=== PATIENT | female | born 1970 | race Caucasian/White ===

== ENCOUNTER → 2021-10-26 13:55 | Outpatient (BNVA) | payer BC, SELFPAY | PROVIDERS: PCP Internal Medicine; Visit Provider Internal Medicine Rheumatology | DX: Z13.89 Encounter for screening for other disorder (principal) ==

== ENCOUNTER → 2022-10-18 13:36 | Outpatient (BNVA) | payer BC, SELFPAY | PROVIDERS: PCP Internal Medicine; Visit Provider Internal Medicine Rheumatology | DX: Z13.89 Encounter for screening for other disorder (principal) ==

== ENCOUNTER 2022-10-18 14:46 | Outpatient (REF) | payer BC, SELFPAY ==
--- NOTE | ~2022-10-18 | XR_ITS ---
EXAMINATION: XR KNEE, RIGHT CLINICAL INFORMATION: Bilateral osteoarthritis at the knee COMPARISON: None available. TECHNIQUE: Three views of the right knee. FINDINGS: Bones and soft tissues are normal. No fracture or joint effusion. Alignment is anatomic. Joint spaces are well maintained. No abnormal soft tissue calcification. XR/XR knee RT 3V IMPRESSION: Normal right knee.
--- NOTE | ~2022-10-18 | XR_ITS ---
EXAMINATION: XR SHOULDER, RIGHT CLINICAL INFORMATION: Pain COMPARISON: None available. TECHNIQUE: AP external rotation, Grashey, scapular Y, and axillary views of the right shoulder. FINDINGS: The bones and soft tissues are normal. No fracture. Glenohumeral and acromioclavicular alignment is anatomic with normal joint space. No abnormal soft tissue calcifications. XR/XR shoulder RT min 2V IMPRESSION: Normal right shoulder.
== END 2022-10-18 14:47 | disposition home or self-care (01) ==
LOC: HO.XRAY 14:46
PROVIDERS: PCP Internal Medicine; Visit Provider Internal Medicine Rheumatology
DX: M17.0 Bilateral primary osteoarthritis of knee (principal); M25.511 Pain in right shoulder; M79.7 Fibromyalgia
CPT/HCPCS: 73030; 73562

== ENCOUNTER → 2022-11-30 08:38 | Outpatient (BNVA) | payer BC, SELFPAY | PROVIDERS: PCP Internal Medicine; Visit Provider Internal Medicine Rheumatology | DX: M75.81 Other shoulder lesions, right shoulder (principal); M22.41 Chondromalacia patellae, right knee; M79.7 Fibromyalgia | CPT/HCPCS: 20610 ==

== ENCOUNTER → 2023-11-22 14:50 | Outpatient (RCR) | payer BC, SELFPAY ==
--- NOTE | 2022-08-30 14:27 | MHC.OT.DC ---
[address] [phone] F: [phone] Occupational Therapy Discharge Note Patient Name: Kristy Li Provider: Pierre Salgado Diagnosis: Osteoarthritis bilateral hands, shoulders, knees Date of Surgery: Date of Evaluation: 07/21/22 Date of Discharge: 08/30/22 Treatments to Date: 7 Cancellations to Date: 2 No Shows to Date: 0 Discharge Status: Discharge Summary: Significant improvement in pain and bilateral dogger strength [facility] right 47 lb left 30 lb Improved pain management with splints and jt protection techniques Quick DASH score 25 pts Extreme 1st MP jt laxity with left thumb . Thumb pain improvement after ionto with dex Pt D/C self due to transportation issue Electronically Signed By: Tyra Brown OT CHT CLT Reviewed/agree with student documentation: N/A Therapist: Please Sign and return to therapist, thank you for your referral.
== END | disposition home or self-care (01) ==
LOC: HO.OT 07-21 12:55
PROVIDERS: PCP Internal Medicine; Visit Provider Student in an Organized Health Care Education/Training Program
DX: M19.041 Primary osteoarthritis, right hand (principal); M19.042 Primary osteoarthritis, left hand
CPT/HCPCS: 29130; 97033; 97035; 97110; 97166; 97535; 97760

== ENCOUNTER 2024-10-30 14:07 | Outpatient (AMB) | payer BC, SELFPAY ==
--- NOTE | 2024-10-30 14:07 | A.OFFVIS_ITS ---
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 Allergies aspirin [ASPIRIN] Allergy (Intermediate, Unverified 10/18/22 13:53) STOMACH UPSET acetaminophen [Percocet] Allergy (Unknown, Verified 10/18/22 13:53) Unknown lidocaine [LIDOCAINE] Allergy (Unknown, Unverified 10/18/22 13:53) NAUSEA/VOMITING codeine [CODEINE] Adverse Reaction (Intermediate, Unverified 10/18/22 13:53) STOMACH UPSET oxycodone [From PERCOCET] Adverse Reaction (Intermediate, Unverified 10/18/22 13:53) STOMACH UPSET Lactose Allergy (Unknown, Uncoded 10/18/22 13:53) Unknown HPI HPI OA: Details: She was having hand pain but saw [facility] and recieved [facility] splints and left cortisone injection. She is planning right [facility] cortisone injection next week. She has had benefit with splinting and left cortisone injection. Hip pain for 4 years. She is unable to sleep on her sides. She is experiencing groin pain. She has history of fibromyalgia and has pain all over. She sees a neurologist who prescribes pregabalin. Neurologists took over prescription for education technician Dr. Worrell when he retired. She is experiencing numbness in her whole back. She saw a chiropractor who did a CT scan of her back and reports she has arthritis. [facility] Medical History (Updated 10/30/24 @ 15:21 by Yuval Rodriguez MD) FH: cholecystectomy Osteoarthritis, hand Osteoarthritis of knees, bilateral Fibromyalgia Surgical History History of esophagogastroduodenoscopy (EGD) History of carpal tunnel release of both wrists Family History Father Stroke CVD (cardiovascular disease) Mother Gastritis Skin cancer Social History Household Members: Spouse Housing: House Are you a primary career placement services counselor to a significant other at home: No Do you presently have visiting nurse or other home services: No 75 years or older and lives alone: No Alcohol intake: never Patient Tobacco Use Status: Never used Tobacco e-Cigarette/Vaping Use: Never Used service: No Current occupational status: disabled Physical Exam Vital Signs: Last Vital Signs Pulse 90 10/30/24 14:08 Pulse Ox 96 10/30/24 14:08 Oxygen Delivery Method Room Air 10/30/24 14:08 BMI result Body Mass Index 28.9 Const Other: General: Comfortable Skin: No lesions seen MSK: Diffuse allodynia. Multiple tender points on back. Normal cervical range of motion. Normal range of motion of upper extremities and lower extremities. Tender to palpate bilateral trochanteric bursae. Normal hip range of motion. She has tenderness of bilateral groin region on palpation. Assessment & Plan Assessment & Plan (1) Greater trochanteric bursitis of both hips: Comment: Discussed diagnosis and conservative management. She has not tolerated NSAIDs in the past due to GI upset. She would like to try physical therapy. Code(s): M70.61 - Trochanteric bursitis, right hip; M70.62 - Trochanteric bursitis, left hip Category: Medical Plan: PT ordered for hip strengthening program Return to clinic in 3 months (2) Fibromyalgia: Comment: Diffuse allodynia is consistent with fibromyalgia. She is on pregabalin. Code(s): M79.7 - Fibromyalgia Category: Medical Plan: I recommend PCP follow-up for further management of fibromyalgia I recommended aquatic therapy. At this time it is unaffordable for patient to join the gym (3) Hip pain, bilateral: Comment: Chronic bilateral groin pain. Code(s): M25.551 - Pain in right hip; M25.552 - Pain in left hip Category: Medical Plan: Bilateral hip x-rays ordered to evaluate for hip pathology contributing to her pain Return to clinic in 3 months Orders: Orders PT Evaluation and Treatment Today M70.61 - Trochanteric bursitis, right hip, M70.62 - Trochanteric bursitis, left hip, M79.7 - Fibromyalgia XR hips ZOFIA min 3V Today M25.551 - Pain in right hip, M25.552 - Pain in left hip Coding Level of Care Code Est Pt Level 4 (48095) Complex EM visit Add On G2211 Diagnoses Greater trochanteric bursitis of both hips M70.61; M70.62 Fibromyalgia M79.7 Hip pain, bilateral M25.551; M25.552
[2024-10-30 14:08] VITALS: BP 120/80; PULSE 90; O2SAT 96; BMI 28.9
--- OUTSIDE RECORDS SUMMARY | 2024-10-30 15:27 | XMS_ITS ---
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 SECA done. Previous weight was 147. Today the patient weight is 143. Pt states she is doing well. MEDICATIONS Medication SIG (Take, Route, Frequency, Duration) Notes Start Date End Date Status Sulfamethoxazole-Trimethopr im 800-160 MG Oral for 7 Days Active hydroCHLOROthiazide 12.5 MG TAKE ONE CAP JAILENE DAILY Oral for 30 Days Active Potassium Chloride ER 10 MEQ TAKE ONE CAPSULE TWICE DAILY Oral for 30 Days Active Montelukast Sodium 10 MG Oral for 90 Days Active Sucralfate 1 GM Oral for 30 Days Active Atorvastatin Calcium 20 MG TAKE ONE TABL ET DAILY Oral for 90 Days Active Trelegy Ellipta 100-62.5-25 MCG/ACT Inhalation for 30 Days Active Cymbalta 30 MG 1 capsule Orally Once a day twice daily Active Pantoprazole Sodium 40 MG TAKE ONE TABLE T EVERY DAY Oral for 90 Days Active Cetirizine HCl 10 MG TAKE ONE TABLET BY MOUTH TWICE DAILY Oral for 90 Days Active traZODone HCl 50 MG TAKE 1/2 TO 1 TABLET EVERY NIGHT AT BEDTIME NEEDED FOR SLEEP Oral for 30 Days Active Zepbound 5 MG/0.5ML 0.5 mL Subcutaneous once weekly for 30 days Active Albuterol Sulfate (2.5 MG/3ML) 0.083% PLEASE SEE ATTACHED FOR DETAILED DIRECTIONS Inhalation for 12 Days Active SOCIAL HISTORY Tobacco Use: Social History Observation Description Date Details (start date - stop date) Never Smoker NA - NA Sex Assigned At : Social History Observation Description Sex Assigned At Unknown Tobacco Use/Smoking Question Answer Notes Are you a nonsmoker VITAL SIGNS Blood pressure systolic 100 mm Hg 06/13/20 24 Blood pressure diastolic 56 mm Hg 024 Heart Rate 80 /min 06/13/2024 Height 59 in 06/13/2024 Weight 143 lbs 06/13/2024 BMI 28.88 kg/m2 06/13/2024 Oximetry 99 % 06/13/2024 Encounters Encounter Location Date Provider Diagnosis [address] [facility] [address] [place] [address] 06/13/2024 Maddi Svrcek Overweight E66.3 ; B RI 28.0-28.9,adult Z68.28 ; Essential hypertension I10 ; Anxiety disorder, unspecified F41.9 ; Depression, unspecified F32.A ; Fibromyalgia M79.7 and Weight loss counseling, encounter for Z71.3 ASSESSMENTS Encounter Date Diagnosis Assessment Notes Treatment Notes Treatment Clinical Notes Section Notes 06/13/2024 Overweight (ICD-10 - E66.3) #Obesity. 06/13/24: 143 pounds, BMI 28.9. She is doing well on Zepbound 5 mg. Her weight and fat mass are down however muscle mass is also down. Discussed importance of protein intake and need for regular exercise including resistance training. Will leave her on current dose and monitor muscle mass at follow-up in 1 month. Follow-up sooner with any concerns. 05/09/24: 147 pounds, BMI 29.7. She is doing fantastic on Zepbound 5 mg. Continue increased protein intake, hydration and regular exercise. Will increase resistance training. Follow-up in 1 month sooner with any concerns. 04/11/24: 155.6 pounds, BMI 31.4. She is doing well on Zepbound 2.5 mg. Will increase to 5 mg on next refill. Reviewed importance of protein intake, hydration and regular exercise including resistance training. Will continue to work on lifestyle modifications and follow-up in 1 month. Follow-up sooner with any concerns. 03/15/24: 160.7 pounds, BMI 32.5. #Hypertension. Followed by PCP. Controlled. #Anxiety and depression. Followed by psychiatry and therapy. Currently on Cymbalta. #Fibromyalgia. On Cymbalta as above The patient will continue exercise regimen with an emphasis on improving/increasing steps to at least 6,000-10,000 steps per day. Increasing cardio and strength training exercises as tolerated to improve weight loss and work on building muscle mass. Patient is committed to smarter eating with calorie counting and mindful eating. Limiting processed foods and carbohydrates and increasing leafy greens and lean proteins as well as fruits into their diet. Patient was counseled on the importance of eating local, organic food when possible. Patient has been counseled regarding effects of GLP/GIP-1 agonists and other FDA approved weight loss medications with regards to a multifactorial approach of weight loss as mentioned above and that the medication alone will not be sufficient to meet patients goals. We discussed holistic medication approach with emphasis on lifestyle modification. Discussed obesity as it increases risk of diabetes, cardiovascular disease, and/or organ damage. We spent a lot of time discussing the relationship between food, exercise, sleep, mental health, and obesity. We discussed the importance of having SECAs done every visit and having accountability done during these visits. That the scale is done to monitor not only weight loss but the body composition during medication management and healthy lifestyle changes. We discussed that if the patient is unable at times to financially afford this scale that we would rather waive the fee and have the scale done than have the patient not have the scale obtained. Will follow up with the patient in 4 weeks time to monitor weight loss. Total time was 30 min, greater than 50 % of time was spent on care coordination Case discussed with collaborating physician Marzena Srinivasan who reviewed the assessment and plan. Chart, medications, labs, vital signs reviewed. Dictation was accomplished with the use of Oree voice recognition software, prone to medical misidentifications and grammatical errors. This is unintentional and the practitioner does try to identify and correct these, but some could still be present. Please do not hesitate to contact practitioner for clarification. All questions answered to patients satisfaction. Patient verbalized understanding of diagnosis and treatments explained. To call sooner prior to next visit it any questions/concerns arise. 06/13/2024 BMI 28.0-28.9,adult (ICD-10 - Z68.28) #Obesity. 06/13/24: 143 pounds, BMI 28.9. She is doing well on Zepbound 5 mg. Her weight and fat mass are down however muscle mass is also down. Discussed importance of protein intake and need for regular exercise including resistance training. Will leave her on current dose and monitor muscle mass at follow-up in 1 month. Follow-up sooner with any concerns. 05/09/24: 147 pounds, BMI 29.7. She is doing fantastic on Zepbound 5 mg. Continue increased protein intake, hydration and regular exercise. Will increase resistance training. Follow-up in 1 month sooner with any concerns. 04/11/24: 155.6 pounds, BMI 31.4. She is doing well on Zepbound 2.5 mg. Will increase to 5 mg on next refill. Reviewed importance of protein intake, hydration and regular exercise including resistance training. Will continue to work on lifestyle modifications and follow-up in 1 month. Follow-up sooner with any concerns. 03/15/24: 160.7 pounds, BMI 32.5. #Hypertension. Followed by PCP. Controlled. #Anxiety and depression. Followed by psychiatry and therapy. Currently on Cymbalta. #Fibromyalgia. On Cymbalta as above The patient will continue exercise regimen with an emphasis on improving/increasing steps to at least 6,000-10,000 steps per day. Increasing cardio and strength training exercises as tolerated to improve weight loss and work on building muscle mass. Patient is committed to smarter eating with calorie counting and mindful eating. Limiting processed foods and carbohydrates and increasing leafy greens and lean proteins as well as fruits into their diet. Patient was counseled on the importance of eating local, organic food when possible. Patient has been counseled regarding effects of GLP/GIP-1 agonists and other FDA approved weight loss medications with regards to a multifactorial approach of weight loss as mentioned above and that the medication alone will not be sufficient to meet patients goals. We discussed holistic medication approach with emphasis on lifestyle modification. Discussed obesity as it increases risk of diabetes, cardiovascular disease, and/or organ damage. We spent a lot of time discussing the relationship between food, exercise, sleep, mental health, and obesity. We discussed the importance of having SECAs done every visit and having accountability done during these visits. That the scale is done to monitor not only weight loss but the body composition during medication management and healthy lifestyle changes. We discussed that if the patient is unable at times to financially afford this scale that we would rather waive the fee and have the scale done than have the patient not have the scale obtained. Will follow up with the patient in 4 weeks time to monitor weight loss. Total time was 30 min, greater than 50 % of time was spent on care coordination Case discussed with collaborating physician Marzena Srinivasan who reviewed the assessment and plan. Chart, medications, labs, vital signs reviewed. Dictation was accomplished with the use of Oree voice recognition software, prone to medical misidentifications and grammatical errors. This is unintentional and the practitioner does try to identify and correct these, but some could still be present. Please do not hesitate to contact practitioner for clarification. All questions answered to patients satisfaction. Patient verbalized understanding of diagnosis and treatments explained. To call sooner prior to next visit it any questions/concerns arise. 06/13/2024 Essential hypertension (ICD-10 - I10) #Obesity. 06/13/24: 143 pounds, BMI 28.9. She is doing well on Zepbound 5 mg. Her weight and fat mass are down however muscle mass is also down. Discussed importance of protein intake and need for regular exercise including resistance training. Will leave her on current dose and monitor muscle mass at follow-up in 1 month. Follow-up sooner with any concerns. 05/09/24: 147 pounds, BMI 29.7. She is doing fantastic on Zepbound 5 mg. Continue increased protein intake, hydration and regular exercise. Will increase resistance training. Follow-up in 1 month sooner with any concerns. 04/11/24: 155.6 pounds, BMI 31.4. She is doing well on Zepbound 2.5 mg. Will increase to 5 mg on next refill. Reviewed importance of protein intake, hydration and regular exercise including resistance training. Will continue to work on lifestyle modifications and follow-up in 1 month. Follow-up sooner with any concerns. 03/15/24: 160.7 pounds, BMI 32.5. #Hypertension. Followed by PCP. Controlled. #Anxiety and depression. Followed by psychiatry and therapy. Currently on Cymbalta. #Fibromyalgia. On Cymbalta as above The patient will continue exercise regimen with an emphasis on improving/increasing steps to at least 6,000-10,000 steps per day. Increasing cardio and strength training exercises as tolerated to improve weight loss and work on building muscle mass. Patient is committed to smarter eating with calorie counting and mindful eating. Limiting processed foods and carbohydrates and increasing leafy greens and lean proteins as well as fruits into their diet. Patient was counseled on the importance of eating local, organic food when possible. Patient has been counseled regarding effects of GLP/GIP-1 agonists and other FDA approved weight loss medications with regards to a multifactorial approach of weight loss as mentioned above and that the medication alone will not be sufficient to meet patients goals. We discussed holistic medication approach with emphasis on lifestyle modification. Discussed obesity as it increases risk of diabetes, cardiovascular disease, and/or organ damage. We spent a lot of time discussing the relationship between food, exercise, sleep, mental health, and obesity. We discussed the importance of having SECAs done every visit and having accountability done during these visits. That the scale is done to monitor not only weight loss but the body composition during medication management and healthy lifestyle changes. We discussed that if the patient is unable at times to financially afford this scale that we would rather waive the fee and have the scale done than have the patient not have the scale obtained. Will follow up with the patient in 4 weeks time to monitor weight loss. Total time was 30 min, greater than 50 % of time was spent on care coordination Case discussed with collaborating physician Marzena Srinivasan who reviewed the assessment and plan. Chart, medications, labs, vital signs reviewed. Dictation was accomplished with the use of Oree voice recognition software, prone to medical misidentifications and grammatical errors. This is unintentional and the practitioner does try to identify and correct these, but some could still be present. Please do not hesitate to contact practitioner for clarification. All questions answered to patients satisfaction. Patient verbalized understanding of diagnosis and treatments explained. To call sooner prior to next visit it any questions/concerns arise. 06/13/2024 Anxiety disorder, unspecified (ICD-10 - F41.9) #Obesity. 06/13/24: 143 pounds, BMI 28.9. She is doing well on Zepbound 5 mg. Her weight and fat mass are down however muscle mass is also down. Discussed importance of protein intake and need for regular exercise including resistance training. Will leave her on current dose and monitor muscle mass at follow-up in 1 month. Follow-up sooner with any concerns. 05/09/24: 147 pounds, BMI 29.7. She is doing fantastic on Zepbound 5 mg. Continue increased protein intake, hydration and regular exercise. Will increase resistance training. Follow-up in 1 month sooner with any concerns. 04/11/24: 155.6 pounds, BMI 31.4. She is doing well on Zepbound 2.5 mg. Will increase to 5 mg on next refill. Reviewed importance of protein intake, hydration and regular exercise including resistance training. Will continue to work on lifestyle modifications and follow-up in 1 month. Follow-up sooner with any concerns. 03/15/24: 160.7 pounds, BMI 32.5. #Hypertension. Followed by PCP. Controlled. #Anxiety and depression. Followed by psychiatry and therapy. Currently on Cymbalta. #Fibromyalgia. On Cymbalta as above The patient will continue exercise regimen with an emphasis on improving/increasing steps to at least 6,000-10,000 steps per day. Increasing cardio and strength training exercises as tolerated to improve weight loss and work on building muscle mass. Patient is committed to smarter eating with calorie counting and mindful eating. Limiting processed foods and carbohydrates and increasing leafy greens and lean proteins as well as fruits into their diet. Patient was counseled on the importance of eating local, organic food when possible. Patient has been counseled regarding effects of GLP/GIP-1 agonists and other FDA approved weight loss medications with regards to a multifactorial approach of weight loss as mentioned above and that the medication alone will not be sufficient to meet patients goals. We discussed holistic medication approach with emphasis on lifestyle modification. Discussed obesity as it increases risk of diabetes, cardiovascular disease, and/or organ damage. We spent a lot of time discussing the relationship between food, exercise, sleep, mental health, and obesity. We discussed the importance of having SECAs done every visit and having accountability done during these visits. That the scale is done to monitor not only weight loss but the body composition during medication management and healthy lifestyle changes. We discussed that if the patient is unable at times to financially afford this scale that we would rather waive the fee and have the scale done than have the patient not have the scale obtained. Will follow up with the patient in 4 weeks time to monitor weight loss. Total time was 30 min, greater than 50 % of time was spent on care coordination Case discussed with collaborating physician Marzena Srinivasan who reviewed the assessment and plan. Chart, medications, labs, vital signs reviewed. Dictation was accomplished with the use of Oree voice recognition software, prone to medical misidentifications and grammatical errors. This is unintentional and the practitioner does try to identify and correct these, but some could still be present. Please do not hesitate to contact practitioner for clarification. All questions answered to patients satisfaction. Patient verbalized understanding of diagnosis and treatments explained. To call sooner prior to next visit it any questions/concerns arise. 06/13/2024 Depression, unspecified (ICD-10 - F32.A) #Obesity. 06/13/24: 143 pounds, BMI 28.9. She is doing well on Zepbound 5 mg. Her weight and fat mass are down however muscle mass is also down. Discussed importance of protein intake and need for regular exercise including resistance training. Will leave her on current dose and monitor muscle mass at follow-up in 1 month. Follow-up sooner with any concerns. 05/09/24: 147 pounds, BMI 29.7. She is doing fantastic on Zepbound 5 mg. Continue increased protein intake, hydration and regular exercise. Will increase resistance training. Follow-up in 1 month sooner with any concerns. 04/11/24: 155.6 pounds, BMI 31.4. She is doing well on Zepbound 2.5 mg. Will increase to 5 mg on next refill. Reviewed importance of protein intake, hydration and regular exercise including resistance training. Will continue to work on lifestyle modifications and follow-up in 1 month. Follow-up sooner with any concerns. 03/15/24: 160.7 pounds, BMI 32.5. #Hypertension. Followed by PCP. Controlled. #Anxiety and depression. Followed by psychiatry and therapy. Currently on Cymbalta. #Fibromyalgia. On Cymbalta as above The patient will continue exercise regimen with an emphasis on improving/increasing steps to at least 6,000-10,000 steps per day. Increasing cardio and strength training exercises as tolerated to improve weight loss and work on building muscle mass. Patient is committed to smarter eating with calorie counting and mindful eating. Limiting processed foods and carbohydrates and increasing leafy greens and lean proteins as well as fruits into their diet. Patient was counseled on the importance of eating local, organic food when possible. Patient has been counseled regarding effects of GLP/GIP-1 agonists and other FDA approved weight loss medications with regards to a multifactorial approach of weight loss as mentioned above and that the medication alone will not be sufficient to meet patients goals. We discussed holistic medication approach with emphasis on lifestyle modification. Discussed obesity as it increases risk of diabetes, cardiovascular disease, and/or organ damage. We spent a lot of time discussing the relationship between food, exercise, sleep, mental health, and obesity. We discussed the importance of having SECAs done every visit and having accountability done during these visits. That the scale is done to monitor not only weight loss but the body composition during medication management and healthy lifestyle changes. We discussed that if the patient is unable at times to financially afford this scale that we would rather waive the fee and have the scale done than have the patient not have the scale obtained. Will follow up with the patient in 4 weeks time to monitor weight loss. Total time was 30 min, greater than 50 % of time was spent on care coordination Case discussed with collaborating physician Marzena Srinivasan who reviewed the assessment and plan. Chart, medications, labs, vital signs reviewed. Dictation was accomplished with the use of Oree voice recognition software, prone to medical misidentifications and grammatical errors. This is unintentional and the practitioner does try to identify and correct these, but some could still be present. Please do not hesitate to contact practitioner for clarification. All questions answered to patients satisfaction. Patient verbalized understanding of diagnosis and treatments explained. To call sooner prior to next visit it any questions/concerns arise. 06/13/2024 Fibromyalgia (ICD-10 - M79.7) #Obesity. 06/13/24: 143 pounds, BMI 28.9. She is doing well on Zepbound 5 mg. Her weight and fat mass are down however muscle mass is also down. Discussed importance of protein intake and need for regular exercise including resistance training. Will leave her on current dose and monitor muscle mass at follow-up in 1 month. Follow-up sooner with any concerns. 05/09/24: 147 pounds, BMI 29.7. She is doing fantastic on Zepbound 5 mg. Continue increased protein intake, hydration and regular exercise. Will increase resistance training. Follow-up in 1 month sooner with any concerns. 04/11/24: 155.6 pounds, BMI 31.4. She is doing well on Zepbound 2.5 mg. Will increase to 5 mg on next refill. Reviewed importance of protein intake, hydration and regular exercise including resistance training. Will continue to work on lifestyle modifications and follow-up in 1 month. Follow-up sooner with any concerns. 03/15/24: 160.7 pounds, BMI 32.5. #Hypertension. Followed by PCP. Controlled. #Anxiety and depression. Followed by psychiatry and therapy. Currently on Cymbalta. #Fibromyalgia. On Cymbalta as above The patient will continue exercise regimen with an emphasis on improving/increasing steps to at least 6,000-10,000 steps per day. Increasing cardio and strength training exercises as tolerated to improve weight loss and work on building muscle mass. Patient is committed to smarter eating with calorie counting and mindful eating. Limiting processed foods and carbohydrates and increasing leafy greens and lean proteins as well as fruits into their diet. Patient was counseled on the importance of eating local, organic food when possible. Patient has been counseled regarding effects of GLP/GIP-1 agonists and other FDA approved weight loss medications with regards to a multifactorial approach of weight loss as mentioned above and that the medication alone will not be sufficient to meet patients goals. We discussed holistic medication approach with emphasis on lifestyle modification. Discussed obesity as it increases risk of diabetes, cardiovascular disease, and/or organ damage. We spent a lot of time discussing the relationship between food, exercise, sleep, mental health, and obesity. We discussed the importance of having SECAs done every visit and having accountability done during these visits. That the scale is done to monitor not only weight loss but the body composition during medication management and healthy lifestyle changes. We discussed that if the patient is unable at times to financially afford this scale that we would rather waive the fee and have the scale done than have the patient not have the scale obtained. Will follow up with the patient in 4 weeks time to monitor weight loss. Total time was 30 min, greater than 50 % of time was spent on care coordination Case discussed with collaborating physician Marzena Srinivasan who reviewed the assessment and plan. Chart, medications, labs, vital signs reviewed. Dictation was accomplished with the use of Oree voice recognition software, prone to medical misidentifications and grammatical errors. This is unintentional and the practitioner does try to identify and correct these, but some could still be present. Please do not hesitate to contact practitioner for clarification. All questions answered to patients satisfaction. Patient verbalized understanding of diagnosis and treatments explained. To call sooner prior to next visit it any questions/concerns arise. 06/13/2024 Weight loss counseling, encounter for (ICD-10 - Z71.3) #Obesity. 06/13/24: 143 pounds, BMI 28.9. She is doing well on Zepbound 5 mg. Her weight and fat mass are down however muscle mass is also down. Discussed importance of protein intake and need for regular exercise including resistance training. Will leave her on current dose and monitor muscle mass at follow-up in 1 month. Follow-up sooner with any concerns. 05/09/24: 147 pounds, BMI 29.7. She is doing fantastic on Zepbound 5 mg. Continue increased protein intake, hydration and regular exercise. Will increase resistance training. Follow-up in 1 month sooner with any concerns. 04/11/24: 155.6 pounds, BMI 31.4. She is doing well on Zepbound 2.5 mg. Will increase to 5 mg on next refill. Reviewed importance of protein intake, hydration and regular exercise including resistance training. Will continue to work on lifestyle modifications and follow-up in 1 month. Follow-up sooner with any concerns. 03/15/24: 160.7 pounds, BMI 32.5. #Hypertension. Followed by PCP. Controlled. #Anxiety and depression. Followed by psychiatry and therapy. Currently on Cymbalta. #Fibromyalgia. On Cymbalta as above The patient will continue exercise regimen with an emphasis on improving/increasing steps to at least 6,000-10,000 steps per day. Increasing cardio and strength training exercises as tolerated to improve weight loss and work on building muscle mass. Patient is committed to smarter eating with calorie counting and mindful eating. Limiting processed foods and carbohydrates and increasing leafy greens and lean proteins as well as fruits into their diet. Patient was counseled on the importance of eating local, organic food when possible. Patient has been counseled regarding effects of GLP/GIP-1 agonists and other FDA approved weight loss medications with regards to a multifactorial approach of weight loss as mentioned above and that the medication alone will not be sufficient to meet patients goals. We discussed holistic medication approach with emphasis on lifestyle modification. Discussed obesity as it increases risk of diabetes, cardiovascular disease, and/or organ damage. We spent a lot of time discussing the relationship between food, exercise, sleep, mental health, and obesity. We discussed the importance of having SECAs done every visit and having accountability done during these visits. That the scale is done to monitor not only weight loss but the body composition during medication management and healthy lifestyle changes. We discussed that if the patient is unable at times to financially afford this scale that we would rather waive the fee and have the scale done than have the patient not have the scale obtained. Will follow up with the patient in 4 weeks time to monitor weight loss. Total time was 30 min, greater than 50 % of time was spent on care coordination Case discussed with collaborating physician Marzena Srinivasan who reviewed the assessment and plan. Chart, medications, labs, vital signs reviewed. Dictation was accomplished with the use of [employer] voice recognition software, prone to medical misidentifications and grammatical errors. This is unintentional and the practitioner does try to identify and correct these, but some could still be present. Please do not hesitate to contact practitioner for clarification. All questions answered to patients satisfaction. Patient verbalized understanding of diagnosis and treatments explained. To call sooner prior to next visit it any questions/concerns arise. PLAN OF TREATMENT Medication Medication Name Sig Start Date Stop Date Notes Zepbound 5 MG/0.5ML 0.5 mL Subcutaneous once weekly for 30 days Next Appt Details Follow Up: 4 Weeks, Reason: zepbound Progress Notes * Kristy LIDOB:1970 ( 54 yo F)Acc No.[id number]:06/13/2024 Patient:??Kristy LI Provider:??Maddi Pérez PA-C :1970?Age:54 Y?Sex:Fe male Date:06/13/2024 Address:[address] [place], [place] [id number] Pcp:JOE COOLEY Subjective: * Chief Complaints: * ?1. Patient is here for weight management follow up. SECA done. Previous weight was 147. Today the patient weight is 143. Pt states she is doing well.. * HPI: ?Constitutional:? Kristy is a 54-year-old female here today [...] Mood has been well-controlled on Cymbalta. She has been on Zepbound 5 mg tolerating it well without side effects. Has been consistent with protein intake, increase hydration. She has not been exercising this past month. B complex vitamins have helped with energy. ?Was referred by bariatric specialist- Dr. Umanzor ?Will be starting with [employer] lead ?PMH: Asthma, fibromyalgia, depression, anxiety, lung granuloma, OA, GERD- recent endoscopy. had dilation of esophagus for ? stricture. ?gallbladder removed november 27 ?HIighest weight: 165 ?Lowest weight: 125 ?Current weight: 143, BMI 28.9 ?Weight last visit: 147, BMI 29.7 ?Goal weight: 125-128 ?Trials in the past: Saxenda, metformin ?Protein intake: unsure ?Diet: tends to crave sweets. Has been increasing salads, more take out lately ?Water intake: not great with water intake. small amount of coffee ?Exercise: walking ?Barriers: ?FH: No thyroid cancer ?Recent Labs: 02/29/24 ?5.5 a1c ?cortisol 1.5 ?total 156, tg 178, hdl 56, ldl 65 ?[facility]- therapist. Ewa Morrison- gabby, currently on cymbalta 30 mg BID, ?Updated SECA reviewed with patient. Weight is down 4 pounds. Fat mass is down 3 pounds. Muscle mass is down 3 pounds. * ROS:?All Other Systems:?Review of Systems (ROS)??All others negative except those mentioned in HPI.? * Medical History:??Seasonal a llergies, Hypertension, Hypercholesterolemia, Asthma, Weight gain/loss, Gallbladder disease, Arthritis, Heart murmur, Anxiety, Depression, Hearing loss. * Surgical History:??cholecyst ectomy 11/28/23, biliary dyskinesia , raised her bladder . * Family History:??Father: ali ve.??Mother: alive.??1 son(s) . .?? father-emphysema, diabetic mother-HTN,anxiety,depression,osteoporosis,arthritis, diabetes, heart issues. * Social History:?Tobacco Use:??Tobacco Use/Smoking??Are you a??nonsmoker.?? * Medications:??Taking Zepboun d 5 MG/0.5ML Solution Auto-injector 0.5 mL Subcutaneous once weekly , Taking Cymbalta 30 MG Capsule Delayed Release [...] TAKE ONE TABLET EVERY DAY Oral , Medication List reviewed and reconciled with the patient * Allergies:??Percocet, Ibupro fen, Codeine. Objective: * Vitals:??HR:80/min, BP:100/5 6mm Hg, Wt:143lbs, BMI:28.88Index, Ht: 59 in, Oxygen sat %:99%. * Physical Examination:?General: Well appearing, well nourished, age appropriate in no acute distress. Speaking in full, clear sentences. ?SKIN: Warm, dry intact. No rashes/lesions. ?HEENT: Normocephalic atraumatic. EOM intact. No nystagmus noted. PERRLA. ?LUNGS: Clear to auscultation bilaterally, no wheezes, rales or rhonchi ?CARDIAC: Regular rate and rhythm, no murmurs, rubs or gallops. ?Extremities: Warm and well perfused. No edema noted. ?Neuro: CN II-XI grossly intact. Speaking in full sentences. Hearing intact. Assessment: * Assessment: 1.??Overweight - E66.3 (Prim amos)??2.??BMI 28.0-28.9,adult - Z68.28??3.??Essential hypertension - I10??4.??Anxiety disorder, unspecified - F41.9??5.??Depression, unspecified - F32.A??6.??Fibromyalgia - M79.7??7.??Weight loss counseling, encounter for - Z71.3?? #Obesity. 06/13/24: 143 pounds, BMI 28.9. She is doing well on Zepbound 5 mg. Her weight and fat mass are down however muscle mass is also down. Discussed importance of protein intake and need for regular exercise including resistance training. Will leave her on current dose and monitor muscle mass at follow-up in 1 month. Follow-up sooner with any concerns. 05/09/24: 147 pounds, BMI 29.7. She is doing fantastic on Zepbound 5 mg. Continue increased protein intake, hydration and regular exercise. Will increase resistance training. Follow-up in 1 month sooner with any concerns. 04/11/24: 155.6 pounds, BMI 31.4. She is doing well on Zepbound 2.5 mg. Will increase to 5 mg on next refill. Reviewed importance of protein intake, hydration and regular exercise including resistance training. Will continue to work on lifestyle modifications and follow-up in 1 month. Follow-up sooner with any concerns. 03/15/24: 160.7 pounds, BMI 32.5. #Hypertension. Followed by PCP. Controlled. #Anxiety and depression. Followed by psychiatry and therapy. Currently on Cymbalta. #Fibromyalgia. On Cymbalta as above The patient will continue exercise regimen with an emphasis on improving/increasing steps to at least 6,000-10,000 steps per day. Increasing cardio and strength training exercises as tolerated to improve weight loss and work on building muscle mass. Patient is committed to smarter eating with calorie counting and mindful eating. Limiting processed foods and carbohydrates and increasing leafy greens and lean proteins as well as fruits into their diet. Patient was counseled on the importance of eating local, organic food when possible. Patient has been counseled regarding effects of GLP/GIP-1 agonists and other FDA approved weight loss medications with regards to a multifactorial approach of weight loss as mentioned above and that the medication alone will not be sufficient to meet patients goals. We discussed holistic medication approach with emphasis on lifestyle modification. Discussed obesity as it increases risk of diabetes, cardiovascular disease, and/or organ damage. We spent a lot of time discussing the relationship between food, exercise, sleep, mental health, and obesity. We discussed the importance of having SECAs done every visit and having accountability done during these visits. That the scale is done to monitor not only weight loss but the body composition during medication management and healthy lifestyle changes. We discussed that if the patient is unable at times to financially afford this scale that we would rather waive the fee and have the scale done than have the patient not have the scale obtained. Will follow up with the patient in 4 weeks time to monitor weight loss. Total time was 30 min, greater than 50 % of time was spent on care coordination Case discussed with collaborating physician Marzena Srinivasan who reviewed the assessment and plan. Chart, medications, labs, vital signs reviewed. Dictation was accomplished with the use of [employer] voice recognition software, prone to medical misidentifications [...] questions/concerns arise. Plan: * Treatment: * Procedure Codes:??G0447 FCE- FCE BEHAVRL CNSL OBESITY 15 MIN, Modifiers: 59 * Follow Up:??4 Weeks (Reason: zepbound) * Images: Billing Information: * Visit Code:?? 01391 Office Visit, Est Pt., Level 4. * Procedure Codes:?? G0447 FCE-FCE BEHAVRL CNSL OBESITY 15 MIN. Modifiers: 59 * Sign off status: Completed true * Provider:??Maddi Pérez PA-C Date:??05/27 History and Physical Notes * HPI (History [...] Mood has been well-controlled on Cymbalta. She has been on Zepbound 5 mg tolerating it well without side effects. Has been consistent with protein intake, increase hydration. She has not been exercising this past month. B complex vitamins have helped with energy. Was referred by bariatric specialist- Dr. Umanzor Will be starting with [employer] lead PMH: Asthma, fibromyalgia, depression, anxiety, lung granuloma, OA, GERD- recent endoscopy. had dilation of esophagus for ? stricture. gallbladder removed november 27 HIighest weight: 165 Lowest weight: 125 Current weight: 143, BMI 28.9 Weight last visit: 147, BMI 29.7 Goal weight: 125-128 Trials in the past: Saxenda, metformin Protein intake: unsure Diet: tends to crave sweets. Has been increasing salads, more take out lately Water intake: not great with water intake. small amount of coffee Exercise: walking Barriers: FH: No thyroid cancer Recent Labs: 02/29/24 5.5 a1c cortisol 1.5 total 156, tg 178, hdl 56, ldl 65 [facility]- therapist. Ewa pierre, currently on cymbalta 30 mg BID, Updated SECA reviewed with patient. Weight is down 4 pounds. Fat mass is down 3 pounds. Muscle mass is down 3 pounds. Physical Examination Category Sub-Category Detail Notes Section [...]
--- OUTSIDE RECORDS SUMMARY | 2024-10-30 15:27 | XMS_ITS | Data Portability ---
Author Organization [place] - [facility], Allergy Address [address] [address] Care Team Providers Care Shipping Track Supervisor Name Role Phone JOE COOLEY Primary Care Provider Assessment Encounter Date Assessment Date Assessment LastModified by Organization Details LastModified Time 04/25/2024 04/25/2024 Patient with significant asthma, allergies, TMJ and hearing loss. We discussed that there is no evidence of ear infections. Given her history of allergies she likely has some chronic sinus inflammation. I would continue with the topical steroid sprays and saline irrigations. She will try to find a physical therapist that can work with her fibromyalgia and her TMJ dysfunction. She is not quite ready for hearing aids and we will have her come back next year for follow-up [email or web address] Not available 04/25/2024 10:31:30 Plan of Treatment Reminders Order Date Submit Date Provider Last Modified By Organization Details Last Modified Time Details Appointments Establish ed 30 2024 10:30A M GRISELDA CERDA MD Not available Not available Not available Hearing Test 2024 10:30A M Hearing Test Not available Not available Not available Establish ed 30 2024 11:00A M GRISELDA CERDA MD Not available Not available Not available Lab None recorded. Referral None recorded. Procedures None recorded. Surgeries None recorded. Imaging None recorded. Medication Orders None recorded. Patient TargetsNo targets recorded. Patient InstructionsNo instructions recorded. Reason for Referral None Reported. Results Created Date Observation Date Name Description Value Unit Range Abnormal Flag Note LastModifiedBy Organization Detail LastModifiedTime 04/25/20 24 audio gram No observ ation record ed. [email or web address] Not Available 03/29 10:55:50 Result Notes None recorded. Problems Name Problem SNOMED Code Status Onset Date Resolution Date Notes Provider Name and Address Organization Details Recorded Time Headache 59819342 Active 2015 Headache; Note: Date Diagnosed : 10/06/2015 9:13 AM (R51) Not Available [facility] 4 02:31:17 Bilateral earache 554367879 Active 2019 Otalgia, bilateral ; Note: Date Diagnosed : 08/28/2019 3:36 PM (H92.03) Not Available [facility] 4 02:31:28 Sensorine ural hearing loss of bilateral ears 450408401 Active 2016 Sensorine ural hearing loss, bilateral ; Note: Date Diagnosed : 7 4:34 PM (H90.3) Not Available [facility] 4 02:31:30 Allergic rhinitis caused by pollen 36787200 Active 2015 Allergic rhinitis: Pollinosi s; CMS Risk: low risk [facility] Treatment : new problem (to examiner) : no additiona l workup planned N ote: Date Diagnosed : 07/09/2014 11:57 AM (477.0) ; Start Date : 5 Allergi c rhinitis due to pollen; Note: Date Diagnosed : 08/15/2015 1:47 PM (J30.1) Not Available [facility] 4 02:31:33 Nasal congestio n 69903084 Active 2019 Nasal congestio n; Note: Date Diagnosed : 08/28/2019 3:37 PM (R09.81) Not Available [facility] 4 02:31:26 Snoring 92651334 Active 2015 Snoring; Note: Date Diagnosed : 10/06/2015 9:13 AM (R06.83) Not Available [facility] 4 02:31:32 Chronic rhinitis 73369077 Active 2015 Chronic rhinitis; Note: Date Diagnosed : 11/17/2015 4:40 PM (J31.0) Not Available [facility] 4 02:31:20 Bilateral temporoma ndibular joint pain 57961574394 936261 Active 2019 Arthralgi a of bilateral temporoma ndibular joint; Note: Date Diagnosed : 08/28/2019 3:36 PM (M26.623) Not Available [facility] 4 02:31:23 Allergic rhinitis 61019350 Active 2014 Allergic rhinitis: Due to other allergen; Note: Date Diagnosed : 08/21/2014 11:43 AM (477.8) Not Available [facility] 4 02:31:31 Mild intermitt ent asthma 851515819 Active 2016 Mild intermitt ent asthma, uncomplic ated; Note: Date Diagnosed : 7 4:21 PM (J45.20) Not Available [facility] 4 02:31:16 Fatigue 22209501 Active 2015 Other fatigue; Note: Date Diagnosed : 11/17/2015 4:18 PM (R53.83) Not Available [facility] 4 02:31:36 Abnormal auditory perceptio n 65842479 Active 2016 Other abnormal auditory perceptio ns, bilateral ; Note: Date Diagnosed : 7 4:21 PM (H93.293) Not Available [facility] 4 02:31:32 Recurrent acute sinusitis 195112527 Active 2020 Other acute recurrent sinusitis ; Note: Date Diagnosed : 09/01/2020 2:42 PM (J01.81) Not Available [facility] 4 02:31:28 Obstructi ve sleep apnea syndrome 10121285 Active 2015 Obstructi ve sleep apnea (adult) (pediatri c); Note: Date Diagnosed : 11/17/2015 4:16 PM (G47.33) Not Available [facility] 4 02:31:24 Bilateral tinnitus 34027182029 02 Active 2016 Tinnitus, bilateral ; Note: Date Diagnosed : 7 4:21 PM (H93.13) Not Available [facility] 4 02:31:26 Chronic sinusitis 10765659 Active 2023 GRISELDA MICHAELS MD [address] [place] [address], [place], [address] , [place] - [facility] 4 10:30:30 Moderate persisten t asthma 436569189 Active 2023 GRISELDA MICHAELS MD [address] [facility],[place] [address], [place], [address] , [place] - [facility] 4 10:30:36 Problem Notes None recorded. Procedures Surgical History Date Name Laterality Status Provider Name and Address Organization Details Recorded Time 04/25/2024 Comp Audio with Tymps - 43837 & 36154 completed BENJIE SOTO [address] [facility],[place] [address], [place], [address], [facility] - [facility] 04/25/2024 09:42:50 Imaging Results Imaging Date Name Status LastModified by Organiz ation Details LastModified Time 04/25/2024 audiogram completed [email or web address] Information n ot available 04/25/2024 10:55:50 Procedure Notes None recorded. Medical Equipment None Reported. Allergies Allergen ID Allergen Name Allergen Category Reaction Reaction Severity Criticality Documentation Date Start Date Code Code System Note Provider Name and Address Organization Details Recorded Time 87871 ibuprofen medicatio n other Not available Not available 11/08/2023 5640 RxNorm React ion: unkno wn, unspe cifie d;; Not Available [facility] 4 01:01:11 99027 codeine sulfate medicatio n other Not available Not available 11/08/2023 91361 RxNorm React ion: unkno wn, unspe cifie d;; Not Available [facility] 4 01:01:20 46568 acetamino phen / oxycodone medicatio n other Not available Not available 11/08/2023 64858 3 RxNorm React ion: unkno wn, unspe cifie d;; Not Available [facility] 4 01:01:23 Medications Name Sig Start Date Stop Date Status Note LastModified by Organization Details LastModified Time amoxicill in 500 mg capsule TAKE 1 CAPSULE (500 MG) BY MOUTH EVERY 8 HOURS FOR 7 DAYS 04/25 completed Not Available Not Available Not Available clotrimaz ole 10 mg jeronimo DISSOLVE ONE jeronimo BY MOUTH FIVE TIMES DAILY 10/30 /2024 completed Not Available Not Available Not Available nystatin 100,000 unit/mL oral suspensio n TAKE FOUR ml's BY MOUTH THREE TIMES DAILY active Not Available Not Available No t Available potassium chloride ER 10 mEq capsule,e xtended release TAKE ONE CAPSULE TWICE DAILY active Not Available Not Available No t Available gabapenti n 600 mg tablet TAKE ONE TABLET THREE TIMES DAILY 04/25 completed Not Available Not Available Not Available doxycycli ne hyclate 100 mg capsule TAKE ONE CAPSULE BY MOUTH TWICE DAILY 04/25 completed Not Available Not Available Not Available atorvasta tin 20 mg tablet TAKE ONE TABLET DAILY active Not Available Not Available No t Available albuterol sulfate 2.5 mg/3 mL (0.083 %) solution for nebulizat ion PLEASE SEE ATTACHED FOR DETAILED DIRECTIO NS active Not Available Not Available No t Available trazodone 50 mg tablet TAKE 1/2 TO 1 TABLET EVERY NIGHT AT BEDTIME NEEDED FOR SLEEP active Not Available Not Available No t Available cetirizin e 10 mg tablet TAKE ONE TABLET BY MOUTH TWICE DAILY active Not Available Not Available No t Available oxybutyni n chloride ER 10 mg tablet,ex tended release 24 hr TAKE ONE TABLET AT BEDTIME 04/25 completed Not Available Not Available Not Available azithromy darwin 250 mg tablet TAKE 2 TABLETS BY MOUTH TODAY THEN 1 TABLET DAILY ON DAYS 2-10 04/25 completed Not Available Not Available Not Available senna 8.6 mg tablet TAKE ONE TABLET BY MOUTH THREE TIMES DAILY NEEDED FOR CONSTIPA TION 04/25 completed Not Available Not Available Not Available fluconazo le 200 mg tablet TAKE ONE TABLET ONCE DAILY FOR 21 DAYS 04/25 completed Not Available Not Available Not Available sucralfat e 1 gram tablet TAKE ONE TABLET FOUR TIMES DAILY active Not Available Not Available No t Available ondansetr on HCl 4 mg tablet TAKE ONE TABLET EVERY DAY NEEDED active Not Available Not Available No t Available prednison e 20 mg tablet TAKE 1 TABLET BY MOUTH TWICE A DAY FOR 2 DAYS 04/25 completed Not Available Not Available Not Available dexametha sone 6 mg tablet TAKE 2 TABLETS BY MOUTH ONCE 04/25 completed Not Available Not Available Not Available sulfameth oxazole 800 mg-trimet hoprim 160 mg tablet TAKE ONE TABLET TWICE DAILY 04/25 completed Not Available Not Available Not Available doxycycli ne monohydra te 100 mg tablet TAKE 1 TABLET BY MOUTH TWICE A DAY FOR 10 DAYS 04/25 completed Not Available Not Available Not Available tramadol 50 mg tablet TAKE ONE TABLET EVERY 6 HOURS NEEDED MILD PAIN 04/25 completed Not Available Not Available Not Available pantopraz ole 20 mg tablet,de layed release TAKE ONE TABLET DAILY 04/25 completed Not Available Not Available Not Available methocarb aydee 750 mg tablet TAKE ONE TABLET THREE TIMES DAILY NEEDED FOR PAIN active Not Available Not Available No t Available meclizine 25 mg tablet TAKE ONE TABLET BY MOUTH EVERY EIGHT HOURS NEEDED active Not Available Not Available No t Available pantopraz ole 40 mg tablet,de layed release TAKE ONE TABLET EVERY DAY active Not Available Not Available No t Available triamcino lone acetonide 55 mcg nasal spray aerosol inhale 2 sprays in each nostril twice daily active Not Available Not Available No t Available hydrochlo rothiazid e 12.5 mg capsule TAKE ONE CAPSULE DAILY active Not Available Not Available No t Available monteluka st 10 mg tablet TAKE ONE TABLET BY MOUTH AT BEDTIME active Not Available Not Available No t Available hydroxyzi ne HCl 25 mg tablet TAKE ONE TABLET TWICE DAILY NEEDED FOR ANXIETY active Not Available Not Available No t Available azelastin e 137 mcg (0.1 %) nasal spray Inhale 2 spray into both nostrils twice a day as directed 10/11 completed Medicati on ID: [id number] P rescribe d By Name: RUBI Silverio nd Name: azelasti ne Send Method: E-Prescr ibed Sub s Allowed: subs OK Medic ationGen ericName : azelasti ne Not Available Not Available Not Available Nasonex 50 mcg/actua tion Qulin 2 spray into both nostrils 10/11 completed Medicati on ID: [id number] D uration Value: 90 Prescri bed By Name: RUBI Chery nd Name: Nasonex Send Method: E-Prescr ibed Sub s Allowed: subs OK Medic ationGen ericName : Nasonex Not Available Not Available Not Available ipratropi um bromide 42 mcg (0.06 %) nasal spray INHALE TWO SPRAYS IN EACH NOSTRIL TWICE DAILY active Not Available Not Available No t Available amoxicill in 875 mg-potass ium clavulana te 125 mg tablet TAKE ONE TABLET TWICE DAILY FOR 10 DAYS 04/25 completed Not Available Not Available Not Available amoxicill in 500 mg-potass ium clavulana te 125 mg tablet TAKE 1 TABLET BY MOUTH THREE TIMES A DAY 04/25 completed Not Available Not Available Not Available Ventolin HFA 90 mcg/actua tion aerosol inhaler INHALE TWO PUFFS EVERY 4 HOURS NEEDED FOR COUGH OR FOR WHEEZING active Not Available Not Available No t Available duloxetin e 30 mg capsule,d elayed release TAKE ONE CAPSULE TWICE DAILY IN THE MORNING AND afternoo n 04/25 completed Not Available Not Available Not Available pregabali n 150 mg capsule TAKE ONE CAPSULE DAILY FOR ONE WEEK THEN TAKE ONE CAPSULE TWICE DAILY DIRECTED 04/25 completed Not Available Not Available Not Available pregabali n 225 mg capsule TAKE ONE CAPSULE TWICE DAILY active Not Available Not Available No t Available chlorhexi dine gluconate 0.12 % mouthwash PLEASE SEE ATTACHED FOR DETAILED DIRECTIO NS 04/25 completed Not Available Not Available Not Available Flovent Diskus 50 mcg/actua tion powder for inhalatio n 02/22 completed Medicati on ID: [id number] P marlyribe d By Name: Heydi Mann nd Name: Flonase Send Method: E-Prescr ibed Sub s Allowed: subs OK Speci al Instruct ion: 2 spray each nostril BID Medi cationGe nericNam e: Flonase Not Available Not Available Not Available Eye Itch Relief 0.025 % (0.035 %) drops PLACE ONE DROP IN EACH EYE TWICE DAILY NEEDED active Not Available Not Available No t Available cholecalc iferol (vitamin D3) 50 mcg (2,000 unit) tablet TAKE ONE TABLET DAILY active Not Available Not Available No t Available Astepro 205.5 mcg (0.15 %) nasal spray 11/16 completed Medicati on ID: [id number] Pr escribed By Name: Heydi Mcgraw rd, nd Name: Astepro Send Method: E-Prescr ibed Sub s Allowed: subs OK Speci al Instruct ion: 2 sprays intranas al bid Medi cationGe nericNam e: Astepro Not Available Not Available Not Available Flonase Allergy Relief 50 mcg/actua tion nasal spray,evaristo pension 2 puff into both nostrils 2019 active Medicati on ID: [id number] D uration Value: 30 Prescri bed By Name: RUBI Chery nd Name: Flonase Allergy Relief S end Method: E-Prescr ibed Sub s Allowed: subs OK Medic ationGen ericName : Flonase Allergy Relief Not Available Not Available Not Available duloxetin e 40 mg capsule,d elayed release TAKE ONE CAPSULE IN THE MORNING AND EVENING 04/25 completed Not Available Not Available Not Available Trulance 3 mg tablet TAKE 1 TABLET BY MOUTH EVERY DAY active Not Available Not Available No t Available Trelegy Ellipta 100 mcg-62.5 mcg-25 mcg powder for inhalatio n INHALE 1 PUFF DAILY AT THE SAME TIME EACH DAY 04/25 completed Not Available Not Available Not Available Fasenra Pen 30 mg/mL subcutane ous auto-inje ctor 04/25 completed Not Available Not Available Not Available Dupixent 300 mg/2 mL subcutane ous pen injector active Not Available Not Available Not Available Breztri Aerospher e 160 mcg-9mcg- 4.8mcg/ac tuation HFA aerosol inhaler INHALE 2 PUFFS INTO THE LUNGS 2 TIMES DAILY FOR 30 DAYS. active Not Available Not Available No t Available Zepbound 5 mg/0.5 mL subcutane ous pen injector 0.5 ML SUBCUTAN EOUSLY ONE TIME PER WEEK active Not Available Not Available No t Available Zepbound 2.5 mg/0.5 mL subcutane ous pen injector INJECT 2.5 MG SUBCUTAN EOUS ONCE WEEKLY 30 DAYS 04/25 completed Not Available Not Available Not Available Vitals None Recorded Social History None recorded. Functional Status None recorded. Mental Status None recorded. Family History Nothing Reported. Medical History Condition Response Anxiety Y Migraines Y Depression Y Arthritis Y Asthma Y Hypertension Y Gynecological HistoryNo gynecological history recorded. Obstetrics History GPAL:G 0 P 0 0 0 0 Past Encounters Encounter ID Performer Location Encounter Start Date Encounter Closed Date Diagnosis/Indication Diagnosis SNOMED-CT Code Diagnosis ICD10 Code Diagnosis Note [id number] GRISELDA MICHAELS MD [facility] [address] [address] 04/25/2024 09:11:31 04/25/2024 10:34:58 Bilateral tinnitus 7834679201 102 H93.13 Sensorineu ral hearing loss of bilateral ears 914760754 H90.3 Audiologic al evaluation results: Right ear: {{Normal N ormal through 2 kHz* Mild Moderate M oderately- severe Sev ere Profou nd}} {{hearing sloping to a mild slopi ng to a moderate* sloping to moderately severe slo ping to severe slo ping to profound f lat high frequency low frequency mid frequency cookie bite huynh curve}} {{with sen sorineural hearing loss with* cond uctive hearing loss with mixed hearing loss with}} {{excellen t* good fa ir poor no measurable }} word recognitio n. Left ear: {{Normal N ormal through 2 kHz Mild M oderate Mo derately-s evere Alejandra re Profoun d Normal through 3 kHz#}} {{hearing sloping to a mild slopi ng to a moderate* sloping to moderately severe slo ping to severe slo ping to profound f lat high frequency low frequency mid frequency cookie bite huynh curve}} {{with sen sorineural hearing loss with* cond uctive hearing loss with mixed hearing loss with}} {{excellen t* good fa ir poor no measurable }} word recognitio n. Tympanomet ry: Right Ear:{{Type A* Type As Type Ad Type C Type C, shallow & rounded Ty pe B Type B with large volume Cou ld not maintain a hermetic seal}} Left Ear:{{Type A* Type As Type Ad Type C Type C, shallow & rounded Ty pe B Type B with large volume Cou ld not maintain a hermetic seal}} Chronic sinusitis 862234 00 J32.9 Moderate p ersistent asthma 606208074 J45.40 Health Concerns Section Related Observation LastModified by Organization Detai ls LastModified Time None Recorded Concern Status LastModified by Organization Details LastModified Time None Recorded Advance Directives Directive None Recorded Payers Encounter Date Sequence Insurance Name Policy Number Policy Redman Covered Member ID Redman Member ID Guarantor Name 04/25/2024 1 GRIS: MOISÉS (PPO) [id number] Edwin Li [id number] Kristy Li Notes Date Note Type Note Provider Name and Address Organization Details Recorded Time 04/25/2024 text/html Patient with kno wn hearing loss presents for follow-up. She feels her hearing has gotten a little worse and she has bilateral tinnitus. Reports being diagnosed with a couple of ear infections in the last year. She has also been diagnosed with fibromyalgia. Dentist noted TMJ and suggested PTHas some sinus congestion. She is on montelukast, triamcinolone and Dupixent for asthma. GRISELDA MURDOCK MD [address] [place] [address], [phone], [facility] - [facility] 04/25/2024 10:32:04 OBGyn Episode No OBEpisode recorded.
--- OUTSIDE RECORDS SUMMARY | 2024-10-30 15:27 | XMS_ITS | Encounter Summary ---
Author Organization [employer] Address [address] [place] [address] Care Team Providers Care Textiles Sales Representative Name Role Phone Unavailable Primary Care Provider Unavailabl e Reason for Visit * Reason Onset Date Comments walking in 12/19/2023 Encounter Details Date Type Department Care Team (Late st Contact Info) Description 12/19/2023 Telephone [facility] [address] [place] [address] Lopez Gill BDS [address] [place], [place] [phone] walking in Social History Tobacco Use Types Packs/Day Years Used Date Smoking Tobacco: Never Smokeless Tobacco: Never Alcohol Use Standard Drinks/Week Comments Defer 0 (1 standard drink = 0.6 oz pur e alcohol) Comments Unknown Sex and Gender Information Value Date Recorded Sex Assigned at Female 04/26/2022 10:17 AM EDT Legal Sex Female 10:17 AM EDT Gender Identity Female 04/26/2022 10:17 AM EDT Sexual Orientation Straight 04/26/2022 10 :17 AM EDT documented as of this encounter Miscellaneous Notes * Telephone Encounter - Lore Ordaz - 12/19/2023 12:47 PM EDT Contacted [facility] and desk operator informed if patient is looking to be seen sooner due to pain in tooth that she is scheduled for eval on 01/01, she is able to come in at either 8 or 1 as walk in but mustbe willing to wait. Patient said she will do that and go from there. She understands that as of nowthat does not bypass her 01/[address] documented in this encounter Plan of Treatment Not on file documented as of this encounter Visit Diagnoses Not on filedocumented in this encounter
--- OUTSIDE RECORDS SUMMARY | 2024-10-30 15:27 | XMS_ITS | Encounter Summary ---
Author Organization [employer] [facility] Address [address] [facility] [address] [place] [address] Care Team Providers Care Auto Body Customizer Name Role Phone Unavailable Primary Care Provider Unavailabl e Reason for Visit * Reason Comments Med Refill Encounter Details Date Type Department Care Team (Late st Contact Info) Description 05/31/2024 Refill [facility] [address] [place] [address] Chet Wade DDS [address] [place] [address] Social History Tobacco Use Types Packs/Day Years [...] encounter Miscellaneous Notes * Telephone Encounter - Chet Wade DDS - 05/31/2024 3:46 PM EST Approving, but needs appt for additional refills. documented in this encounter Plan of Treatment Not on file documented as of this encounter Visit Diagnoses Not on filedocumented in this encounter
--- OUTSIDE RECORDS SUMMARY | 2024-10-30 15:27 | XMS_ITS | Encounter Summary ---
Author Organization [employer] Address [address] [facility] [address] [place] [address] Care Team Providers Care Soloist Dancer Name Role Phone Unavailable Primary Care Provider Unavailabl e Reason for Visit * Reason Comments Med Refill Encounter Details Date Type Department Care Team (Late st Contact Info) Description 04/10/2024 Refill [facility] [address] [place] [address] Chet Wade DDS [address] [place] [address] Social History Tobacco Use Types Packs/Day Years [...] AM EDT documented as of this encounter Plan of Treatment Not on file documented as of this encounter Visit Diagnoses Not on filedocumented in this encounter
--- OUTSIDE RECORDS SUMMARY | 2024-10-30 15:27 | XMS_ITS | Encounter Summary ---
Author Organization [facility] Address [address] [place] [address] Care Team Providers Care Web Assistant Name Role Phone Tanja Larkin MD Primary Care Provider [phone] Reason for Referral * Imaging (Routine) - Pending Review Specialty Diagnoses / Procedures Referred By Contac t Referred To Contact Radiology Diagnoses Postmenopausal state Procedures BD Bone Density DXA Axial Skeleton Tanja Larkin MD [address] [address] Phone: tel: fax: [address] [address] Phone: tel: Referral ID Status Reason Start Date Expiration Date V isits Requested Visits Authorized [id number] Pending Review 10/02/2024 10/02/2025 1 1 Reason for Visit * Reason Onset Date Comments [place]: Bone density 10/01/2024 Encounter Details Date Type Department Care Team (Late st Contact Info) Description 10/01/2024 Telephone Internal Medicine - [place] [address] [address] Tanja Larkin MD [address] [address] [place]: Bone density Social History Tobacco Use Types Packs/Day Years Used Date Smoking Tobacco: Never Smokeless Tobacco: Never Alcohol Use Standard Drinks/Week Comments Not Currently 0 (1 standard drink = 0.6 oz pur e alcohol) Housing Instability Answer Date Recorde d Are you worried that in the next 2 months you may not have stable housing? Patient declined 06/11/2024 Food Access & Nutrition Answer Date Rec orded Do you have access to a vari ety of food including fruits and vegetables? Patient declined 06/11/2024 Access to Healthcare Answer Date Record ed Within the last 3 months, ho w many times did you visit the emergency department for your medical care? 0 06/11/2024 Health Literacy Answer Date Recorded How often do you need to hav e someone help you when you read instructions, pamphlets, or other written material from your doctor or pharmacy? Sometimes 06/11/2024 Caregiver: How often do you need to have someone help you when you read instructions, pamphlets, or other written material from your doctor or pharmacy? Not on file 06/11/2024 Financial Risk Answer Date Recorded How hard is it for you to pa y for the very basics like food, housing, medical care, and air conditioning / heating? Patient declined 06/11/2024 Transportation Answer Date Recorded Has the lack of transportati on kept you from meetings, work, or from getting things needed for daily living? Patient declined 06/11/2024 Has the lack of transportati on kept you from medical appointments or from getting medications? Patient declined 06/11/2024 Social Isolation Answer Date Recorded How often do you feel lonely or isolated from those around you? Sometimes 06/11/2024 Food Risk Answer Date Recorded Within the past 12 months we worried whether our food would run out before we got money to buy more. Patient declined 024 Within the past 12 months th e food we bought just didn't last and we didn't have money to get more. Patient declined 05/27 Dependent Care Answer Date Recorded Do you need help finding or paying for care for your loved ones. For example, child care specialist or elderly care for an older adult? No 06/11/2024 Education Answer Date Recorded Do you think completing more education or training, like finishing a GED, going to college, or learning a trade, would be helpful for you? Patient declined 06/11/2024 Employment and Income Answer Date Recor ded During the last four weeks, have you been actively looking for work? No 06/11/2024 Living Situation Answer Date Recorded What is your living situation? 1 08/12/2023 Interpersonal Safety Answer Date Record ed Physical Abuse 07/24/2024 Verbal Abuse 07/24/2024 Comments Unknown Sex and Gender Information Value Date Recorded Sex Assigned at Female 05/01/2024 8:39 AM EST Legal Sex Female 5:29 PM EST Gender Identity Female 05/01/2024 8:39 AM EST Sexual Orientation Straight 08/21/2024 5: 33 PM EST documented as of this encounter Functional Status * Are you deaf or do you have serious difficulty hearing? Answer Date of Assessment Author No 08/21/2024 5:40 PM Kizzy Hernandez RN * Are you blind or do you have serious difficulty seeing, even when wearing glasses? Answer Date of Assessment Author No 08/21/2024 5:40 PM Kizzy Hernandez RN * Do you have serious difficulty walking or climbing stairs? Answer Date of Assessment Author No 08/21/2024 5:40 PM Kizzy Hernandez RN * Do you have serious difficulty dressing or bathing? Answer Date of Assessment Author No 08/21/2024 5:40 PM Kizzy Hernandez RN * Because of a physical, mental, or emotional condition, do you have serious difficulty doing errandsalone such as visiting the doctor? Answer Date of Assessment Author No 08/21/2024 5:40 PM Kizzy Hernandez RN documented as of this encounter Mental Status * Because of a physical, mental, or emotional condition, do you have serious difficulty concentrating, remembering, or making decisions? (5 years old or older) Answer Entry Date Author No 08/21/2024 5:40 PM Kizzy Hernandez RN documented in this encounter Progress Notes * Tanja Larkin MD - 10/02/2024 12:47 PM EDT ordered * Jenni Russo MA - 10/01/2024 2:27 PM EDT Please advise * Fariba Digna - 10/01/2024 2:14 PM EDT Patient called and requested a bone density test because she is having joint pains and she has osteoarthritis and would like to know how bad it is. Please advise Cb# [phone] documented in this encounter Plan of Treatment Upcoming Encounters Date Type Department Care Team (Late st Contact Info) Description 11/07/2024 8:30 AM EDT Hospital Encounter [facility] Endoscopy [address] [place] [address] Danica Park MD [address] [address] 11/08/2024 8:30 AM EDT Appointment [facility] Bone Density [address] [place] [address] 11/16/2024 11:15 AM EDT Office Visit Internal Medicine - [place] [address] [phone] Tanja Larkin MD [address] [phone] 11/20/2024 11:00 AM EDT [facility]ointment [facility] [address] [place] [address] 02/11/2025 9:30 AM EDT Office Visit Pulmonolgy - [place] [address] [phone] Abhay Coppola MD [address] [address] 03/04/2025 9:10 AM EDT Office Visit Gastroenterology - [place] [address] [place] [phone] Daphnie Almanza PA [address] [place] [address] Scheduled Orders Name Type Priority Associated Diagnoses Orde r Schedule BD Bone Density DXA Axial Skeleton Imaging Routine Postmenopausal state 1 Occurrences starting 10/02/2024 until 10/02/2025 documented as of this encounter Visit Diagnoses Diagnosis Postmenopausal state- Primary Asymptomatic postmenopausal status (age-related) (natural) Encounter for screening mammogram for breast cancer documented in this encounter Additional Health Concerns Assessment Noted Time PHQ-9 Depression Total Score: 19 08/29/ 025 3:44 PM EST documented as of this encounter Care Teams Web Assistant Relationship Specialty Start Date End Date Tanja Larkin MD 175 [facility] [address] [place] [phone] PCP - General Internal Medicine 05/04/24 documented as of this encounter
--- OUTSIDE RECORDS SUMMARY | 2024-10-30 15:27 | XMS_ITS | Encounter Summary ---
Author Organization [facility] Address [address] [place] [address] [address] [place] [address] Care Team Providers Care Design And Sales Consultant Name Role Phone Unavailable Primary Care Provider Unavailabl e Reason for Visit * Reason Onset Date Comments Extraction 03/22/2024 Encounter Details Date Type Department Care Team (Late st Contact Info) Description 03/22/2024 Telephone [facility] [address] [place] [address] Lopez Gill BDS [address] [place] [address] Extraction Social History Tobacco Use Types Packs/Day Years [...] * Telephone Encounter - Lore Ordaz - 03/22/2024 2:07 PM EDT Patient returned call to schedule appt. Pls return call to patient DR documented in this encounter Plan of Treatment Not on file documented as of this encounter Visit Diagnoses Not on filedocumented in this encounter
--- OUTSIDE RECORDS SUMMARY | 2024-10-30 15:27 | XMS_ITS | Encounter Summary ---
Author Organization [facility] Address [address] [place] [address] Care Team Providers Care Director Global Strategic Publisher Sales Name Role Phone Sudarshan Hdz MD Primary Care Provide r Encounter Details Date Type Department Care Team (Latest Contact Info) Description 04/14/2021 Abstract [facility] Dental, Provider, DDS Social History Tobacco Use Types Packs/Day Years Used Date Smoking Tobacco: Never Assessed Comments Unknown Sex and Gender Information Value Date Recorded Sex Assigned at Female 04/26/2022 10:17 AM EDT Legal Sex Female 10:17 AM EDT Gender Identity Female 04/26/2022 10:17 AM EDT Sexual Orientation Straight 04/26/2022 10 :17 AM EDT documented as of this encounter Plan of Treatment Not on file documented as of this encounter Visit Diagnoses Not on filedocumented in this encounter Care Teams Director Global Strategic Publisher Sales Relationship Specialty Start Date End Date Sudarshan Hdz MD [address] [place] [id number] PCP - General Internal Medicine 11/27/19 06/30/23 documented as of this encounter
--- OUTSIDE RECORDS SUMMARY | 2024-10-30 15:27 | XMS_ITS | Clinical Summary ---
Author Organization [employer] [employer] Address [address] [facility] [address] [place] [address] Care Team Providers Care Family Services Assistant Name Role Phone Unavailable Primary Care Provider Unavailabl e Allergies Active Allergy Reactions Criticality Noted Date Comments Acetaminophen Nausea Only 03/23/2021 Aspirin 02/10/2015 Other reaction(s): Gastritis GI Upset Codeine 03/23/2021 Other reaction(s): Vomiting GI Upset Lidocaine 08/30/2017 Severe vomiting Nsaids 05/01/2020 GI Upset Oxycodone-Acetaminophen Nausea And Vomiting 04/2011 Medications albuterol (ProAir HFA) 108 (90 Base) MCG/ACT inhaler Inhale. 1 Active biotin 1 MG capsule Take by mouth. 1 Active albuterol (2.5 MG/3ML) 0.083% nebulizer solution Inhale 2.5 mg. 2 Active gabapentin (Neurontin) 600 MG tablet Take 1 tablet by mouth in the morning, at noon, and at bedtime. 2 Active meclizine (Antivert) 25 MG tablet TAKE ONE TABLET EVERY 8 HOURS NEEDED 2 Active LORazepam (Ativan) 0.5 MG tablet Take 2 tablets by mouth every 8 (eight) hours. Active methocarbamol (Robaxin) 750 MG tablet Take 750 mg by mouth if needed in the morning, at noon, and at bedtime. 2 Active montelukast (Singulair) 10 MG tablet Take 10 mg by mouth at bedtime. 2 Active oxybutynin XL (Ditropan-XL) 10 MG 24 hr tablet Take 10 mg by mouth at bedtime. 2 Active ondansetron (Zofran) 4 MG tablet Take 4 mg by mouth in the morning. 2 Active senna (Senokot) 8.6 MG tablet TAKE ONE TABLET BY MOUTH THREE TIMES DAILY NEEDED FOR CONSTIPATION 2 Active triamcinolone (Nasacort) 55 MCG/ACT nasal inhaler INHALE TWO SPRAYS IN EACH NOSTRIL DAILY 2 Active amoxicillin-cla vulanate (Augmentin) 500-125 MG tablet Take 1 tablet (500 mg) by mouth 3 times daily. 30 tablet 4 Active Additional Information Patient not taking.Reported on 04/13/2024 atorvastatin (Lipitor) 20 MG tablet TAKE ONE TABLET DAILY Oral for 90 Days 4 Active benralizumab (Fasenra) 30 MG/ML injection Inject under the skin. Active Breztri Aerosphere 160-9-4.8 MCG/ACT aerosol 4 Active Cymbalta [address] capsule 1 capsule in the morning. Active fluconazole (Diflucan) 200 MG tablet TAKE ONE TABLET ONCE DAILY FOR 21 DAYS 4 Active hydrOXYzine HCl (Atarax) 25 MG tablet TAKE ONE TABLET TWICE DAILY NEEDED FOR ANXIETY 4 Active ipratropium (Atrovent) 0.06 % nasal spray Administer 2 sprays into affected nostril(s) 4 times daily. Active pantoprazole (ProtoNix) 40 MG EC tablet TAKE ONE TABLET EVERY DAY Oral for 90 Days Active potassium chloride ER (Micro-K) 10 MEQ ER capsule TAKE ONE CAPSULE TWICE DAILY Oral for 30 Days 4 Active sulfamethoxazol e-trimethoprim (Bactrim DS) 800-160 MG tablet Oral for 7 Days 4 Active Tirzepatide-Paxton ght Management 2.5 MG/0.5ML solution auto-injector Inject 2.5 Syringes under the skin 1 (one) time per week. Active sucralfate (Carafate) 1 g tablet TAKE ONE TABLET FOUR TIMES DAILY Active nystatin (Mycostatin) 443349 UNIT/ML suspension Take 4 mL by mouth 3 times daily. 4 Active traZODone (Desyrel) 50 MG tablet TAKE 1/2 TO 1 TABLET EVERY NIGHT AT BEDTIME NEEDED FOR SLEEP Oral for 30 Days Active chlorhexidine (Peridex) 0.12 % solution SWISH 15 ML MORNING AND NIGHT FOR 1 MINUTE. SPIT, DO NOT SWALLOW. DO NOT EAT OR DRINK FOR 30 MINUTES FOLLOWING USE. 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 Encounters Date Type Department Care Team Description 09/14/2024 Telephone [facility] AD[facility] D[facility] [address] [place] [address] Mert Giang referral for Oral Surgery from Last 3 Months Immunizations Name Administration Dates Next Due Influenza, Injectable, MDCK, preservative free 0 03/15/2024 Social History Tobacco Use Types Packs/Day Years Used Date Smoking Tobacco: Never Smokeless Tobacco: Never Tobacco Cessation:Counseling Given: Not Answered Alcohol Use Standard Drinks/Week Comments Defer 0 (1 standard drink = 0.6 oz pur e alcohol) Comments Unknown Sex and Gender Information Value Date Recorded Sex Assigned at Female 04/26/2022 10:17 AM EDT Legal Sex Female 10:17 AM EDT Gender Identity Female 04/26/2022 10:17 AM EDT Sexual Orientation Straight 04/26/2022 10 :17 AM EDT Last Filed Vital Signs Vital Sign Reading Time Taken Comments Blood Pressure 124/82 04/13/2024 9:03 AM EDT Pulse 60 04/13/2024 9:03 AM EDT Temperature - - Respiratory Rate - - Oxygen Saturation - - Inhaled Oxygen Concentration - - Weight - - Height - - Body Mass Index - - Plan of Treatment Health Maintenance Due Date Last Done Comments CT Colonography 1969 Colonoscopy 1969 Colorectal Cancer Screening 1969 Depression Screening 1969 FIT DNA/Cologuard 1969 FIT 1969 FOBT 1969 HIV Screening 1969 Lipid Panel 1969 SDOH Screening 1969 Sigmoidoscopy 1969 Alcohol/Substance Use Screening 1981 Hepatitis C Screening 1987 Pap Smear 1990 Cervical Cancer Screening 1999 HPV/Cotest 1999 Mammogram 2009 Pneumococcal Vaccine: 50+ Years (2 of 2 - PCV) 10/26/2018 10/26/2017 Dental Oral Exam 12/17/2022 06/17/2022 COVID-19 Vaccine ( season) 2024 03/22/2023, 05/09/2022, 09/29/2021, Additional history exists Dental Prophylaxis 10/13/2024 04/13/2024, 06/17/2022 Dental X-Ray: Bitewings 04/14/2025 04/13/2024, 06/17 Tobacco Screening 04/20/2025 04/20/2024 DTaP/Tdap/Td Vaccines (3 - Td or Tdap) 05/25/2025 05/25/2015, 01/28/2010 Dental X-Ray: Full Mouth 04/14/2027 04/13/2024 RSV Patients and Patients Aged 60 years or older (1 - 1-dose 75+ series) 02/04/2044 Hepatitis B Vaccines Completed 11/07/2013, 06/13/2013, 05/09/2013 Zoster Vaccines Completed 05/20/2023, 03/20/2023 Influenza Vaccine Completed 03/15/2024, , 03/02/2022, Additional history exists HIB Vaccines Aged Out No longer eligi ble based on patient's age to complete this topic HPV Vaccines Aged Out No longer eligi ble based on patient's age to complete this topic Hepatitis A Vaccines Aged Out No long er eligible based on patient's age to complete this topic IPV Vaccines Aged Out No longer eligi ble based on patient's age to complete this topic Meningococcal Vaccine Aged Out No chidi nicolasa eligible based on patient's age to complete this topic RSV under 20 months Aged Out No longe r eligible based on patient's age to complete this topic Rotavirus Vaccines Aged Out No longer eligible based on patient's age to complete this topic Procedures Procedure Name Priority Date/Time Associated Diagnosis Comments PROPHYLAXIS - ADULT Routine 04/13/2024 9 :00 AM EDT INTRAORAL - COMPLETE SERIES OF RADIOGRAPHIC IMAGES Routine 04/13/2024 9:00 AM EDT PERIODIC ORAL EVALUATION - ESTABLISHED PATIENT Routine 06/17/2022 2:00 PM EST from Last 3 Months or Most Recently Relevant to Health Maintenance Insurance [facility]
--- OUTSIDE RECORDS SUMMARY | 2024-10-30 15:27 | XMS_ITS | Clinical Summary ---
Author Organization [facility] Address [address] [place] [phone] Phone Care Team Providers Care Machine Learning Intern Name Role Phone Tanja Larkin MD Primary Care Provider [phone] Allergies Active Allergy Reactions Criticality Noted Date Comments Acetaminophen Nausea Only 03/23/2021 Aspirin GI intolerance 02/10/2015 Codeine Other 03/23/2021 Other reaction(s): Vomiting GI Upset GI Upset Ibuprofen Other 07/16/2024 Nsaids (Non-Steroidal Anti-Inflammatory Drug) 05/01/2020 Worsening reflux Other 02/16/2019 Seasonal Allergies Oxycodone Nausea And Vomiting 07/16/2024 Oxycodone-Acetaminophen Nausea And Vomiting 04/2011 Promethazine-Codeine 06/16/2012 Blood pressure drop ,diaphoreses, Medications cetirizine (ZyrTEC) 10 mg tablet Take 1 tablet (10 mg total) by mouth 2 (two) times a day. Active ipratropium (ATROVENT) 42 mcg (0.06 %) nasal spray Administer 2 sprays into affected nostril(s) 4 (four) times a day. Active meclizine (ANTIVERT) 25 mg tablet Take 1 tablet (25 mg total) by mouth every 8 (eight) hours if needed. Active montelukast (SINGULAIR) 10 mg tablet Take 1 tablet (10 mg total) by mouth. Active ondansetron (ZOFRAN) 4 mg tablet Take 1 tablet (4 mg total) by mouth every 8 (eight) hours if needed for nausea. for up to 30 days. Active triamcinolone (Nasal Allergy) 55 mcg nasal inhaler 2 sprays 1 (one) time each day. INTRANASALLY Active BIOTIN ORAL Take 3 tablets by mouth 1 (one) time each day. Biotin 5000 MCG Tab Active CHOLECALCIFERO L, VITAMIN D3, ORAL Take 1 tablet by mouth 1 (one) time each day. Cholecalciferol (Vitamin D) 50 MCG (2000 UT) Tab Active hydroCHLOROthi azide (MICROZIDE) 12.5 mg capsule TAKE ONE CAPSULE DAILY 30 capsule 5 Active Dupixent Pen 300 mg/2 mL pen Inject 1 Syringe under the skin. Active pantoprazole (PROTONIX) 40 mg EC tablet Take 1 tablet (40 mg total) by mouth 2 (two) times a day. for 360 days. 180 each 3 024 2024 Active plecanatide (TRULANCE) 3 mg tablet Take 1 tablet (3 mg total) by mouth 1 (one) time each day. 90 tablet 3 Active sucralfate (CARAFATE) 1 gram tablet Take 1 tablet (1 g total) by mouth 4 (four) times a day. 360 tablet 3 Active polyethylene glycol (Golytely) 236-22.74-6.74 -5.86 gram solution Take 4L by mouth once for one dose. May substitue any PEG. Starting at 6PM the night before your procedure drink 1 8oz glasses at your own pace until you complete half of the gallon. Finish 2nd half of the gallon 5 hours before your procedure. 4000 mL Active bisacodyL (DULCOLAX) 5 mg EC tablet Take 2 tablets by mouth right before beginning bowel prep. See instructions provided by the office 2 tablet Active atorvastatin (LIPITOR) 20 mg tablet Take 1 tablet (20 mg total) by mouth 1 (one) time each day. Active pregabalin (LYRICA) 225 mg capsule Take 1 capsule (225 mg total) by mouth 2 (two) times a day. Active DULoxetine (CYMBALTA) [address] capsule TAKE ONE CAPSULE IN THE MORNING AND EVENING Active Fasenra Pen 30 mg/mL auto-injector injection Active traZODone (DESYREL) 50 mg tablet TAKE 1/2 TO 1 TABLET AT BEDTIME NEEDED FOR SLEEP Active Zepbound 5 mg/0.5 mL injection 0.5 ML SUBCUTANEOUSLY ONE TIME PER WEEK Active methocarbamoL (ROBAXIN) 750 mg tablet TAKE ONE TABLET THREE TIMES DAILY NEEDED FOR PAIN Active hydrOXYzine HCL (ATARAX) 25 mg tablet TAKE ONE TABLET TWICE DAILY NEEDED FOR ANXIETY Active budesonide-gly copyr-formoter ol (BREZTRI AEROSPHERE) 160-9-4.8 mcg/actuation HFA aerosol inhaler inhaler INHALE 2 PUFFS INTO THE LUNGS 2 TIMES DAILY FOR 30 DAYS. Active lactobacillus combination no.4 (Probiotic) 3 billion cell capsule Take by mouth 2 (two) times a day. Active cyanocobalamin (VITAMIN B-12) 1,000 mcg tablet Take 3 tablets (3,000 mcg total) by mouth 2 (two) times a day. Active multivit-min/f errous fumarate (MULTI VITAMIN ORAL) 0 Refills, Maintenance, 08/27/20 13:37:00 EST, Partial fill upon patient request if the prescription is for a schedule II opioid drug. Active NON FORMULARY Ortho digestsyme Active doxycycline (VIBRAMYCIN) 100 mg capsule Take 1 capsule (100 mg total) by mouth 2 (two) times a day. Active albuterol 2.5 mg /3 mL (0.083 %) nebulizer solution Take 3 mL (2.5 mg total) by nebulization every 6 (six) hours if needed for wheezing. 300 mL 11 025 2025 Active albuterol 2.5 mg /3 mL (0.083 %) nebulizer solution USE ONE AMPULE USING A NEBULIZER EVERY 4 HOURS NEEDED FOR WHEEZING OR SHORTNESS OF BREATH 180 mL Active pseudoephedrin e (SUDAFED) 60 mg tablet Take 1 tablet (60 mg total) by mouth every 6 (six) hours if needed for congestion for up to 14 doses. 14 tablet 025 Active Ventolin HFA 90 mcg/actuation inhaler INHALE TWO PUFFS EVERY 4 HOURS NEEDED FOR COUGH OR FOR WHEEZING 18 g 2 025 Active Ventolin HFA 90 mcg/actuation inhaler INHALE TWO PUFFS EVERY 4 HOURS NEEDED FOR COUGH OR FOR WHEEZING 18 g 2 025 2024 Discontinued Active Problems Problem Noted Date Diagnosed Date Class 1 obesity with body ma ss index (BMI) of 30.0 to 30.9 in adult 05/29/2024 Seasonal allergies 03/28/2024 Hypertension 09/28/2023 Overview (03/28/2024): Last Assessment & Plan: Blood pressure is mildly elevated. I will start low-dose hydrochlorothiazide. Biliary dyskinesia 07/25/2023 Fibromyalgia 03/02/2022 Anxiety and depression 06/09/2021 Grief 06/09/2021 Esophageal dysmotility 05/13/2021 Overview (03/28/2024): Mild to moderate. Barium swallow 05/04/2021. Dr. Johnson. HLD (hyperlipidemia) 03/15/2021 Overview (03/28/2024): Last Assessment & Plan: Well-controlled. Chest pain 08/14/2020 Overview (03/28/2024): Last Assessment & Plan: Chest discomfort is atypical. Giving her risk factors, will arrange exercise EKG stress test. Also assess her functional capacity and shortness of breath symptoms. Heart murmur 08/14/2020 Overview (03/28/2024): Last Assessment & Plan: Her heart murmur is from a slightly increased LVOT velocity. When she is dehydrated, the murmur will be audible. I discussed with her that she needs to reduce caffeinated beverages intake and drinking adequate water. Shortness of breath 08/14/2020 Overview (03/28/2024): Last Assessment & Plan: Been more or less similar. Will arrange exercise echocardiogram stress test. Mild persistent asthma without complication 09/25 RAMOS (obstructive sleep apnea) 10/13/2017 Overview (03/28/2024): [facility] Home Sleep Apnea Test: Date 11/22/2018; Wt 143#; BMI 28; BRISA 8, AI 1; HI 8; Unclassified apneas 1; Obstructive apneas 1; Central apneas 1; Mixed apneas 0; hypopneas 49; average oxygen saturation 94% (lowest 76% without saturations <88% for 5% or more of study) - Obstructive Sleep Apnea - mild; mostly hypopneas; without sleep related hypoventilation by 2019 home polysomnogram. Cervical radiculitis 02/01/2017 Solitary pulmonary nodule 06/15/2013 Pulmonary granuloma (CMS/HCC V24, CMS/HCC V28) 1 Radiculitis, lumbosacral 09/23/2010 GERD (gastroesophageal reflux disease) 0 Encounters Date Type Department Care Team Description 10/29/[address] [facility] - [facility] Lab [address] [facility] [place] [address] Yenni aSndoval MD Encounter for gynecological examination (general) (routine) without abnormal findings 10/05/2024 Telephone Pulmonolgy [facility] [address] [phone] Abhay Coppola MD durable medical equipment 10/01/2024 Telephone Internal Medicine [facility] [address] [phone] Tanja Larkin MD [place]: Bone density 09/13/2024 Telephone Internal Medicine [facility] [address] [phone] Tanja Larkin MD Referral 08/31/2024 8:45 AM EST Office Visit Internal Medicine [address] [phone] Arash Vee MD Tongue lesion (Primary Dx) 08/30/2024 Telephone Pulmonolgy [facility] [address] [phone] Abhay Coppola MD 08/27/2024 10:15 AM EST [facility] [address] [phone] Abhay Coppola MD Lower respiratory infection (Primary Dx); Moderate persistent asthma, unspecified whether complicated; RAMOS (obstructive sleep apnea) 08/27/2024 9:50 AM EST Office Visit Gastroenterology [address] [phone] Daphnie Almanza PA Gastroesophageal reflux disease without esophagitis (Primary Dx); Esophageal dysmotility; Pharyngeal dysphagia; Chronic constipation 08/27/[address] [phone] Daphnie Almanza PA 08/21/2024 5:16 PM EST - 08/22/2024 12:56 AM EST Emergency [facility] Emergency [address] [place] [address] Chronic cough (Primary Dx) Discharge Disposition: Home or Self Care 08/06/2024 9:30 AM EST Office Visit Pulmon[address] [phone] Abhay Coppola MD RAMOS (obstructive sleep apnea) (Primary Dx); Moderate persistent asthma, unspecified whether complicated 08/06/[address] [phone] Alma Alvarado MA DME request from Last 3 Months Immunizations Name Administration Dates Next Due Hepatitis B (Sdkjxbc-P-Qxixa , Recombivax HB-Adult) 19yo and older 11/07/2013,06/13/2013,05/09/2013 Influenza Quadravalent, MDCK , 0.5ml, preservative free (Flucelvax) 6mo and older 03/02/2022,04/24/2021,03/12/2018 Influenza trivalent, with pr eservative (Fluzone; Afluria) 6mo and older 03/25/2015,03/31/2014,03/12/2013,03/27,03/09/2010 Moderna SARS-CoV-2 COVID-19, mRNA, LNP-S, preservative free 10/08/2021 PPD Test 07/04/2019, 5,05/28/2014,05/16 Pneumococcal polysaccharide 23 valent (Pneumovax 23) 2yo and older 10/26/2017 Tdap Tetanus diptheria acell ular pertussis (Boostrix; Adacel) 7yo and older 05/30/2015,01/28/2010 Surgical History Surgery Date Site/Laterality Comments CARPAL TUNNEL RELEASE PROCEDURE: HISTORICAL CARPAL TUNNEL REL; COMMENT: Bilateral OTHER SURGICAL HISTORY PROCEDURE: ---- OTHER ----; COMMENT: cyst removal from spine a few mths VAGINOSCOPY PROCEDURE: VA COLPOSCOPY CERVIX VAG LOOP ELTRD BX CERVIX; COMMENT: hx of abnormal pap smear EYE SURGERY PROCEDURE: VA TRABECULOPLASTY BY LASER SURGERY; COMMENT: SENG Tompkins b/marisa ESOPHAGOGASTRODUODENOSCOPY 06/16/2012 PROCEDURE: VA ESOPHAGOGASTRODUODENOSCOPY TRANSORAL DIAGNOSTIC; COMMENT: normal ESOPHAGOGASTRODUODENOSCOPY 09/2018 PROCEDURE: VA ESOPHAGOGASTRODUODENOSCOPY TRANSORAL DIAGNOSTIC KNEE SURGERY 08/2020 Right PROCEDURE: HISTORICAL KNEE SURGERY; COMMENT: arthroscopic CHOLECYSTECTOMY PROCEDURE: VA LAPAROSCOPY SURG CHOLECYSTECTOMY Medical History Medical History Date Comments Seasonal allergies DX:Seasonal a llergies Lumbago DX:Lumbago Cervicalgia DX:Cervicalgia Esophageal reflux DX:Esophageal reflux Sciatica DX:Sciatica Solitary pulmonary nodule 06/15/2013 DX:Merari itary pulmonary nodule RAMOS (obstructive sleep apnea) 10/13/2017 DX :RAMOS (obstructive sleep apnea); COMMENT: [facility] Home Sleep Apnea Test: Date 11/22/2018; Wt 143#; BMI 28; BRISA 8, AI 1; HI 8; Unclassified apneas 1; Obstructive apneas 1; Central apneas 1; Mixed apneas 0; hypopneas 49; average oxygen saturation 94% (lowest 76% without saturations <88% for 5% or more of study) - Obstructive Sleep Apnea - mild; mostly hypopneas; without sleep related hypoventilation by* Mild persistent asthma witho ut complication 10/13/2017 DX:Mild persistent asthma wi thout complication Heart murmur 08/14/2020 DX:Heart murmur Anxiety and depression 06/09/2021 DX:Anxiet y and depression Fibromyalgia 03/02/2022 DX:Fibromyalgia CPAP (continuous positive ai rway pressure) dependence Hyperlipidemia Family History Medical History Relation Name Comments Cataracts Aunt Stroke Father Prostate cancer Father's side Great Uncle Breast cancer Maternal Grandmother Diabetes Mother Heart attack Mother Cervical cancer Mother's side 1 Great gra ndmother Diabetes Mother's side 2 Cataracts Paternal Grandmother Glaucoma Paternal Grandmother Relation Name Status Comments Aunt Brother 1 Alive mentally challe nged Brother 2 Alive asthma,bipolar disorder Father Alive Emphysema, stro ke Father's side Maternal Grandfather Maternal Grandmother Breast Ca, Alzheimer's dx Mother Alive HTN, arthritis, CAD, Seizure dx, Anxiety/Depression, DM Mother's side 1 Mother's side 2 Paternal Grandfather Paternal Grandmother Sister Alive anxiety, depres brionna Son 1990; PTSD, chr onic pain, tumor in knee Social History Tobacco Use Types Packs/Day Years Used Date Smoking Tobacco: Never Smokeless Tobacco: Never Tobacco Cessation:Counseling Given: Not Answered Alcohol Use Standard Drinks/Week Comments Not Currently [...] ed Within the last 3 months, ho rashad many times did you visit the emergency [...] care for your loved ones. For example, childcare director or elderly care for an older adult? [...] Orientation Straight 08/21/2024 5: 33 PM EST Obstetrics History Last Filed Vital Signs Vital Sign Reading Time Taken Comments Blood Pressure 100/78 08/31/2024 9:06 AM EST Pulse 89 08/31/2024 9:06 AM EST Temperature 36.2 ??C (97.2 ??F) 08/31/2024 9:06 AM ES T Respiratory Rate 18 08/27/2024 10:21 AM EST Oxygen Saturation 96% 08/31/2024 9:06 AM EST Inhaled Oxygen Concentration - - Weight 67.1 kg (148 lb) 10/30/2024 3:00 PM EDT Height 152.4 cm (5') 10/30/2024 3:00 PM EDT Body Mass Index 28.9 10/30/2024 3:00 PM EDT Plan of Treatment Upcoming Encounters Date Type Department Care Team (Late st Contact Info) Description 11/07/2024 8:30 AM EDT Hospital Encounter [facility] Endoscopy [address] [place] [address] Danica Park MD [address] [address] 11/08/2024 8:30 AM EDT Appointment [facility] Bone Density [address] [place] [address] 11/16/2024 11:15 AM EDT Office Visit Internal Medicine - [place] [address] [phone] Tanja Larkin MD [address] [phone] 11/20/2024 11:00 AM EDT [facility]ointment [facility] [address] [place] [address] 02/11/2025 9:30 AM EDT Office Visit Pulmonolgy - [place] [address] [phone] Abhay Coppola MD [address] [address] 03/04/2025 9:10 AM EDT Office Visit Gastroenterology - [place] [address] [phone] Daphnie Almanza PA [address] [address] Health Maintenance Due Date Last Done Comments Pneumococcal Vaccine: 50+ Years (2 of 2 - PCV) 10/26/2018 10/26/2017 Pneumococcal Vaccine: Pediatrics (0 to 5 Years) and At-Risk Patients (6 to 64 Years) (2 of 2 - PCV) 10/26/2018 10/26/2017 HIV Screening 06/05/2022 COVID-19 Vaccine ( season) 2024 03/22/2023, 05/09/2022, 10/08/2021, Additional history exists DTaP,Tdap,and Td Vaccines (3 - Td or Tdap) 05/30/2025 05/30/2015, 01/28/2010 Social Influencers of Health Screening 06/11/2025 06/11/2024 Hypertension/CHF/CAD Annual BMP Blood Test 08/21/2025 08/21/2024, 06/18/2024, 09/28/2023 Depression Screening 08/29/2025 08/29/2024 Breast Cancer Screening 11/17/2025 11/18/19 24, 11/15/2022, 11/14/2021, Additional history exists Cholesterol Screening (Lipid Panel) 06/18/2029 06/18/2024, 03/01/2024, 03/01/2024 Cervical Cancer Screening: HPV 10/26/2029 10/26/2024 Colorectal Cancer Screening: Colonoscopy 07/24/2034 07/24/2024, 05/29/2019 Hepatitis B Vaccines Completed 11/07/2013, 06/13/2013, 05/09/2013 Hepatitis C Screening Completed 05/17/2022 Zoster Vaccines Completed 05/20/2023, 03/20/2023 Influenza Vaccine [...] on patient's age to complete this topic MMR Vaccines Aged Out No longer eligi ble based on patient's age to complete this topic Meningococcal ACWY Vaccine Aged Out N o longer eligible based on patient's age to complete this topic Meningococcal B Vaccine Aged Out No l onger eligible based on patient's age to complete this topic RSV Immunization Patients Under 20 months Aged Out No longer eligible based on patient's age to complete this topic Varicella Vaccines Aged Out No longer eligible based on patient's age to complete this topic Procedures Procedure Name Priority Date/Time Associated Diagnosis Comments PAP SMEAR Routine 10/26/2024 12:00 AM EDT Encounter for gynecological examination (general) (routine) without abnormal findings HPV WITH REFLEX GENOTYPE Routine 10/26/2024 12:00 AM EDT Encounter for gynecological examination (general) (routine) without abnormal findings RUBEOLA ANTIBODY IGG Routine 10/18/2024 11:28 AM EDT Adult general medical examination CT CHEST WO CONTRAST STAT 08/21/2024 9:55 PM EST CBC WITH AUTO DIFFERENTIAL STAT 08/21/2024 9:28 PM EST MAGNESIUM STAT 08/21/2024 9:28 PM EST COMPREHENSIVE METABOLIC PANEL STAT 08/21/2024 9:28 PM EST CBC AND DIFFERENTIAL STAT 08/21/2024 9:28 PM EST ECG 12-LEAD STAT 08/21/2024 6:32 PM EST XR CHEST 2 VIEWS STAT 08/21/2024 5:46 PM EST [id number], RSV, FLU A AND B QUALITATIVE RT-PCR, INTERNAL LAB STAT 08/21/2024 3:40 PM EST COLONOSCOPY Routine 07/24/2024 8:04 AM EST Hx of colonic polyps LIPID PANEL WITH REFLEX TO DIRECT LDL Routine 06/18/2024 8:50 AM EST Primary hypertension Pure hypercholesterolemia Mild persistent asthma without complication MAG SCREENING DIGITAL Routine 11/18/2023 11:39 AM EDT Encounter for screening mammogram for malignant neoplasm of breast HEPATITIS C SCREENING Routine 05/17/2022 from Last 3 Months or Most Recently Relevant to Health Maintenance Results * HPV with reflex genotype (10/26/2024 12:00 AM EDT) HPV Negative Negative LAB MICROBIOLOGY METHOD 10/29/2024 3:58 PM EDT [facility] Brushing/Spatula Cervix uteri structure / Unknown 10/26/2024 10/29/2024 6:20 AM EDT us Yenni Sandoval MD LAB MOLECULAR DIAGNOSTIC S ORDERABLES Final Result [facility] [address] [place] [phone], * Pap smear (10/26/2024 12:00 AM EDT) Interpretation Negative for intraepithelial lesion or malignancy 10/30/2024 9:00 AM EDT [facility] General Categorization Negative 10/30/2024 9:00 AM EDT [facility] Other Findings Atrophy 10/30/2024 9:00 AM T [facility] Specimen Adequacy Satisfactory for evaluation 10/30/2024 9:00 AM EDT [facility] Pap Methodology Liquid Based Pap Test 10/30/2024 9:00 AM EDT [facility] Disclaimer The Pap test is a screening test which carries an inherent false negative rate. These test results should be correlated with the patient's clinical findings and history. This Pap test was processed using an automated screening system. Technical cytopathology services provided by [facility], at [address] [place] [id number] (CLIA # [id number]/Selene Sutherland MD, Digital Music Instructor.) 10/30/2024 9:00 AM EDT [facility] Console Pap Interpretation Reported 10/30/2024 9:00 AM EDT [facility] Brushing/Spatula Cervix uteri structure / Unknown 10/26/2024 10/29/2024 6:20 AM EDT us Yenni Sandoval MD LAB CYTOLOGY ORDERABLES Final Result Performing Organization Address [facility]/ZIP Co de Phone Number [facility] [address] [place] [address], [place] [phone] * Rubeola antibody IgG (10/18/2024 11:28 AM EDT) Rubeola IgG Positive Positive LAB CHEMISTRY METHOD 10/18/2024 1:09 PM EDT [facility] Rubeola IgG Antibody, measured 174.00 >=16.50 AU/mL LAB CHEMISTRY METHOD 10/18/2024 1:09 PM EDT [facility] Blood Venous blood specimen / Unknown Venipuncture / Unknown 10/18/2024 11:28 AM EDT 10/18/2024 11:48 AM EDT Narrative [facility] - 10/18/2024 1:09 PM EDT Interpretation >=16.5 AU/ml is considered to be consistent with Immunity us Tanja Larkin MD LAB BLOOD ORDERABLES Final Res ult Performing Organization Address [facility]/ZIP Co de Phone Number [facility] [address] [place] [address], [place] [phone] * CT Chest wo Contrast (08/21/2024 9:55 PM EST) Anatomical Region Laterality Modality Body Computed Tomogra phy 08/21/2024 10:4 4 PM EST Impressions 08/21/2024 10:44 PM EST 1. Bilateral ground-glass and linear opacities suggesting viral infection with subsegmental atelectasis. This document has been electronically signed by: Suresh Joseph MD on 08/21/2024 22:44:06 Narrative 08/21/2024 10:44 PM EST INDICATION: cough/congestion for weeks refractory to abx/steroids CT chest without contrast Comparison: None Findings: The heart is normal size. The visualized thyroid and mediastinum are unremarkable. Nonspecific bilateral ground-glass and linear opacities suggesting viral infection with subsegmental atelectasis. No consolidation, pleural effusion or pneumothorax. Calcified granuloma in the left upper lobe. Cholecystectomy. No acute findings in the visualized upper abdomen. No acute fractures. Procedure Note Suresh Joseph MD - 08/21/2024 INDICATION: cough/congestion for weeks refractory to abx/steroids CT chest without contrast Comparison: None Findings: The heart is normal size. The visualized thyroid and mediastinum are unremarkable. Nonspecific bilateral ground-glass and linear opacities suggesting viral infection with subsegmental atelectasis. No consolidation, pleural effusion or pneumothorax. Calcified granuloma in the left upper lobe. Cholecystectomy. No acute findings in the visualized upper abdomen. No acute fractures. IMPRESSION: 1. Bilateral ground-glass and linear opacities suggesting viralinfection with subsegmental atelectasis. This document has been electronically signed by: Suresh Joseph MD on 08/21/2024 22:44:06 Brenna FUNEZ [facility] [place]EDURES Final Result * CBC auto differential (08/21/2024 9:28 PM EST) WBC 7.7 4.8 - 10.8 K/mcL LAB HEMETOLOGY METHOD 08/21/2024 9:47 PM EST [facility] RBC 4.50 3.80 - 4.80 M/mcL LAB HEMETOLOGY METHOD 08/21/2024 9:47 PM EST [facility] Hemoglobin 13.6 11.5 - 16.0 g/dL LAB HEMETOLOGY METHOD 08/21/2024 9:47 PM [facility] Hematocrit 40.9 35.0 - 47.0 % LAB HEMETOLOGY METHOD 08/21/2024 9:47 PM [facility] MCV 91.9 79.0 - 98.0 FL LAB HEMETOLOGY METHOD 08/21/2024 9:47 PM [facility] MCH 30.6 27.0 - 32.0 pcg LAB HEMETOLOGY METHOD 08/21/2024 9:47 PM [facility] MCHC 33.3 32.0 - 37.0 g/dL LAB HEMETOLOGY METHOD 08/21/2024 9:47 PM [facility] RDW 13.2 11.0 - 15.0 % LAB HEMETOLOGY METHOD 08/21/2024 9:47 PM [facility] Platelets 307 130 - 400 K/mcL LAB HEMETOLOGY METHOD 08/21/2024 9:47 PM [facility] MPV 9.8 7.0 - 11.0 FL LAB HEMETOLOGY METHOD 08/21/2024 9:47 PM [facility] NRBC 0.0 <1.0 % LAB HEMETOLOGY METHOD 08/21/2024 9:47 PM [facility] NRBC Absolute 0.00 <0.10 K/mcL LAB HEMETOLOGY METHOD 08/21/2024 9:47 PM [facility] Neutrophils Relative 48.7 % LAB HEMETOLOGY METHOD 08/21/2024 9:47 PM [facility] Lymphocytes Relative 40.8 % LAB HEMETOLOGY METHOD 08/21/2024 9:47 PM [facility] Monocytes Relative 8.2 % LAB HEMETOLOGY METHOD 08/21/2024 9:47 PM [facility] Eosinophils Relative 1.4 % LAB HEMETOLOGY METHOD 08/21/2024 9:47 PM EST [facility] Basophils Relative 0.6 % LAB HEMETOLOGY METHOD 08/21/2024 9:47 PM EST [facility] Immature Granulocytes Relative 0.3 % LAB HEMETOLOGY METHOD 08/21/2024 9:47 PM [facility] Neutrophils Absolute 3.77 1.50 - 7.00 K/mcL LAB HEMETOLOGY METHOD 08/21/2024 9:47 PM EST [facility] Lymphocytes Absolute 3.15 1.00 - 5.00 K/mcL LAB HEMETOLOGY METHOD 08/21/2024 9:47 PM [facility] Monocytes Absolute 0.63 0.20 - 1.00 K/mcL LAB HEMETOLOGY METHOD 08/21/2024 9:47 PM [facility] Eosinophils Absolute 0.11 0.00 - 0.50 K/mcL LAB HEMETOLOGY METHOD 08/21/2024 9:47 PM EST [facility] Basophils Absolute 0.05 0.00 - 0.20 K/mcL LAB HEMETOLOGY METHOD 08/21/2024 9:47 PM [facility] [facility] Immature Granulocytes Absolute 0.02 0.00 - 0.03 K/mcL LAB HEMETOLOGY METHOD 08/21/2024 9:47 PM EST [facility] Blood Venous blood specimen / Unknown Venipuncture / Unknown 08/21/2024 9:28 PM EST 08/21/2024 9:41 PM EST us Brenna FUNEZ LAB BLOOD ORDERABLES Final Resul t [facility] [address] [place] [address], * Magnesium (08/21/2024 9:28 PM EST) Magnesium 2.1 1.9 - 2.6 mg/dL LAB CHEMISTRY METHOD 08/21/2024 10:10 PM [facility] Blood Venous blood specimen / Unknown Venipuncture / Unknown 08/21/2024 9:28 PM EST 08/21/2024 9:41 PM EST us Brenna FUNEZ LAB BLOOD ORDERABLES Final Resul t [facility] [address] [place] [address], * (ABNORMAL) Comprehensive metabolic panel (08/21/2024 9:28 PM EST) Sodium 143 133 - 145 mmol/L LAB CHEMISTRY METHOD 08/21/2024 10:10 PM [facility] Potassium 3.1(L) 3.5 - 5.5 mmol/L LAB CHEMISTRY METHOD 08/21/2024 10:10 PM [facility] Chloride 107 96 - 110 mmol/L LAB CHEMISTRY METHOD 08/21/2024 10:10 PM [facility] CO2 29 21 - 32 mmol/L LAB CHEMISTRY METHOD 08/21/2024 10:10 PM [facility] Anion Gap 7 3 - 11 LAB CHEMISTRY METHOD 08/21/2024 10:10 PM [facility] Glucose 105(H) 70 - 100 mg/dL LAB CHEMISTRY METHOD 08/21/2024 10:10 PM [facility] BUN 13 5 - 25 mg/dL LAB CHEMISTRY METHOD 08/21/2024 10:10 PM [facility] Creatinine 0.66 0.50 - 1.10 mg/dL LAB CHEMISTRY METHOD 08/21/2024 10:10 PM [facility] eGFR 104 >=60 mL/min/1. 73m2 LAB CHEMISTRY METHOD 08/21/2024 10:10 PM [facility] Comment:Calculation based on the??Chronic Kidney Disease Epidemiology Collaboration (CKD-EPI) equation refit??without adjustment for race. BUN/Creatinine Ratio 19.7 LAB CHEMISTRY METHOD 08/21/2024 10:10 PM [facility] Calcium 9.0 8.5 - 10.5 mg/dL LAB CHEMISTRY METHOD 08/21/2024 10:10 PM [facility] AST (SGOT) 76(H) 10 - 42 unit/L LAB CHEMISTRY METHOD 08/21/2024 10:10 PM [facility] ALT (SGPT) 161(H) 10 - 60 unit/L LAB CHEMISTRY METHOD 08/21/2024 10:10 PM [facility] Alkaline Phosphatase 135(H) 42 - 121 unit/L LAB CHEMISTRY METHOD 08/21/2024 10:10 PM [facility] Total Protein 6.6 6.0 - 8.0 g/dL LAB CHEMISTRY METHOD 08/21/2024 10:10 PM [facility] Albumin 3.7 3.2 - 5.0 g/dL LAB CHEMISTRY METHOD 08/21/2024 10:10 PM [facility] Total Bilirubin 0.8 0.0 - 1.4 mg/dL LAB CHEMISTRY METHOD 08/21/2024 10:10 PM [facility] Blood Venous blood specimen / Unknown Venipuncture / Unknown 08/21/2024 9:28 PM EST 08/21/2024 9:41 PM EST us Brenna FUNEZ LAB BLOOD ORDERABLES Final Resul t [facility] [address] [place] [address], * ECG 12 lead (08/21/2024 6:32 PM EST) Ventricular Rate ECG 73 BPM GEMUSE Atrial Rate 73 BPM GEMUSE P-R Interval 162 ms GEMUSE QRS Duration 90 ms GEMUSE Q-T Interval 404 ms GEMUSE QTc 445 ms GEMUSE P Wave [place] 39 degrees GEMUSE R [place] 1 degrees GEMUSE T [place] 14 degrees GEMUSE ECG Interpretation Normal sinus rhythm When compared with ECG of 14-OCT-2020 12:20, No significant change was found Confirmed by ROSY STEVEN ([id number]) on 08/22/2024 7:47:48 PM GEMUSE 08/21/2024 6:32 PM EST 08/22/2024 7:47 PM EST us Brenna FUNEZ ECG ORDERABLES Final Result GEMUSE * XR Chest 2 Views (08/21/2024 5:46 PM EST) Anatomical Region Laterality Modality Body Radiographic Shelbie ging 08/22/2024 8:22 AM EST Impressions 08/22/2024 8:23 AM EST Impression: 1. Poor inspiration. 2. Bibasilar subsegmental atelectasis. Telerad DEE DEE ([id number]) -------- FINAL REPORT -------- Dictated By: Marleny Delcid Dictated Date: 08/22/2024 08:22 ET Assigned Physician: Marleny Delcid Reviewed and Electronically Signed By: Marleny Delcid Signed Date: 08/22/2024 08:23 ET Workstation ID: [id number] Transcribed By: Self Edit Transcribed Date: 08/22/2024 08:22 ET Narrative 08/22/2024 8:23 AM EST History: Persistent cough. Comparison: 10/14/20, CT abdomen/pelvis 08/26/23 Findings: PA and lateral views. This is a poor inspiration, accentuating cardiac size. Hilar contours and pulmonary vascularity are within normal limits. There are minimal thin bandlike opacities at both lung bases, similar to the previous studies, suggesting subsegmental atelectasis or scar. The costophrenic angles are sharp. Thoracic vertebral endplate spurring is noted. Cholecystectomy clips are present. Procedure Note Marleny Delcid MD - 08/22/2024 History: Persistent cough. Comparison: 10/14/20, CT abdomen/pelvis 08/26/23 Findings: PA and lateral views. This is a poor inspiration, accentuating cardiacsize. Hilar contours and pulmonary vascularity are within normal limits.There are minimal thin bandlike opacities at both lung bases, similar tothe previous studies, suggesting subsegmental atelectasis or scar. Thecostophrenic angles are sharp. Thoracic vertebral endplate spurring is noted. Cholecystectomy clips arepresent. IMPRESSION: Impression: 1. Poor inspiration. 2. Bibasilar subsegmental atelectasis. Telerad PA ([id number]) -------- FINAL REPORT -------- Dictated By: Marleny Delcid Dictated Date: 08/22/2024 08:22 ET Assigned Physician: Marleny Delcid Reviewed and Electronically Signed By: Marleny Delcid Signed Date: 08/22/2024 08:23 ET Workstation ID: [id number] Transcribed By: Self Edit Transcribed Date: 08/22/2024 08:22 ET Brenna FUNEZ IMG XR PROCEDURES Final Result * [id number], RSV, Influenza A and B qualitative RT-PCR (08/21/2024 3:40 PM EST) Influenza A PCR Not Detected Not Detected LAB MICROBIOLOGY METHOD 08/21/2024 4:34 PM [facility] Influenza B PCR Not Detected Not Detected LAB MICROBIOLOGY METHOD 08/21/2024 4:34 PM [facility] RSV PCR Not Detected Not Detected LAB MICROBIOLOGY METHOD 08/21/2024 4:34 PM [facility] SARS COV-2 Not Detected Not Detected LAB MICROBIOLOGY METHOD 08/21/2024 4:34 PM [facility] Swab Both anterior nares / Unknown Non-blood Collection / Unknown 08/21/2024 3:40 PM EST 08/21/2024 3:52 PM EST [facility] - 08/21/2024 4:34 PM EST Disclaimer: ??Testing was performed using the [employer] GeneXpert Xpress SARS-CoV-2 _Flu_RSV PLUS PCR assay. ??The manner in which this information is used to guide patient care is the responsibility of the healthcare provider. ??Results should be correlated with the clinical history, epidemiological data, and other data available to the clinician evaluating the patient. ??Negative results do not preclude infection. ??This test has been authorized by the FDA under an Emergency Use Authorization (EUA). ??This test is only authorized for the duration of time the declaration that circumstances exist justifying the authorization of the emergency use of in vitro diagnostic tests for detection of SARS-CoV-2 virus and/or diagnosis of COVID-19 infection under section 564 (b) (1) of the Act, 21 U.S.C 360bbb-3 (b) (1), unless the authorization is terminated or revoked sooner. ?? Reference Range: Not Detected Fact sheet for Healthcare providers can be found at https://www.fda.gov/media/129136/download. ?? Fact sheet for Healthcare patients can be found at https://www.fda.gov/media/716203/download. Pankaj Medrano MD LAB MICROBIOLOGY - GENERA L ORDERABLES Final Result Performing Organization Address [facility]/State/[facility] Co de Phone Number [facility] [address] [place] [address], * COLONOSCOPY Anesthesia - [facility]; [facility] ENDOSCOPY (07/24/2024 8:04 AM EST) Anatomical Region Laterality Modality Endoscopy 07/24/2024 7:48 AM EST Impressions 07/24/2024 8:05 AM EST - Internal hemorrhoids. ? - The examination was otherwise normal. ? - No specimens collected. Recommendation: ?- Discharge patient to home. ? - Repeat colonoscopy in 10 years for surveillance. Narrative 07/24/2024 8:05 AM EST [facility] Patient Name: Kristy Li Procedure Date: 07/24/2024 7:48 AM Date of : 1970 Age: 54 Room: ROOM 17 Gender: Female Note Status: Finalized Attending MD: Danica Park MD, Procedure Date No Time: 07/24/2024 Procedure: ? Colonoscopy Indications: ? High risk colon cancer surveillance: Personal history ? of colonic polyps Providers: ? Danica Park MD Referring MD: ?Danica Park MD Medicines: ? Monitored Anesthesia Care Complications: ? No immediate complications. Estimated Blood Loss: ? Estimated blood loss: none. Procedure: ? Pre-Anesthesia Assessment: ? - Prior to the procedure, a History and Physical was ? performed, and patient medications and allergies were ? reviewed. The patient is competent. The risks and ? benefits of the procedure and the sedation options and ? risks were discussed with the patient. All questions ? were answered and informed consent was obtained. ? Patient identification and proposed procedure were ? verified by the physician, the nurse, the motor vehicle license clerk ? and the oil burner technician in the pre-procedure area in the ? endoscopy suite. Mental Status Examination: alert and ? oriented. Airway Examination: normal oropharyngeal ? airway and neck mobility. Respiratory Examination: ? clear to auscultation. CV Examination: normal. ? Prophylactic Antibiotics: The patient does not require ? prophylactic antibiotics. Prior Anticoagulants: The ? patient has taken no anticoagulant or antiplatelet ? agents. ASA Grade Assessment: II - A patient with mild ? systemic disease. After reviewing the risks and ? benefits, the patient was deemed in satisfactory ? condition to undergo the procedure. The anesthesia ? plan was to use monitored anesthesia care (MAC). ? Immediately prior to administration of medications, ? the patient was re-assessed for adequacy to receive ? sedatives. The heart rate, respiratory rate, oxygen ? saturations, blood pressure, adequacy of pulmonary ? ventilation, and response to care were monitored ? throughout the procedure. The physical status of the ? patient was re-assessed after the procedure. ? After I obtained informed consent, the scope was ? passed under direct vision. Throughout the procedure, ? the patient's blood pressure, pulse, and oxygen ? saturations were monitored continuously. The Olympus ? Colonoscope was introduced through the anus and ? advanced to the cecum, identified by appendiceal ? orifice and ileocecal valve. The colonoscopy was ? performed without difficulty. The patient tolerated ? the procedure well. The quality of the bowel ? preparation was excellent. Findings: ?The perianal and digital rectal examinations were ? normal. ? Internal hemorrhoids were found during retroflexion. ? The hemorrhoids were Grade I (internal hemorrhoids ? that do not prolapse). ? The exam was otherwise without abnormality. Procedure Code(s): ? --- Professional --- ? G0105, Colorectal cancer screening; colonoscopy on ? individual at high risk Diagnosis Code(s): ? --- Professional --- ? Z86.010, Personal history of colonic polyps CPT copyright 2020 [employer]. All rights reserved. The codes documented in this report are preliminary and upon aircraft de icer installer review may be revised to meet current compliance requirements. Danica Park MD 07/24/2024 8:05:30 AM This report has been signed electronically.Danica Park MD Number of Addenda: 0 Note Initiated On: 07/24/2024 7:48 AM Scope Withdrawal Time: 0 hours 6 minutes 20 seconds Scope In: 7:53:45 AM Scope Out: 8:04:47 AM ? Endoscopy Department at [facility] - [address] [place] [address], ? [place] [address] Procedure Note Danica Park MD - 07/24/2024 [facility] Patient Name: Kristy Li Procedure Date: 07/24/2024 7:48 AM Date of : 1970 Age: 54 Room: ROOM 17 Gender: Female Note Status: Finalized Attending MD: Danica Park MD, Procedure Date No Time: 07/24/2024 Procedure: Colonoscopy Indications: High risk colon cancer surveillance: Personalhistory of colonic polyps Providers: Danica Park MD Referring MD: Danica Park MD Medicines: Monitored Anesthesia Care Complications: No immediate complications. Estimated Blood Loss: Estimated blood loss: none. Procedure: Pre-Anesthesia Assessment: - Prior to the procedure, a History and Physicalwas performed, and patient medications and allergieswere reviewed. The patient is competent. The risks and benefits of the procedure and the sedation optionsand risks were discussed with the patient. Allquestions were answered and informed consent was obtained. Patient identification and proposed procedure were verified by the physician, the nurse, theanesthetist and the oil burner technician in the pre-procedure area in the endoscopy suite. Mental Status Examination: alertand oriented. Airway Examination: normal oropharyngeal airway and neck mobility. Respiratory Examination: clear to auscultation. CV Examination: normal. Prophylactic Antibiotics: The patient does notrequire prophylactic antibiotics. Prior Anticoagulants: The patient has taken no anticoagulant or antiplatelet agents. ASA Grade Assessment: II - A patient withmild systemic disease. After reviewing the risks and benefits, the patient was deemed in satisfactory condition to undergo the procedure. The anesthesia plan was to use monitored anesthesia care (MAC). Immediately prior to administration of medications, the patient was re-assessed for adequacy to receive sedatives. The heart rate, respiratory rate, oxygen saturations, blood pressure, adequacy of pulmonary ventilation, and response to care were monitored throughout the procedure. The physical status ofthe patient was re-assessed after the procedure. After I obtained informed consent, the scope was passed under direct vision. Throughout theprocedure, the patient's blood pressure, pulse, and oxygen saturations were monitored continuously. TheOlympus Colonoscope was introduced through the anus and advanced to the cecum, identified by appendiceal orifice and ileocecal valve. The colonoscopy was performed without difficulty. The patient tolerated the procedure well. The quality of the bowel preparation was excellent. Findings: The perianal and digital rectal examinations were normal. Internal hemorrhoids were found duringretroflexion. The hemorrhoids were Grade I (internal hemorrhoids that do not prolapse). The exam was otherwise without abnormality. Procedure Code(s): --- Professional --- G0105, Colorectal cancer screening; colonoscopy on individual at high risk Diagnosis Code(s): --- Professional --- Z86.010, Personal history of colonic polyps CPT copyright 2020 [employer]. All rights reserved. The codes documented in this report are preliminary and upon aircraft de icer installer reviewmay be revised to meet current compliance requirements. Danica Park MD 07/24/2024 8:05:30 AM This report has been signed electronically.Danica Park MD Number of Addenda: 0 Note Initiated On: 07/24/2024 7:48 AM Scope Withdrawal Time: 0 hours 6 minutes 20 seconds Scope In: 7:53:45 AM Scope Out: 8:04:47 AM Endoscopy Department at [facility] - [address] [place] [id number] IMPRESSION: - Internal hemorrhoids. - The examination was otherwise normal. - No specimens collected. Recommendation: - Discharge patient to home. - Repeat colonoscopy in 10 years forsurveillance. Danica Park MD GI~PROCEDURE ORDERABLES Fin al Result * Lipid panel with reflex to direct LDL (06/18/2024 8:50 AM EST) Cholesterol 104 0 - 200 mg/dL LAB CHEMISTRY METHOD 06/18/2024 10:27 AM [facility] Triglycerides 112 0 - 150 mg/dL LAB CHEMISTRY METHOD 06/18/2024 10:27 AM [facility] HDL 45 >=40 mg/dL LAB CHEMISTRY METHOD 06/18/2024 10:27 AM [facility] LDL Calculated 37 0 - 100 mg/dL LAB CHEMISTRY METHOD 06/18/2024 10:27 AM [facility] VLDL Cholesterol Oliverio 22.4 mg/dL LAB CHEMISTRY METHOD 06/18/2024 10:27 AM [facility] Non HDL Chol. (LDL+VLDL) 59 <145 mg/dL LAB CHEMISTRY METHOD 06/18/2024 10:27 AM [facility] Chol/HDL Ratio 2.3 0.0 - 4.4 LAB CHEMISTRY METHOD 06/18/2024 10:27 AM EST [facility] Blood Venous blood specimen / Unknown Venipuncture / Unknown 06/18/2024 8:50 AM EST 06/18/2024 8:50 AM EST us Arash Vee MD LAB BLOOD ORDERABLES Final Resul t [facility] [address] [place] [address], * MAG SCREENING DIGITAL (11/18/2023 11:39 AM EDT) Anatomical Region Laterality Modality Mammography 11/18/2023 10:1 4 AM EDT Narrative 11/18/2023 11:39 AM EDT [facility] Diagnostic Imaging Department [address] [place] [address] Patient: ??KRISTY LI ?/Age/Sex: 1970 - 53 - F Unit#: ??[id number] ? Location/Status: ??SPDIMAM/REG CLI ? Mnemonic/Ordering Site: ??DIGSC/SPMAM Ordering Physician: ??YENNI RM MD Mag Screening Digital - 11/18/23 - [facility] Report Status:Signed EXAM: Mag Screening Digital EXAM DATE AND TIME: 11/18/2023 10:39 AM HISTORY: ??Screening. COMPARISON: ??11/15/22, 11/14/21, 11/08/20 TECHNIQUE: Bilateral digital breast tomosynthesis was performed in the CC and MLO projections. Computer aided detection with [employer] 3D 3.1 was employed. TISSUE DENSITY: c. The breasts are heterogeneously dense, which may obscure small masses. FINDINGS: No suspicious masses, grouped microcalcifications, or areas of architectural distortion are seen. Scattered microcalcifications are without significant change. The skin and vascularity are unremarkable. IMPRESSION: Stable mammographic appearance of the breasts. ??No evidence of malignancy is seen. A negative mammogram in the presence of a clinically suspicious palpable abnormality does not preclude the possibility of malignancy or alter the indications for biopsy. BI-RADS: ??Category 2: Benign RECOMMENDATION(S): 1: Routine screening mammogram BILATERAL in 1 year. Dictating Physician: ??MARLENY DELCID MD Electronically Signed by: ??MARLENY DELCID MD Dic Date/Time: ??11/18/23 1138 Sign date/Time: ??11/18/23 1139 Procedure Note Marleny Delcid MD - 02/13/2024 [facility] Diagnostic Imaging Department [address] [place] [address] Patient: KRISTY LI /Age/Sex: 1970 - 53 - F Unit#: [id number] [facility] Mnemonic/Ordering Site: [facility] Ordering Physician: YENNI RM MD Mag Screening Digital - 11/18/23 - 1038 Report Status:Signed EXAM: Mag Screening Digital EXAM DATE AND TIME: 11/18/2023 10:39 AM HISTORY: Screening. COMPARISON: 11/15/22, 11/14/21, 11/08/20 TECHNIQUE: Bilateral digital breast tomosynthesis was performed in the CCand MLO projections. Computer aided detection with [employer] 3D 3.1was employed. TISSUE DENSITY: c. The breasts are heterogeneously dense, which mayobscure small masses. FINDINGS: No suspicious masses, grouped microcalcifications, or areas ofarchitectural distortion are seen. Scattered microcalcifications are withoutsignificant change. The skin and vascularity are unremarkable. IMPRESSION: Stable mammographic appearance of the breasts. No evidence of malignancyis seen. A negative mammogram in the presence of a clinically suspicious palpable abnormality does not preclude the possibility of malignancy or alter the indications for biopsy. BI-RADS: Category 2: Benign RECOMMENDATION(S): 1: Routine screening mammogram BILATERAL in 1 year. Dictating Physician: MARLENY DELCID MD Electronically Signed by: MARLENY DELCID MD Dic Date/Time: 11/18/23 1138 Sign date/Time: 11/18/23 1139 Yenni Sandoval MD IM BI PROCEDURES Final Result * Hepatitis C Screening (05/17/2022) Hepatitis C Screening Abstracted Historical Provider HEALTH MAINTENANCE Final Result from Last 3 Months or Most Recently Relevant to Health Maintenance Insurance [facility] MEDICARE Care Teams Machine Learning Intern Relationship Specialty Start Date End Date Tanja Larkin MD [address] [place] [address] [phone] PCP - General Internal Medicine 05/04/24
--- OUTSIDE RECORDS SUMMARY | 2024-10-30 15:27 | XMS_ITS ---
Author Organization [facility] Address [address] [place] [address] Care Team Providers Care Swatch Folder Name Role Phone JOE COOLEY Primary Care Provider SADAF Son Unavailable [phone] Maddi Pérez Unavailable [phone] Encounters Encounter Location Date Provider Diagnosis [facility] [address] [address] 07/24/2024 Maddi Pérez PLAN OF TREATMENT No Information Progress Notes * Kristy LIDOB:1970 ( 54 yo F)Acc No.[id number]:07/24/2024 Patient:??Kristy LI Provider:??Maddi Pérez PA-C :1970?Age:54 Y?Sex:Fe male Date:07/24/2024 Address:[address] [place], [place] [id number] Pcp:JOE COOLEY Subjective: * Chief Complaints: * ? * Medical History:?? Objective: Assessment: Plan: * Treatment: * Images: Billing Information: * Visit Code:?? * Procedure Codes:?? * Sign off status: Pending * Provider:??Maddi Pérez PA-C Date:??06/28
--- OUTSIDE RECORDS SUMMARY | 2024-10-30 15:27 | XMS_ITS | Encounter Summary ---
Author Organization [facility] Address [address] [place] [address] Care Team Providers Care Baton Twirler Name Role Phone Tanja Larkin MD Primary Care Provider [phone] Encounter Details Date Type Department Care Team (Latest Contact Info) Description 10/29/2024 Lab Requisition [facility] - Main Lab [address] [facility] [place] [address] Yenni Sandoval MD 299 [facility] [address] [place] [phone] Encounter for gynecological examination (general) (routine) without abnormal findings Social History Tobacco Use Types Packs/Day Years [...] Record ed Within the last 3 months, dorothy solorzano many times did you visit the emergency [...] care for your loved ones. For example, early childhood assistant or elderly care for an older adult? [...] of Assessment Author No 08/21/2024 5:40 PM EST Kizzy Gaines RN * Are you blind or do [...] Kizzy Hernandez RN documented in this encounter Plan of Treatment Upcoming Encounters Date Type Department Care Team (Late st Contact Info) Description 11/07/2024 8:30 AM EDT Hospital Encounter [facility] Endoscopy [address] [place] [address] Danica Park MD [address] [address] 11/08/2024 8:30 AM EDT Appointment [facility] Bone Density [address] [place] [address] 11/16/2024 11:15 AM EDT Office Visit Internal Medicine - [place] [address] [phone] Tanja Larkin MD [address] [phone] 11/20/2024 11:00 AM EDT Appointment [facility] [address] [place] [address] 02/11/2025 9:30 AM EDT Office Visit Pulmonolgy - [place] [address] [phone] Abhay Coppola MD [address] [address] 03/04/2025 9:10 AM EDT Office Visit Gastroenterology - [place] 175 [facility] [address] [phone] Daphnie Almanza PA [address] [address] documented as of this encounter Procedures Procedure Name Priority Date/Time Associated Diagnosis Comments HPV WITH REFLEX GENOTYPE Routine 10/26/2024 12:00 AM EDT Encounter for gynecological examination (general) (routine) without abnormal findings PAP SMEAR Routine 10/26/2024 12:00 AM EDT Encounter for gynecological examination (general) (routine) without abnormal findings documented in this encounter Results * HPV with reflex genotype (10/26/2024 12:00 AM EDT) HPV Negative Negative LAB MICROBIOLOGY METHOD 10/29/2024 3:58 PM EDT [facility] Brushing/Spatula Cervix uteri structure / Unknown 10/26/2024 10/29/2024 6:20 AM EDT us Yenni Sandoval MD LAB MOLECULAR DIAGNOSTIC S ORDERABLES Final Result [facility] [address] [place] [address], * Pap smear (10/26/2024 12:00 AM EDT) Interpretation Negative for intraepithelial lesion or malignancy 10/30/2024 9:00 AM EDT [facility] General Categorization Negative 10/30/2024 9:00 AM EDT [facility] Other Findings Atrophy 10/30/2024 9:00 AM [facility] Specimen Adequacy Satisfactory for evaluation 10/30/2024 9:00 AM [facility] Pap Methodology Liquid Based Pap Test 10/30/2024 9:00 AM [facility] Disclaimer The Pap test is a screening test which carries an inherent false negative rate. These test results should be correlated with the patient's clinical findings and history. This Pap test was processed using an automated screening system. Technical cytopathology services provided by [facility], at [address] [place] [address] (CLIA # [id number]/Selene Sutherland MD, Configuration Management Consultant.) 10/30/2024 9:00 AM [facility] Console Pap Interpretation Reported 10/30/2024 9:00 AM [facility] Brushing/Spatula Cervix uteri structure / Unknown 10/26/2024 10/29/2024 6:20 AM EDT us Yenni Sandoval MD LAB CYTOLOGY ORDERABLES Final Result Performing Organization Address City/State/[facility] Co de Phone Number [facility] [address] [place] [address], documented in this encounter Visit Diagnoses Diagnosis Encounter for gynecological examination (general) (routine) without abnormal findings Encounter for screening mammogram for breast cancer documented in this encounter Additional Health Concerns Assessment Noted Time PHQ-9 Depression Total Score: 19 08/29/2 025 3:44 PM EST documented as of this encounter Care Teams Baton Twirler Relationship Specialty Start Date End Date Tanja Larkin MD 175 [facility] [address] [place] [phone] PCP - General Internal Medicine 05/04/24 documented as of this encounter
--- OUTSIDE RECORDS SUMMARY | 2024-10-30 15:27 | XMS_ITS | Encounter Summary ---
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 Giang This note was sent on 09/14 and again today. Patient is stating she received a call today and is thinking it may be from provider. Patient is stating that she went to the front desk assistant and informed no documentation had been sent concerning patient request for referral. However documentation was sent to provider as opposed to front desk assistant seeing that providers provide referrals. Also sending to Jose the event she was calling patient concerning cancelled Oral Surgery appt for September. Patient called in seeking referral to go to an oral surgeon for a lesion on her tongue. Patient active requested since 03/2024 and was able to get in elsewhere sooner. Provider will prepare referral and patient will come to cotton picker after having received call from front desk assistant that referral is ready. Patient questioned how soon it would be ready. I was explained to patient that I did not have an official timeframe, however office will reach out to her and she can cotton picker once it is ready. Patient is concerned that referral is specific of why she needed to see the Oral Surgeon. Explained to patient that appt request does specify the reasoning for the need for Oral Surgery * Telephone Encounter - Lore Ordaz - 09/14/2024 10:48 AM EDT Patient called in seeking referral to go to an oral surgeon for a lesion on her tongue. Patient active requested since 03/2024 and was able to get in elsewhere sooner. Provider will prepare referral and patient will come to cotton picker after having received call from front desk assistant that referral is ready.Patient questioned how soon it would be ready. I was explained to patient that I did not have an official timeframe, however office will reach out to her and she can cotton picker once it is ready. Patientis concerned that referral is specific of why she needed to see the Oral Surgeon. Explained to patient that appt request does specify the reasoning for the need for Oral Surgery documented in this encounter Plan of Treatment Not on file documented as of this encounter Visit Diagnoses Not on filedocumented in this encounter
--- OUTSIDE RECORDS SUMMARY | 2024-10-30 15:27 | XMS_ITS ---
Author Organization [facility] Address [address] [place] [address] Care Team Providers Care Certified Meeting Professional Name Role Phone JOE COOLEY Primary Care Provider SADAF Son Unavailable [phone] Maddi Pérez Unavailable [phone] Encounters Encounter Location Date Provider Diagnosis [facility] [address] [address] 06/05/2024 Maddi Pérez PLAN OF TREATMENT No Information Progress Notes * Kristy LIDOB:1970 ( 54 yo F)Acc No.[id number]:06/05/2024 Patient:??Kristy LI Provider:??Maddi Pérez PA-C :1970?Age:54 Y?Sex:Fe male Date:06/05/2024 Address:[address] [place], [place] [id number] Pcp:JOE COOLEY Subjective: * Chief Complaints: * ? * Medical History:?? Objective: Assessment: Plan: * Treatment: * Images: Billing Information: * Visit Code:?? * Procedure Codes:?? * Sign off status: Pending * Provider:??Maddi Pérez PA-C Date:??05/27
--- OUTSIDE RECORDS SUMMARY | 2024-10-30 15:27 | XMS_ITS | Patient Health Record ---
Author Organization [facility] Address [address] [place] [address] Care Team Providers Care Financial Accounting Manager Name Role Phone JOE COOLEY Primary Care Provider SADAF Son Unavailable [phone] Maddi Pérez Unavailable [phone] ALLERGIES Allergen (clinical drug ingredient) Drug/Non Drug Allergy documented on EMR Reaction Allergy Type Onset Date Status acetaminophen / oxycodone Percocet Unknown Drug Allergy Active codeine Codeine Unknown Drug Allergy Active ibuprofen Ibuprofen Unknown Drug Allergy Active REASON FOR REFERRAL No Information MEDICATIONS Medication SIG (Take, Route, Frequency, Duration) Notes Start Date End Date Status Potassium Chloride ER 10 MEQ TAKE ONE CAPSULE TWICE DAILY Oral for 30 Days Active Montelukast Sodium 10 MG Oral for 90 Days Active traZODone HCl 50 MG TAKE 1/2 TO 1 TABLET EVERY NIGHT AT BEDTIME NEEDED FOR SLEEP Oral for 30 Days Active Sucralfate 1 GM Oral for 30 Days Active Zepbound 5 MG/0.5ML 0.5 mL Subcutaneous once weekly for 30 days Active Cetirizine HCl 10 MG TAKE ONE TABLET BY MOUTH TWICE DAILY Oral for 90 Days Active Albuterol Sulfate (2.5 MG/3ML) 0.083% PLEASE SEE ATTACHED FOR DETAILED DIRECTIONS Inhalation for 12 Days Active Atorvastatin Calcium 20 MG TAKE ONE TABL ET DAILY Oral for 90 Days Active Trelegy Ellipta 100-62.5-25 MCG/ACT Inhalation for 30 Days Active Sulfamethoxazole-Trimethopr im 800-160 MG Oral for 7 Days Active Cymbalta 30 MG 1 capsule Orally Once a day twice daily Active Pantoprazole Sodium 40 MG TAKE ONE TABLE T EVERY DAY Oral for 90 Days Active hydroCHLOROthiazide 12.5 MG TAKE ONE CAP JAILENE DAILY Oral for 30 Days Active SOCIAL HISTORY Tobacco Use: Social History Observation Description Date Details (start date - stop date) Never Smoker NA - NA Sex Assigned At : Social History Observation Description Sex Assigned At Unknown Tobacco Use/Smoking Question Answer Notes Are you a nonsmoker Alcohol Screen (Audit-C) Question Answer Notes Did you have a drink contain ing alcohol in the past year? Yes How often did you have a dri nk containing alcohol in the past year? Monthly or less (1 point) Points 1 Interpretation Negative PROBLEMS Problem Type ICD Code Onset Dates Problem Status W/U Status Risk SNOMED Code Notes Problem Other obesity due to excess calories (E66.09) Active confirmed 703161330 Problem Overweight (E66.3) Active confirmed 348548968 Problem Anxiety disorder, unspecified (F41.9) Active confirmed 969532867 Problem Fibromyalgia (M79.7) Active confirmed 383317365 Problem Essential hypertension (I10) Active confirmed 72522298 Problem Body mass index [BMI] 29.0-29.9, adult (Z68.29) Active confirmed 185793708 Problem Body mass index [BMI] 32.0-32.9, adult (Z68.32) Active confirmed 277626241 Problem BMI 31.0-31.9,adult (Z68.31) Active confirmed 198107242 Problem Depression, unspecified (F32.A) Active confirmed 58922866 Problem History of asthma (Z87.09) Active confirmed 153968711 VITAL SIGNS Heart Rate 80 /min 06/13/2024 Blood pressure diastolic 56 mm Hg 06/13/2024 Oximetry 99 % 06/13/2024 Height 59 in 06/13/2024 Blood pressure systolic 100 mm Hg 06/13/2024 Weight 143 lbs 06/13/2024 BMI 28.88 kg/m2 06/13/2024 Encounters Encounter Location Date Provider Diagnosis [address] [address] 04/11/2024 Maddi Pérez Other obesity due to excess calories E66.09 ; Body mass index [BMI] 32.0-32.9, adult Z68.32 ; Essential hypertension I10 ; Anxiety disorder, unspecified F41.9 ; Depression, unspecified F32.A ; Fibromyalgia M79.7 ; History of asthma Z87.09 and Weight loss counseling, encounter for Z71.3 [address] 06/05/2024 Maddi Svrcek [address] 07/24/2024 Maddi Svrcek [address] 03/15/2024 Maddi Svrcek Other obesity due to excess calories E66.09 ; Body mass index [BMI] 32.0-32.9, adult Z68.32 ; Essential hypertension I10 ; Anxiety disorder, unspecified F41.9 ; Depression, unspecified F32.A ; Fibromyalgia M79.7 ; History of asthma Z87.09 and Weight loss counseling, encounter for Z71.3 [address] 04/11/2024 Maddi Svrcek Other obesity due to excess calories E66.09 ; BMI 31.0-31.9,adult Z68.31 ; Essential hypertension I10 ; Anxiety disorder, unspecified F41.9 ; Depression, unspecified F32.A ; Fibromyalgia M79.7 and Weight loss counseling, encounter for Z71.3 [address] 05/09/2024 Maddi Svrcek Overweight E66.3 ; B jessica mass index [BMI] 29.0-29.9, adult Z68.29 ; Essential hypertension I10 ; Anxiety disorder, unspecified F41.9 ; Depression, unspecified F32.A ; Fibromyalgia M79.7 and Weight loss counseling, encounter for Z71.3 [address] 06/13/2024 Maddi Svrcek Overweight E66.3 ; B [place] 28.0-28.9,adult Z68.28 ; Essential hypertension I10 ; Anxiety disorder, unspecified F41.9 ; Depression, unspecified F32.A ; Fibromyalgia M79.7 and Weight loss counseling, encounter for Z71.3 [facility] [address] 03/15/2024 Maddi Svrcek Other obesity due to excess calories E66.09 [address] 03/15/2024 Maddi Svrcek [address] [place] [address] 03/16/2024 Maddi Svrcek Other obesity due to excess calories E66.09 [address] [place] [address] 03/19/[address] [place] [address] 03/21/2024 SADAF FIGUEROAT [address] [place] [address] 05/09/2024 Maddi Svrcek [address] [place] [address] 05/31/2024 Maddi Svrcek ASSESSMENTS Encounter Date Diagnosis Assessment Notes Treatment Notes Treatment Clinical Notes Section Notes 03/15/2024 Body mass index [BMI] 32.0-32.9, adult (ICD-10 - Z68.32) #Obesity. 160.7 pounds, BMI 32.5. New patient welcomed [...] track activity level. Consider using apps like [employer], PetSmart[employer], lose it, stick as needed for self-monitoring and weight management. Consider group exercises. Consider hiring a personal consultant. Regular exercise is mccurdy to sustainable health [...] counseling and psychiatry and Dr Iniguez at [facility]. We would like to cover regular topics [...] Dictation was accomplished with the use of [employer] voice recognition software, prone to medical misidentifications and grammatical errors. This is unintentional and the practitioner does try to identify and correct these, but some could still be present. Please do not hesitate to contact practitioner for clarification. All questions answered to patients satisfaction. Patient verbalized understanding of diagnosis and treatments explained. To call sooner prior to next visit it any questions/concerns arise. 03/15/2024 Other obesity due to excess calories (ICD-10 - E66.09) 03/16/2024 Other obesity due to excess calories (ICD-10 - E66.09) 04/11/2024 Other obesity due to excess calories [...] track activity level. Consider using apps like [employer], [employer], lose it, stick as needed for self-monitoring and weight management. Consider group exercises. Consider hiring a personal consultant. Regular exercise is mccurdy to sustainable health [...] counseling and psychiatry and Dr Iniguez at [email or web address]. We would like to cover regular topics [...] Dictation was accomplished with the use of [employer] voice recognition software, prone to medical misidentifications and grammatical errors. This is unintentional and the practitioner does try to identify and correct these, but some could still be present. Please do not hesitate to contact practitioner for clarification. All questions answered to patients satisfaction. Patient verbalized understanding of diagnosis and treatments explained. To call sooner prior to next visit it any questions/concerns arise. 03/15/2024 Other obesity due to excess calories (ICD-10 - E66.09) #Obesity. 160.7 pounds, BMI 32.5. New patient welcomed [...] track activity level. Consider using apps like [employer], [employer], lose it, stick as needed for self-monitoring and weight management. Consider group exercises. Consider hiring a personal consultant. Regular exercise is mccurdy to sustainable health [...] counseling and psychiatry and Dr Iniguez at [facility] [employer]. We would like to cover regular topics [...] Dictation was accomplished with the use of [employer] voice recognition software, prone to medical misidentifications [...] track activity level. Consider using apps like [employer], [employer], lose it, stick as needed for self-monitoring and weight management. Consider group exercises. Consider hiring a personal consultant. Regular exercise is mccurdy to sustainable health [...] counseling and psychiatry and Dr Iniguez at [facility] [employer]. We would like to cover regular topics [...] Dictation was accomplished with the use of [employer] voice recognition software, prone to medical misidentifications [...] next visit it any questions/concerns arise. 04/11/2024 Other obesity due to excess calories (ICD-10 - E66.09) #Obesity. 04/11/24: 155.6 pounds, BMI 31.4. She is doing well on Zepbound 2.5 mg. Will increase to 5 mg on next refill. Reviewed importance of protein intake, hydration and regular exercise including resistance training. Will continue to work on lifestyle modifications and follow-up in 1 month. Follow-up sooner with any concerns. 03/15/24: 160.7 pounds, BMI 32.5. New patient [...] with any concerns. #Hypertension. Followed by PCP. Controlled. #Anxiety and [...] care coordination Case discussed with collaborating physician Rani Srinivasan who reviewed the assessment and plan. Chart, medications, labs, vital signs reviewed. Dictation was accomplished with the use of [employer] voice recognition software, prone to medical misidentifications [...] next visit it any questions/concerns arise. 04/11/2024 BMI 31.0-31.9,adult (ICD-10 - Z68.31) #Obesity. 04/11/24: 155.6 pounds, BMI 31.4. She is doing well on Zepbound 2.5 mg. Will increase to 5 mg on next refill. Reviewed importance of protein intake, hydration and regular exercise including resistance training. Will continue to work on lifestyle modifications and follow-up in 1 month. Follow-up sooner with any concerns. 03/15/24: 160.7 pounds, BMI 32.5. New patient [...] with any concerns. #Hypertension. Followed by PCP. Controlled. #Anxiety and [...] care coordination Case discussed with collaborating physician Rani Srinivasan who reviewed the assessment and plan. Chart, medications, labs, vital signs reviewed. Dictation was accomplished with the use of [employer] voice recognition software, prone to medical misidentifications and grammatical errors. This is unintentional and the practitioner does try to identify and correct these, but some could still be present. Please do not hesitate to contact practitioner for clarification. All questions answered to patients satisfaction. Patient verbalized understanding of diagnosis and treatments explained. To call sooner prior to next visit it any questions/concerns arise. 05/09/2024 Overweight (ICD-10 - E66.3) #Obesity. 05/09/24: 147 pounds, BMI 29.7. She is [...] any concerns. 03/15/24: 160.7 pounds, BMI 32.5. New patient [...] with any concerns. #Hypertension. Followed by PCP. Controlled. #Anxiety and [...] Dictation was accomplished with the use of [employer] voice recognition software, prone to medical misidentifications and grammatical errors. This is unintentional and the practitioner does try to identify and correct these, but some could still be present. Please do not hesitate to contact practitioner for clarification. All questions answered to patients satisfaction. Patient verbalized understanding of diagnosis and treatments explained. To call sooner prior to next visit it any questions/concerns arise. 05/09/2024 Body mass index [BMI] 29.0-29.9, adult (ICD-10 - Z68.29) #Obesity. 05/09/24: 147 pounds, BMI 29.7. She is [...] any concerns. 03/15/24: 160.7 pounds, BMI 32.5. New patient [...] with any concerns. #Hypertension. Followed by PCP. Controlled. #Anxiety and [...] Dictation was accomplished with the use of [employer] voice recognition software, prone to medical misidentifications [...] next visit it any questions/concerns arise. 06/13/2024 Overweight (ICD-10 - E66.3) #Obesity. 06/13/24: [...] Dictation was accomplished with the use of [employer] voice recognition software, prone to medical misidentifications [...] Dictation was accomplished with the use of [employer] voice recognition software, prone to medical misidentifications [...] Dictation was accomplished with the use of [employer] voice recognition software, prone to medical misidentifications [...] Essential hypertension (ICD-10 - I10) #Obesity. 04/11/24: 155.6 pounds, BMI 31.4. She is doing well on Zepbound 2.5 mg. Will increase to 5 mg on next refill. Reviewed importance of protein intake, hydration and regular exercise including resistance training. Will continue to work on lifestyle modifications and follow-up in 1 month. Follow-up sooner with any concerns. 03/15/24: 160.7 pounds, BMI 32.5. New patient [...] with any concerns. #Hypertension. Followed by PCP. Controlled. #Anxiety and [...] care coordination Case discussed with collaborating physician Rani Srinivasan who reviewed the assessment and plan. Chart, medications, labs, vital signs reviewed. Dictation was accomplished with the use of [employer] voice recognition software, prone to medical misidentifications and grammatical errors. This is unintentional and the practitioner does try to identify and correct these, but some could still be present. Please do not hesitate to contact practitioner for clarification. All questions answered to patients satisfaction. Patient verbalized understanding of diagnosis and treatments explained. To call sooner prior to next visit it any questions/concerns arise. 05/09/2024 Essential hypertension (ICD-10 - I10) #Obesity. 05/09/24: 147 pounds, BMI 29.7. She is [...] any concerns. 03/15/24: 160.7 pounds, BMI 32.5. New patient [...] with any concerns. #Hypertension. Followed by PCP. Controlled. #Anxiety and [...] Dictation was accomplished with the use of [employer] voice recognition software, prone to medical misidentifications and grammatical errors. This is unintentional and the practitioner does try to identify and correct these, but some could still be present. Please do not hesitate to contact practitioner for clarification. All questions answered to patients satisfaction. Patient verbalized understanding of diagnosis and treatments explained. To call sooner prior to next visit it any questions/concerns arise. 03/15/2024 Essential hypertension (ICD-10 - I10) #Obesity. 160.7 pounds, BMI 32.5. New patient welcomed [...] track activity level. Consider using apps like [employer], myfitnesspal, lose it, stick as needed for self-monitoring and weight management. Consider group exercises. Consider hiring a personal consultant. Regular exercise is mccurdy to sustainable health [...] counseling and psychiatry and Dr Iniguez at [facility]. We would like to cover regular topics [...] Dictation was accomplished with the use of [employer] voice recognition software, prone to medical misidentifications [...] track activity level. Consider using apps like [employer], [employer], lose it, stick as needed for self-monitoring and weight management. Consider group exercises. Consider hiring a personal consultant. Regular exercise is mccurdy to sustainable health [...] counseling and psychiatry and Dr Iniguez at [facility]. We would like to cover regular topics [...] Dictation was accomplished with the use of [employer] voice recognition software, prone to medical misidentifications and grammatical errors. This is unintentional and the practitioner does try to identify and correct these, but some could still be present. Please do not hesitate to contact practitioner for clarification. All questions answered to patients satisfaction. Patient verbalized understanding of diagnosis and treatments explained. To call sooner prior to next visit it any questions/concerns arise. 03/15/2024 Anxiety disorder, unspecified (ICD-10 - F41.9) #Obesity. 160.7 pounds, BMI 32.5. New patient welcomed [...] track activity level. Consider using apps like [employer], [employer], lose it, stick as needed for self-monitoring and weight management. Consider group exercises. Consider hiring a personal consultant. Regular exercise is mccuryd to sustainable health and prevents as a [...] counseling and psychiatry and Dr Iniguez at [facility]. We would like to cover regular topics [...] Dictation was accomplished with the use of [employer] voice recognition software, prone to medical misidentifications [...] track activity level. Consider using apps like [employer], [employer], lose it, stick as needed for self-monitoring and weight management. Consider group exercises. Consider hiring a personal consultant. Regular exercise is mccurdy to sustainable health [...] counseling and psychiatry and Dr Iniguez at [facility]. We would like to cover regular topics [...] Dictation was accomplished with the use of [employer] voice recognition software, prone to medical misidentifications and grammatical errors. This is unintentional and the practitioner does try to identify and correct these, but some could still be present. Please do not hesitate to contact practitioner for clarification. All questions answered to patients satisfaction. Patient verbalized understanding of diagnosis and treatments explained. To call sooner prior to next visit it any questions/concerns arise. 05/09/2024 Anxiety disorder, unspecified (ICD-10 - F41.9) #Obesity. 05/09/24: 147 pounds, BMI 29.7. She is [...] any concerns. 03/15/24: 160.7 pounds, BMI 32.5. New patient [...] with any concerns. #Hypertension. Followed by PCP. Controlled. #Anxiety and [...] Dictation was accomplished with the use of [employer] voice recognition software, prone to medical misidentifications [...] disorder, unspecified (ICD-10 - F41.9) #Obesity. 04/11/24: 155.6 pounds, BMI 31.4. She is doing well on Zepbound 2.5 mg. Will increase to 5 mg on next refill. Reviewed importance of protein intake, hydration and regular exercise including resistance training. Will continue to work on lifestyle modifications and follow-up in 1 month. Follow-up sooner with any concerns. 03/15/24: 160.7 pounds, BMI 32.5. New patient [...] with any concerns. #Hypertension. Followed by PCP. Controlled. #Anxiety and [...] care coordination Case discussed with collaborating physician Rani Srinivasan who reviewed the assessment and plan. Chart, medications, labs, vital signs reviewed. Dictation was accomplished with the use of [employer] voice recognition software, prone to medical misidentifications [...] Dictation was accomplished with the use of [employer] voice recognition software, prone to medical misidentifications and grammatical errors. This is unintentional and the practitioner does try to identify and correct these, but some could still be present. Please do not hesitate to contact practitioner for clarification. All questions answered to patients satisfaction. Patient verbalized understanding of diagnosis and treatments explained. To call sooner prior to next visit it any questions/concerns arise. 05/09/2024 Depression, unspecified (ICD-10 - F32.A) #Obesity. 05/09/24: 147 pounds, BMI 29.7. She is [...] any concerns. 03/15/24: 160.7 pounds, BMI 32.5. New patient [...] with any concerns. #Hypertension. Followed by PCP. Controlled. #Anxiety and [...] Dictation was accomplished with the use of [employer] voice recognition software, prone to medical misidentifications [...] Dictation was accomplished with the use of [employer] voice recognition software, prone to medical misidentifications [...] Depression, unspecified (ICD-10 - F32.A) #Obesity. 04/11/24: 155.6 pounds, BMI 31.4. She is doing well on Zepbound 2.5 mg. Will increase to 5 mg on next refill. Reviewed importance of protein intake, hydration and regular exercise including resistance training. Will continue to work on lifestyle modifications and follow-up in 1 month. Follow-up sooner with any concerns. 03/15/24: 160.7 pounds, BMI 32.5. New patient [...] with any concerns. #Hypertension. Followed by PCP. Controlled. #Anxiety and [...] care coordination Case discussed with collaborating physician Rani Srinivasan who reviewed the assessment and plan. Chart, medications, labs, vital signs reviewed. Dictation was accomplished with the use of [employer] voice recognition software, prone to medical misidentifications and grammatical errors. This is unintentional and the practitioner does try to identify and correct these, but some could still be present. Please do not hesitate to contact practitioner for clarification. All questions answered to patients satisfaction. Patient verbalized understanding of diagnosis and treatments explained. To call sooner prior to next visit it any questions/concerns arise. 03/15/2024 Depression, unspecified (ICD-10 - F32.A) #Obesity. 160.7 pounds, BMI 32.5. New patient welcomed [...] track activity level. Consider using apps like [employer], [employer], lose it, stick as needed for self-monitoring and weight management. Consider group exercises. Consider hiring a personal consultant. Regular exercise is mccurdy to sustainable health [...] counseling and psychiatry and Dr Iniguez at [facility]. We would like to cover regular topics [...] Dictation was accomplished with the use of [employer] voice recognition software, prone to medical misidentifications [...] track activity level. Consider using apps like [employer], [employer], lose it, stick as needed for self-monitoring and weight management. Consider group exercises. Consider hiring a personal consultant. Regular exercise is mccurdy to sustainable health [...] counseling and psychiatry and Dr Iniguez at [facility]. We would like to cover regular topics [...] Dictation was accomplished with the use of [employer] voice recognition software, prone to medical misidentifications and grammatical errors. This is unintentional and the practitioner does try to identify and correct these, but some could still be present. Please do not hesitate to contact practitioner for clarification. All questions answered to patients satisfaction. Patient verbalized understanding of diagnosis and treatments explained. To call sooner prior to next visit it any questions/concerns arise. 03/15/2024 Fibromyalgia (ICD-10 - M79.7) #Obesity. 160.7 pounds, BMI 32.5. New patient welcomed [...] track activity level. Consider using apps like [employer], [employer]Smart[employer], lose it, stick as needed for self-monitoring and weight management. Consider group exercises. Consider hiring a personal consultant. Regular exercise is mccurdy to sustainable health [...] counseling and psychiatry and Dr Iniguez at [facility]. We would like to cover regular topics [...] Dictation was accomplished with the use of [employer] voice recognition software, prone to medical misidentifications [...] track activity level. Consider using apps like [employer], [employer], lose it, stick as needed for self-monitoring and weight management. Consider group exercises. Consider hiring a personal consultant. Regular exercise is mccurdy to sustainable health [...] counseling and psychiatry and Dr Iniguez at [facility]. We would like to cover regular topics [...] Dictation was accomplished with the use of [employer] voice recognition software, prone to medical misidentifications [...] 04/11/2024 Fibromyalgia (ICD-10 - M79.7) #Obesity. 04/11/24: 155.6 pounds, BMI 31.4. She is doing well on Zepbound 2.5 mg. Will increase to 5 mg on next refill. Reviewed importance of protein intake, hydration and regular exercise including resistance training. Will continue to work on lifestyle modifications and follow-up in 1 month. Follow-up sooner with any concerns. 03/15/24: 160.7 pounds, BMI 32.5. New patient [...] with any concerns. #Hypertension. Followed by PCP. Controlled. #Anxiety and [...] care coordination Case discussed with collaborating physician Rani Srinivasan who reviewed the assessment and plan. Chart, medications, labs, vital signs reviewed. Dictation was accomplished with the use of [employer] voice recognition software, prone to medical misidentifications and grammatical errors. This is unintentional and the practitioner does try to identify and correct these, but some could still be present. Please do not hesitate to contact practitioner for clarification. All questions answered to patients satisfaction. Patient verbalized understanding of diagnosis and treatments explained. To call sooner prior to next visit it any questions/concerns arise. 05/09/2024 Fibromyalgia (ICD-10 - M79.7) #Obesity. 05/09/24: 147 pounds, BMI 29.7. She is [...] any concerns. 03/15/24: 160.7 pounds, BMI 32.5. New patient [...] with any concerns. #Hypertension. Followed by PCP. Controlled. #Anxiety and [...] Dictation was accomplished with the use of [employer] voice recognition software, prone to medical misidentifications [...] Dictation was accomplished with the use of [employer] voice recognition software, prone to medical misidentifications and grammatical errors. This is unintentional and the practitioner does try to identify and correct these, but some could still be present. Please do not hesitate to contact practitioner for clarification. All questions answered to patients satisfaction. Patient verbalized understanding of diagnosis and treatments explained. To call sooner prior to next visit it any questions/concerns arise. 05/09/2024 Weight loss counseling, encounter for (ICD-10 - Z71.3) #Obesity. 05/09/24: 147 pounds, BMI 29.7. She is [...] any concerns. 03/15/24: 160.7 pounds, BMI 32.5. New patient [...] with any concerns. #Hypertension. Followed by PCP. Controlled. #Anxiety and [...] Dictation was accomplished with the use of [employer] voice recognition software, prone to medical misidentifications [...] Dictation was accomplished with the use of [employer] voice recognition software, prone to medical misidentifications [...] encounter for (ICD-10 - Z71.3) #Obesity. 04/11/24: 155.6 pounds, BMI 31.4. She is doing well on Zepbound 2.5 mg. Will increase to 5 mg on next refill. Reviewed importance of protein intake, hydration and regular exercise including resistance training. Will continue to work on lifestyle modifications and follow-up in 1 month. Follow-up sooner with any concerns. 03/15/24: 160.7 pounds, BMI 32.5. New patient [...] with any concerns. #Hypertension. Followed by PCP. Controlled. #Anxiety and [...] care coordination Case discussed with collaborating physician Rani Srinivasan who reviewed the assessment and plan. Chart, medications, labs, vital signs reviewed. Dictation was accomplished with the use of [employer] voice recognition software, prone to medical misidentifications and grammatical errors. This is unintentional and the practitioner does try to identify and correct these, but some could still be present. Please do not hesitate to contact practitioner for clarification. All questions answered to patients satisfaction. Patient verbalized understanding of diagnosis and treatments explained. To call sooner prior to next visit it any questions/concerns arise. 03/15/2024 History of asthma (ICD-10 - Z87.09) #Obesity. 160.7 pounds, BMI 32.5. New patient welcomed [...] track activity level. Consider using apps like [employer], [employer], lose it, stick as needed for self-monitoring and weight management. Consider group exercises. Consider hiring a personal consultant. Regular exercise is mccurdy to sustainable health [...] counseling and psychiatry and Dr Iniguez at [employer]. We would like to cover regular topics [...] Dictation was accomplished with the use of [employer] voice recognition software, prone to medical misidentifications [...] track activity level. Consider using apps like [employer], [employer], lose it, stick as needed for self-monitoring and weight management. Consider group exercises. Consider hiring a personal consultant. Regular exercise is mccurdy to sustainable health [...] counseling and psychiatry and Dr Iniguez at [employer]. We would like to cover regular topics [...] Dictation was accomplished with the use of [employer] voice recognition software, prone to medical misidentifications [...] track activity level. Consider using apps like [employer], [employer], lose it, stick as needed for self-monitoring and weight management. Consider group exercises. Consider hiring a personal consultant. Regular exercise is mccurdy to sustainable health [...] counseling and psychiatry and Dr Iniguez at [employer]. We would like to cover regular topics [...] Dictation was accomplished with the use of [employer] voice recognition software, prone to medical misidentifications and grammatical errors. This is unintentional and the practitioner does try to identify and correct these, but some could still be present. Please do not hesitate to contact practitioner for clarification. All questions answered to patients satisfaction. Patient verbalized understanding of diagnosis and treatments explained. To call sooner prior to next visit it any questions/concerns arise. 03/15/2024 Weight loss counseling, encounter for (ICD-10 - Z71.3) #Obesity. 160.7 pounds, BMI 32.5. New patient welcomed [...] track activity level. Consider using apps like [employer], myfitnesspal, lose it, stick as needed for self-monitoring and weight management. Consider group exercises. Consider hiring a personal consultant. Regular exercise is mccurdy to sustainable health [...] counseling and psychiatry and Dr Iniguez at [employer]. We would like to cover regular topics [...] Dictation was accomplished with the use of [employer] voice recognition software, prone to medical misidentifications [...] it any questions/concerns arise. PLAN OF TREATMENT No Information Insurance Providers Payer Name Payer Address Payer Phone Subscriber Number Group Number Insured Name Patient Relationship to Insured Coverage Start Date Coverage End Date [facility] [address] [place] [address] [id number] Kristy Li Self - patient is the insured MEDICAL (GENERAL) HISTORY Medical History History ICD Code seasonal allergies hypertension hypercholesterolemia asthma weight gain/loss gallbladder disease Arthritis heart murmur anxiety depression hearing loss Surgical History Surgery Date(Month/Year) cholecystectomy 11/28/23 biliary dyskinesia raised her bladder
== END 2024-10-30 14:55 | disposition home or self-care (01) ==
LOC: HO.RHES 14:08
PROVIDERS: PCP Internal Medicine; Visit Provider Internal Medicine Rheumatology
DX: M70.61 Trochanteric bursitis, right hip (principal); M70.62 Trochanteric bursitis, left hip; M79.7 Fibromyalgia; M25.551 Pain in right hip; M25.552 Pain in left hip
CPT/HCPCS: 99214

== ENCOUNTER → 2024-10-30 14:07 | Outpatient (BNVA) | payer BC, SELFPAY | PROVIDERS: PCP Internal Medicine; Visit Provider Internal Medicine Rheumatology ==

== ENCOUNTER 2024-11-01 09:41 | Outpatient (REF) | payer BC, SELFPAY ==
--- NOTE | ~2024-11-01 | XR_ITS ---
EXAMINATION: XR BILATERAL HIPS WITH AP PELVIS CLINICAL INFORMATION: M25.551 - Pain in right hip COMPARISON: None available. TECHNIQUE: AP and frog-leg lateral views of each hip were obtained. FINDINGS: RIGHT HIP: No fracture, dislocation, or suspicious bone lesion. No significant arthropathy evident. Normal acetabular coverage. Femoral head is normal in contour without evidence of AVN. Normal soft tissues. Normal-appearing right SI joint. LEFT HIP: No fracture, dislocation, or suspicious bone lesion. No significant arthropathy evident. Normal acetabular coverage. Femoral head is normal in contour without evidence of AVN. Normal soft tissues. Normal-appearing right SI joint. XR/XR hips ZOFIA min 3V IMPRESSION: Normal radiographs bilateral hips. Electronically signed by: Lucien Judd MD 11/01/2024 10:03 AM EDT
--- OUTSIDE RECORDS SUMMARY | 2024-11-01 10:27 | XMS_ITS | Encounter Summary ---
Author Organization [facility] Address [address] [place] [address] Care Team Providers Care Curb Setter Helper Name Role Phone Tanja Larkin MD Primary Care Provider [phone] Encounter Details Date Type Department Care Team (Latest Contact Info) Description 10/29/2024 Lab Requisition [facility] - Main Lab [address] [facility] [place] [address] Yenni Sandoval MD 299 [facility] [address] [place] [phone] Encounter for gynecological examination (general) (routine) without [...] care for your loved ones. For example, rn child or elderly care for an older adult? [...] Description 11/07/2024 8:30 AM EDT Hospital Encounter [facility] Endoscopy [address] [place] [address] Danica Park MD [address] [address] 11/08/2024 8:30 AM EDT Appointment [facility] Bone Density [address] [place] [address] 11/16/2024 11:15 AM EDT Office Visit Internal Medicine - [place] [address] [phone] Tanja Larkin MD [address] [phone] 11/20/2024 11:00 AM EDT Appointment [facility] [address] [place] [address] 12/05/2024 11:20 AM EDT Office Visit [facility] - [address] [place] [phone] Lázaro Mcguire MD [address] [place] [address] 02/11/2025 9:30 AM EDT Office Visit Pulmonolgy - [place] [address] [place] [address] Abhay Coppola MD [address] [place] [address] 03/04/2025 9:10 AM EDT Office Visit Gastroenterology - [place] [address] [facility] [address] [place] [phone] Daphnie Almanza PA [address] [place] [address] documented as of this encounter Procedures Procedure [...] LAB MICROBIOLOGY METHOD 10/29/2024 3:58 PM EDT [facility] [place] [facility] Brushing/Spatula Cervix uteri structure / Unknown 10/26/2024 10/29/2024 6:20 AM EDT us Yenni Sandoval MD LAB MOLECULAR DIAGNOSTIC S ORDERABLES Final Result [facility] [address] [place] [address], [place] [phone] * Pap smear (10/26/2024 12:00 AM EDT) Interpretation Negative for intraepithelial lesion or malignancy 10/30/2024 9:00 AM EDT [facility] General Categorization Negative 10/30/2024 9:00 AM EDT [facility] Other Findings Atrophy 10/30/2024 9:00 AM EDT [facility] Specimen Adequacy Satisfactory for evaluation 10/30/2024 9:00 AM [facility] Pap Methodology Liquid Based Pap Test 10/30/2024 9:00 AM EDT [facility] Disclaimer The Pap test is a screening test which carries an inherent false negative rate. These test results should be correlated with the patient's clinical findings and history. This Pap test was processed using an automated screening system. Technical cytopathology services provided by [facility], at [address] [place] [address] (CLIA # [id number]/Selene Sutherland MD, Night Club Manager.) 10/30/2024 9:00 AM T [facility] Console Pap Interpretation Reported 10/30/2024 9:00 AM T [facility] Brushing/Spatula Cervix uteri structure / Unknown 10/26/2024 10/29/2024 6:20 AM EDT Yenni Sandoval MD LAB CYTOLOGY ORDERABLES Final Result [facility] [address] [place] [address], [place] [phone] documented in this encounter Visit Diagnoses Diagnosis Encounter for gynecological examination (general) (routine) without abnormal findings Encounter for screening mammogram for breast cancer documented in this encounter Additional Health Concerns Assessment Noted Time PHQ-9 Depression Total Score: 19 025 3:44 PM EST documented as of this encounter Care Teams Curb Setter Helper Relationship Specialty Start Date End Date Tanja Larkin MD 175 [facility] 200 [place] [address] PCP - General Internal Medicine 05/04/24 documented as of this encounter
--- OUTSIDE RECORDS SUMMARY | 2024-11-01 10:27 | XMS_ITS | Data Portability ---
Author Organization [place] [facility], All[facility] Address [address] [address] Care Team Providers Care Scientific Writer Name Role Phone JOE COOLEY Primary Care [...] audio gram No observ ation record ed. [email or web address] Not Available 03/29 10:55:50 Result Notes None recorded. Problems Name Problem SNOMED Code Status Onset Date Resolution Date Notes Provider Name and Address Organization Details Recorded Time Headache 57772742 Active 2015 Headache; Note: Date Diagnosed : 10/06/2015 9:13 AM (R51) Not Available [facility] 4 02:31:17 Bilateral earache 329137783 Active 2019 Otalgia, bilateral ; Note: Date Diagnosed : 08/28/2019 3:36 PM (H92.03) Not Available [facility] 4 02:31:28 Sensorine ural hearing loss of bilateral ears 636176675 Active 2016 Sensorine ural hearing loss, bilateral ; Note: Date Diagnosed : 7 4:34 PM (H90.3) Not Available [facility] 4 02:31:30 Allergic rhinitis caused by pollen 48479319 Active 2015 Allergic rhinitis: Pollinosi s; CMS Risk: low risk [facility] Treatment : new problem (to examiner) : no additiona l workup planned N ote: Date Diagnosed : 07/09/2014 11:57 AM (477.0) ; Start Date : 5 Allergi c rhinitis due to pollen; Note: Date Diagnosed : 08/15/2015 1:47 PM (J30.1) Not Available [facility] 4 02:31:33 Nasal congestio n 34292081 Active 2019 Nasal congestio n; Note: Date Diagnosed : 08/28/2019 3:37 PM (R09.81) Not Available [facility] 4 02:31:26 Snoring 88049782 Active 2015 Snoring; Note: Date Diagnosed : 10/06/2015 9:13 AM (R06.83) Not Available [facility] 4 02:31:32 Chronic rhinitis 19239746 Active 2015 Chronic rhinitis; Note: Date Diagnosed : 11/17/2015 4:40 PM (J31.0) Not Available [facility] 4 02:31:20 Bilateral temporoma ndibular joint pain 81001697564 243277 Active 2019 Arthralgi a of bilateral temporoma ndibular joint; Note: Date Diagnosed : 08/28/2019 3:36 PM (M26.623) Not Available [facility] 4 02:31:23 Allergic rhinitis 69926379 Active 2014 Allergic rhinitis: Due to other allergen; Note: Date Diagnosed : 08/21/2014 11:43 AM (477.8) Not Available [facility] 4 02:31:31 Mild intermitt ent asthma 049786019 Active 2016 Mild intermitt ent asthma, uncomplic ated; Note: Date Diagnosed : 7 4:21 PM (J45.20) Not Available [facility] 4 02:31:16 Fatigue 42559050 Active 2015 Other fatigue; Note: Date Diagnosed : 11/17/2015 4:18 PM (R53.83) Not Available [facility] 4 02:31:36 Abnormal auditory perceptio n 23796258 Active 2016 Other abnormal auditory perceptio ns, bilateral ; Note: Date Diagnosed : 7 4:21 PM (H93.293) Not Available [facility] 4 02:31:32 Recurrent acute sinusitis 416101619 Active 2020 Other acute recurrent sinusitis ; Note: Date Diagnosed : 09/01/2020 2:42 PM (J01.81) Not Available [facility] 4 02:31:28 Obstructi ve sleep apnea syndrome 51765857 Active 2015 Obstructi ve sleep apnea (adult) (pediatri c); Note: Date Diagnosed : 11/17/2015 4:16 PM (G47.33) Not Available [facility] 4 02:31:24 Bilateral tinnitus 05936813246 02 Active 2016 Tinnitus, bilateral ; Note: Date Diagnosed : 7 4:21 PM (H93.13) Not Available [facility] 4 02:31:26 Chronic sinusitis 39938663 Active 2023 GRISELDA MICHAELS MD [address] [place] [address], [place], [address] , [place] [facility] 4 10:30:30 Moderate persisten t asthma 327875048 Active 2023 GRISELDA MICHAELS MD 100 [facility],[place] [address], [place], [address] , [place] [facility] 4 10:30:36 Problem Notes None recorded. Procedures Surgical History Date Name Laterality Status Provider Name and Address Organization Details Recorded Time 04/25/2024 Comp Audio with Tymps - 61427 & 13456 completed BENJIE SOTO [address] [facility],[place] [address], [place], [address], [facility] - [facility] 04/25/2024 09:42:50 Imaging Results Imaging Date Name Status LastModified by Organiz ation Details LastModified Time 04/25/2024 audiogram completed [email or web address] Information n ot available 04/25/2024 10:55:50 Procedure Notes None recorded. Medical Equipment None Reported. Allergies Allergen ID Allergen Name Allergen Category Reaction Reaction Severity Criticality Documentation Date Start Date Code Code System Note Provider Name and Address Organization Details Recorded Time 52306 ibuprofen medicatio n other Not available Not available 11/08/2023 5640 RxNorm React ion: unkno wn, unspe cifie d;; Not Available [facility] 4 01:01:11 76587 codeine sulfate medicatio n other Not available Not available 11/08/2023 17310 RxNorm React ion: unkno wn, unspe cifie d;; Not Available [facility] 4 01:01:20 68269 acetamino phen / oxycodone medicatio n other Not available Not available 11/08/2023 98240 3 RxNorm React ion: unkno wn, unspe cifie d;; Not Available [facility] 4 01:01:23 Medications Name Sig Start Date [...] as directed 10/11 completed Medicati on ID: [id number] P rescribe d By Name: RUBI Silverio nd Name: azelasti ne Send Method: E-Prescr ibed Sub s Allowed: subs OK Medic ationGen ericName : azelasti ne Not Available Not Available Not Available Nasonex 50 mcg/actua tion [place] 2 spray into both nostrils 10/11 completed Medicati on ID: [id number] D uration Value: 90 Prescri bed By [...] inhalatio n 02/22 completed Medicati on ID: [id number] P marlyribe d By Name: Heydi Mann [...] nasal spray 11/16 completed Medicati on ID: [id number] Pr escribed By Name: Heydi Mcgraw rd, nd Name: Astepro Send Method: E-Prescr ibed Sub s Allowed: subs OK Speci al Instruct ion: 2 sprays intranas al bid Medi cationGe nericNam e: Astepro Not Available Not Available Not Available Flonase Allergy Relief 50 mcg/actua tion nasal spray,evaristo pension 2 puff into both nostrils 2019 active Medicati on ID: [id number] D uration Value: 30 Prescri bed By [...] History Nothing Reported. Medical History Condition Response Arthritis Y Anxiety Y Migraines Y Hypertension Y Depression Y Asthma Y Gynecological HistoryNo gynecological history recorded. Obstetrics History GPAL:G 0 P 0 0 0 0 Past Encounters Encounter ID Performer Location Encounter Start Date Encounter Closed Date Diagnosis/Indication Diagnosis SNOMED-CT Code Diagnosis ICD10 Code Diagnosis Note [id number] GRISELDA MICHAELS MD [facility] [address] [address] 04/25/2024 09:11:31 04/25/2024 10:34:58 Bilateral tinnitus 1479180710 102 H93.13 Sensorineu ral hearing loss of bilateral ears 887259375 H90.3 Audiologic al evaluation results: Right ear: [...] not maintain a hermetic seal}} Chronic sinusitis 287949 00 J32.9 Moderate p ersistent asthma 498180306 J45.40 Health Concerns Section Related Observation LastModified by Organization Detai ls LastModified Time None Recorded Concern Status LastModified by Organization Details LastModified Time None Recorded Advance Directives Directive None Recorded Payers Insurance Date Sequence Insurance Name Policy Number Policy Redman Covered Member ID Redman Member ID Guarantor Name 04/25/2024 1 GRIS: MOISÉS (PPO) [id number] Edwin Li [id number] Kristy Li Notes Date Note Type [...] and Dupixent for asthma. GRISELDA MURDOCK MD [address] [place] [address], [phone], [facility] - [facility] 04/25/2024 10:32:04 OBGyn Episode No OBEpisode recorded.
--- OUTSIDE RECORDS SUMMARY | 2024-11-01 10:27 | XMS_ITS | Encounter Summary ---
Author Organization [facility] Address [address] [place] [address] Care Team Providers Care Reading Assistant Name Role Phone Tanja Larkin MD Primary Care Provider [phone] Reason for Referral * Imaging (Routine) - Pending Review Specialty Diagnoses / Procedures Referred By Contac t Referred To Contact Radiology Diagnoses Postmenopausal state Procedures BD Bone Density DXA Axial Skeleton Tanja Larkin MD [address] [address] Phone: tel: fax: [address] [address] Phone: tel: Referral ID Status Reason Start Date Expiration Date V isits Requested Visits Authorized [id number] Pending Review 10/02/2024 10/02/2025 1 1 Reason for Visit * Reason Onset Date Comments [place]: Bone density 10/01/2024 Encounter Details Date Type Department Care Team (Late st Contact Info) Description 10/01/2024 Telephone Internal Medicine - [place] [address] [address] Tanja Larkin MD [address] [address] [place]: Bone density Social History [...] for your loved ones. For example, childcare aide or elderly care for an older adult? [...] Assessment Author No 08/21/2024 5:40 PM Kizzy Henrandez RN * Because of a physical, mental, [...] how bad it is. Please advise Cb# [phone] documented in this encounter Plan of Treatment Upcoming Encounters Date Type Department Care Team (Late st Contact Info) Description 11/07/2024 8:30 AM EDT Hospital Encounter [facility] Endoscopy [address] [place] [address] Danica Park MD [address] [address] 11/08/2024 8:30 AM EDT Appointment [facility] Bone Density [address] [place] [address] 11/16/2024 11:15 AM EDT Office Visit Internal Medicine - [place] [address] [address] Tanja Larkin MD [address] [address] 11/20/2024 11:00 AM EDT Appointment [facility] at [facility] [address] [place] [address] 12/05/2024 11:20 AM EDT Office Visit [facility] - [facility] 154 [address] [facility] 154 [place] [phone] Lázaro Mcguire MD 300 [facility] 154 [place] [address] 02/11/2025 9:30 AM EDT Office Visit Pulmonolgy - [place] 175 [facility] [address] [place] [phone] Abhay Coppola MD [address] [address] 03/04/2025 9:10 AM EDT Office Visit Gastroenterology - [place] 175 [facility] [address] [phone] Daphnie Almanza PA [address] [address] Scheduled Orders Name Type Priority Associated Diagnoses [...] documented as of this encounter Care Teams Reading Assistant Relationship Specialty Start Date End Date Tanja Larkin MD [address] [address] PCP - General Internal Medicine 05/04/24 documented as of this encounter
--- OUTSIDE RECORDS SUMMARY | 2024-11-01 10:27 | XMS_ITS ---
Author Organization [facility] Address [address] [place] [address] Care Team Providers Care Private Wealth Advisor Name Role Phone JOE COOLEY Primary Care Provider SADAF Son Unavailable [phone] Maddi Pérez Unavailable [phone] Encounters Encounter Location Date Provider Diagnosis [facility] [address] [address] 07/24/2024 Maddi Pérez PLAN OF TREATMENT No Information Progress Notes * Kristy LIDOB:1970 ( 54 yo F)Acc No.[id number]:07/24/2024 Patient:??Kristy LI Provider:??Maddi Pérez PA-C :1970?Age:54 Y?Sex:Fe male Date:07/24/2024 Address:[address] [place], [place] [address] Pcp:JOE COOLEY Subjective: * Chief Complaints: * ? * Medical History:?? Objective: Assessment: Plan: * Treatment: * Images: Billing Information: * Visit Code:?? * Procedure Codes:?? * Sign off status: Pending * Provider:??Maddi Pérez PA-C Date:??06/28
--- OUTSIDE RECORDS SUMMARY | 2024-11-01 10:28 | XMS_ITS | Encounter Summary ---
Author Organization [employer] Address [address] [place] [address] [address] [place] [address] Care Team Providers Care Wind Turbine Erector Name Role Phone Unavailable Primary Care Provider Unavailabl e Reason for Visit * Reason Onset Date Comments Extraction 03/22/2024 Encounter Details Date Type Department Care Team (Late st Contact Info) Description 03/22/2024 Telephone [facility] DENTAL [address] [place] [address] Lopez Gill BDS [address] [place] [address] Extraction Social History Tobacco Use Types Packs/Day [...]
--- OUTSIDE RECORDS SUMMARY | 2024-11-01 10:28 | XMS_ITS | Patient Health Record ---
Author Organization [facility] Address [address] [place] [address] Care Team Providers Care Visual Developer Name Role Phone JOE COOLEY Primary Care Provider SADAF Son Unavailable [phone] Maddi Pérez Unavailable [phone] ALLERGIES Allergen (clinical drug ingredient) Drug/Non Drug [...] due to excess calories (E66.09) Active confirmed 185181396 Problem Overweight (E66.3) Active confirmed 365555714 Problem Anxiety disorder, unspecified (F41.9) Active confirmed 855416314 Problem Fibromyalgia (M79.7) Active confirmed 351324237 Problem Essential hypertension (I10) Active confirmed 38220135 Problem Body mass index [BMI] 29.0-29.9, adult (Z68.29) Active confirmed 234978040 Problem Body mass index [BMI] 32.0-32.9, adult (Z68.32) Active confirmed 599575647 Problem BMI 31.0-31.9,adult (Z68.31) Active confirmed 148346714 Problem Depression, unspecified (F32.A) Active confirmed 14372796 Problem History of asthma (Z87.09) Active confirmed 122726673 VITAL SIGNS Heart Rate 80 /min 06/13/2024 Blood pressure diastolic 56 mm Hg 06/13/2024 Oximetry 99 % 06/13/2024 Height 59 in 06/13/2024 Blood pressure systolic 100 mm Hg 06/13/2024 Weight 143 lbs 06/13/2024 BMI 28.88 kg/m2 06/13/2024 Encounters Encounter Location Date Provider Diagnosis [address] [address] 04/11/2024 Maddi Pérez Other obesity due to excess calories E66.09 ; Body mass index [BMI] 32.0-32.9, adult Z68.32 ; Essential hypertension I10 ; Anxiety disorder, unspecified F41.9 ; Depression, unspecified F32.A ; Fibromyalgia M79.7 ; History of asthma Z87.09 and Weight loss counseling, encounter for Z71.3 [address] 06/05/2024 Maddi Svrcek [address] 07/24/2024 Maddi Svrcek [address] 03/15/2024 Maddi Svrcek Other obesity due to excess calories E66.09 ; Body mass index [BMI] 32.0-32.9, adult Z68.32 ; Essential hypertension I10 ; Anxiety disorder, unspecified F41.9 ; Depression, unspecified F32.A ; Fibromyalgia M79.7 ; History of asthma Z87.09 and Weight loss counseling, encounter for Z71.3 [address] 04/11/2024 Maddi Svrcek Other obesity due to excess calories E66.09 ; BMI 31.0-31.9,adult Z68.31 ; Essential hypertension I10 ; Anxiety disorder, unspecified F41.9 ; Depression, unspecified F32.A ; Fibromyalgia M79.7 and Weight loss counseling, encounter for Z71.3 [address] 05/09/2024 Maddi Svrcek Overweight E66.3 ; B jessica mass index [BMI] 29.0-29.9, adult Z68.29 ; Essential hypertension I10 ; Anxiety disorder, unspecified F41.9 ; Depression, unspecified F32.A ; Fibromyalgia M79.7 and Weight loss counseling, encounter for Z71.3 [address] 06/13/2024 Maddi Svrcek Overweight E66.3 ; B NC 28.0-28.9,adult Z68.28 ; Essential hypertension I10 ; Anxiety disorder, unspecified F41.9 ; Depression, unspecified F32.A ; Fibromyalgia M79.7 and Weight loss counseling, encounter for Z71.3 [facility] [address] 03/15/2024 Maddi Svrcek Other obesity due to excess calories E66.09 [address] 03/15/2024 Maddi Svrcek [address] [place] [address] 03/16/2024 Maddi Svrcek Other obesity due to excess calories E66.09 [address] [place] [address] 03/19/[address] [facility] [address] [place] [address] 03/21/2024 SADAF FIGUEROAT [address] [place] [address] 05/09/2024 Maddi Svrcek [address] [place] [address] 05/31/2024 Maddi Svrcek ASSESSMENTS Encounter Date Diagnosis [...] track activity level. Consider using apps like [employer], Achates Powerpal, lose it, stick as needed for self-monitoring and weight management. Consider group exercises. Consider hiring a small engine trainer. Regular exercise is mccurdy to sustainable [...] counseling and psychiatry and Dr Iniguez at [facility]. We would like to cover regular topics [...] Dictation was accomplished with the use of [employer] voice recognition software, prone to medical misidentifications [...] track activity level. Consider using apps like [employer], [employer], lose it, stick as needed for self-monitoring and weight management. Consider group exercises. Consider hiring a small engine trainer. Regular exercise is mccurdy to sustainable [...] Dictation was accomplished with the use of [employer] voice recognition software, prone to medical misidentifications [...] track activity level. Consider using apps like [employer], [employer]pal, lose it, stick as needed for self-monitoring and weight management. Consider group exercises. Consider hiring a small engine trainer. Regular exercise is mccurdy to sustainable [...] counseling and psychiatry and Dr Iniguez at [facility]. We would like to cover regular topics [...] Dictation was accomplished with the use of [employer] voice recognition software, prone to medical misidentifications [...] track activity level. Consider using apps like [employer], [employer], lose it, stick as needed for self-monitoring and weight management. Consider group exercises. Consider hiring a small engine trainer. Regular exercise is mccurdy to sustainable [...] counseling and psychiatry and Dr Iniguez at [facility]. We would like to cover regular topics [...] Dictation was accomplished with the use of [employer] voice recognition software, prone to medical misidentifications [...] Dictation was accomplished with the use of [employer] voice recognition software, prone to medical misidentifications [...] Dictation was accomplished with the use of [employer] voice recognition software, prone to medical misidentifications [...] Dictation was accomplished with the use of [employer] voice recognition software, prone to medical misidentifications [...] Dictation was accomplished with the use of [employer] voice recognition software, prone to medical misidentifications [...] Dictation was accomplished with the use of [employer] voice recognition software, prone to medical misidentifications [...] Dictation was accomplished with the use of [employer] voice recognition software, prone to medical misidentifications [...] Dictation was accomplished with the use of [employer] voice recognition software, prone to medical misidentifications [...] Dictation was accomplished with the use of [employer] voice recognition software, prone to medical misidentifications [...] Dictation was accomplished with the use of [employer] voice recognition software, prone to medical misidentifications [...] track activity level. Consider using apps like [employer], myfitnesspal, lose it, stick as needed for self-monitoring and weight management. Consider group exercises. Consider hiring a small engine trainer. Regular exercise is mccurdy to sustainable [...] counseling and psychiatry and Dr Iniguez at [facility]. We would like to cover regular topics [...] Dictation was accomplished with the use of [employer] voice recognition software, prone to medical misidentifications [...] track activity level. Consider using apps like [employer], [employer]pal, lose it, stick as needed for self-monitoring and weight management. Consider group exercises. Consider hiring a small engine trainer. Regular exercise is mccurdy to sustainable [...] counseling and psychiatry and Dr Iniguez at [facility]. We would like to cover regular topics [...] Dictation was accomplished with the use of [employer] voice recognition software, prone to medical misidentifications [...] track activity level. Consider using apps like [employer], [employer]pal, lose it, stick as needed for self-monitoring and weight management. Consider group exercises. Consider hiring a small engine trainer. Regular exercise is mccurdy to sustainable [...] counseling and psychiatry and Dr Iniguez at [facility]. We would like to cover regular topics [...] Dictation was accomplished with the use of [employer] voice recognition software, prone to medical misidentifications [...] track activity level. Consider using apps like [employer], [employer]pal, lose it, stick as needed for self-monitoring and weight management. Consider group exercises. Consider hiring a small engine trainer. Regular exercise is mccurdy to sustainable [...] counseling and psychiatry and Dr Iniguez at [facility]. We would like to cover regular topics [...] Dictation was accomplished with the use of [employer] voice recognition software, prone to medical misidentifications [...] Dictation was accomplished with the use of [employer] voice recognition software, prone to medical misidentifications [...] Dictation was accomplished with the use of [employer] voice recognition software, prone to medical misidentifications [...] Dictation was accomplished with the use of [employer] voice recognition software, prone to medical misidentifications [...] Dictation was accomplished with the use of [employer] voice recognition software, prone to medical misidentifications [...] Dictation was accomplished with the use of [employer] voice recognition software, prone to medical misidentifications [...] Dictation was accomplished with the use of [employer] voice recognition software, prone to medical misidentifications [...] track activity level. Consider using apps like [employer], [employer]pal, lose it, stick as needed for self-monitoring and weight management. Consider group exercises. Consider hiring a small engine trainer. Regular exercise is mccurdy to sustainable [...] counseling and psychiatry and Dr Iniguez at [facility]. We would like to cover regular topics [...] Dictation was accomplished with the use of [employer] voice recognition software, prone to medical misidentifications [...] Eat Fat Get Lean by Dr Awais Crobin. Self education is important in the journey [...] track activity level. Consider using apps like [employer], [employer] Powerpal, lose it, stick as needed for self-monitoring and weight management. Consider group exercises. Consider hiring a small engine trainer. Regular exercise is mccurdy to sustainable [...] counseling and psychiatry and Dr Iniguez at [facility]. We would like to cover regular topics [...] Dictation was accomplished with the use of [employer] voice recognition software, prone to medical misidentifications [...] track activity level. Consider using apps like [employer] ex[employer]ise, Achates Powerpal, lose it, stick as needed for self-monitoring and weight management. Consider group exercises. Consider hiring a small engine trainer. Regular exercise is mccurdy to sustainable [...] counseling and psychiatry and Dr Iniguez at [facility]. We would like to cover regular topics [...] Dictation was accomplished with the use of [employer] voice recognition software, prone to medical misidentifications [...] track activity level. Consider using apps like [employer], [employer]pal, lose it, stick as needed for self-monitoring and weight management. Consider group exercises. Consider hiring a small engine trainer. Regular exercise is mccurdy to sustainable [...] counseling and psychiatry and Dr Iniguez at [facility]. We would like to cover regular topics [...] Dictation was accomplished with the use of [employer] voice recognition software, prone to medical misidentifications [...] Dictation was accomplished with the use of [employer] voice recognition software, prone to medical misidentifications [...] Dictation was accomplished with the use of [employer] voice recognition software, prone to medical misidentifications [...] Dictation was accomplished with the use of [employer] voice recognition software, prone to medical misidentifications [...] Dictation was accomplished with the use of [employer] voice recognition software, prone to medical misidentifications [...] Dictation was accomplished with the use of [employer] voice recognition software, prone to medical misidentifications [...] Dictation was accomplished with the use of [employer] voice recognition software, prone to medical misidentifications [...] track activity level. Consider using apps like [employer], Ach[employer] Powerpal, lose it, stick as needed for self-monitoring and weight management. Consider group exercises. Consider hiring a small engine trainer. Regular exercise is mccurdy to sustainable [...] counseling and psychiatry and Dr Iniguez at [facility]. We would like to cover regular topics [...] Dictation was accomplished with the use of [employer] voice recognition software, prone to medical misidentifications [...] track activity level. Consider using apps like [employer], [employer]pal, lose it, stick as needed for self-monitoring and weight management. Consider group exercises. Consider hiring a small engine trainer. Regular exercise is mccurdy to sustainable [...] counseling and psychiatry and Dr Iniguez at [facility]. We would like to cover regular topics [...] Dictation was accomplished with the use of [employer] voice recognition software, prone to medical misidentifications [...] track activity level. Consider using apps like [employer], [employer]pal, lose it, stick as needed for self-monitoring and weight management. Consider group exercises. Consider hiring a small engine trainer. Regular exercise is mccurdy to sustainable [...] counseling and psychiatry and Dr Iniguez at [facility]. We would like to cover regular topics [...] Dictation was accomplished with the use of [employer] voice recognition software, prone to medical misidentifications [...] track activity level. Consider using apps like [employer], myfitnesspal, lose it, stick as needed for self-monitoring and weight management. Consider group exercises. Consider hiring a small engine trainer. Regular exercise is mccurdy to sustainable [...] counseling and psychiatry and Dr Iniguez at [facility]. We would like to cover regular topics [...] Dictation was accomplished with the use of [employer] voice recognition software, prone to medical misidentifications [...] Insured Coverage Start Date Coverage End Date [facility] [address] [place] [address] [id number] Kristy Li Self - patient is the insured MEDICAL (GENERAL) HISTORY Medical History History ICD Code seasonal allergies hypertension hypercholesterolemia asthma weight gain/loss gallbladder disease Arthritis heart murmur anxiety depression hearing loss Surgical History Surgery Date(Month/Year) cholecystectomy 11/28/23 biliary dyskinesia raised her bladder
--- OUTSIDE RECORDS SUMMARY | 2024-11-01 10:28 | XMS_ITS | Encounter Summary ---
Author Organization [employer] Address [address] [facility] [address]t [place] [address] Care Team Providers Care Ocularist Name Role Phone Unavailable Primary Care Provider Unavailabl e Reason for Visit * Reason Comments Med Refill Encounter Details Date Type Department Care Team (Late st Contact Info) Description 05/31/2024 Refill [facility] [address] [place] [address] Chet Wade DDS [address] [place] [address] Social History Tobacco Use Types Packs/Day Years [...]
--- OUTSIDE RECORDS SUMMARY | 2024-11-01 10:28 | XMS_ITS | Clinical Summary ---
Author Organization [employer] Address [address] [facility] 7t [place] [address] Care Team Providers Care Reserves Clerk Name Role Phone Unavailable Primary Care Provider [...] TABLET FOUR TIMES DAILY Active nystatin (Mycostatin) 538288 UNIT/ML suspension Take 4 mL by mouth [...] Type Department Care Team Description 09/14/2024 Telephone [facility] [address] [place] [address] Mert Giang referral for Oral Surgery from [...] Most Recently Relevant to Health Maintenance Insurance [facility]
--- OUTSIDE RECORDS SUMMARY | 2024-11-01 10:28 | XMS_ITS ---
Author Organization [facility] Address [address] [place] [address] Care Team Providers Care Account Officer Name Role Phone JOE COOLEY Primary Care Provider SADAF Son Unavailable [phone] Maddi Pérez Unavailable [phone] ALLERGIES Allergen (clinical drug ingredient) Drug/Non Drug [...] Location Date Provider Diagnosis [address] [facility] [address] [place] [address] 06/13/2024 Maddi Svrcek Overweight E66.3 ; B OH 28.0-28.9,adult Z68.28 ; Essential hypertension I10 ; [...] Dictation was accomplished with the use of [employer] voice recognition software, prone to medical misidentifications [...] Dictation was accomplished with the use of [employer] voice recognition software, prone to medical misidentifications [...] Dictation was accomplished with the use of [employer] voice recognition software, prone to medical misidentifications [...] Dictation was accomplished with the use of [employer] voice recognition software, prone to medical misidentifications [...] Dictation was accomplished with the use of [employer] voice recognition software, prone to medical misidentifications [...] Dictation was accomplished with the use of [employer] voice recognition software, prone to medical misidentifications [...] Dictation was accomplished with the use of [employer] voice recognition software, prone to medical misidentifications [...] * Kristy LIDOB:1970 ( 54 yo F)Acc No.[id number]:06/13/2024 Patient:??Kristy LI Provider:??Maddi Pérez PA-C :1970?Age:54 Y?Sex:Fe male Date:06/13/2024 Address:[address] [place], [place] [id number] Pcp:JOE COOLEY Subjective: * Chief Complaints: * [...] specialist- Dr. Umanzor ?Will be starting with dental associate ?PMH: Asthma, fibromyalgia, depression, anxiety, lung granuloma, [...] 156, tg 178, hdl 56, ldl 65 ?[facility]- therapist. Ewa Morrison- gabby, currently on [...] Dictation was accomplished with the use of [employer] voice recognition software, prone to medical misidentifications [...] * Images: Billing Information: * Visit Code:?? 88441 Office Visit, Est Pt., Level 4. * [...] specialist- Dr. Umanzor Will be starting with dental associate PMH: Asthma, fibromyalgia, depression, anxiety, lung granuloma, [...] 156, tg 178, hdl 56, ldl 65 [facility]- therapist. Ewa pierre, currently on cymbalta [...]
--- OUTSIDE RECORDS SUMMARY | 2024-11-01 10:28 | XMS_ITS | Encounter Summary ---
Author Organization [employer] Address [address] [facility] [address] [place] [address] Care Team Providers Care Casting Repairer Name Role Phone Sudarshan Hdz MD Primary [...] on filedocumented in this encounter Care Teams Casting Repairer Relationship Specialty Start Date End Date Sudarshan Hdz MD [address] [place] [id number] PCP - General Internal Medicine 11/27/19 06/30/23 documented as of this encounter
--- OUTSIDE RECORDS SUMMARY | 2024-11-01 10:28 | XMS_ITS ---
Author Organization [facility] Address [address] [place] [address] Care Team Providers Care Php Web Developer Name Role Phone JOE COOLEY Primary Care Provider SADAF Son Unavailable [phone] Maddi Pérez Unavailable [phone] Encounters Encounter Location Date Provider Diagnosis [facility] [address] [address] 06/05/2024 Maddi Pérez PLAN OF TREATMENT No Information Progress Notes * Kristy LIDOB:1970 ( 54 yo F)Acc No.[id number]:06/05/2024 Patient:??Kristy LI Provider:??Maddi Pérez PA-C :1970?Age:54 Y?Sex:Fe male Date:06/05/2024 Address:[address] [place], [place] [id number] Pcp:JOE COOLEY Subjective: * Chief Complaints: * ? * Medical History:?? Objective: Assessment: Plan: * Treatment: * Images: Billing Information: * Visit Code:?? * Procedure Codes:?? * Sign off status: Pending * Provider:??Maddi Pérez PA-C Date:??05/27
--- OUTSIDE RECORDS SUMMARY | 2024-11-01 10:28 | XMS_ITS | Encounter Summary ---
Author Organization [employer] Address [address] [facility] [address] [place] [address] Care Team Providers Care Engine Installer Name Role Phone Unavailable Primary Care Provider Unavailabl e Reason for Visit * Reason Comments Med Refill Encounter Details Date Type Department Care Team (Late st Contact Info) Description 04/10/2024 Refill [facility] [address] [place] [address] Chet Wade DDS [address] [place] [address] Social History Tobacco Use Types Packs/Day Years [...]
--- OUTSIDE RECORDS SUMMARY | 2024-11-01 10:28 | XMS_ITS | Encounter Summary ---
Author Organization [employer] Address [address] [facility] [address] [place] [address] Care Team Providers Care Director Money Name Role Phone Unavailable Primary Care Provider Unavailabl e Reason for Visit * Reason Onset Date Comments referral for Oral Surgery 09/14/2024 Encounter Details Date Type Department Care Team ([facility] st Contact Info) Description 09/14/2024 Telephone [facility] [address] [place] [address] Mert Giang [address] [place] [address] referral for Oral Surgery Social History Tobacco [...] is stating that she went to the trouble locator test desk and informed no documentation had been sent concerning patient request for referral. However documentation was sent to provider as opposed to trouble locator test desk seeing that providers provide referrals. Also sending to Jose the event she was calling patient concerning cancelled Oral Surgery appt for September. Patient called in seeking referral to go to an oral surgeon for a lesion on her tongue. Patient active requested since 03/2024 and was able to get in elsewhere sooner. Provider will prepare referral and patient will come to citrus picker after having received call from trouble locator test desk that referral is ready. Patient questioned how soon it would be ready. I was explained to patient that I did not have an official timeframe, however office will reach out to her and she can citrus picker once it is ready. Patient is [...] prepare referral and patient will come to citrus picker after having received call from trouble locator test desk that referral is ready.Patient questioned how soon it would be ready. I was explained to patient that I did not have an official timeframe, however office will reach out to her and she can citrus picker once it is ready. Patientis concerned [...]
--- OUTSIDE RECORDS SUMMARY | 2024-11-01 10:28 | XMS_ITS | Encounter Summary ---
Author Organization [employer] Address [address] [facility] [address] [place] [address] Care Team Providers Care Food Selector Name Role Phone Unavailable Primary Care Provider Unavailabl e Reason for Visit * Reason Onset Date Comments walking in 12/19/2023 Encounter Details Date Type Department Care Team (Late st Contact Info) Description 12/19/2023 Telephone [facility] [address] [place] [address] Lopez Gill BDS [address] [place], [place] [id number] walking in Social History Tobacco Use Types [...] Ordaz - 12/19/2023 12:47 PM EDT Contacted [facility] and front desk host informed if patient is looking to be [...]
--- OUTSIDE RECORDS SUMMARY | 2024-11-01 10:28 | XMS_ITS | Clinical Summary ---
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 08/24/19 22 Active ipratropium (ATROVENT) 42 mcg (0.06 %) nasal spray Administer 2 sprays into affected nostril(s) 4 (four) times a day. Active meclizine (ANTIVERT) 25 mg tablet Take 1 tablet (25 mg total) by mouth every 8 (eight) hours if needed. 07/22/19 22 Active montelukast (SINGULAIR) 10 mg tablet Take 1 tablet (10 mg total) by mouth. 08/22/19 21 Active ondansetron (ZOFRAN) 4 mg tablet Take 1 tablet (4 mg total) by mouth every 8 (eight) hours if needed for nausea. for up to 30 days. 10/17/19 21 Active triamcinolone (Nasal Allergy) 55 mcg nasal inhaler 2 sprays 1 (one) time each day. INTRANASALLY 08/18/19 21 Active BIOTIN ORAL Take 3 tablets by mouth 1 (one) time each day. Biotin 5000 MCG Tab Active CHOLECALCIFEROL , VITAMIN D3, ORAL Take 1 tablet by mouth 1 (one) time each day. Cholecalciferol (Vitamin D) 50 MCG (2000 UT) Tab Active hydroCHLOROthia zide (MICROZIDE) 12.5 mg capsule TAKE ONE CAPSULE DAILY 30 capsule 5 05/01/20 24 Active Dupixent Pen 300 mg/2 mL pen Inject 1 Syringe under the skin. Active pantoprazole (PROTONIX) 40 mg EC tablet Take 1 tablet (40 mg total) by mouth 2 (two) times a day. for 360 days. 180 each 3 05/17/20 24 025 Active plecanatide (TRULANCE) 3 mg tablet Take 1 tablet (3 mg total) by mouth 1 (one) time each day. 90 tablet 3 05/17/20 24 Active sucralfate (CARAFATE) 1 gram tablet Take 1 tablet (1 g total) by mouth 4 (four) times a day. 360 tablet 3 05/17/20 24 Active polyethylene glycol (Golytely) 236-22.74-6.74 -5.86 gram solution Take 4L by mouth once for one dose. May substitue any PEG. Starting at 6PM the night before your procedure drink 1 8oz glasses at your own pace until you complete half of the gallon. Finish 2nd half of the gallon 5 hours before your procedure. 4000 mL 07/10/19 25 Active bisacodyL (DULCOLAX) 5 mg EC tablet Take 2 tablets by mouth right before beginning bowel prep. See instructions provided by the office 2 tablet 07/10/19 25 Active atorvastatin (LIPITOR) 20 mg tablet Take 1 tablet (20 mg total) by mouth 1 (one) time each day. 04/01/20 24 Active pregabalin (LYRICA) 225 mg capsule Take 1 capsule (225 mg total) by mouth 2 (two) times a day. Active DULoxetine (CYMBALTA) [address] capsule TAKE ONE CAPSULE IN THE MORNING AND EVENING 06/06/20 24 Active Fasenra Pen 30 mg/mL auto-injector injection 12/30/19 24 Active traZODone (DESYREL) 50 mg tablet TAKE 1/2 TO 1 TABLET AT BEDTIME NEEDED FOR SLEEP 06/06/20 24 Active Zepbound 5 mg/0.5 mL injection 0.5 ML SUBCUTANEOUSLY ONE TIME PER WEEK Active methocarbamoL (ROBAXIN) 750 mg tablet TAKE ONE TABLET THREE TIMES DAILY NEEDED FOR PAIN Active hydrOXYzine HCL (ATARAX) 25 mg tablet TAKE ONE TABLET TWICE DAILY NEEDED FOR ANXIETY 04/05/20 24 Active budesonide-glyc opyr-formoterol (BREZTRI AEROSPHERE) 160-9-4.8 mcg/actuation HFA aerosol inhaler inhaler INHALE 2 PUFFS INTO THE LUNGS 2 TIMES DAILY FOR 30 DAYS. 04/10/20 24 Active lactobacillus combination no.4 (Probiotic) 3 billion cell capsule Take by mouth 2 (two) times a day. 08/28/19 21 Active cyanocobalamin (VITAMIN B-12) 1,000 mcg tablet Take 3 tablets (3,000 mcg total) by mouth 2 (two) times a day. Active multivit-min/fe rrous fumarate (MULTI VITAMIN ORAL) 0 Refills, Maintenance, 08/27/20 13:37:00 EST, Partial fill upon patient request if the prescription is for a schedule II opioid drug. 08/28/19 21 Active NON FORMULARY Ortho digestsyme Active doxycycline (VIBRAMYCIN) 100 mg capsule Take 1 capsule (100 mg total) by mouth 2 (two) times a day. 07/20/19 25 Active albuterol 2.5 mg /3 mL (0.083 %) nebulizer solution Take 3 mL (2.5 mg total) by nebulization every 6 (six) hours if needed for wheezing. 300 mL 11 08/06/19 25 026 Active albuterol 2.5 mg /3 mL (0.083 %) nebulizer solution USE ONE AMPULE USING A NEBULIZER EVERY 4 HOURS NEEDED FOR WHEEZING OR SHORTNESS OF BREATH 180 mL 08/17/19 25 Active pseudoephedrine (SUDAFED) 60 mg tablet Take 1 tablet (60 mg total) by mouth every 6 (six) hours if needed for congestion for up to 14 doses. 14 tablet 08/21/19 25 Active Ventolin HFA 90 mcg/actuation inhaler INHALE TWO PUFFS EVERY 4 HOURS NEEDED FOR COUGH OR FOR WHEEZING 18 g 2 10/03/19 25 Active Active Problems Problem Noted Date Diagnosed [...] RAMOS (obstructive sleep apnea) 10/13/2017 Overview (03/28/2024): [facility] Home Sleep Apnea Test: Date 11/22/2018; [...] Department Care Team Description 10/29/2024 Lab Requisition [facility] - Main Lab [address] [place] [phone] Yenni Sandoval MD Encounter for gynecological examination (general) (routine) without abnormal findings 10/05/2024 Telephone Pulmongy [facility] [address] [phone] Abhay Coppola MD durable medical equipment 10/01/2024 Telephone Internal Medicine [facility] [address] [phone] Tanja Larkin MD [place]: Bone density 09/13/2024 Telephone Internal Medicine [facility] [address] [phone] Tanja Larkin MD Referral 08/31/2024 8:45 AM EST Office Visit Internal Medicine [address] [phone] Arash Vee MD Tongue lesion (Primary Dx) [facility] [address] [phone] Abhay Coppola MD 08/27/2024 10:15 AM EST [facility] [address] [phone] Abhay Coppola MD Lower respiratory infection (Primary Dx); Moderate persistent asthma, unspecified whether complicated; RAMOS (obstructive sleep apnea) 08/27/2024 9:50 AM EST Office Visit Gastroenterology [facility] [address] [phone] Daphnie Almanza PA Gastroesophageal reflux disease without esophagitis (Primary Dx); Esophageal dysmotility; Pharyngeal dysphagia; Chronic constipation 08/27/2024 Telephone Gastroenterology - [place] [address] [phone] Daphnie Almanza PA 08/21/2024 5:16 PM EST - 08/22/2024 12:56 AM EST Emergency [facility] Emergency [address] [place] [address] Chronic cough (Primary Dx) Discharge Disposition: Home or Self Care 08/06/2024 9:30 AM EST Office Visit Pulmonolgy [facility] [address] [phone] Abhay Coppola MD RAMOS (obstructive sleep apnea) (Primary Dx); Moderate persistent asthma, unspecified whether complicated 08/06/2024 [facility] [address] [phone] Alma Alvarado MA DME request from Last 3 Months Immunizations Name Administration Dates Next Due Hepatitis B (Gkwzabn-H-Kqwtc , Recombivax HB-Adult) 19yo and older 11/07/2013,06/13/2013,05/09/2013 [...] from spine a few mths VAGINOSCOPY PROCEDURE: [place] COLPOSCOPY CERVIX VAG LOOP ELTRD BX CERVIX; COMMENT: hx of abnormal pap smear EYE SURGERY PROCEDURE: [place] TRABECULOPLASTY BY LASER SURGERY; COMMENT: SENG - b/l ESOPHAGOGASTRODUODENOSCOPY 06/16/2012 PROCEDURE: [place] ESOPHAGOGASTRODUODENOSCOPY TRANSORAL DIAGNOSTIC; COMMENT: normal ESOPHAGOGASTRODUODENOSCOPY 09/2018 PROCEDURE: [place] ESOPHAGOGASTRODUODENOSCOPY TRANSORAL DIAGNOSTIC KNEE SURGERY 08/2020 Right PROCEDURE: HISTORICAL KNEE SURGERY; COMMENT: arthroscopic CHOLECYSTECTOMY PROCEDURE: [place] LAPAROSCOPY SURG CHOLECYSTECTOMY Medical History Medical History Date Comments Seasonal allergies DX:Seasonal a llergies Lumbago DX:Lumbago Cervicalgia DX:Cervicalgia Esophageal reflux DX:Esophageal reflux Sciatica DX:Sciatica Solitary pulmonary nodule 06/15/2013 DX:Merari itary pulmonary nodule RAMOS (obstructive sleep apnea) 10/13/2017 DX :RAMOS (obstructive sleep apnea); COMMENT: [facility] Home Sleep Apnea Test: Date 11/22/2018; [...] your loved ones. For example, early childhood specialist or elderly care for an older [...] Description 11/07/2024 8:30 AM EDT Hospital Encounter [facility] Endoscopy [address] [place] [phone] Danica Park MD [address] [address] 11/08/2024 8:30 AM EDT Appointment [facility] Bone Density [address] [place] [phone] 11/16/2024 11:15 AM EDT Office Visit Internal Medicine - [place] [address] [phone] Tanja Larkin MD [address] [phone] 11/20/2024 11:00 AM EDT Appointment [facility] [address] [place] [phone] 12/05/2024 11:20 AM EDT Office Visit [facility] 154 [address] [facility] 154 [place] [phone] Lázaro Mcguire MD 300 [facility] 154 [place] [address] 02/11/2025 9:30 AM EDT Office Visit Pulmonolgy - [place] [address] [phone] Abhay Coppola MD [address] [address] 03/04/2025 9:10 AM EDT Office Visit Gastroenterology - [place] 175 [facility] [address] [phone] Daphnie Almanza PA 175 [facility] 200 [place] [address] Health Maintenance Due Date Last Done Comments [...] 2 VIEWS STAT 08/21/2024 5:46 PM EST [id number], RSV, FLU A AND B QUALITATIVE RT-PCR, [...] LAB MICROBIOLOGY METHOD 10/29/2024 3:58 PM EDT [facility] Brushing/Spatula Cervix uteri structure / Unknown 10/26/2024 10/29/2024 6:20 AM EDT Yenni Sandoval MD LAB MOLECULAR DIAGNOSTIC S ORDERABLES Final Result [facility] [address] [place] [address], * Pap smear (10/26/2024 12:00 AM EDT) Interpretation Negative for intraepithelial lesion or malignancy 10/30/2024 9:00 AM T [facility] General Categorization Negative 10/30/2024 9:00 AM EDT [facility] Other Findings Atrophy 10/30/2024 9:00 AM EDT [facility] Specimen Adequacy Satisfactory for evaluation 10/30/2024 9:00 AM T [facility] Pap Methodology Liquid Based Pap Test 10/30/2024 9:00 AM EDT [facility] Disclaimer The Pap test is a screening test which carries an inherent false negative rate. These test results should be correlated with the patient's clinical findings and history. This Pap test was processed using an automated screening system. Technical cytopathology services provided by [facility], at [address] [place] [address] (CLIA # [id number]/Selene Sutherland MD, [employer].) 10/30/2024 9:00 AM EDT [facility] Console Pap Interpretation Reported 10/30/2024 9:00 AM EDT [facility] Brushing/Spatula Cervix uteri structure / Unknown 10/26/2024 10/29/2024 6:20 AM EDT Yenni Sandoval MD LAB CYTOLOGY ORDERABLES Final Result Performing Organization Address [facility] Co de Phone Number [facility] [address] [place] [address], * Rubeola antibody IgG (10/18/2024 11:28 AM EDT) Rubeola IgG Positive Positive LAB CHEMISTRY METHOD 10/18/2024 1:09 PM EDT [facility] Rubeola IgG Antibody, measured 174.00 >=16.50 AU/mL LAB CHEMISTRY METHOD 10/18/2024 1:09 PM EDT [facility] Blood Venous blood specimen / Unknown Venipuncture / Unknown 10/18/2024 11:28 AM EDT 10/18/2024 11:48 AM EDT Narrative [facility] - 10/18/2024 1:09 PM EDT Interpretation >=16.5 AU/ml is considered to be consistent with Immunity Tanja Larkin MD LAB BLOOD ORDERABLES Final Res ult Performing Organization Address [facility]/ZIP Co de Phone Number [facility] [address] [place] [address], * CT Chest wo Contrast (08/21/2024 9:55 [...] Joseph MD on 08/21/2024 22:44:06 Brenna FUNEZ [facility] CT PROCEDURES Final Result * CBC auto differential (08/21/2024 9:28 PM EST) WBC 7.7 4.8 - 10.8 K/[facility] LAB HEMETOLOGY METHOD 08/21/2024 9:47 PM EST [facility] RBC 4.50 3.80 - 4.80 /[facility] LAB HEMETOLOGY METHOD 08/21/2024 9:47 PM [facility] Hemoglobin 13.6 11.5 - 16.0 g/dL LAB HEMETOLOGY METHOD 08/21/2024 9:47 PM [facility] Hematocrit 40.9 35.0 - 47.0 % LAB HEMETOLOGY METHOD 08/21/2024 9:47 PM [facility] MCV 91.9 79.0 - 98.0 FL LAB HEMETOLOGY METHOD 08/21/2024 9:47 PM [facility] MCH 30.6 27.0 - 32.0 pcg LAB HEMETOLOGY METHOD 08/21/2024 9:47 PM [facility] MCHC 33.3 32.0 - 37.0 g/dL LAB HEMETOLOGY METHOD 08/21/2024 9:47 PM [facility] RDW 13.2 11.0 - 15.0 % LAB HEMETOLOGY METHOD 08/21/2024 9:47 PM [facility] Platelets 307 130 - 400 K/mcL LAB HEMETOLOGY METHOD 08/21/2024 9:47 PM [facility] MPV 9.8 7.0 - 11.0 FL LAB HEMETOLOGY METHOD 08/21/2024 9:47 PM [facility] NRBC 0.0 <1.0 % LAB HEMETOLOGY METHOD 08/21/2024 9:47 PM [facility] NRBC Absolute 0.00 <0.10 K/mcL LAB HEMETOLOGY METHOD 08/21/2024 9:47 PM [facility] Neutrophils Relative 48.7 % LAB HEMETOLOGY METHOD 08/21/2024 9:47 PM [facility] Lymphocytes Relative 40.8 % LAB HEMETOLOGY METHOD 08/21/2024 9:47 PM [facility] Monocytes Relative 8.2 % LAB HEMETOLOGY METHOD 08/21/2024 9:47 PM [facility] Eosinophils Relative 1.4 % LAB HEMETOLOGY METHOD 08/21/2024 9:47 PM [facility] Basophils Relative 0.6 % LAB HEMETOLOGY METHOD 08/21/2024 9:47 PM [facility] Immature Granulocytes Relative 0.3 % LAB HEMETOLOGY METHOD 08/21/2024 9:47 PM [facility] Neutrophils Absolute 3.77 1.50 - 7.00 K/mcL LAB HEMETOLOGY METHOD 08/21/2024 9:47 PM [facility] Lymphocytes Absolute 3.15 1.00 - 5.00 K/mcL LAB HEMETOLOGY METHOD 08/21/2024 9:47 PM [facility] Monocytes Absolute 0.63 0.20 - 1.00 K/mcL LAB HEMETOLOGY METHOD 08/21/2024 9:47 PM EST [facility] Eosinophils Absolute 0.11 0.00 - 0.50 K/mcL LAB HEMETOLOGY METHOD 08/21/2024 9:47 PM [facility] Basophils Absolute 0.05 0.00 - 0.20 K/mcL LAB HEMETOLOGY METHOD 08/21/2024 9:47 PM [facility] Immature Granulocytes Absolute 0.02 0.00 - 0.03 K/mcL LAB HEMETOLOGY METHOD 08/21/2024 9:47 PM [facility] Blood Venous blood specimen / Unknown Venipuncture / Unknown 08/21/2024 9:28 PM EST 08/21/2024 9:41 PM EST us Brenna FUNEZ LAB BLOOD ORDERABLES Final Resul t [facility] [address] [place] [address], * Magnesium (08/21/2024 9:28 PM EST) Magnesium 2.1 1.9 - 2.6 mg/dL LAB CHEMISTRY METHOD 08/21/2024 10:10 PM [facility] Blood Venous blood specimen / Unknown Venipuncture / Unknown 08/21/2024 9:28 PM EST 08/21/2024 9:41 PM EST us Brenna FUNEZ LAB BLOOD ORDERABLES Final Resul t [facility] [address] [place] [address], * (ABNORMAL) Comprehensive metabolic panel (08/21/2024 9:28 PM EST) Sodium 143 133 - 145 mmol/L LAB CHEMISTRY METHOD 08/21/2024 10:10 PM [facility] Potassium 3.1(L) 3.5 - 5.5 mmol/L LAB CHEMISTRY METHOD 08/21/2024 10:10 PM [facility] Chloride 107 96 - 110 mmol/L LAB CHEMISTRY METHOD 08/21/2024 10:10 PM [facility] CO2 29 21 - 32 mmol/L LAB CHEMISTRY METHOD 08/21/2024 10:10 PM [facility] Anion Gap 7 3 - 11 LAB CHEMISTRY METHOD 08/21/2024 10:10 PM [facility] Glucose 105(H) 70 - 100 mg/dL LAB CHEMISTRY METHOD 08/21/2024 10:10 PM [facility] BUN 13 5 - 25 mg/dL LAB CHEMISTRY METHOD 08/21/2024 10:10 PM [facility] Creatinine 0.66 0.50 - 1.10 mg/dL LAB CHEMISTRY METHOD 08/21/2024 10:10 PM [facility] eGFR 104 >=60 mL/min/1. 73m2 LAB CHEMISTRY METHOD 08/21/2024 10:10 PM [facility] Comment:Calculation based on the??Chronic Kidney Disease Epidemiology Collaboration (CKD-EPI) equation refit??without adjustment for race. BUN/Creatinine Ratio 19.7 LAB CHEMISTRY METHOD 08/21/2024 10:10 PM [facility] Calcium 9.0 8.5 - 10.5 mg/dL LAB CHEMISTRY METHOD 08/21/2024 10:10 PM [facility] AST (SGOT) 76(H) 10 - 42 unit/L LAB CHEMISTRY METHOD 08/21/2024 10:10 PM [facility] ALT (SGPT) 161(H) 10 - 60 unit/L LAB CHEMISTRY METHOD 08/21/2024 10:10 PM [facility] Alkaline Phosphatase 135(H) 42 - 121 unit/L LAB CHEMISTRY METHOD 08/21/2024 10:10 PM [facility] Total Protein 6.6 6.0 - 8.0 g/dL LAB CHEMISTRY METHOD 08/21/2024 10:10 PM [facility] Albumin 3.7 3.2 - 5.0 g/dL LAB CHEMISTRY METHOD 08/21/2024 10:10 PM [facility] Total Bilirubin 0.8 0.0 - 1.4 mg/dL LAB CHEMISTRY METHOD 08/21/2024 10:10 PM [facility] Blood Venous blood specimen / Unknown Venipuncture / Unknown 08/21/2024 9:28 PM EST 08/21/2024 9:41 PM EST us Brenna FUNEZ LAB BLOOD ORDERABLES Final Resul t [facility] [address] [place] [address], * ECG 12 lead (08/21/2024 6:32 PM EST) Ventricular Rate ECG 73 BPM GEMUSE Atrial Rate 73 BPM GEMUSE P-R Interval 162 ms GEMUSE QRS Duration 90 ms GEMUSE Q-T Interval 404 ms GEMUSE QTc 445 ms GEMUSE P Wave Milan 39 degrees GEMUSE R [place] 1 degrees GEMUSE T [place] 14 degrees GEMUSE ECG Interpretation Normal sinus [...] 2. Bibasilar subsegmental atelectasis. Telerad DEE DEE ([id number]) -------- FINAL REPORT -------- Dictated By: Marleny Delcid Dictated Date: 08/22/2024 08:22 ET Assigned Physician: Marleny Delcid Reviewed and Electronically Signed By: Marleny Delcid Signed Date: 08/22/2024 08:23 ET Workstation ID: [id number] Transcribed By: Self Edit Transcribed Date: 08/22/2024 [...] inspiration. 2. Bibasilar subsegmental atelectasis. Telerad PA ([id number]) -------- FINAL REPORT -------- Dictated By: Marleny Delcid Dictated Date: 08/22/2024 08:22 ET Assigned Physician: Marleny Delcid Reviewed and Electronically Signed By: Marleny Delcid Signed Date: 08/22/2024 08:23 ET Workstation ID: [id number] Transcribed By: Self Edit Transcribed Date: 08/22/2024 08:22 ET Brenna FUNEZ IMG XR PROCEDURES Final Result * [id number], RSV, Influenza A and B qualitative RT-PCR (08/21/2024 3:40 PM EST) Influenza A PCR Not Detected Not Detected LAB MICROBIOLOGY METHOD 08/21/2024 4:34 PM [facility] Influenza B PCR Not Detected Not Detected LAB MICROBIOLOGY METHOD 08/21/2024 4:34 PM [facility] RSV PCR Not Detected Not Detected LAB MICROBIOLOGY METHOD 08/21/2024 4:34 PM [facility] SARS COV-2 Not Detected Not Detected LAB MICROBIOLOGY METHOD 08/21/2024 4:34 PM [facility] Swab Both anterior nares / Unknown Non-blood Collection / Unknown 08/21/2024 3:40 PM EST 08/21/2024 3:52 PM EST Narrative [facility] - 08/21/2024 4:34 PM EST Disclaimer: ??Testing was performed using the [employer] GeneXpert Xpress SARS-CoV-2 _Flu_RSV PLUS PCR assay. [...] for Healthcare providers can be found at https://www.fda.gov/media/488646/download. ?? Fact sheet for Healthcare patients can be found at https://www.fda.gov/media/502337/download. Pankaj Medrano MD LAB MICROBIOLOGY - GENERA L ORDERABLES Final Result Performing Organization Address City/State/[facility] Co de Phone Number [facility] ([facility]) [facility] [address] [place] [address], * COLONOSCOPY Anesthesia - [facility]; [facility] ENDOSCOPY (07/24/2024 8:04 AM EST) Anatomical Region Laterality Modality Endoscopy 07/24/2024 7:48 AM EST Impressions 07/24/2024 8:05 AM EST - Internal hemorrhoids. ? - The examination was otherwise normal. ? - No specimens collected. Recommendation: ?- Discharge patient to home. ? - Repeat colonoscopy in 10 years for surveillance. Narrative 07/24/2024 8:05 AM EST [facility] GI Patient Name: Kristy Li Procedure Date: [...] verified by the physician, the nurse, the shackler ? and the histopathology technician in the pre-procedure area in the [...] history of colonic polyps CPT copyright 2020 [employer]. All rights reserved. The codes documented in this report are preliminary and upon mine car mechanic review may be revised to meet current compliance requirements. Danica Park MD 07/24/2024 8:05:30 AM This report has been signed electronically.Danica Park MD Number of Addenda: 0 Note Initiated On: 07/24/2024 7:48 AM Scope Withdrawal Time: 0 hours 6 minutes 20 seconds Scope In: 7:53:45 AM Scope Out: 8:04:47 AM ? Endoscopy Department at [facility] - [address] [place] [address], ? [place] [address] Procedure Note Danica Park MD - 07/24/2024 [facility] GI Patient Name: Kristy Li Procedure Date: [...] the physician, the nurse, theanesthetist and the histopathology technician in the pre-procedure area in the [...] history of colonic polyps CPT copyright 2020 [employer]. All rights reserved. The codes documented in this report are preliminary and upon mine car mechanic reviewmay be revised to meet current compliance requirements. Danica Park MD 07/24/2024 8:05:30 AM This report has been signed electronically.Danica Park MD Number of Addenda: 0 Note Initiated On: 07/24/2024 7:48 AM Scope Withdrawal Time: 0 hours 6 minutes 20 seconds Scope In: 7:53:45 AM Scope Out: 8:04:47 AM Endoscopy Department at [facility] - [address] [place] [phone] IMPRESSION: - Internal hemorrhoids. - The examination was otherwise normal. - No specimens collected. Recommendation: - Discharge patient to home. - Repeat colonoscopy in 10 years forsurveillance. us Danica Park MD GI~PROCEDURE ORDERABLES Fin al Result * Lipid panel with reflex to direct LDL (06/18/2024 8:50 AM EST) Cholesterol 104 0 - 200 mg/dL LAB CHEMISTRY METHOD 06/18/2024 10:27 AM [facility] Triglycerides 112 0 - 150 mg/dL LAB CHEMISTRY METHOD 06/18/2024 10:27 AM EST [facility] HDL 45 >=40 mg/dL LAB CHEMISTRY METHOD 06/18/2024 10:27 AM [facility] LDL Calculated 37 0 - 100 mg/dL LAB CHEMISTRY METHOD 06/18/2024 10:27 AM [facility] VLDL Cholesterol Oliverio 22.4 mg/dL LAB CHEMISTRY METHOD 06/18/2024 10:27 AM [facility] Non HDL Chol. (LDL+VLDL) 59 <145 mg/dL LAB CHEMISTRY METHOD 06/18/2024 10:27 AM EST [facility] Chol/HDL Ratio 2.3 0.0 - 4.4 LAB CHEMISTRY METHOD 06/18/2024 10:27 AM EST [facility] Blood Venous blood specimen / Unknown Venipuncture / Unknown 06/18/2024 8:50 AM EST 06/18/2024 8:50 AM EST us Arash Vee MD LAB BLOOD ORDERABLES Final Resul t [facility] ([facility]) [facility] [address] [place] [address], * MAG SCREENING DIGITAL (11/18/2023 11:39 AM EDT) Anatomical Region Laterality Modality Mammography 11/18/2023 10:1 4 AM EDT Narrative 11/18/2023 11:39 AM EDT [facility] Diagnostic Imaging Department [address] [place] [address] Patient: ??KRISTY LI ?/Age/Sex: 1970 - 53 - F Unit#: ??[id number] ? Location/Status: ??SPDIMAM/REG CLI ? Mnemonic/Ordering Site: ??DIGSC/SPMAM Ordering Physician: ??YENNI RM MD Mag Screening Digital - 11/18/23 - 1038 Report Status:Signed EXAM: [facility] Screening Digital EXAM DATE AND TIME: 11/18/2023 10:39 AM HISTORY: ??Screening. COMPARISON: ??11/15/22, 11/14/21, 11/08/20 TECHNIQUE: Bilateral digital breast tomosynthesis was performed in the CC and MLO projections. Computer aided detection with [employer] 3D 3.1 was employed. TISSUE DENSITY: c. [...] Procedure Note Marleny Delcid MD - 02/13/2024 [facility] Diagnostic Imaging Department [address] [place] [address] Patient: KRISTY LI/Age/Sex: 1970 - 53 - F Unit#: [id number] Location/Status: [facility] CLI Mnemonic/Ordering Site: [facility] Ordering Physician: YENNI RM MD Mag Screening Digital - 11/18/23 - 1038 Report Status:Signed EXAM: Mag Screening Digital EXAM DATE AND TIME: 11/18/2023 10:39 AM HISTORY: Screening. COMPARISON: 11/15/22, 11/14/21, 11/08/20 TECHNIQUE: Bilateral digital breast tomosynthesis was performed in the CCand MLO projections. Computer aided detection with [employer] 3D 3.1was employed. TISSUE DENSITY: c. The [...] Sign date/Time: 11/18/23 1139 Yenni Sandoval MD IMG BI PROCEDURES Final Result * Hepatitis C Screening (05/17/2022) Hepatitis C Screening Abstracted Historical Provider HEALTH MAINTENANCE Final Result from Last 3 Months or Most Recently Relevant to Health Maintenance Insurance [facility] MEDICARE Care Teams Dedicated Truck Driver Relationship Specialty Start Date End Date Tanja Larkin MD [address] [id number] PCP - General Internal Medicine 05/04/24
== END 2024-11-01 09:42 | disposition home or self-care (01) ==
LOC: HO.HMGCX 09:41
PROVIDERS: PCP Internal Medicine; Visit Provider Internal Medicine Rheumatology
DX: M25.551 Pain in right hip (principal); M25.552 Pain in left hip
CPT/HCPCS: 73522

== ENCOUNTER → 2024-11-01 09:44 | Outpatient (BNV) | payer BC, SELFPAY | PROVIDERS: PCP Internal Medicine; Visit Provider Radiology Diagnostic Radiology | DX: M25.551 Pain in right hip (principal) | CPT/HCPCS: 73522 ==

== ENCOUNTER 2024-12-20 08:00 | Outpatient (RCR) | payer BC, SELFPAY ==
--- NOTE | 2024-11-20 09:15 | MHC.PT.EP ---
[facility] [place] Office [place] Office [place] Office [address] Lula Ambrose [address] [phone] F: [phone] F: [phone] F: [phone] F: [phone] Physical Therapy Plan of Care Date of Evaluation: 11/20/24 Date of Surgery: Diagnosis: greater trochanteric bursitis of both hips. Assessment: Patient is a 54 year old R handed female who presents with s/s consistent with greater trochanteric bursitis of both hips, bilateral hip pain. She does not work and is fairly sedentary at this time. Patient past medical history includes fibromyalgia, anxiety, depression, CTS, GERD and OA. Current impairments include pain, posture, ROM, strength, activity tolerance and functional mobility. Functional limitations include decreased ability to walk, stand, sit and perform most standing household or community activities during the day. Patient is motivated with good rehab potential. Skilled PT will address impairments and functional limitations in order to achieve goals. Frequency and Duration: The patient will be seen 2x/week for 5 weeks Short Term Goals: I with HEP - 2 weeks AROM hip ER to 35 on R - 3 weeks Able to walk/stand > 10 minutes without increased pain - 3 weeks Custodial Goals: LEFS 24/80 - 5 weeks Hip ER 40 on R - 5 weeks LE strength 4+/5 grossly - 5 weeks hip flexion 110 on R - 5 weeks Able to walk/ stand > 20 minutes without increased pain - 5 weeks Treatment Plan: Modalities to reduce pain, spasms and effusion. Manual therapy to restore motion and function. Therapeutic exercise to improve strength and flexibility. Neuromuscular re-education for posture and balance. Therapeutic activities to return to functional activities of daily living. Electronically signed by: Mariusz Chapman, PT Please sign and return to therapist. Thank you for your referral.
--- NOTE | 2025-01-04 08:19 | MHC.PT.DC ---
[facility] [place] Office [place] Office [place] Office [address] Lula Ambrose [address] [phone] F: [phone] F: [phone] F: [phone] F: [phone] Physical Therapy Discharge Report Diagnosis: greater trochanteric bursitis of both hips. Date of Surgery: Date of Evaluation: 11/20/24 Date of Discharge: Treatments to Date: 8 Cancellations to Date: No Shows to Date: Discharge Status: Improved Function Independent with HEP Discharge Summary: 12/20/24: pt has been feeling better overall with skilled PT. no adverse reactions. she is I with HEP. going on vacation then scheduled for TKA. we will d/c to HEP at this time. hip ER AROM 40 on R, LEFS 8/12/18; Pt jony all exs. PT knee pain > hip pain. Pt has 1 remaining vist. Pt goes on vacation [place]. 12/11/24: pt with reduced s/s overall. progressing well with skilled PT. improved activity tolerance and less pain. 12/06/24: pt has been progressing well with skilled PT. no adverse reactions. limited at times by knee pain but we have been able to accommodate. improving tolerance to hip ROM and strength ex. 12/04; Pt performing HEP. ITB TTP with rolling pin. Pt has many issues at this time. 11/29/24: pt has been feeling a bit better with less pain. progressed ROM and hip strength today. continue to progress as tolerated. 11/27; Pt fatigued with ip exs. Pt tender with rolling ITB and TPR's. Pt also dimitri for a MRI for c/s tonight. Patient is a 54 year old R handed female who presents with s/s consistent with greater trochanteric bursitis of both hips, bilateral hip pain. She does not work and is fairly sedentary at this time. Patient past medical history includes fibromyalgia, anxiety, depression, CTS, GERD and OA. Current impairments include pain, posture, ROM, strength, activity tolerance and functional mobility. Functional limitations include decreased ability to walk, stand, sit and perform most standing household or community activities during the day. Patient is motivated with good rehab potential. Skilled PT will address impairments and functional limitations in order to achieve goals. Electronically signed by: Mariusz Chapman, PT Please sign and return to therapist. Thank you for your referral.
== END 2025-01-04 08:20 | disposition home or self-care (01) ==
LOC: HO.PTCHIC 08:00
PROVIDERS: PCP Internal Medicine; Visit Provider Internal Medicine Rheumatology
DX: M70.61 Trochanteric bursitis, right hip (principal); M70.62 Trochanteric bursitis, left hip; M79.7 Fibromyalgia
CPT/HCPCS: 97110; 97140; 97162

== ENCOUNTER 2025-01-23 14:02 | Outpatient (AMB) | payer BC, MEDICARE, SELFPAY ==
--- OUTSIDE RECORDS SUMMARY | 2024-07-24 05:30 | XMS_ITS ---
Author Organization [facility] [address] Address [address] [place] [address] Care Team Providers Care Ship Manager Name Role Phone JOE COOLEY Primary Care Provider Unavailabl SADAF Varner Unavailable [phone] Maddi Pérez Unavailable [phone] Encounters Encounter Location Date Provider Diagnosis [facility] [address] [address] 07/24/2024 Maddi Pérez Plan Of Treatment No Information Progress Notes * Kristy LIDOB:1970 ( 54 yo F)Acc No.[id number]:07/24/2024 Patient: Narinder CariSOCRATESNicky Kristy Provider: Lucie Pérez PA-C :1970 A ge:54 Y S ex:Female Date:07/24/2024 Address:[address] [place], [place] [phone] Pcp:JOE COOLEY Subjective: * Chief Complaints: * * Medical History: Objective: * Vitals: Assessment: Plan: * Treatment: * Images: Billing Information: * Visit Code: * Procedure Codes: * Electronic signature of Maddi Pérez PA-C on 01/23/2025 at 02:43 PM EDT Sign off status: Pending * Provider: Lucie Pérez PA-C Date: 07/24/2024 Generated for Savi ng/Faroshang/eTransmitting on: 0 01/23/2025 02:43 PM EDT
--- OUTSIDE RECORDS SUMMARY | 2025-01-23 14:43 | XMS_ITS ---
Author Name [facility] Organization Unknown Encounters Encounter Type Encounter Reason Primary Diagnosis Location Date Emergency G E R D IS ACTING UP , ABD PAIN EPIGASTRIC PAIN [facility]) 12/26/2022 Care Team Organization Name Specialty Phone Email Start Date End Da te [facility]) PHYSICIAN NO Primary Care 12/26/2022 02/13/2024 [facility]) NO PHYSICIAN Primary Care 12/25/2022 12/26/2022 [facility] Termed, PROVIDER Primary Care 05/04/202201/25
--- OUTSIDE RECORDS SUMMARY | 2025-01-23 14:43 | XMS_ITS | Clinical Summary ---
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 Immunizations Immunization Administration Dates Next Due Influenza, Injectable, MDCK, [...] Panel 1970 SDOH Screening 1970 Sigmoidoscopy 1970 Disability Screening 1970 Alcohol/Substance Use Screening 1981 Hepatitis C Screening 1987 Pap Smear 1990 Cervical Cancer Screening 1999 HPV/Cotest 1999 Pneumococcal Vaccine: 50+ Years (2 of 2 - PCV) 10/26/2018 10/26/2017 Dental Oral Exam 12/17/2022 06/17/2022 COVID-19 Vaccine (7 - 2024-25 season) 2024 03/22/2023, 05/09/2022, 09/29/2021, Additional history exists Dental Prophylaxis 10/13/2024 04/13/2024, 06/17/2022 Influenza Vaccine (#1) 2025 , 03/20/2023, 03/02/2022, Additional history exists Dental X-Ray: Bitewings 04/14/2025 04/13/2024, 06/17 Tobacco Screening 04/20/2025 04/20/2024 DTaP/Tdap/Td Vaccines (3 - Td or Tdap) 05/25/2025 05/25/2015, 01/28/2010 Mammogram 11/20/2026 11/20/2024, 11/20/2024 Dental X-Ray: Full Mouth 04/14/2027 04/13/2024 RSV Patients and Patients Aged 60 years or older (1 - 1-dose 75+ series) 02/04/2044 Hepatitis B Vaccines Completed 11/07/2013, 06/13/2013, 05/09/2013 Zoster Vaccines Completed 05/20/2023, 03/20/2023 HIB Vaccines Aged Out No longer eligi [...] Most Recently Relevant to Health Maintenance Insurance [facility]
--- OUTSIDE RECORDS SUMMARY | 2025-01-23 14:44 | XMS_ITS | Clinical Summary ---
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 360 tablet 3 05/17/20 24 Active pregabalin (LYRICA) 225 mg capsule [...] BEDTIME NEEDED FOR SLEEP 06/06/20 24 Active methocarbamoL (ROBAXIN) 750 mg tablet TAKE [...] for a schedule II opioid drug. 08/28/19 Active NON FORMULARY Ortho digestsyme Active albuterol 2.5 mg /3 mL (0.083 %) nebulizer solution Take 3 mL (2.5 mg total) by nebulization every 6 (six) hours if needed for wheezing. 300 mL 11 08/06/19 25 026 Active albuterol 2.5 mg /3 mL (0.083 %) nebulizer solution USE ONE AMPULE USING A NEBULIZER EVERY 4 HOURS NEEDED FOR WHEEZING OR SHORTNESS OF BREATH 180 mL 08/17/19 25 Active Ventolin HFA 90 mcg/actuation inhaler INHALE TWO PUFFS EVERY 4 HOURS NEEDED FOR COUGH OR FOR WHEEZING 18 g 2 10/03/19 25 Active Restasis 0.05 % ophthalmic emulsion Administer 1 drop into both eyes 2 (two) times a day. Active alendronate (FOSAMAX) 70 mg tablet Take 1 tablet (70 mg total) by mouth every 7 (seven) days. Take in the morning with a full glass of water, on an empty stomach, and do not take anything else by mouth or lie down for the next 30 min. 12 each 3 11/17/19 25 Active calcium carbonate-vitam in D3 600 mg-10 mcg (400 unit) capsule Take 1 capsule by mouth 2 (two) times a day. 180 each 2 11/17/19 25 Active atorvastatin (LIPITOR) 20 mg tablet Take 1 tablet (20 mg total) by mouth 1 (one) time each day. 90 tablet 3 11/17/19 25 Active magnesium oxide 400 mg magnesium capsule Take 1 capsule by mouth at bedtime. 90 capsule 3 11/17/19 25 Active tirzepatide, weight loss, (ZEPBOUND) 5 mg/0.5 mL injectionIndica tions:Obesity (BMI 30.0-34.9) Inject 0.5 mL (5 mg total) under the skin every 7 (seven) days. 2 mL 3 11/17/19 25 Active dilTIAZem CD (CARDIZEM CD) 120 mg 24 hr capsule Take 1 capsule (120 mg total) by mouth 1 (one) time each day. 90 each 3 12/06/19 25 026 Active Active Problems Problem Noted Date Diagnosed Date Class 1 obesity with body ma ss index (BMI) of 30.0 to 30.9 in adult 05/29/2024 Seasonal allergies 03/28/2024 Hypertension 09/28/2023 Overview (03/28/2024): Last Assessment & Plan: Blood pressure is mildly elevated. I will start low-dose hydrochlorothiazide. Assessment & Plan (12/05/2024 12:49 PM EDT): Will discontinue hydrochlorothiazide. Will add diltiazem CD120 mg daily. Biliary dyskinesia 07/25/2023 Fibromyalgia 03/02/2022 Anxiety and [...] similar. Will arrange exercise echocardiogram stress test. Assessment & Plan (12/05/2024 12:49 PM EDT): Mostly from respiratory conditions. Did reasonably well with stress test. Mild persistent asthma without complication 09/25 RAMOS (obstructive sleep apnea) 10/13/2017 Overview (03/28/2024): [facility] Home Sleep Apnea Test: Date 11/22/2018; Wt 143#; BMI 28; BRISA 8, AI 1; HI 8; Unclassified apneas 1; Obstructive apneas 1; Central apneas 1; Mixed apneas 0; hypopneas 49; average oxygen saturation 94% (lowest 76% without saturations <88% for 5% or more of study) - Obstructive Sleep Apnea - mild; mostly hypopneas; without sleep related hypoventilation by 2018 home polysomnogram. Cervical radiculitis 02/01/2017 Solitary pulmonary nodule 06/15/2013 Pulmonary granuloma (CMS/HCC V24, CMS/HCC V28) 1 Radiculitis, lumbosacral 09/23/2010 GERD (gastroesophageal reflux disease) 0 Encounters Date Type Department Care Team Description 12/25/2024 Telephone [facility] [address] [place] [address] Provider, Not In System 12/05/2024 11:20 AM EDT Office Visit [facility] [address] [place] [phone] Lázaro Mcguire MD Shortness of breath (Primary Dx); Murmur; Hypertension, unspecified type 11/30/2024 Telephone [facility] [address] [place] [address] Tanja Larkin MD Medical Records 11/28/2024 5:39 PM EDT - 11/28/2024 11:59 PM EDT Hospital Encounter Radiology Department - [place] [address] [place] [address] Radiculopathy, cervical region Discharge Disposition: Home or Self Care 11/20/2024 10:43 AM EDT - 11/20/2024 11:59 PM EDT [facility] [address] [place] [phone] Encounter for screening mammogram for breast cancer Discharge Disposition: Home or Self Care 11/16/2024 11:15 AM EDT Office Visit Internal Medicine - [place] [address] [facility] [address] [place] [phone] Tanja Larkin MD Mixed hyperlipidemia (Primary Dx); Primary hypertension; Obesity (BMI 30.0-34.9); Fibromyalgia 11/08/2024 8:26 AM EDT - 11/08/2024 11:59 PM EDT Hospital Encounter [facility] Bone Density [address] [place] [phone] Postmenopausal state Discharge Disposition: Home or Self Care 10/29/2024 Lab Requisition [facility] [address] [facility] [place] [phone] Yenni Sandoval MD Encounter for gynecological examination (general) (routine) without abnormal findings from Last 3 Months Immunizations Name Administration Dates Next Due Hepatitis B ([id number] , Recombivax HB-Adult) 19yo and older 11/07/2013,06/13/2013,05/09/2013 [...] from spine a few mths VAGINOSCOPY PROCEDURE: TN COLPOSCOPY CERVIX VAG LOOP ELTRD BX CERVIX; COMMENT: hx of abnormal pap smear EYE SURGERY PROCEDURE: TN TRABECULOPLASTY BY LASER SURGERY; COMMENT: LASIK - b/l ESOPHAGOGASTRODUODENOSCOPY 06/16/2012 PROCEDURE: TN ESOPHAGOGASTRODUODENOSCOPY TRANSORAL DIAGNOSTIC; COMMENT: normal ESOPHAGOGASTRODUODENOSCOPY 09/2018 PROCEDURE: TN ESOPHAGOGASTRODUODENOSCOPY TRANSORAL DIAGNOSTIC KNEE SURGERY 08/2020 Right PROCEDURE: HISTORICAL KNEE SURGERY; COMMENT: arthroscopic CHOLECYSTECTOMY PROCEDURE: TN LAPAROSCOPY SURG CHOLECYSTECTOMY Medical History Medical History Date Comments Seasonal allergies DX:Seasonal a llergies Lumbago DX:Lumbago Cervicalgia DX:Cervicalgia Esophageal reflux DX:Esophageal reflux Sciatica DX:Sciatica Solitary pulmonary nodule 06/15/2013 DX:Merari itary pulmonary nodule RAMOS (obstructive sleep apnea) 10/13/2017 DX :RAMOS (obstructive sleep apnea); COMMENT: [facility] Home Sleep Apnea Test: Date 11/22/2018; [...] Maternal Grandmother Diabetes Mother Heart attack Mother Breast cancer Mother's Sister Cervical cancer Mother's side 1 Great gra ndmother Diabetes Mother's side 2 Cataracts Paternal Grandmother Glaucoma Paternal Grandmother Relation Name Status Comments Aunt Brother 1 Alive mentally challtirso nged Brother 2 Alive asthma,bipolar disorder Father Alive Emphysema, stro ke Father's side Maternal Grandfather Maternal Grandmother Breast Ca, Alzheimer's dx Mother Alive HTN, arthritis, CAD, Seizure dx, Anxiety/Depression, DM Mother's Sister Alive Mother's side 1 Mother's side 2 Paternal [...] care for your loved ones. For example, housekeeper child care or elderly care for an older adult? [...] Physical Abuse 07/24/2024 Verbal Abuse 07/24/2024 Comments No Sex and Gender Information Value Date Recorded Sex Assigned at Female 05/01/2024 8:39 AM EST Legal Sex Female 5:29 PM EST Gender Identity Female 05/01/2024 8:39 AM EST Sexual Orientation Straight 08/21/2024 5: 33 PM EST Obstetrics History Para Term AB IAB SAB Ectopic Multiple Livin g Live Births 1 Last Filed Vital Signs Vital Sign Reading Time Taken Comments Blood Pressure 122/80 12/05/2024 11:12 AM EDT Pulse 96 12/05/2024 11:12 AM EDT Temperature 36.6 C (97.8 F) 11/16/2024 11:10 AM EDT Respiratory Rate 18 08/27/2024 10:21 AM EST Oxygen Saturation 96% 12/05/2024 11:12 AM EDT Inhaled Oxygen Concentration - - Weight 70.3 kg (155 lb) 12/05/2024 11:12 AM EDT Height 149.9 cm (4' 11.02 ) 12/05/2024 11:12 AM EDT Body Mass Index 31.29 12/05/2024 11:12 AM EDT Plan of Treatment Upcoming Encounters Date Type Department Care Team (Late st Contact Info) Description 02/05/2025 12:30 PM EDT Ancillary Procedure [facility] [address] [place] [phone] 02/11/2025 9:30 AM EDT Office Visit Pulmonolgy - [place] [address] [facility] [address] [place] [phone] Abhay Coppola MD [address] [address] 03/04/2025 9:10 AM EDT Office Visit Gastroenterology - [place] [address] [phone] Daphnie Almanza PA [address] [address] 04/05/2025 11:30 AM EDT Office Visit Internal Medicine - [place] [address] [phone] Tanja Larkin MD [address] [phone] Health Maintenance Due Date Last Done Comments Pneumococcal Vaccine: 50+ Years (2 of 2 - PCV) 10/26/2018 10/26/2017 HIV Screening 06/05/2022 COVID-19 Vaccine ( season) 2024 03/22/2023, 05/09/2022, 10/08/2021, Additional history exists Influenza Vaccine (#1) 2025 , 03/20/2023, 03/02/2022, Additional history exists DTaP,Tdap,and Td Vaccines (3 - Td or Tdap) 05/30/2025 05/30/2015, 01/28/2010 Social Influencers of Health Screening 06/11/2025 06/11/2024 Hypertension/CHF/CAD Annual BMP Blood Test 11/01/2025 11/01/2024, 08/21/2024, 06/18/2024, Additional history exists Breast Cancer Screening 11/20/2026 11/21/19, 11/18/2023, 11/15/2022, Additional history exists Cholesterol Screening (Lipid Panel) 06/18/2029 06/18/2024, 03/01/2024, 03/01/2024 Cervical Cancer Screening: HPV 10/26/2029 10/26/2024 Colorectal Cancer Screening: Colonoscopy 07/24/2034 07/24/2024, 05/29/2019 Osteoporosis Screening (Bone Density Screening) 11/08/2034 11/08/2024 Hepatitis B Vaccines Completed 11/07/2013, 06/13/2013, 05/09/2013 Hepatitis C Screening Completed 05/17/2022 Zoster Vaccines Completed 05/20/2023, 03/20/2023 Depression Screening Completed 08/29/2024 HIB Vaccines Aged Out No longer eligi [...] Procedure Name Priority Date/Time Associated Diagnosis Comments MR CERVICAL SPINE WO CONTRAST Routine 11/28/2024 6:20 PM EDT Radiculopathy, cervical region MG MAMMO DIGITAL SCREENING W TINO BILAT Routine 11/20/2024 11:17 AM EDT Encounter for screening mammogram for breast cancer BD BONE DENSITY DXA AXIAL SKELETON Routine 11/08/2024 9:19 AM EDT Postmenopausal state HEMOGLOBIN A1C Routine 11/06/2024 11:15 AM EDT Hyperglycemia BASIC METABOLIC PANEL Routine 11/01/2024 11:46 AM EDT Hypertension, unspecified type PAP SMEAR Routine 10/26/2024 12:00 AM EDT Encounter for gynecological examination (general) (routine) without abnormal findings HPV WITH REFLEX GENOTYPE Routine 10/26/2024 12:00 AM EDT Encounter for gynecological examination (general) (routine) without abnormal findings COLONOSCOPY Routine 07/24/2024 8:04 AM EST Hx of colonic polyps LIPID PANEL WITH REFLEX TO DIRECT LDL Routine 06/18/2024 8:50 AM EST Primary hypertension Pure hypercholesterolemia Mild persistent asthma without complication HM HEPATITIS C SCREENING Routine 05/17/2022 from Last 3 Months or Most Recently Relevant to Health Maintenance Results * MR Cervical Spine wo Contrast (11/28/2024 6:20 PM EDT) Anatomical Region Laterality Modality C-spine, Spine Magnetic Resonan ce 11/30/2024 12:0 3 AM EDT Narrative 11/30/2024 12:10 AM EDT MRI of the cervical spine without intravenous contrast. HISTORY: Neck pain. Examination was performed on 1.5 Maria C magnet without administration of intravenous contrast. Examination is somewhat limited due to motion artifact mostly affecting STIR sagittal as well as axial images. Comparison with prior studies, latest from 03/12/2021. Cerebellar tonsils are normally positioned. Vertebral bodies are maintained in height. There is mild straightening of the usual cervical lordosis probably due to muscle spasm. At C2-3 level there is minimal bulging of the disc. No focal disc herniation spinal cord or nerve root compression. At C3-4 level there is mild bulging of the disc and mild hypertrophy of the facet and uncovertebral joints. There is mild narrowing of the C4 neural foramina. There is no spinal cord compression. At C4-5 level disc is decreased in height and T2 signal. There is arm disc osteophyte complex. There is hypertrophy of the facet and uncovertebral joints, left more than right. There is no obvious nerve root compression. There is no spinal cord compression. At C5-6 level disc is significantly decreased in height and T2 signal. There is disc osteophyte complex with narrowing of the anterior subarachnoid space. There are hypertrophic degenerative changes in the facet joints. There is narrowing of the lateral recesses and C6 neural foramina. There is possible compression of the C6 nerve roots. At C6-7 level disc is decreased in height and T2 signal. There is arm diffuse bulging of the disc and marginal osteophytes. No focal disc herniation spinal stenosis or nerve root compression. C7-T1 level is unremarkable. Spinal cord was visualized without evidence of focal signal abnormalities. Perivertebral soft tissues appear to be unremarkable. CONCLUSIONS: Limited by motion artifact examination. Multilevel bony and discs degenerative changes without evidence of focal disc herniation or spinal stenosis. No spinal cord compression or focal signal abnormalities within the spinal cord. Narrowing of the lateral recesses and neural foramina at multiple levels with possible compression of the C6 nerve roots. Suggestion of muscle spasm. Please see details in the report. -------- FINAL REPORT -------- Dictated By: Aarti Hansen Dictated Date: 11/30/2024 00:03 ET Assigned Physician: Aarti Hansen Reviewed and Electronically Signed By: Aarti Hansen Signed Date: 11/30/2024 00:10 ET Workstation ID: [id number] Transcribed By: Self Edit Transcribed Date: 11/30/2024 00:03 ET Procedure Note Aarti Hansen MD - 11/30/2024 MRI of the cervical spine without intravenous contrast. HISTORY: Neck pain. Examination was performed on 1.5 Maria C magnet without administration ofintravenous contrast. Examination is somewhat limited due to motionartifact mostly affecting STIR sagittal as well as axial images.Comparison with prior studies, latest from 03/12/2021. Cerebellar tonsils are normally positioned. Vertebral bodies aremaintained in height. There is mild straightening of the usual cervicallordosis probably due to muscle spasm. At C2-3 level there is minimal bulging of the disc. No focal discherniation spinal cord or nerve root compression. At C3-4 level there is mild bulging of the disc and mild hypertrophy ofthe facet and uncovertebral joints. There is mild narrowing of the C9ivawuo foramina. There is no spinal cord compression. At C4-5 level disc is decreased in height and T2 signal. There is arm discosteophyte complex. There is hypertrophy of the facet and uncovertebraljoints, left more than right. There is no obvious nerve root compression.There is no spinal cord compression. At C5-6 level disc is significantly decreased in height and T2 signal.There is disc osteophyte complex with narrowing of the anteriorsubarachnoid space. There are hypertrophic degenerative changes in thefacet joints. There is narrowing of the lateral recesses and C6 neuralforamina. There is possible compression of the C6 nerve roots. At C6-7 level disc is decreased in height and T2 signal. There is armdiffuse bulging of the disc and marginal osteophytes. No focal discherniation spinal stenosis or nerve root compression. C7-T1 level is unremarkable. Spinal cord was visualized without evidence of focal signalabnormalities. Perivertebral soft tissues appear to be unremarkable. CONCLUSIONS: Limited by motion artifact examination. Multilevel bony anddiscs degenerative changes without evidence of focal disc herniation orspinal stenosis. No spinal cord compression or focal signal abnormalitieswithin the spinal cord. Narrowing of the lateral recesses and neuralforamina at multiple levels with possible compression of the C6 nerveroots. Suggestion of muscle spasm. Please see details in the report. -------- FINAL REPORT -------- Dictated By: Aarti Hansen Dictated Date: 11/30/2024 00:03 ET Assigned Physician: Aarti Hansen Reviewed and Electronically Signed By: Aarti Hansen Signed Date: 11/30/2024 00:10 ET Workstation ID: [id number] Transcribed By: Self Edit Transcribed Date: 11/30/2024 00:03 ET Lori Nelson NP IMG MRI PROCEDURES Final Result * MG Mammo Digital Screening w Tino bilat (11/20/2024 11:17 AM EDT) Anatomical Region Laterality Modality Breast Bilateral Mammography 11/20/2024 11:1 6 AM EDT Impressions 11/20/2024 11:19 AM EDT No mammographic evidence of malignancy. A negative mammogram in the presence of a clinically suspicious palpable abnormality does not preclude the possibility of malignancy or alter the indications for biopsy. PQRI CPT II 3342F Code 95965, 27947 PQRI 225 CPT II 7025F TISSUE DENSITY: There are scattered areas of fibroglandular density. (BI-RADS category B) IMPRESSION: Benign. BI-RADS CATEGORY: 2 - BENIGN RECOMMENDATION: Screening bilateral mammogram is recommended in 1 year. Mammo Location: [facility], [address] [place] [address] -------- FINAL REPORT -------- Dictated By: Joseph Chaudhary Dictated Date: 11/20/2024 11:16 ET Assigned Physician: Joseph Chaudhary Reviewed and Electronically Signed By: Joseph Chaudhary Signed Date: 11/20/2024 11:19 ET Workstation ID: [id number] Transcribed By: Self Edit Transcribed Date: 11/20/2024 11:16 ET Narrative 11/20/2024 11:19 AM EDT CLINICAL: The patient is a 54 years Female presenting for routine screening mammography. COMPARISON: Most recently 11/18/2023 and most remotely 04/16/2017. TECHNIQUE: Full-field digital mammography of the breasts bilaterally consisting of tomosynthesis in MLO and CC projection is performed in the [employer] 2000-D unit. Computer aided detection utilizing the iCAD system was utilized. FINDINGS: The breasts are again seen to be composed of a combination of fatty and fibroglandular elements. A few scattered benign calcifications bilaterally are stable. There is no suspicious cluster of microcalcifications, mass, or area of architectural distortion. There is no skin thickening or nipple retraction. Procedure Note Joseph Chaudhary MD - 11/20/2024 CLINICAL: The patient is a 54 years Female presenting for routinescreening mammography. COMPARISON: Most recently 11/18/2023 and most remotely 04/16/2017. TECHNIQUE: Full-field digital mammography of the breasts bilaterallyconsisting of tomosynthesis in MLO and CC projection is performed in the[employer] 2000-D unit. Computer aided detection utilizing the Orateystem was utilized. FINDINGS: The breasts are again seen to be composed of a combination offatty and fibroglandular elements. A few scattered benign calcificationsbilaterally are stable. There is no suspicious cluster ofmicrocalcifications, mass, or area of architectural distortion. There isno skin thickening or nipple retraction. IMPRESSION: No mammographic evidence of malignancy. A negative mammogram in the presence of a clinically suspicious palpableabnormality does not preclude the possibility of malignancy or alter theindications for biopsy. PQRI CPT II 3342F Code 68107, 07288 PQRI 225 CPT II 7025F TISSUE DENSITY: There are scattered areas of fibroglandular density.(BI-RADS category B) IMPRESSION: Benign. BI-RADS CATEGORY: 2 - BENIGN RECOMMENDATION: Screening bilateral mammogram is recommended in 1 year. Mammo Location: [facility], [address] [place] [phone] -------- FINAL REPORT -------- Dictated By: Joseph Chaudhary Dictated Date: 11/20/2024 11:16 ET Assigned Physician: Joseph Chaudhary Reviewed and Electronically Signed By: Joseph Chaudhary Signed Date: 11/20/2024 11:19 ET Workstation ID: [id number] Transcribed By: Self Edit Transcribed Date: 11/20/2024 11:16 ET us Self Referral Sppl IMG BI PROCEDURES Final Resul t * BD Bone Density DXA Axial Skeleton (11/08/2024 9:19 AM EDT) Anatomical Region Laterality Modality Wrist, Hip, L-spine Bone Densito metry 11/08/2024 11:5 5 AM EDT Impressions 11/08/2024 11:56 AM EDT 1. Osteoporosis. 2. FRAX analysis yields a 10-year probability of major osteoporotic fracture of 7.4% and a 10-year probability of hip fracture of 0.9%. Code 66418 -------- FINAL REPORT -------- Dictated By: Joseph Chaudhary Dictated Date: 11/08/2024 11:55 ET Assigned Physician: Joseph Chaudhary Reviewed and Electronically Signed By: Joseph Chaudhary Signed Date: 11/08/2024 11:56 ET Workstation ID: [id number] Transcribed By: Self Edit Transcribed Date: 11/08/2024 11:55 ET Narrative 11/08/2024 11:56 AM EDT HISTORY: The patient is a 54-year-old postmenopausal female with clinical concern for metabolic bone disease. FINDINGS: Dual energy x-ray absorptiometry of the lumbar spine and femurs is performed. The mean bone mineral density at L1-2 is 0.843 gm/cm2 which is 72% of that of young normals and 79% of that of age matched controls. This yields a T-score of -2.7 and a Z-score of -1.9 which is diagnostic of osteoporosis. The mean bone mineral density of the femurs bilaterally is 0.886 gm/cm2 which is 88% of that of young normals and 95% of that of age matched controls. This yields a T-score of -1.0 and a Z-score of -0.3 and there is therefore no evidence of osteoporosis or osteopenia here. However, the T-score of the right femoral neck is -1.9 and that of the left femoral neck is -1.8 which is diagnostic of osteopenia. Procedure Note Joseph Chaudhary MD - 11/08/2024 HISTORY: The patient is a 54-year-old postmenopausal female with clinicalconcern for metabolic bone disease. FINDINGS: Dual energy x-ray absorptiometry of the lumbar spine and femursis performed. The mean bone mineral density at L1-2 is 0.843 gm/cm2 whichis 72% of that of young normals and 79% of that of age matched controls.This yields a T-score of -2.7 and a Z-score of -1.9 which is diagnostic ofosteoporosis. The mean bone mineral density of the femurs bilaterally is 0.886 gm/cn7fidpz is 88% of that of young normals and 95% of that of age matchedcontrols. This yields a T-score of -1.0 and a Z-score of -0.3 and thereis therefore no evidence of osteoporosis or osteopenia here. However, theT-score of the right femoral neck is -1.9 and that of the left femoralneck is -1.8 which is diagnostic of osteopenia. IMPRESSION: 1. Osteoporosis. 2. FRAX analysis yields a 10-year probability of major osteoporoticfracture of 7.4% and a 10-year probability of hip fracture of 0.9%. Code 67721 -------- FINAL REPORT -------- Dictated By: Joseph Chaudhary Dictated Date: 11/08/2024 11:55 ET Assigned Physician: Joseph Chaudhary Reviewed and Electronically Signed By: Joseph Chaudhary Signed Date: 11/08/2024 11:56 ET Workstation ID: [id number] Transcribed By: Self Edit Transcribed Date: 11/08/2024 11:55 ET Tanja Larkin MD IMG DXA PROCEDURES Final Resul t * Hemoglobin A1c (11/06/2024 11:15 AM EDT) [facility] Hemoglobin A1C 5.5 <6.5 % LAB CHEMISTRY METHOD 11/06/2024 10:20 PM EDT [facility] Mean Bld Glu Estim. 111 mg/dL LAB CHEMISTRY METHOD 11/06/2024 10:20 PM EDT [facility] Blood Venous blood specimen / Unknown Venipuncture / Unknown 11/06/2024 11:15 AM EDT 11/06/2024 12:41 PM EDT Tanja Larkin MD LAB BLOOD ORDERABLES Final Res ult [facility] [address] [place] [address], * (ABNORMAL) Basic metabolic panel (11/01/2024 11:46 AM EDT) [facility] Sodium 137 133 - 145 mmol/L LAB CHEMISTRY METHOD 11/01/2024 1:40 PM EDT [facility] Potassium 3.8 3.5 - 5.5 mmol/L LAB CHEMISTRY METHOD 11/01/2024 1:40 PM T [facility] Chloride 105 96 - 110 mmol/L LAB CHEMISTRY METHOD 11/01/2024 1:40 PM [facility] [facility] LAB CO2 24 21 - 32 mmol/L LAB CHEMISTRY METHOD 11/01/2024 1:40 PM [facility] Anion Gap 8 3 - 11 LAB CHEMISTRY METHOD 11/01/2024 1:40 PM T [facility] Glucose 204(H) 70 - 100 mg/dL LAB CHEMISTRY METHOD 11/01/2024 1:40 PM [facility] BUN 16 5 - 25 mg/dL LAB CHEMISTRY METHOD 11/01/2024 1:40 PM [facility] Creatinine 0.76 0.50 - 1.10 mg/dL LAB CHEMISTRY METHOD 11/01/2024 1:40 PM [facility] eGFR 93 >=60 mL/min/1. 73m2 LAB CHEMISTRY METHOD 11/01/2024 1:40 PM [facility] Comment:Calculation based on the Chronic Kidney Disease Epidemiology Collaboration (CKD-EPI) equation refit without adjustment for race. BUN/Creatinine Ratio 21.1 LAB CHEMISTRY METHOD 11/01/2024 1:40 PM [facility] Calcium 8.9 8.5 - 10.5 mg/dL LAB CHEMISTRY METHOD 11/01/2024 1:40 PM [facility] Blood Venous blood specimen / Unknown Venipuncture / Unknown 11/01/2024 11:46 AM EDT 11/01/2024 12:37 PM EDT us Marycarmen Georges NP LAB BLOOD ORDERABLES Final Resu lt [facility] [address] [place] [address], * HPV with reflex genotype (10/26/2024 12:00 AM EDT) HPV Negative Negative LAB MICROBIOLOGY METHOD 10/29/2024 3:58 PM EDT [facility] Brushing/Spatula Cervix uteri structure / Unknown 10/26/2024 10/29/2024 6:20 AM EDT us Yenni Sandoval MD LAB MOLECULAR DIAGNOSTIC S ORDERABLES Final Result [facility] [address] [place] [address], * Pap smear (10/26/2024 12:00 AM EDT) Interpretation Negative for intraepithelial lesion or malignancy 10/30/2024 9:00 AM EDT [facility] General Categorization [facility] Other Findings Atrophy 10/30/2024 9:00 AM [facility] Specimen Adequacy Satisfactory for evaluation 10/30/2024 9:00 AM [facility] Pap Methodology Liquid Based Pap Test 10/30/2024 9:00 AM EDT [facility] Disclaimer The Pap test is a screening test which carries an inherent false negative rate. These test results should be correlated with the patient's clinical findings and history. This Pap test was processed using an automated screening system. Technical cytopathology services provided by [facility], at [address] [place] [address] (CLIA # [id number]/Selene Sutherland MD, Erector Operator.) 10/30/2024 9:00 AM [facility] Console Pap Interpretation Reported 10/30/2024 9:00 AM [facility] Brushing/Spatula Cervix uteri structure / Unknown 10/26/2024 10/29/2024 6:20 AM EDT Yenni Sandoval MD LAB CYTOLOGY ORDERABLES Final Result [facility] ([facility]) [facility] [address] [place] [address], * COLONOSCOPY Anesthesia - MAC; [facility] ENDOSCOPY (07/24/2024 8:04 AM EST) Anatomical Region Laterality Modality Endoscopy 07/24/2024 7:48 AM EST Impressions 07/24/2024 8:05 AM EST - Internal hemorrhoids. - The examination was otherwise normal. - No specimens collected. Recommendation: - Discharge patient to home. - Repeat colonoscopy in 10 years for surveillance. Narrative 07/24/2024 8:[address] [facility] Patient Name: Kristy iL Procedure Date: 07/24/2024 7:48 AM Date of : 1970 Age: 54 Room: ROOM 17 Gender: Female Note Status: Finalized Attending MD: Danica Park MD, Procedure Date No Time: 07/24/2024 Procedure: Colonoscopy Indications: High risk colon cancer surveillance: Personal history of colonic polyps Providers: Danica Park MD Referring MD: Danica Park MD Medicines: Monitored Anesthesia Care Complications: No immediate complications. Estimated Blood Loss: Estimated blood loss: none. Procedure: Pre-Anesthesia Assessment: - Prior to the procedure, a History and Physical was performed, and patient medications and allergies were reviewed. The patient is competent. The risks and benefits of the procedure and the sedation options and risks were discussed with the patient. All questions were answered and informed consent was obtained. Patient identification and proposed procedure were verified by the physician, the nurse, the air pollution engineer and the cnc service technician in the pre-procedure area in the endoscopy suite. Mental Status Examination: alert and oriented. Airway Examination: normal oropharyngeal airway and neck mobility. Respiratory Examination: clear to auscultation. CV Examination: normal. Prophylactic Antibiotics: The patient does not require prophylactic antibiotics. Prior Anticoagulants: The patient has taken no anticoagulant or antiplatelet agents. ASA Grade Assessment: II - A patient with mild systemic disease. After reviewing the risks and [...] monitored throughout the procedure. The physical status of the patient was re-assessed after the procedure. After I obtained informed consent, the scope was passed under direct vision. Throughout the procedure, the patient's blood pressure, pulse, and oxygen saturations were monitored continuously. The Olympus Colonoscope was introduced through the anus and advanced to the cecum, identified by appendiceal orifice and ileocecal valve. The colonoscopy was performed without difficulty. The patient tolerated the procedure well. The quality of the bowel preparation was excellent. Findings: The perianal and digital rectal examinations were normal. Internal hemorrhoids were found during retroflexion. The hemorrhoids were Grade I (internal hemorrhoids that do not prolapse). The exam was otherwise without abnormality. Procedure Code(s): --- Professional --- G0105, Colorectal cancer screening; colonoscopy on individual at high risk Diagnosis Code(s): --- Professional --- Z86.010, Personal history of colonic polyps CPT copyright 2020 [employer]. All rights reserved. The codes documented in this report are preliminary and upon metal framer review may be revised to meet current compliance requirements. Danica Park MD 07/24/2024 8:05:30 AM This report has been signed electronically.Danica Park MD Number of Addenda: 0 Note Initiated On: 07/24/2024 7:48 AM Scope Withdrawal Time: 0 hours 6 minutes 20 seconds Scope In: 7:53:45 AM Scope Out: 8:04:47 AM Endoscopy Department at [facility] - [address] [place] [id number] Procedure Note Danica Park MD - 07/24/2024 [facility] Patient Name: Kristy Li Procedure Date: [...] the physician, the nurse, theanesthetist and the cnc service technician in the pre-procedure area in the [...] history of colonic polyps CPT copyright 2020 [employer]. All rights reserved. The codes documented in this report are preliminary and upon metal framer reviewmay be revised to meet current compliance requirements. Danica Park MD 07/24/2024 8:05:30 AM This report has been signed electronically.Danica Park MD Number of Addenda: 0 Note Initiated On: 07/24/2024 7:48 AM Scope Withdrawal Time: 0 hours 6 minutes 20 seconds Scope In: 7:53:45 AM Scope Out: 8:04:47 AM Endoscopy Department at [facility] - [address] [place] [phone] IMPRESSION: - Internal hemorrhoids. - The examination was otherwise normal. - No specimens collected. Recommendation: - Discharge patient to home. - Repeat colonoscopy in 10 years forsurveillance. Danica Park MD GI~PROCEDURE ORDERABLES Fin al Result * Lipid panel with reflex to direct LDL (06/18/2024 8:50 AM EST) Cholesterol 104 0 - 200 mg/dL LAB CHEMISTRY METHOD 06/18/2024 10:27 AM [facility] Triglycerides 112 0 - 150 mg/dL LAB CHEMISTRY METHOD 06/18/2024 10:27 AM [facility] HDL 45 >=40 mg/dL LAB CHEMISTRY METHOD 06/18/2024 10:27 AM [facility] LDL Calculated 37 0 - 100 mg/dL LAB CHEMISTRY METHOD 06/18/2024 10:27 AM [facility] VLDL Cholesterol Oliverio 22.4 mg/dL LAB CHEMISTRY METHOD 06/18/2024 10:27 AM [facility] Non HDL Chol. (LDL+VLDL) 59 <145 mg/dL LAB CHEMISTRY METHOD 06/18/2024 10:27 AM EST [facility] Chol/HDL Ratio 2.3 0.0 - 4.4 LAB CHEMISTRY METHOD 06/18/2024 10:27 AM EST [facility] Blood Venous blood specimen / Unknown Venipuncture / Unknown 06/18/2024 8:50 AM EST 06/18/2024 8:50 AM EST Arash Vee MD LAB BLOOD ORDERABLES Final Resul t [facility] ([facility]) [facility] [address] [place] [address], [place] [phone] * Hepatitis C Screening (05/17/2022) Pathologist formerly [facility] Hepatitis C Screening Abstracted Historical Provider HEALTH MAINTENANCE Final Result from Last 3 Months or Most Recently Relevant to Health Maintenance Insurance [facility] MEDICARE Care Teams Head Machinist Relationship Specialty Start Date End Date Tanja Larkin MD [address] [place] [phone] PCP - General Internal Medicine 05/04/24
--- OUTSIDE RECORDS SUMMARY | 2025-01-23 14:44 | XMS_ITS | Clinical Summary ---
Author Organization [facility] Address [address] [place] [phone] Phone Care Team Providers Care Hospital Plan Administrator Name Role Phone Carlos Gonsales MD Primary Care Provider [phone] Social History Tobacco Use Types Packs/Day Years Used Date Smoking Tobacco: Never Assessed Education Answer Date Recorded Are you interested in more education? Not on giselle e 10/22/2022 Are you concerned about learning? Not on file 10/22/2022 No 10/22/2022 No 10/22/2022 Digital Access Answer Date Recorded No 11/23/2022 No 11/23/2022 Reliable internet access at home? Not on file 11/23/2022 Device with a working camera? Not on file Comments Unknown Sex and Gender Information Value Date Recorded Sex Assigned at Not on file Legal Sex Female 2:20 PM EST Gender Identity Not on file Sexual Orientation Not on file Plan of Treatment Not on file Medical Devices Not on file Insurance [place]UE [place] OUT STATE PPO OUT [facility] PPO OUT [facility] PPO BLUE [place] OUT OF STATE PPO [facility] OUT OF STATE PPO [facility] OUT OF STATE PPO OUT [facility] [place] [address] [place] [address] PPO [employer] OUT OF STATE PPO Care Teams Hospital Plan Administrator Relationship Specialty Start Date End Date Carlos Gonsales MD [address] [place] [address] PCP - General Internal Medicine 08/14/21 Additional Source Comments The information contained in this document represents components of the legal health record. It is not the complete legal health record.[facility]
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
== END 2025-01-23 15:30 | disposition home or self-care (01) ==
LOC: HO.HSM 14:02
PROVIDERS: PCP Internal Medicine; Referring Provider Internal Medicine; Visit Provider Registered Nurse
DX: M79.7 Fibromyalgia (principal); R42 Dizziness and giddiness; M50.90 Cervical disc disorder, unspecified, unspecified cervical region
CPT/HCPCS: 99214

== ENCOUNTER 2025-02-05 07:58 | Outpatient (AMB) | payer BC, SELFPAY ==
--- OUTSIDE RECORDS SUMMARY | 2024-07-24 05:30 | XMS_ITS ---
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 Name Role Phone JOE COOLEY Primary Care Provider Unavailabl SADAF Varner Unavailable [phone] Maddi Pérez Unavailable [phone] Encounters Encounter Location Date Provider Diagnosis [facility] [address] [address] 07/24/2024 Maddi Pérez Plan Of Treatment No Information Progress Notes * Kristy LIDOB:1970 ( 55 yo F)Acc No.[id number]:07/24/2024 Patient: Narinder CariSOCRATESNicky Kristy Provider: Lucie Pérez PA-C :1970 A ge:54 Y S ex:Female Date:07/24/2024 Address:[address] [place], [place] [phone] Pcp:JOE COOLEY Subjective: * Chief Complaints: * * Medical History: Objective: * Vitals: Assessment: Plan: * Treatment: * Images: Billing Information: * Visit Code: * Procedure Codes: * Electronic signature of Maddi Pérez PA-C on 02/05/2025 at 07:59 AM EDT Sign off status: Pending * Provider: Lucie Pérez PA-C Date: 07/24/2024 Generated for Savi ng/Faroshang/eTransmitting on: 0 02/05/2025 07:59 AM EDT
--- OUTSIDE RECORDS SUMMARY | 2025-02-05 07:59 | XMS_ITS | Clinical Summary ---
Author Organization [employer] Address [address] [place] [address] [address] [place] [address] Care Team Providers Care Health Sanitarian Name Role Phone Unavailable Primary Care Provider [...] TABLET FOUR TIMES DAILY Active nystatin (Mycostatin) 411950 UNIT/ML suspension Take 4 mL by mouth [...] Most Recently Relevant to Health Maintenance Insurance [facility]
--- OUTSIDE RECORDS SUMMARY | 2025-02-05 08:00 | XMS_ITS | Clinical Summary ---
Author Organization [facility] Address [address] [place] [address] Phone Care Team Providers Care Glaze Handler Name Role Phone Carlos Gonsales MD Primary Care Provider [phone] Social History Tobacco Use Types Packs/Day Years [...] Medical Devices Not on file Insurance BLUE [place] OUT STATE PPO OUT [facility] PPO OUT [facility] PPO BLUE [place] OUT OF STATE PPO [facility] OUT OF STATE PPO [facility] OUT OF STATE PPO OUT [facility] [place] [address] [place] [address] PPO [employer] [place] OUT OF STATE PPO Care Teams Glaze Handler Relationship Specialty Start Date End Date Carlos Gonsales MD [address] [place] [address] PCP - General Internal Medicine 08/14/21 Additional Source Comments The information contained in this document represents components of the legal health record. It is not the complete legal health record.[facility]
--- OUTSIDE RECORDS SUMMARY | 2025-02-05 08:00 | XMS_ITS | Clinical Summary ---
Author Organization [facility] Address [address] [place] [phone] Phone Care Team Providers Care Battery Vent Plug Inserter Name Role Phone Tanja Larkin MD Primary Care Provider [phone] Allergies Active Allergy Reactions Criticality Noted Date [...] times a day. 360 tablet 3 Active pregabalin (LYRICA) 225 mg capsule Take 1 capsule (225 mg total) by mouth 2 (two) times a day. Active DULoxetine (CYMBALTA) [address] capsule TAKE ONE CAPSULE IN THE MORNING AND EVENING Active Fasenra Pen 30 mg/mL auto-injector injection Active traZODone (DESYREL) 50 mg tablet TAKE 1/2 TO 1 TABLET AT BEDTIME NEEDED FOR SLEEP Active methocarbamoL (ROBAXIN) 750 mg tablet TAKE [...] drug. Active NON FORMULARY Ortho digestsyme Active albuterol 2.5 mg /3 mL (0.083 %) nebulizer solution Take 3 mL (2.5 mg total) by nebulization every 6 (six) hours if needed for wheezing. 300 mL 11 2025 Active albuterol 2.5 mg /3 mL (0.083 %) nebulizer solution USE ONE AMPULE USING A NEBULIZER EVERY 4 HOURS NEEDED FOR WHEEZING OR SHORTNESS OF BREATH 180 mL Active Restasis 0.05 % ophthalmic emulsion Administer [...] for the next 30 min. 12 each Active calcium carbonate-mago min D3 600 mg-10 mcg (400 unit) capsule Take 1 capsule by mouth 2 (two) times a day. 180 each Active atorvastatin (LIPITOR) 20 mg tablet Take 1 tablet (20 mg total) by mouth 1 (one) time each day. 90 tablet Active magnesium oxide 400 mg magnesium capsule Take 1 capsule by mouth at bedtime. 90 capsule Active tirzepatide, weight loss, (ZEPBOUND) 5 mg/0.5 mL injectionIndic ations:Obesity (BMI 30.0-34.9) Inject 0.5 mL (5 mg total) under the skin every 7 (seven) days. 2 mL Active dilTIAZem CD (CARDIZEM CD) 120 mg 24 hr capsule Take 1 capsule (120 mg total) by mouth 1 (one) time each day. 90 each 3 025 2025 Active Ventolin HFA 90 mcg/actuation inhaler INHALE [...] RAMOS (obstructive sleep apnea) 10/13/2017 Overview (03/28/2024): [facility] Home Sleep Apnea Test: Date 11/22/2018; [...] Type Department Care Team Description 12/25/2024 Telephone [facility] [address] [place] [address] Provider, Not In System 12/05/2024 11:20 AM EDT Office Visit [facility] [address] [place] [address] Lázaro Mcguire MD Shortness of breath (Primary Dx); Murmur; Hypertension, unspecified type 11/30/2024 Telephone [facility] [address] [place] [address] Tanja Larkin MD Medical Records 11/28/2024 5:39 PM EDT - 11/28/2024 11:59 PM EDT Hospital Encounter Radiology Department - [address] [phone] Radiculopathy, cervical region Discharge Disposition: Home or Self Care 11/20/2024 10:43 AM EDT - 11/20/2024 11:59 PM EDT Hospital Encounter [facility] [address] [place] [phone] Encounter for screening mammogram for breast cancer Discharge Disposition: Home or Self Care 11/16/2024 11:15 AM EDT Office Visit Internal Medicine - [place] [address] [phone] Tanja Larkin MD Mixed hyperlipidemia (Primary Dx); Primary hypertension; Obesity (BMI 30.0-34.9); Fibromyalgia 11/08/2024 8:26 AM EDT - 11/08/2024 11:59 PM EDT Hospital Encounter [facility] Density [address] [place] [phone] Postmenopausal state Discharge Disposition: Home or Self Care from Last 3 Months Immunizations Name Administration Dates Next Due Hepatitis B (Xhtoyer-P-Ptnrp , Recombivax HB-Adult) 19yo and older 11/07/2013,06/13/2013,05/09/2013 [...] from spine a few mths VAGINOSCOPY PROCEDURE: [place] COLPOSCOPY CERVIX VAG LOOP ELTRD BX CERVIX; COMMENT: hx of abnormal pap smear EYE SURGERY PROCEDURE: [place] TRABECULOPLASTY BY LASER SURGERY; COMMENT: LASIK - b/l ESOPHAGOGASTRODUODENOSCOPY 06/16/2012 PROCEDURE: [place] ESOPHAGOGASTRODUODENOSCOPY TRANSORAL DIAGNOSTIC; COMMENT: normal ESOPHAGOGASTRODUODENOSCOPY 09/2018 PROCEDURE: [place] ESOPHAGOGASTRODUODENOSCOPY TRANSORAL DIAGNOSTIC KNEE SURGERY 08/2020 Right PROCEDURE: HISTORICAL KNEE SURGERY; COMMENT: arthroscopic CHOLECYSTECTOMY PROCEDURE: [place] LAPAROSCOPY SURG CHOLECYSTECTOMY Medical History Medical History Date Comments Seasonal allergies DX:Seasonal a llergies Lumbago DX:Lumbago Cervicalgia DX:Cervicalgia Esophageal reflux DX:Esophageal reflux Sciatica DX:Sciatica Solitary pulmonary nodule 06/15/2013 DX:Merari itary pulmonary nodule RAMOS (obstructive sleep apnea) 10/13/2017 DX :RAMOS (obstructive sleep apnea); COMMENT: [facility] Home Sleep Apnea Test: Date 11/22/2018; [...] Comments Aunt Brother 1 Alive mentally challtirso ngbrianda Brother 2 Alive asthma,bipolar disorder Father Alive [...] care for your loved ones. For example, manager child or elderly care for an older [...] Description 02/05/2025 12:30 PM EDT Ancillary Procedure [facility] [address] [place] [phone] 02/11/2025 9:30 AM EDT Office Visit Pulmonolgy - [place] 175 [facility] [address] [place] [address] Abhay Coppola MD [address] [address] 03/04/2025 9:10 AM EDT Office Visit Gastroenterology - [place] 175 [facility] [address] [phone] Daphnie Almanza PA 175 [facility] [address] [place] [address] 04/05/2025 11:30 AM EDT Office Visit Internal Medicine - [place] [address] [phone] Tanja Larkin MD [address] [phone] Health Maintenance Due Date Last Done Comments [...] Additional history exists Breast Cancer Screening 11/20/2026 11/21/19 25, 11/18/2023, 11/15/2022, Additional history exists Cholesterol Screening [...] 11/01/2024 11:46 AM EDT Hypertension, unspecified type HPV WITH REFLEX GENOTYPE Routine 10/26/2024 12:00 [...] Signed Date: 11/30/2024 00:10 ET Workstation ID: [id number] Transcribed By: Self Edit Transcribed Date: 11/30/2024 [...] joints. There is mild narrowing of the Y0btwiop foramina. There is no spinal cord compression. [...] Signed Date: 11/30/2024 00:10 ET Workstation ID: [id number] Transcribed By: Self Edit Transcribed Date: 11/30/2024 [...] for biopsy. PQRI CPT II 3342F Code 67311, 30622 PQRI 225 CPT II 7025F TISSUE DENSITY: There are scattered areas of fibroglandular density. (BI-RADS category B) IMPRESSION: Benign. BI-RADS CATEGORY: 2 - BENIGN RECOMMENDATION: Screening bilateral mammogram is recommended in 1 year. Mammo Location: [facility], [address] [place] [phone] -------- FINAL REPORT -------- Dictated By: Joseph Chaudhary Dictated Date: 11/20/2024 11:16 ET Assigned Physician: Joseph Chaudhary Reviewed and Electronically Signed By: Joseph Chaudhary Signed Date: 11/20/2024 11:19 ET Workstation ID: [id number] Transcribed By: Self Edit Transcribed Date: 11/20/2024 11:16 ET Narrative 11/20/2024 11:19 AM EDT CLINICAL: The patient is a 54 years Female presenting for routine screening mammography. COMPARISON: Most recently 11/18/2023 and most remotely 04/16/2017. TECHNIQUE: Full-field digital mammography of the breasts bilaterally consisting of tomosynthesis in MLO and CC projection is performed in the [employer] 2000-D unit. Computer aided detection utilizing the [...] MLO and CC projection is performed in the[employer] 2000-D unit. Computer aided detection utilizing the iCADsystem was utilized. FINDINGS: The breasts are again [...] for biopsy. PQRI CPT II 3342F Code 80314, 62422 PQRI 225 CPT II 7025F TISSUE DENSITY: There are scattered areas of fibroglandular density.(BI-RADS category B) IMPRESSION: Benign. BI-RADS CATEGORY: 2 - BENIGN RECOMMENDATION: Screening bilateral mammogram is recommended in 1 year. Mammo Location: [facility], [address] [place] [phone] -------- FINAL REPORT -------- Dictated By: Joseph Chaudhary Dictated Date: 11/20/2024 11:16 ET Assigned Physician: Joseph Chaudhary Reviewed and Electronically Signed By: Joseph Chaudhary Signed Date: 11/20/2024 11:19 ET Workstation ID: [id number] Transcribed By: Self Edit Transcribed Date: 11/20/2024 [...] probability of hip fracture of 0.9%. Code 40190 -------- FINAL REPORT -------- Dictated By: Joseph Chaudhary Dictated Date: 11/08/2024 11:55 ET Assigned Physician: Joseph Chaudhary Reviewed and Electronically Signed By: Joseph Chaudhary Signed Date: 11/08/2024 11:56 ET Workstation ID: [id number] Transcribed By: Self Edit Transcribed Date: 11/08/2024 [...] density of the femurs bilaterally is 0.886 gm/mm4ukxfk is 88% of that of young normals [...] probability of hip fracture of 0.9%. Code 76480 -------- FINAL REPORT -------- Dictated By: Joseph Chaudhary Dictated Date: 11/08/2024 11:55 ET Assigned Physician: Joseph Chaudhary Reviewed and Electronically Signed By: Joseph Chaudhary Signed Date: 11/08/2024 11:56 ET Workstation ID: [id number] Transcribed By: Self Edit Transcribed Date: 11/08/2024 11:55 ET Tanja Larkin MD IMG DXA PROCEDURES Final Resul t * Hemoglobin A1c (11/06/2024 11:15 AM EDT) Pathologist [facility] Hemoglobin A1C 5.5 <6.5 % LAB CHEMISTRY METHOD 11/06/2024 10:20 PM EDT [facility] Mean Bld Glu Estim. 111 mg/dL LAB CHEMISTRY METHOD 11/06/2024 10:20 PM EDT [facility] Blood Venous blood specimen / Unknown Venipuncture / Unknown 11/06/2024 11:15 AM EDT 11/06/2024 12:41 PM EDT Tanja Larkin MD LAB BLOOD ORDERABLES Final Res ult [facility] [address] [place] [address], * (ABNORMAL) Basic metabolic panel (11/01/2024 11:46 AM EDT) Sodium 137 133 - 145 mmol/L LAB CHEMISTRY METHOD 11/01/2024 1:40 PM EDT [facility] Potassium 3.8 3.5 - 5.5 mmol/L LAB CHEMISTRY METHOD 11/01/2024 1:40 PM EDT [facility] Chloride 105 96 - 110 mmol/L LAB CHEMISTRY METHOD 11/01/2024 1:40 PM EDT [facility] CO2 24 21 - 32 mmol/L LAB CHEMISTRY METHOD 11/01/2024 1:40 PM EDT [facility] Anion Gap 8 3 - 11 LAB CHEMISTRY METHOD 11/01/2024 1:40 PM T [facility] Glucose 204(H) 70 - 100 mg/dL LAB CHEMISTRY METHOD 11/01/2024 1:40 PM EDT [facility] BUN 16 5 - 25 mg/dL LAB CHEMISTRY METHOD 11/01/2024 1:40 PM EDT [facility] Creatinine 0.76 0.50 - 1.10 mg/dL LAB CHEMISTRY METHOD 11/01/2024 1:40 PM EDT [facility] eGFR 93 >=60 mL/min/1. 73m2 LAB CHEMISTRY METHOD 11/01/2024 1:40 PM EDT [facility] Comment:Calculation based on the Chronic Kidney Disease Epidemiology Collaboration (CKD-EPI) equation refit without adjustment for race. BUN/Creatinine Ratio 21.1 LAB CHEMISTRY METHOD 11/01/2024 1:40 PM T [facility] Calcium 8.9 8.5 - 10.5 mg/dL LAB CHEMISTRY METHOD 11/01/2024 1:40 PM T [facility] Blood Venous blood specimen / Unknown Venipuncture / Unknown 11/01/2024 11:46 AM EDT 11/01/2024 12:37 PM EDT us Marycarmen Georges NP LAB BLOOD ORDERABLES Final Resu lt [facility] [address] [place] [address], * HPV with reflex genotype (10/26/2024 12:00 AM EDT) HPV Negative Negative LAB MICROBIOLOGY METHOD 10/29/2024 3:58 PM EDT [facility] Brushing/Spatula Cervix uteri structure / Unknown 10/26/2024 10/29/2024 6:20 AM EDT Yenni Sandoval MD LAB MOLECULAR DIAGNOSTIC S ORDERABLES Final Result [facility] [address] [place] [address], * COLONOSCOPY Anesthesia - MAC; [facility] ENDOSCOPY (07/24/2024 8:04 AM EST) Anatomical Region Laterality Modality Endoscopy 07/24/2024 7:48 AM EST Impressions 07/24/2024 8:05 AM EST - Internal hemorrhoids. - The examination was otherwise normal. - No specimens collected. Recommendation: - Discharge patient to home. - Repeat colonoscopy in 10 years for surveillance. Narrative 07/24/2024 8:05 AM EST [facility] Patient Name: Kristy Li Procedure [...] verified by the physician, the nurse, the mobile mechanic and the solar panel technician in the pre-procedure area in the [...] history of colonic polyps CPT copyright 2020 [employer]. All rights reserved. The codes documented in this report are preliminary and upon construction technology instructor review may be revised to meet current compliance requirements. Danica Park MD 07/24/2024 8:05:30 AM This report has been signed electronically.Danica Park MD Number of Addenda: 0 Note Initiated On: 07/24/2024 7:48 AM Scope Withdrawal Time: 0 hours 6 minutes 20 seconds Scope In: 7:53:45 AM Scope Out: 8:04:47 AM Endoscopy Department at [facility] - [address] [place] [phone] Procedure Note Danica Park MD - 07/24/2024 [facility] Patient Name: Kristy Li Procedure [...] the physician, the nurse, theanesthetist and the solar panel technician in the pre-procedure area in the [...] history of colonic polyps CPT copyright 2020 [employer]. All rights reserved. The codes documented in this report are preliminary and upon construction technology instructor reviewmay be revised to meet current compliance requirements. Danica Park MD 07/24/2024 8:05:30 AM This report has been signed electronically.Danica Park MD Number of Addenda: 0 Note Initiated On: 07/24/2024 7:48 AM Scope Withdrawal Time: 0 hours 6 minutes 20 seconds Scope In: 7:53:45 AM Scope Out: 8:04:47 AM Endoscopy Department at [facility] - [address] [place] [phone] IMPRESSION: - Internal hemorrhoids. - The examination was otherwise normal. - No specimens collected. Recommendation: - Discharge patient to home. - Repeat colonoscopy in 10 years forsurveillance. Danica Park MD GI~PROCEDURE ORDERABLES Fin al Result * Lipid panel with reflex to direct LDL (06/18/2024 8:50 AM EST) Cholesterol 104 0 - 200 mg/dL LAB CHEMISTRY METHOD 06/18/2024 10:27 AM [facility] Triglycerides 112 0 - 150 mg/dL LAB CHEMISTRY METHOD 06/18/2024 10:27 AM [facility] HDL 45 >=40 mg/dL LAB CHEMISTRY METHOD 06/18/2024 10:27 AM [facility] LDL Calculated 37 0 - 100 mg/dL LAB CHEMISTRY METHOD 06/18/2024 10:27 AM [facility] VLDL Cholesterol Oliverio 22.4 mg/dL LAB CHEMISTRY METHOD 06/18/2024 10:27 AM [facility] Non HDL Chol. (LDL+VLDL) 59 <145 mg/dL LAB CHEMISTRY METHOD 06/18/2024 10:27 AM EST [facility] Chol/HDL Ratio 2.3 0.0 - 4.4 LAB CHEMISTRY METHOD 06/18/2024 10:27 AM EST [facility] Blood Venous blood specimen / Unknown Venipuncture / Unknown 06/18/2024 8:50 AM EST 06/18/2024 8:50 AM EST us Arash Vee MD LAB BLOOD ORDERABLES Final Resul t [facility] [address] [place] [address], [place] [phone] * Hepatitis C Screening (05/17/2022) Pathologist [facility] Hepatitis C Screening Abstracted Linda Provider HEALTH MAINTENANCE Final Result from Last 3 Months or Most Recently Relevant to Health Maintenance Insurance [facility] MEDICARE Care Teams Battery Vent Plug Inserter Relationship Specialty Start Date End Date Tanja Larkin MD [address] [phone] PCP - General Internal Medicine 05/04/24
--- NOTE | 2025-02-05 08:03 | A.OFFVIS_ITS ---
Vital Signs 02/05/25 08:04 Height 5 ft 1 in Weight 152 lb 1.903 oz BMI 28.7 BP 120/80 Blood Pressure Location Rt brachial Position Sitting Pulse 80 Pulse Source Pulse Oximeter Pulse Oximetry (%) 95 Oxygen Delivery Method Room Air Intake Visit Reasons: 3 Months Intake Note: Pt seen today for OA follow up. Accompanied by: Self / Same As Patient Allergies aspirin (ASPIRIN) Allergy (Intermediate, Unverified 01/23/25 15:10) STOMACH UPSET acetaminophen (Percocet) Allergy (Unknown, Verified 01/23/25 15:10) Unknown lidocaine (LIDOCAINE) Allergy (Unknown, Unverified 01/23/25 15:10) NAUSEA/VOMITING codeine (CODEINE) Adverse Reaction (Intermediate, Unverified 01/23/25 15:10) STOMACH UPSET oxycodone (From PERCOCET) Adverse Reaction (Intermediate, Unverified 01/23/25 15:10) STOMACH UPSET Lactose Allergy (Unknown, Uncoded 01/23/25 15:10) Unknown HPI HPI 3 Months: Details: PT was helpful in improving her hip pain. She had right knee replacement January 04. She continues to have knee swelling. Bilateral hip pain reoccurred. She has to sleep on her back, which has been uncomfortable contributing to more back pain. She was prescribed morphine for knee pain without benefit. She follows up with orthopedic surgery, which he has already done on 3 occasions. She continues to work with PT to improve range of motion of her knee. [facility] Medical History FH: cholecystectomy Osteoarthritis, hand Osteoarthritis of knees, bilateral Fibromyalgia Surgical History History of total right knee replacement History of esophagogastroduodenoscopy (EGD) History of carpal tunnel release of both wrists Family History Father Stroke CVD (cardiovascular disease) Mother Gastritis Skin cancer Social History Household Members: Spouse Housing: House Are you a primary animal care assistant to a significant other at home: No Do you presently have visiting nurse or other home services: No 75 years or older and lives alone: No Alcohol intake: never Patient Tobacco Use Status: Never used Tobacco e-Cigarette/Vaping Use: Never Used service: No Current occupational status: disabled Physical Exam Vital Signs: Last Vital Signs Pulse 80 02/05/25 08:04 BP 120/80 02/05/25 08:04 Pulse Ox 95 02/05/25 08:04 Oxygen Delivery Method Room Air 02/05/25 08:04 BMI result Body Mass Index 28.7 Const Other: General: Comfortable Skin: No lesions seen MSK: Tender to palpate bilateral trochanteric bursae. Normal hip range of motion. Tender right knee. Right knee moderate effusion. Office Procedures AMB Joint Injection/Aspiration Coding 26099 - Bilateral Large Joint Procedure code (CPT) selection complete AMB Joint Injection/Aspiration Joint Injection/Aspiration Details: Bilateral trochanteric bursa Prep: site was prepped using aseptic technique Injected into each site: 40 mg of, Kenalog, with 1 mL of and 1% plain lidocaine Procedure: Informed verbal consent was obtained. The patient tolerated the procedure well. Postprocedure protocol was discussed with patient. Coding 80599 - Bilateral Large Joint Procedure code (CPT) selection complete Office Meds lidocaine (PF) 10 mg/mL (1 %) injection solution Performing Provider: Yuval Rodriguez MD Performing Location: [facility] Administered by: Yuval Rodriguez MD on 02/05/25 12:45 Dose Route Admin Location Dispensed Lot Number Expiration Date [facility] Crop Supervisor 10 mg Infiltration 2 mL [id number] FRESEN IUS KABI Total Dispensed Waste 2 mL 50 % Kenalog 40 mg/mL suspension for injection Performing Provider: Yuval Rodriguez MD Performing Location: [facility] Administered by: Yuval Rodriguez MD on 02/05/25 12:45 Dose Route Admin Location Dispensed Lot Number Expiration Date [facility] Crop Supervisor 40 mg intrabursal 1 mL AP [id number] [employer]NE[employer] L [employer] Total Dispensed Waste 1 mL 0 % lidocaine (PF) 10 mg/mL (1 %) injection solution Performing Provider: Yuval Rodriguez MD Performing Location: [facility] Administered by: Yuval Rodriguez MD on 02/05/25 12:45 Dose Route Admin Location Dispensed Lot Number Expiration Date [facility] Crop Supervisor 10 mg Infiltration 2 mL [id number] FRESEN IUS KABI Total Dispensed Waste 2 mL 50 % Kenalog 40 mg/mL suspension for injection Performing Provider: Yuval Rodriguez MD Performing Location: [facility] Administered by: Yuval Rodriguez MD on 02/05/25 12:45 Dose Route Admin Location Dispensed Lot Number Expiration Date [facility] Crop Supervisor 40 mg intrabursal 1 mL AP [id number] AMNEA L [employer] Total Dispensed Waste 1 mL 0 % Results Reviewed Results Reviewed: Ordering Physician: Yuval Rodriguez MD Date of Service: 11/01/24 Procedure(s): XR hips ZOFIA min 3V Accession Number(s): [id number] cc: Tanja Larkin MD; Yuval Rodriguez MD~ EXAMINATION: XR BILATERAL HIPS WITH AP PELVIS CLINICAL INFORMATION: M25.551 - Pain in right hip COMPARISON: None available. TECHNIQUE: AP and frog-leg lateral views of each hip were obtained. FINDINGS: RIGHT HIP: No fracture, dislocation, or suspicious bone lesion. No significant arthropathy evident. Normal acetabular coverage. Femoral head is normal in contour without evidence of AVN. Normal soft tissues. Normal-appearing right SI joint. LEFT HIP: No fracture, dislocation, or suspicious bone lesion. No significant arthropathy evident. Normal acetabular coverage. Femoral head is normal in contour without evidence of AVN. Normal soft tissues. Normal-appearing right SI joint. XR/XR hips ZOFIA min 3V IMPRESSION: Normal radiographs bilateral hips. Assessment & Plan Assessment & Plan (1) Greater trochanteric bursitis of both hips: Comment: She had initial benefit with physical therapy but since right knee replacement pain has reoccurred. She continues PT exercises without benefit. We discuss next steps in treatment. X-ray of bilateral hips are normal. Code(s): M70.61 - Trochanteric bursitis, right hip; M70.62 - Trochanteric bursitis, left hip Category: Medical Plan: Patient received bilateral trochanteric bursa cortisone injections I recommend that she continues PT exercises for hip strengthening. She is currently in physical therapy after knee replacement. She will ask physical therapist for back strengthening exercises If back pain does not improve by next visit, she will consider following up with scene painter who has treated her back pain with cortisone injections in the past She will follow up with knee surgeon for right knee pain and swelling postop. Consider NSAID celecoxib, meloxicam or nabumetone, which have a better GI safety profile compared to other NSAIDs. Return to clinic in 3 months Orders: Orders AMB Joint Injection/Aspiration Today M70.61 - Trochanteric bursitis, right hip, M70.62 - Trochanteric bursitis, left hip AMB Joint Injection/Aspiration Today M70.61 - Trochanteric bursitis, right hip, M70.62 - Trochanteric bursitis, left hip Coding Level of Care Code Est Pt Level 4 (30815) Diagnoses Greater trochanteric bursitis of both hips M70.61; M70.62 CPT Codes Coding - 54901 - Bilateral Large Joint: 20830 - Bilateral Large Joint ([id number]) Coding - 66520 - Bilateral Large Joint: 18121 - Bilateral Large Joint ([id number]) Time Spent (min) 25
[2025-02-05 08:04] VITALS: BP 120/80; PULSE 80; O2SAT 95; BMI 28.7
== END 2025-02-05 08:41 | disposition home or self-care (01) ==
LOC: HO.RHES 07:58
PROVIDERS: PCP Internal Medicine; Visit Provider Internal Medicine Rheumatology
DX: M70.61 Trochanteric bursitis, right hip (principal); M70.62 Trochanteric bursitis, left hip
CPT/HCPCS: 20610; 99213

== ENCOUNTER → 2025-02-05 07:58 | Outpatient (BNVA) | payer BC, SELFPAY | PROVIDERS: PCP Internal Medicine; Visit Provider Internal Medicine Rheumatology | DX: M70.61 Trochanteric bursitis, right hip (principal); M70.62 Trochanteric bursitis, left hip | CPT/HCPCS: 20610; J2003; J3300 ==

== ENCOUNTER 2025-02-13 13:01 | Outpatient (AMB) | payer BC, SELFPAY ==
--- OUTSIDE RECORDS SUMMARY | 2025-02-11 09:30 | XMS_ITS | Encounter Summary ---
Author Organization [facility] Address [address] [place] [address] Care Team Providers Care Direct Response Consultant Name Role Phone Tanja Larkin MD Primary Care Provider [phone] Reason for Visit * Reason Comments Asthma 6 mth f/u asthma Encounter Details Date Type Department Care Team ([facility] st Contact Info) Description 02/11/2025 9:30 AM EDT Office Visit Pulmonol - [place] [address] [place] [address] Abhay Coppola MD [address] [place] [address] Mild persistent asthma with acute exacerbation (Primary Dx) Social History Tobacco Use Types Packs/Day Years [...] care for your loved ones. For example, children's institution attendant or elderly care for an older adult? [...] PM EST documented as of this encounter Last Filed Vital Signs Vital Sign Reading Time Taken Comments Blood Pressure 100/62 02/11/2025 9:40 AM EDT Pulse 83 02/11/2025 9:40 AM EDT Temperature 36.3 C (97.4 F) 02/11/2025 9:40 AM EDT Respiratory Rate 16 02/11/2025 9:40 AM EDT Oxygen Saturation 98% 02/11/2025 9:40 AM EDT Inhaled Oxygen Concentration - - Weight 68.3 kg (150 lb 9.6 oz) 02/11/2025 9:40 A M EDT Height 149.9 cm (4' 11 ) 02/11/2025 9:40 AM EDT Body Mass Index 30.42 02/11/2025 9:40 AM EDT documented in this encounter Functional Status * Are you deaf or do you have serious difficulty hearing? Answer Date of Assessment Author No 08/21/2024 5:40 PM Kizzy Hernandez RN * Are you blind or do you have serious difficulty seeing, even when wearing glasses? Answer Date of Assessment Author No 08/21/2024 5:40 PM iKzzy Hernandez RN * Do you have serious [...] Kizzy Hernandez RN documented in this encounter Ordered Prescriptions Prescription Sig Dispense Quantity Refills Last Filled Start Date End Date doxycycline (ADOXA) 100 mg tablet Take 1 tablet (100 mg total) by mouth 2 (two) times a day for 7 days. Take with a full glass of water and do not lie down for at least 30 minutes after 14 each 02/11/2025 methylPREDNISolon e (Medrol, Darnell,) 4 mg tablet Follow schedule on package instructions 21 tablet 02/11/2025 documented in this encounter Progress Notes * Abhay Coppola MD - 02/11/2025 9:30 AM EDT ADULT PULMONARY CONSULT CHIEF COMPLAINT or REASON FOR CONSULTATION: Asthma (6 mth f/u asthma) HISTORY OF PRESENT ILLNESS: Kristy Li is a 55 y.o. years old, female with a history of asthma and RAMOS. I last saw her 5 mths ago. I rx her with antibiotics for exacerbation. The pt had knee surgery on 01/04/25. The patient is on Breztri plus montelukast for the asthma. She is no longer on Dupixent, has green sputum plus wheezing for past few days. Her knee surgery was done 6 weeks ago, she has not completely healed and there is limited movement. She is working with PT and there is possibility of further surgical realignment of the knee due to movement issues. ALLERGIES: Allergies Allergen Reactions Acetaminophen Nausea Only Aspirin GI intolerance Codeine Other Other reaction(s): Vomiting GI Upset GI Upset Ibuprofen Other Nsaids (Non-Steroidal Anti-Inflammatory Drug) Worsening reflux Other Seasonal Allergies Oxycodone Nausea And Vomiting Oxycodone-Acetaminophen Nausea And Vomiting Promethazine-Codeine Blood pressure drop ,diaphoreses, ACTIVE MEDICATIONS: Outpatient Medications Marked as Taking for the 02/11/25 encounter (Office Visit) with Abhay Coppola MD Medication Sig Dispense Refill albuterol 2.5 mg /3 mL (0.083 %) nebulizer solution Take 3 mL (2.5 mg total) by nebulization every 6 (six) hours if needed for wheezing. 300 mL 11 albuterol 2.5 mg /3 mL (0.083 %) nebulizer solution USE ONE AMPULE USING A NEBULIZER EVERY 4 HOURS NEEDED FOR WHEEZING OR SHORTNESS OF BREATH 180 mL 0 alendronate (FOSAMAX) 70 mg tablet Take 1 tablet (70 mg total) by mouth every 7 (seven) days. Take in the morning with a full glass of water, on an empty stomach, and do not take anything else by mouth or lie down for the next 30 min. 12 each 3 atorvastatin (LIPITOR) 20 mg tablet Take 1 tablet (20 mg total) by mouth 1 (one) time each day. 90 tablet 3 BIOTIN ORAL Take 3 tablets by mouth 1 (one) time each day. Biotin 5000 MCG Tab isqyfrjuiq-kcvguaas-yyoylthghx (BREZTRI AEROSPHERE) 160-9-4.8 mcg/actuation HFA aerosol inhaler inhaler INHALE 2 PUFFS INTO THE LUNGS 2 TIMES DAILY FOR 30 DAYS. calcium carbonate-vitamin D3 600 mg-10 mcg (400 unit) capsule Take 1 capsule by mouth 2 (two) timesa day. 180 each 2 cetirizine (ZyrTEC) 10 mg tablet Take 1 tablet (10 mg total) by mouth 2 (two) times a day. CHOLECALCIFEROL, VITAMIN D3, ORAL Take 1 tablet by mouth 1 (one) time each day. Cholecalciferol (Vitamin D) 50 MCG (2000 UT) Tab cyanocobalamin (VITAMIN B-12) 1,000 mcg tablet Take 3 tablets (3,000 mcg total) by mouth 2 (two) times a day. dilTIAZem CD (CARDIZEM CD) 120 mg 24 hr capsule Take 1 capsule (120 mg total) by mouth 1 (one) timeeach day. 90 each 3 DULoxetine (CYMBALTA) [address] capsule TAKE ONE CAPSULE IN THE MORNING AND EVENING Dupixent Pen 300 mg/2 mL pen Inject 1 Syringe under the skin. 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 lactobacillus combination no.4 (Probiotic) 3 billion cell capsule Take by mouth 2 (two) times a day. magnesium oxide 400 mg magnesium capsule Take 1 capsule by mouth at bedtime. 90 capsule 3 meclizine (ANTIVERT) 25 mg tablet Take 1 tablet (25 mg total) by mouth every 8 (eight) hours if needed. montelukast (SINGULAIR) 10 mg tablet Take 1 tablet (10 mg total) by mouth. multivit-min/ferrous fumarate (MULTI VITAMIN ORAL) 0 Refills, Maintenance, 08/27/20 13:37:00 EST, Partial fill upon patient request if the prescription is for a schedule II opioid drug. NON FORMULARY Ortho digestsyme ondansetron (ZOFRAN) 4 mg tablet Take 1 tablet (4 mg total) by mouth every 8 (eight) hours if needed for nausea. for up to 30 days. pantoprazole (PROTONIX) 40 mg EC tablet Take 1 tablet (40 mg total) by mouth 2 (two) times a day. for 360 days. 180 each 3 plecanatide (TRULANCE) 3 mg tablet Take 1 tablet (3 mg total) by mouth 1 (one) time each day. 90 tablet 3 pregabalin (LYRICA) 225 mg capsule Take 1 capsule (225 mg total) by mouth 2 (two) times a day. Restasis 0.05 % ophthalmic emulsion Administer 1 drop into both eyes 2 (two) times a day. sucralfate (CARAFATE) 1 gram tablet Take 1 tablet (1 g total) by mouth 4 (four) times a day. 360 tablet 3 tirzepatide, weight loss, (ZEPBOUND) 5 mg/0.5 mL injection Inject 0.5 mL (5 mg total) under the skin every 7 (seven) days. 2 mL 3 traMADoL 25 mg tablet Take 50 mg by mouth every 4 (four) hours. Max Daily Amount: 300 mg traZODone (DESYREL) 50 mg tablet TAKE 1/2 TO 1 TABLET AT BEDTIME NEEDED FOR SLEEP triamcinolone (Nasal Allergy) 55 mcg nasal inhaler 2 sprays 1 (one) time each day. INTRANASALLY Ventolin HFA 90 mcg/actuation inhaler INHALE TWO PUFFS EVERY 4 HOURS NEEDED FOR COUGH OR FOR WHEEZING 18 g 2 PROVIDER ATTESTS THAT THE MEDICATION LIST WAS OBTAINED, REVIEWED AND UPDATED. REVIEW OF SYSTEMS: GENERAL: No wt lost or fever ENT: +snoring Eye: RESPIRATORY: + cough, wheezing and dyspnea CARDIOVASCULAR: No chest pain, leg swelling or palpitations GI: No abdominal discomfort, MUSCULOSKELETAL: +backpain, + knee pain HEMATOLOGY/LYMPHOLOGY No prolonged bleeding, easy bruisability ENDOCRINE: no DM NEURO: No focal weakness : Psych: no depression PAST MEDICAL HISTORY: Patient Active Problem List Diagnosis Date Noted Class 1 obesity with body mass index (BMI) of 30.0 to 30.9 in adult 05/29/2024 Seasonal allergies 03/28/2024 Hypertension 09/28/2023 Biliary dyskinesia 07/25/2023 Fibromyalgia 03/02/2022 Anxiety and depression 06/09/2021 Grief 06/09/2021 Esophageal dysmotility 05/13/2021 HLD (hyperlipidemia) 03/15/2021 Chest pain 08/14/2020 Heart murmur 08/14/2020 Shortness of breath 08/14/2020 Mild persistent asthma without complication 10/13/2017 RAMOS (obstructive sleep apnea) 10/13/2017 Cervical radiculitis 02/01/2017 Solitary pulmonary nodule 06/15/2013 Pulmonary granuloma ([facility] V24, [facility] V28) 04/13/2013 Radiculitis, lumbosacral 09/23/2010 GERD (gastroesophageal reflux disease) 06/04/2010 Past Surgical History: Procedure Laterality Date CARPAL TUNNEL RELEASE PROCEDURE: HISTORICAL CARPAL TUNNEL REL; COMMENT: Bilateral CHOLECYSTECTOMY PROCEDURE: CA LAPAROSCOPY SURG CHOLECYSTECTOMY ESOPHAGOGASTRODUODENOSCOPY 06/16/2012 PROCEDURE: CA ESOPHAGOGASTRODUODENOSCOPY TRANSORAL DIAGNOSTIC; COMMENT: normal ESOPHAGOGASTRODUODENOSCOPY 09/2018 PROCEDURE: CA ESOPHAGOGASTRODUODENOSCOPY TRANSORAL DIAGNOSTIC EYE SURGERY PROCEDURE: CA TRABECULOPLASTY BY LASER SURGERY; COMMENT: LASIK - b/l KNEE SURGERY Right 08/2020 PROCEDURE: HISTORICAL KNEE SURGERY; COMMENT: arthroscopic OTHER SURGICAL HISTORY PROCEDURE: ---- OTHER ----; COMMENT: cyst removal from spine a few mths VAGINOSCOPY PROCEDURE: CA COLPOSCOPY CERVIX VAG LOOP ELTRD BX CERVIX; COMMENT: hx of abnormal pap smear FAMILY HISTORY: Family History Problem Relation Name Age of Onset Diabetes Mother Heart attack Mother 60 Stroke Father 68 Breast cancer Maternal Grandmother 48 Cataracts Paternal Grandmother Glaucoma Paternal Grandmother Cataracts Aunt Prostate cancer Father's side 60 Great Uncle Cervical cancer Mother's side 70 Great grandmother Diabetes Mother's side Breast cancer Mother's Sister OCCUPATION OR OCCUPATION EXPOSURE: SOCIAL HISTORY Social History Socioeconomic History Marital status: Spouse name: Not on file Number of children: Not on file Years of education: Not on file Highest education level: Not on file Occupational History Not on file Tobacco Use Smoking status: Never Smokeless tobacco: Never Substance and Sexual Activity Alcohol use: Not Currently Drug use: Never Sexual activity: Not on file Comment: ablation Other Topics Concern Not on file Social History Narrative 06/30/2016: Currently living with her . No pets in the home. She reports that her son is grownand out of the house. 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 Due for eye services. She is seeing [facility] for recent elbow fracture, but no other spe cialists. Reports working smoke detectors in the home. No reported firearms. She feels safe at homeand at work. 03/02/2022: Currently living with her . She has a hypoallergenic dog in the home (Shyam). Her son last year secondar y to a motorcycle accident. 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 She seesDr. Mcguire in cardiology, Dr. Worrell in rheumatology, Dr Coppola in pulmonology and Dr. Leblancji inneurology. Reports working smoke detectors in the home . No reported firearms. She feels safe at home. She is no longer working and notes that she is on disability for fibromyalgia. IMMUNIZATION: Immunization History Administered Date(s) Administered COVID-19 (Pfizer/Comirnaty) 12yo and older 03/22/2023 Hepatitis B (Hyitoft-B-Lbadb, Recombivax HB-Adult) 19yo and older 05/09/2013, 06/13/2013, 11/07/2013 Influenza Quadravalent, MDCK, 0.5ml, preservative free (Flucelvax) 6mo and older 03/12/2018, 04/24/2021, 03/02/2022 Influenza trivalent, with preservative (Fluzone; Afluria) 6mo and older 03/09/2010, 03/27/2012, 03/12/2013, 03/31/2014, 03/25/2015 Moderna (age 6mo & older) Bivalent, COVID-19, 0.5 mL or 0.25 mL dosage 05/09/2022 Moderna SARS-CoV-2 COVID-19, mRNA, LNP-S, preservative free 07/16/2020, 08/12/2020, 05/13/2021, 10/08/2021 PPD Test 05/16/2013, 05/28/2014, 07/10/2014, 07/04/2019 Pneumococcal polysaccharide 23 valent (Pneumovax 23) 2yo and older 10/26/2017 Tdap Tetanus diptheria acellular pertussis (Boostrix; Adacel) 7yo and older 01/28/2010, 05/30/2015 PHYSICAL EXAM: Visit Vitals BP 100/62 (BP Location: Left arm, Patient Position: Sitting, BP Cuff Size: Adult) Pulse 83 Temp 36.3 ??C (97.4 ??F) (Temporal) Resp 16 Ht 1.499 m (59 ) Wt 68.3 kg (150 lb 9.6 oz) LMP (LMP Unknown) SpO2 98% BMI 30.42 kg/m?? OB Status Postmenopausal Smoking Status Never BSA 1.63 m?? APPEARANCE: Alert and in no acute distress. Well nourished EYES: Conjunctiva and sclera normal. NOSE/SINUS: Nares normal. Septum midline. Mucosa. Sinus tender in frontal and maxillary MOUTH/THROAT: no erythema or exudates. Mallampati class 2, +sinus congestion NECK: Neck supple, thyroid symmetric and of normal size. No sinus tenderness HEART: RRR with normal S1 and S2, no murmurs, no gallops, no JVD appreciated. LUNG: CTA b/l, no wheezing or bronchial bs. Slight exp wheezing ABDOMEN: Bowel sounds normoactive, soft, non-tender EXTREMITIES: no clubbing, cyanosis, or edema. Right knee slightly tender NEURO: Awake, alert and oriented x 3, no focalization. Impression Flows: FVC 94% of predicted at 2.84 L FEV1 96% of predicted at 2.3 L No bronchodilator response FEV1 to FVC ratio 0.83 Volumes: Total lung capacity 128% of predicted at 5.74 L Residual volume 178% of predicted at 2.77 L Slow vital capacity 98% of predicted at 2.97 L Expiratory reserve volume 25% of predicted 0.26 L Diffusion capacity is normal Impression: No obstructive or restrictive ventilatory defect. Increased total lung capacity suggests hyperinflation. Increased residual volumes suggest air trapping. Exhaled nitric oxide elevated at 42. ASSESSMENT: ICD-10-CM ICD-9-CM 1. Mild persistent asthma with acute exacerbation J45.31 493.92 PLAN: I will give her Medrol dosepak and doxycycline since she has bronchitic symptoms. The patient had multiple exacerbations in the past and is postop. She will continue Breztri and montelukast - Follow up with Tanja Larkin MD for the other co-morbilities. - I spend 23 Minutes on this visit. The patient was educated about his problems, where assessment and plan was reviewed and explained, All questions were answered. This includes: Preparing to see the patient, obtaining and/or reviewing separately obtained history, performing a medically appropriate exam, ordering medications, tests, or procedures, documenting clinical information in the electronic health record, and independently interpreting results. RETURN TO THE NEXT VISIT: Based on physical exam, symptomatology, tests requested and baseline pulmonary evaluation/disease, I instructed the patient to come back to see me in 4 mths for reevaluation after the test has been done or earlier if the patient needed. Thanks Tanja Larkin MD for allowing me to have the opportunity to assist in the care of this patient. documented in this encounter Plan of Treatment Upcoming Encounters Date Type Department Care Team (Late st Contact Info) Description 03/04/2025 9:10 AM EDT Office Visit Gastroenterology - [place] [address] [facility] [address] [phone] Daphnie Almanza PA [address] [address] 04/05/2025 11:30 AM EDT Office Visit Internal Medicine - [place] [address] [phone] Tanja Larkin MD [address] [phone] 06/10/2025 9:00 AM EST Office Visit Pulmonolgy - [place] [address] [phone] Abhay Coppola MD [address] [address] documented as of this encounter Visit Diagnoses Diagnosis Mild persistent asthma with acute exacerbation- Primary documented in this encounter Historical Medications * This list may reflect changes made after this encounter. 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 Max Daily Amount: 300 mg added in this encounter Additional Health Concerns Assessment Noted Time PHQ-9 Depression Total Score: 19 025 3:44 PM EST documented as of this encounter Care Teams Direct Response Consultant Relationship Specialty Start Date End Date Tanja Larkin MD [address] [place] [phone] PCP - General Internal Medicine 05/04/24 documented as of this encounter
--- NOTE | 2025-02-13 13:04 | A.OFFVIS_ITS ---
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 Accompanied by: Sister Allergies aspirin (ASPIRIN) Allergy (Intermediate, Verified 02/13/25 13:09) STOMACH UPSET NSAIDS (Non-Steroidal Anti-Inflamma Allergy (Mild, Verified 02/13/25 13:10) Stomach Upset acetaminophen (Percocet) Allergy (Unknown, Verified 02/13/25 13:09) Unknown codeine (CODEINE) Adverse Reaction (Intermediate, Verified 02/13/25 13:09) STOMACH UPSET oxycodone (From PERCOCET) Adverse Reaction (Intermediate, Verified 02/13/25 13:09) STOMACH UPSET Lactose Allergy (Unknown, Uncoded 01/23/25 15:10) Unknown HPI Comments Details: The patient is a 55-year-old female presenting with neck pain and associated symptoms. The neck pain has been present for many years and is described as severe, often leading to migraines. The pain radiates down the spine to the waistline, accompanied by numbness on both sides. The patient reports a history of degenerative joint disease, which has been identified as the underlying cause of her symptoms. She has undergone various interventions, including physical therapy and injections, with limited relief. She continues with home exercise program however pain persists. Previous injections resulted in adverse effects, including nausea and dizziness, thought to be associated with procedural anesthesia. The patient underwent a total knee replacement on the right knee, which was followed by muscle tightness and limited range of motion. She was prescribed tizanidine, a muscle relaxer, which did not improve her neck pain. The patient also experiences vertigo and has been managing fibromyalgia with Lyrica. She has a history of bursitis, for which she received steroid injections that were well-tolerated. - Onset: Pain has been present for many years. - Quality: Severe pain leading to migraines. - Location: Neck, radiating down the spine to the waistline. - Radiation: Pain and numbness on both sides. - Exacerbating factors: Degenerative joint disease. - Relieving factors: Limited relief from physical therapy and injections. - Affect: Pain impacts daily activities and causes migraines. - Analgesia: Currently using Lyrica; previous use of tizanidine and tramadol with limited effect. - Adverse Effects: Nausea and dizziness from previous injections. - Activities of Daily Living: Pain limits physical activities and requires home exercises. - Aberrant Drug Related Behaviors: None reported. [facility] Medical History FH: cholecystectomy Osteoarthritis, hand Osteoarthritis of knees, bilateral Fibromyalgia Surgical History History of total right knee replacement History of esophagogastroduodenoscopy (EGD) History of carpal tunnel release of both wrists Family History Father Stroke CVD (cardiovascular disease) Mother Gastritis Skin cancer Social History Household Members: Spouse Housing: House Are you a primary wild animal caretaker to a significant other at home: No Do you presently have visiting nurse or other home services: No 75 years or older and lives alone: No Alcohol intake: never Patient Tobacco Use Status: Never used Tobacco e-Cigarette/Vaping Use: Never Used service: No Current occupational status: disabled Review of Systems Const Details: - Neurological: Reports migraines, numbness, and vertigo. - Musculoskeletal: Reports neck pain and degenerative joint disease. - General: Reports chronic pain and fibromyalgia. Physical Exam Exam Exam: General: awake, alert, oriented. Answers questions appropriately. Fully engaged in examination. Skin: warm, dry, intact HEENT: Normocephalic. Hearing intact. Cardiac: External chest normal in appearance. Respiratory: No cough, audible wheezing or stridor. Abdomen: without gross distension. MS: No obvious swelling or deformities. Able to transition from sit to stand unassisted. Ambulates with bilaterally normal heel strike and toe off Cervical spine: Decreased range of motion all planes tenderness to palpation over midline cervical vertebrae and cervical paraspinal muscles. Tenderness over upper and middle trapezius bilaterally. Bilateral upper extremity strength 5/5. Spurling positive. Neurological: Oriented to person, place, time and situation. Thought process intact. No gait abnormalities appreciated. Psychiatric: Appropriate mood and affect. Good judgment and insight. Vital Signs: Last Vital Signs Pulse 91 02/13/25 13:06 Resp 16 02/13/25 13:06 BP 138/68 02/13/25 13:06 Pulse Ox 96 02/13/25 13:06 Oxygen Delivery Method Room Air 02/13/25 13:06 BMI result Body Mass Index 27.6 Results Reviewed Results Reviewed: Per recent neurology note: MRI C-spine 11/2024 at [place]: Limited by motion artifact examination. Multilevel bony and discs degenerative changes without evidence of focal disc herniation or spinal stenosis. No spinal cord compression or focal signal abnormlaities within the spinal cord. Narrowing of the lateral recesses and neural foramina at multiple levels with possible compression of the C6 nerve roots. Suggestion of muscle spasm. 03/2024 FINDINGS: Cervical spine: Straightening of the normal lordosis which may represent muscle spasm or patient positioning. 2 mm of anterior listhesis of C7 on T1. Mild to moderate narrowing of the C5-6 and C6-7 disc spaces. Prevertebral soft tissues are within normal limits. Thoracic spine: Mild dextroscoliosis of the thoracic spine with a Inman angle of 17 degrees. Vertebral body height is normal without compression deformity. Visualized disc spaces are unremarkable. Lumbar spine: Accentuated lumbar lordosis. Vertebral body height is normal without compression deformity. Disc space narrowing noted at the L3-4 and L5-S1 levels. Vacuum disc phenomenon at L5-S1. Facet arthropathy at L4-5 and L5-S1. 3 mm of anterior listhesis of L5 on S1 without spondylolysis likely related to the spondylosis. IMPRESSION: 1.No acute osseous abnormality. 2.Spondylosis as described. 3.Dextroscoliosis of the thoracic spine with Inman angle of 17 degrees. 4.Accentuated lumbar lordosis. Assessment & Plan Assessment & Plan (1) Cervical spondylosis: Code(s): M47.812 - Spondylosis without myelopathy or radiculopathy, cervical region Category: Medical (2) Chronic pain syndrome: Code(s): G89.4 - Chronic pain syndrome Category: Medical Plan The plan involves addressing the patient's chronic neck pain and associated symptoms through a series of diagnostic and therapeutic interventions. Initially, diagnostic injections into the joints will be performed to assess the source of pain, followed by a pain diary to monitor relief. If the diagnostic injections do not provide sufficient relief, trigger point injections will be considered as an alternative approach. The patient will continue with home exercises and physical therapy to maintain mobility and manage symptoms. Follow-up will be scheduled to evaluate the effectiveness of the interventions and adjust the treatment plan as necessary. Will schedule for fluoroscopy guided bilateral diagnostic C3-C4 C5 medial branch blocks with minimal sedation. Patient reports that she has been unable to tolerate injections in the past without sedation. Patient was informed and verbally consented to the use of an ambient scribe for clinic note documentation during this visit. Patient Instructions: - Continue home exercises and physical therapy as instructed. - Keep a pain diary after the diagnostic injections to monitor pain relief. - Follow up with the clinic as scheduled to discuss the effectiveness of the treatment. - Contact the office if there are any changes in symptoms or if you have questions. Coding Level of Care Code New Pt Level 4 (25953) Diagnoses Cervical spondylosis M47.812 Chronic pain syndrome G89.4
[2025-02-13 13:06] VITALS: BP 138/68; PULSE 91; RESP 16; O2SAT 96; BMI 27.6
--- OUTSIDE RECORDS SUMMARY | 2025-02-13 13:54 | XMS_ITS | Encounter Summary ---
Author Organization [facility] Address [address] [place] [address] Care Team Providers Care Lean Coach Name Role Phone Lázaro Mcguire MD Unavailable Kenisha Huang PA-C Unavailable Unavailab Tanja Olguin MD Primary Care Provider [phone] Dony Worrell MD Unavailable Unavaila Emanuel Kaplan MD Unavailable Unavail able Abhay Coppola MD Unavailable Yenni Parks MD Unavailable Unavail able Encounter Details Date Type Department Care Team Description 05/26/2022 Advanced Manufacturing Consultant Report Medical Records [address] [place] [id number] Fab Mckeon MD Social History Tobacco Use Types Packs/Day Years Used Date Smoking Tobacco: Never Smokeless Tobacco: Never Alcohol Use Standard Drinks/Week Comments Yes 0 (1 standard drink = 0.6 oz pur e alcohol) 2 drinks per mo Alcohol Habits Answer Date Recorded How often do you have a drink containing alcohol ? Never 08/14/2020 How many drinks containing a lcohol do you have on a typical day when you are drinking? Not asked How often do you have six or more drinks on one occasion? Not asked Sex Assigned at Date Recorded Not on file Job Start Date Occupation Industry Not on file Not on file Not on file COVID-19 Exposure Response Date Recorded In the last 10 days, have hannah u been in contact with someone who was confirmed or suspected to have Coronavirus/COVID-19? No / Unsure 05/21/2022 3:32 PM EST documented as of this encounter Plan of Treatment Not on file documented as of this encounter Visit Diagnoses Not on filedocumented in this encounter Care Teams Lean Coach Relationship Specialty Start Date End Date Tanja Larkin MD PCP - General Internal Medicine 01/14/22 Lázaro Mcguire MD [employer] 12/23/20 Kenisha Huang PA-C Specialist Cardiology 03/13/21 Dony Worrell MD Specialist Rheumatology 03/02/22 Emanuel Blair MD Specialist Neurology 03/02/22 Abhay Coppola MD [address] [place] [address] Specialist Pulmonology 03/02/22 Yenni Parks MD [address] [place] [address] Specialist Obstetrics/Gynecology 03/02/22 documented as of this encounter
--- OUTSIDE RECORDS SUMMARY | 2025-02-13 13:55 | XMS_ITS | Clinical Summary ---
Author Organization [facility] Address [address] [place] [phone] Phone Care Team Providers Care Produce Manager Name Role Phone Carlos Gonsales MD Primary Care Provider [phone] Social History Tobacco Use Types Packs/Day Years [...] Medical Devices Not on file Insurance [place]UE [place] OUT STATE PPO OUT [facility] PPO OUT [facility] PPO [employer] [place] OUT OF STATE PPO [facility] OUT OF STATE PPO [facility] OUT OF STATE PPO OUT [facility] [place] [address] [place] [address] PPO [employer] OUT OF STATE PPO Care Teams Produce Manager Relationship Specialty Start Date End Date Carlos Gonsales MD [address] [place] [address] PCP - General Internal Medicine 08/14/21 Additional Source Comments The information contained in this document represents components of the legal health record. It is not the complete legal health record.[facility]
--- OUTSIDE RECORDS SUMMARY | 2025-02-13 13:55 | XMS_ITS | Clinical Summary ---
Author Organization [employer] Address [address] [facility] [address] [place] [address] Care Team Providers Care Catalyst Recovery Operator Name Role Phone Unavailable Primary Care [...] TABLET FOUR TIMES DAILY Active nystatin (Mycostatin) 107074 UNIT/ML suspension Take 4 mL by mouth [...] Most Recently Relevant to Health Maintenance Insurance [facility]
== END 2025-02-13 13:58 | disposition home or self-care (01) ==
LOC: HO.PMC 13:02
PROVIDERS: PCP Internal Medicine; Visit Provider Registered Nurse Emergency
DX: M47.812 Spondylosis without myelopathy or radiculopathy, cervical region (principal); G89.4 Chronic pain syndrome
CPT/HCPCS: 99204

== ENCOUNTER 2025-04-09 13:51 | Outpatient (AMB) | payer BC, MEDICARE, SELFPAY ==
--- OUTSIDE RECORDS SUMMARY | 2024-06-05 05:30 | XMS_ITS ---
Author Organization [facility] [address] Address [address] [place] [address] Care Team Providers Care Client Reporting Associate Name Role Phone JOE COOLEY Primary Care Provider Unavailabl SADAF Varner Unavailable [phone] Maddi Pérez Unavailable [phone] Encounters Encounter Location Date Provider Diagnosis [facility] [address] [facility] [address] [place] [address] 06/05/2024 Maddi Pérez Plan Of Treatment Next Appt Details Provider Name:Maddi Pérez, 1 09:15:00 AM, [address], [address], [place], [address], Progress Notes * Kristy LIDOB:1970 ( 55 yo F)Acc No.[id number]:06/05/2024 Patient: Carlita RAYz Provider: Lucie Pérez PA-C :1970 A ge:54 Y S ex:Female Date:06/05/2024 Address:[address] [place], [place] [id number] Pcp:JOE COOLEY Subjective: * Chief Complaints: * * Medical History: Objective: * Vitals: Assessment: Plan: * Treatment: * Images: Billing Information: * Visit Code: * Procedure Codes: * Electronic signature of Maddi Pérez PA-C on 04/09/2025 at 04:52 PM EDT Sign off status: Pending * Provider: Lucie Pérez PA-C Date: 1 08/06/2023 Generated for Savi Gibsong/Carlos Eduardo on: 1 04:52 PM EDT
--- OUTSIDE RECORDS SUMMARY | 2024-07-24 05:30 | XMS_ITS ---
Author Organization [facility] [address] Address [address] [place] [address] Care Team Providers Care Chore Tender Name Role Phone JOE COOLEY Primary Care Provider Unavailabl SADAF Varner Unavailable [phone] Maddi Pérez Unavailable [phone] Encounters Encounter Location Date Provider Diagnosis [facility] [address] [facility] [address] [place] [address] 07/24/2024 Maddi Pérez Plan Of Treatment Next Appt Details Provider Name:Maddi Pérez, 1 09:15:00 AM, [address], [address], [place], [address], Progress Notes * Kristy LIDOB:1970 ( 55 yo F)Acc No.[id number]:07/24/2024 Patient: Narinder TATE Kristy Provider: Lucie Pérez PA-C :1970 A ge:54 Y S ex:Female Date:07/24/2024 Address:[address] [place], [place] [phone] Pcp:JOE COOLEY Subjective: * Chief Complaints: * * Medical History: Objective: * Vitals: Assessment: Plan: * Treatment: * Images: Billing Information: * Visit Code: * Procedure Codes: * Electronic signature of Maddi Pérez PA-C on 04/09/2025 at 04:53 PM EDT Sign off status: Pending * Provider: Lucie Pérez PA-C Date: 0 07/24/2024 Generated for Savi Gibsong/Carlos Eduardo on: 1 04:53 PM EDT
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
--- OUTSIDE RECORDS SUMMARY | 2025-04-09 16:52 | XMS_ITS | Encounter Summary ---
Author Organization [facility] Address [address] [place] [address] [address] [place] [address] Care Team Providers Care Machine Bobbin Winder Name Role Phone Unavailable Primary Care Provider Unavailabl e Reason for Visit * Reason Onset Date Comments Extraction 03/22/2024 Encounter Details Date Type Department Care Team (Late st Contact Info) Description 03/22/2024 Telephone [facility] [address] [place] [address] Lopez Gill BDNicky [address] [place] [address] Extraction Social History Tobacco Use Types Packs/Day [...]
--- OUTSIDE RECORDS SUMMARY | 2025-04-09 16:52 | XMS_ITS | Clinical Summary ---
Author Organization [facility] Address [address] [place] [id number] Phone Care Team Providers Care Mental Health Director Name Role Phone Carlos Gonsales MD Primary Care Provider [phone] Social History Tobacco Use Types Packs/Day Years [...] Medical Devices Not on file Insurance BLUE [place] OUT STATE PPO OUT [facility] PPO OUT [facility] PPO [employer] [place] OUT OF STATE PPO [facility] OUT OF STATE PPO [facility] OUT OF STATE PPO OUT [facility] [place] [address] [place] [address] PPO [employer] [place] OUT OF STATE PPO Care Teams Mental Health Director Relationship Specialty Start Date End Date Carlos Gonsales MD [address] [place] [address] PCP - General Internal Medicine 08/14/21 Additional Source Comments The information contained in this document represents components of the legal health record. It is not the complete legal health record.[facility]
--- OUTSIDE RECORDS SUMMARY | 2025-04-09 16:53 | XMS_ITS | Clinical Summary ---
Author Organization [employer] Address [address] [facility] [address] [place] [address] Care Team Providers Care Second Shift Supervisor Name Role Phone Unavailable Primary Care Provider [...] TABLET FOUR TIMES DAILY Active nystatin (Mycostatin) 544618 UNIT/ML suspension Take 4 mL by mouth [...] 10/26/2018 10/26/2017 Dental Oral Exam 12/17/2022 06/17/2022 Dental Prophylaxis 10/13/2024 04/13/2024, 06/17/2022 COVID-19 Vaccine ( season) 2025 03/22/2023, 05/09/2022, 09/29/2021, Additional history exists Influenza Vaccine (#1) 2025 [...] Most Recently Relevant to Health Maintenance Insurance [facility]
--- OUTSIDE RECORDS SUMMARY | 2025-04-09 16:53 | XMS_ITS | Patient Health Record ---
Author Organization [facility] [address] Address [address] [place] [address] Care Team Providers Care Range Ecologist Name Role Phone JOE COOLEY Primary Care Provider SADAF Son Unavailable [phone] Maddi Pérez Unavailable [phone] Allergies Allergen (clinical drug ingredient) Drug/Non Drug Allergy documented on EMR Reaction Allergy Type Onset Date Status acetaminophen / oxycodone Percocet Unknown Drug Allergy Active codeine Codeine Unknown Drug Allergy Active ibuprofen Ibuprofen Unknown Drug Allergy Active Results Component Value Reference Range Notes HEMOGLOBIN A1C Reviewed date:03/12/2025 03:09:17 PM Interpretation: Performing Lab: Notes/Report: Hemoglobin A1C 5.3 <6.5 % Mean Bld Glu Estim. 105 THYROID STIMULATING HORMONE WITH REFLEX TO FREE T4 AND FREE T3 Reviewed date:03/12/2025 03:08:42 PM Interpretation: Performing Lab: Notes/Report: TSH 1.41 0.40-4.00 mcIU/mL LIPID PANEL WITH REFLEX TO D IRECT LDL Reviewed date:03/12/2025 03:09:10 PM Interpretation: Performing Lab: Notes/Report: Cholesterol 267 0-200 mg/dL Results verifie d by repeat testing Triglycerides 145 0-150 mg/dL HDL 75 >=40 mg/dL LDL Calculated 163 0-100 mg/dL Estimated LDL Calculated using equation: Total cholesterol - HDL cholesterol - (Triglycerides/5) VLDL Cholesterol Hollis 29 Non HDL Chol. (LDL+VLDL) 192 <145 mg/dL Chol/HDL Ratio 3.6 0.0-4.4 CBC WITH AUTO DIFFERENTIAL Reviewed date:03/12/2025 12:29:15 PM Interpretation: Performing Lab: Notes/Report: WBC 7.0 4.8-10.8 K/mcL RBC 4.60 3.80-4.80 M/mcL Hemoglobin 13.1 11.5-16.0 g/dL Hematocrit 40.8 35.0-47.0 % MCV 89.3 79.0-98.0 FL MCH 28.7 27.0-32.0 pcg MCHC 32.1 32.0-37.0 g/dL RDW 14.0 11.0-15.0 % Platelets 400 130-400 K/mcL MPV 9.5 7.0-11.0 FL NRBC 0.0 <1.0 % NRBC Absolute 0.00 <0.10 K/mcL Neutrophils Relative 56.0 Lymphocytes Relative 32.7 Monocytes Relative 10.2 Eosinophils Relative 0.4 Basophils Relative 0.4 Immature Granulocytes Relative 0.3 Neutrophils Absolute 3.90 1.50-7.00 K/mcL Lymphocytes Absolute 2.28 1.00-5.00 K/mcL Monocytes Absolute 0.71 0.20-1.00 K/mcL Eosinophils Absolute 0.03 0.00-0.50 K/mcL Basophils Absolute 0.03 0.00-0.20 K/mcL Immature Granulocytes Absolute 0.02 0.00-0.03 K/mcL COMPREHENSIVE METABOLIC PANE L Reviewed date:03/12/2025 01:56:31 PM Interpretation: Performing Lab: Notes/Report: Sodium 139 133-145 mmol/L Potassium 3.5 3.5-5.5 mmol/L Chloride 106 96-110 mmol/L CO2 26 21-32 mmol/L Anion Gap 7 3-11 Glucose 113 70-100 mg/dL BUN 19 5-25 mg/dL Creatinine 0.69 0.50-1.10 mg/dL eGFR 102 >=60 mL/min/1.73m2 Calculati on based on the Chronic Kidney Disease Epidemiology Collaboration (CKD-EPI) equation refit without adjustment for race. BUN/Creatinine Ratio 27.5 Calcium 8.9 8.5-10.5 mg/dL AST (SGOT) 13 10-42 unit/L ALT (SGPT) 24 10-60 unit/L Alkaline Phosphatase 100 42-121 unit/L Total Protein 6.7 6.0-8.0 g/dL Albumin 3.6 3.2-5.0 g/dL Total Bilirubin 0.3 0.0-1.4 mg/dL Reason For Referral No Information Medications Medication SIG (Take, Route, Frequency, Duration) Notes Start Date End Date Status Potassium Chloride ER 10 MEQ TAKE ONE CAPSULE TWICE DAILY Oral; Duration: 30 Days Active Calcium Carb-Cholecalciferol 600-10 MG-MCG TAKE ONE TABLET TWICE DAILY Oral; Duration: 90 Days Active Montelukast Sodium 10 MG Oral; Duration: 90 Days Active Nitrofurantoin Monohyd Macro 100 MG TAKE 1 CAPSULE TWICE A DAY FOR 7 DAYS Oral; Duration: 7 Days Active traZODone HCl 50 MG TAKE 1/2 TO 1 TABLET EVERY NIGHT AT BEDTIME NEEDED FOR SLEEP Oral; Duration: 30 Days Active Sucralfate 1 GM Oral; Duration: 30 Days Active Dupixent 300 MG/2ML Subcutaneous; Duration: 28 Days Active Cetirizine HCl 10 MG TAKE ONE TABLET BY MOUTH TWICE DAILY Oral; Duration: 90 Days Active Albuterol Sulfate (2.5 MG/3ML) 0.083% PLEASE SEE ATTACHED FOR DETAILED DIRECTIONS Inhalation; Duration: 12 Days Active Atorvastatin Calcium 20 MG TAKE ONE TABL ET DAILY Oral; Duration: 90 Days Active Trelegy Ellipta 100-62.5-25 MCG/ACT Inhalation; Duration: 30 Days Active Breztri Aerosphere 160-9-4.8 MCG/ACT Inhalation; Duration: 30 Days Active Pantoprazole Sodium 40 MG TAKE ONE TABLE T EVERY DAY Oral; Duration: 90 Days Active Zepbound 2.5 MG/0.5ML INJECT 0.5 ML SUBCUTANEOUSLY WEEKLY; Duration: 30 Active hydroCHLOROthiazide 12.5 MG TAKE ONE CAPSULE DAILY Oral; Duration: 30 Days Active Trulance 3 MG Oral; Duration: 90 Days Active Cymbalta 30 MG 1 capsule Orally Onc e a day twice daily Active Social History Tobacco Use: Social History Observation Description Date Details (start date - stop date) Never Smoker NA - NA Tobacco Use/Smoking Question Answer Notes Are you a nonsmoker Alcohol Screen (Audit-C) Question Answer Notes Did you have a drink contain ing alcohol in the past year? Yes How often did you have a dri nk containing alcohol in the past year? Monthly or less (1 point) Points 1 Interpretation Negative Problems Problem Type SNOMED Code ICD Code Onset Dates Problem Status W/U Status Risk Notes Problem Obesity due to excess calories (724892569) Other obesity due to excess calories (E66.09) Active confirmed Problem Overweight (333711598) Overweight (E66.3) Active confirmed Problem Anxiety disorder (630760947) Anxiety disorder, unspecified (F41.9) Active confirmed Problem Fibromyalgia (085667354) Fibromyalgia (M79.7) Active confirmed Problem Essential hypertension (99987934) Essential hypertension (I10) Active confirmed Problem BMI 25-29 - overweight (999626126) Body mass index [BMI] 29.0-29.9, adult (Z68.29) Active confirmed Problem Body mass index 30.00 to 34.99 (675486328740270 ) Body mass index [BMI] 32.0-32.9, adult (Z68.32) Active confirmed Problem Body mass index 30.00 to 34.99 (582545248761800 ) BMI 31.0-31.9,adult (Z68.31) Active confirmed Problem Depression (323076021) Depression, unspecified (F32.A) Active confirmed Problem Obesity (468276642) Obesity (E66.9) Active confirmed Problem History of asthma (425239872) History of asthma (Z87.09) Active confirmed Vital Signs Heart Rate 71 /min 03/12/2025 Blood pressure diastolic 80 mm Hg 03/12/2025 Oximetry 99 % 03/12/2025 Height 59 in 03/12/2025 Blood pressure systolic 128 mm Hg 03/12/2025 Weight 155.4 lbs 03/12/2025 BMI 31.38 kg/m2 03/12/2025 Encounters Encounter Location Date [facility] [address] [address] 04/11/2024 Maddi Svrcek Other obesity due to excess calories E66.09 ; BMI 31.0-31.9,adult Z68.31 ; Essential hypertension I10 ; Anxiety disorder, unspecified F41.9 ; Depression, unspecified F32.A ; Fibromyalgia M79.7 and Weight loss counseling, encounter for Z71.3 [facility] [address] [address] 05/09/2024 Maddi Svrcek Overweight E66.3 ; B jessica mass index [BMI] 29.0-29.9, adult Z68.29 ; Essential hypertension I10 ; Anxiety disorder, unspecified F41.9 ; Depression, unspecified F32.A ; Fibromyalgia M79.7 and Weight loss counseling, encounter for Z71.3 [facility] [address] 06/13/2024 Maddi Svrcek Overweight E66.3 ; B AK 28.0-28.9,adult Z68.28 ; Essential hypertension I10 ; Anxiety disorder, unspecified F41.9 ; Depression, unspecified F32.A ; Fibromyalgia M79.7 and Weight loss counseling, encounter for Z71.3 [facility] [address] 03/12/2025 Maddi Svrcek Obesity E66.9 ; BMI 31.0-31.9,adult Z68.31 ; Essential hypertension I10 ; Anxiety disorder, unspecified F41.9 ; Depression, unspecified F32.A ; Fibromyalgia M79.7 and Weight loss counseling, encounter for Z71.3 [facility] [address] 05/09/2024 Maddi Svrcek [facility] [address] 05/31/2024 Maddi Svrcek [facility] [address] [place], [place] 03/06/2025 Maddi Svrcek [facility] [address] 03/08/2025 SADAF WANG [facility] [address] [place] [address] 03/11/2025 SADAF WANG [facility] [address] 03/12/2025 Maddi Svrcek Other obesity due to excess calories E66.[address] [facility] [address] [place], [place] 03/20/2025 SADAF WANG Assessments Encounter Date Diagnosis (ICD Code) Assessment [...] Dictation was accomplished with the use of Mingxieku voice recognition software, prone to medical misidentifications [...] Dictation was accomplished with the use of [employer] voice recognition software, prone to medical misidentifications [...] Dictation was accomplished with the use of [employer] voice recognition software, prone to medical misidentifications [...] Dictation was accomplished with the use of [employer] voice recognition software, prone to medical misidentifications [...] Dictation was accomplished with the use of [employer] voice recognition software, prone to medical misidentifications [...] Dictation was accomplished with the use of [employer] voice recognition software, prone to medical misidentifications and grammatical errors. This is unintentional and the practitioner does try to identify and correct these, but some could still be present. Please do not hesitate to contact practitioner for clarification. All questions answered to patients satisfaction. Patient verbalized understanding of diagnosis and treatments explained. To call sooner prior to next visit it any questions/concerns arise. 03/12/2025 BMI 31.0-31.9,adult (ICD-10 - Z68.31) #Obesity. 03/12/25: 155.2, BMI 31.3. Kristy is back after 9-month hiatus. She was previously on Zepbound and had done quite well. She is interested in restarting. She does have 2-month supply of 5 mg dose at home. Will restart at 2.5 mg. Of note her insurance will be changing next month. We discussed that unclear if these medications will be covered. Discussed importance of healthy diet with a focus on protein intake, fresh fruits and vegetables. Continue to work on regular exercise including resistance training as she continues to heal from her recent knee surgery. Will get updated labs and follow-up with me in 1 month. #Hypertension. Followed by PCP. Controlled. #Anxiety and [...] Dictation was accomplished with the use of [employer] voice recognition software, prone to medical misidentifications and grammatical errors. This is unintentional and the practitioner does try to identify and correct these, but some could still be present. Please do not hesitate to contact practitioner for clarification. All questions answered to patients satisfaction. Patient verbalized understanding of diagnosis and treatments explained. To call sooner prior to next visit it any questions/concerns arise. 03/12/2025 Obesity (ICD-10 - E66.9) #Obesity. 03/12/25: 155.2, BMI 31.3. Kristy is back after 9-month hiatus. She was previously on Zepbound and had done quite well. She is interested in restarting. She does have 2-month supply of 5 mg dose at home. Will restart at 2.5 mg. Of note her insurance will be changing next month. We discussed that unclear if these medications will be covered. Discussed importance of healthy diet with a focus on protein intake, fresh fruits and vegetables. Continue to work on regular exercise including resistance training as she continues to heal from her recent knee surgery. Will get updated labs and follow-up with me in 1 month. #Hypertension. Followed by PCP. Controlled. #Anxiety and [...] Dictation was accomplished with the use of [employer] voice recognition software, prone to medical misidentifications and grammatical errors. This is unintentional and the practitioner does try to identify and correct these, but some could still be present. Please do not hesitate to contact practitioner for clarification. All questions answered to patients satisfaction. Patient verbalized understanding of diagnosis and treatments explained. To call sooner prior to next visit it any questions/concerns arise. 03/12/2025 Other obesity due to excess calories (ICD-10 - E66.09) Electronic Prior Authorization was requested for Zepbound 5 MG/0.5ML Solution Auto-injector. Provider can order medication once approval received. 06/13/2024 Essential hypertension (ICD-10 - I10) #Obesity. [...] Dictation was accomplished with the use of [employer] voice recognition software, prone to medical misidentifications and grammatical errors. This is unintentional and the practitioner does try to identify and correct these, but some could still be present. Please do not hesitate to contact practitioner for clarification. All questions answered to patients satisfaction. Patient verbalized understanding of diagnosis and treatments explained. To call sooner prior to next visit it any questions/concerns arise. 03/12/2025 Essential hypertension (ICD-10 - I10) #Obesity. 03/12/25: 155.2, BMI 31.3. Kristy is back after 9-month hiatus. She was previously on Zepbound and had done quite well. She is interested in restarting. She does have 2-month supply of 5 mg dose at home. Will restart at 2.5 mg. Of note her insurance will be changing next month. We discussed that unclear if these medications will be covered. Discussed importance of healthy diet with a focus on protein intake, fresh fruits and vegetables. Continue to work on regular exercise including resistance training as she continues to heal from her recent knee surgery. Will get updated labs and follow-up with me in 1 month. #Hypertension. Followed by PCP. Controlled. #Anxiety and [...] Dictation was accomplished with the use of [employer] voice recognition software, prone to medical misidentifications [...] Dictation was accomplished with the use of [employer] voice recognition software, prone to medical misidentifications [...] Dictation was accomplished with the use of [employer] voice recognition software, prone to medical misidentifications [...] Dictation was accomplished with the use of [employer] voice recognition software, prone to medical misidentifications [...] Dictation was accomplished with the use of [employer] voice recognition software, prone to medical misidentifications and grammatical errors. This is unintentional and the practitioner does try to identify and correct these, but some could still be present. Please do not hesitate to contact practitioner for clarification. All questions answered to patients satisfaction. Patient verbalized understanding of diagnosis and treatments explained. To call sooner prior to next visit it any questions/concerns arise. 03/12/2025 Anxiety disorder, unspecified (ICD-10 - F41.9) #Obesity. 03/12/25: 155.2, BMI 31.3. Kristy is back after 9-month hiatus. She was previously on Zepbound and had done quite well. She is interested in restarting. She does have 2-month supply of 5 mg dose at home. Will restart at 2.5 mg. Of note her insurance will be changing next month. We discussed that unclear if these medications will be covered. Discussed importance of healthy diet with a focus on protein intake, fresh fruits and vegetables. Continue to work on regular exercise including resistance training as she continues to heal from her recent knee surgery. Will get updated labs and follow-up with me in 1 month. #Hypertension. Followed by PCP. Controlled. #Anxiety and [...] Dictation was accomplished with the use of [employer] voice recognition software, prone to medical misidentifications [...] Dictation was accomplished with the use of [employer] voice recognition software, prone to medical misidentifications [...] Dictation was accomplished with the use of [employer] voice recognition software, prone to medical misidentifications [...] Dictation was accomplished with the use of [employer] voice recognition software, prone to medical misidentifications [...] Dictation was accomplished with the use of [employer] voice recognition software, prone to medical misidentifications and grammatical errors. This is unintentional and the practitioner does try to identify and correct these, but some could still be present. Please do not hesitate to contact practitioner for clarification. All questions answered to patients satisfaction. Patient verbalized understanding of diagnosis and treatments explained. To call sooner prior to next visit it any questions/concerns arise. 03/12/2025 Depression, unspecified (ICD-10 - F32.A) #Obesity. 03/12/25: 155.2, BMI 31.3. Kristy is back after 9-month hiatus. She was previously on Zepbound and had done quite well. She is interested in restarting. She does have 2-month supply of 5 mg dose at home. Will restart at 2.5 mg. Of note her insurance will be changing next month. We discussed that unclear if these medications will be covered. Discussed importance of healthy diet with a focus on protein intake, fresh fruits and vegetables. Continue to work on regular exercise including resistance training as she continues to heal from her recent knee surgery. Will get updated labs and follow-up with me in 1 month. #Hypertension. Followed by PCP. Controlled. #Anxiety and [...] Dictation was accomplished with the use of [employer] voice recognition software, prone to medical misidentifications [...] Dictation was accomplished with the use of [employer] voice recognition software, prone to medical misidentifications [...] Dictation was accomplished with the use of [employer] voice recognition software, prone to medical misidentifications and grammatical errors. This is unintentional and the practitioner does try to identify and correct these, but some could still be present. Please do not hesitate to contact practitioner for clarification. All questions answered to patients satisfaction. Patient verbalized understanding of diagnosis and treatments explained. To call sooner prior to next visit it any questions/concerns arise. 03/12/2025 Fibromyalgia (ICD-10 - M79.7) #Obesity. 03/12/25: 155.2, BMI 31.3. Kristy is back after 9-month hiatus. She was previously on Zepbound and had done quite well. She is interested in restarting. She does have 2-month supply of 5 mg dose at home. Will restart at 2.5 mg. Of note her insurance will be changing next month. We discussed that unclear if these medications will be covered. Discussed importance of healthy diet with a focus on protein intake, fresh fruits and vegetables. Continue to work on regular exercise including resistance training as she continues to heal from her recent knee surgery. Will get updated labs and follow-up with me in 1 month. #Hypertension. Followed by PCP. Controlled. #Anxiety and [...] Dictation was accomplished with the use of [employer] voice recognition software, prone to medical misidentifications [...] Dictation was accomplished with the use of [employer] voice recognition software, prone to medical misidentifications [...] Dictation was accomplished with the use of [employer] voice recognition software, prone to medical misidentifications [...] Dictation was accomplished with the use of [employer] voice recognition software, prone to medical misidentifications [...] Dictation was accomplished with the use of [employer] voice recognition software, prone to medical misidentifications and grammatical errors. This is unintentional and the practitioner does try to identify and correct these, but some could still be present. Please do not hesitate to contact practitioner for clarification. All questions answered to patients satisfaction. Patient verbalized understanding of diagnosis and treatments explained. To call sooner prior to next visit it any questions/concerns arise. 03/12/2025 Weight loss counseling, encounter for (ICD-10 - Z71.3) #Obesity. 03/12/25: 155.2, BMI 31.3. Kristy is back after 9-month hiatus. She was previously on Zepbound and had done quite well. She is interested in restarting. She does have 2-month supply of 5 mg dose at home. Will restart at 2.5 mg. Of note her insurance will be changing next month. We discussed that unclear if these medications will be covered. Discussed importance of healthy diet with a focus on protein intake, fresh fruits and vegetables. Continue to work on regular exercise including resistance training as she continues to heal from her recent knee surgery. Will get updated labs and follow-up with me in 1 month. #Hypertension. Followed by PCP. Controlled. #Anxiety and [...] Dictation was accomplished with the use of [employer] voice recognition software, prone to medical misidentifications [...] next visit it any questions/concerns arise. 04/11/2024 #Obesity. 04/11/24: 03/15/24: 160.7 pounds, BMI 32.5. [...] track activity level. Consider using apps like Bikmo, [employer], lose it, stick as needed for self-monitoring and weight management. Consider group exercises. Consider hiring a personal chef. Regular exercise is mccurdy to sustainable health [...] counseling and psychiatry and Dr Iniguez at [facility]. We would like to cover regular topics [...] Dictation was accomplished with the use of [employer] voice recognition software, prone to medical misidentifications [...] it any questions/concerns arise. Plan Of Treatment Pending Test Test Name Order Date LIPID PANEL, STANDARD 03/12/2025 COMPREHENSIVE METABOLIC PANEL 03/12/2025 CBC (INCLUDES DIFF/PLT) 03/12/2025 HEMOGLOBIN A1c 03/12/2025 TSH W/REFLEX TO FT4 03/12/2025 Next Appt Details Provider Name:Maddi Pérez, 1 09:15:00 AM, [address] [facility], [facility] [address], [place], [address], Insurance Providers Payer Name Payer Address Payer Phone Subscriber Number Group Number Insured Name Patient Relationship to Insured Coverage Start Date Coverage End Date [facility] [address] [place] [address] [id number] Kristy Li Self - patient is the insured Medical (General) History Medical History History ICD Code seasonal allergies hypertension hypercholesterolemia asthma weight gain/loss gallbladder disease Arthritis heart murmur anxiety depression hearing loss Surgical History Surgery Date(Month/Year) cholecystectomy 11/28/23 biliary dyskinesia raised her bladder right TKR 12/2024
--- OUTSIDE RECORDS SUMMARY | 2025-04-09 16:53 | XMS_ITS | Encounter Summary ---
Author Organization [employer] Address [address] [place] [address] Care Team Providers Care Port Crane Operator Name Role Phone Unavailable Primary Care Provider Unavailabl e Reason for Visit * Reason Comments Med Refill Encounter Details Date Type Department Care Team (Late st Contact Info) Description 04/10/2024 Refill [facility] [address] [place] [address] Chet Wade DDS [address] [place] [address] Social History Tobacco Use Types Packs/Day Years [...]
--- OUTSIDE RECORDS SUMMARY | 2025-04-09 16:53 | XMS_ITS | Encounter Summary ---
Author Organization [employer] Address [address] [place] [address] Care Team Providers Care Truck Driver Salesperson Name Role Phone Unavailable Primary Care Provider Unavailabl e Reason for Visit * Reason Onset Date Comments walking in 12/19/2023 Encounter Details Date Type Department Care Team (Late st Contact Info) Description 12/19/2023 [facility]phone [facility] [address] [place] [address] Lopez Gill BDS [address] [place] [address] walking in Social History Tobacco Use Types [...] Ordaz - 12/19/2023 12:47 PM EDT Contacted [facility] and frontload driver informed if patient is looking to be [...]
--- OUTSIDE RECORDS SUMMARY | 2025-04-09 16:53 | XMS_ITS | Encounter Summary ---
Author Organization [employer] [facility] Address [address] [place] [address] [address] [place] [address] Care Team Providers Care Brick Molder Hand Name Role Phone Unavailable Primary Care Provider Unavailabl e Reason for Visit * Reason Comments Med Refill Encounter Details Date Type Department Care Team (Late st Contact Info) Description 05/31/2024 Refill [facility] [address] [place] [address] Chet Wade DDS [address] [place] [address] Social History Tobacco Use Types Packs/Day Years [...]
--- OUTSIDE RECORDS SUMMARY | 2025-04-09 16:53 | XMS_ITS | Encounter Summary ---
Author Organization [employer] Address [address] [facility] 7 [place] [address] Care Team Providers Care Sand Cutter Name Role Phone Unavailable Primary Care Provider Unavailabl e Reason for Visit * Reason Onset Date Comments referral for Oral Surgery 09/14/2024 Encounter Details Date Type Department Care Team (Late st Contact Info) Description 09/14/2024 Telephone [facility] ADULT DENTAL [address] [place] [address] Mert Giang [address] [place] [address] referral for Oral Surgery Social History Tobacco [...] stating that she went to the front clerk and informed no documentation had been sent concerning patient request for referral. However documentation was sent to provider as opposed to front clerk seeing that providers provide referrals. Also sending to Jose the event she was calling patient concerning cancelled Oral Surgery appt for September. Patient called in seeking referral to go to an oral surgeon for a lesion on her tongue. Patient active requested since 03/2024 and was able to get in elsewhere sooner. Provider will prepare referral and patient will come to pick up driver after having received call from front clerk that referral is ready. Patient questioned how soon it would be ready. I was explained to patient that I did not have an official timeframe, however office will reach out to her and she can pick up driver once it is ready. Patient is concerned [...] prepare referral and patient will come to pick up driver after having received call from front clerk that referral is ready. Patient questioned how soon it would be ready. I was explained to patient that I did not have an official timeframe, however office will reach out to her and she can pick up driver once it is ready. Patient is concerned [...]
--- OUTSIDE RECORDS SUMMARY | 2025-04-09 16:53 | XMS_ITS | Encounter Summary ---
Author Organization [employer] Address [address] [facility] 7t [place] [address] Care Team Providers Care Digital Commentator Name Role Phone Sudarshan Hdz MD Primary [...] on filedocumented in this encounter Care Teams Digital Commentator Relationship Specialty Start Date End Date Sudarshan Hdz MD [address] [place] [address] PCP - General Internal Medicine 11/27/19 06/30/23 documented as of this encounter
== END 2025-04-09 15:15 | disposition home or self-care (01) ==
LOC: HO.HSM 13:52
PROVIDERS: PCP Internal Medicine; Referring Provider Internal Medicine; Visit Provider Registered Nurse
DX: M79.7 Fibromyalgia (principal); R42 Dizziness and giddiness; M50.90 Cervical disc disorder, unspecified, unspecified cervical region
CPT/HCPCS: 99214

== ENCOUNTER 2025-05-09 08:16 | Outpatient (AMB) | payer MEDICARE, MEDICAID, SELFPAY ==
--- OUTSIDE RECORDS SUMMARY | 2024-04-11 04:00 | XMS_ITS ---
[facility] Address [address] [place] [address] Care Team Providers Care Cardiac Tech Name Role Phone JOE COOLEY Primary Care Provider SADAF Son Unavailable [phone] Maddi Pérez Unavailable [phone] Medications Medication SIG (Take, Route, Frequency, Duration) [...] Date Provider Diagnosis [facility] [address] [address] 04/11/2024 Maddi Pérez Other obesity due to [...] track activity level. Consider using apps like [employer]PropertyData, EatStreetpal, lose it, stick as needed for self-monitoring and weight management. Consider group exercises. Consider hiring a head athletic trainer. Regular exercise is mccurdy to sustainable health [...] counseling and psychiatry and Dr Iniguez at [facility]. We would like to cover regular topics [...] Dictation was accomplished with the use of Solar[employer] voice recognition software, prone to medical misidentifications [...] track activity level. Consider using apps like [employer], EatStreetpal, lose it, stick as needed for self-monitoring and weight management. Consider group exercises. Consider hiring a head athletic trainer. Regular exercise is mccurdy to sustainable health [...] counseling and psychiatry and Dr Iniguez at [facility]. We would like to cover regular topics [...] Dictation was accomplished with the use of [employer] voice recognition software, prone to medical misidentifications [...] track activity level. Consider using apps like [employer], EatStreetpal, lose it, stick as needed for self-monitoring and weight management. Consider group exercises. Consider hiring a head athletic trainer. Regular exercise is mccurdy to sustainable health [...] counseling and psychiatry and Dr Iniguez at [facility]. We would like to cover regular topics [...] Dictation was accomplished with the use of [employer] voice recognition software, prone to medical misidentifications [...] track activity level. Consider using apps like [employer], EatStreetpal, lose it, stick as needed for self-monitoring and weight management. Consider group exercises. Consider hiring a head athletic trainer. Regular exercise is mccurdy to sustainable health [...] counseling and psychiatry and Dr Iniguez at [facility]. We would like to cover regular topics [...] Dictation was accomplished with the use of [employer] voice recognition software, prone to medical misidentifications [...] track activity level. Consider using apps like [employer], EatStreetpal, lose it, stick as needed for self-monitoring and weight management. Consider group exercises. Consider hiring a head athletic trainer. Regular exercise is mccurdy to sustainable health [...] counseling and psychiatry and Dr Iniguez at [facility]. We would like to cover regular topics [...] Dictation was accomplished with the use of [employer] voice recognition software, prone to medical misidentifications [...] track activity level. Consider using apps like [employer]Property[employer], EatStreetpal, lose it, stick as needed for self-monitoring and weight management. Consider group exercises. Consider hiring a head athletic trainer. Regular exercise is mccurdy to sustainable health [...] counseling and psychiatry and Dr Iniguez at [facility]. We would like to cover regular topics [...] Dictation was accomplished with the use of [employer] voice recognition software, prone to medical misidentifications [...] track activity level. Consider using apps like [employer]Property[employer], myfitnesspal, lose it, stick as needed for self-monitoring and weight management. Consider group exercises. Consider hiring a head athletic trainer. Regular exercise is mccurdy to sustainable health [...] counseling and psychiatry and Dr Iniguez at [facility]. We would like to cover regular topics [...] Dictation was accomplished with the use of [employer] voice recognition software, prone to medical misidentifications [...] track activity level. Consider using apps like ePropertyData, myfitRendeevoopal, lose it, stick as needed for self-monitoring and weight management. Consider group exercises. Consider hiring a head athletic trainer. Regular exercise is mccurdy to sustainable health [...] counseling and psychiatry and Dr Iniguez at [facility]. We would like to cover regular topics [...] Dictation was accomplished with the use of [employer] voice recognition software, prone to medical misidentifications [...] specialist- Dr. Umanzor Will be starting with sourcing specialist PMH: Asthma, fibromyalgia, depression, anxiety, lung granuloma, [...] 156, tg 178, hdl 56, ldl 65 [facility]- therapist. Ewa pierre, currently on [...] * Kristy LIDOB:1970 ( 55 yo F)Acc No.[id number]:04/11/2024 Patient: Kristy Torres Provider: Lucie Pérez PA-C :1970 A ge:54 Y S ex:Female Date:04/11/2024 Address:[address] [place], [place] [id number] Pcp:JOE COOLEY Subjective: * Chief Complaints: * [...] specialist- Dr. Umanzor Will be starting with sourcing specialist PMH: Asthma, fibromyalgia, depression, anxiety, lung granuloma, [...] 156, tg 178, hdl 56, ldl 65 [facility]- therapist. Ewa pierre, currently on [...] track activity level. Consider using apps like [employer]Property[employer], EatStreetpal, lose it, stick as needed for self-monitoring and weight management. Consider group exercises. Consider hiring a head athletic trainer. Regular exercise is mccurdy to sustainable health [...] counseling and psychiatry and Dr Iniguez at [facility]. We would like to cover regular topics [...] Dictation was accomplished with the use of [employer] voice recognition software, prone to medical misidentifications [...] OFFICE VISIT Billing Information: * Procedure Codes: 71085 NO SHOW OFFICE VISIT. * Electronic signature of Maddi Pérez PA-C on 05/09/2025 at 08:26 AM EST Sign off status: Pending * Provider: Lucie Pérez PA-C Date: Generated for Savi altamirano/Eric/Carlos Eduardo on: 07/09/2024 08:26 AM EST
--- OUTSIDE RECORDS SUMMARY | 2025-04-11 04:15 | XMS_ITS ---
Author Organization [facility] [address] Address [address] [place] [address] Care Team Providers Care Hogshead Cooper Name Role Phone JOE COOLEY Primary Care Provider UnavailSADAF Knox Unavailable [phone] Maddi Pérez Unavailable [phone] Encounters Encounter Location Date Provider Diagnosis [facility] [address] [address] 04/11/2025 Maddi Pérez Plan Of Treatment No Information Progress Notes * Kristy LIDOB:1970 ( 55 yo F)Acc No.[id number]:04/11/2025 Patient: Narinder Kristy davalos Provider: Lucie Pérez PA-C :1970 A ge:55 Y S ex:Female Date:04/11/2025 Address:[address] [place], [place] [id number] Pcp:JOE COOLEY * Electronic signature of Maddi Pérez PA-C on 05/09/2025 at 08:27 AM EST Sign off status: Pending * Provider: Lucie Pérez PA-C Date: Generated for Savi altamirano/Eric/eTransmitting on: 07/09/2024 08:27 AM EST
[2025-05-09 08:20] VITALS: BP 170/122; PULSE 101; O2SAT 96; BMI 30.3
--- NOTE | 2025-05-09 08:20 | MHC.OFFVIS ---
Vital Signs 05/09/25 08:20 Height 5 ft 1 in Weight 160 lb 7.944 oz BMI 30.3 BP 170/122 H Blood Pressure Location Rt brachial Position Sitting Pulse 101 H Pulse Source Pulse Oximeter Pulse Oximetry (%) 96 Oxygen Delivery Method Room Air Comment B/p left arm 150/110 Intake Visit Reasons: 3 Months Intake Note: Pt seen today for OA follow up. Accompanied by: Self / Same As Patient Allergies aspirin (ASPIRIN) Allergy (Intermediate, Verified 05/09/25 08:20) STOMACH UPSET NSAIDS (Non-Steroidal Anti-Inflamma Allergy (Mild, Verified 05/09/25 08:20) Stomach Upset acetaminophen (Percocet) Allergy (Unknown, Verified 05/09/25 08:20) Unknown codeine (CODEINE) Adverse Reaction (Intermediate, Verified 05/09/25 08:20) STOMACH UPSET oxycodone (From PERCOCET) Adverse Reaction (Intermediate, Verified 05/09/25 08:20) STOMACH UPSET Lactose Allergy (Unknown, Uncoded 04/09/25 14:13) Unknown HPI HPI 3 Months: Details: She feels woozy. She had high blood pressure at her visit in March with a provider. Yesterday her BP was normal 120/80 per patient at a visit. She took her BP meds this morning. She had benefit with bilateral trochanteric bursa injections but pain has returned. REPLACED BY [facility] Medical History (Updated 05/09/25 @ 08:52 by Yuval Rodriguez MD) FH: cholecystectomy Osteoarthritis, hand Osteoarthritis of knees, bilateral Fibromyalgia Surgical History (Updated 04/22/25 @ 15:19 by Jody Belle CMA) Hx of cholecystectomy History of total right knee replacement History of esophagogastroduodenoscopy (EGD) History of carpal tunnel release of both wrists Family History Father Stroke CVD (cardiovascular disease) Mother Gastritis Skin cancer Social History Household Members: Spouse Housing: House Are you a primary professional healthcare representative to a significant other at home: No Do you presently have visiting nurse or other home services: No 75 years or older and lives alone: No Alcohol intake: never Patient Tobacco Use Status: Never used Tobacco e-Cigarette/Vaping Use: Never Used service: No Current occupational status: disabled Physical Exam Vital Signs: Last Vital Signs Pulse 101 H 05/09/25 08:20 BP 170/122 H 05/09/25 08:20 Pulse Ox 96 05/09/25 08:20 Oxygen Delivery Method Room Air 05/09/25 08:20 BMI result Body Mass Index 30.3 Const Other: General: Comfortable Skin: No lesions seen Assessment & Plan Assessment & Plan (1) Hypertensive urgency: Comment: On hydrochlorothiazide 12.5 mg daily. She took her medication this morning. She feels dizzy woozy Code(s): I16.0 - Hypertensive urgency Category: Medical Plan: I recommend that she see urgent care immediately on-site for further management (2) Greater trochanteric bursitis of both hips: Comment: Recurrent. She initial benefit with PT. Code(s): M70.61 - Trochanteric bursitis, right hip; M70.62 - Trochanteric bursitis, left hip Category: Medical Plan: Return to clinic May 29 for bilateral trochanteric bursa cortisone injections Coding Level of Care Code Est Pt Level 3 (33322) Complex EM visit Add On G2211 Diagnoses Hypertensive urgency I16.0 Greater trochanteric bursitis of both hips M70.61; M70.62
--- OUTSIDE RECORDS SUMMARY | 2025-05-09 08:26 | XMS_ITS | Encounter Summary ---
Author Organization [employer] Address [address] [facility] 7 [place] [address] Care Team Providers Care Ride Operator Name Role Phone Unavailable Primary Care Provider Unavailabl e Reason for Visit * Reason Onset Date Comments referral for Oral Surgery 09/14/2024 Encounter Details Date Type Department Care Team (Late st Contact Info) Description 09/14/2024 Telephone [facility] [address] [place] [address] Mert Giang [address] [place] [address] referral for Oral Surgery Social History Tobacco [...] is stating that she went to the medical front desk coordinator and informed no documentation had been sent concerning patient request for referral. However documentation was sent to provider as opposed to medical front desk coordinator seeing that providers provide referrals. Also sending to Jose the event she was calling patient concerning cancelled Oral Surgery appt for September. Patient called in seeking referral to go to an oral surgeon for a lesion on her tongue. Patient active requested since 03/2024 and was able to get in elsewhere sooner. Provider will prepare referral and patient will come to crab picker after having received call from medical front desk coordinator that referral is ready. Patient questioned how soon it would be ready. I was explained to patient that I did not have an official timeframe, however office will reach out to her and she can crab picker once it is ready. Patient is [...] prepare referral and patient will come to crab picker after having received call from medical front desk coordinator that referral is ready. Patient questioned how soon it would be ready. I was explained to patient that I did not have an official timeframe, however office will reach out to her and she can crab picker once it is ready. Patient is [...]
--- OUTSIDE RECORDS SUMMARY | 2025-05-09 08:26 | XMS_ITS | Clinical Summary ---
Author Organization [employer] Address [address] [facility] 7t [place] [address] Care Team Providers Care Cyberathlete Name Role Phone Unavailable Primary Care Provider [...] TABLET FOUR TIMES DAILY Active nystatin (Mycostatin) 577406 UNIT/ML suspension Take 4 mL by mouth [...] (2 of 2 - PCV) 10/26/2018 10/26/2017 RSV Patients and Patients Aged 60 years or older (1 - Risk 50-74 years 1-dose series) 2019 Dental Oral Exam 12/17/2022 06/17/2022 Dental Prophylaxis 10/13/2024 04/13/2024, 06/17/2022 COVID-19 Vaccine ( season) 2025 03/22/2023, 05/09/2022, 09/29/2021, Additional history exists Influenza Vaccine (#1) 2025 , 03/20/2023, 03/02/2022, Additional history exists Dental X-Ray: Bitewings 04/14/2025 04/13/2024, 06/17 Tobacco Screening 04/20/2025 04/20/2024 DTaP/Tdap/Td Vaccines (3 - Td or Tdap) 05/25/2025 05/25/2015, 01/28/2010 Mammogram 11/20/2026 11/20/2024, 11/20/2024 Dental X-Ray: Full Mouth 04/14/2027 04/13/2024 Hepatitis B Vaccines Completed 11/07/2013, 06/13/2013, 05/09/2013 [...] Most Recently Relevant to Health Maintenance Insurance [facility]
--- OUTSIDE RECORDS SUMMARY | 2025-05-09 08:27 | XMS_ITS | Encounter Summary ---
Author Organization [facility] Address [address] [place] [address] Care Team Providers Care Coring Machine Operator Name Role Phone Tanja Larkin MD Primary Care Provider [phone] Encounter Details Date Type Department Care Team (Late st Contact Info) Description 02/26/2025 Lab Requisition [facility] - Main Lab [address] [facility] [place] [phone] Yenni Sandoval MD 299 [facility] [address] [place] [phone] Urinary tract infection, site not specified; Acute vaginitis Social History Tobacco Use Types Packs/Day Years [...] your loved ones. For example, child care worker or elderly care for an older adult? [...] Date Recorded What is your living situation? Unrecognized valu e 06/11/2024 Interpersonal Safety Answer Date Record ed Physical Abuse Unrecognized value 07/24/2024 Verbal Abuse Unrecognized value 07/24/2024 Comments No Sex and Gender Information [...] Care Team (Late st Contact Info) Description 06/10/2025 9:00 AM EST Office Visit Pulmonology - [place] [address] [facility] [address] [place] [phone] Abhay Coppola MD [address] [place] [phone] 06/18/2025 8:40 AM EST Office Visit [facility] - [facility] [address] [facility] [address] [place] [phone] Marycarmen Georges NP [address] [place] [address] Dr [address] [place] [address] 07/31/2025 8:50 AM EST Office Visit Gastroenterology - 299 [facility] 299 [facility] [address] [place] [phone] Daphnie Almanza PA 299 [facility] [address] [place] [address] 09/03/2025 9:45 AM EDT Office Visit Internal Medicine - [address] [place] [address] Tanja Larkin MD [address] [place] [phone] documented as of this encounter Procedures Procedure Name Priority Date/Time Associated Diagnosis Comments URINALYSIS WITH REFLEX MICROSCOPIC Routine 02/26/2025 12:00 AM EDT Urinary tract infection, site not specified Acute vaginitis URINALYSIS WITH REFLEX MICROSCOPIC Routine 02/26/2025 12:00 AM EDT Urinary tract infection, site not specified Acute vaginitis VAGINITIS PATHOGENS BY PCR Routine 02/26/2025 12:00 AM EDT Urinary tract infection, site not specified Acute vaginitis CULTURE URINE Routine 02/26/2025 12:00 AM EDT Urinary tract infection, site not specified Acute vaginitis documented in this encounter Results * (ABNORMAL) Urinalysis with reflex microscopic (02/26/2025 12:00 AM EDT) Specific [place] Urine 1.022 1.003 - 1.030 LAB URINALYSIS - AUTOMATED METHOD 02/26/2025 6:27 PM [facility] pH, Urine 6.0 5.0 - 8.0 pH LAB URINALYSIS - AUTOMATED METHOD 02/26/2025 6:27 PM [facility] Leukocytes, Urine Trace(A) Negative LAB URINALYSIS - AUTOMATED METHOD 02/26/2025 6:27 PM [facility] Nitrite, Urine Negative Negative LAB URINALYSIS - AUTOMATED METHOD 02/26/2025 6:27 PM [facility] Protein, Urine Negative <=Trace mg/dL LAB URINALYSIS - AUTOMATED METHOD 02/26/2025 6:27 PM [facility] Glucose, Urine Negative Negative mg/dL LAB URINALYSIS - AUTOMATED METHOD 02/26/2025 6:27 PM [facility] Ketones, Urine Trace(A) Negative mg/dL LAB URINALYSIS - AUTOMATED METHOD 02/26/2025 6:27 PM [facility] Urobilinogen, Urine 0.2 0.2 - 1.0 mg/dL LAB URINALYSIS - AUTOMATED METHOD 02/26/2025 6:27 PM [facility] Bilirubin, Urine Negative Negative LAB URINALYSIS - AUTOMATED METHOD 02/26/2025 6:27 PM [facility] Blood, Urine Negative Negative LAB URINALYSIS - AUTOMATED METHOD 02/26/2025 6:27 PM [facility] RBC, Urine 3.8 0 - 4 /HPF LAB URINALYSIS - AUTOMATED METHOD 02/26/2025 6:27 PM [facility] WBC, Urine 3.3 0 - 4 /HPF LAB URINALYSIS - AUTOMATED METHOD 02/26/2025 6:27 PM [facility] Squamous Epithelial, Urine 43 0 - 60 /LPF LAB URINALYSIS - AUTOMATED METHOD 02/26/2025 6:27 PM [facility] Bacteria, Urine Negative Negative /HPF LAB URINALYSIS - AUTOMATED METHOD 02/26/2025 6:27 PM [facility] Hyaline Casts, Urine 2.0 0 - 3 /LPF LAB URINALYSIS - AUTOMATED METHOD 02/26/2025 6:27 PM [facility] Urine Urine specimen obtained by clean catch procedure / Unknown 02/26/2025 02/26/2025 6:09 PM EDT us Yenni Sandoval MD LAB URINE ORDERABLES Fin al Result [facility] [address] [place] [address], [place] [phone] * Vaginitis pathogens molecular study (02/26/2025 12:00 AM EDT) Trichomonas vaginalis Negative Negative 02/27/2025 10:31 AM EDT [facility] Gardnerella vaginalis Negative Negative 02/27/2025 10:31 AM EDT [facility] Ann Species Negative Negative 10:31 AM EDT [facility] Swab Vaginal structure / Unknown 02/26/2025 02/26/2025 6:09 PM EDT us Yenni Sandoval MD LAB MICROBIOLOGY - GENER AL ORDERABLES Final Result Performing Organization Address City/[facility]/ZIP Co de Phone Number [facility] [address] [place] [address], * Culture urine (02/26/2025 12:00 AM EDT) Culture, Urine <10,000 cfu/mL Mixed bacterial miguel 02/27/2025 1:26 PM EDT [facility] Urine Urine specimen obtained by clean catch procedure / Unknown 02/26/2025 02/26/2025 6:09 PM EDT us Yenni Sandoval MD LAB MICROBIOLOGY - GENER AL ORDERABLES Final Result [facility] [address] [place] [address], [place] [phone] documented in this encounter Visit Diagnoses Diagnosis Urinary tract infection, site not specified Acute vaginitis Unspecified vaginitis and vulvovaginitis documented in this encounter Additional Health Concerns Assessment Noted Time PHQ-9 Depression Total Score: 19 03/2 025 3:44 PM EST documented as of this encounter Care Teams Coring Machine Operator Relationship Specialty Start Date End Date Tanja Larkin MD [address] [phone] PCP - General Internal Medicine 05/04/24 documented as of this encounter
--- OUTSIDE RECORDS SUMMARY | 2025-05-09 08:27 | XMS_ITS | Encounter Summary ---
Author Organization [employer] Address [address] [facility] 7t [place] [address] Care Team Providers Care Archivist Military History Name Role Phone Sudarshan Hdz MD Primary [...] on filedocumented in this encounter Care Teams Archivist Military History Relationship Specialty Start Date End Date Sudarshan Hdz MD [address] [place] [phone] PCP - General Internal Medicine 11/27/19 06/30/23 documented as of this encounter
--- OUTSIDE RECORDS SUMMARY | 2025-05-09 08:27 | XMS_ITS | Clinical Summary ---
Author Organization [facility] Address [address] [place] [phone] Phone Care Team Providers Care Camp Housekeeper Name Role Phone Tanja Larkin MD Primary Care Provider [phone] Allergies Active Allergy Reactions Criticality Noted Date [...] each day. Biotin 5000 MCG Tab Active CHOLECALCIFEROL, VITAMIN D3, ORAL Take 1 tablet [...] TABLET TWICE DAILY NEEDED FOR ANXIETY Active lactobacillus combination no.4 (Probiotic) 3 billion cell capsule Take by mouth 2 (two) times a day. Active cyanocobalamin (VITAMIN B-12) 1,000 mcg tablet Take 3 tablets (3,000 mcg total) by mouth 2 (two) times a day. Active multivit-min/ferrou s fumarate (MULTI VITAMIN ORAL) 0 Refills, Maintenance, [...] the next 30 min. 12 each 3 Active Additional Information Patient not taking.Reported on 04/05/2025 calcium carbonate-vitamin D3 600 mg-10 mcg (400 unit) capsule Take 1 capsule by mouth 2 (two) times a day. 180 each 2 Active atorvastatin (LIPITOR) 20 mg tablet Take 1 tablet (20 mg total) by mouth 1 (one) time each day. 90 tablet 3 Active Additional Information Patient not taking.Reported on 04/05/2025 magnesium oxide 400 mg magnesium capsule Take 1 capsule by mouth at bedtime. 90 capsule 3 Active tirzepatide, weight loss, (ZEPBOUND) 5 mg/0.5 mL injectionIndication s:Obesity (BMI 30.0-34.9) Inject 0.5 mL (5 mg total) under the skin every 7 (seven) days. 2 mL 3 Active Additional Information Patient not taking.Reason: Patient hasnt started, Reported on 04/05/2025 dilTIAZem CD (CARDIZEM CD) 120 mg 24 hr capsule Take 1 capsule (120 mg total) by mouth 1 (one) time each day. 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 10.7 each 11 Active Ventolin HFA 90 mcg/actuation inhaler INHALE TWO PUFFS EVERY 4 HOURS NEEDED FOR COUGH OR FOR WHEEZING 18 g 2 Active tirzepatide, weight loss, (ZEPBOUND) 2.5 mg/0.5 mL injectionIndication s:Mixed hyperlipidemia,Prim amos hypertension,Obesit y (BMI 30.0-34.9),Fibromya lgia,Mild persistent asthma without complication,RAMOS on CPAP Inject 0.5 mL (2.5 mg total) under the skin every 7 (seven) days. 2 mL 3 Active cholecalciferol (VITAMIN D-3) 50 mcg (2,000 unit) tablet TAKE ONE TABLET DAILY 90 tablet 3 Active amoxicillin (AMOXIL) 500 mg tabletIndications:H . pylori gastrointestinal tract infection Take 2 tablets (1,000 mg total) by mouth 2 (two) times a day for 14 days. 56 tablet 025 2024 clarithromycin (BIAXIN) 500 mg tabletIndications:H . pylori gastrointestinal tract infection Take 1 tablet (500 mg total) by mouth 2 (two) times a day for 14 days. 28 each 025 2024 Active Problems Problem Noted Date Diagnosed Date [...] RAMOS (obstructive sleep apnea) 10/13/2017 Overview (03/28/2024): [facility] Home Sleep Apnea Test: Date 11/22/2018; [...] Encounters Date Type Department Care Team Description 05/01/2025 Telephone Pulmonology [facility] [address] [phone] Abhay Coppola MD 04/18/2025 Results Follow-Up Gastroenterology [address] [phone] Danica Park MD 04/15/2025 Telephone Internal Medicine [facility] [address] [phone] Tanja Larkin MD 04/05/2025 10:00 AM EDT Office Visit Internal Medicine [facility] [address] [phone] Tanja Larkin MD Gastroesophageal reflux disease without esophagitis (Primary Dx); Mixed hyperlipidemia; Primary hypertension; Obesity (BMI 30.0-34.9); Fibromyalgia; Mild persistent asthma without complication; RAMOS on CPAP 04/05/2025 Telephone Internal Medicine [facility] [address] [phone] Tanja Larkin MD 04/03/2025 Telephone [facility] Cardiology [facility] [address] [facility] [address] [place] [address] Lázaro Mcguire MD 04/01/2025 Telephone [facility] Cardiology [facility] [address] [facility] [address] [place] [address] Lázaro Mcguire MD 03/29/2025 10:58 AM EDT - 03/29/2025 1:37 PM EDT Emergency [facility] Emergency [address] [place] [address] Chas Rodriguez MD Nonintractable headache, unspecified chronicity pattern, unspecified headache type (Primary Dx); Secondary hypertension Discharge Disposition: Home or Self Care 03/29/2025 Telephone Internal Medicine - [place] [address] [phone] Tanja Larkin MD 03/29/2025 Telephone Internal Medicine [facility] [address] [phone] Tanja Larkin MD 03/29/2025 Telephone Internal Medicine [facility] [address] [phone] Tanja Larkin MD 03/28/2025 3:52 PM EDT - 03/28/2025 4:59 PM EDT Emergency [facility] Emergency [address] [place] [phone] Sraah Sage MD Acute pain of right shoulder (Primary Dx) Discharge Disposition: Home or Self Care 03/07/2025 9:54 AM EDT Anesthesia Event [facility] Endoscopy [address] [place] [phone] Carlitos Joseph MD 03/07/2025 8:54 AM EDT - 03/07/2025 11:59 PM EDT Hospital Encounter [facility]oscopy [address] [place] [address] Danica Park MD Steele, Matthew G, CRNA Gastroesophageal reflux disease without esophagitis; Pharyngeal dysphagia Discharge Disposition: Home or Self Care 03/04/2025 9:10 AM EDT Office Visit Gastroenterology [facility] [address] [phone] Daphnie Almanza PA Gastroesophageal reflux disease without esophagitis (Primary Dx); Esophageal stenosis; Chronic constipation 03/04/2025 Telephone Gastroenterology [facility] [address] [phone] Daphnie Almanza PA 02/26/2025 Lab Requisition [facility] - Main Lab [address] [facility] [place] [address] Yenni Sandoval MD Urinary tract infection, site not specified; Acute vaginitis 02/11/2025 9:30 AM EDT Office Visit Pulmonology - [place] 175 [facility] [address] [place] [address] Abhay Coppola MD Mild persistent asthma with acute exacerbation (Primary Dx) from Last 3 Months Immunizations Immunization Administration Dates Next Due Hepatitis B (Unlmhoh-I-Czwxm , Recombivax HB-Adult) 19yo and older 11/07/2013,06/13/2013,05/09/2013 [...] from spine a few mths VAGINOSCOPY PROCEDURE: NV COLPOSCOPY CERVIX VAG LOOP ELTRD BX CERVIX; COMMENT: hx of abnormal pap smear EYE SURGERY PROCEDURE: NV TRABECULOPLASTY BY LASER SURGERY; COMMENT: SENG - b/l ESOPHAGOGASTRODUODENOSCOPY 06/16/2012 PROCEDURE: NV ESOPHAGOGASTRODUODENOSCOPY TRANSORAL DIAGNOSTIC; COMMENT: normal ESOPHAGOGASTRODUODENOSCOPY 09/2018 PROCEDURE: NV ESOPHAGOGASTRODUODENOSCOPY TRANSORAL DIAGNOSTIC KNEE SURGERY 08/2020 Right PROCEDURE: HISTORICAL KNEE SURGERY; COMMENT: arthroscopic CHOLECYSTECTOMY PROCEDURE: NV LAPAROSCOPY SURG CHOLECYSTECTOMY COLONOSCOPY Medical History Medical History Date Comments Seasonal allergies DX:Seasonal a llergies Lumbago DX:Lumbago Cervicalgia DX:Cervicalgia Esophageal reflux DX:Esophageal reflux Sciatica DX:Sciatica Solitary pulmonary nodule 06/15/2013 DX:Merari itary pulmonary nodule RAMOS (obstructive sleep apnea) 10/13/2017 DX :RAMOS (obstructive sleep apnea); COMMENT: [facility] Home Sleep Apnea Test: Date 11/22/2018; [...] (continuous positive ai rway pressure) dependence Hyperlipidemia Migraine Family History Medical History Relation Name Comments [...] for your loved ones. For example, child welfare assistant or elderly care for an older [...] Date Record ed Physical Abuse Unrecognized value 03/07/2025 Verbal Abuse Unrecognized value 03/07/2025 Comments No Sex and Gender Information Value [...] Sign Reading Time Taken Comments Blood Pressure 128/86 04/05/2025 10:07 AM EDT Pulse 93 04/05/2025 10:07 AM EDT Temperature 36.2 C (97.2 F) 04/05/2025 10:07 AM EDT Respiratory Rate 18 04/05/2025 10:07 AM EDT Oxygen Saturation 97% 04/05/2025 10:07 AM EDT Inhaled Oxygen Concentration - - Weight 69.9 kg (154 lb) 04/05/2025 10:07 AM EDT Height 149.9 cm (4' 11 ) 04/05/2025 10:07 AM EDT Body Mass Index 31.1 04/05/2025 10:07 AM EDT Plan of Treatment Upcoming Encounters Date Type Department Care Team (Late st Contact Info) Description 06/10/2025 9:00 AM EST Office Visit Pulmonology - [place] 175 [facility] [address] [place] [phone] Abhay Coppola MD [address] [place] [address] 06/18/2025 8:40 AM EST Office Visit [facility] [address] [facility] [address] [place] [phone] Marycarmen Georges NP [address] [place] [address] [place] [phone] 07/31/2025 8:50 AM EST Office Visit Gastroenterology - [address] [facility] [address] [place] [phone] Daphnie Almanza PA [address] [facility] [address] [place] [address] 09/03/2025 9:45 AM EDT Office Visit Internal Medicine - [place] 175 [facility] [address] [place] [phone] Tanja Larkin MD [address] [place] [phone] Health Maintenance Due Date Last Done Comments Pneumococcal Vaccine: 50+ Years (2 of 2 - PCV) 10/26/2018 10/26/2017 RSV Immunization Adult Patients (1 - Risk 50-74 years 1-dose series) 2019 HIV Screening 06/05/2022 Medicare Annual Wellness Visit 06/05/2022 COVID-19 Vaccine ( season) 2025 03/22/2023, 05/09/2022, 10/08/2021, Additional history exists DTaP,Tdap,and Td Vaccines (3 - Td or Tdap) 05/30/2025 05/30/2015, 01/28/2010 Social Influencers of Health Screening 06/11/2025 06/11/2024 Hypertension/CHF/CAD Annual BMP Blood Test 03/12/2026 03/12/2025, 11/01/2024, 08/21/2024, Additional history exists Breast Cancer Screening 11/20/2026 11/21/19, 11/18/2023, 11/15/2022, Additional history exists Cervical Cancer Screening: HPV 10/26/2029 10/26/2024 Cholesterol Screening (Lipid Panel) 03/12/2030 03/12/2025, 06/18/2024, 03/01/2024, Additional history exists Colorectal Cancer Screening: Colonoscopy 07/24/2034 07/24/2024, 05/29/2019 Osteoporosis Screening (Bone Density Screening) 11/08/2034 11/08/2024 Hepatitis B Vaccines Completed 11/07/2013, 06/13/2013, 05/09/2013 Hepatitis C Screening Completed 05/17/2022 Zoster Vaccines Completed 05/20/2023, 03/20/2023 Depression Screening Completed 08/29/2024 Influenza Vaccine Completed 02/21/2025, , 03/20/2023, Additional history exists HIB Vaccines Aged Out [...] on patient's age to complete this topic Medical Devices Implanted Type Area [employer] Device Identifier Shelf Expiration Date Model / Serial / Lot Joints Knee Joints Knee Right: Knee Procedures Procedure Name Priority Date/Time Associated Diagnosis Comments ECG ANNOTATED 03/30/2025 XR CHEST 2 VIEWS STAT 03/29/2025 11:0 6 AM EDT CBC WITH AUTO DIFFERENTIAL STAT 03/29/2025 10:49 AM EDT TROPONIN I HIGH SENSITIVITY STAT 03/29/2025 10:49 AM EDT CBC AND DIFFERENTIAL STAT 03/29/2025 10:49 AM EDT B-TYPE NATRIURETIC PEPTIDE STAT 03/29/2025 10:49 AM EDT MAGNESIUM STAT 03/29/2025 10:49 AM EDT LIPASE STAT 03/29/2025 10:49 AM EDT ECG 12-LEAD STAT 03/29/2025 10:46 AM EDT XR SHOULDER 2+ VIEWS RIGHT STAT 03/28/2025 4:41 PM EDT CBC WITH AUTO DIFFERENTIAL Routine 03/12/2025 9:41 AM EDT Screening for diabetes mellitus Routine general medical examination at a health care facility Screening for thyroid disorder Screening for lipoid disorders LIPID PANEL WITH REFLEX TO DIRECT LDL Routine 03/12/2025 9:41 AM EDT Screening for diabetes mellitus Routine general medical examination at a [facility] care facility Screening for thyroid disorder Screening for lipoid disorders THYROID STIMULATING HORMONE WITH REFLEX TO FREE T4 AND FREE T3 Routine 03/12/2025 9:41 AM EDT Screening for diabetes mellitus Routine general medical examination at a [facility] care facility Screening for thyroid disorder Screening for lipoid disorders CBC AND DIFFERENTIAL Routine 03/12/2025 9:41 AM EDT Screening for diabetes mellitus Routine general medical examination at a health care facility Screening for thyroid disorder Screening for lipoid disorders COMPREHENSIVE METABOLIC PANEL Routine 03/12/2025 9:41 AM EDT Screening for diabetes mellitus Routine general medical examination at a health care facility Screening for thyroid disorder Screening for lipoid disorders HEMOGLOBIN A1C Routine 03/12/2025 9:41 AM EDT Screening for diabetes mellitus Routine general medical examination at a health care facility Screening for thyroid disorder Screening for lipoid disorders EGD Routine 03/07/2025 10:14 AM EDT Gastroesophageal reflux disease without esophagitis Pharyngeal dysphagia TISSUE EXAM Routine 03/07/2025 10:04 AM EDT Gastroesophageal reflux disease without esophagitis Pharyngeal dysphagia URINALYSIS WITH REFLEX MICROSCOPIC Routine 02/26/2025 12:00 [...] tract infection, site not specified Acute vaginitis ECHO 02/06/2025 MG MAMMO DIGITAL SCREENING W TINO BILAT Routine 11/20/2024 11:17 AM EDT Encounter for screening mammogram for breast cancer BD BONE DENSITY DXA AXIAL SKELETON Routine 11/08/2024 9:19 AM EDT Postmenopausal state HPV WITH REFLEX GENOTYPE Routine 10/26/2024 12:00 AM EDT Encounter for gynecological examination (general) (routine) without abnormal findings COLONOSCOPY Routine 07/24/2024 8:04 AM EST Hx of colonic polyps HM HEPATITIS C SCREENING Routine 05/17/2022 from Last 3 Months or Most Recently Relevant to Health Maintenance Results * ECG-Annotated (03/30/2025) us Provider Onbase ECG ORDERABLES Final Result * XR Chest 2 Views (03/29/2025 11:06 AM EDT) Anatomical Region Laterality Modality Body Radiographic Shelbie ging 03/29/2025 11:1 6 AM EDT Impressions 03/29/2025 11:19 AM EDT No acute pulmonary disease. Linear scarring in the lingula, as also seen on 08/21/2024. Code 25511 -------- FINAL REPORT -------- Dictated By: Joseph Chaudhary Dictated Date: 03/29/2025 11:16 ET Assigned Physician: Joseph Chaudhary Reviewed and Electronically Signed By: Joseph Chaudhary Signed Date: 03/29/2025 11:19 ET Workstation ID: [id number] Transcribed By: Self Edit Transcribed Date: 03/29/2025 11:16 ET Narrative 03/29/2025 11:19 AM EDT HISTORY: The patient is a 55 show female with chest pain for several days. FINDINGS: PA and lateral radiographs of the chest demonstrate improved depth inspiration as compared to the prior study performed 08/21/2024. Again seen are mild dextroscoliosis and minimal degenerative change of the thoracic spine. The cardiac and mediastinal contours are within normal limits. Linear scarring is present in the lingula, also present on the prior examination. The lungs are otherwise clear and the costophrenic angles are sharp. Mild discoid atelectasis at the left lung base has resolved since the prior study. Cholecystectomy clips are again noted. Procedure Note Joseph Chaudhary MD - 03/29/2025 HISTORY: The patient is a 55 show female with chest pain for severaldays. FINDINGS: PA and lateral radiographs of the chest demonstrate improveddepth inspiration as compared to the prior study performed 08/21/2024.Again seen are mild dextroscoliosis and minimal degenerative change of thethoracic spine. The cardiac and mediastinal contours are within normallimits. Linear scarring is present in the lingula, also present on theprior examination. The lungs are otherwise clear and the costophrenicangles are sharp. Mild discoid atelectasis at the left lung base hasresolved since the prior study. Cholecystectomy clips are again noted. IMPRESSION: No acute pulmonary disease. Linear scarring in the lingula, as also seenon 08/21/2024. Code 73692 -------- FINAL REPORT -------- Dictated By: Joseph Chaudhary Dictated Date: 03/29/2025 11:16 ET Assigned Physician: Joseph Chaudhary Reviewed and Electronically Signed By: Joseph Chaudhary Signed Date: 03/29/2025 11:19 ET Workstation ID: [id number] Transcribed By: Self Edit Transcribed Date: 03/29/2025 11:16 ET us Mica Roman MD IMG XR PROCEDURES Final Res ult * Troponin I high sensitivity (03/29/2025 10:49 AM EDT) [facility] High Sensitivity Troponin I <3 <=54 ng/L LAB CHEMISTRY METHOD 03/29/2025 11:32 AM T [facility] Blood Venous blood specimen / Unknown Venipuncture / Unknown 03/29/2025 10:49 AM EDT 03/29/2025 10:55 AM EDT Narrative [facility] - 03/29/2025 11:32 AM EDT High levels of biotin in samples may falsely decrease hsTroponin values. Use caution when interpreting hsTroponin results in patients taking biotin who exhibit renal impairment (eGFR <60) or in patients taking more than 20 mg/day of biotin. us Mica Roman MD LAB BLOOD ORDERABLES Final Result [facility] [address] [place] [address], [place] [phone] * (ABNORMAL) CBC auto differential (03/29/2025 10:49 AM EDT) Only the most recent of2 resultswithin the time period is included. [facility] WBC 9.2 4.8 - 10.8 K/mcL LAB HEMETOLOGY METHOD 03/29/2025 11:02 AM [facility] RBC 4.50 3.80 - 4.80 M/mcL LAB H[facility]OLOG[facility] Hemoglobin 12.7 11.5 - 16.0 g/dL LAB HEMETOLOGY METHOD 03/29/2025 11:02 AM [facility] Hematocrit 40.4 35.0 - 47.0 % LAB HEMETOLOGY METHOD 03/29/2025 11:02 AM [facility] MCV 89.2 79.0 - 98.0 FL LAB HEMETOLOGY METHOD 03/29/2025 11:02 AM [facility] MCH 28.0 27.0 - 32.0 pcg LAB HEMETOLOGY METHOD 03/29/2025 11:02 AM [facility] MCHC 31.4(L) 32.0 - 37.0 g/dL LAB HEMETOLOGY METHOD 03/29/2025 11:02 AM [facility] RDW 14.5 11.0 - 15.0 % LAB HEMETOLOGY METHOD 03/29/2025 11:02 AM [facility] Platelets 416(H) 130 - 400 K/mcL LAB HEMETOLOGY METHOD 03/29/2025 11:02 AM [facility] MPV 9.1 7.0 - 11.0 FL LAB HEMETOLOGY METHOD 03/29/2025 11:02 AM [facility] NRBC 0.0 <1.0 % LAB HEMETOLOGY METHOD 03/29/2025 11:02 AM [facility] NRBC Absolute 0.00 <0.10 K/mcL LAB HEMETOLOGY METHOD 03/29/2025 11:02 AM [facility] Neutrophils Relative 68.5 % LAB HEMETOLOGY METHOD 03/29/2025 11:02 AM [facility] Lymphocytes Relative 18.3 % LAB HEMETOLOGY METHOD 03/29/2025 11:02 AM [facility] Monocytes Relative 11.4 % LAB HEMETOLOGY METHOD 03/29/2025 11:02 AM [facility] Eosinophils Relative 1.0 % LAB HEMETOLOGY METHOD 03/29/2025 11:02 AM [facility] Basophils Relative 0.5 % LAB HEMETOLOGY METHOD 03/29/2025 11:02 AM [facility] Immature Granulocytes Relative 0.3 % LAB HEMETOLOGY METHOD 03/29/2025 11:02 AM [facility] Neutrophils Absolute 6.33 1.50 - 7.00 K/mcL LAB HEMETOLOGY METHOD 03/29/2025 11:02 AM EDT [facility] Lymphocytes Absolute 1.69 1.00 - 5.00 K/mcL LAB HEMETOLOGY METHOD 03/29/2025 11:02 AM EDT [facility] Monocytes Absolute 1.05(H) 0.20 - 1.00 K/mcL LAB HEMETOLOGY METHOD 03/29/2025 11:02 AM EDT [facility] Eosinophils Absolute 0.09 0.00 - 0.50 K/mcL LAB HEMETOLOGY METHOD 03/29/2025 11:02 AM EDT [facility] Basophils Absolute 0.05 0.00 - 0.20 K/mcL LAB HEMETOLOGY METHOD 03/29/2025 11:02 AM EDT [facility] Immature Granulocytes Absolute 0.03 0.00 - 0.03 K/mcL LAB HEMETOLOGY METHOD 03/29/2025 11:02 AM EDT [facility] Blood Venous blood specimen / Unknown Venipuncture / Unknown 03/29/2025 10:49 AM EDT 03/29/2025 10:55 AM EDT Mica Roman MD LAB BLOOD ORDERABLES Final Result [facility] [address] [place] [address], * B-type natriuretic peptide (03/29/2025 10:49 AM EDT) BNP 12 <=100 pcg/mL LAB CHEMISTRY METHOD 03/29/2025 11:58 AM EDT [facility] Blood Venous blood specimen / Unknown Venipuncture / Unknown 03/29/2025 10:49 AM EDT 03/29/2025 10:55 AM EDT Mica Roman MD LAB BLOOD ORDERABLES Final Result Performing Organization Address [facility]/ZIP Co de Phone Number [facility] [address] [place] [address], [place] [phone] * Magnesium (03/29/2025 10:49 AM EDT) Pathologist [facility] Magnesium 2.4 1.9 - 2.6 mg/dL LAB CHEMISTRY METHOD 03/29/2025 11:18 AM EDT [facility] Blood Venous blood specimen / Unknown Venipuncture / Unknown 03/29/2025 10:49 AM EDT 03/29/2025 10:55 AM EDT Mica Roman MD LAB BLOOD ORDERABLES Final Result Performing Organization Address [facility]/ZIP Co de Phone Number [facility] [address] [place] [address], [place] [phone] * Lipase (03/29/2025 10:49 AM EDT) [facility] Lipase 24 13 - 75 unit/L LAB CHEMISTRY METHOD 03/29/2025 11:18 AM EDT [facility] Blood Venous blood specimen / Unknown Venipuncture / Unknown 03/29/2025 10:49 AM EDT 03/29/2025 10:55 AM EDT Mica Roman MD LAB BLOOD ORDERABLES Final Result Performing Organization Address City/[facility]/ZIP Co de Phone Number [facility] [address] [place] [address], [place] [phone] * ECG 12 lead (03/29/2025 10:46 AM EDT) Ventricular Rate ECG 85 BPM GEMUSE Atrial Rate 85 BPM GEMUSE P-R Interval 158 ms GEMUSE QRS Duration 86 ms GEMUSE Q-T Interval 380 ms GEMUSE QTc 452 ms GEMUSE P Wave Sturgeon 32 degrees GEMUSE R Sturgeon -18 degrees GEMUSE T Sturgeon 9 degrees GEMUSE ECG Interpretation Normal sinus rhythm Normal ECG When compared with ECG of 21-AUG-2024 18:32, No significant change was found Confirmed by DIANDRA SANCHES ([id number]) on 03/30/2025 11:07:15 AM GEMUSE 03/29/2025 10:4 6 AM EDT 03/30/2025 11:07 AM EDT us Mica Roman MD ECG ORDERABLES Final Resul t GEMUSE * XR Shoulder 2+ Views Right (03/28/2025 4:41 PM EDT) Anatomical Region Laterality Modality Upper Extremities, Shoulder Right Radi ographic Imaging 03/28/2025 4:52 PM EDT Impressions 03/28/2025 5:08 PM EDT FINDINGS/IMPRESSION: No acute fracture. Normal alignment. -------- FINAL REPORT -------- Dictated By: Pio Rodriguez Dictated Date: 03/28/2025 16:52 ET Assigned Physician: Pio Rodriguez Reviewed and Electronically Signed By: Pio Rodriguez Signed Date: 03/28/2025 17:08 ET Workstation ID: [id number] Transcribed By: Self Edit Transcribed Date: 03/28/2025 16:55 ET Narrative 03/28/2025 5:08 PM EDT XR SHOULDER 2+ VIEWS RIGHT INDICATION: shoulder pain TECHNIQUE: XR SHOULDER 2+ VIEWS RIGHT COMPARISON: No priors available. Procedure Note Pio Rodriguez MD - 03/28/2025 XR SHOULDER 2+ VIEWS RIGHT INDICATION: shoulder pain TECHNIQUE: XR SHOULDER 2+ VIEWS RIGHT COMPARISON: No priors available. IMPRESSION: FINDINGS/IMPRESSION: No acute fracture. Normal alignment. -------- FINAL REPORT -------- Dictated By: Pio Rodriguez Dictated Date: 03/28/2025 16:52 ET Assigned Physician: Pio Rodriguez Reviewed and Electronically Signed By: Rodriguez, Manu Signed Date: 03/28/2025 17:08 ET Workstation ID: [id number] Transcribed By: Self Edit Transcribed Date: 03/28/2025 16:55 ET Sarah Sage MD IMG XR PROCEDURES Final Result * Thyroid stimulating hormone with reflex to free t4 and free t3 (03/12/2025 9:41 AM EDT) Pathologist [facility] TSH 1.41 0.40 - 4.00 mcIU/mL LAB CHEMISTRY METHOD 03/12/2025 2:32 PM EDT [facility] Blood Venous blood specimen / Unknown Venipuncture / Unknown 03/12/2025 9:41 AM EDT 03/12/2025 12:11 PM EDT Maddi FUNEZ LAB BLOOD ORDERABLES Final Resul t [facility] [address] [place] [address], * (ABNORMAL) Lipid panel with reflex to direct LDL (03/12/2025 9:41 AM EDT) Pathologist [facility] Cholesterol 267(H) 0 - 200 mg/dL LAB CHEMISTRY METHOD 03/12/2025 2:02 PM EDT [facility] Comment:Results verified by repeat testing Triglycerides 145 0 - 150 mg/dL LAB CHEMISTRY METHOD 03/12/2025 2:02 PM EDT [facility] HDL 75 >=40 mg/dL LAB CHEMISTRY METHOD 03/12/2025 2:02 PM EDT [facility] LDL Calculated 163(H) 0 - 100 mg/dL LAB CHEMISTRY METHOD 03/12/2025 2:02 PM EDT [facility] Comment:Estimated LDL Calcul ated using equation: Total cholesterol - HDL cholesterol - (Triglycerides/5) VLDL Cholesterol Oliverio 29 mg/dL LAB CHEMISTRY METHOD 03/12/2025 2:02 PM EDT [facility] Non HDL Chol. (LDL+VLDL) 192(H) <145 mg/dL LAB CHEMISTRY METHOD 03/12/2025 2:02 PM EDT [facility] Chol/HDL Ratio 3.6 0.0 - 4.4 LAB CHEMISTRY METHOD 03/12/2025 2:02 PM EDT [facility] Blood Venous blood specimen / Unknown Venipuncture / Unknown 03/12/2025 9:41 AM EDT 03/12/2025 12:11 PM EDT Maddi FUNEZ LAB BLOOD ORDERABLES Final Resul t Performing Organization Address City/[facility]/ZIP Co de Phone Number [facility] [address] [place] [address], [place] [phone] * Hemoglobin A1c (03/12/2025 9:41 AM EDT) Hemoglobin A1C 5.3 <6.5 % LAB CHEMISTRY METHOD 03/12/2025 2:26 PM EDT [facility] Mean Bld Glu Estim. 105 mg/dL LAB CHEMISTRY METHOD 03/12/2025 2:26 PM EDT [facility] Blood Venous blood specimen / Unknown Venipuncture / Unknown 03/12/2025 9:41 AM EDT 03/12/2025 12:14 PM EDT Maddi FUNEZ LAB BLOOD ORDERABLES Final Resul t [facility] [address] [place] [address], [place] [phone] * (ABNORMAL) Comprehensive metabolic panel (03/12/2025 9:41 AM EDT) Sodium 139 133 - 145 mmol/L LAB CHEMISTRY METHOD 03/12/2025 1:51 PM EDT [facility] Potassium 3.5 3.5 - 5.5 mmol/L LAB CHEMISTRY METHOD 03/12/2025 1:51 PM [facility] Chloride 106 96 - 110 mmol/L LAB CHEMISTRY METHOD 03/12/2025 1:51 PM [facility] CO2 26 21 - 32 mmol/L LAB CHEMISTRY METHOD 03/12/2025 1:51 PM [facility] Anion Gap 7 3 - 11 LAB CHEMISTRY METHOD 03/12/2025 1:51 PM [facility] Glucose 113(H) 70 - 100 mg/dL LAB CHEMISTRY METHOD 03/12/2025 1:51 PM [facility] BUN 19 5 - 25 mg/dL LAB CHEMISTRY METHOD 03/12/2025 1:51 PM [facility] Creatinine 0.69 0.50 - 1.10 mg/dL LAB CHEMISTRY METHOD 03/12/2025 1:51 PM [facility] eGFR 102 >=60 mL/min/1. 73m2 LAB CHEMISTRY METHOD 03/12/2025 1:51 PM [facility] Comment:Calculation based on the Chronic Kidney Disease Epidemiology Collaboration (CKD-EPI) equation refit without adjustment for race. BUN/Creatinine Ratio 27.5 LAB CHEMISTRY METHOD 03/12/2025 1:51 PM [facility] Calcium 8.9 8.5 - 10.5 mg/dL LAB CHEMISTRY METHOD 03/12/2025 1:51 PM [facility] AST (SGOT) 13 10 - 42 unit/L LAB CHEMISTRY METHOD 03/12/2025 1:51 PM [facility] ALT (SGPT) 24 10 - 60 unit/L LAB CHEMISTRY METHOD 03/12/2025 1:51 PM [facility] Alkaline Phosphatase 100 42 - 121 unit/L LAB CHEMISTRY METHOD 03/12/2025 1:51 PM [facility] Total Protein 6.7 6.0 - 8.0 g/dL LAB CHEMISTRY METHOD 03/12/2025 1:51 PM EDT [facility] Albumin 3.6 3.2 - 5.0 g/dL LAB CHEMISTRY METHOD 03/12/2025 1:51 PM EDT [facility] Total Bilirubin 0.3 0.0 - 1.4 mg/dL LAB CHEMISTRY METHOD 03/12/2025 1:51 PM EDT [facility] Blood Venous blood specimen / Unknown Venipuncture / Unknown 03/12/2025 9:41 AM EDT 03/12/2025 12:11 PM EDT Maddi FUNEZ LAB BLOOD ORDERABLES Final Resul t [facility] [address] [place] [address], * EGD Dilation; [facility] - [facility] (03/07/2025 10:14 AM EDT) Anatomical Region Laterality Modality Endoscopy 03/07/2025 9:59 AM EDT Impressions 03/07/2025 10:15 AM EDT - Normal examined duodenum. - Gastritis. Biopsied. - Small hiatal hernia. Recommendation: - Discharge patient to home. - Await pathology results. - Return to GI clinic PRN. Narrative 03/07/2025 10:15 AM EDT [facility] Patient Name: Kristy Li Procedure Date: 03/07/2025 9:59 AM Date of : 1970 Age: 55 Gender: Female Note Status: Finalized Attending MD: Danica Park MD, Procedure Date No Time: 03/07/2025 Procedure: Upper GI endoscopy Indications: Dysphagia Providers: Danica Park MD Referring MD: Danica Park MD Medicines: Monitored Anesthesia Care Complications: No immediate complications. Estimated blood loss: Minimal. Estimated Blood Loss: Estimated blood loss was minimal. Procedure: Pre-Anesthesia Assessment: - Prior to the [...] verified by the physician, the nurse, the workforce specialist and the master automotive technician in the pre-procedure area in the [...] patient was re-assessed after the procedure. After obtaining informed consent, the endoscope was passed under direct vision. Throughout the procedure, the patient's blood pressure, pulse, and oxygen saturations were monitored continuously. The Olympus Gastroscope was introduced through the mouth, and advanced to the second part of duodenum. The upper GI endoscopy was accomplished without difficulty. The patient tolerated the procedure well. Findings: The examined duodenum was normal. Segmental moderate inflammation characterized by congestion (edema) and erythema was found in the stomach. Biopsies were taken with a cold forceps for histology. Estimated blood loss was minimal. There is no endoscopic evidence of Barber's esophagus, bleeding, areas of erosion, esophagitis, inflammation, stenosis or stricture in the entire esophagus. A guidewire was placed and the scope was withdrawn. Dilation was performed with a Savary dilator with mild resistance at 60 Fr. A small hiatal hernia was present. Procedure Code(s): --- Professional --- 63922, Esophagogastroduodenoscopy, flexible, transoral; with insertion of guide wire followed by passage of dilator(s) through esophagus over guide wire [id number], 59, Esophagogastroduodenoscopy, flexible, transoral; with biopsy, single or multiple Diagnosis Code(s): --- Professional --- K29.70, Gastritis, unspecified, without bleeding K44.9, Diaphragmatic hernia without obstruction or gangrene R13.10, Dysphagia, unspecified CPT copyright 2020 [employer]. All rights reserved. The codes documented in this report are preliminary and upon tree deadener review may be revised to meet current compliance requirements. Danica Park MD 03/07/2025 10:15:15 AM This report has been signed electronically.Danica Park MD Number of Addenda: 0 Note Initiated On: 03/07/2025 9:59 AM Scope In: Scope Out: Endoscopy Department at [facility] - [address] [place] [phone] Procedure Note Danica Park MD - 03/07/2025 [facility] Patient Name: Kristy Li Procedure Date: 03/07/2025 9:59 AM Date of : 1970 Age: 55 Gender: Female Note Status: Finalized Attending MD: Danica Park MD, Procedure Date No Time: 03/07/2025 Procedure: Upper GI endoscopy Indications: Dysphagia Providers: Danica Park MD Referring MD: Danica Park MD Medicines: Monitored Anesthesia Care Complications: No immediate complications. Estimated blood loss: Minimal. Estimated Blood Loss: Estimated blood loss was minimal. Procedure: Pre-Anesthesia Assessment: - Prior to the procedure, a History and Physicalwas performed, and patient medications and allergieswere reviewed. The patient is competent. The risks and benefits of the procedure and the sedation optionsand risks were discussed with the patient. Allquestions were answered and informed consent was obtained. Patient identification and proposed procedure were verified by the physician, the nurse, theanesthetist and the master automotive technician in the pre-procedure area in the [...] patient was re-assessed after the procedure. After obtaining informed consent, the endoscope was passed under direct vision. Throughout theprocedure, the patient's blood pressure, pulse, and oxygen saturations were monitored continuously. TheOlympus Gastroscope was introduced through the mouth, and advanced to the second part of duodenum. The upperGI endoscopy was accomplished without difficulty. The patient tolerated the procedure well. Findings: The examined duodenum was normal. Segmental moderate inflammation characterized by congestion (edema) and erythema was found in the stomach. Biopsies were taken with a cold forcepsfor histology. Estimated blood loss was minimal. There is no endoscopic evidence of Barber's esophagus, bleeding, areas of erosion, esophagitis, inflammation, stenosis or stricture in the entire esophagus. A guidewire was placed and the scope was withdrawn. Dilation was performed with a Savary dilator with mild resistance at 60 Fr. A small hiatal hernia was present. Procedure Code(s): --- Professional --- 14950, Esophagogastroduodenoscopy, flexible, transoral; with insertion of guide wire followed by passage of dilator(s) through esophagus over guidewire 80407, 59, Esophagogastroduodenoscopy, flexible, transoral; with biopsy, single or multiple Diagnosis Code(s): --- Professional --- K29.70, Gastritis, unspecified, without bleeding K44.9, Diaphragmatic hernia without obstruction or gangrene R13.10, Dysphagia, unspecified CPT copyright 2020 [employer]. All rights reserved. The codes documented in this report are preliminary and upon tree deadener reviewmay be revised to meet current compliance requirements. Danica Park MD 03/07/2025 10:15:15 AM This report has been signed electronically.Danica Park MD Number of Addenda: 0 Note Initiated On: 03/07/2025 9:59 AM Scope In: Scope Out: Endoscopy Department at [facility] - [address] [place] [phone] IMPRESSION: - Normal examined duodenum. - Gastritis. Biopsied. - Small hiatal hernia. Recommendation: - Discharge patient to home. - Await pathology results. - Return to GI clinic PRN. Danica Park MD GI~PROCEDURE ORDERABLES Fin al Result * Tissue exam (03/07/2025 10:04 AM EDT) Addendum Immunohistochemistry : Helicobacter pylori: negative. 10:59 AM EDT [facility] Addendum electronically signed by Vi Soler MD on 03/11/2025 at 10:59 AM Final Diagnosis A. Stomach, gastric biopsy: - Gastric antral mucosa with focal acute inflammation. Note: Immunostain for Helicobacter pylori will be performed to rule out Helicobacter pylori infection in the setting of focal acute gastritis as Helicobacter pylori organisms are not morphologically apparent on H&E stained slide. 10:59 AM EDT [facility] Gross Description A. Stomach, gastric biopsy: Labeled stomach gastric . Received in formalin are three irregular preciado mucosal tissue fragments, each measuring approximately 0.4 cm in greatest dimension, which are wrapped in paper and submitted in toto in one cassette, three pieces, multiple levels on one slide. EUSEBIO 10:59 AM EDT [facility] Disclaimer NOTE: The immunohistochemical tests and in situ hybridization tests were developed and their performance characteristics were determined by [facility]. They have not been cleared or approved by the U.S. Food and Drug Administration. The FDA has determined that such clearance or approval is not necessary. These tests are used for clinical purposes. They should not be regarded as investigational or for research. This laboratory is certified under the Clinical Laboratory Improvement Amendments of 1988 (CLIA) as qualified to perform high complexity clinical laboratory testing. (controls appropriate) Unless otherwise specified, all tissue is 10% NB formalin fixed and paraffin embedded. 10:59 AM EDT [facility] Tissue Stomach structure / Unknown 03/07/2025 10:04 AM EDT 03/07/2025 12:15 PM EDT Danica Park MD LAB PATHOLOGY ORDERABLES Ed ited Result - Final [facility] [address] [place] [address], [place] [phone] * (ABNORMAL) Urinalysis with reflex microscopic (02/26/2025 12:00 AM EDT) Specific [place] Urine 1.022 1.003 - 1.030 LAB URINALYSIS - AUTOMATED METHOD 02/26/2025 6:27 PM [facility] pH, Urine 6.0 5.0 - 8.0 pH LAB URINALYSIS - AUTOMATED METHOD 02/26/2025 6:27 PM [facility] Leukocytes, Urine Trace(A) Negative LAB URINALYSIS - AUTOMATED METHOD 02/26/2025 6:27 PM [facility] Nitrite, Urine Negative Negative LAB URINALYSIS - AUTOMATED METHOD 02/26/2025 6:27 PM [facility] Protein, Urine Negative <=Trace mg/dL LAB URINALYSIS - AUTOMATED METHOD 02/26/2025 6:27 PM [facility] Glucose, Urine Negative Negative mg/dL LAB URINALYSIS - AUTOMATED METHOD 02/26/2025 6:27 PM [facility] Ketones, Urine Trace(A) Negative mg/dL LAB URINALYSIS - AUTOMATED METHOD 02/26/2025 6:27 PM [facility] Urobilinogen, Urine 0.2 0.2 - 1.0 mg/dL LAB URINALYSIS - AUTOMATED METHOD 02/26/2025 6:27 PM [facility] Bilirubin, Urine Negative Negative LAB URINALYSIS - AUTOMATED METHOD 02/26/2025 6:27 PM EDT [facility] Blood, Urine Negative Negative LAB URINALYSIS - AUTOMATED METHOD 02/26/2025 6:27 PM EDT [facility] RBC, Urine 3.8 0 - 4 /HPF LAB URINALYSIS - AUTOMATED METHOD 02/26/2025 6:27 PM EDT [facility] WBC, Urine 3.3 0 - 4 /HPF LAB URINALYSIS - AUTOMATED METHOD 02/26/2025 6:27 PM EDT [facility] Squamous Epithelial, Urine 43 0 - 60 /LPF LAB URINALYSIS - AUTOMATED METHOD 02/26/2025 6:27 PM EDT [facility] Bacteria, Urine Negative Negative /HPF LAB URINALYSIS - AUTOMATED METHOD 02/26/2025 6:27 PM [facility] Hyaline Casts, Urine 2.0 0 - 3 /LPF LAB URINALYSIS - AUTOMATED METHOD 02/26/2025 6:27 PM EDT [facility] Urine Urine specimen obtained by clean catch procedure / Unknown 02/26/2025 02/26/2025 6:09 PM EDT us Yenni Sandoval MD LAB URINE ORDERABLES Fin al Result [facility] [address] [place] [address], * Vaginitis pathogens molecular study (02/26/2025 12:00 AM EDT) Trichomonas vaginalis Negative Negative 02/27/2025 10:31 AM EDT [facility] Gardnerella vaginalis Negative Negative 02/27/2025 10:31 AM EDT [facility] Ann Species Negative Negative 10:31 AM EDT [facility] Swab Vaginal structure / Unknown 02/26/2025 02/26/2025 6:09 PM EDT Yenni Sandoval MD LAB MICROBIOLOGY - GENER AL ORDERABLES Final Result Performing Organization Address City/[facility]/ZIP Co de Phone Number [facility] [address] [place] [address], [place] [phone] * Culture urine (02/26/2025 12:00 AM EDT) Culture, Urine <10,000 cfu/mL Mixed bacterial miguel 02/27/2025 1:26 PM EDT [facility] Urine Urine specimen obtained by clean catch procedure / Unknown 02/26/2025 02/26/2025 6:09 PM EDT Yenni Sandoval MD LAB MICROBIOLOGY - GENER AL ORDERABLES Final Result Performing Organization Address [facility] Co de Phone Number [facility] [address] [place] [address], [place] [phone] * Echo (02/06/2025) Anatomical Region Laterality Modality Other Provider [employer] CV HISTORICAL CONV PROCE DURES Final Result * MG Mammo Digital Screening [...] for biopsy. PQRI CPT II 3342F Code 49980, 03030 PQRI 225 CPT II 7025F TISSUE DENSITY: There are scattered areas of fibroglandular density. (BI-RADS category B) IMPRESSION: Benign. BI-RADS CATEGORY: 2 - BENIGN RECOMMENDATION: Screening bilateral mammogram is recommended in 1 year. Mammo Location: [facility], [address] [place] [phone] -------- FINAL REPORT -------- Dictated By: Joseph Chaudhary Dictated Date: 11/20/2024 11:16 ET Assigned Physician: Joseph Chaudhary Reviewed and Electronically Signed By: Joseph Chaudhary Signed Date: 11/20/2024 11:19 ET Workstation ID: [id number] Transcribed By: Self Edit Transcribed Date: 11/20/2024 11:16 ET Narrative 11/20/2024 11:19 AM EDT CLINICAL: The patient is a 54 years Female presenting for routine screening mammography. COMPARISON: Most recently 11/18/2023 and most remotely 04/16/2017. TECHNIQUE: Full-field digital mammography of the breasts bilaterally consisting of tomosynthesis in MLO and CC projection is performed in the V[employer]odeclasse.comographe 2000-D unit. Computer aided detection utilizing the [...] MLO and CC projection is performed in theVideodeclasse.comographe 2000-D unit. Computer aided detection utilizing the [...] for biopsy. PQRI CPT II 3342F Code 14203, 58525 PQRI 225 CPT II 7025F TISSUE DENSITY: There are scattered areas of fibroglandular density.(BI-RADS category B) IMPRESSION: Benign. BI-RADS CATEGORY: 2 - BENIGN RECOMMENDATION: Screening bilateral mammogram is recommended in 1 year. Mammo Location: [facility], [address] [place] [address] -------- FINAL REPORT -------- Dictated By: Joseph Chaudhary Dictated Date: 11/20/2024 11:16 ET Assigned Physician: Joseph Chaudhary Reviewed and Electronically Signed By: Joseph Chaudhary Signed Date: 11/20/2024 11:19 ET Workstation ID: [id number] Transcribed By: Self Edit Transcribed Date: 11/20/2024 [...] probability of hip fracture of 0.9%. Code 10397 -------- FINAL REPORT -------- Dictated By: Joseph Chaudhary Dictated Date: 11/08/2024 11:55 ET Assigned Physician: Joseph Chaudhary Reviewed and Electronically Signed By: Joseph Chaudhary Signed Date: 11/08/2024 11:56 ET Workstation ID: [id number] Transcribed By: Self Edit Transcribed Date: 11/08/2024 [...] density of the femurs bilaterally is 0.886 gm/vd7noabk is 88% of that of young normals [...] probability of hip fracture of 0.9%. Code 65919 -------- FINAL REPORT -------- Dictated By: Joseph Chaudhary Dictated Date: 11/08/2024 11:55 ET Assigned Physician: Joseph Chaudhary Reviewed and Electronically Signed By: Joseph Chaudhary Signed Date: 11/08/2024 11:56 ET Workstation ID: [id number] Transcribed By: Self Edit Transcribed Date: 11/08/2024 11:55 ET Tanja Larkin MD IMG DXA PROCEDURES Final Resul t * HPV with reflex genotype (10/26/2024 12:00 AM EDT) HPV Negative Negative LAB MICROBIOLOGY METHOD 10/29/2024 3:58 PM EDT [facility] Brushing/Spatula Cervix uteri structure / Unknown 10/26/2024 10/29/2024 6:20 AM EDT Yenni Sandoval MD LAB MOLECULAR DIAGNOSTIC S ORDERABLES Final Result [facility] [address] [place] [address], * COLONOSCOPY [facility]est[facility] - MAC; [facility] (07/24/2024 8:04 AM EST) Anatomical Region Laterality Modality Endoscopy 07/24/2024 7:48 AM EST Impressions 07/24/2024 8:05 AM EST - Internal hemorrhoids. - The examination was otherwise normal. - No specimens collected. Recommendation: - Discharge patient to home. - Repeat colonoscopy in 10 years for surveillance. Narrative 07/24/2024 8:05 AM EST [facility] Patient Name: Kristy Li Procedure [...] verified by the physician, the nurse, the workforce specialist and the master automotive technician in the pre-procedure area in the [...] history of colonic polyps CPT copyright 2020 [employer]. All rights reserved. The codes documented in this report are preliminary and upon tree deadener review may be revised to meet current compliance requirements. Danica Park MD 07/24/2024 8:05:30 AM This report has been signed electronically.Danica Park MD Number of Addenda: 0 Note Initiated On: 07/24/2024 7:48 AM Scope Withdrawal Time: 0 hours 6 minutes 20 seconds Scope In: 7:53:45 AM Scope Out: 8:04:47 AM Endoscopy Department at [facility] - [address] [place] [phone] Procedure Note Danica Park MD - 07/24/2024 [facility] Patient Name: Kristy Li Procedure [...] the physician, the nurse, theanesthetist and the master automotive technician in the pre-procedure area in the [...] history of colonic polyps CPT copyright 2020 [employer]. All rights reserved. The codes documented in this report are preliminary and upon tree deadener reviewmay be revised to meet current compliance requirements. Danica Park MD 07/24/2024 8:05:30 AM This report has been signed electronically.Danica Park MD Number of Addenda: 0 Note Initiated On: 07/24/2024 7:48 AM Scope Withdrawal Time: 0 hours 6 minutes 20 seconds Scope In: 7:53:45 AM Scope Out: 8:04:47 AM Endoscopy Department at [facility] - [address] [place] [phone] IMPRESSION: - Internal hemorrhoids. - The examination was otherwise normal. - No specimens collected. Recommendation: - Discharge patient to home. - Repeat colonoscopy in 10 years forsurveillance. Danica Park MD GI~PROCEDURE ORDERABLES Fin al Result * Hepatitis C Screening (05/17/2022) Hepatitis C Screening Abstracted Historical Provider HEALTH MAINTENANCE Final Result from Last 3 Months or Most Recently Relevant to Health Maintenance Insurance MEDICARE MEDICARE [id number] [place]ICAID [place] Care Teams Camp Housekeeper Relationship Specialty Start Date End Date Tanja Larkin MD [address] [place] [phone] PCP - General Internal Medicine 05/04/24
--- OUTSIDE RECORDS SUMMARY | 2025-05-09 08:27 | XMS_ITS | Clinical Summary ---
Author Organization [facility] Address [address] [place] [phone] Phone Care Team Providers Care Freight Associate Name Role Phone Carlos Gonsales MD Primary Care Provider [phone] Social History Tobacco Use Types Packs/Day Years [...] Medical Devices Not on file Insurance BLUE [place] OUT STATE PPO OUT [facility] PPO OUT [facility] PPO BL[employer] [place] OUT OF STATE PPO [facility] OUT OF STATE PPO [facility] OUT OF STATE PPO OUT [facility] [place] [address] [place] [address] PPO [employer] [place] OUT OF STATE PPO Care Teams Freight Associate Relationship Specialty Start Date End Date Carlos Gonsales MD [address] [place] [address] PCP - General Internal Medicine 08/14/21 Additional Source Comments The information contained in this document represents components of the legal health record. It is not the complete legal health record.[facility]
--- OUTSIDE RECORDS SUMMARY | 2025-05-09 08:27 | XMS_ITS | Encounter Summary ---
Author Organization [employer] Address [address] [place] [address] Care Team Providers Care Skoog Machine Operator Name Role Phone Unavailable Primary Care Provider Unavailabl e Reason for Visit * Reason Onset Date Comments walking in 12/19/2023 Encounter Details Date Type Department Care Team (Late st Contact Info) Description 12/19/2023 Telephone [facility] [address] [place] [address] Lopez Gill BDS [address] [place] [address] walking in Social History Tobacco Use Types [...] Ordaz - 12/19/2023 12:47 PM EDT Contacted [facility] and motel front desk clerk informed if patient is looking to be [...]
--- OUTSIDE RECORDS SUMMARY | 2025-05-09 08:27 | XMS_ITS | Encounter Summary ---
Author Organization [facility] Address [address] [place] [address] [address] [place] [address] Care Team Providers Care [employer] Senior Sergeant Name Role Phone Unavailable Primary Care Provider Unavailabl e Reason for Visit * Reason Comments Med Refill Encounter Details Date Type Department Care Team (Late st Contact Info) Description 05/31/2024 Refill [facility] [address] [place] [address] Chet Wade DDS [address] [place] [address] Social History Tobacco Use Types Packs/Day Years [...]
--- OUTSIDE RECORDS SUMMARY | 2025-05-09 08:27 | XMS_ITS | Continuity of Care Document ---
Author Organization [place] - [facility], [facility] Address [address] [place] [address] Care Team Providers Care Sfdc Consultant Name Role Phone JOE COOLEY Primary Care Provider [phone] Assessment Encounter Date Assessment Date Assessment LastModified by Organization Details LastModified Time 05/08/2025 05/08/2025 Follow up with referring provider. Not available 05/08/2025 15:34:57 Plan of Treatment Reminders Order Date Submit Date Provider Last Modified By Organization Details Last Modified Time Details Appointments Hearing Test Same Day (First) 2025 03:00P M Hearing Test Not available Not available Not available Establish ed 30 2025 03:30P M GRISELDA CERDA MD Not available Not available Not available Lab None recorded. Referral None recorded. Procedures None recorded. Surgeries None recorded. Imaging None recorded. Medication Orders None recorded. Patient TargetsNo targets recorded. Patient InstructionsNo instructions recorded. Reason for Referral None Reported. Results Created Date Observation Date Name Description Value Unit Range Abnormal Flag Note LastModifiedBy Organization Detail LastModifiedTime 05/08/20 25 audio gram No observ ation record ed. BARCODE Not Available 2024 16:12:54 Result Notes None recorded. Problems Name Problem SNOMED Code Status Onset Date Resolution Date Notes Provider Name and Address Organization Details Recorded Time Allergic rhinitis 37926275 Active 2014 Allergic rhinitis: Due to other allergen; Note: Date Diagnosed : 08/21/2014 11:43 AM (477.8) GRISELDA MICHAELS MD [address] [place] [address], [facility] [place], [address] , [facility] - [facility] 5 11:33:28 Allergic rhinitis caused by pollen 57113574 Active 2015 Allergic rhinitis: Pollinosi s; CMS Risk: low risk [facility] Treatment : new problem (to examiner) : no additiona l workup planned N ote: Date Diagnosed : 07/09/2014 11:57 AM (477.0) ; Start Date : 5 Allergi c rhinitis due to pollen; Note: Date Diagnosed : 08/15/2015 1:47 PM (J30.1) Not Available [facility] 4 02:31:33 Headache 41785867 Active 2015 Headache; Note: Date Diagnosed : 10/06/2015 9:13 AM (R51) Not Available [facility] 4 02:31:17 Snoring 55370339 Active 2015 Snoring; Note: Date Diagnosed : 10/06/2015 9:13 AM (R06.83) Not Available [facility] 4 02:31:32 Chronic rhinitis 15645035 Active 2015 Chronic rhinitis; Note: Date Diagnosed : 11/17/2015 4:40 PM (J31.0) Not Available [facility] 4 02:31:20 Fatigue 51873665 Active 2015 Other fatigue; Note: Date Diagnosed : 11/17/2015 4:18 PM (R53.83) Not Available [facility] 4 02:31:36 Obstructi ve sleep apnea syndrome 36569269 Active 2015 Obstructi ve sleep apnea (adult) (pediatri c); Note: Date Diagnosed : 11/17/2015 4:16 PM (G47.33) Not Available [facility] 4 02:31:24 Sensorine ural hearing loss of bilateral ears 664323461 Active 2016 Sensorine ural hearing loss, bilateral ; Note: Date Diagnosed : 7 4:34 PM (H90.3) Not Available [facility] 4 02:31:30 Mild intermitt ent asthma 712294222 Active 2016 Mild intermitt ent asthma, uncomplic ated; Note: Date Diagnosed : 7 4:21 PM (J45.20) Not Available [facility] 4 02:31:16 Abnormal auditory perceptio n 41693321 Active 2016 Other abnormal auditory perceptio ns, bilateral ; Note: Date Diagnosed : 7 4:21 PM (H93.293) Not Available [facility] 4 02:31:32 Bilateral tinnitus 91122463225 02 Active 2016 Tinnitus, bilateral ; Note: Date Diagnosed : 7 4:21 PM (H93.13) Not Available [facility] 4 02:31:26 Bilateral earache 192125686 Active 2019 Otalgia, bilateral ; Note: Date Diagnosed : 08/28/2019 3:36 PM (H92.03) Not Available [facility] 4 02:31:28 Nasal congestio n 45635473 Active 2019 Nasal congestio n; Note: Date Diagnosed : 08/28/2019 3:37 PM (R09.81) Not Available [facility] 4 02:31:26 Bilateral temporoma ndibular joint pain 55817345188 274235 Active 2019 Arthralgi a of bilateral temporoma ndibular joint; Note: Date Diagnosed : 08/28/2019 3:36 PM (M26.623) Not Available [facility] 4 02:31:23 Recurrent acute sinusitis 986113710 Active 2020 Other acute recurrent sinusitis ; Note: Date Diagnosed : 09/01/2020 2:42 PM (J01.81) GRISELDA MICHAELS MD [address] [place] [address],[place] [address], [place], [address] , [place] - [facility] 5 11:33:21 Chronic sinusitis 76427581 Active 2023 GRISELDA MICHAELS MD [address] [place] [address],[place] [address], [place], [address] , [place] - [facility] 4 10:30:30 Moderate persisten t asthma 679540878 Active 2023 GRISELDA MICHAELS MD [address] [facility] [place] [address], [place], [address] , [facility] - [facility] 4 10:30:36 Hypertrop hy of nasal turbinate s 34635348 Active 2024 GRISELDA MICHAELS MD [address] [facility],[place] [address], [place], [address] , [facility] - [facility] 5 11:33:32 Problem Notes None recorded. Procedures Surgical History Date Name Laterality Status Provider Name and Address Organization Details Recorded Time 5 Air & Speech Audio with Tymps - 32551, 08385 & 58206 completed ARBEN BLAKE AuD [address] [facility],[place] [address], [place], [address], [facility] 05/08/2025 15:34:57 5 JMSNasal/Sinus Endoscopy completed GRISELDA MURDOCK MD [address] [facility],[address], [address], [facility] 11/13/2024 11:21:20 4 Comp Audio with Tymps - 12908 & 16014 completed SIDDHARTH HODGES, AUD [address] [facility],[address], [address], [facility] 04/25/2024 09:42:50 Imaging Results None recorded. Procedure Notes None recorded. Medical Equipment None Reported. Allergies Allergen ID Allergen Name Allergen Category Reaction Reaction Severity Criticality Documentation Date Start Date Code Code System Note Provider Name and Address Organization Details Recorded Time 25121 ibuprofen medicatio n other Not available Not available 11/08/2023 5640 RxNorm React ion: unkno wn, unspe cifie d;; Not Available [facility] 4 01:01:11 05396 codeine sulfate medicatio n other Not available Not available 11/08/2023 05747 RxNorm React ion: unkno wn, unspe cifie d;; Not Available [facility] 4 01:01:20 89061 acetamino phen / oxycodone medicatio n other Not available Not available 11/08/2023 96977 3 RxNorm React ion: unkno wn, unspe cifie d;; Not Available [facility] 4 01:01:23 Medications Name Sig Start Date Stop Date Status Note LastModified by Organization Details LastModified Time cyclobenz aprine 10 mg tablet TAKE ONE TABLET BY MOUTH AT BEDTIME NEEDED active Not Available Not Available No t Available amoxicill in 500 mg capsule TAKE TWO CAPSULES BY MOUTH TWICE DAILY FOR FOURTEEN DAYS 05/08 completed Not Available Not Available Not Available clotrimaz ole 10 mg jeronimo DISSOLVE ONE jeronimo BY MOUTH FIVE TIMES DAILY 04/25 completed Not Available Not Available Not Available nystatin 100,000 unit/mL oral suspensio n TAKE FOUR ml's BY MOUTH THREE TIMES DAILY 05/08 completed Not Available Not Available Not Available potassium chloride ER 10 mEq capsule,e xtended release TAKE ONE CAPSULE TWICE DAILY 05/08 completed Not Available Not Available Not Available gabapenti n 600 mg tablet TAKE ONE TABLET THREE TIMES DAILY 04/25 completed Not Available Not Available Not Available doxycycli ne hyclate 100 mg capsule TAKE 1 CAPSULE BY MOUTH TWICE A DAY FOR 20 DAYS 11/13 completed Not Available Not Available Not Available atorvasta tin 20 mg tablet TAKE ONE TABLET DAILY active Not Available Not Available No t Available tizanidin e 2 mg tablet TAKE 1 TABLET 3 TIMES A DAY BY ORAL ROUTE, FOR PAIN. 05/08 completed Not Available Not Available Not Available albuterol sulfate 2.5 mg/3 mL (0.083 %) solution for nebulizat ion USE ONE AMPULE USING A NEBULIZE R EVERY 4 HOURS NEEDED FOR WHEEZING OR SHORTNES S OF BREATH active Not Available Not Available No t Available trazodone 50 mg tablet TAKE 1/2 TO 1 TABLET EVERY DAY NEEDED FOR SLEEP active Not Available Not [...] ONE TABLET DAILY DAYS TWO through 10 05/08 completed Not Available Not Available Not Available clarithro mycin 500 mg tablet TAKE ONE TABLET BY MOUTH TWICE DAILY FOR FOURTEEN DAYS 05/08 completed Not Available Not Available Not Available [...] THEN ONE-HALF TABLET DAILY FOR FOUR DAYS 05/08 completed Not Available Not Available Not Available alendrona te 70 mg tablet TAKE 1 TABLET ONCE A WEEK WITH 6 TO 8 OZ OF WATER 30 MINUTES BEFORE FIRST FOOD OF THE DAY. DO NOT LIE DOWN FOR 30 MINUTES. 05/08 completed Not Available Not Available Not Available dexametha sone 6 mg tablet TAKE 2 TABLETS BY MOUTH ONCE 04/25 completed Not Available Not Available Not Available sulfameth oxazole 800 mg-trimet hoprim 160 mg tablet TAKE ONE TABLET TWICE DAILY 04/25 completed Not Available Not Available Not Available doxycycli ne monohydra te 100 mg tablet TAKE 1 TABLET TWICE DAILY WITH WATER UNTIL FINISHED . DO NOT LIE DOWN FOR 30 MINUTES AFTER 05/05 completed Not Available Not Available Not Available tramadol 50 mg tablet TAKE 1 TO 2 TABLETS BY MOUTH EVERY 6 HOURS NEEDED FOR MILD PAIN. DO NOT EXCEED 8 TABLETS (400MG) PER DAY. 05/08 completed Not Available Not Available Not Available Sudogest 30 mg tablet TAKE TWO TABLETS (60mg's) BY MOUTH EVERY 6 HOURS NEEDED FOR CONGESTI ON FOR UP TO 14 DAYS 05/08 completed Not Available Not Available Not Available pantopraz ole 20 mg tablet,de layed release TAKE ONE TABLET DAILY 04/25 completed Not Available Not Available Not Available hydromorp mirta 2 mg tablet TAKE 1 TO 2 TABLETS BY MOUTH EVERY 6 HOURS NEEDED FOR PAIN. 05/08 completed Not Available Not Available Not Available prednisol one acetate 1 % eye drops,evaristo [facility] LOCATION : BOTH EYES. INSTILL ONE DROP INTO BOTH EYES 4 TIMES A DAY FOR 10 DAYS 05/08 completed Not Available Not Available Not Available magnesium oxide 400 mg (241.3 mg magnesium ) tablet TAKE ONE TABLET AT BEDTIME active Not Available Not Available No t Available methocarb aydee 750 mg tablet TAKE ONE TABLET THREE TIMES DAILY NEEDED FOR PAIN 05/08 completed Not Available Not Available Not Available meclizine 25 mg tablet TAKE ONE TABLET EVERY 8 HOURS NEEDED active Not Available Not Available No t Available doxycycli ne monohydra te 100 mg capsule TAKE ONE CAPSULE TWICE DAILY FOR 14 DAYS 05/08 completed Not Available Not Available Not Available pantopraz ole 40 mg tablet,de layed [...] ONE TABLET TWICE DAILY NEEDED FOR ANXIETY 05/08 completed Not Available Not Available Not Available bisacodyl 5 mg tablet,de layed release TAKE TWO TABLETS right BEFORE beginnin g BOWEL prep 05/08 completed Not Available Not Available Not Available azelastin e 137 mcg (0.1 %) nasal spray Inhale 2 spray into both nostrils twice a day as directed 10/11 completed Medicati on ID: [id number] aMrcelino hopper By Name: RUBI Silverio nd Name: sheridan yancey Send Method: E-Prescr ibed Sub s Allowed: subs OK Medic ationGen ericName : sheridan yancey Not Available Not Available Not Available Nasonex 50 mcg/actua tion [place] 2 spray into both nostrils 10/11 completed Medicati on ID: [id number] D uration Value: 90 Prescri bed By Name: RUBI Chery nd Name: Nasonex Send Method: E-Prescr ibed Sub s Allowed: subs OK Medic ationGen ericName : Nasonex Not Available Not Available Not Available methylpre dnisolone 4 mg tablets in a dose pack TAKE DIRECTED ON PACKAGE 05/08 completed Not Available Not Available Not Available ipratropi um bromide 42 mcg (0.06 %) nasal spray USE TWO SPRAYS IN EACH NOSTRIL TWICE DAILY active Not Available Not Available No t Available hydroxyzi ne HCl 10 mg tablet TAKE 1 TABLET BY MOUTH FOUR TIMES A DAY NEEDED FOR ITCHING 05/08 completed Not Available Not Available Not Available amoxicill in 875 mg-potass ium clavulana [...] Not Available Not Available No t Available cyclobenz aprine 5 mg tablet TAKE 1 TABLET 3 TIMES A DAY BY ORAL ROUTE, FOR NEEDED FOR PAIN/SPA SM. active Not Available Not Available No t Available cyclospor ine 0.05 % eye drops in a dropperet te INSTILL 1 DROP INTO BOTH EYES TWICE A DAY active Not Available Not Available No t Available nitrofura ntoin monohydra te/macroc rystals 100 mg capsule TAKE 1 CAPSULE TWICE A DAY FOR 7 DAYS 05/08 completed Not Available Not Available Not Available duloxetin e 30 mg capsule,d elayed release TAKE ONE CAPSULE TWICE DAILY IN THE MORNING AND afternoo n 04/25 completed Not Available Not Available Not Available duloxetin e 60 mg capsule,d elayed release TAKE ONE CAPSULE EVERY MORNING active Not Available Not Available No t Available pregabali n 150 mg capsule TAKE [...] FOR 10 DAYS. SPIT/ DO NOT SWALLOW 05/08 completed Not Available Not Available Not Available calcium 600 mg (as carbonate )-vitamin D3 10 mcg (400 unit) tablet TAKE ONE TABLET TWICE DAILY active Not Available Not Available No t Available peg 3350-elec trolytes 236 gram-22.7 4 gram-6.74 gram-5.86 gram solution MIX DIRECTED AND STARTING AT 6PM THE NIGHT BEFORE PROCEDUR E DRINK 8 OZ AT OWN PACE UNTIL ONE-HALF GALLON DONE. FINISH 2ND ONE-HALF 5 LATER 05/08 completed Not Available Not Available Not Available Flovent Diskus 50 mcg/actua tion powder for inhalatio n 02/22 completed Medicati on ID: [id number] P marlyribe d By Name: Heydi Mann [...] nasal spray 11/16 completed Medicati on ID: [id number] Pr escribed By Name: Heydi Mcgraw rd, nd Name: Astepro Send Method: E-Prescr ibed Sub s Allowed: subs OK Speci al Instruct ion: 2 sprays intranas al bid Medi cationGe nericNam e: Astepro Not Available Not Available Not Available Eliquis 2.5 mg tablet TAKE 1 TABLET BY MOUTH TWO TIMES A DAY 05/08 completed Not Available Not Available Not Available Flonase Allergy Relief 50 mcg/actua tion nasal spray,evaristo pension 2 puff into both nostrils 05/08 completed Medicati on ID: [id number] D uration Value: 30 Prescri bed By Name: RUBI Chery nd Name: Flonase Allergy Relief S end Method: E-Prescr ibed Sub s Allowed: subs OK Medic ationGen ericName : Flonase Allergy Relief Not Available Not Available Not Available duloxetin e 40 mg capsule,d elayed release TAKE ONE CAPSULE DAILY IN THE AFTERNOO N active Not Available Not Available No t [...] subcutane ous pen injector INJECT 0.5 ML SUBCUTAN EOUSLY WEEKLY 05/08 completed Not Available Not Available Not Available Vitals Date Recorded Body height Body mass index (BMI) Body weight Systolic And Diastolic Provider Name and Address Organization Details Last Updated DateTime 05/08/2025 149.86 cm 30.5 kg/m2 89185.45 g 124/80 mm[Hg] Bertha Frost [place] - [facility] 05/08/2025 15:48:31 Social History None recorded. Functional Status None [...] ICD10 Code Diagnosis IMO Codes Diagnosis Note [id number] GRISELDA MICHAELS MD [facility] of [address] [address] 05/08/2025 15:01:28 05/08/2025 16:18:02 Bilateral tinnitus [id number] 102 H93.13 Today we discussed the pathophysi ology of tinnitus and the absence of consistent ly successful pharmacolo gic treatments for tinnitus. We discussed masking strategies to decrease awareness of the tinnitus, including using a white noise machine, music, CodeGuard tinnitus thom or television . We discussed how exposure to loud noise can worsen tinnitus so I recommende d hearing protection . We also discussed other ways to potentiall y help reduce awareness of tinnitus including avoidance of caffeine, salty meals and NSAIDs. Sensorineu ral hearing loss of bilateral ears [id number] H90.3 Audiologic al evaluation results: Right ear: Normal through 2 kHz sloping to a moderate sensorineu ral hearing loss with excellent word recognitio n. Left ear: Normal through 3 kHz sloping to a moderate sensorineu ral hearing loss with excellent word recognitio n. Tympanomet ry: Right Ear:Type A Left Ear:Type A [id number] Lita TOMLINSON [facility] of [address] [address] 05/08/2025 15:34:49 05/08/2025 15:35:57 Sensorineural hearing loss of bilateral ears 767321336 H90.3 Audiologic al evaluation results: Right ear: Normal hearing from 250 through 3000 Hz sloping to a moderate sensorineu ral hearing loss with excellent word recognitio n. Left ear: Normal hearing from 250 through 3000 Hz sloping to a moderate sensorineu ral hearing loss with excellent word recognitio n. Tympanomet ry: Right Ear:Type A Left Ear:Type A Health Concerns Section Related Observation LastModified by Organization Detai ls LastModified Time None Recorded Concern Status LastModified by Organization Details LastModified Time None Recorded Payers Encounter Date Sequence Insurance Name Policy Number Policy Redman Covered Member ID Redman Member ID Guarantor Name 05/08/2025 1 [place] [employer] Kristy Li [id number] Kristy Li 05/08/2025 2 [place] [id number] Kristy Li [id number] Kristy Li Notes Date Note Type Note Provider Name and Address Organization Details Recorded Time 05/08/2025 text/html Kristy Li is a 55-year-old female who presents for evaluation of bilateral tinnitus. She reports ringing in both ears, which she associates with high tone hearing loss. She denies the use of hearing aids and states that she does not consume alcohol, caffeine, or adobo due to its association with migraines. She mentions using Himalayan salt and garlic powder in her diet instead of pepper due to gastrointestinal concerns. No additional medical history, surgeries, allergies, family history, or previous treatments were discussed during the visit. GRISELDA MURDOCK MD [address], [address], [facility] 05/08/2025 16:36:29 05/08/2025 text/html Audiological Evaluation HPIReported by PatientHearing LossFor hearing loss perceived, patient reportshearing loss in both ears (no differences noted between ears). Lita TOMLINSON [address] [place] [address], [phone], [facility] 05/08/2025 15:35:56 OBGyn Episode No OBEpisode recorded.
--- OUTSIDE RECORDS SUMMARY | 2025-05-09 08:27 | XMS_ITS | Encounter Summary ---
Author Organization [employer] Address [address] [facility] [address] [place] [address] Care Team Providers Care It Associate Name Role Phone Unavailable Primary Care Provider Unavailabl e Reason for Visit * Reason Comments Med Refill Encounter Details Date Type Department Care Team (Late st Contact Info) Description 04/10/2024 Refill [facility] [address] [place] [address] Chet Wade DDS [address] [place] [address] Social History Tobacco Use Types Packs/Day Years [...]
--- OUTSIDE RECORDS SUMMARY | 2025-05-09 08:27 | XMS_ITS | Encounter Summary ---
Author Organization [facility] Address [address] [place] [address] Care Team Providers Care Poultry Inseminator Name Role Phone Tanja Larkin MD Primary Care Provider [phone] Reason for Visit * Reason Onset Date Comments Sleep Study 05/01/2025 Encounter Details Date Type Department Care Team ([facility] st Contact Info) Description 05/01/2025 Telephone Pulmonology - [place] [address] [facility] [address] [place] [address] Abhay Coppola MD [address] [place] [phone] Social History Tobacco Use Types Packs/Day Years [...] your loved ones. 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 Please follow up with patient. documented in this encounter Plan of Treatment Upcoming Encounters Date Type Department Care Team (Late st Contact Info) Description 06/10/2025 9:00 AM EST Office Visit Pulmonology - [place] [address] [place] [address] Abhay Coppola MD [address] [place] [phone] 06/18/2025 8:40 AM EST Office Visit [facility] - [address] [place] [address] Marycarmen Georges, FRED [address] [place] [address] [address] [place] [phone] 07/31/2025 8:50 AM EST Office Visit Gastroenterology - [address] [place] [address] Daphnie Almanza PA [address] [place] [address] 09/03/2025 9:45 AM EDT Office Visit Internal Medicine - [place] [address] [place] [address] Tanja Larkin MD [address] [place] [phone] documented as of this encounter Visit Diagnoses Not on filedocumented in this encounter Additional Health Concerns Assessment Noted Time PHQ-9 Depression Total Score: 19 025 3:44 PM EST documented as of this encounter Care Teams Poultry Inseminator Relationship Specialty Start Date End Date Tanja Larkin MD [facility] [address] [place] [phone] PCP - General Internal Medicine 05/04/24 documented as of this encounter
--- OUTSIDE RECORDS SUMMARY | 2025-05-09 08:27 | XMS_ITS | Encounter Summary ---
Author Organization [facility] Address [address] [place] [address] [address] [place] [address] Care Team Providers Care Adult Secondary Education Instructor Name Role Phone Unavailable Primary Care Provider Unavailabl e Reason for Visit * Reason Onset Date Comments Extraction 03/22/2024 Encounter Details Date Type Department Care Team (Late st Contact Info) Description 03/22/2024 Telephone [facility] D[facility] [address] [place] [address] Lopez Gill BDNicky [address] [place] [address] Extraction Social History Tobacco Use Types Packs/Day [...]
--- OUTSIDE RECORDS SUMMARY | 2025-05-09 08:27 | XMS_ITS | Data Portability ---
Author Organization [place] - [facility], Allergy Address [address] [place] [phone] Care Team Providers Care Civil Engineering Designer Name Role Phone JOE COOLEY Primary [...] as planned [email or web address] Not available 01/14/2025 09:36:01 05/08/2025 05/08/2025 Follow up with referring provider. 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 No hearing aids are required at this time. For management of tinnitus, I recommend using the RIVS Tinnitus thom, which provides soothing sounds such as waterfall and raindrop noises to help alleviate symptoms. I advised the patient to continue avoiding alcohol, caffeine, and Adobo, as these have been associated with her migraines. She is encouraged to maintain her current dietary modifications, including the use of Himalayan salt and garlic powder, which she finds beneficial for her gastrointestinal health. FOLLOW-UP: No specific follow-up details were discussed during this visit. [email or web address] Not available 05/08/2025 16:36:21 Plan of Treatment Reminders Order Date Submit Date Provider Last Modified By Organization Details Last Modified Time Details Appointments Hearing Test Same Day (First) 2025 03:00P M Hearing Test Not available Not available Not available Establi shed 30 2025 03:30P M GRISELDA CERDA MD Not available Not available Not available Lab None recorde d. Referral None recorde d. Procedures None recorde d. Surgeries None recorde d. Imaging CT, sinuses , w/o contras t 2024 025 [email or web address] [facility] Of [address], [address], 01/14/2025 09:36:36 CT, maxillo facial, w/o contras t 2024 025 [email or web address] [facility], [address] [place] [address], [phone], 11/20/2024 09:39:17 Medication Orders None recorde d. Patient TargetsNo targets recorded. Patient Instructions Encounter Date Encounter Id Patient Instructions Last Modified By Organization Details Last Modified Time 11/13/2024 [id number] Patient with history of allergic rhinitis and [...] the sinuses [email or web address] Not available 11/13/2024 11:34:22 05/08/2025 [id number] - Use the RIVS Tinnitus thom for soothing sounds to manage tinnitus. - Continue avoiding alcohol, caffeine, and adobo to prevent migraines. - Maintain dietary modifications, including Himalayan salt and garlic powder, for gastrointestinal health. [email or web address] Not available 05/08/2025 15:49:02 Please note: Par ts of this encounter note have been generated by AI based on audio conversation. Patient consent was required prior to utilizing this technology. Content review was required prior to finalizing the note. [email or web address] Not available 05/08/2025 15:49:02 Reason for Referral None Reported. Results Created Date Observation Date Name Description Value Unit Range Abnormal Flag Note LastModifiedBy Organization Detail LastModifiedTime 04/25/20 24 audio gram No observ ation record ed. [email or web address] Not Available 03/29 10:55:50 01/15/[address], sinus es, w/o contr ast No observ ation record ed. [facility] [address], [address], 01/14/2025 09:33:25 02/10/20 25 01/14/2025 CT, sinus es, w/o contr ast No observ ation record ed. [facility] [address] [address], [place], [address], 02/10/2025 14:06:55 05/08/20 25 audio gram No observ ation record ed. BARCODE Not Available 2024 16:12:54 Result Notes None recorded. Problems Name Problem SNOMED Code Status Onset Date Resolution Date Notes Provider Name and Address Organization Details Recorded Time Allergic rhinitis 63551878 Active 2014 Allergic rhinitis: Due to other allergen; Note: Date Diagnosed : 08/21/2014 11:43 AM (477.8) GRISELDA MICHAELS MD [address] [place] [address] [place], [address] , [facility] - [facility] 11:33:28 Allergic rhinitis caused by pollen 99255908 Active 2015 Allergic rhinitis: Pollinosi s; CMS Risk: low risk CMS Treatment : new problem (to examiner) : no additiona l workup planned N ote: Date Diagnosed : 07/09/2014 11:57 AM (477.0) ; Start Date : 5 Allergi c rhinitis due to pollen; Note: Date Diagnosed : 08/15/2015 1:47 PM (J30.1) Not Available [facility] 4 02:31:33 Headache 65651800 Active 2015 Headache; Note: Date Diagnosed : 10/06/2015 9:13 AM (R51) Not Available [facility] 4 02:31:17 Snoring 48546486 Active 2015 Snoring; Note: Date Diagnosed : 10/06/2015 9:13 AM (R06.83) Not Available [facility] 4 02:31:32 Chronic rhinitis 88736951 Active 2015 Chronic rhinitis; Note: Date Diagnosed : 11/17/2015 4:40 PM (J31.0) Not Available [facility] 4 02:31:20 Fatigue 26516901 Active 2015 Other fatigue; Note: Date Diagnosed : 11/17/2015 4:18 PM (R53.83) Not Available [facility] 4 02:31:36 Obstructi ve sleep apnea syndrome 45451127 Active 2015 Obstructi ve sleep apnea (adult) (pediatri c); Note: Date Diagnosed : 11/17/2015 4:16 PM (G47.33) Not Available [facility] 4 02:31:24 Sensorine ural hearing loss of bilateral ears 226110320 Active 2016 Sensorine ural hearing loss, bilateral ; Note: Date Diagnosed : 7 4:34 PM (H90.3) Not Available [facility] 4 02:31:30 Mild intermitt ent asthma 454547135 Active 2016 Mild intermitt ent asthma, uncomplic ated; Note: Date Diagnosed : 7 4:21 PM (J45.20) [facility] 4 02:31:16 Abnormal auditory perceptio n 58171270 Active 2016 Other abnormal auditory perceptio ns, bilateral ; Note: Date Diagnosed : 7 4:21 PM (H93.293) Not Available [facility] 4 02:31:32 Bilateral tinnitus 06048079209 02 Active 2016 Tinnitus, bilateral ; Note: Date Diagnosed : 7 4:21 PM (H93.13) Not Available [facility] 4 02:31:26 Bilateral earache 352668714 Active 2019 Otalgia, bilateral ; Note: Date Diagnosed : 08/28/2019 3:36 PM (H92.03) Not Available [facility] 4 02:31:28 Nasal congestio n 56953299 Active 2019 Nasal congestio n; Note: Date Diagnosed : 08/28/2019 3:37 PM (R09.81) Not Available [facility] 4 02:31:26 Bilateral temporoma ndibular joint pain 78044695013 829039 Active 2019 Arthralgi a of bilateral temporoma ndibular joint; Note: Date Diagnosed : 08/28/2019 3:36 PM (M26.623) Not Available [facility] 4 02:31:23 Recurrent acute sinusitis 138312929 Active 2020 Other acute recurrent sinusitis ; Note: Date Diagnosed : 09/01/2020 2:42 PM (J01.81) GRISELDA MICHAELS MD [address] [place] [address],[place] [address], [place], [address] , [place] [facility] 5 11:33:21 Chronic sinusitis 27056904 Active 2023 GRISELDA MICHAELS MD [address] [place] [facility],[place] [address], [place], [address] , [place] [facility] 4 10:30:30 Moderate persisten t asthma 603185967 Active 2023 GRISELDA MICHAELS MD [address] [place] [address],[place] [address], [place], [address] , [place] [facility] 4 10:30:36 Hypertrop hy of nasal turbinate s 99006588 Active 2024 GRISELDA MICHAELS MD [address] [place] [facility],[place] [address], [place], [address] , [facility] 5 11:33:32 Problem Notes None recorded. Procedures Surgical History Date Name Laterality Status Provider Name and Address Organization Details Recorded Time 5 Air & Speech Audio with Tymps - 84935, 01233 & 76071 completed ARBEN BLAKE, [facility] [address] [place] [facility],[address], [address], [facility] - [facility] 05/08/2025 15:34:57 5 JMSNasal/Sinus Endoscopy completed GRISELDA MURDOCK MD [address] [place] [facility],[address], [address], [facility] 11/13/2024 11:21:20 4 Comp Audio with Tymps - 05523 & 43440 completed SIDDHARTH HODGES, [facility] [address] [place] [facility],[place] [address], [place], [address], [facility] 04/25/2024 09:42:50 Imaging Results None recorded. Procedure Notes None recorded. Medical Equipment None Reported. Allergies Allergen ID Allergen Name Allergen Category Reaction Reaction Severity Criticality Documentation Date Start Date Code Code System Note Provider Name and Address Organization Details Recorded Time 80408 ibuprofen medicatio n other Not available Not available 11/08/2023 5640 RxNorm React ion: unkno wn, unspe cifie d;; Not Available [facility] 4 01:01:11 29076 codeine sulfate medicatio n other Not available Not available 11/08/2023 03609 RxNorm React ion: unkno wn, unspe cifie d;; Not Available [facility] 4 01:01:20 91726 acetamino phen / oxycodone medicatio n other Not available Not available 11/08/2023 96488 3 RxNorm React ion: unkno wn, unspe cifie d;; Not Available [facility] 4 01:01:23 Medications Name Sig Start Date [...] Available prednisol one acetate 1 % eye drops,[facility] LOCATION : BOTH EYES. INSTILL ONE DROP [...] as directed 10/11 completed Medicati on ID: [id number] Marcelino garces d By Name: RUBI Silverio nd Name: azelasti ne Send Method: E-Prescr ibed Sub s Allowed: subs OK Medic ationGen ericName : azelasti ne Not Available Not Available Not Available Nasonex 50 mcg/actua tion [place] 2 spray into both nostrils 10/11 completed Medicati on ID: [id number] D uration Value: 90 Prescri bed By [...] inhalatio n 02/22 completed Medicati on ID: [id number] P marlyribe d By Name: Heydi Mann [...] nasal spray 11/16 completed Medicati on ID: [id number] Pr escribed By Name: Heydi Mcgraw rd, [...] both nostrils 05/08 completed Medicati on ID: [id number] D uration Value: 30 Prescri bed By [...] Updated DateTime 11/13/2024 149.86 cm 29.9 kg/m2 35750.67 g Anca Lewis [place] [facility] 11/13/2024 11:00:31 Date Recorded Body height Body mass index (BMI) Body weight Systolic And Diastolic Provider Name and Address Organization Details Last Updated DateTime 05/08/2025 149.86 cm 30.5 kg/m2 14058.45 g 124/80 mm[Hg] Bertha Frost [place] [facility] 05/08/2025 15:48:31 Social History None recorded. [...] ICD10 Code Diagnosis IMO Codes Diagnosis Note [id number] GRISELDA MICHAELS MD [facility] [address] [address] 04/25/2024 09:11:31 04/25/2024 10:34:58 Bilateral tinnitus 3870931912 102 H93.13 Sensorineu ral hearing loss of bilateral ears 455959018 H90.3 Audiologic al evaluation results: Right ear: Normal through 2 kHz sloping to a moderate sensorineu ral hearing loss with excellent word recognitio n. Left ear: Normal through 3 kHz sloping to a moderate sensorineu ral hearing loss with excellent word recognitio n. Tympanomet ry: Right Ear:Type A Left Ear:Type A Chronic sinusitis 432682 00 J32.9 Moderate p ersistent asthma 360805964 J45.40 [id number] GRISELDA MICHAELS MD [facility] [address] [address] 11/13/2024 10:34:14 11/13/2024 11:41:51 Recurrent acute sinusitis 877115318 J01.81 3882637 Allergic rhinitis 971851 04 J30.9 1106285 Hypertroph y of nasal turbinates 71589960 J34.3 633744 Chronic sinusitis 717109 00 J32.9 [id number] GRISELDA MICHAELS MD [facility] [address] [address] 01/14/2025 08:59:25 01/14/2025 09:36:36 Chronic rhinitis 02523078 J31.0 [id number] GRISELDA MICHAELS MD [facility] [address] [address] 05/08/2025 15:01:28 05/08/2025 16:18:02 Bilateral tinnitus 7038054746 102 H93.13 Today we discussed the pathophysi ology of tinnitus and the absence of consistent ly successful pharmacolo gic treatments for tinnitus. We discussed masking strategies to decrease awareness of the tinnitus, including using a white noise machine, music, Keegy tinnitus thom or television . We discussed how exposure to loud noise can worsen tinnitus so I recommende d hearing protection . We also discussed other ways to potentiall y help reduce awareness of tinnitus including avoidance of caffeine, salty meals and NSAIDs. Sensorineu ral hearing loss of bilateral ears 324482788 H90.3 Audiologic al evaluation results: Right ear: Normal through 2 kHz sloping to a moderate sensorineu ral hearing loss with excellent word recognitio n. Left ear: Normal through 3 kHz sloping to a moderate sensorineu ral hearing loss with excellent word recognitio n. Tympanomet ry: Right Ear:Type A Left Ear:Type A [id number] Lita TOMLINSON [facility] [address] [address] 05/08/2025 15:34:49 05/08/2025 15:35:57 Sensorineural hearing loss of bilateral ears 389143357 H90.3 Audiologic al evaluation results: Right ear: [...] [place]man Member ID Guarantor Name 05/08/2025 1 [place] [id number] Edwin Guillermo [id number] [facility] 05/08/2025 1 [place] [employer] Kristy Li [id number] Kristy Li 05/08/2025 2 [place] Kristy Gregorys [id number] [facility] Notes Date Note Type Note Provider Name [...] and Dupixent for asthma. GRISELDA MURDOCK MD [facility] [place],[address], [address], [facility] 04/25/2024 10:32:04 11/13/2024 text/html ROS as noted [...] GI distress, not asthma GRISELDA MURDOCK MD [address] [facility] [place] [address], [place], [address], [facility] 11/13/2024 11:35:32 01/14/2025 text/html Follow-up for concerns of chronic right send possible sinusitis. Overall doing well. She still has occasional headache. History of allergy and migraine GRISELDA MURDOCK MD [address] [facility] [facility],[address], [address], [facility] 01/14/2025 09:36:08 05/08/2025 text/html Kristy Li is a 55-year-old [...] during the visit. GRISELDA MURDOCK MD [address] [facility] [facility],[place] [address], [place], [address], [facility] 05/08/2025 16:36:29 05/08/2025 text/html Audiological Evaluation HPIReported by PatientHearing LossFor hearing loss perceived, patient reportshearing loss in both ears (no differences noted between ears). Lita TOMLINSON [address] [facility] [facility],[place] [address], [place], [address], [facility] 05/08/2025 15:35:56 OBGyn Episode No OBEpisode recorded.
--- OUTSIDE RECORDS SUMMARY | 2025-05-09 08:27 | XMS_ITS | Continuity of Care Document ---
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 No hearing aids are required at this time. For management of tinnitus, I recommend using the [employer] Tinnitus thom, which provides soothing sounds such [...] None recorded. Patient TargetsNo targets recorded. Patient Instructions Encounter Date Encounter Id Patient Instructions Last Modified By Organization Details Last Modified Time 05/08/2025 [id number] - Use the [employer] Tinnitus thom for soothing sounds to manage [...] was required prior to finalizing the note. [email or web address] Not available 05/08/2025 15:49:02 Reason for Referral None Reported. Results Created Date Observation Date Name Description Value Unit Range Abnormal Flag Note LastModifiedBy Organization Detail LastModifiedTime 05/08/20 audio gram No observ ation record ed. BARCODE Not Available 2024 16:12:54 Result Notes None recorded. Problems Name Problem SNOMED Code Status Onset Date Resolution Date Notes Provider Name and Address Organization Details Recorded Time Allergic rhinitis 35644131 Active 2014 Allergic rhinitis: Due to other allergen; Note: Date Diagnosed : 08/21/2014 11:43 AM (477.8) GRISELDA MICHAELS MD [address] [place] [address], [place], [address] , [facility] - [facility] 5 11:33:28 Allergic rhinitis caused by pollen 24894445 Active 2015 Allergic rhinitis: Pollinosi s; [facility] Risk: low risk [facility] Treatment : new problem (to examiner) : no additiona l workup planned N ote: Date Diagnosed : 07/09/2014 11:57 AM (477.0) ; Start Date : 5 Allergi c rhinitis due to pollen; Note: Date Diagnosed : 08/15/2015 1:47 PM (J30.1) Not Available [facility] 4 02:31:33 Headache 91603609 Active 2015 Headache; Note: Date Diagnosed : 10/06/2015 9:13 AM (R51) Not Available [facility] 4 02:31:17 Snoring 55761883 Active 2015 Snoring; Note: Date Diagnosed : 10/06/2015 9:13 AM (R06.83) Not Available [facility] 4 02:31:32 Chronic rhinitis 15056407 Active 2015 Chronic rhinitis; Note: Date Diagnosed : 11/17/2015 4:40 PM (J31.0) Not Available [facility] 4 02:31:20 Fatigue 20363593 Active 2015 Other fatigue; Note: Date Diagnosed : 11/17/2015 4:18 PM (R53.83) Not Available [facility] 4 02:31:36 Obstructi ve sleep apnea syndrome 02922939 Active 2015 Obstructi ve sleep apnea (adult) (pediatri c); Note: Date Diagnosed : 11/17/2015 4:16 PM (G47.33) Not Available [facility] 4 02:31:24 Sensorine ural hearing loss of bilateral ears 212245460 Active 2016 Sensorine ural hearing loss, bilateral ; Note: Date Diagnosed : 7 4:34 PM (H90.3) Not Available [facility] 4 02:31:30 Mild intermitt ent asthma 874498946 Active 2016 Mild intermitt ent asthma, uncomplic ated; Note: Date Diagnosed : 7 4:21 PM (J45.20) Not Available [facility] 4 02:31:16 Abnormal auditory perceptio n 10957711 Active 2016 Other abnormal auditory perceptio ns, bilateral ; Note: Date Diagnosed : 7 4:21 PM (H93.293) Not Available [facility] 4 02:31:32 Bilateral tinnitus 61333640327 02 Active 2016 Tinnitus, bilateral ; Note: Date Diagnosed : 7 4:21 PM (H93.13) Not Available [facility] 4 02:31:26 Bilateral earache 490939372 Active 2019 Otalgia, bilateral ; Note: Date Diagnosed : 08/28/2019 3:36 PM (H92.03) Not Available [facility] 4 02:31:28 Nasal congestio n 98604739 Active 2019 Nasal congestio n; Note: Date Diagnosed : 08/28/2019 3:37 PM (R09.81) Not Available [facility] 4 02:31:26 Bilateral temporoma ndibular joint pain 61143125216 685623 Active 2019 Arthralgi a of bilateral temporoma ndibular joint; Note: Date Diagnosed : 08/28/2019 3:36 PM (M26.623) Not Available [facility] 4 02:31:23 Recurrent acute sinusitis 388639643 Active 2020 Other acute recurrent sinusitis ; Note: Date Diagnosed : 09/01/2020 2:42 PM (J01.81) GRISELDA MICHAELS MD [address] [facility],[place] [address], [place], [address] , [facility] - [facility] 5 11:33:21 Chronic sinusitis 97388210 Active 2023 GRISELDA MICHAELS MD [address] [place] [address],[place] [address], [place], [address] , [facility] - [facility] 4 10:30:30 Moderate persisten t asthma 913703508 Active 2023 GRISELDA MICHAELS MD [address] [place] [address],[place] [address], [place], [address] , [facility] - [facility] 4 10:30:36 Hypertrop hy of nasal turbinate s 31600519 Active 2024 GRISELDA MICHAELS MD [address] [place] [address],[place] [address], [place], [place], [address] , [facility] - [facility] 5 11:33:32 Problem Notes None recorded. Procedures Surgical History Date Name Laterality Status Provider Name and Address Organization Details Recorded Time 5 Air & Speech Audio with Tymps - 53315, 16973 & 53877 completed eBnjie TOMLINSON [address] [facility],[place] [address], [place], [address], [facility] - [facility] 05/08/2025 15:34:57 5 JMSNasal/Sinus Endoscopy completed GRISELDA MURDOCK MD [address] [facility], [place], [address], [facility] 11/13/2024 11:21:20 4 Comp Audio with Tymps - 45486 & 51181 completed BENJIE SOTO [address] [facility], [place], [address], [facility] 04/25/2024 09:42:50 Imaging Results None recorded. Procedure Notes None recorded. Medical Equipment None Reported. Allergies Allergen ID Allergen Name Allergen Category Reaction Reaction Severity Criticality Documentation Date Start Date Code Code System Note Provider Name and Address Organization Details Recorded Time 33058 ibuprofen medicatio n other Not available Not available 11/08/2023 5640 RxNorm React ion: unkno wn, unspe cifie d;; Not Available [facility] 4 01:01:11 18951 codeine sulfate medicatio n other Not available Not available 11/08/2023 64979 RxNorm React ion: unkno wn, unspe cifie d;; Not Available [facility] 4 01:01:20 47987 acetamino phen / oxycodone medicatio n other Not available Not available 11/08/2023 13304 3 RxNorm React ion: unkno wn, unspe [...] Available prednisol one acetate 1 % eye drops,[facility] LOCATION : BOTH EYES. INSTILL ONE [...] as directed 10/11 completed Medicati on ID: [id number] P mili d By Name: RUBI Silverio nd Name: azelasti ne Send Method: E-Prescr ibed Sub s Allowed: subs OK Medic ationGen ericName : azelasti ne Not Available Not Available Not Available Nasonex 50 mcg/actua tion Gilman 2 spray into both nostrils 10/11 completed Medicati on ID: [id number] D uration Value: 90 Prescri bed By [...] inhalatio n 02/22 completed Medicati on ID: [id number] [place] By Name: Heydi Mann nd Name: Flonase [...] nasal spray 11/16 completed Medicati on ID: [id number] Pr escribed By Name: Heydi Mcgraw rd, [...] both nostrils 05/08 completed Medicati on ID: [id number] D uration Value: 30 Prescri bed By [...] Updated DateTime 05/08/2025 149.86 cm 30.5 kg/m2 20112.45 g 124/80 mm[Hg] Bertha Frost [place] - [facility] 05/08/2025 15:48:31 Social History None recorded. [...] ICD10 Code Diagnosis IMO Codes Diagnosis Note [id number] GRISELDA MICHAELS MD [facility] [address] [address] 05/08/2025 15:01:28 05/08/2025 16:18:02 Bilateral tinnitus 2873784346 102 H93.13 Today we discussed the pathophysi ology of tinnitus and the absence of consistent ly successful pharmacolo gic treatments for tinnitus. We discussed masking strategies to decrease awareness of the tinnitus, including using a white noise machine, music, [employer] tinnitus thom or television . We discussed how exposure to loud noise can worsen tinnitus so I recommende d hearing protection . We also discussed other ways to potentiall y help reduce awareness of tinnitus including avoidance of caffeine, salty meals and NSAIDs. Sensorineu ral hearing loss of bilateral ears 387134633 H90.3 Audiologic al evaluation results: Right ear: Normal through 2 kHz sloping to a moderate sensorineu ral hearing loss with excellent word recognitio n. Left ear: Normal through 3 kHz sloping to a moderate sensorineu ral hearing loss with excellent word recognitio n. Tympanomet ry: Right Ear:Type A Left Ear:Type A [id number] Benjie TOMLINSON [facility] [address] [address] 05/08/2025 15:34:49 05/08/2025 15:35:57 Sensorineural hearing loss of bilateral ears 421057143 H90.3 Audiologic al evaluation results: Right ear: [...] ID Guarantor Name 05/08/2025 1 MEDICARE B-[place]: [employer] Kristy Li [id number] Kristy Li 05/08/2025 2 [place] [facility] Kristy Lucie Li [id number] Kristyraegan FishLi Notes Date Note Type Note Provider Name [...] discussed during the visit. GRISELDA MURDOCK MD [address] [place] [address], [place], [address], [facility] - [facility] 05/08/2025 16:36:29 05/08/2025 text/html Audiological Evaluation HPIReported by PatientHearing LossFor hearing loss perceived, patient reportshearing loss in both ears (no differences noted between ears). ARBEN BLAKE, AuD [address] [address], [place], [address], [facility] - [facility] 05/08/2025 15:35:56 OBGyn Episode No OBEpisode recorded.
--- OUTSIDE RECORDS SUMMARY | 2025-05-09 08:27 | XMS_ITS | Patient Health Record ---
Author Organization [facility] [address] Address [address] [place] [address] Care Team Providers Care Wet Process Operator Name Role Phone JOE COOLEY Primary Care Provider SADAF Son Unavailable [phone] Maddi Pérez Unavailable [phone] Allergies Allergen (clinical drug ingredient) Drug/Non Drug Allergy documented on EMR Reaction Allergy Type Onset Date Status acetaminophen / oxycodone Percocet Unknown Drug Allergy Active codeine Codeine Unknown Drug Allergy Active ibuprofen Ibuprofen Unknown Drug Allergy Active Results Component Value Reference Range Flag Notes HEMOGLOBIN A1C Reviewed date:03/12/2025 03:09:17 PM [...] Gap 7 3-11 Glucose 113 70-100 mg/dL H BUN 19 5-25 mg/dL Creatinine 0.69 0.50-1.10 mg/dL eGFR 102 >=60 mL/min/1.73m2 Calcul ation based on the Chronic Kidney Disease Epidemiology [...] Performing Lab: Notes/Report: Cholesterol 267 0-200 mg/dL H Results veri fied by repeat testing Triglycerides 145 0-150 mg/dL HDL 75 >=40 mg/dL LDL Calculated 163 0-100 mg/dL H Estimated LDL Calculated using equation: Total cholesterol - HDL cholesterol - (Triglycerides/5) VLDL Cholesterol Hollis 29 Non HDL Chol. (LDL+VLDL) 192 <145 mg/dL H Chol/HDL Ratio 3.6 0.0-4.4 CBC WITH AUTO [...] Date Status Potassium Chloride ER 10 MEQ Capsule Extended Release TAKE ONE CAPSULE TWICE DAILY Oral; Duration: 30 Days Active Calcium Carb-Cholecalciferol 600-10 MG-MCG Tablet TAKE ONE TABLET TWICE DAILY Oral; Duration: 90 Days Active Montelukast Sodium 10 MG Tablet Oral; Duration: 90 Days Active Nitrofurantoin Monohyd Macro 100 MG Capsule TAKE 1 CAPSULE TWICE A DAY FOR 7 DAYS Oral; Duration: 7 Days Active traZODone HCl 50 MG Tablet TAKE 1/2 TO 1 TABLET EVERY NIGHT AT BEDTIME NEEDED FOR SLEEP Oral; Duration: 30 Days Active Sucralfate 1 GM Tablet Oral; Duration: 3 0 Days Active Dupixent 300 MG/2ML Solution Auto-injector Subcutaneous; Duration: 28 Days Active Cetirizine HCl 10 MG Tablet TAKE ONE TABLET BY MOUTH TWICE DAILY Oral; Duration: 90 Days Active Albuterol Sulfate (2.5 MG/3ML) 0.083% Nebulization Solution PLEASE SEE ATTACHED FOR DETAILED DIRECTIONS Inhalation; Duration: 12 Days Active Atorvastatin Calcium 20 MG Tablet TAKE ONE TABLET DAILY Oral; Duration: 90 Days Active Trelegy Ellipta 100-62.5-25 MCG/ACT Aerosol Powder Breath Activated Inhalation; Duration: 30 Days Active Breztri Aerosphere 160-9-4.8 MCG/ACT Aerosol Inhalation; Duration: 30 Days Active Pantoprazole Sodium 40 MG Tablet Delayed Release TAKE ONE TABLET EVERY DAY Oral; Duration: 90 Days Active Zepbound 2.5 MG/0.5ML Solution Auto-injector INJECT 0.5 ML SUBCUTANEOUSLY WEEKLY; Duration: 30 Active hydroCHLOROthiazide 12.5 MG Capsule TAKE ONE CAPSULE DAILY Oral; Duration: 30 Days Active Trulance 3 MG Tablet Oral; Duration: 90 Days Active Cymbalta 30 MG Capsule Delayed Release Particles 1 capsule Orally Once a day twice daily Active Social History Tobacco Use: Social History Observation Description Date Details (start date - stop date) Never Smoker NA - NA Social History Drugs/Alcohol: Social Info Question Answer Notes Alcohol Screen (Audit-C) Did you have a drink containing alcohol in the past year? Yes How often did you have a drink containing alcohol in the past year? Monthly or less (1 point) Points 1 Interpretation Negative Drugs Have you used drugs other than those for medical reasons in the past 12 months? No Tobacco Use: Social Info Question Answer Notes Tobacco Use/Smoking Are you a nonsmoker Problems Problem Type SNOMED Code ICD Code Onset Dates Problem Status W/U Status Risk Notes Problem Obesity due to excess calories (282572459) Other obesity due to excess calories (E66.09) Active confirmed Problem Overweight (011191391) Overweight (E66.3) Active confirmed Problem Anxiety disorder (424723969) Anxiety disorder, unspecified (F41.9) Active confirmed Problem Fibromyalgia (120256584) Fibromyalgia (M79.7) Active confirmed Problem Essential hypertension (80191957) Essential hypertension (I10) Active confirmed Problem BMI 25-29 - overweight (335318994) Body mass index [BMI] 29.0-29.9, adult (Z68.29) Active confirmed Problem Body mass index 30.00 to 34.99 (567053269982927 ) Body mass index [BMI] 32.0-32.9, adult (Z68.32) Active confirmed Problem Body mass index 30.00 to 34.99 (866462495468025 ) BMI 31.0-31.9,adult (Z68.31) Active confirmed Problem Depression (266115127) Depression, unspecified (F32.A) Active confirmed Problem Obesity (987196614) Obesity (E66.9) Active confirmed Problem History of asthma (452217976) History of asthma (Z87.09) Active confirmed Vital Signs Heart Rate 71 /min 03/12/2025 Oximetry 99 % 03/12/2025 Blood pressure diastolic 80 mm Hg 03/12/2025 Height 59 in 03/12/2025 Blood pressure systolic 128 mm Hg 03/12/2025 Weight 155.4 lbs 03/12/2025 BMI 31.38 kg/m2 03/12/2025 Encounters Encounter Location Date Provider Diagnosis [facility] [address] [address] 05/09/2024 Maddi Pérez Overweight E66.3 ; B jessica mass index [BMI] 29.0-29.9, adult Z68.29 ; Essential hypertension I10 ; Anxiety disorder, unspecified F41.9 ; Depression, unspecified F32.A ; Fibromyalgia M79.7 and Weight loss counseling, encounter for Z71.3 [facility] [address] 06/13/2024 Maddi Svrcek Overweight E66.3 ; B MT 28.0-28.9,adult Z68.28 ; Essential hypertension I10 ; Anxiety disorder, unspecified F41.9 ; Depression, unspecified F32.A ; Fibromyalgia M79.7 and Weight loss counseling, encounter for Z71.3 [facility] [address] 03/12/2025 Maddi Svrcek Obesity E66.9 ; BMI 31.0-31.9,adult Z68.31 ; Essential hypertension I10 ; Anxiety disorder, unspecified F41.9 ; Depression, unspecified F32.A ; Fibromyalgia M79.7 and Weight loss counseling, encounter for Z71.3 [facility] [address] 05/09/2024 Maddi Svrcek [facility] [address] 05/31/2024 Maddi Svrcek [facility] [address] [place] [address] 03/06/2025 Maddi Svrcek [facility] [address] 03/08/2025 SADAF BORHOT [facility] [address] [place] [address] 03/11/2025 SADAF BORHOT [facility] [address] 03/12/2025 Maddi Svrcek Other obesity due to excess calories E66.[address] [facility] [address] [place] [address] 03/20/2025 SADAF BORHOT [facility] [address] 04/10/2025 Maddi Svrcek Assessments Encounter Date [...] Dictation was accomplished with the use of [employer] voice recognition software, prone to medical misidentifications [...] Dictation was accomplished with the use of [employer] voice recognition software, prone to medical misidentifications [...] Dictation was accomplished with the use of [employer] voice recognition software, prone to medical misidentifications [...] Dictation was accomplished with the use of [employer] voice recognition software, prone to medical misidentifications [...] Dictation was accomplished with the use of [employer] voice recognition software, prone to medical misidentifications [...] Dictation was accomplished with the use of [employer] voice recognition software, prone to medical misidentifications [...] Dictation was accomplished with the use of [employer] voice recognition software, prone to medical misidentifications [...] Dictation was accomplished with the use of [employer] voice recognition software, prone to medical misidentifications [...] day, calorie goal of 1200 to 1300 holils a day as well as regular exercise [...] Dictation was accomplished with the use of [employer] voice recognition software, prone to medical misidentifications [...] Dictation was accomplished with the use of [employer] voice recognition software, prone to medical misidentifications [...] Dictation was accomplished with the use of [employer] voice recognition software, prone to medical misidentifications [...] Dictation was accomplished with the use of [employer] voice recognition software, prone to medical misidentifications [...] Dictation was accomplished with the use of [employer] voice recognition software, prone to medical misidentifications [...] Dictation was accomplished with the use of [employer] voice recognition software, prone to medical misidentifications [...] Dictation was accomplished with the use of [employer] voice recognition software, prone to medical misidentifications [...] Dictation was accomplished with the use of [employer] voice recognition software, prone to medical misidentifications [...] Dictation was accomplished with the use of [employer] voice recognition software, prone to medical misidentifications [...] Dictation was accomplished with the use of [employer] voice recognition software, prone to medical misidentifications [...] Dictation was accomplished with the use of [employer] voice recognition software, prone to medical misidentifications [...] Dictation was accomplished with the use of [employer] voice recognition software, prone to medical misidentifications [...] Dictation was accomplished with the use of [employer] voice recognition software, prone to medical misidentifications [...] Insured Coverage Start Date Coverage End Date [facility] [address] [place] [address] [id number] Kristy Li Self - patient is the insured Medical (General) History Medical History History ICD Code seasonal allergies hypertension hypercholesterolemia asthma weight gain/loss gallbladder disease Arthritis heart murmur anxiety depression hearing loss Surgical History Surgery Date(Month/Year) cholecystectomy 11/28/23 biliary dyskinesia raised her bladder right TKR 12/2024
--- OUTSIDE RECORDS SUMMARY | 2025-05-09 08:28 | XMS_ITS | Encounter Summary ---
Author Organization [facility] Address [address] [place] [address] Care Team Providers Care Shop Coordinator Name Role Phone Tanja Larkin MD Primary Care Provider Encounter Details Date Type Department Care Team ([facility] st Contact Info) Description 04/05/2025 Telephone Internal Medicine - [address] [place] [address] Tanja Larkin MD [address] [place] [phone] Social History Tobacco Use Types Packs/Day Years [...] for your loved ones. For example, child protection specialist or elderly care for an older [...] documented in this encounter Progress Notes * Melania Barraza - 04/05/2025 2:24 PM EDT Patient called waiting on zepbound Unsure if sent to pharmacy for her documented in this encounter Plan of Treatment Upcoming Encounters Date Type Department Care Team (Late st Contact Info) Description 06/10/2025 9:00 AM EST Office Visit Pulmonology - [facility] [address] [place] [phone] Abhay Coppola MD [address] [place] [phone] 06/18/2025 8:40 AM EST Office Visit [facility] - [facility] [address] [facility] [address] [place] [phone] Marycarmen Georges NP [address] [place] [address] [place] [phone] 07/31/2025 8:50 AM EST Office Visit Gastroenterology - [address] [facility] [address] [place] [phone] Daphnie Almanza PA [address] [place] [address] 09/03/2025 9:45 AM EDT Office Visit Internal Medicine - [place] [address] [place] [phone] Tanja Larkin MD [address] [place] [phone] documented as of this encounter Visit Diagnoses Not on filedocumented in this encounter Additional Health Concerns Assessment Noted Time PHQ-9 Depression Total Score: 19 025 3:44 PM EST documented as of this encounter Care Teams Shop Coordinator Relationship Specialty Start Date End Date Tanja Larkin MD [address] [place] [phone] PCP - General Internal Medicine 05/04/24 documented as of this encounter
--- OUTSIDE RECORDS SUMMARY | 2025-05-09 08:28 | XMS_ITS | Encounter Summary ---
Author Organization [facility] Address [address] [place] [address] [address] Care [address] Monkey Name Role Phone Tanja Larkin MD Primary Care Provider [phone] Reason for Referral * Consultation (Routine) - Denied Specialty Diagnoses / Procedures Referred By Contac t Referred To Contact Family Nutrition Services / Bariatrics Diagnoses Obesity (BMI 30.0-34.9) Tanja Larkin MD [address] [address] Phone: tel: fax: Bariatric Surgery [facility] 175 [facility] 120 [place] [address] Phone: tel: fax: Referral ID Status Reason Start Date Expiration Date V isits Requested Visits Authorized [id number] Denied Specialty Services Required 04/16/2025 04/16/2026 1 0 Reason for Visit * Reason Onset Date Comments Medication Problem 04/15/2025 Zepbound not covered by insurance Encounter Details Date Type Department Care Team ([facility] st Contact Info) Description 04/15/2025 Telephone Internal Medicine [facility] [address] [address] Tanja Larkin MD [address] [place] [phone] Social History Tobacco Use Types Packs/Day [...] your loved ones. For example, child care counselor or elderly care for an older adult? [...] of Assessment Author No 08/21/2024 5:40 PM Harika Hernandez RN * Do you have serious [...] Progress Notes * Tanja Larkin MD - 04/16/2025 12:43 PM EDT Ref placed * Jenni Russo MA - 04/16/2025 11:01 AM EDT 04/16 Patient called back and I interested in weight management . * Jenni Russo MA - 04/16/2025 10:55 AM EDT 04/16 [facility] to return call regarding messages below. * Tanja Larkin MD - 04/15/2025 6:22 PM EDT Let me know if she is interested in seeing weight management * Zoë Olivares MA - 04/15/2025 3:38 PM EDT Pharmacy called in regards of medication Zepbound a message from my chart was send to you as well * Melania Barraza - 04/15/2025 3:19 PM EDT Medicare will not cover cost of zepbound Is their another medication that can be ordered fro her documented in this encounter Plan of Treatment Upcoming Encounters Date Type Department Care Team (Late st Contact Info) Description 06/10/2025 9:00 AM EST Office Visit Pulmonology - [place] 175 [facility] [address] [place] [address] Abhay Coppola MD [address] [place] [address] 06/18/2025 8:40 AM EST Office Visit [facility] - [facility] [address] 300 [facility] 154 [place] [phone] Marycarmen Georges NP [address] [place] [address] Dr Ja[address] [place] [address] 07/31/2025 8:50 AM EST Office Visit Gastroenterology - [facility] 299 [facility] [address] [place] [phone] Daphnie Almanza PA 299 [facility] [address] [place] [address] 09/03/2025 9:45 AM EDT Office Visit Internal Medicine - [place] 175 [facility] [address] [place] [phone] Tanja Larkin MD [address] [place] [phone] Scheduled Referrals Name Type Priority Associated Diagnoses Order Schedule Ambulatory referral to Weight Management Outpatient Referral Routine Obesity (BMI 30.0-34.9) 1 Occurrences starting 04/16/2025 until 04/16/2026 documented as of this encounter Visit Diagnoses Diagnosis Obesity (BMI 30.0-34.9)- Primary documented in this encounter Additional Health Concerns Assessment Noted Time PHQ-9 Depression Total Score: 19 08/29/ 025 3:44 PM EST documented as of this encounter Care Teams Road Monkey Relationship Specialty Start Date End Date Tanja Larkin MD 175 [facility] 200 [place] [phone] PCP - General Internal Medicine 05/04/24 documented as of this encounter
--- OUTSIDE RECORDS SUMMARY | 2025-05-09 08:28 | XMS_ITS | Encounter Summary ---
Author Organization [facility] Address [address] [place] [address] Care Team Providers Care Framing Machine Tender Name Role Phone Tanja Larkin MD Primary Care Provider [phone] Encounter Details Date Type Department Care Team ([facility] [place] Contact Info) Description 04/18/2025 Results Follow-Up Gastroenterology - [place] 175 [facility] 175 [facility] 200 [place] [phone] Danica Park MD 299 [facility] [address] [place] [address] Social History Tobacco Use Types Packs/Day Years [...] your loved ones. For example, child care development specialist or elderly care for an older [...] documented in this encounter Progress Notes * Danica Park MD - 04/18/2025 7:20 PM EDT Due to evidence of active gastritis on the biopsy, the patient needs H. pylori treatment with subsequent breath or stool antigen testing documented in this encounter Plan of Treatment Upcoming Encounters Date Type Department Care Team (Late st Contact Info) Description 06/10/2025 9:00 AM EST Office Visit Pulmonology - [place] 175 [facility] 200 [place] [phone] Abhay Coppola MD [address] [place] [phone] 06/18/2025 8:40 AM EST Office Visit [facility] - [facility] 154 300 [facility] 154 [place] [phone] Marycarmen Georges NP [address] [place] [address] [place] [phone] 07/31/2025 8:50 AM EST Office Visit Gastroenterology - [address] [place] [address] [facility] [address] [place] [phone] Daphnie Almanza PA [address] [facility] [address] [place] [address] 09/03/2025 9:45 AM EDT Office Visit Internal Medicine - [place] [address] [place] [phone] Tanja Larkin MD [address] [place] [phone] documented as of this encounter Visit Diagnoses Not on filedocumented in this encounter Additional Health Concerns Assessment Noted Time PHQ-9 Depression Total Score: 19 08/29/ 025 3:44 PM EST documented as of this encounter Care Teams Framing Machine Tender Relationship Specialty Start Date End Date Tanja Larkin MD 175 [facility] 200 [place] [phone] PCP - General Internal Medicine 05/04/24 documented as of this encounter
--- OUTSIDE RECORDS SUMMARY | 2025-05-09 08:28 | XMS_ITS | Encounter Summary ---
Author Organization [facility] [place] [address] Care Team Providers Care Conductor/Engineer Name Role Phone Tanja Larkin MD Primary Care Provider [phone] Encounter Details Date Type Department Care Team (Latest Contact Info) Description 10/29/2024 Lab Requisition [facility] 299 [facility] [place] [address] Yenni Sandoval MD 299 [facility] 215 [place] [phone] Encounter for gynecological examination (general) (routine) without [...] care for your loved ones. For example, teacher early childhood development or elderly care for an older adult? [...] 07/24/2024 Verbal Abuse Unrecognized value 07/24/2024 Comments Unknown Sex and Gender Information [...] 9:00 AM EST Office Visit Pulmonology - [place] 175 [facility] 200 [place] [phone] Abhay Coppola MD [address] [place] [phone] 06/18/2025 8:40 AM EST Office Visit [facility] - [facility] [address] [facility] [address] [place] [phone] Marycarmen Georges NP [address] [place] [address] Dr [address] [place] [address] 07/31/2025 8:50 AM EST Office Visit Gastroenterology - 299 [facility] 299 [facility] 419 [place] [phone] Daphnie Almanza PA 299 [facility] [address] [place] [address] 09/03/2025 9:45 AM EDT Office Visit Internal Medicine [facility] 175 [facility] 200 [place] [phone] Tanja Larkin MD [address] [place] [phone] documented as of this encounter Procedures Procedure [...] LAB MICROBIOLOGY METHOD 10/29/2024 3:[address] [facility] Brushing/Spatula Cervix uteri structure / Unknown 10/26/2024 10/29/2024 6:20 AM EDT us Yenni Sandoval MD LAB MOLECULAR DIAGNOSTIC S ORDERABLES Final Result [facility] [address] [place] [address], * Pap smear (10/26/2024 12:00 AM EDT) Interpretation Negative for intraepithelial lesion or malignancy 10/30/2024 9:[address] [facility] General Categorization Negative 10/30/2024 9:[address] [facility] Other Findings Atrophy 10/30/2024 9:00 AM EDT [facility] Specimen Adequacy Satisfactory for evaluation 10/30/2024 9:[address] [facility] Pap Methodology Liquid Based Pap Test 10/30/2024 9:[address] [facility] Disclaimer The Pap test is a screening test which carries an inherent false negative rate. These test results should be correlated with the patient's clinical findings and history. This Pap test was processed using an automated screening system. Technical cytopathology services provided by [facility], at [address] [place] [address] (CLIA # [id number]/Selene Sutherland MD, Labor Relations Or Personnel Negotiator.) 10/30/2024 9:00 AM EDT [facility] Console Pap Interpretation Reported 10/30/2024 9:00 AM EDT [facility] Brushing/Spatula Cervix uteri structure / Unknown 10/26/2024 10/29/2024 6:20 AM EDT us Yenni Sandoval MD LAB CYTOLOGY ORDERABLES Final Result [facility] [address] [place] [address], documented in this encounter Visit Diagnoses Diagnosis Encounter for gynecological examination (general) (routine) without abnormal findings documented in this encounter Additional Health Concerns Assessment Noted Time PHQ-9 Depression Total Score: 19 025 3:44 PM EST documented as of this encounter Care Teams Conductor/Engineer Relationship Specialty Start Date End Date Tanja Larkin MD 175 [facility] 200 [place] [phone] PCP - General Internal Medicine 05/04/24 documented as of this encounter
== END 2025-05-09 08:39 | disposition home or self-care (01) ==
PROVIDERS: PCP Internal Medicine; Visit Provider Internal Medicine Rheumatology
DX: I16.0 Hypertensive urgency (principal); M70.61 Trochanteric bursitis, right hip; M70.62 Trochanteric bursitis, left hip
CPT/HCPCS: 99213; G2211

== ENCOUNTER → 2025-05-09 08:16 | Outpatient (BNVA) | payer MEDICARE, MEDICAID, SELFPAY | PROVIDERS: PCP Internal Medicine; Visit Provider Internal Medicine Rheumatology | DX: I10 Essential (primary) hypertension (principal); R51.9 Headache, unspecified | CPT/HCPCS: 99212 ==

== ENCOUNTER 2025-05-09 08:45 | Outpatient (AMB) | payer MEDICARE, MEDICAID, SELFPAY ==
--- NOTE | 2025-05-09 08:59 | A.OFFPC_ITS ---
Vital Signs 05/09/25 09:02 05/09/25 09:43 Height 5 ft 1 in Weight 160 lb BMI 30.2 BP 133/65 120/96 H Blood Pressure Location Rt brachial Rt brachial Position Sitting Sitting Pulse 94 Pulse Source Pulse Oximeter Temp 97.9 F Temp Source Oral Pulse Oximetry (%) 95 Oxygen Delivery Method Room Air Comment Manual Intake Visit Reasons: EP - High BP Allergies aspirin (ASPIRIN) Allergy (Intermediate, Verified 05/09/25 08:20) STOMACH UPSET NSAIDS (Non-Steroidal Anti-Inflamma Allergy (Mild, Verified 05/09/25 08:20) Stomach Upset acetaminophen (Percocet) Allergy (Unknown, Verified 05/09/25 08:20) Unknown codeine (CODEINE) Adverse Reaction (Intermediate, Verified 05/09/25 08:20) STOMACH UPSET oxycodone (From PERCOCET) Adverse Reaction (Intermediate, Verified 05/09/25 08:20) STOMACH UPSET Lactose Allergy (Unknown, Uncoded 04/09/25 14:13) Unknown Medication List - Last Reconciled 05/09/25 by Sherine You MD albuterol sulfate 90 mcg/actuation 2 puffs inhalation Q6H PRN amitriptyline 50 mg PO BEDTIME ascorbic acid (vitamin C) 100 mg PO DAILY atorvastatin 20 mg PO DAILY benralizumab 30 mg subcut Q8W biotin 1 mg PO DAILY glhtrgcpsz-nebxdagx-tjfuhedcog 160-9-4.8 mcg/actuation 2 inhalations inhalation BID afgumkedkx-toltmsff-dcgjwbcsgz 160-9-4.8 mcg/actuation (Breztri Aerosphere) 2 inhalations inhalation BID cetirizine (All Day Allergy (cetirizine)) 10 mg PO BID duloxetine 60 mg PO BID famotidine 40 mg PO DAILY finger splint Silver Ring swan neck splints alliuywspfh-lnkjpkame-lfmlfwbw 100-62.5-25 mcg (Trelegy Ellipta) 1 inh inhalation DAILY hydrochlorothiazide 12.5 mg PO DAILY hydromorphone 2 - 4 mg PO Q6H PRN hydroxyzine HCl 25 mg PO BID liraglutide (weight loss) (Saxenda) mg subcut meclizine 25 mg PO TID PRN metformin 500 mg PO DAILY montelukast (Singulair) 10 mg PO DAILY multivitamin 1 tab PO DAILY omega-3 fatty acids 500 mg PO DAILY omeprazole 20 mg PO DAILY ondansetron HCl 4 mg PO DAILY PRN plecanatide (Trulance) 3 mg PO DAILY potassium chloride ER mEq PO BID pregabalin 225 mg PO BID sucralfate 1 g PO TID tizanidine mg PO trazodone 50 mg PO BEDTIME triamcinolone acetonide (Aller-Maverick) 2 sprays intranasal DAILY HPI HPI Comments History of Present Illness Details History of Present Illness The patient is a 55-year-old female With a past medical history of hypertension, chronic pain syndrome, vertigo, RAMOS, asthma, fibromyalgia who was sent from rheumatology for evaluation of markedly elevated blood pressure. - The patient was sent from her rheumato logy appointment today after she was noticed to have elevated blood pressures - She had taken her hydrochlorothiazide 12.5 mg daily about 30 minutes before the appointment. - Last month, she was sent to the emerge ncy room for a similar episode of markedly elevated blood pressure. - During the ER visit, patient reports s he was kept for observation until her blood pressure decreased without receiving additional medication. Unable to access ER records as outside of [facility]. - She sees a plug and mold finisher at [facility], for management of her blood pressure. - The patient has a blood pressure cuff at home but does not check her blood pressures regularly - The patient reports a current headache , localized bilaterally to her forehead. - She has a history of headaches related to cervical spine issues - She has not taken any medication for t he headache. - The patient reports feeling lightheade d and dizzy for the last few days. - She has a history of vertigo and aller gies, and she is unsure if these are co ntributing to her current symptoms. - She denies any chest pain, shortness o f breath, changes in vision, or focal weakness. Review of Systems Constitutional: Negative for fevers, chills HENT: Negative for ear pain, ear discharge Eyes: Negative for visual disturbance Respiratory: Negative for shortness of breath Cardiac: Negative for chest pain, palpitations Neurological: Reports headaches, lightheadeness and dizziness. Negative for, numbness, weakness Physical Exam General Appearance: Normal appearance, well developed. No acute distress Head: Normocephalic, atraumatic Eyes: PERRLA. EOM intact. No nystagmus ENT: External ears and ear canals within normal limits. TMs without erythema or bulging. Cardiovascular: RRR. No obvious M/G/R Pulmonary: No respiratory distress. Speaking in full sentences Musculoskeletal: Moving all extremities spontaneously and against gravity Neurological: CN 2-12 tested and intact. Strength in upper and lower extremities 5/5 Mental Status: Alert and Oriented x 3 Psychiatric: Normal mood. Normal affect. [facility] Medical History (Updated 05/09/25 @ 08:52 by Yuval Rodriguez MD) FH: cholecystectomy Osteoarthritis, hand Osteoarthritis of knees, bilateral Fibromyalgia Surgical History (Updated 04/22/25 @ 15:19 by Jody Belle SPECIAL SHOPPER) Hx of cholecystectomy History of total right knee replacement History of esophagogastroduodenoscopy (EGD) History of carpal tunnel release of both wrists Family History Father Stroke CVD (cardiovascular disease) Mother Gastritis Skin cancer Social History Household Members: Spouse Housing: House Are you a primary healthcare prof to a significant other at home: No Do you presently have visiting nurse or other home services: No 75 years or older and lives alone: No Alcohol intake: never Patient Tobacco Use Status: Never used Tobacco e-Cigarette/Vaping Use: Never Used service: No Current occupational status: disabled Physical exam (Primary Care) Vital Signs: Last Vital Signs Temp 97.9 F 05/09/25 09:02 Pulse 94 05/09/25 09:02 BP 120/96 H 05/09/25 09:43 Pulse Ox 95 05/09/25 09:02 Oxygen Delivery Method Room Air 05/09/25 09:02 BMI result Body Mass Index 30.2 Tobacco/Smoking Status: Tobacco use Status Patient Tobacco Use Status Never used Tobacco 05/09/25 09:01 e-Cigarette/Vaping Use Never Used 05/09/25 09:01 Office Meds acetaminophen 325 mg tablet Performing Provider: Sherine You MD Performing Location: [facility] Administered by: Sherine You MD on 05/09/25 09:28 Dose Route Admin Location Dispensed Lot Number Expiration Date ND Upkeep Mechanic 650 mg PO 650 mg [id number] 11/25/27 2911-8420-63 MAJOR PHAR BENIGNOU Coding Level of Care Code Est Pt Level 3 (77210) Diagnoses Elevated blood pressure reading with diagnosis of hypertension I10 Nonintractable headache, unspecified chronicity pattern, unspecified headache type R51.9 Headache type: unspecified Headache chronicity pattern: unspecified pattern Intractability: not intractable Assessment & Plan Assessment & Plan (1) Elevated blood pressure reading with diagnosis of hypertension: Code(s): I10 - Essential (primary) hypertension (2) Headache: Code(s): R51.9 - Headache, unspecified Qualifiers: Headache type: unspecified Headache chronicity pattern: unspecified pattern Intractability: not intractable Qualified Code(s): R51.9 - Headache, unspecified Plan - The patient presented after elevated blood pressures at her rheumatology appointment. - Her blood pressure at the walk-in was improved, possible due to her morning medication having taken effect. - The patient reports an intermittent headache and dizziness over the last few days. Given that her blood pressure is normal in the clinic, these symptoms are less likely to be a direct result of hypertension at this moment. The patient has a history of vertigo, which could be a contributing factor. - She was administered Tylenol 650 mg in the clinic for headache. Upon re- evaluation, patient reported improvement in the headache. She was advised to stay well hydrated. - EKG not currently available in our office. After shared decision making and as she currently denies any chest pain, palpitations, or shortness of breath with improvement in blood pressures at our office, held off on further evaluation for EKG elsewhere. - The patient is advised to check her blood pressure at home to ensure her medication is effective for the full 24 hours. - Advised follow up with PCP with BP log - She was advised on a low-salt diet and to avoid NSAIDs and gauv-zmf-lldihqg cold medicines with phenylephrine/pseudoephedrine. Strict return precautions were provided, including seeking emergency care for severe headache, chest pain, shortness of breath, vision changes, or significantly elevated blood pressures. Patient was informed and verbally consented to the use of an ambient scribe for clinic note documentation during the visit. Orders: Orders AMB Acetaminophen Adult Dose Today R51.9 - Headache, unspecified
[2025-05-09 09:02] VITALS: BP 133/65; PULSE 94; TEMP 36.6; O2SAT 95; BMI 30.2
[2025-05-09 09:43] VITALS: BP 120/96
== END 2025-05-09 10:38 | disposition home or self-care (01) ==
PROVIDERS: PCP Internal Medicine; Visit Provider Family Medicine
DX: I10 Essential (primary) hypertension (principal); R51.9 Headache, unspecified
CPT/HCPCS: 99213

== ENCOUNTER 2025-05-17 10:54 | Day surgery (SDC) | payer MEDICARE, MEDICAID, SELFPAY ==
--- OUTSIDE RECORDS SUMMARY | 2024-04-11 05:00 | XMS_ITS ---
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 Role Phone JOE COOLEY Primary Care Provider SADAF Son Unavailable [phone] Maddi Pérez Unavailable [phone] Medications Medication SIG (Take, Route, Frequency, Duration) Notes Start Date End Date Status Zepbound 2.5 MG/0.5ML 0.5 mL Subcutaneou s once weekly; Duration: 30 days Active Atorvastatin Calcium 20 MG TAKE ONE TABL ET DAILY Oral; Duration: 90 Days Active Pantoprazole Sodium 40 MG TAKE ONE TABLE T EVERY DAY Oral; Duration: 90 Days Active Cetirizine HCl 10 MG TAKE ONE TABLET BY MOUTH TWICE DAILY Oral; Duration: 90 Days Active Trelegy Ellipta 100-62.5-25 MCG/ACT Inhalation; Duration: 30 Days Active traZODone HCl 50 MG TAKE 1/2 TO 1 TABLET EVERY NIGHT AT BEDTIME NEEDED FOR SLEEP Oral; Duration: 30 Days Active Albuterol Sulfate (2.5 MG/3ML) 0.083% PLEASE SEE ATTACHED FOR DETAILED DIRECTIONS Inhalation; Duration: 12 Days Active Potassium Chloride ER 10 MEQ TAKE ONE CAPSULE TWICE DAILY Oral; Duration: 30 Days Active Sucralfate 1 GM Oral; Duration: 30 Days Active Montelukast Sodium 10 MG Oral; Duration: 90 Days Active hydroCHLOROthiazide 12.5 MG TAKE ONE CAP JAILENE DAILY Oral; Duration: 30 Days Active Cymbalta 30 MG 1 capsule Orally Once a day twice daily Active Sulfamethoxazole-Trimethopr im 800-160 MG Oral; Duration: 7 Days Active Encounters Encounter Location Date Provider Diagnosis [facility] [address] [address] 04/11/2024 Maddi Pérez Other obesity due to [...] and Eat Fat Get Lean by Dr Aawis Corbin. Self education is important in the [...] track activity level. Consider using apps like [employer], Hello Chairpal, lose it, stick as needed for self-monitoring and weight management. Consider group exercises. Consider hiring a personal lines sales rep. Regular exercise is mccurdy to sustainable health [...] counseling and psychiatry and Dr Iniguez at [facility]. We would like to cover regular topics [...] Dictation was accomplished with the use of InSample voice recognition software, prone to medical misidentifications [...] track activity level. Consider using apps like [employer], myfitnesspal, lose it, stick as needed for self-monitoring and weight management. Consider group exercises. Consider hiring a personal lines sales rep. Regular exercise is mccurdy to sustainable health [...] counseling and psychiatry and Dr Iniguez at [facility]. We would like to cover regular topics [...] Dictation was accomplished with the use of InSample voice recognition software, prone to medical misidentifications [...] track activity level. Consider using apps like [employer], HiphuntersfitSlate Realtypal, lose it, stick as needed for self-monitoring and weight management. Consider group exercises. Consider hiring a personal lines sales rep. Regular exercise is mccurdy to sustainable health [...] counseling and psychiatry and Dr Iniguez at [facility]. We would like to cover regular topics [...] Dictation was accomplished with the use of InSample voice recognition software, prone to medical misidentifications [...] track activity level. Consider using apps like [employer], Hello [employer], lose it, stick as needed for self-monitoring and weight management. Consider group exercises. Consider hiring a personal lines sales rep. Regular exercise is mccurdy to sustainable health [...] counseling and psychiatry and Dr Iniguez at [facility]. We would like to cover regular topics [...] Dictation was accomplished with the use of InSample voice recognition software, prone to medical misidentifications [...] track activity level. Consider using apps like [employer], myfitnesspal, lose it, stick as needed for self-monitoring and weight management. Consider group exercises. Consider hiring a personal lines sales rep. Regular exercise is mccurdy to sustainable health [...] counseling and psychiatry and Dr Iniguez at [facility]. We would like to cover regular topics [...] Dictation was accomplished with the use of InSample voice recognition software, prone to medical misidentifications [...] track activity level. Consider using apps like [employer], Hello [employer]pal, lose it, stick as needed for self-monitoring and weight management. Consider group exercises. Consider hiring a personal lines sales rep. Regular exercise is mccurdy to sustainable health [...] counseling and psychiatry and Dr Iniguez at [facility]. We would like to cover regular topics [...] Dictation was accomplished with the use of InSample voice recognition software, prone to medical misidentifications [...] track activity level. Consider using apps like [employer], Hello [employer], lose it, stick as needed for self-monitoring and weight management. Consider group exercises. Consider hiring a personal lines sales rep. Regular exercise is mccurdy to sustainable health [...] counseling and psychiatry and Dr Iniguez at [facility]. We would like to cover regular topics [...] Dictation was accomplished with the use of InSample voice recognition software, prone to medical misidentifications [...] track activity level. Consider using apps like [employer], Hello [employer], lose it, stick as needed for self-monitoring and weight management. Consider group exercises. Consider hiring a personal lines sales rep. Regular exercise is mccurdy to sustainable health [...] counseling and psychiatry and Dr Iniguez at [facility]. We would like to cover regular topics [...] Dictation was accomplished with the use of InSample voice recognition software, prone to medical misidentifications [...] Date Stop Date Notes Zepbound 2.5 MG/0.5ML 0.5 mL Subcutaneou s once weekly; Duration: 30 days Progress Notes * Zoë LI:1970 ( 55 yo F)Acc No.[id number]:04/11/2024 Patient: Kristy RAY Provider: Lucie Pérez PA-C :1970 A ge:54 Y S ex:Female Date:04/11/2024 Address:[address] [place], [place] [id number] Pcp:JOE COOLEY Subjective: * Chief Complaints: * * HPI: C onstitutional: Kristy is a [...] specialist- Dr. Umanzor Will be starting with licensed massage practitioner PMH: Asthma, fibromyalgia, depression, anxiety, lung granuloma, [...] 156, tg 178, hdl 56, ldl 65 [facility]- therapist. Ewa Morrison- gabby, currently on cymbalta 30 mg BID,. * ROS: A ll Other Systems: Review of Systems (ROS) A ll others negative except those mentioned in HPI. * Medical History: * Medications: T aking Cymbalta 30 MG Capsule Delayed Release Particles 1 capsule Orally Once a day , Notes to Pharmacist: twice daily, Taking Sulfamethoxazole-Trimethoprim 800-160 MG Tablet Oral , Taking hydroCHLOROthiazide 12.5 MG Capsule TAKE ONE CAPSULE DAILY Oral , Taking Montelukast Sodium 10 MG Tablet Oral , Taking Potassium Chloride ER 10 MEQ Capsule Extended Release TAKE ONE CAPSULE TWICE DAILY Oral , Taking Sucralfate 1 GM Tablet Oral , Taking traZODone HCl 50 MG Tablet TAKE 1/2 TO 1 TABLET EVERY NIGHT AT BEDTIME NEEDED FOR SLEEP Oral , Taking Albuterol Sulfate (2.5 MG/3ML) 0.083% Nebulization Solution PLEASE SEE ATTACHED FOR DETAILED DIRECTIONS Inhalation , Taking Cetirizine HCl 10 MG Tablet TAKE ONE TABLET BY MOUTH TWICE DAILY Oral , Taking Trelegy Ellipta 100-62.5-25 MCG/ACT Aerosol Powder Breath Activated Inhalation , Taking Atorvastatin Calcium 20 MG Tablet TAKE ONE TABLET DAILY Oral , Taking Pantoprazole Sodium 40 MG Tablet Delayed Release TAKE ONE TABLET EVERY DAY Oral , Taking Zepbound 2.5 MG/0.5ML Solution Auto-injector inject 2.5 mg Subcutaneous once weekly Objective: * Vitals: * Physical Examination: G eneral: Well appearing, [...] track activity level. Consider using apps like [employer], myfitnesspal, lose it, stick as needed for self-monitoring and weight management. Consider group exercises. Consider hiring a personal lines sales rep. Regular exercise is mccurdy to sustainable health [...] counseling and psychiatry and Dr Iniguez at [facility]. We would like to cover regular topics [...] Dictation was accomplished with the use of InSample voice recognition software, prone to medical misidentifications [...] Codes: 9 9199 NO SHOW OFFICE VISIT * Images: Billing Information: * Visit Code: * Procedure Codes: 52338 NO SHOW OFFICE VISIT. * Electronic signature of Maddi Pérez PA-C on 04/26/2025 at 02:21 PM EDT Sign off status: Pending * Provider: Lucie Pérez PA-C Date: Generated for Savi altamirano/Eric/Carlos Eduardo on: 02:21 PM EDT History and Physical Notes * HPI (History [...] specialist- Dr. Umanzor Will be starting with licensed massage practitioner PMH: Asthma, fibromyalgia, depression, anxiety, lung granuloma, [...] 156, tg 178, hdl 56, ldl 65 [facility]- therapist. Ewa pierre, currently on [...]
--- OUTSIDE RECORDS SUMMARY | 2024-06-05 05:30 | XMS_ITS ---
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 Role Phone JOE COOLEY Primary Care Provider UnavailSADAF Knox Unavailable [phone] Maddi Pérez Unavailable [phone] Encounters Encounter Location Date Provider Diagnosis [facility] [address] [address] 06/05/2024 Maddi Pérez Plan Of Treatment No Information Progress Notes * Kristy LIDOB:1970 ( 55 yo F)Acc No.[id number]:06/05/2024 Patient: Narinder BETANCOURTAmaya Kristy Provider: Lucie Pérez PA-C :1970 A ge:54 Y S ex:Female Date:06/05/2024 Address:[address] [place], [place] [id number] Pcp:JOE COOLEY Subjective: * Chief Complaints: * * Medical History: Objective: * Vitals: Assessment: Plan: * Treatment: * Images: Billing Information: * Visit Code: * Procedure Codes: * Electronic signature of Maddi Pérez PA-C on 04/26/2025 at 02:21 PM EDT Sign off status: Pending * Provider: Lucie Pérez PA-C Date: 08/06/2023 Generated for Savi altamirano/Eric/eTransmitting on: 02:21 PM EDT
--- OUTSIDE RECORDS SUMMARY | 2024-07-24 05:30 | XMS_ITS ---
Author Organization [facility] [address] Address [address] [place] [address] Care Team Providers Care Retail Sales Consultant Name Role Phone JOE COOLEY Primary Care Provider Unavailabl SADAF Varner Unavailable [phone] Maddi Pérez Unavailable [phone] Encounters Encounter Location Date Provider Diagnosis [facility] [address] [address] 07/24/2024 Maddi Pérez Plan Of Treatment No Information Progress Notes * Kristy LIDOB:1970 ( 55 yo F)Acc No.[id number]:07/24/2024 Patient: Narinder BETANCOURTNicky Kristy Provider: Lucie Pérez PA-C :1970 A ge:54 Y S ex:Female Date:07/24/2024 Address:[address] [place], [place] [phone] Pcp:JOE COOLEY Subjective: * Chief Complaints: * * Medical History: Objective: * Vitals: Assessment: Plan: * Treatment: * Images: Billing Information: * Visit Code: * Procedure Codes: * Electronic signature of Maddi Pérez PA-C on 04/26/2025 at 02:20 PM EDT Sign off status: Pending * Provider: Lucie Pérez PA-C Date: 0 07/24/2024 Generated for Savi altamirano/Faroshang/eTransmitting on: 1 02:20 PM EDT
--- OUTSIDE RECORDS SUMMARY | 2025-04-11 05:15 | XMS_ITS ---
Author Organization [facility] [address] Address [address] [place] [address] Care Team Providers Care Finishing Powder Press Operator Name Role Phone JOE COOLEY Primary Care Provider UnavailSADAF Knox Unavailable [phone] Maddi Pérez Unavailable [phone] Encounters Encounter Location Date Provider Diagnosis [facility] [address] [address] 04/11/2025 Maddi Pérez Plan Of Treatment No Information Progress Notes * Kristy LIDOB:1970 ( 55 yo F)Acc No.[id number]:04/11/2025 Patient: Narinder BETANCOURTAmaya Kristy Provider: Lucie Pérez PA-C :1970 A ge:55 Y S ex:Female Date:04/11/2025 Address:[address] [place], [place] [id number] Pcp:JOE COOLEY Subjective: * Chief Complaints: * * Medical History: Objective: * Vitals: Assessment: Plan: * Treatment: * Images: Billing Information: * Visit Code: * Procedure Codes: * Electronic signature of Maddi Pérez PA-C on 04/26/2025 at 02:20 PM EDT Sign off status: Pending * Provider: Lucie Pérez PA-C Date: Generated for Savi altamirano/Fakuldeep/eTransmitting on: 02:20 PM EDT
--- OUTSIDE RECORDS SUMMARY | 2025-04-21 23:59 | XMS_ITS | Continuity of Care Document ---
Author Organization [facility] [facility] Address Unknown Care Team Providers Care Media Relations Specialist Name Role Phone Chaya MUJICA, Tanja Trujillo Primary Care Physician [phone] [id number] Date(s): 03/11/25 - 04/21/[address] [address] Attending Physician: Indira Rothman MD Admitting Physician: Indira Rothman MD Referring Physician: Tanja Larkin MD Encounter Type: Pre Office Visit Allergies, Adverse Reactions, Alerts Substance Criticality Severity Reaction Reaction Severity Status aspirin 1 Active oxyCODONE N&V - Nausea and vomiting Active codeine 2 Active NSAIDs 3 Active 1GI Upset 2GI Upset 3GI Upset Medications acetaminophen 325 mg oral tablet 650 mg, By Mouth, Every 6 hours, Refills 0, Maintenance, 01/05/25 10:04:00 AM EDT, Partial fill uponpatient request if the prescription is for a schedule II opioid drug. Start Date: 01/05/25 Status: Ordered Medication Dispense Status: Completed Total Allowed Fills: 1 Fills Dispensed: 0 alendronate 70 mg oral tablet 1 tablet = 70 mg, By Mouth, Every week, # 12 tablet, 0 Refills, Maintenance, 12/19/24 10:47:00 AM EDT, Tablet, Partial fill upon patient request if the prescription is for a schedule II opioid drug. Start Date: 12/19/24 Status: Ordered Medication Dispense Status: Completed Quantity: 12.0 Unit: tablet Total Allowed Fills: 1 Fills Dispensed: 0 atorvastatin 20 mg oral tablet TAKE ONE TABLET DAILY Start Date: 03/01/24 Status: Ordered Medication Dispense Status: Completed Total Allowed Fills: 1 Fills Dispensed: 0 Breztri Aerosphere inhalation aerosol INHALE 2 PUFFS INTO THE LUNGS 2 TIMES DAILY FOR 30 DAYS. Start Date: 03/01/24 Status: Ordered Medication Dispense Status: Completed Total Allowed Fills: 1 Fills Dispensed: 0 calcium-vitamin D 600 mg-400 intl units oral tablet 1 tablet, By Mouth, 2 times a day, # 60 tablet, 0 Refills, Maintenance, 12/19/24 10:47:00 AM EDT, Tablet, Partial fill upon patient request if the prescription is for a schedule II opioid drug. Start Date: 12/19/24 Status: Ordered Medication Dispense Status: Completed Quantity: 60.0 Unit: tablet Total Allowed Fills: 1 Fills Dispensed: 0 Carafate 1 gm oral tablet 1 Gm, 1, tablet, By Mouth, 2 times a day, # 60 tablet, Refills 0, Maintenance, 08/27/20 1:35:00 PM EST, Partial fill upon patient request if the prescription is for a schedule II opioid drug. Start Date: 08/27/20 Status: Ordered Medication Dispense Status: Completed Quantity: 60.0 Unit: tablet Total Allowed Fills: 1 Fills Dispensed: 0 cetirizine 10 mg oral tablet TAKE ONE TABLET TWICE DAILY Start Date: 03/01/24 Status: Ordered Medication Dispense Status: Completed Total Allowed Fills: 1 Fills Dispensed: 0 cyclobenzaprine 10 mg oral tablet 10 mg, 1, tablet, By Mouth, 3 times a day, PRN, # 30 tablet, Refills 0, Maintenance, for spasm, 12/19/24 10:47:00 AM EDT, Partial fill upon patient request if the prescription is for a schedule II opioid drug. Start Date: 12/19/24 Status: Ordered Medication Dispense Status: Completed Quantity: 30.0 Unit: tablet Total Allowed Fills: 1 Fills Dispensed: 0 DilTIAZem (Eqv-Cardizem CD) 120 mg/24 hours oral capsule, extended release 0 Refills, Maintenance, 12/19/24 10:47:00 AM EDT, Partial fill upon patient request if the prescription is for a schedule II opioid drug. Start Date: 12/19/24 Status: Ordered Medication Dispense Status: Completed Total Allowed Fills: 1 Fills Dispensed: 0 docusate sodium 100 mg oral capsule 100 mg, 1, capsule, By Mouth, 2 times a day, # 60 capsule, Refills 0, Tot. Refills 0, Maintenance, 01/05/25 9:33:00 AM EDT, Route to Pharmacy Electronically, [facility], Partial fill upon patient request if the prescription is for a schedule II opioid drug., 150, cm, 01/05/25 6:13:00 ED T, Height, 72, kg, 01/04/25 10:42:00 EDT, Dry Weight Start Date: 01/05/25 Status: Ordered Medication Dispense Status: Completed Quantity: 60.0 Unit: capsule Total Allowed Fills: 1 Fills Dispensed: 0 DULoxetine 40 mg oral delayed release capsule TAKE ONE CAPSULE IN THE MORNING AND EVENING Start Date: 03/01/24 Status: Ordered Medication Dispense Status: Completed Total Allowed Fills: 1 Fills Dispensed: 0 Dupixent Pre-filled Pen 300 mg/2 mL subcutaneous solution = 600 mg, Subcutaneous Injection, every 2 weeks, Maintenance, 08/08/24 1:29:00 PM EST, Solution Start Date: 08/08/24 Status: Ordered Medication Dispense Status: Completed Total Allowed Fills: 1 Fills Dispensed: 0 Eliquis 2.5 mg oral tablet 1 tablet = 2.5 mg, By Mouth, 2 times a day, # 60 tablet, 0 Refills, Maintenance, 01/05/25 9:33:00 AMEDT, Tablet, [facility] 3, Partial fill upon patient request if the prescription is fora schedule II opioid drug., 150, cm, 01/05/25 6:13:00 EDT, Height, 72, kg, 01/04/25 10:42:00 EDT, Dry Weight Start Date: 01/05/25 Status: Ordered Medication Dispense Status: Completed Quantity: 60.0 Unit: tablet Total Allowed Fills: 1 Fills Dispensed: 0 hydrOXYzine hydrochloride 25 mg oral tablet TAKE ONE TABLET TWICE DAILY NEEDED FOR ANXIETY Start Date: 03/01/24 Status: Ordered Medication Dispense Status: Completed Total Allowed Fills: 1 Fills Dispensed: 0 ketotifen 0.025% ophthalmic solution 1 drops, Every 12 hours, 0 Refills, Maintenance, 01/04/25 6:07:00 AM EDT, Partial fill upon patient request if the prescription is for a schedule II opioid drug. Start Date: 01/04/25 Status: Ordered Medication Dispense Status: Completed Total Allowed Fills: 1 Fills Dispensed: 0 lidocaine 5% topical film Topically, Daily, 0 Refills, Maintenance, 03/29/25 9:16:00 AM EDT, Partial fill upon patient requestif the prescription is for a schedule II opioid drug. Start Date: 03/29/25 Status: Ordered Medication Dispense Status: Completed Total Allowed Fills: 1 Fills Dispensed: 0 magnesium oxide 400 mg oral tablet 1 tablet = 400 mg, By Mouth, Daily, # 10 tablet, 0 Refills, Maintenance, 12/19/24 10:47:00 AM EDT, Tablet, Partial fill upon patient request if the prescription is for a schedule II opioid drug. Start Date: 12/19/24 Stop Date: 12/29/24 Status: Ordered Medication Dispense Status: Completed Quantity: 10.0 Unit: tablet Total Allowed Fills: 1 Fills Dispensed: 0 Meclizine = 12.5 mg, By Mouth, 3 times a day, PRN Motion Sickness, 0 Refills, Maintenance, 08/22/20 1:19:00 PMEST, Partial fill upon patient request if the prescription is for a schedule II opioid drug. Start Date: 08/22/20 Status: Ordered Medication Dispense Status: Completed Total Allowed Fills: 1 Fills Dispensed: 0 MiraLax Powder 1 pack/packet = 17 Gm, By Mouth, Daily, PRN Constipation, 0 Refills, Maintenance, 01/05/25 10:04:00 AM EDT, Powder, Partial fill upon patient request if the prescription is for a schedule II opioid drug. Start Date: 01/05/25 Status: Ordered Medication Dispense Status: Completed Total Allowed Fills: 1 Fills Dispensed: 0 Nasacort 0 Refills, Maintenance, 08/27/20 1:35:00 PM EST, Partial fill upon patient request if the prescription is for a schedule II opioid drug. Start Date: 08/27/20 Status: Ordered Medication Dispense Status: Completed Total Allowed Fills: 1 Fills Dispensed: 0 pantoprazole 40 mg oral delayed release tablet TAKE ONE TABLET EVERY DAY Start Date: 03/01/24 Status: Ordered Medication Dispense Status: Completed Total Allowed Fills: 1 Fills Dispensed: 0 pregabalin 225 mg oral capsule TAKE ONE CAPSULE TWICE DAILY Start Date: 03/01/24 Status: Ordered Medication Dispense Status: Completed Total Allowed Fills: 1 Fills Dispensed: 0 Restasis 0.05% ophthalmic emulsion 0 Refills, Maintenance, 12/19/24 10:47:00 AM EDT, Partial fill upon patient request if the prescription is for a schedule II opioid drug. Start Date: 12/19/24 Status: Ordered Medication Dispense Status: Completed Total Allowed Fills: 1 Fills Dispensed: 0 senna 187 mg oral tablet 1 tablet = 8.6 mg, By Mouth, Daily at bedtime, PRN as needed for constipation, 0 Refills, Maintenance, 01/05/25 10:04:00 AM EDT, Tablet, Partial fill upon patient request if the prescription is for a schedule II opioid drug. Start Date: 01/05/25 Status: Ordered Medication Dispense Status: Completed Total Allowed Fills: 1 Fills Dispensed: 0 Singulair 10 mg oral tablet 10 mg, 1, tablet, By Mouth, Daily, Refills 0, Maintenance, 08/22/20 1:20:00 PM EST, Partial fill upon patient request if the prescription is for a schedule II opioid drug. Start Date: 08/22/20 Status: Ordered Medication Dispense Status: Completed Total Allowed Fills: 1 Fills Dispensed: 0 traZODone 50 mg oral tablet TAKE 1/2 TO 1 TABLET EVERY NIGHT AT BEDTIME NEEDED FOR SLEEP Start Date: 03/01/24 Status: Ordered Medication Dispense Status: Completed Total Allowed Fills: 1 Fills Dispensed: 0 Trulance 3 mg oral tablet 1 tablet = 3 mg, By Mouth, Daily, # 30 tablet, 0 Refills, Maintenance, 12/19/24 10:49:00 AM EDT, Tablet, Partial fill upon patient request if the prescription is for a schedule II opioid drug. Start Date: 12/19/24 Status: Ordered Medication Dispense Status: Completed Quantity: 30.0 Unit: tablet Total Allowed Fills: 1 Fills Dispensed: 0 Ventolin 90 mcg Inhaler 2, puffs, Inhalation, Every 4 hours, PRN, Refills 0, Maintenance, 08/22/20 1:21:00 PM EST, Inhaler Start Date: 08/22/20 Status: Ordered Medication Dispense Status: Completed Total Allowed Fills: 1 Fills Dispensed: 0 Vitamin C By Mouth, Daily, 0 Refills, Maintenance, 08/27/20 1:35:00 PM EST, Partial fill upon patient request if the prescription is for a schedule II opioid drug. Start Date: 08/27/20 Status: Ordered Medication Dispense Status: Completed Total Allowed Fills: 1 Fills Dispensed: 0 Vitamin D3 62.5 mcg (2500 intl units) oral capsule 1 capsule = 62.5 mcg, By Mouth, Daily, with a fatty meal, # 100 capsule, 0 Refills, Maintenance, 01/04/25 6:09:00 AM EDT, Capsule, Partial fill upon patient request if the prescription is for a schedule II opioid drug. Start Date: 01/04/25 Status: Ordered Medication Dispense Status: Completed Quantity: 100.0 Unit: capsule Total Allowed Fills: 1 Fills Dispensed: 0 Zepbound Pen 5 mg/0.5 mL subcutaneous solution = 5 mg, Subcutaneous Injection, Every week, rotate injection sites, # 2 mL, 0 Refills, Maintenance,12/19/24 10:47:00 AM EDT, Solution, Partial fill upon patient request if the prescription is for a schedule II opioid drug. Start Date: 12/19/24 Status: Ordered Medication Dispense Status: Completed Quantity: 2.0 Unit: mL Total Allowed Fills: 1 Fills Dispensed: 0 Zofran 4 mg oral tablet 1 tablet = 4 mg, By Mouth, Every 8 hours, PRN as needed for nausea/vomiting, 0 Refills, Maintenance, 08/22/20 1:20:00 PM EST, Tablet, Partial fill upon patient request if the prescription is for a schedule II opioid drug. Start Date: 08/22/20 Status: Ordered Medication Dispense Status: Completed Total Allowed Fills: 1 Fills Dispensed: 0 Problem List Condition Confirmation Course Effective Dates Status Health St atus Informant Asthma Confirmed Active Fibromyalgia Confirmed Active HTN (hypertension) Confirmed Active Obese class I Confirmed Active RAMOS on CPAP Confirmed Active Social History Social History Type Response Smoking Status Never (less than 100 in lifetime) entered on: 12/21/24 Sexual Orientation Self described orien tation: ; Straight or heterosexual Sex Sex Representation Female (finding) Patient Care team information Care Team Personnel Name: Chaya MUJICA, Tanja Trujillo Position: Reference Physician Member Role: PCP Address: [address] [place] [address], [address] [place] [address]- Telecom: Name: Marycarmen Redman Position: [facility] Outreach Member Role: Lifetime Consulting Physician Name: Shayla New RN Position: [facility] RN Member Role: Primary Care Nurse Name: Mai Pierre Position: [facility] Outreach Member Role: Lifetime Consulting Physician Care Team Related Persons Name: LUBNA LEGGETT Name: RL DUFFY Insurance Providers Guarantor name: [employer] Health Plan Information #: 1 Payer: BLUE CROSS O Payer Identifier: BROCK Member Number: [id number] Group Number: [id number] Subscriber Identifier: [id number] Relationship to Subscriber: spouse Coverage Type: NA Coverage Verification Date: NA Telecom: Address:
--- OUTSIDE RECORDS SUMMARY | 2025-04-26 14:20 | XMS_ITS | Encounter Summary ---
Author Organization [employer] Address 75 [facility] 7 [place] [address] Care Team Providers Care Caretaker Name Role Phone Unavailable Primary Care Provider Unavailabl e Reason for Visit * Reason Onset Date Comments referral for Oral Surgery 09/14/2024 Encounter Details Date Type Department Care Team (Late st Contact Info) Description 09/14/2024 Telephone [facility] ADULT D[facility] [address] [place] [address] Mert Giang [address] [place] [address] referral for Oral Surgery Social History Tobacco [...] encounter Miscellaneous Notes * Telephone Encounter - oLre Ordaz - 09/17/2024 1:01 PM EDT Message [...] referral and patient will come to pick pulling machine operator after having received call from front clerk that referral is ready. Patient questioned how soon it would be ready. I was explained to patient that I did not have an official timeframe, however office will reach out to her and she can pick pulling machine operator once it is ready. Patient is concerned [...] referral and patient will come to pick pulling machine operator after having received call from front clerk that referral is ready. Patient questioned how soon it would be ready. I was explained to patient that I did not have an official timeframe, however office will reach out to her and she can pick pulling machine operator once it is ready. Patient is concerned [...]
--- OUTSIDE RECORDS SUMMARY | 2025-04-26 14:20 | XMS_ITS | Encounter Summary ---
Author Organization [employer] Address 75 [facility] 7t [place] [address] Care Team Providers Care Biofuels Product Development Manager Name Role Phone Unavailable Primary Care Provider Unavailabl e Reason for Visit * Reason Comments Med Refill Encounter Details Date Type Department Care Team (Late st Contact Info) Description 04/10/2024 Refill [facility] ADULT DENTAL [address] [place] [address] Chet Wade DDS [address] [place] [address] Social History Tobacco Use Types Packs/Day Years [...]
--- OUTSIDE RECORDS SUMMARY | 2025-04-26 14:20 | XMS_ITS | Encounter Summary ---
Author Organization [employer] Address [address] [place] [address] 7t [place] [address] Care Team Providers Care Mechanical Artist Name Role Phone Unavailable Primary Care Provider Unavailabl e Reason for Visit * Reason Comments Med Refill Encounter Details Date Type Department Care Team (Late st Contact Info) Description 05/31/2024 Refill [facility] ADULT DENTAL [address] [place] [address] Chet Wade DDS [address] [place] [address] Social History Tobacco Use Types Packs/Day Years [...]
--- OUTSIDE RECORDS SUMMARY | 2025-04-26 14:20 | XMS_ITS | Clinical Summary ---
Author Organization [employer] Address [address] [place] [address] 7t [place] [address] Care Team Providers Care Vacuum Spindle Sander Name Role Phone Unavailable Primary Care Provider [...] TABLET FOUR TIMES DAILY Active nystatin (Mycostatin) 067655 UNIT/ML suspension Take 4 mL by mouth [...] Most Recently Relevant to Health Maintenance Insurance [employer] [facility]
--- OUTSIDE RECORDS SUMMARY | 2025-04-26 14:21 | XMS_ITS | Encounter Summary ---
Author Organization [employer] Address 75 [facility] 7t [place] [address] Care Team Providers Care Buckler And Lacer Name Role Phone Sudarshan Hdz MD Primary [...] on filedocumented in this encounter Care Teams Buckler And Lacer Relationship Specialty Start Date End Date Sudarshan Hdz MD [address] [place] [address] PCP - General Internal Medicine 11/27/19 06/30/23 documented as of this encounter
--- OUTSIDE RECORDS SUMMARY | 2025-04-26 14:21 | XMS_ITS | Encounter Summary ---
Author Organization [facility] Address [address] [place] [address] 7t [place] [address] Care Team Providers Care Science Faculty Member Name Role Phone Unavailable Primary Care Provider Unavailabl e Reason for Visit * Reason Onset Date Comments Extraction 03/22/2024 Encounter Details Date Type Department Care Team (Late st Contact Info) Description 03/22/2024 Telephone [facility] DENTAL [address] [place] [address] Lopez Gill BDNicky [address] [place] [address] Extraction Social History Tobacco Use Types Packs/Day [...]
--- OUTSIDE RECORDS SUMMARY | 2025-04-26 14:21 | XMS_ITS | Data Portability ---
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 Continue current regimen. Follow-up in March for audiometric testing as planned [email or web address] Not available 01/14/2025 09:36:01 Plan of Treatment Reminders Order Date Submit Date Provider Last Modified By Organization Details Last Modified Time Details Appointments Hearing Test 2024 03:00P M Hearing Test Not available Not available Not available FOLLOW UP 30 2024 03:30P M GRISELDA CERDA MD Not available Not available Not available Lab None recorde d. Referral None recorde d. Procedures None recorde d. Surgeries None recorde d. Imaging CT, sinuses , w/o contras t 2024 0[facility] [place] [address], [address], 01/14/2025 09:36:36 CT, maxillo facial, w/o contras t 2024 025 [email or web address] [facility], [address] [place] [address], [phone], 11/20/2024 09:39:17 Medication Orders None recorde d. Patient TargetsNo targets recorded. Patient Instructions Encounter Date Encounter Id Patient Instructions Last Modified By Organization Details Last Modified Time 11/13/2024 [id number] Patient with history of allergic rhinitis and asthma presently on Dupixent injections for asthma control. No history of nasal polyps. She does have a history of ibuprofen sensitivity but mostly GI related not anaphylaxis or asthma. She is concerned about the possibility of having a septal deviation causing sinus infections and nasal obstruction. Examination shows the septum to be relatively straight with inferior turbinate hypertrophy. Nasal endoscopy is normal except for a left paradoxical middle turbinate. Suggest CT scan of the sinuses [email or web address] Not available 11/13/2024 11:34:22 Reason for Referral None Reported. Results Created Date Observation Date Name Description Value Unit Range Abnormal Flag Note LastModifiedBy Organization Detail LastModifiedTime 04/25/20 24 audio gram No observ ation record ed. [email or web address] Not Available 03/29 10:55:50 01/15/[address], sinus es, w/o contr ast No observ ation record ed. [email or web address] En[facility] Of [address], [address], 01/14/2025 09:33:25 02/10/20 25 01/14/2025 CT, sinus es, w/o contr ast No observ ation record ed. [email or web address] [facility] Of [address], [address], 02/10/2025 14:06:55 Result Notes None recorded. Problems Name Problem SNOMED Code Status Onset Date Resolution Date Notes Provider Name and Address Organization Details Recorded Time Allergic rhinitis 63280242 Active 2014 Allergic rhinitis: Due to other allergen; Note: Date Diagnosed : 08/21/2014 11:43 AM (477.8) GRISELDA MICHAELS MD [address] [place] [address], [place], [address] , [facility] - [facility] 5 11:33:28 Allergic rhinitis caused by pollen 44642660 Active 2015 Allergic rhinitis: Pollinosi s; CMS Risk: low risk [facility] Treatment : new problem (to examiner) : no additiona l workup planned N ote: Date Diagnosed : 07/09/2014 11:57 AM (477.0) ; Start Date : 5 Allergi c rhinitis due to pollen; Note: Date Diagnosed : 08/15/2015 1:47 PM (J30.1) Not Available [facility] 4 02:31:33 Headache 85514464 Active 2015 Headache; Note: Date Diagnosed : 10/06/2015 9:13 AM (R51) Not Available [facility] 4 02:31:17 Snoring 88153303 Active 2015 Snoring; Note: Date Diagnosed : 10/06/2015 9:13 AM (R06.83) Not Available [facility] 4 02:31:32 Chronic rhinitis 26535034 Active 2015 Chronic rhinitis; Note: Date Diagnosed : 11/17/2015 4:40 PM (J31.0) Not Available [facility] 4 02:31:20 Fatigue 75532578 Active 2015 Other fatigue; Note: Date Diagnosed : 11/17/2015 4:18 PM (R53.83) Not Available [facility] 4 02:31:36 Obstructi ve sleep apnea syndrome 25372421 Active 2015 Obstructi ve sleep apnea (adult) (pediatri c); Note: Date Diagnosed : 11/17/2015 4:16 PM (G47.33) Not Available [facility] 4 02:31:24 Sensorine ural hearing loss of bilateral ears 249376866 Active 2016 Sensorine ural hearing loss, bilateral ; Note: Date Diagnosed : 7 4:34 PM (H90.3) Not Available [facility] 4 02:31:30 Mild intermitt ent asthma 583092526 Active 2016 Mild intermitt ent asthma, uncomplic ated; Note: Date Diagnosed : 7 4:21 PM (J45.20) Not Available [facility] 4 02:31:16 Abnormal auditory perceptio n 87884310 Active 2016 Other abnormal auditory perceptio ns, bilateral ; Note: Date Diagnosed : 7 4:21 PM (H93.293) Not Available [facility] 4 02:31:32 Bilateral tinnitus 44406682724 02 Active 2016 Tinnitus, bilateral ; Note: Date Diagnosed : 7 4:21 PM (H93.13) Not Available [facility] 4 02:31:26 Bilateral earache 913879277 Active 2019 Otalgia, bilateral ; Note: Date Diagnosed : 08/28/2019 3:36 PM (H92.03) Not Available [facility] 4 02:31:28 Nasal congestio n 72125457 Active 2019 Nasal congestio n; Note: Date Diagnosed : 08/28/2019 3:37 PM (R09.81) Not Available [facility] 4 02:31:26 Bilateral temporoma ndibular joint pain 25283985190 319767 Active 2019 Arthralgi a of bilateral temporoma ndibular joint; Note: Date Diagnosed : 08/28/2019 3:36 PM (M26.623) Not Available [facility] 4 02:31:23 Recurrent acute sinusitis 554809619 Active 2020 Other acute recurrent sinusitis ; Note: Date Diagnosed : 09/01/2020 2:42 PM (J01.81) GRISELDA MICHAELS MD [address] [place] [address], [place], [address] , [facility] - [facility] 5 11:33:21 Chronic sinusitis 50515590 Active 2023 GRISELDA MICHAELS MD [address], [place], [address] , [facility] - [facility] 4 10:30:30 Moderate persisten t asthma 685930038 Active 2023 GRISELDA MICHAELS MD [address], [place], [address] , [facility] - [facility] 4 10:30:36 Hypertrop hy of nasal turbinate s 61083670 Active 2024 GRISELDA MICHAELS MD [address], [place], [address] , [facility] 5 11:33:32 Problem Notes None recorded. Procedures Surgical History Date Name Laterality Status Provider Name and Address Organization Details Recorded Time 5 JMSNasal/Sinus Endoscopy completed GRISELDA MURDOCK MD [address] [place] [address], [place], [address], [facility] 11/13/2024 11:21:20 4 Comp Audio with Tymps - 96761 & 40956 completed BENJIE SOTO [address] [place] [address], [place], [address], [facility] 04/25/2024 09:42:50 Imaging Results None recorded. Procedure Notes None recorded. Medical Equipment None Reported. Allergies Allergen ID Allergen Name Allergen Category Reaction Reaction Severity Criticality Documentation Date Start Date Code Code System Note Provider Name and Address Organization Details Recorded Time 36438 ibuprofen medicatio n other Not available Not available 11/08/2023 5640 RxNorm React ion: unkno wn, unspe cifie d;; Not Available [facility] 4 01:01:11 51122 codeine sulfate medicatio n other Not available Not available 11/08/2023 52469 RxNorm React ion: unkno wn, unspe cifie d;; Not Available [facility] 4 01:01:20 34041 acetamino phen / oxycodone medicatio n other Not available Not available 11/08/2023 28957 3 RxNorm React ion: unkno wn, unspe cifie d;; Not Available [facility] 4 01:01:23 Medications Name Sig Start Date Stop Date Status Note LastModified by Organization Details LastModified Time cyclobenz aprine 10 mg tablet TAKE ONE TABLET BY MOUTH AT BEDTIME NEEDED active Not Available Not Available No t Available amoxicill in 500 mg capsule TAKE 1 CAPSULE BY MOUTH 3 TIMES PER DAY FOR 7 DAYS 11/13 completed Not Available Not Available Not Available clotrimaz ole 10 mg jeronimo DISSOLVE ONE jeronimo BY MOUTH FIVE TIMES DAILY 04/25 completed Not Available Not [...] doxycycli ne hyclate 100 mg capsule TAKE 1 CAPSULE BY MOUTH TWICE A DAY FOR 20 DAYS 11/13 completed Not Available Not Available Not Available atorvasta tin 20 mg tablet TAKE ONE TABLET DAILY active Not Available Not Available No t Available albuterol sulfate 2.5 mg/3 mL (0.083 %) solution for nebulizat ion USE ONE AMPULE USING A NEBULIZE R EVERY 4 HOURS NEEDED FOR WHEEZING OR SHORTNES S OF BREATH active Not Available Not Available No t Available trazodone 50 mg tablet TAKE 1/2 TO 1 TABLET BY MOUTH AT BEDTIME NEEDED FOR SLEEP active Not Available Not Available No t Available cetirizin e 10 mg tablet TAKE ONE TABLET BY MOUTH TWICE DAILY active Not Available Not Available No t Available oxybutyni n chloride ER 10 mg tablet,ex tended release 24 hr TAKE ONE TABLET AT BEDTIME 04/25 completed Not Available Not Available Not Available azithromy darwin 250 mg tablet TAKE TWO TABLETS ON DAY ONE THEN TAKE ONE TABLET DAILY DAYS TWO through 10 active Not Available Not Available No t Available senna 8.6 mg tablet TAKE ONE [...] HCl 4 mg tablet TAKE ONE TABLET ONCE DAILY NEEDED active Not Available Not Available No t Available prednison e 20 mg tablet TAKE TWO TABLETS ONCE DAILY FOR FOUR DAYS THEN ONE TABLET DAILY FOR FOUR DAYS THEN THEN ONE-HALF TABLET DAILY FOR FOUR DAYS active Not Available Not Available No t Available alendrona te 70 mg tablet TAKE 1 TABLET ONCE A WEEK WITH 6 TO 8 OZ OF WATER 30 MINUTES BEFORE FIRST FOOD OF THE DAY. DO NOT LIE DOWN FOR 30 MINUTES. active Not Available Not Available No t Available dexametha sone 6 mg tablet TAKE [...] Not Available tramadol 50 mg tablet TAKE 1 TO 2 TABLETS BY MOUTH EVERY 6 HOURS NEEDED FOR MILD PAIN. DO NOT EXCEED 8 TABLETS (400MG) PER DAY. active Not Available Not Available No t Available Sudogest 30 mg tablet TAKE TWO TABLETS (60mg's) BY MOUTH EVERY 6 HOURS NEEDED FOR CONGESTI ON FOR UP TO 14 DAYS active Not Available Not Available No t Available pantopraz ole 20 mg tablet,de layed release TAKE ONE TABLET DAILY 04/25 completed Not Available Not Available Not Available hydromorp mirta 2 mg tablet TAKE 1 TO 2 TABLETS BY MOUTH EVERY 4 HOURS NEEDED FOR SEVERE PAIN active Not Available Not Available No t Available prednisol one acetate 1 % eye drops,[facility] LOCATION : BOTH EYES. INSTILL ONE DROP INTO BOTH EYES 4 TIMES A DAY FOR 10 DAYS active Not Available Not Available No t Available magnesium oxide 400 mg (241.3 mg magnesium ) tablet TAKE ONE TABLET AT BEDTIME active Not Available Not Available No t Available methocarb aydee 750 mg tablet TAKE ONE TABLET THREE TIMES DAILY NEEDED FOR PAIN active Not Available Not Available No t Available meclizine 25 mg tablet TAKE ONE TABLET EVERY 8 HOURS NEEDED active Not Available Not Available No t Available doxycycli ne monohydra te 100 mg capsule TAKE ONE CAPSULE TWICE DAILY FOR 14 DAYS active Not Available Not Available No t Available pantopraz ole 40 mg tablet,de layed release TAKE ONE TABLET TWICE DAILY active Not Available Not Available No t Available triamcino lone acetonide 55 mcg nasal spray aerosol USE TWO SPRAYS IN EACH NOSTRIL TWICE DAILY active Not Available Not Available No t Available hydrochlo rothiazid e 12.5 mg capsule TAKE ONE CAPSULE BY MOUTH EVERY DAY active Not Available Not Available No t Available diltiazem CD 120 mg capsule,e xtended release 24 hr TAKE ONE CAPSULE DAILY active Not Available Not Available No t Available monteluka st 10 mg tablet TAKE ONE TABLET BY MOUTH AT BEDTIME active Not Available Not Available No t Available hydroxyzi ne HCl 25 mg tablet TAKE ONE TABLET BY MOUTH TWICE DAILY NEEDED FOR ANXIETY active Not Available Not Available No t Available bisacodyl 5 mg tablet,de layed release TAKE TWO TABLETS right BEFORE beginnin g BOWEL prep active Not Available Not Available No t Available azelastin e 137 mcg (0.1 %) nasal spray Inhale 2 spray into both nostrils twice a day as directed 10/11 completed Medicati on ID: [id number] P rescribe d By Name: RUBI Silverio nd Name: azelasti ne Send Method: E-Prescr ibed Sub s Allowed: subs OK Medic ationGen ericName : azelasti ne Not Available Not Available Not Available Nasonex 50 mcg/actua tion [place] 2 spray into both nostrils 10/11 completed Medicati on ID: [id number] D uration Value: 90 Prescri bed By Name: RUBI Chery nd Name: Nasonex Send Method: E-Prescr ibed Sub s Allowed: subs OK Medic ationGen ericName : Nasonex Not Available Not Available Not Available ipratropi um bromide 42 mcg (0.06 %) nasal spray USE TWO SPRAYS IN EACH NOSTRIL TWICE DAILY active Not Available Not Available No t Available hydroxyzi ne HCl 10 mg tablet TAKE 1 TABLET BY MOUTH FOUR TIMES A DAY NEEDED FOR ITCHING active Not Available Not Available No t [...] Not Available Not Available No t Available Restasis 0.05 % eye drops in a dropperet te INSTILL 1 DROP INTO BOTH EYES TWICE A DAY active Not Available Not Available No [...] Available chlorhexi dine gluconate 0.12 % mouthwash SWISH 15ML BY ORAL MUCOSA TWICE A DAY FOR 10 DAYS. SPIT/ DO NOT SWALLOW active Not Available Not Available No t Available calcium 600 mg (as carbonate )-vitamin D3 10 mcg (400 unit) tablet TAKE ONE TABLET TWICE DAILY active Not Available Not Available No t Available peg 3350-elec trolytes 236 gram-22.7 4 gram-6.74 gram-5.86 gram solution MIX DIRECTED AND STARTING AT 6PM THE NIGHT BEFORE PROCEDUR E DRINK 8 OZ AT OWN PACE UNTIL ONE-HALF GALLON DONE. FINISH 2ND ONE-HALF 5 LATER active Not Available Not Available No t Available Flovent Diskus 50 mcg/actua tion powder for inhalatio n 02/22 completed Medicati on ID: [id number] Marcelino hopper By Name: Heydi Mann nd Name: Renan Send Method: E-Prescr ibed Sub s Allowed: [...] nasal spray 11/16 completed Medicati on ID: [id number] Pr escribed By Name: Heydi Mcgraw rd, nd Name: Astepro Send Method: E-Prescr ibed Sub s Allowed: subs OK Speci al Instruct ion: 2 sprays intranas al bid Medi cationGe nericNam e: Astepro Not Available Not Available Not Available Eliquis 2.5 mg tablet TAKE 1 TABLET BY MOUTH TWO TIMES A DAY active Not Available Not Available No t Available Flonase Allergy Relief 50 mcg/actua tion nasal spray,evaristo pension 2 puff into both nostrils 2019 active Medicati on ID: [id number] D uration Value: 30 Prescri bed By Name: RUBI Chery nd Name: Flonase Allergy Relief S end Method: E-Prescr ibed Sub s Allowed: subs OK Medic ationGen ericName : Flonase Allergy Relief Not Available Not Available Not Available duloxetin e 40 mg capsule,d elayed release TAKE ONE CAPSULE IN THE MORNING AND EVENING active Not Available Not Available No t Available Trulance 3 mg tablet TAKE 1 TABLET BY MOUTH 1 TIME EACH DAY. active Not Available Not Available No t [...] 5 mg/0.5 mL subcutane ous pen injector INJECT 0.5 ML (5 MG TOTAL) UNDER THE SKIN EVERY 7 DAYS active Not Available Not Available No t Available Zepbound 2.5 mg/0.5 mL subcutane ous pen injector INJECT 2.5 MG SUBCUTAN EOUS ONCE WEEKLY 30 DAYS 04/25 completed Not Available Not Available Not Available Vitals Date Recorded Body height Body mass index (BMI) Body weight Provider Name and Address Organization Details Last Updated DateTime 11/13/2024 149.86 cm 29.9 kg/m2 60504.67 g Anca Lewis [place] - [facility] 11/13/2024 11:00:31 Social History None recorded. Functional Status None [...] Diagnosis SNOMED-CT Code Diagnosis ICD10 Code Diagnosis IMO Codes Diagnosis Note [id number] GRISELDA MICHAELS MD [facility] [address] [address] 04/25/2024 09:11:31 04/25/2024 10:34:58 Bilateral tinnitus 4015365869 102 H93.13 Sensorineu ral hearing loss of bilateral ears 854218820 H90.3 Audiologic al evaluation results: Right ear: Normal through 2 kHz sloping to a moderate sensorineu ral hearing loss with excellent word recognitio n. Left ear: Normal through 3 kHz sloping to a moderate sensorineu ral hearing loss with excellent word recognitio n. Tympanomet ry: Right Ear:Type A Left Ear:Type A Chronic sinusitis 850419 00 J32.9 Moderate p ersistent asthma 331863663 J45.40 [id number] GRISELDA MICHAELS MD [facility] [address] [address] 11/13/2024 10:34:14 11/13/2024 11:41:51 Recurrent acute sinusitis 384602862 J01.81 [id number] Allergic rhinitis 523222 04 J30.9 7014767 Hypertroph y of nasal turbinates 18829561 J34.3 287712 Chronic sinusitis 350581 00 J32.9 [id number] GRISELDA MICHAELS MD [facility] [address] [place] [address] 01/14/2025 08:59:25 01/14/2025 09:36:36 Chronic rhinitis 56091096 J31.0 Health Concerns Section Related Observation LastModified by Organization Detai ls LastModified Time None Recorded Concern Status LastModified by Organization Details LastModified Time None Recorded Advance Directives Directive None Recorded Payers Insurance Date Sequence Insurance Name Policy Number Policy Redman Covered Member ID Redman Member ID Guarantor Name 01/14/2025 1 GRIS (PPO) [id number] Edwin Li [id number] Kristy Li Notes Date Note Type Note Provider Name and Address Organization Details Recorded Time 04/25/2024 text/html ROS as noted in the HPI Patient with known hearing loss presents for follow-up. She feels her hearing has gotten a little worse and she has bilateral tinnitus. Reports being diagnosed with a couple of ear infections in the last year. She has also been diagnosed with fibromyalgia. Dentist noted TMJ and suggested PTHas some sinus congestion. She is on montelukast, triamcinolone and Dupixent for asthma. GRISELDA MURDOCK MD [address] [place] [address], [phone], [facility] - [facility] 04/25/2024 10:32:04 11/13/2024 text/html ROS as noted in the HPI Hx of [place]--was using Nasacort. Reports multiple abx for sinus infections since last visitFeel nose irritated with sprays she has been treated with multiple antibiotics, cetirizine with pseudoephedrine and Nasacort. She has also tried montelukast and ipratropium bromide she is also used saline spray/irrigations and azelastine. Presently on Duipixent for asthma. Ibuprofen causes GI distress, not asthma GRISELDA MURDOCK MD [address] [place] [address],[place] [address], [place], [address], [place] - [facility] 11/13/2024 11:35:32 01/14/2025 text/html Follow-up for concerns of chronic right send possible sinusitis. Overall doing well. She still has occasional headache. History of allergy and migraine GRISELDA MURDOCK MD [address] [place] [address], [phone], [place] - [facility] 01/14/2025 09:36:08 OBGyn Episode No OBEpisode recorded.
--- OUTSIDE RECORDS SUMMARY | 2025-04-26 14:21 | XMS_ITS | Encounter Summary ---
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
--- OUTSIDE RECORDS SUMMARY | 2025-04-26 14:21 | XMS_ITS | Patient Health Record ---
Author Organization [facility] [address] Address [address] [place] [address] Care Team Providers Care Drier Take Off Tender Name Role Phone JOE COOLEY Primary Care Provider SADAF Son Unavailable [phone] Maddi Pérez Unavailable [phone] Allergies Allergen (clinical drug ingredient) Drug/Non Drug [...] Performing Lab: Notes/Report: TSH 1.41 0.40-4.00 mcIU/mL COMPREHENSIVE METABOLIC PANE L Reviewed date:03/12/2025 01:56:31 [...] 3.2-5.0 g/dL Total Bilirubin 0.3 0.0-1.4 mg/dL LIPID PANEL WITH REFLEX TO D IRECT [...] K/mcL Immature Granulocytes Absolute 0.02 0.00-0.03 K/mcL Reason For Referral No Information Medications Medication [...] Notes Problem Obesity due to excess calories (960249982) Other obesity due to excess calories (E66.09) Active confirmed Problem Overweight (357345033) Overweight (E66.3) Active confirmed Problem Anxiety disorder (586332714) Anxiety disorder, unspecified (F41.9) Active confirmed Problem Fibromyalgia (445435691) Fibromyalgia (M79.7) Active confirmed Problem Essential hypertension (09524449) Essential hypertension (I10) Active confirmed Problem BMI 25-29 - overweight (410870755) Body mass index [BMI] 29.0-29.9, adult (Z68.29) Active confirmed Problem Body mass index 30.00 to 34.99 (615741549457488 ) Body mass index [BMI] 32.0-32.9, adult (Z68.32) Active confirmed Problem Body mass index 30.00 to 34.99 (074086043062895 ) BMI 31.0-31.9,adult (Z68.31) Active confirmed Problem Depression (415713196) Depression, unspecified (F32.A) Active confirmed Problem Obesity (079259642) Obesity (E66.9) Active confirmed Problem History of asthma (931474320) History of asthma (Z87.09) Active confirmed Vital Signs Heart Rate 71 /min 03/12/2025 Oximetry 99 % 03/12/2025 Blood pressure diastolic 80 mm Hg 03/12/2025 Height 59 in 03/12/2025 Blood pressure systolic 128 mm Hg 03/12/2025 Weight 155.4 lbs 03/12/2025 BMI 31.38 kg/m2 03/12/2025 Encounters Encounter Location Date Provider Diagnosis [facility] [address] [address] 05/09/2024 Maddi Svrcek Overweight E66.3 ; B jessica mass index [BMI] 29.0-29.9, adult Z68.29 ; Essential hypertension I10 ; Anxiety disorder, unspecified F41.9 ; Depression, unspecified F32.A ; Fibromyalgia M79.7 and Weight loss counseling, encounter for Z71.3 [facility] [address] [address] 06/13/2024 Maddi Svrcek Overweight E66.3 ; B IL 28.0-28.9,adult Z68.28 ; Essential hypertension I10 ; Anxiety disorder, unspecified F41.9 ; Depression, unspecified F32.A ; Fibromyalgia M79.7 and Weight loss counseling, encounter for Z71.3 [facility] [address] [address] 03/12/2025 Maddi Svrcek Obesity E66.9 ; BMI 31.0-31.9,adult Z68.31 ; Essential hypertension I10 ; Anxiety disorder, unspecified F41.9 ; Depression, unspecified F32.A ; Fibromyalgia M79.7 and Weight loss counseling, encounter for Z71.3 [facility] [address] [address] 05/09/2024 Maddi Svrcek [facility] [address] [address] 05/31/2024 Maddi Svrcek [facility] [address] [place] [address] 03/06/2025 Maddi Svrcek [facility] [address] 03/08/2025 SADAF BORHOT [facility] [address] [place] [address] 03/11/2025 SADAF BORHOT [facility] [address] [address] 03/12/2025 Maddi Svrcek Other obesity due to excess calories E66.[address] [facility] [address] [place] [address] 03/20/2025 SADAF BORHOT [facility] [address] 04/10/2025 Maddi Svrcek Assessments Encounter Date Diagnosis (ICD Code) Assessment Notes Treatment Notes Treatment Clinical Notes Section Notes 05/09/2024 Overweight (ICD-10 - E66.3) #Obesity. 05/09/24: [...] Dictation was accomplished with the use of Jam[employer] Java voice recognition software, prone to medical misidentifications [...] Dictation was accomplished with the use of [employer] Java voice recognition software, prone to medical misidentifications [...] Dictation was accomplished with the use of [employer] voice recognition software, prone to medical misidentifications [...] Dictation was accomplished with the use of [employer] voice recognition software, prone to medical misidentifications [...] Dictation was accomplished with the use of [employer] voice recognition software, prone to medical misidentifications [...] Dictation was accomplished with the use of [employer] voice recognition software, prone to medical misidentifications [...] Dictation was accomplished with the use of [employer] voice recognition software, prone to medical misidentifications [...] Dictation was accomplished with the use of [employer] Java voice recognition software, prone to medical misidentifications [...] Dictation was accomplished with the use of [employer] voice recognition software, prone to medical misidentifications [...] Dictation was accomplished with the use of [employer] voice recognition software, prone to medical misidentifications [...] Dictation was accomplished with the use of [employer] Java voice recognition software, prone to medical misidentifications [...] Anxiety disorder, unspecified (ICD-10 - F41.9) #Obesity. 12/18/24: 143 pounds, BMI 28.9. She is doing [...] Dictation was accomplished with the use of [employer] Java voice recognition software, prone to medical misidentifications [...] Dictation was accomplished with the use of [employer] voice recognition software, prone to medical misidentifications [...] Dictation was accomplished with the use of [employer] voice recognition software, prone to medical misidentifications [...] Dictation was accomplished with the use of [employer] voice recognition software, prone to medical misidentifications [...] Dictation was accomplished with the use of [employer] voice recognition software, prone to medical misidentifications [...] Dictation was accomplished with the use of [employer] voice recognition software, prone to medical misidentifications [...] Dictation was accomplished with the use of [employer] voice recognition software, prone to medical misidentifications [...] Dictation was accomplished with the use of [employer] voice recognition software, prone to medical misidentifications [...] Dictation was accomplished with the use of [employer] voice recognition software, prone to medical misidentifications [...] Dictation was accomplished with the use of [employer] voice recognition software, prone to medical misidentifications [...] A1c 03/12/2025 TSH W/REFLEX TO FT4 03/12/2025 Insurance Providers Payer Name Payer Address Payer Phone Subscriber Number Group Number Insured Name Patient Relationship to Insured Coverage Start Date Coverage End Date [facility] [address] [place] [address] [id number] Kristy Li Self - patient is the insured Medical (General) History Medical History History ICD Code seasonal allergies hypertension hypercholesterolemia asthma weight gain/loss gallbladder disease Arthritis heart murmur anxiety depression hearing loss Surgical History Surgery Date(Month/Year) cholecystectomy 11/28/23 biliary dyskinesia raised her bladder right TKR 12/2024
--- OUTSIDE RECORDS SUMMARY | 2025-04-26 14:21 | XMS_ITS | Clinical Summary ---
Author Organization [facility] Address [address] [place] [address] Phone Care Team Providers Care Microstrategy Architect Name Role Phone Carlos Gonsales MD Primary Care Provider [phone] Social History Tobacco Use Types Packs/Day Years [...] Medical Devices Not on file Insurance [employer] OUT STATE PPO OUT [facility] PPO OUT [facility] PPO BLUE [place] OUT OF STATE PPO [facility] OUT OF STATE PPO [facility] OUT OF STATE PPO OUT [facility] [place] [address] [place] [address] PPO [employer] OUT OF STATE PPO Care Teams Microstrategy Architect Relationship Specialty Start Date End Date Carlos Gonsales MD [address] [place] [address] PCP - General Internal Medicine 08/14/21 Additional Source Comments The information contained in this document represents components of the legal health record. It is not the complete legal health record.[facility]
--- NOTE | 2025-05-14 11:34 | HO.ANESPROP2 ---
Documented by User: Kaley Beltran NP 05/14/25 11:44 HPI - Anesthesia Eval Consult details Narrative: 55 yr old female for Diagnostic C3-C4-C5 Medial Branch Block s/p upper EGD 02/2025 at [facility] with MAC Asthma: follows with bonding agent Anesthesia Pre-Procedure Meds Is the patient on any of the following meds?: GLP1/DPP4 PMFSH Active Problems Active Problems: All Active Problems Hypertensive urgency (Acute) Chronic pain syndrome (Acute) Cervical spondylosis (Acute) Cervical disc disease (Acute) Vertigo (Acute) Hip pain, bilateral (Acute) Greater trochanteric bursitis of both hips (Acute) Chondromalacia patellae of right knee (Acute) Right rotator cuff tendinitis (Acute) Hyperlipidemia (Acute) RAMOS (obstructive sleep apnea) (Acute) Shoulder pain, right (Acute) Asthma (Acute) Osteoarthritis, hand (Acute) Osteoarthritis of knees, bilateral (Acute) Fibromyalgia (Acute) Past Medical History Medical History (Updated 05/09/25 @ 08:52 by Yuval Rodriguez MD) FH: cholecystectomy Osteoarthritis, hand Osteoarthritis of knees, bilateral Fibromyalgia Family History Family History Father Stroke CVD (cardiovascular disease) Mother Gastritis Skin cancer Surgical History Surgical History (Updated 04/22/25 @ 15:19 by Jody Belle OCCUPATIONAL THERAPIST) Hx of cholecystectomy History of total right knee replacement History of esophagogastroduodenoscopy (EGD) History of carpal tunnel release of both wrists Social History Social History Household Members: Spouse Housing: House Are you a primary customer care assistant to a significant other at home: No Do you presently have visiting nurse or other home services: No Alcohol intake: never Patient Tobacco Use Status: Never used Tobacco e-Cigarette/Vaping Use: Never Used Second Hand Smoke Exposure: No Use of substances other than those prescribed or required for medical reasons: No Have you been hit, kicked, punched, or otherwise hurt by someone within the past year? If so, by whom?: No Are you DNR?: No Advance Directives: No Advance Directives Information Provided: Yes Advance Directives on File: No Patient : No : No service: No Current occupational status: disabled Meds Allergies Allergy/AdvReac Type Severity Reaction Status Date / Time aspirin (ASPIRIN) Allergy Intermediate STOMACH Verified 05/09/25 08:20 UPSET NSAIDS (Non-Steroidal Allergy Mild Stomach Verified 05/09/25 08:20 Anti-Inflamma Upset acetaminophen (Percocet) Allergy Unknown Unknown Verified 05/09/25 08:20 codeine (CODEINE) AdvReac Intermediate STOMACH Verified 05/09/25 08:20 UPSET oxycodone (From PERCOCET) AdvReac Intermediate STOMACH Verified 05/09/25 08:20 UPSET Lactose Allergy Unknown Unknown Uncoded 04/09/25 14:13 Home Medications ?Medication ?Instructions ?Recorded ?Confirmed ?Last Taken ?Type albuterol sulfate 90 mcg/actuation 2 puff inhalation Q6H PRN 10/26/21 05/15/25 Unknown History aerosol inhaler Shortness Of Breath Or Wheezing amitriptyline 50 mg tablet 50 mg PO BEDTIME 10/26/21 05/15/25 Unknown History ascorbic acid (vitamin C) 100 mg 100 mg PO DAILY 10/26/21 05/15/25 Unknown History tablet benralizumab 30 mg/mL subcutaneous 30 mg subcut Q8W 10/26/21 05/15/25 Unknown History auto-injector biotin 1 mg capsule 1 mg PO DAILY 10/26/21 05/15/25 Unknown History cetirizine 10 mg capsule (All Day 10 mg PO BID 10/26/21 05/15/25 Unknown History Allergy (cetirizine)) fluticasone fur. 100 mcg-umeclid 1 inh inhalation DAILY 10/26/21 05/15/25 Unknown History 62.5 mcg-vilant 25 mcg inhalat.powder (Trelegy Ellipta) meclizine 25 mg tablet 25 mg PO TID PRN Dizziness 10/26/21 05/15/25 Unknown History montelukast 10 mg tablet 10 mg PO DAILY 10/26/21 05/15/25 Unknown History (Singulair) multivitamin 1 tab PO DAILY 10/26/21 05/15/25 Unknown History omega-3 fatty acids 500 mg capsule 500 mg PO DAILY 10/26/21 05/15/25 Unknown History omeprazole 20 mg capsule,delayed 20 mg PO DAILY 10/26/21 05/15/25 Unknown History release sucralfate 1 gram tablet 1 g PO TID 10/26/21 05/15/25 Unknown History triamcinolone acetonide 55 mcg 2 spray intranasal DAILY 10/26/21 05/15/25 Unknown History nasal spray aerosol (Aller-Maverick) famotidine 40 mg tablet 40 mg PO DAILY 05/03/22 05/15/25 Unknown History liraglutide (weight loss) 3 mg/0.5 3 mg subcut QWEEK 05/03/22 05/15/25 Unknown History mL (18 mg/3 mL) subcut pen injector (Saxenda) metformin 500 mg tablet 500 mg PO DAILY 05/03/22 05/15/25 Unknown History hydrochlorothiazide 12.5 mg capsule 12.5 mg PO DAILY 10/30/24 05/15/25 Unknown History hydroxyzine HCl 25 mg tablet 25 mg PO BID 10/30/24 05/15/25 Unknown History potassium chloride 10 mEq 10 meq PO BID 10/30/24 05/15/25 Unknown History capsule,extended release trazodone 50 mg tablet 50 mg PO BEDTIME 10/30/24 05/15/25 Unknown History budesonide 160 mcg-glycopyr 9 2 inh inhalation BID 02/05/25 05/15/25 Unknown History mcg-formot 4.8 mcg/actuation HFA inhaler hydromorphone 2 mg tablet 2 - 4 mg PO Q6H PRN pain 02/13/25 05/15/25 Unknown History tizanidine 2 mg tablet 2 mg PO DAILY 02/13/25 05/15/25 Unknown History ondansetron HCl 4 mg tablet 4 mg PO DAILY PRN Nausea And 04/09/25 05/15/25 Unknown History Vomiting duloxetine 40 mg capsule,delayed 60 mg PO BID 04/22/25 05/15/25 Unknown History release atorvastatin 20 mg tablet 20 mg PO DAILY 05/09/25 05/15/25 Unknown History budesonide 160 mcg-glycopyr 9 2 inh inhalation BID 05/09/25 05/15/25 Unknown History mcg-formot 4.8 mcg/actuation HFA inhaler (Breztri Aerosphere) plecanatide 3 mg tablet (Trulance) 3 mg PO DAILY 05/09/25 05/15/25 Unknown History Exam Narrative Narrative: ECHO 01/2025 Left Ventricle Left ventricle cavity size is normal. Wall thickness is normal. Systolic function is normal with an ejection fraction of 60-65%. There are no regional LV wall motion abnormalities. There is no diastolic dysfunction. Left Atrium Left atrium cavity size is normal. Right Ventricle Right ventricle cavity appears normal. Systolic function is normal. Right Atrium Right atrium cavity is normal. Aortic Valve The aortic valve is trileaflet. The leaflets are mildly thickened and exhibit normal excursion. There is no regurgitation or stenosis. Mitral Valve The leaflets are mildly thickened. 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 There is mild regurgitation with a posteriorly directed jet. There is no significant stenosis noted. Tricuspid Valve Tricuspid valve structure is normal. There is trace regurgitation. Tricuspid regurgitation is inadequate for estimation of right ventricular systolic pressure. There is no significant tricuspid valve stenosis. Pulmonic Valve The pulmonic valve was not well visualized. No significant pulmonic valve regurgitation. No significant pulmonary valve stenosis noted. Aorta The aorta appears normal in size. IVC/SVC Inferior vena cava structure is normal. RA pressures is estimated to be 3 mmHg (IVC diameter <21 mm and decreases >50% during inspiration). Pericardium Pericardium appears normal. There is no pericardial effusion. Documented by User: Braulio Orozco MD 05/17/25 13:25 [facility] Past Medical History Medical History (Updated 05/09/25 @ 08:52 by Yuval Rodriguez MD) FH: cholecystectomy Osteoarthritis, hand Osteoarthritis of knees, bilateral Fibromyalgia Family History Family History Father Stroke CVD (cardiovascular disease) Mother Gastritis Skin cancer Family history of problems with anesthesia: No Surgical History Surgical History (Updated 04/22/25 @ 15:19 by Jody Belle CMA) Hx of cholecystectomy History of total right knee replacement History of esophagogastroduodenoscopy (EGD) History of carpal tunnel release of both wrists History of Problems with Anesthesia: No Social History Social History Household Members: Spouse Housing: House Are you a primary customer care assistant to a significant other at home: No Do you presently have visiting nurse or other home services: No Alcohol intake: never Patient Tobacco Use Status: Never used Tobacco e-Cigarette/Vaping Use: Never Used Second Hand Smoke Exposure: No Use of substances other than those prescribed or required for medical reasons: No Have you been hit, kicked, punched, or otherwise hurt by someone within the past year? If so, by whom?: No Are you DNR?: No Advance Directives: No Advance Directives Information Provided: Yes Advance Directives on File: No Patient : No : No service: No Current occupational status: disabled Meds Allergies Allergy/AdvReac Type Severity Reaction Status Date / Time aspirin (ASPIRIN) Allergy Intermediate STOMACH Verified 05/09/25 08:20 UPSET NSAIDS (Non-Steroidal Allergy Mild Stomach Verified 05/09/25 08:20 Anti-Inflamma Upset acetaminophen (Percocet) Allergy Unknown Unknown Verified 05/09/25 08:20 codeine (CODEINE) AdvReac Intermediate STOMACH Verified 05/09/25 08:20 UPSET oxycodone (From PERCOCET) AdvReac Intermediate STOMACH Verified 05/09/25 08:20 UPSET Lactose Allergy Unknown Unknown Uncoded 04/09/25 14:13 Home Medications ?Medication ?Instructions ?Recorded ?Confirmed ?Last Taken ?Type albuterol sulfate 90 mcg/actuation 2 puff inhalation Q6H PRN 10/26/21 05/15/25 Unknown History aerosol inhaler Shortness Of Breath Or Wheezing amitriptyline 50 mg tablet 50 mg PO BEDTIME 10/26/21 05/15/25 Unknown History ascorbic acid (vitamin C) 100 mg 100 mg PO DAILY 10/26/21 05/15/25 Unknown History tablet benralizumab 30 mg/mL subcutaneous 30 mg subcut Q8W 10/26/21 05/15/25 Unknown History auto-injector biotin 1 mg capsule 1 mg PO DAILY 10/26/21 05/15/25 Unknown History cetirizine 10 mg capsule (All Day 10 mg PO BID 10/26/21 05/15/25 Unknown History Allergy (cetirizine)) fluticasone fur. 100 mcg-umeclid 1 inh inhalation DAILY 10/26/21 05/15/25 Unknown History 62.5 mcg-vilant 25 mcg inhalat.powder (Trelegy Ellipta) meclizine 25 mg tablet 25 mg PO TID PRN Dizziness 10/26/21 05/15/25 Unknown History montelukast 10 mg tablet 10 mg PO DAILY 10/26/21 05/15/25 Unknown History (Singulair) multivitamin 1 tab PO DAILY 10/26/21 05/15/25 Unknown History omega-3 fatty acids 500 mg capsule 500 mg PO DAILY 10/26/21 05/15/25 Unknown History omeprazole 20 mg capsule,delayed 20 mg PO DAILY 10/26/21 05/15/25 Unknown History release sucralfate 1 gram tablet 1 g PO TID 10/26/21 05/15/25 Unknown History triamcinolone acetonide 55 mcg 2 spray intranasal DAILY 10/26/21 05/15/25 Unknown History nasal spray aerosol (Aller-Maverick) famotidine 40 mg tablet 40 mg PO DAILY 05/03/22 05/15/25 Unknown History liraglutide (weight loss) 3 mg/0.5 3 mg subcut QWEEK 05/03/22 05/15/25 Unknown History mL (18 mg/3 mL) subcut pen injector (Saxenda) metformin 500 mg tablet 500 mg PO DAILY 05/03/22 05/15/25 Unknown History hydrochlorothiazide 12.5 mg capsule 12.5 mg PO DAILY 10/30/24 05/15/25 Unknown History hydroxyzine HCl 25 mg tablet 25 mg PO BID 10/30/24 05/15/25 Unknown History potassium chloride 10 mEq 10 meq PO BID 10/30/24 05/15/25 Unknown History capsule,extended release trazodone 50 mg tablet 50 mg PO BEDTIME 10/30/24 05/15/25 Unknown History budesonide 160 mcg-glycopyr 9 2 inh inhalation BID 02/05/25 05/15/25 Unknown History mcg-formot 4.8 mcg/actuation HFA inhaler hydromorphone 2 mg tablet 2 - 4 mg PO Q6H PRN pain 02/13/25 05/15/25 Unknown History tizanidine 2 mg tablet 2 mg PO DAILY 02/13/25 05/15/25 Unknown History ondansetron HCl 4 mg tablet 4 mg PO DAILY PRN Nausea And 04/09/25 05/15/25 Unknown History Vomiting duloxetine 40 mg capsule,delayed 60 mg PO BID 04/22/25 05/15/25 Unknown History release atorvastatin 20 mg tablet 20 mg PO DAILY 05/09/25 05/15/25 Unknown History budesonide 160 mcg-glycopyr 9 2 inh inhalation BID 05/09/25 05/15/25 Unknown History mcg-formot 4.8 mcg/actuation HFA inhaler (Breztri Aerosphere) plecanatide 3 mg tablet (Trulance) 3 mg PO DAILY 05/09/25 05/15/25 Unknown History Exam Airway Mallampati Class: II TM Dist: <=3cm Neck ROM: Full Loose/Missing/Broken Teeth: No Lungs: ok Other: ok Assessment and Plan Assessment Anesthesia Assessment: Anesthesia Plan Discussed and Chart Reviewed Final Anesthetic Review Family History of Problems with Anesthesia: No History of Problems with Anesthesia: No NPO: Yes ASA Class: II Final Preanesthetic Review: No Changes in Pt Med Stat, Meds/Allgs Chart Reviewed, Consent Obtained/Reviewed and Anes Risks/Benef Reviewed Patient Risk: Intermediate Procedure Risk: Intermediate Anesthetic Plan Anesthetic Plan: MAC: and Agree w/ Assess. and Plan Disposition: Standard PACU
[2025-05-15 14:19] VITALS: BMI 27.6
--- NOTE | ~2025-05-17 | FL_ITS ---
EXAMINATION: FL GUIDANCE ONLY HISTORY: DX C3 C4 C5 MBB COMPARISON: None available. TECHNIQUE: Fluoroscopy time: 45 seconds. Cumulative Dose: 6.10 mGy. DAP: 265.27 uGym2 Images: 8. FINDINGS: Fluoroscopic spot films of the cervical spine demonstrate needles and contrast in place at multiple levels bilaterally. FL/FL guidance in OR IMPRESSION: Fluoroscopy during procedure. Please see procedure report for additional information. Electronically signed by: Remigio Velazquez MD 05/17/2025 02:37 PM EST
[2025-05-17 11:59] VITALS: BP 121/76; PULSE 98; RESP 16; TEMP 36.4; O2SAT 96
[2025-05-17] MEDS: Lactated Ringers 1,000 ML 100 ML IVCONT (12:07)
--- NOTE | 2025-05-17 13:09 | MHC.SHP ---
Pre-Procedural Eval Section A - 24 Hr Update-Section A only Date of Service: 05/17/25 The patient is an INPATIENT: No Changes since office visit: Yes Patient answered all questions The patient has been examined within 24 hours of the surgical procedure. The History & Physical has been completed within 30 days and I have reviewed it.: No Section B - Complete if H&P > 30 days Chief Complaint: Spondylosis without myelopathy or radiculopathy, Details of Present Illness: As above Relevant Family History (Specify if Yes): No Relevant Social History: None Present Medications: None Medical History: No relevant PMH History of Previous Operations: No relevant previous surgery Allergies: Allergies Allergy/AdvReac Type Severity Reaction Status Date / Time aspirin (ASPIRIN) Allergy Intermediate STOMACH Verified 05/09/25 08:20 UPSET NSAIDS (Non-Steroidal Allergy Mild Stomach Verified 05/09/25 08:20 Anti-Inflamma Upset acetaminophen (Percocet) Allergy Unknown Unknown Verified 05/09/25 08:20 codeine (CODEINE) AdvReac Intermediate STOMACH Verified 05/09/25 08:20 UPSET oxycodone (From PERCOCET) AdvReac Intermediate STOMACH Verified 05/09/25 08:20 UPSET Lactose Allergy Unknown Unknown Uncoded 04/09/25 14:13 Review of Systems Sugical H&P ROS: Negative: Constitution, Cardiovascular, Respiratory, Neurological, Psychiatric, Hem-Onc, Allergic/Immunologic, Gastrointestinal, Genitourinary, Musculoskeletal, Integumentary, Endocrine and Eyes/Ears/Nose/Throat Exam Surgical H&P Exam: Normal: HEENT, Normal: Heart, Normal: Lungs, Normal: Extremities, Normal: Abdomen, Normal: Skin and Normal: Neurological Plan I have reviewed the history and physical and performed a pertinent physical examination on my patient. No changes have occurred unless specified. I am going to perform diagnostic medial branch block C3, C4, C5 bilateral. Time Spent With Patient Time: Total time managing care of this patient today ____ minutes.
--- NOTE | 2025-05-17 14:00 | PM.OP ---
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 Surgeon: Azeem Bo MD Anesthesia: MAC Was an Plasterer Journeyman used for this Procedure?: No Estimated blood loss (mL): 0 Pathology: none sent Condition: stable Disposition: PACU
--- NOTE | 2025-05-17 14:01 | P.OP_ITS ---
Operative Note Operative Note Date of Service: 05/17/25 Narrative: Diagnostic medial branch block C3-C4 C5 bilateral. ? ?Informed consent was explained to the patient. All questions were explained and? answered.? The patient was taken inside the operating room where she was p ositioned prone on the operating table. Time-out was performed delineating correct site, side, the nature of the procedure, patient's allergy, . All operating room staff was participating in OR time-out procedure. ASA monitors were applied and patient was minimally sedated. ? ? The the upper back and posterior neck was prepped with ChloraPrep and draped with sterile towels.? C-arm was brought over the operating field and sq picture of C3-C4 and C5 vertebra were delineated on the screen.? Point of interest were delineated as lateral masses of the vertebras as above with the bilateral waist of each of the lateral mass as the target of the final needle position.? The projection of the point of interest to the skin were injected with the small amount of local anesthetic lidocaine 2% mixed with ropivacaine 0.5% 1-1 approximately 1 cc.? After that three 22 gauge 3.5 inch spinal needles were driven sequentially to the points of interest in tunnel vision fashion first on the right and after that on the left.. Lateral view demonstrating appropriate needles positioned. At the point of interests the needle was injected with small amount of the contrast.? The injection of the contrast did not demonstrate any intravascular or intrathecal spread of the contrast.? After that injection of the?ropivacaine 0.5%-1cc was performed at each needle location.?? After that the needles were removed and Bandaids were applied. Patient tolerated the procedure well she was taken outside of the operating room to recovery room.
[2025-05-17 14:03] VITALS: BP 112/76; PULSE 85; RESP 16; TEMP 36.1; O2SAT 95
[2025-05-17 14:05] VITALS: BP 116/80; PULSE 87; RESP 16; O2SAT 95
[2025-05-17 14:10] VITALS: BP 116/73; PULSE 84; RESP 16; O2SAT 95
[2025-05-17 14:15] VITALS: BP 111/75; PULSE 84; RESP 16; O2SAT 95
[2025-05-17 14:30] VITALS: BP 124/72; PULSE 82; RESP 16; TEMP 36.1; O2SAT 95
== END 2025-05-17 15:05 | disposition home or self-care (01) ==
PROVIDERS: PCP Internal Medicine; Visit Provider Anesthesiology
PROC: (CPT 64490; principal; 2025-05-17 12:30)
DX: M47.812 Spondylosis without myelopathy or radiculopathy, cervical region (principal); G89.4 Chronic pain syndrome; M79.7 Fibromyalgia; R20.0 Anesthesia of skin; M17.0 Bilateral primary osteoarthritis of knee; Z96.651 Presence of right artificial knee joint; M19.049 Primary osteoarthritis, unspecified hand; G43.909 Migraine, unspecified, not intractable, without status migrainosus; R42 Dizziness and giddiness; Z91.0110 Allergy to milk products, unspecified; Z88.6 Allergy status to analgesic agent; Z88.5 Allergy status to narcotic agent; Z90.49 Acquired absence of other specified parts of digestive tract; Z98.890 Other specified postprocedural states
CPT/HCPCS: 64490; 64491; J2003; J2250; J2405; J2795; Q9967

== ENCOUNTER → 2025-05-17 10:54 | Outpatient (BNV) | payer MEDICARE, MEDICAID, SELFPAY | PROVIDERS: PCP Internal Medicine; Visit Provider Anesthesiology | DX: M47.812 Spondylosis without myelopathy or radiculopathy, cervical region (principal) | CPT/HCPCS: 64490; 64491 ==

== ENCOUNTER 2025-05-29 10:47 | Outpatient (AMB) | payer MEDICARE, MEDICAID, SELFPAY ==
--- OUTSIDE RECORDS SUMMARY | 2024-04-11 04:00 | XMS_ITS ---
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 Consider using apps like [employer], AudioCure Pharmapal, lose it, stick as needed for self-monitoring and weight management. Consider group exercises. Consider hiring a personal lines agent. Regular exercise is mccurdy to sustainable health [...] counseling and psychiatry and Dr Iniguez at [facility]. We would like to cover regular topics [...] Dictation was accomplished with the use of Anaplan voice recognition software, prone to medical misidentifications [...] track activity level. Consider using apps like [employer], [employer] Pharmapal, lose it, stick as needed for self-monitoring and weight management. Consider group exercises. Consider hiring a personal lines agent. Regular exercise is mccurdy to sustainable health [...] counseling and psychiatry and Dr Iniguez at [facility]. We would like to cover regular topics [...] Dictation was accomplished with the use of Anaplan voice recognition software, prone to medical misidentifications [...] track activity level. Consider using apps like [employer], [employer]Cure Pharmapal, lose it, stick as needed for self-monitoring and weight management. Consider group exercises. Consider hiring a personal lines agent. Regular exercise is mccurdy to sustainable health [...] counseling and psychiatry and Dr Iniguez at [facility]. We would like to cover regular topics [...] Dictation was accomplished with the use of Anaplan voice recognition software, prone to medical misidentifications [...] track activity level. Consider using apps like [employer], [employer] Pharm[employer]al, lose it, stick as needed for self-monitoring and weight management. Consider group exercises. Consider hiring a personal lines agent. Regular exercise is mccurdy to sustainable health [...] counseling and psychiatry and Dr Iniguez at [facility]. We would like to cover regular topics [...] Dictation was accomplished with the use of Anaplan voice recognition software, prone to medical misidentifications [...] track activity level. Consider using apps like [employer], [employer] Pharm[employer], lose it, stick as needed for self-monitoring and weight management. Consider group exercises. Consider hiring a personal lines agent. Regular exercise is mccurdy to sustainable health [...] counseling and psychiatry and Dr Iniguez at [facility]. We would like to cover regular topics [...] Dictation was accomplished with the use of Anaplan voice recognition software, prone to medical misidentifications [...] track activity level. Consider using apps like [employer], [employer] Pharmapal, lose it, stick as needed for self-monitoring and weight management. Consider group exercises. Consider hiring a personal lines agent. Regular exercise is mccurdy to sustainable health [...] counseling and psychiatry and Dr Iniguez at [facility]. We would like to cover regular topics [...] Dictation was accomplished with the use of Anaplan voice recognition software, prone to medical misidentifications [...] track activity level. Consider using apps like [employer], myfitnesspal, lose it, stick as needed for self-monitoring and weight management. Consider group exercises. Consider hiring a personal lines agent. Regular exercise is mccurdy to sustainable health [...] counseling and psychiatry and Dr Iniguez at [facility]. We would like to cover regular topics [...] Dictation was accomplished with the use of Anaplan voice recognition software, prone to medical misidentifications [...] track activity level. Consider using apps like [employer], myfitMKN Web Solutionspal, lose it, stick as needed for self-monitoring and weight management. Consider group exercises. Consider hiring a personal lines agent. Regular exercise is mccurdy to sustainable health [...] counseling and psychiatry and Dr Iniguez at [facility]. We would like to cover regular topics [...] Dictation was accomplished with the use of Anaplan voice recognition software, prone to medical misidentifications [...] specialist- Dr. 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 Ewa pierre, currently on cymbalta 30 [...] * Kristy LIDOB:1970 ( 55 yo F)Acc No.[id number]:04/11/2024 Patient: Kristy Torres Provider: Lucie Pérez PA-C :1970 A ge:54 Y S ex:Female Date:04/11/2024 Address:[address] [place], [place] [id number] Pcp:JOE COOLEY Subjective: * Chief Complaints: * [...] specialist- Dr. 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 Ewa pierre, currently on cymbalta 30 [...] track activity level. Consider using apps like [employer], [employer]Cure Pharmapal, lose it, stick as needed for self-monitoring and weight management. Consider group exercises. Consider hiring a personal lines agent. Regular exercise is mccurdy to sustainable health [...] counseling and psychiatry and Dr Iniguez at [facility]. We would like to cover regular topics [...] Dictation was accomplished with the use of Anaplan voice recognition software, prone to medical misidentifications [...] OFFICE VISIT Billing Information: * Procedure Codes: 35419 NO SHOW OFFICE VISIT. * Electronic signature of Maddi Pérez PA-C on 05/29/2025 at 12:30 PM EST Sign off status: Pending * Provider: Lucie Pérez PA-C Date: Generated for Savi altamirano/Eric/Carlos Eduardo on: 07/30/2024 12:30 PM EST
--- OUTSIDE RECORDS SUMMARY | 2025-04-11 04:15 | XMS_ITS ---
Author Organization [facility] [address] Address [address] [place] [address] Care Team Providers Care Engineering Aid Name Role Phone JOE COOLEY Primary Care Provider UnavailSADAF Knox Unavailable [phone] Maddi Pérez Unavailable [phone] Encounters Encounter Location Date Provider Diagnosis [facility] [address] [address] 04/11/2025 Maddi Pérez Plan Of Treatment No Information Progress Notes * Kristy LIDOB:1970 ( 55 yo F)Acc No.[id number]:04/11/2025 Patient: Narinder Kristy davalos Provider: Lucie Pérez PA-C :1970 A ge:55 Y S ex:Female Date:04/11/2025 Address:[address] [place], [place] [id number] Pcp:JOE COOLEY * Electronic signature of Maddi Pérez PA-C on 05/29/2025 at 12:30 PM EST Sign off status: Pending * Provider: Lucie Pérez PA-C Date: 1 Generated for Savi altamirano/Eric/eTransmitting on: 07/30/2024 12:30 PM EST
--- NOTE | 2025-05-29 10:49 | A.OFFVIS_ITS ---
Vital Signs 05/29/25 10:51 Height 4 ft 11 in Weight 154 lb 15.759 oz BMI 31.3 BP 110/70 Blood Pressure Location Lt brachial Position Sitting Pulse 95 Pulse Source Pulse Oximeter Pulse Oximetry (%) 96 Oxygen Delivery Method Room Air Intake Visit Reasons: per MD Intake Note: Pt seen today for OA follow up. Accompanied by: Self / Same As Patient Allergies aspirin (ASPIRIN) Allergy (Intermediate, Verified 05/29/25 10:49) STOMACH UPSET NSAIDS (Non-Steroidal Anti-Inflamma Allergy (Mild, Verified 05/29/25 10:49) Stomach Upset acetaminophen (Percocet) Allergy (Unknown, Verified 05/29/25 10:49) Unknown codeine (CODEINE) Adverse Reaction (Intermediate, Verified 05/29/25 10:49) STOMACH UPSET oxycodone (From PERCOCET) Adverse Reaction (Intermediate, Verified 05/29/25 10:49) STOMACH UPSET Lactose Allergy (Unknown, Uncoded 04/09/25 14:13) Unknown HPI HPI per MD: Details: She continues to have pain in her hips. When she went to urgent care after last visit her blood pressure reduced. No intervention was performed. She feels well. [facility] Medical History FH: cholecystectomy Osteoarthritis, hand Osteoarthritis of knees, bilateral Fibromyalgia Surgical History Hx of cholecystectomy History of total right knee replacement History of esophagogastroduodenoscopy (EGD) History of carpal tunnel release of both wrists Family History Father Stroke CVD (cardiovascular disease) Mother Gastritis Skin cancer Social History Household Members: Spouse Housing: House Are you a primary skin care specialist to a significant other at home: No Do you presently have visiting nurse or other home services: No 75 years or older and lives alone: No Alcohol intake: never Patient Tobacco Use Status: Never used Tobacco e-Cigarette/Vaping Use: Never Used Second Hand Smoke Exposure: No service: No Current occupational status: disabled Physical Exam Vital Signs: Last Vital Signs Pulse 95 05/29/25 10:51 BP 110/70 05/29/25 10:51 Pulse Ox 96 05/29/25 10:51 Oxygen Delivery Method Room Air 05/29/25 10:51 BMI result Body Mass Index 31.3 Const Other: General: Comfortable Skin: No lesions seen MSK: Tender to palpate bilateral trochanteric bursae. Normal hip range of motion. Office Procedures AMB Joint Injection/Aspiration Joint Injection/Aspiration Details: Bilateral trochanteric bursa Prep: site was prepped using aseptic technique Injected into each site: 40 mg of, Kenalog, with 1 mL of and 1% plain lidocaine Procedure: Informed verbal consent was obtained. The patient tolerated the procedure well. Postprocedure protocol was discussed with patient. Coding - Bilateral Large Joint Procedure code (CPT) selection complete AMB Joint Injection/Aspiration Coding 75196 - Large joint Procedure code (CPT) selection complete Office Meds lidocaine (PF) 10 mg/mL (1 %) injection solution Performing Provider: Yuval Rodriguez MD Performing Location: [facility] Administered by: Yuval Rodrgiuez MD on 05/29/25 11:30 Dose Route Admin Location Dispensed Lot Number Expiration Date [facility] [employer] Repair Technician 1 mL Infiltration left hip bursa 2 mL [id number] 02/25/28 54381-128-4 4 [employer] Total Dispensed Waste 2 mL 50 % Kenalog 40 mg/mL suspension for injection Performing Provider: Yuval Rodriguez MD Performing Location: [facility] Administered by: Yuval Rodriguez MD on 05/29/25 11:30 Dose Route Admin Location Dispensed Lot Number Expiration Date [facility] Electronics Repair Technician 40 mg intrabursal 1 mL [id number] 12/24/26 [address]-1 [employer] Total Dispensed Waste 1 mL 0 % lidocaine (PF) 10 mg/mL (1 %) injection solution Performing Provider: Yuval Rodriguez MD Performing Location: [facility] Administered by: Yuval Rodriguez MD on 05/29/25 11:30 Dose Route Admin Location Dispensed Lot Number Expiration Date [facility] Electronics Repair Technician 1 mL Infiltration right hip bursa 2 mL [id number] 02/25/28 89787-338- 04 [employer] Total Dispensed Waste 2 mL 50 % Kenalog 40 mg/mL suspension for injection Performing Provider: Yuval Rodriguez MD Performing Location: [facility] Administered by: Yuval Rodriguez MD on 05/29/25 11:30 Dose Route Admin Location Dispensed Lot Number Expiration Date [facility] Electronics Repair Technician 40 mg intrabursal right hip bursa 1 mL [id number] 12/24/26 [address] -1 [employer] Total Dispensed Waste 1 mL 0 % Assessment & Plan Assessment & Plan (1) Greater trochanteric bursitis of both hips: Comment: Recurrent. Pain is uncontrolled. Rheumatology history: Cortisone injection bilateral trochanteric bursitis received January 2025. Intolerant to multiple NSAIDs due to GI upset. She initial benefit with PT. Code(s): M70.61 - Trochanteric bursitis, right hip; M70.62 - Trochanteric bursitis, left hip Category: Medical Plan: Patient received cortisone injections to bilateral trochanteric bursae Return to clinic in 3 months Orders: Orders AMB Joint Injection/Aspiration Today M70.61 - Trochanteric bursitis, right hip, M70.62 - Trochanteric bursitis, left hip AMB Joint Injection/Aspiration Today M70.61 - Trochanteric bursitis, right hip, M70.62 - Trochanteric bursitis, left hip Coding Level of Care Code Est Pt Level 3 (21596) Complex visit Add On G2211 Diagnoses Greater trochanteric bursitis of both hips M70.61; M70.62 CPT Codes Coding - 60305 Large joint: 50421 - Large joint ([id number]) Coding - 17451 - Bilateral Large Joint: 35200 - Bilateral Large Joint ([id number])
[2025-05-29 10:51] VITALS: BP 110/70; PULSE 95; O2SAT 96; BMI 31.3
--- OUTSIDE RECORDS SUMMARY | 2025-05-29 12:30 | XMS_ITS | Encounter Summary ---
Author Organization [employer] Address [address] [place] [address] Care Team Providers Care Wig Stylist Name Role Phone Unavailable Primary Care Provider Unavailabl e Reason for Visit * Reason Onset Date Comments walking in 12/19/2023 Encounter Details Date Type Department Care Team (Late st Contact Info) Description 12/19/2023 Telephone [facility] [address] [place] [address] Lopez Gill BDS [address] [place] [address] walking in Social History Tobacco Use Types [...] Ordaz - 12/19/2023 12:47 PM EDT Contacted [facility] and front sight attacher informed if patient is looking to be [...]
--- OUTSIDE RECORDS SUMMARY | 2025-05-29 12:30 | XMS_ITS | Continuity of Care Document ---
Author Organization [place] - [facility], [facility] Address [address] [place] [id number] Care Team Providers Care Demolition Crane Operator Name Role Phone JOE COOLEY Primary Care Provider Assessment Encounter Date Assessment Date Assessment LastModified by Organization Details LastModified Time 05/08/2025 05/08/2025 Follow up with referring provider. [email or web address] Not available 05/08/2025 15:34:57 Plan of Treatment [...] Address Organization Details Recorded Time Allergic rhinitis [id number] Active 2014 Allergic rhinitis: Due to other allergen; Note: Date Diagnosed : 08/21/2014 11:43 AM (477.8) GRISELDA MICHAELS MD [address] [place] [address], [facility] [place], [address] , [facility] - [facility] 5 11:33:28 Allergic rhinitis caused by pollen 27548340 Active 2015 Allergic rhinitis: Pollinosi s; CMS Risk: low risk [facility] Treatment : new problem (to examiner) : no additiona l workup planned N ote: Date Diagnosed : 07/09/2014 11:57 AM (477.0) ; Start Date : 5 Allergi c rhinitis due to pollen; Note: Date Diagnosed : 08/15/2015 1:47 PM (J30.1) Not Available [facility] 4 02:31:33 Headache 92944089 Active 2015 Headache; Note: Date Diagnosed : 10/06/2015 9:13 AM (R51) Not Available [facility] 4 02:31:17 Snoring 77192684 Active 2015 Snoring; Note: Date Diagnosed : 10/06/2015 9:13 AM (R06.83) Not Available [facility] 4 02:31:32 Chronic rhinitis 74287467 Active 2015 Chronic rhinitis; Note: Date Diagnosed : 11/17/2015 4:40 PM (J31.0) Not Available [facility] 4 02:31:20 Fatigue 54033879 Active 2015 Other fatigue; Note: Date Diagnosed : 11/17/2015 4:18 PM (R53.83) Not Available [facility] 4 02:31:36 Obstructi ve sleep apnea syndrome 67504091 Active 2015 Obstructi ve sleep apnea (adult) (pediatri c); Note: Date Diagnosed : 11/17/2015 4:16 PM (G47.33) Not Available [facility] 4 02:31:24 Sensorine ural hearing loss of bilateral ears 521456766 Active 2016 Sensorine ural hearing loss, bilateral ; Note: Date Diagnosed : 7 4:34 PM (H90.3) Not Available [facility] 4 02:31:30 Mild intermitt ent asthma 444106004 Active 2016 Mild intermitt ent asthma, uncomplic ated; Note: Date Diagnosed : 7 4:21 PM (J45.20) Not Available [facility] 4 02:31:16 Abnormal auditory perceptio n 23432308 Active 2016 Other abnormal auditory perceptio ns, bilateral ; Note: Date Diagnosed : 7 4:21 PM (H93.293) Not Available [facility] 4 02:31:32 Bilateral tinnitus 81240075682 02 Active 2016 Tinnitus, bilateral ; Note: Date Diagnosed : 7 4:21 PM (H93.13) Not Available [facility] 4 02:31:26 Bilateral earache 372324207 Active 2019 Otalgia, bilateral ; Note: Date Diagnosed : 08/28/2019 3:36 PM (H92.03) Not Available [facility] 4 02:31:28 Nasal congestio n 69984627 Active 2019 Nasal congestio n; Note: Date Diagnosed : 08/28/2019 3:37 PM (R09.81) Not Available [facility] 4 02:31:26 Bilateral temporoma ndibular joint pain 32575748777 217942 Active 2019 Arthralgi a of bilateral temporoma ndibular joint; Note: Date Diagnosed : 08/28/2019 3:36 PM (M26.623) Not Available [facility] 4 02:31:23 Recurrent acute sinusitis 897864992 Active 2020 Other acute recurrent sinusitis ; Note: Date Diagnosed : 09/01/2020 2:42 PM (J01.81) GRISELDA MICHAELS MD [address] [place] [address],[place] [address], [place], [address] , [place] - [facility] 5 11:33:21 Chronic sinusitis 20938876 Active 2023 GRISELDA MICHAELS MD [address] [place] [address],[place] [address], [place], [address] , [place] - [facility] 4 10:30:30 Moderate persisten t asthma 436976820 Active 2023 GRISELDA MICHAELS MD [address] [facility] [place] [address], [place], [address] , [facility] - [facility] 4 10:30:36 Hypertrop hy of nasal turbinate s 71972615 Active 2024 GRISELDA MICHAELS MD [address] [facility],[place] [address], [place], [address] , [facility] - [facility] 5 11:33:32 Problem Notes None recorded. Procedures Surgical History Date Name Laterality Status Provider Name and Address Organization Details Recorded Time 5 Air & Speech Audio with Tymps - 77314, 39384 & 04609 completed ARBEN BLAKE AuD [address] [facility],[place] [address], [place], [address], [facility] 05/08/2025 15:34:57 5 JMSNasal/Sinus Endoscopy completed GRISELDA MURDOCK MD [address] [facility],[address], [address], [facility] 11/13/2024 11:21:20 4 Comp Audio with Tymps - 90803 & 96099 completed SIDDHARTH HODGES, AUD [address] [facility],[address], [address], [facility] 04/25/2024 09:42:50 Imaging Results None recorded. Procedure Notes None recorded. Medical Equipment None Reported. Allergies Allergen ID Allergen Name Allergen Category Reaction Reaction Severity Criticality Documentation Date Start Date Code Code System Note Provider Name and Address Organization Details Recorded Time 73259 ibuprofen medicatio n other Not available Not available 11/08/2023 5640 RxNorm React ion: unkno wn, unspe cifie d;; Not Available [facility] 4 01:01:11 20419 codeine sulfate medicatio n other Not available Not available 11/08/2023 29094 RxNorm React ion: unkno wn, unspe cifie d;; Not Available [facility] 4 01:01:20 37781 acetamino phen / oxycodone medicatio n other Not available Not available 11/08/2023 98110 3 RxNorm React ion: unkno wn, unspe cifie d;; Not Available [facility] 4 01:01:23 Medications Name Sig Start Date [...] prednisol one acetate 1 % eye drops,[facility] LOCATION : BOTH EYES. INSTILL ONE [...] as directed 10/11 completed Medicati on ID: [id number] Marcelino hopper By Name: RUBI Silverio nd Name: sheridan yancey Send Method: E-Prescr ibed Sub s Allowed: subs OK Medic ationGen ericName : sheridan yancey Not Available Not Available Not Available Nasonex 50 mcg/actua tion [place] 2 spray into both nostrils 10/11 completed Medicati on ID: [id number] D uration Value: 90 Prescri bed By [...] inhalatio n 02/22 completed Medicati on ID: [id number] P marlyribe d By Name: Heydi Mann [...] nasal spray 11/16 completed Medicati on ID: [id number] Pr escribed By Name: Heydi Mcgraw rd, [...] both nostrils 05/08 completed Medicati on ID: [id number] D uration Value: 30 Prescri bed By [...] Updated DateTime 05/08/2025 149.86 cm 30.5 kg/m2 39120.45 g 124/80 mm[Hg] Bertha Frost [place] - [facility] 05/08/2025 15:48:31 Social History None recorded. Functional [...] ICD10 Code Diagnosis IMO Codes Diagnosis Note [id number] GRISELDA MICHAELS MD [facility] [address] [address] 05/08/2025 15:01:28 05/08/2025 16:18:02 Bilateral tinnitus [id number] 102 H93.13 Today we discussed the pathophysi ology of tinnitus and the absence of consistent ly successful pharmacolo gic treatments for tinnitus. We discussed masking strategies to decrease awareness of the tinnitus, including using a white noise machine, music, Oravel tinnitus thom or television . We discussed how exposure to loud noise can worsen tinnitus so I recommende d hearing protection . We also discussed other ways to potentiall y help reduce awareness of tinnitus including avoidance of caffeine, salty meals and NSAIDs. Sensorineu ral hearing loss of bilateral ears 530504708 H90.3 Audiologic al evaluation results: Right ear: Normal through 2 kHz sloping to a moderate sensorineu ral hearing loss with excellent word recognitio n. Left ear: Normal through 3 kHz sloping to a moderate sensorineu ral hearing loss with excellent word recognitio n. Tympanomet ry: Right Ear:Type A Left Ear:Type A [id number] Lita TOMLINSON [facility] [address] [address] 05/08/2025 15:34:49 05/10/2025 00:25:58 Sensorineural hearing loss of bilateral ears 753045659 H90.3 Audiologic al evaluation results: Right ear: [...] ID Guarantor Name 05/08/2025 1 MEDICARE B-[place]: [employer] Kristy Li [id number] Kristy Li 05/08/2025 2 [place] [facility] Kristy Li [id number] Kristy Li Notes Date Note Type Note [...] during the visit. GRISELDA MURDOCK MD [address], [address], [facility] 05/08/2025 16:36:29 05/08/2025 text/html Audiological Evaluation HPIReported by PatientHearing LossFor hearing loss perceived, patient reportshearing loss in both ears (no differences noted between ears). Lita TOMLINSON [address] [place] [address], [phone], [facility] 05/08/2025 15:35:56 OBGyn Episode No OBEpisode recorded.
--- OUTSIDE RECORDS SUMMARY | 2025-05-29 12:30 | XMS_ITS | Clinical Summary ---
Author Organization [facility] Address [address] [place] [phone] Phone Care Team Providers Care Sports Medicine Physician Name Role Phone Carlos Gonsales MD Primary Care Provider [phone] Social History Tobacco Use Types Packs/Day Years [...] Medical Devices Not on file Insurance [employer] [place] OUT STATE PPO OUT [facility] P[facility] OUT [facility] PPO [facility] [place] OUT OF STATE PPO [facility] OUT OF STATE PPO [facility] OUT OF STATE PPO OUT [facility] [place] [address] [place] [address] PPO [employer] [place] OUT OF STATE PPO Care Teams Sports Medicine Physician Relationship Specialty Start Date End Date Carlos Gonsales MD [address] [place] [address] PCP - General Internal Medicine 08/14/21 Additional Source Comments The information contained in this document represents components of the legal health record. It is not the complete legal health record.[facility]
--- OUTSIDE RECORDS SUMMARY | 2025-05-29 12:30 | XMS_ITS | Clinical Summary ---
Author Organization [employer] Address [address] [facility] [address] [place] [address] Care Team Providers Care Hoop Puncher Name Role Phone Unavailable Primary Care Provider [...] TABLET FOUR TIMES DAILY Active nystatin (Mycostatin) 879421 UNIT/ML suspension Take 4 mL by mouth [...] Most Recently Relevant to Health Maintenance Insurance [facility]
--- OUTSIDE RECORDS SUMMARY | 2025-05-29 12:30 | XMS_ITS | Encounter Summary ---
Author Organization [employer] Address [address] [facility] [address] [place] [address] Care Team Providers Care Paperboard Machine Operator Name Role Phone Unavailable Primary Care Provider Unavailabl e Reason for Visit * Reason Onset Date Comments referral for Oral Surgery 09/14/2024 Encounter Details Date Type Department Care Team (Late st Contact Info) Description 09/14/2024 Telephone [facility] [address] [place] [address] Mert Giang [address] [place] [address] referral for Oral Surgery Social History Tobacco [...] that she went to the front desk clerk and informed no documentation had been sent concerning patient request for referral. However documentation was sent to provider as opposed to front desk clerk seeing that providers provide referrals. Also sending to Jose the event she was calling patient concerning cancelled Oral Surgery appt for September. Patient called in seeking referral to go to an oral surgeon for a lesion on her tongue. Patient active requested since 03/2024 and was able to get in elsewhere sooner. Provider will prepare referral and patient will come to pickers material handlers after having received call from front desk clerk that referral is ready. Patient questioned how soon it would be ready. I was explained to patient that I did not have an official timeframe, however office will reach out to her and she can pickers material handlers once it is ready. Patient is concerned [...] prepare referral and patient will come to pickers material handlers after having received call from front desk clerk that referral is ready. Patient questioned how soon it would be ready. I was explained to patient that I did not have an official timeframe, however office will reach out to her and she can pickers material handlers once it is ready. Patient is concerned [...]
--- OUTSIDE RECORDS SUMMARY | 2025-05-29 12:30 | XMS_ITS | Encounter Summary ---
Author Organization [employer] Address [address] [facility] [address] [place] [address] Care Team Providers Care Plug Making Operator Name Role Phone Sudarshan Hdz MD Primary [...] on filedocumented in this encounter Care Teams Plug Making Operator Relationship Specialty Start Date End Date Sudarshan Hdz MD [address] [place] [id number] PCP - General Internal Medicine 11/27/19 06/30/23 documented as of this encounter
--- OUTSIDE RECORDS SUMMARY | 2025-05-29 12:30 | XMS_ITS | Data Portability ---
Author Organization [place] - [facility], Allergy Address [address] [place] [address] Care Team Providers Care Cabin Furnishings Installer Name Role Phone JOE COOLEY Primary Care [...] 05/08/2025 05/08/2025 Follow up with referring provider. 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 No hearing aids are required at this time. For management of tinnitus, I recommend using the [employer] Tinnitus thom, which provides soothing sounds such [...] contras t 2024 025 [email or web address] [facility] Of [address], [address], 01/14/2025 09:36:36 CT, maxillo facial, w/o contras t 2024 025 [email or web address] [facility], [address] [place] [address], [phone], 11/20/2024 09:39:17 Medication Orders None recorde d. Patient TargetsNo targets recorded. Patient Instructions Encounter Date Encounter Id Patient Instructions Last Modified By Organization Details Last Modified Time 11/13/2024 [id number] Patient with history of allergic rhinitis and [...] sinuses [email or web address] Not available 11/13/2024 11:34:22 05/08/2025 [id number] - Use the [employer] Tinnitus thom for soothing sounds to manage [...] audio gram No observ ation record ed. Not Available 03/29 10:55:50 01/15/[address], sinus es, w/o contr ast No observ ation record ed. [facility] [address], [address], 01/14/2025 09:33:25 02/10/20 25 01/14/2025 CT, sinus es, w/o contr ast No observ ation record ed. [facility] [place] [address], [place], [address], 02/10/2025 14:06:55 05/08/20 25 audio gram No observ ation record ed. BAR[employer] Not Available 2024 16:12:54 Result Notes None recorded. Problems Name Problem SNOMED Code Status Onset Date Resolution Date Notes Provider Name and Address Organization Details Recorded Time Allergic rhinitis 48234909 Active 2014 Allergic rhinitis: Due to other allergen; Note: Date Diagnosed : 08/21/2014 11:43 AM (477.8) GRISELDA MICHAELS MD [address] [place] [address] [place], [address] , [facility] - [facility] 11:33:28 Allergic rhinitis caused by pollen 58793044 Active 2015 Allergic rhinitis: Pollinosi s; CMS Risk: low risk CMS Treatment : new problem (to examiner) : no additiona l workup planned N ote: Date Diagnosed : 07/09/2014 11:57 AM (477.0) ; Start Date : 5 Allergi c rhinitis due to pollen; Note: Date Diagnosed : 08/15/2015 1:47 PM (J30.1) Not Available [facility] 4 02:31:33 Headache 37879441 Active 2015 Headache; Note: Date Diagnosed : 10/06/2015 9:13 AM (R51) Not Available [facility] 4 02:31:17 Snoring 20424556 Active 2015 Snoring; Note: Date Diagnosed : 10/06/2015 9:13 AM (R06.83) Not Available [facility] 4 02:31:32 Chronic rhinitis 24087714 Active 2015 Chronic rhinitis; Note: Date Diagnosed : 11/17/2015 4:40 PM (J31.0) Not Available [facility] 4 02:31:20 Fatigue 48911219 Active 2015 Other fatigue; Note: Date Diagnosed : 11/17/2015 4:18 PM (R53.83) Not Available [facility] 4 02:31:36 Obstructi ve sleep apnea syndrome 86423605 Active 2015 Obstructi ve sleep apnea (adult) (pediatri c); Note: Date Diagnosed : 11/17/2015 4:16 PM (G47.33) Not Available [facility] 4 02:31:24 Sensorine ural hearing loss of bilateral ears 051985673 Active 2016 Sensorine ural hearing loss, bilateral ; Note: Date Diagnosed : 7 4:34 PM (H90.3) Not Available [facility] 4 02:31:30 Mild intermitt ent asthma 683237085 Active 2016 Mild intermitt ent asthma, uncomplic ated; Note: Date Diagnosed : 7 4:21 PM (J45.20) Not Available [facility] 4 02:31:16 Abnormal auditory perceptio n 19462813 Active 2016 Other abnormal auditory perceptio ns, bilateral ; Note: Date Diagnosed : 7 4:21 PM (H93.293) Not Available [facility] 4 02:31:32 Bilateral tinnitus 57944141770 02 Active 2016 Tinnitus, bilateral ; Note: Date Diagnosed : 7 4:21 PM (H93.13) Not Available [facility] 4 02:31:26 Bilateral earache 199948263 Active 2019 Otalgia, bilateral ; Note: Date Diagnosed : 08/28/2019 3:36 PM (H92.03) Not Available [facility] 4 02:31:28 Nasal congestio n 81964540 Active 2019 Nasal congestio n; Note: Date Diagnosed : 08/28/2019 3:37 PM (R09.81) Not Available [facility] 4 02:31:26 Bilateral temporoma ndibular joint pain 72569423385 318155 Active 2019 Arthralgi a of bilateral temporoma ndibular joint; Note: Date Diagnosed : 08/28/2019 3:36 PM (M26.623) Not Available [facility] 4 02:31:23 Recurrent acute sinusitis 628233595 Active 2020 Other acute recurrent sinusitis ; Note: Date Diagnosed : 09/01/2020 2:42 PM (J01.81) GRISELDA MICHAELS MD [address] [place] [address],[place] [address], [place], [address] , [place] - [facility] 5 11:33:21 Chronic sinusitis 27119332 Active 2023 GRISELDA MICHAELS MD [address] [facility],[place] [address], [place], [address] , [place] [facility] 4 10:30:30 Moderate persisten t asthma 437031400 Active 2023 GRISELDA MICHAELS MD [address] [place] [address],[place] [address], [place], [address] , [place] [facility] 4 10:30:36 Hypertrop hy of nasal turbinate s 21280223 Active 2024 GRISELDA MICHAELS MD [address] [facility],[place] [address], [place], [address] , [facility] 5 11:33:32 Problem Notes None recorded. Procedures Surgical History Date Name Laterality Status Provider Name and Address Organization Details Recorded Time 5 Air & Speech Audio with Tymps - 14195, 85764 & 30534 completed ARBEN BLAKE, [facility] [address] [facility],[address], [address], [facility] - [facility] 05/08/2025 15:34:57 5 JMSNasal/Sinus Endoscopy completed GRISELDA MURDOCK MD [address] [facility],[address], [address], [facility] 11/13/2024 11:21:20 4 Comp Audio with Tymps - 67630 & 93251 completed SIDDHARTH HODGES, [facility] [address] [facility],[place] [address], [place], [address], [facility] 04/25/2024 09:42:50 Imaging Results None recorded. Procedure Notes None recorded. Medical Equipment None Reported. Allergies Allergen ID Allergen Name Allergen Category Reaction Reaction Severity Criticality Documentation Date Start Date Code Code System Note Provider Name and Address Organization Details Recorded Time 54901 ibuprofen medicatio n other Not available Not available 11/08/2023 5640 RxNorm React ion: unkno wn, unspe cifie d;; Not Available [facility] 4 01:01:11 31936 codeine sulfate medicatio n other Not available Not available 11/08/2023 75042 RxNorm React ion: unkno wn, unspe cifie d;; Not Available [facility] 4 01:01:20 86139 acetamino phen / oxycodone medicatio n other Not available Not available 11/08/2023 52029 3 RxNorm React ion: unkno wn, unspe cifie d;; Not Available [facility] 4 01:01:23 Medications Name Sig Start [...] Available prednisol one acetate 1 % eye drops,[facility] LOCATION : BOTH EYES. INSTILL [...] as directed 10/11 completed Medicati on ID: [id number] Marcelino garces d By Name: RUBI Silverio nd Name: azelasti ne Send Method: E-Prescr ibed Sub s Allowed: subs OK Medic ationGen ericName : azelasti ne Not Available Not Available Not Available Nasonex 50 mcg/actua tion [place] 2 spray into both nostrils 10/11 completed Medicati on ID: [id number] D uration Value: 90 Prescri bed By [...] inhalatio n 02/22 completed Medicati on ID: [id number] P marlyribe d By Name: Heydi Mann [...] nasal spray 11/16 completed Medicati on ID: [id number] Pr escribed By Name: Heydi Mcgraw rd, [...] both nostrils 05/08 completed Medicati on ID: [id number] D uration Value: 30 Prescri bed By [...] Updated DateTime 11/13/2024 149.86 cm 29.9 kg/m2 88157.67 g Anca Lewis [facility] 11/13/2024 11:00:31 Date Recorded Body height Body mass index (BMI) Body weight Systolic And Diastolic Provider Name and Address Organization Details Last Updated DateTime 05/08/2025 149.86 cm 30.5 kg/m2 52157.45 g 124/80 mm[Hg] Bertha Frost [facility] 05/08/2025 15:48:31 Social History None recorded. [...] ICD10 Code Diagnosis IMO Codes Diagnosis Note [id number] GRISELDA MICHAELS MD [facility] [address] [address] 04/25/2024 09:11:31 04/25/2024 10:34:58 Bilateral tinnitus 6767789644 102 H93.13 Sensorineu ral hearing loss of bilateral ears 528347314 H90.3 Audiologic al evaluation results: Right ear: Normal through 2 kHz sloping to a moderate sensorineu ral hearing loss with excellent word recognitio n. Left ear: Normal through 3 kHz sloping to a moderate sensorineu ral hearing loss with excellent word recognitio n. Tympanomet ry: Right Ear:Type A Left Ear:Type A Chronic sinusitis 702653 00 J32.9 Moderate p ersistent asthma 200403891 J45.40 [id number] GRISELDA MICHAELS MD [facility] [address] [address] 11/13/2024 10:34:14 11/13/2024 11:41:51 Recurrent acute sinusitis 876139312 J01.81 7450641 Allergic rhinitis 657889 04 J30.9 4112877 Hypertroph y of nasal turbinates 80375280 J34.3 817953 Chronic sinusitis 124564 00 J32.9 [id number] GRISLEDA MICHAELS MD [facility] [address] [address] 01/14/2025 08:59:25 01/14/2025 09:36:36 Chronic rhinitis 88805640 J31.0 [id number] GRISELDA MICHAELS MD [facility] [address] [address] 05/08/2025 15:01:28 05/08/2025 16:18:02 Bilateral tinnitus 0510569634 102 H93.13 Today we discussed the pathophysi ology of tinnitus and the absence of consistent ly successful pharmacolo gic treatments for tinnitus. We discussed masking strategies to decrease awareness of the tinnitus, including using a white noise machine, music, [employer] tinnitus thom or television . We discussed how exposure to loud noise can worsen tinnitus so I recommende d hearing protection . We also discussed other ways to potentiall y help reduce awareness of tinnitus including avoidance of caffeine, salty meals and NSAIDs. Sensorineu ral hearing loss of bilateral ears 921611309 H90.3 Audiologic al evaluation results: Right ear: Normal through 2 kHz sloping to a moderate sensorineu ral hearing loss with excellent word recognitio n. Left ear: Normal through 3 kHz sloping to a moderate sensorineu ral hearing loss with excellent word recognitio n. Tympanomet ry: Right Ear:Type A Left Ear:Type A [id number] Lita TOMLINSON [facility] [address] [address] 05/08/2025 15:34:49 05/10/2025 00:25:58 Sensorineural hearing loss of bilateral ears 997963025 H90.3 Audiologic al evaluation results: Right ear: [...] 05/08/2025 1 [place] [id number] Edwin Guillermo [id number] [facility] 05/08/2025 1 [place] [employer] Kristy Li [id number] Kristy Li 05/08/2025 2 [place] Kristy Gregorys [id number] [facility] Notes Date Note Type Note Provider Name [...] Dupixent for asthma. GRISELDA MURDOCK MD [address] [facility] [place],[address], [address], [facility] 04/25/2024 10:32:04 11/13/2024 text/html ROS as [...] distress, not asthma GRISELDA MURDOCK MD [address] [facility] [place] [address], [place], [address], [facility] 11/13/2024 11:35:32 01/14/2025 text/html Follow-up for concerns of chronic right send possible sinusitis. Overall doing well. She still has occasional headache. History of allergy and migraine GRISELDA MURDOCK MD [address] [facility],[address], [address], [facility] 01/14/2025 09:36:08 05/08/2025 text/html Kristy Li is [...] during the visit. GRISELDA MURDOCK MD [address] [facility],[place] [address], [place], [address], [facility] 05/08/2025 16:36:29 05/08/2025 text/html Audiological Evaluation HPIReported by PatientHearing LossFor hearing loss perceived, patient reportshearing loss in both ears (no differences noted between ears). Lita TOMLINSON [address] [facility],[place] [address], [place], [address], [facility] 05/08/2025 15:35:56 OBGyn Episode No OBEpisode recorded.
--- OUTSIDE RECORDS SUMMARY | 2025-05-29 12:30 | XMS_ITS | Encounter Summary ---
Author Organization [employer] Address [address] [place] [address] [address] [place] [address] Care Team Providers Care Resistor Inspector Name Role Phone Unavailable Primary Care Provider Unavailabl e Reason for Visit * Reason Comments Med Refill Encounter Details Date Type Department Care Team (Late st Contact Info) Description 05/31/2024 Refill [facility] [address] [place] [address] Chet Wade DDS [address] [place] [address] Social History Tobacco Use Types Packs/Day Years [...]
--- OUTSIDE RECORDS SUMMARY | 2025-05-29 12:30 | XMS_ITS | Encounter Summary ---
Author Organization [facility] Address [address] [place] [address] [address] [place] [address] Care Team Providers Care Associate Quality Engineer Name Role Phone Unavailable Primary Care Provider Unavailabl e Reason for Visit * Reason Onset Date Comments Extraction 03/22/2024 Encounter Details Date Type Department Care Team (Late st Contact Info) Description 03/22/2024 Telephone [facility] [address] [place] [address] Lopez Gill BDNicky [address] [place] [address] Extraction Social History Tobacco Use Types Packs/Day [...]
--- OUTSIDE RECORDS SUMMARY | 2025-05-29 12:30 | XMS_ITS | Continuity of Care Document ---
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 No hearing aids are required at this time. For management of tinnitus, I recommend using the [employer]ognio Tinnitus thom, which provides soothing sounds such [...] By Organization Details Last Modified Time 05/08/2025 22096 - Use the Cognio Tinnitus thom for soothing sounds to manage [...] Address Organization Details Recorded Time Allergic rhinitis [id number] Active 2014 Allergic rhinitis: Due to other allergen; Note: Date Diagnosed : 08/21/2014 11:43 AM (477.8) GRISELDA MICHAELS MD [address] [place] [address], [place], [address] , [facility] - [facility] 5 11:33:28 Allergic rhinitis caused by pollen 49070509 Active 2015 Allergic rhinitis: Pollinosi s; [facility] Risk: low risk [facility] Treatment : new problem (to examiner) : no additiona l workup planned N ote: Date Diagnosed : 07/09/2014 11:57 AM (477.0) ; Start Date : 5 Allergi c rhinitis due to pollen; Note: Date Diagnosed : 08/15/2015 1:47 PM (J30.1) Not Available [facility] 4 02:31:33 Headache 48283799 Active 2015 Headache; Note: Date Diagnosed : 10/06/2015 9:13 AM (R51) Not Available [facility] 4 02:31:17 Snoring 30606864 Active 2015 Snoring; Note: Date Diagnosed : 10/06/2015 9:13 AM (R06.83) Not Available [facility] 4 02:31:32 Chronic rhinitis 16007865 Active 2015 Chronic rhinitis; Note: Date Diagnosed : 11/17/2015 4:40 PM (J31.0) Not Available [facility] 4 02:31:20 Fatigue 29762912 Active 2015 Other fatigue; Note: Date Diagnosed : 11/17/2015 4:18 PM (R53.83) Not Available [facility] 4 02:31:36 Obstructi ve sleep apnea syndrome 30432274 Active 2015 Obstructi ve sleep apnea (adult) (pediatri c); Note: Date Diagnosed : 11/17/2015 4:16 PM (G47.33) Not Available [facility] 4 02:31:24 Sensorine ural hearing loss of bilateral ears 217629351 Active 2016 Sensorine ural hearing loss, bilateral ; Note: Date Diagnosed : 7 4:34 PM (H90.3) Not Available [facility] 4 02:31:30 Mild intermitt ent asthma 366406486 Active 2016 Mild intermitt ent asthma, uncomplic ated; Note: Date Diagnosed : 7 4:21 PM (J45.20) Not Available [facility] 4 02:31:16 Abnormal auditory perceptio n 60589304 Active 2016 Other abnormal auditory perceptio ns, bilateral ; Note: Date Diagnosed : 7 4:21 PM (H93.293) Not Available [facility] 4 02:31:32 Bilateral tinnitus 85183999331 02 Active 2016 Tinnitus, bilateral ; Note: Date Diagnosed : 7 4:21 PM (H93.13) Not Available [facility] 4 02:31:26 Bilateral earache 790800997 Active 2019 Otalgia, bilateral ; Note: Date Diagnosed : 08/28/2019 3:36 PM (H92.03) Not Available [facility] 4 02:31:28 Nasal congestio n 71924651 Active 2019 Nasal congestio n; Note: Date Diagnosed : 08/28/2019 3:37 PM (R09.81) Not Available [facility] 4 02:31:26 Bilateral temporoma ndibular joint pain 52061939928 383115 Active 2019 Arthralgi a of bilateral temporoma ndibular joint; Note: Date Diagnosed : 08/28/2019 3:36 PM (M26.623) Not Available [facility] 4 02:31:23 Recurrent acute sinusitis 964058417 Active 2020 Other acute recurrent sinusitis ; Note: Date Diagnosed : 09/01/2020 2:42 PM (J01.81) GRISELDA MICHAELS MD [address] [facility],[place] [address], [place], [address] , [facility] - [facility] 5 11:33:21 Chronic sinusitis 28674541 Active 2023 GRISELDA MICHAELS MD [address] [place] [address],[place] [address], [place], [address] , [facility] - [facility] 4 10:30:30 Moderate persisten t asthma 597347091 Active 2023 GRISELDA MICHAELS MD [address] [place] [address],[place] [address], [place], [address] , [facility] - [facility] 4 10:30:36 Hypertrop hy of nasal turbinate s 24729283 Active 2024 GRISELDA MICHAELS MD [address] [place] [address],[place] [address], [place], [place], [address] , [facility] - [facility] 5 11:33:32 Problem Notes None recorded. Procedures Surgical History Date Name Laterality Status Provider Name and Address Organization Details Recorded Time 5 Air & Speech Audio with Tymps - 25027, 65968 & 21228 completed Bnejie TOMLINSON [address] [facility] [place] [address], [place], [address], [facility] - [facility] 05/08/2025 15:34:57 5 JMSNasal/Sinus Endoscopy completed GRISELDA MURDOCK MD [address] [facility], [place], [address], [facility] 11/13/2024 11:21:20 4 Comp Audio with Tymps - 20950 & 48244 completed BENJIE SOTO [address] [facility], [place], [address], [facility] 04/25/2024 09:42:50 Imaging Results None recorded. Procedure Notes None recorded. Medical Equipment None Reported. Allergies Allergen ID Allergen Name Allergen Category Reaction Reaction Severity Criticality Documentation Date Start Date Code Code System Note Provider Name and Address Organization Details Recorded Time 46137 ibuprofen medicatio n other Not available Not available 11/08/2023 5640 RxNorm React ion: unkno wn, unspe cifie d;; Not Available [facility] 4 01:01:11 58736 codeine sulfate medicatio n other Not available Not available 11/08/2023 13643 RxNorm React ion: unkno wn, unspe cifie d;; Not Available [facility] 4 01:01:20 28581 acetamino phen / oxycodone medicatio n other Not available Not available 11/08/2023 43834 3 RxNorm React ion: unkno wn, unspe cifie d;; Not Available [facility] 4 01:01:23 Medications Name Sig Start [...] Available prednisol one acetate 1 % eye drops,[facility] LOCATION : BOTH EYES. INSTILL ONE [...] as directed 10/11 completed Medicati on ID: [id number] P mili d By Name: RUBI Silverio nd Name: azelasti ne Send Method: E-Prescr ibed Sub s Allowed: subs OK Medic ationGen ericName : azelasti ne Not Available Not Available Not Available Nasonex 50 mcg/actua tion [place] 2 spray into both nostrils 10/11 completed Medicati on ID: [id number] D uration Value: 90 Prescri bed By [...] inhalatio n 02/22 completed Medicati on ID: [id number] [place] By Name: Heydi Mann nd [...] nasal spray 11/16 completed Medicati on ID: [id number] Pr escribed By Name: Heydi Mcgraw rd, [...] both nostrils 05/08 completed Medicati on ID: [id number] D uration Value: 30 Prescri bed By [...] Updated DateTime 05/08/2025 149.86 cm 30.5 kg/m2 00469.45 g 124/80 mm[Hg] Bertha Frost [place] - [facility] 05/08/2025 15:48:31 Social History None recorded. Functional [...] ICD10 Code Diagnosis IMO Codes Diagnosis Note [id number] GRISELDA MICHAELS MD [facility] [address] [address] 05/08/2025 15:01:28 05/08/2025 16:18:02 Bilateral tinnitus [id number] 102 H93.13 Today we discussed the pathophysi ology of tinnitus and the absence of consistent ly successful pharmacolo gic treatments for tinnitus. We discussed masking strategies to decrease awareness of the tinnitus, including using a white noise machine, music, Kann[employer] tinnitus thom or television . We discussed how exposure to loud noise can worsen tinnitus so I recommende d hearing protection . We also discussed other ways to potentiall y help reduce awareness of tinnitus including avoidance of caffeine, salty meals and NSAIDs. Sensorineu ral hearing loss of bilateral ears 040707426 H90.3 Audiologic al evaluation results: Right ear: Normal through 2 kHz sloping to a moderate sensorineu ral hearing loss with excellent word recognitio n. Left ear: Normal through 3 kHz sloping to a moderate sensorineu ral hearing loss with excellent word recognitio n. Tympanomet ry: Right Ear:Type A Left Ear:Type A [id number] Benjie TOMLINSON [facility] [address] [address] 05/08/2025 15:34:49 05/10/2025 00:25:58 Sensorineural hearing loss of bilateral ears 580631781 H90.3 Audiologic al evaluation results: Right ear: [...] ID Guarantor Name 05/08/2025 1 MEDICARE B-[place]: [employer] Kristy Li [id number] Kristy Li 05/08/2025 2 [place]: [facility] Kristy Lucie Li [id number] Kristyraegan FishLi Notes Date Note Type Note [...] discussed during the visit. GRISELDA MURDOCK MD [address] [place] [address], [place], [address], [facility] - [facility] 05/08/2025 16:36:29 05/08/2025 text/html Audiological Evaluation HPIReported by PatientHearing LossFor hearing loss perceived, patient reportshearing loss in both ears (no differences noted between ears). ARBEN BLAKE, AuD [address] [place] [address], [place], [address], [facility] - [facility] 05/08/2025 15:35:56 OBGyn Episode No OBEpisode recorded.
--- OUTSIDE RECORDS SUMMARY | 2025-05-29 12:30 | XMS_ITS | Encounter Summary ---
Author Organization [employer] Address [address] [facility] [address] [place] [address] Care Team Providers Care Account Executive Sales Representative Name Role Phone Unavailable Primary Care Provider Unavailabl e Reason for Visit * Reason Comments Med Refill Encounter Details Date Type Department Care Team (Late st Contact Info) Description 04/10/2024 Refill [facility] [address] [place] [address] Chet Wade DDS [address] [place] [address] Social History Tobacco Use Types Packs/Day Years [...]
--- OUTSIDE RECORDS SUMMARY | 2025-05-29 12:31 | XMS_ITS | Clinical Summary ---
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 2021 Active ipratropium (ATROVENT) 42 mcg (0.06 %) nasal spray Administer 2 sprays into affected nostril(s) 4 (four) times a day. Active meclizine (ANTIVERT) 25 mg tablet Take 1 tablet (25 mg total) by mouth every 8 (eight) hours if needed. 2021 Active montelukast (SINGULAIR) 10 mg tablet Take 1 tablet (10 mg total) by mouth. 2020 Active ondansetron (ZOFRAN) 4 mg tablet Take 1 tablet (4 mg total) by mouth every 8 (eight) hours if needed for nausea. for up to 30 days. 2020 Active triamcinolone (Nasal Allergy) 55 mcg nasal inhaler 2 sprays 1 (one) time each day. INTRANASALLY 2020 Active BIOTIN ORAL Take 3 tablets by mouth 1 (one) time each day. Biotin 5000 MCG Tab Active CHOLECALCIFEROL, VITAMIN D3, ORAL Take 1 tablet by mouth 1 (one) time each day. Cholecalciferol (Vitamin D) 50 MCG (2000 UT) Tab Active Dupixent Pen 300 mg/2 mL pen Inject 1 Syringe under the skin. Active sucralfate (CARAFATE) 1 gram tablet Take 1 tablet (1 g total) by mouth 4 (four) times a day. 360 tablet 3 2023 Active pregabalin (LYRICA) 225 mg capsule Take 1 capsule (225 mg total) by mouth 2 (two) times a day. Active DULoxetine (CYMBALTA) [address] capsule TAKE ONE CAPSULE IN THE MORNING AND EVENING 2023 Active Fasenra Pen 30 mg/mL auto-injector injection 2023 Active traZODone (DESYREL) 50 mg tablet TAKE 1/2 TO 1 TABLET AT BEDTIME NEEDED FOR SLEEP 2023 Active methocarbamoL (ROBAXIN) 750 mg tablet TAKE ONE TABLET THREE TIMES DAILY NEEDED FOR PAIN Active hydrOXYzine HCL (ATARAX) 25 mg tablet TAKE ONE TABLET TWICE DAILY NEEDED FOR ANXIETY 2023 Active lactobacillus combination no.4 (Probiotic) 3 billion cell capsule Take by mouth 2 (two) times a day. 2020 Active cyanocobalamin (VITAMIN B-12) 1,000 mcg tablet Take 3 tablets (3,000 mcg total) by mouth 2 (two) times a day. Active multivit-min/vincenzo us fumarate (MULTI VITAMIN ORAL) 0 Refills, Maintenance, 08/27/20 13:37:00 EST, Partial fill upon patient request if the prescription is for a schedule II opioid drug. 2020 Active NON FORMULARY Ortho digestsyme Active albuterol 2.5 mg /3 mL (0.083 %) nebulizer solution Take 3 mL (2.5 mg total) by nebulization every 6 (six) hours if needed for wheezing. 300 mL 11 08/06 Active albuterol 2.5 mg /3 mL (0.083 %) nebulizer solution USE ONE AMPULE USING A NEBULIZER EVERY 4 HOURS NEEDED FOR WHEEZING OR SHORTNESS OF BREATH 180 mL 2024 Active Restasis 0.05 % ophthalmic emulsion Administer [...] the next 30 min. 12 each 3 2024 Active Additional Information Patient not taking.Reported on 04/05/2025 calcium carbonate-vitamin D3 600 mg-10 mcg (400 unit) capsule Take 1 capsule by mouth 2 (two) times a day. 180 each 2 2024 Active atorvastatin (LIPITOR) 20 mg tablet Take 1 tablet (20 mg total) by mouth 1 (one) time each day. 90 tablet 3 2024 Active Additional Information Patient not taking.Reported on 04/05/2025 magnesium oxide 400 mg magnesium capsule Take 1 capsule by mouth at bedtime. 90 capsule 3 2024 Active tirzepatide, weight loss, (ZEPBOUND) 5 mg/0.5 mL injectionIndicatio ns:Obesity (BMI 30.0-34.9) Inject 0.5 mL (5 mg total) under the skin every 7 (seven) days. 2 mL 3 2024 Active Additional Information Patient not taking.Reason: Patient hasnt started, Reported on 04/05/2025 dilTIAZem CD (CARDIZEM CD) 120 mg 24 hr capsule Take 1 capsule (120 mg total) by mouth 1 (one) time each day. 90 each 12/05 Active HYDROMORPHONE 0.2 MG/ML [employer]AL OPIOID TOLERANT DOSING RULE Active Breztri Aerosphere 160-9-4.8 mcg/actuation HFA aerosol inhaler inhaler INHALE 2 PUFFS INTO THE LUNGS 2 TIMES DAILY FOR 30 DAYS. 10.7 each 11 2024 Active Ventolin HFA 90 mcg/actuation inhaler INHALE TWO PUFFS EVERY 4 HOURS NEEDED FOR COUGH OR FOR WHEEZING 18 g 2 2024 Active tirzepatide, weight loss, (ZEPBOUND) 2.5 mg/0.5 mL injectionIndicatio ns:Mixed hyperlipidemia,[place] hypertension,Obesi ty (BMI 30.0-34.9),Fibromy algia,Mild persistent asthma without complication,RAMOS on CPAP Inject 0.5 mL (2.5 mg total) under the skin every 7 (seven) days. 2 mL 3 2024 Active cholecalciferol (VITAMIN D-3) 50 mcg (2,000 unit) tablet TAKE ONE TABLET DAILY 90 tablet 3 2024 Active Trulance 3 mg tablet TAKE 1 TABLET BY MOUTH 1 TIME EACH DAY. 90 tablet 3 2024 Active pantoprazole (PROTONIX) 40 mg EC tablet Take 1 tablet (40 mg total) by mouth 2 (two) times a day. for 360 days. 180 each 3 05/12 plecanatide (TRULANCE) 3 mg tablet Take 1 tablet (3 mg total) by mouth 1 (one) time each day. 90 tablet 3 05/29 Discontinued amoxicillin (AMOXIL) 500 mg tabletIndications: H. pylori gastrointestinal tract infection Take 2 tablets (1,000 mg total) by mouth 2 (two) times a day for 14 days. 56 tablet 05/06 clarithromycin (BIAXIN) 500 mg tabletIndications: H. pylori gastrointestinal tract infection Take 1 tablet (500 mg total) by mouth 2 (two) times a day for 14 days. 28 each 05/06 Active Problems Problem Noted Date Diagnosed Date [...] RAMOS (obstructive sleep apnea) 10/13/2017 Overview (03/28/2024): [facility] Home Sleep Apnea Test: Date 11/22/2018; Wt [...] Department Care Team Description 05/01/2025 [address] [phone] Abhay Coppola MD 04/18/2025 Results Follow-Up Gastroenterology [address] [phone] Danica Park MD 04/15/2025 Telephone Internal Medicine [address] [phone] Tanja Larkin MD 04/05/2025 10:00 AM EDT Office Visit Internal Medicine [address] [phone] Tanja Larkin MD Gastroesophageal reflux disease without esophagitis (Primary Dx); Mixed hyperlipidemia; Primary hypertension; Obesity (BMI 30.0-34.9); Fibromyalgia; Mild persistent asthma without complication; RAMOS on CPAP 04/05/2025 Telephone Internal Medicine [address] [phone] Tanja Larkin MD 04/03/[address] [facility] [address] [facility] [address] [place] [address] Lázaro Mcguire MD 04/01/[address] [facility] [address] [place] [address] Lázaro Mcguire MD 03/29/2025 10:58 AM EDT - 03/29/2025 1:37 PM EDT Emergency [facility] Emergency [address] [place] [address] Chas Rodriguez MD Nonintractable headache, unspecified chronicity pattern, unspecified headache type (Primary Dx); Secondary hypertension Discharge Disposition: Home or Self Care 03/29/2025 Telephone Internal Medicine [facility] [address] [phone] Tanja Larkin MD 03/29/2025 Telephone Internal Medicine [address] [phone] Tanja Larkin MD 03/29/2025 Telephone Internal Medicine [address] [phone] Tanja Larkin MD 03/28/2025 3:52 PM EDT - 03/28/2025 4:59 PM EDT Emergency [facility] Emergency [address] [place] [address] Sarah Sage MD Acute pain of right shoulder (Primary Dx) Discharge Disposition: Home or Self Care 03/07/2025 9:54 AM EDT Anesthesia Event [facility] Endoscopy [address] [place] [phone] Carlitos Joseph MD 03/07/2025 8:54 AM EDT - 03/07/2025 11:59 PM EDT Hospital Encounter [facility] Endoscopy [address] [place] [address] Danica Park MD Steele, Matthew G, CRNA Gastroesophageal reflux disease without esophagitis; Pharyngeal dysphagia Discharge Disposition: Home or Self Care 03/04/2025 9:10 AM EDT Office Visit Gastroenterology [facility] [address] [phone] Daphnie Almanza PA Gastroesophageal reflux disease without esophagitis (Primary Dx); Esophageal stenosis; Chronic constipation 03/04/2025 Telephone Gastroenterology [facility] [address] [address] [place] [address] Daphnie Almanza PA from Last 3 Months Immunizations Immunization Administration Dates Next Due Hepatitis B (Kznoscz-H-Nyhlb , Recombivax HB-Adult) 19yo and older 11/07/2013,06/13/2013,05/09/2013 [...] from spine a few mths VAGINOSCOPY PROCEDURE: IA COLPOSCOPY CERVIX VAG LOOP ELTRD BX CERVIX; COMMENT: hx of abnormal pap smear EYE SURGERY PROCEDURE: IA TRABECULOPLASTY BY LASER SURGERY; COMMENT: SENG schneider/marisa ESOPHAGOGASTRODUODENOSCOPY 06/16/2012 PROCEDURE: IA ESOPHAGOGASTRODUODENOSCOPY TRANSORAL DIAGNOSTIC; COMMENT: normal ESOPHAGOGASTRODUODENOSCOPY 09/2018 PROCEDURE: IA ESOPHAGOGASTRODUODENOSCOPY TRANSORAL DIAGNOSTIC KNEE SURGERY 08/2020 Right PROCEDURE: HISTORICAL KNEE SURGERY; COMMENT: arthroscopic CHOLECYSTECTOMY PROCEDURE: IA LAPAROSCOPY SURG CHOLECYSTECTOMY COLONOSCOPY Medical History Medical History Date Comments Seasonal allergies DX:Seasonal a llergies Lumbago DX:Lumbago Cervicalgia DX:Cervicalgia Esophageal reflux DX:Esophageal reflux Sciatica DX:Sciatica Solitary pulmonary nodule 06/15/2013 DX:Merari itary pulmonary nodule RAMOS (obstructive sleep apnea) 10/13/2017 DX :RAMOS (obstructive sleep apnea); COMMENT: [facility] Home Sleep Apnea Test: Date 11/22/2018; Wt [...] your loved ones. For example, child care center administrator or elderly care for an older adult? [...] 9:00 AM EST Office Visit Pulmonology - [place] 175 [facility] [address] [place] [phone] Abhay Coppola MD [address] [place] [phone] 06/18/2025 8:40 AM EST Office Visit [facility] 154 [address] [facility] [address] [place] [phone] Marycarmen Georges NP [address] [place] [address] [address] [place] [address] 07/31/2025 8:50 AM EST Office Visit Gastroenterology - [address] [facility] [address] [place] [phone] Daphnie Almanza PA 299 [facility] [address] [place] [address] 09/03/2025 9:45 AM EDT Office Visit Internal Medicine - [place] 175 [facility] [address] [place] [address] Tanja Larkin MD [facility] [place] [address] Health Maintenance Due Date Last Done Comments [...] this topic Medical Devices Implanted Type 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 Device Identifier Shelf Expiration Date Model / Serial / Lot Joints Knee Joints Knee Right: Knee Procedures Procedure Name Priority Date/Time Associated Diagnosis Comments EXTERNAL XRAY REPORT 05/17/2025 EXTERNAL XRAY REPORT 05/17/2025 ECG ANNOTATED 03/30/2025 XR CHEST 2 VIEWS [...] mellitus Routine general medical examination at a [facility] care facility Screening for thyroid disorder Screening for lipoid disorders THYROID STIMULATING HORMONE WITH REFLEX TO FREE T4 AND FREE T3 Routine 03/12/2025 9:41 AM EDT Screening for diabetes mellitus Routine general medical examination at a [facility] care facility Screening for thyroid disorder Screening for lipoid disorders CBC AND DIFFERENTIAL Routine 03/12/2025 9:41 AM EDT Screening for diabetes mellitus Routine general medical examination at a [facility] care facility Screening for thyroid disorder Screening for lipoid disorders COMPREHENSIVE METABOLIC PANEL Routine 03/12/2025 9:41 AM EDT Screening for diabetes mellitus Routine general medical examination at a [facility] care facility Screening for thyroid disorder Screening [...] Gastroesophageal reflux disease without esophagitis Pharyngeal dysphagia MG MAMMO DIGITAL SCREENING W TINO BILAT Routine 11/20/2024 11:17 AM EDT Encounter for screening mammogram for breast cancer BD BONE DENSITY DXA AXIAL SKELETON Routine 11/08/2024 9:19 AM EDT Postmenopausal state HPV WITH REFLEX GENOTYPE Routine 10/26/2024 12:00 AM EDT Encounter for gynecological examination (general) (routine) without abnormal findings COLONOSCOPY Routine 07/24/2024 8:04 AM EST Hx of colonic polyps HEPATITIS C SCREENING Routine 05/17/2022 from Last 3 Months or Most Recently Relevant to Health Maintenance Results * External Xray Report (05/17/2025) Only the most recent of2 resultswithin the time period is included. Anatomical Region Laterality Modality Radiographic Shelbie ging us Provider [facility] IMG XR PROCEDURES Final Result * ECG-Annotated (03/30/2025) us Provider Onbase ECG ORDERABLES Final Result * XR Chest 2 Views (03/29/2025 11:06 AM EDT) Anatomical Region Laterality Modality Body Radiographic Shelbie ging 03/29/2025 11:1 6 AM EDT Impressions 03/29/2025 11:19 AM EDT No acute pulmonary disease. Linear scarring in the lingula, as also seen on 08/21/2024. Code 69676 -------- FINAL REPORT -------- Dictated By: Joseph Chaudhary Dictated Date: 03/29/2025 11:16 ET Assigned Physician: Joseph Chaudhary Reviewed and Electronically Signed By: Joseph Chaudhary Signed Date: 03/29/2025 11:19 ET Workstation ID: [id number] Transcribed By: Self Edit Transcribed Date: 03/29/2025 [...] the lingula, as also seenon 08/21/2024. Code 57335 -------- FINAL REPORT -------- Dictated By: Joseph Chaudhary Dictated Date: 03/29/2025 11:16 ET Assigned Physician: Joseph Chaudhary Reviewed and Electronically Signed By: Joseph Chaudhary Signed Date: 03/29/2025 11:19 ET Workstation ID: [id number] Transcribed By: Self Edit Transcribed Date: 03/29/2025 11:16 ET us Mica Roman MD IMG XR PROCEDURES Final Res ult * Troponin I high sensitivity (03/29/2025 10:49 AM EDT) High Sensitivity Troponin I <3 <=54 ng/L LAB CHEMISTRY METHOD 03/29/2025 11:32 AM EDT [facility] Blood Venous blood specimen / Unknown Venipuncture / Unknown 03/29/2025 10:49 AM EDT 03/29/2025 10:55 AM EDT Narrative [facility] - 03/29/2025 11:32 AM EDT High levels of biotin in samples may falsely decrease hsTroponin values. Use caution when interpreting hsTroponin results in patients taking biotin who exhibit renal impairment (eGFR <60) or in patients taking more than 20 mg/day of biotin. us Mica Roman MD LAB BLOOD ORDERABLES Final Result [facility] [address] [place] [address], * (ABNORMAL) CBC auto differential (03/29/2025 10:49 AM EDT) Only the most recent of2 resultswithin the time period is included. Pathologist [facility] WBC 9.2 4.8 - 10.8 K/mcL LAB HEMETOLOGY METHOD 03/29/2025 11:02 AM [facility] RBC 4.50 3.80 - 4.80 M/mcL LAB HEMETOLOGY METHOD 03/29/2025 11:02 AM [facility] Hemoglobin 12.7 11.5 - 16.0 g/dL LAB HEMETOLOGY METHOD 03/29/2025 11:02 AM [facility] Hematocrit 40.4 35.0 - 47.0 % LAB HEMETOLOGY METHOD 03/29/2025 11:02 AM [facility] MCV 89.2 79.0 - 98.0 FL LAB HEMETOLOGY METHOD 03/29/2025 11:02 AM [facility] MCH 28.0 27.0 - 32.0 pcg LAB HEMETOLOGY METHOD 03/29/2025 11:02 AM [facility] MCHC 31.4(L) 32.0 - 37.0 g/dL LAB HEMETOLOGY METHOD 03/29/2025 11:02 AM [facility] RDW 14.5 11.0 - 15.0 % LAB HEMETOLOGY METHOD 03/29/2025 11:02 AM [facility] Platelets 416(H) 130 - 400 K/mcL LAB HEMETOLOGY METHOD 03/29/2025 11:02 AM [facility] MPV 9.1 7.0 - 11.0 FL LAB HEMETOLOGY METHOD 03/29/2025 11:02 AM [facility] NRBC 0.0 <1.0 % LAB HEMETOLOGY METHOD 03/29/2025 11:02 AM [facility] NRBC Absolute 0.00 <0.10 K/mcL LAB HEMETOLOGY METHOD 03/29/2025 11:02 AM [facility] Neutrophils Relative 68.5 % LAB HEMETOLOGY METHOD 03/29/2025 11:02 AM [facility] Lymphocytes Relative 18.3 % LAB HEMETOLOGY METHOD 03/29/2025 11:02 AM [facility] Monocytes Relative 11.4 % LAB HEMETOLOGY METHOD 03/29/2025 11:02 AM [facility] Eosinophils Relative 1.0 % LAB HEMETOLOGY METHOD 03/29/2025 11:02 AM [facility] Basophils Relative 0.5 % LAB HEMETOLOGY METHOD 03/29/2025 11:02 AM [facility] Immature Granulocytes Relative 0.3 % LAB HEMETOLOGY METHOD 03/29/2025 11:02 AM [facility] Neutrophils Absolute 6.33 1.50 - 7.00 K/mcL LAB HEMETOLOGY METHOD 03/29/2025 11:02 AM [facility] Lymphocytes Absolute 1.69 1.00 - 5.00 K/mcL LAB HEMETOLOGY METHOD 03/29/2025 11:02 AM [facility] Monocytes Absolute 1.05(H) 0.20 - 1.00 K/mcL LAB HEMETOLOGY METHOD 03/29/2025 11:02 AM [facility] Eosinophils Absolute 0.09 0.00 - 0.50 K/mcL LAB HEMETOLOGY METHOD 03/29/2025 11:02 AM EDT [facility] Basophils Absolute 0.05 0.00 - 0.20 K/mcL LAB HEMETOLOGY METHOD 03/29/2025 11:02 AM EDT [facility] Immature Granulocytes Absolute 0.03 0.00 - 0.03 K/[facility] LAB HEMETOLOGY METHOD 03/29/2025 11:02 AM EDT [facility] Blood Venous blood specimen / Unknown Venipuncture / Unknown 03/29/2025 10:49 AM EDT 03/29/2025 10:55 AM EDT Mica Roman MD LAB BLOOD ORDERABLES Final Result Performing Organization Address City/[facility]/ZIP Co de Phone Number [facility] [address] [place] [address], [place] [phone] * B-type natriuretic peptide (03/29/2025 10:49 AM EDT) BNP 12 <=100 pcg/mL LAB CHEMISTRY METHOD 03/29/2025 11:58 AM EDT [facility] Blood Venous blood specimen / Unknown Venipuncture / Unknown 03/29/2025 10:49 AM EDT 03/29/2025 10:55 AM EDT Mica Roman MD LAB BLOOD ORDERABLES Final Result [facility] [address] [place] [address], [place] [phone] * Magnesium (03/29/2025 10:49 AM EDT) Magnesium 2.4 1.9 - 2.6 mg/dL LAB CHEMISTRY METHOD 03/29/2025 11:18 AM EDT [facility] Blood Venous blood specimen / Unknown Venipuncture / Unknown 03/29/2025 10:49 AM EDT 03/29/2025 10:55 AM EDT Mica Roman MD LAB BLOOD ORDERABLES Final Result Performing Organization Address [facility] Co de Phone Number [facility] [address] [place] [address], [place] [phone] * Lipase (03/29/2025 10:49 AM EDT) [facility] Lipase 24 13 - 75 unit/L LAB CHEMISTRY METHOD 03/29/2025 11:18 AM EDT [facility] Blood Venous blood specimen / Unknown Venipuncture / Unknown 03/29/2025 10:49 AM EDT 03/29/2025 10:55 AM EDT Mica Roman MD LAB BLOOD ORDERABLES Final Result Performing Organization Address [facility] Phone Number [facility] [address] [place] [address], [place] [phone] * ECG 12 lead (03/29/2025 10:46 AM EDT) [facility] Ventricular Rate ECG 85 BPM GEMUSE Atrial Rate 85 BPM GEMUSE P-R Interval 158 ms GEMUSE QRS Duration 86 ms GEMUSE Q-T Interval 380 ms GEMUSE QTc 452 ms GEMUSE P Wave [place] 32 degrees GEMUSE R [place] -18 degrees GEMUSE T [place] 9 degrees GEMUSE ECG Interpretation Normal sinus rhythm Normal ECG When compared with ECG of 21-AUG-2024 18:32, No significant change was found Confirmed by DIANDRA SANCHES ([id number]) on 03/30/2025 11:07:15 AM GEMUSE 03/29/2025 10:4 6 AM EDT 03/30/2025 11:07 AM EDT Mica Roman MD ECG ORDERABLES Final Resul t Performing Organization Address [facility] Co de Phone Number GEMUSE * XR Shoulder 2+ Views Right [...] Signed Date: 03/28/2025 17:08 ET Workstation ID: [id number] Transcribed By: Self Edit Transcribed Date: 03/28/2025 [...] Signed Date: 03/28/2025 17:08 ET Workstation ID: [id number] Transcribed By: Self Edit Transcribed Date: 03/28/2025 16:55 ET Sarah Sage MD IMG XR PROCEDURES Final Result * Thyroid stimulating hormone with reflex to free t4 and free t3 (03/12/2025 9:41 AM EDT) TSH 1.41 0.40 - 4.00 mcIU/mL LAB CHEMISTRY METHOD 03/12/2025 2:[address] [facility] Blood Venous blood specimen / Unknown Venipuncture / Unknown 03/12/2025 9:41 AM EDT 03/12/2025 12:11 PM EDT Maddi FUNEZ LAB BLOOD ORDERABLES Final Resul t [facility] [address] [place] [address], [place] [phone] * (ABNORMAL) Lipid panel with reflex to direct LDL (03/12/2025 9:41 AM EDT) Cholesterol 267(H) 0 - 200 mg/dL LAB CHEMISTRY METHOD 03/12/2025 2:02 PM EDT [facility] Comment:Results verified by repeat testing Triglycerides 145 0 - 150 mg/dL LAB CHEMISTRY METHOD 03/12/2025 2:02 PM EDT [facility] HDL 75 >=40 mg/dL LAB CHEMISTRY METHOD 03/12/2025 2:02 PM EDT [facility] LDL Calculated 163(H) 0 - 100 mg/dL LAB CHEMISTRY METHOD 03/12/2025 2:02 PM EDT [facility] Comment:Estimated LDL Calcul ated using equation: Total cholesterol - HDL cholesterol - (Triglycerides/5) VLDL Cholesterol Oliverio 29 mg/dL LAB CHEMISTRY METHOD 03/12/2025 2:02 PM EDT [facility] Non HDL Chol. (LDL+VLDL) 192(H) <145 mg/dL LAB CHEMISTRY METHOD 03/12/2025 2:02 PM EDT [facility] Chol/HDL Ratio 3.6 0.0 - 4.4 LAB CHEMISTRY METHOD 03/12/2025 2:02 PM EDT [facility] Blood Venous blood specimen / Unknown Venipuncture / Unknown 03/12/2025 9:41 AM EDT 03/12/2025 12:11 PM EDT us Maddi FUNEZ LAB BLOOD ORDERABLES Final Resul t [facility] [address] [place] [address], [place] [phone] * Hemoglobin A1c (03/12/2025 9:41 AM EDT) [facility] Hemoglobin A1C 5.3 <6.5 % LAB CHEMISTRY METHOD 03/12/2025 2:26 PM EDT [facility] Mean Bld Glu Estim. 105 mg/dL LAB CHEMISTRY METHOD 03/12/2025 2:26 PM EDT [facility] Blood Venous blood specimen / Unknown Venipuncture / Unknown 03/12/2025 9:41 AM EDT 03/12/2025 12:14 PM EDT Maddi FUNEZ LAB BLOOD ORDERABLES Final Resul t [facility] [address] [place] [address], [place] [phone] * (ABNORMAL) Comprehensive metabolic panel (03/12/2025 9:41 AM EDT) [facility] Sodium 139 133 - 145 mmol/L LAB CHEMISTRY METHOD 03/12/2025 1:51 PM [facility] Potassium 3.5 3.5 - 5.5 mmol/L LAB CHEMISTRY METHOD 03/12/2025 1:51 PM [facility] Chloride 106 96 - 110 mmol/L LAB CHEMISTRY METHOD 03/12/2025 1:51 PM T [facility] CO2 26 21 - 32 mmol/L LAB CHEMISTRY METHOD 03/12/2025 1:51 PM [facility] Anion Gap 7 3 - 11 LAB CHEMISTRY METHOD 03/12/2025 1:51 PM [facility] Glucose 113(H) 70 - 100 mg/dL LAB CHEMISTRY METHOD 03/12/2025 1:51 PM [facility] BUN 19 5 - 25 mg/dL LAB CHEMISTRY METHOD 03/12/2025 1:51 PM [facility] Creatinine 0.69 0.50 - 1.10 mg/dL LAB CHEMISTRY METHOD 03/12/2025 1:51 PM [facility] eGFR 102 >=60 mL/min/1. 73m2 LAB CHEMISTRY METHOD 03/12/2025 1:51 PM [facility] Comment:Calculation based on the Chronic Kidney Disease Epidemiology Collaboration (CKD-EPI) equation refit without adjustment for race. BUN/Creatinine Ratio 27.5 LAB CHEMISTRY METHOD 03/12/2025 1:51 PM [facility] Calcium 8.9 8.5 - 10.5 mg/dL LAB CHEMISTRY METHOD 03/12/2025 1:51 PM [facility] AST (SGOT) 13 10 - 42 unit/L LAB CHEMISTRY METHOD 03/12/2025 1:51 PM [facility] LAB ALT (SGPT) 24 10 - 60 unit/L LAB CHEMISTRY METHOD 03/12/2025 1:51 PM [facility] LAB Alkaline Phosphatase 100 42 - 121 unit/L LAB CHEMISTRY METHOD 03/12/2025 1:51 PM [facility] LAB Total Protein 6.7 6.0 - 8.0 g/dL LAB CHEMISTRY METHOD 03/12/2025 1:51 PM [facility] LAB Albumin 3.6 3.2 - 5.0 g/dL LAB CHEMISTRY METHOD 03/12/2025 1:51 PM [facility] LAB Total Bilirubin 0.3 0.0 - 1.4 mg/dL LAB CHEMISTRY METHOD 03/12/2025 1:51 PM [facility] LAB Blood Venous blood specimen / Unknown Venipuncture / Unknown 03/12/2025 9:41 AM EDT 03/12/2025 12:11 PM EDT Maddi FUNEZ LAB BLOOD ORDERABLES Final Resul t [facility] LAB [address] [place] [address], * EGD Dilation; Anesthesia - MAC; [facility] ENDOSCOPY (03/07/2025 10:14 AM EDT) Anatomical Region Laterality Modality Endoscopy 03/07/2025 9:59 AM EDT Impressions 03/07/2025 10:15 AM EDT - Normal examined duodenum. - Gastritis. Biopsied. - Small hiatal hernia. Recommendation: - Discharge patient to home. - Await pathology results. - Return to GI clinic PRN. Narrative 03/07/2025 10:15 AM EDT [facility] GI Patient Name: Kristy Li [...] verified by the physician, the nurse, the customer service trainer and the traffic technician in the pre-procedure area in the [...] was present. Procedure Code(s): --- Professional --- 81168, Esophagogastroduodenoscopy, flexible, transoral; with insertion of guide wire followed by passage of dilator(s) through esophagus over guide wire 06160, 59, Esophagogastroduodenoscopy, flexible, transoral; with biopsy, single or multiple Diagnosis Code(s): --- Professional --- K29.70, Gastritis, unspecified, without bleeding K44.9, Diaphragmatic hernia without obstruction or gangrene R13.10, Dysphagia, unspecified CPT copyright 2020 [employer]. All rights reserved. The codes documented in this report are preliminary and upon health information coder review may be revised to meet current compliance requirements. Danica Park MD 03/07/2025 10:15:15 AM This report has been signed electronically.Danica Park MD Number of Addenda: 0 Note Initiated On: 03/07/2025 9:59 AM Scope In: Scope Out: Endoscopy Department at [facility] - [address] [place] [phone] Procedure Note Danica Park MD - 03/07/2025 [facility] GI Patient Name: Kristy Li [...] the physician, the nurse, theanesthetist and the traffic technician in the pre-procedure area in the [...] was present. Procedure Code(s): --- Professional --- 48863, Esophagogastroduodenoscopy, flexible, transoral; with insertion of guide wire followed by passage of dilator(s) through esophagus over guidewire 70545, 59, Esophagogastroduodenoscopy, flexible, transoral; with biopsy, single or multiple Diagnosis Code(s): --- Professional --- K29.70, Gastritis, unspecified, without bleeding K44.9, Diaphragmatic hernia without obstruction or gangrene R13.10, Dysphagia, unspecified CPT copyright 2020 [employer]. All rights reserved. The codes documented in this report are preliminary and upon health information coder reviewmay be revised to meet current compliance requirements. Danica Park MD 03/07/2025 10:15:15 AM This report has been signed electronically.Danica Park MD Number of Addenda: 0 Note Initiated On: 03/07/2025 9:59 AM Scope In: Scope Out: Endoscopy Department at [facility] - [address] [place] [phone] IMPRESSION: - Normal examined duodenum. - Gastritis. Biopsied. - Small hiatal hernia. Recommendation: - Discharge patient to home. - Await pathology results. - Return to GI clinic PRN. us Danica Park MD GI~PROCEDURE ORDERABLES Fin al Result * Tissue exam (03/07/2025 10:04 AM EDT) Addendum Immunohistochemistry : Helicobacter pylori: negative. 10:[address] [facility] Addendum electronically signed by Vi Soler MD on 03/11/2025 at 1059 EDT Final Diagnosis A. Stomach, gastric biopsy: - Gastric antral mucosa with focal acute inflammation. Note: Immunostain for Helicobacter pylori will be performed to rule out Helicobacter pylori infection in the setting of focal acute gastritis as Helicobacter pylori organisms are not morphologically apparent on H&E stained slide. 10:59 AM EDT [facility] LAB at 1013 EDT Gross Description A. Stomach, gastric biopsy: Labeled stomach gastric . Received in formalin are three irregular preciado mucosal tissue fragments, each measuring approximately 0.4 cm in greatest dimension, which are wrapped in paper and submitted in toto in one cassette, three pieces, multiple levels on one slide. EUSEBIO 10:59 AM EDT [facility] Disclaimer NOTE: The immunohistochemical tests and in situ hybridization tests were developed and their performance characteristics were determined by [facility] Histology Laboratory. They have not been cleared [...] fixed and paraffin embedded. 10:59 AM EDT [facility] Tissue Stomach structure / Unknown 03/07/2025 10:04 AM EDT 03/07/2025 12:15 PM EDT us Danica Park MD LAB PATHOLOGY ORDERABLES Ed ited Result - Final [facility] [address] [place] [address], * MG Mammo Digital Screening w Tino [...] for biopsy. PQRI CPT II 3342F Code 24480, 37137 PQRI 225 CPT II 7025F TISSUE DENSITY: There are scattered areas of fibroglandular density. (BI-RADS category B) IMPRESSION: Benign. BI-RADS CATEGORY: 2 - BENIGN RECOMMENDATION: Screening bilateral mammogram is recommended in 1 year. Mammo Location: [facility], [facility], [address] [place] [address] -------- FINAL REPORT -------- Dictated By: Joseph Chaudhary Dictated Date: 11/20/2024 11:16 ET Assigned Physician: Joseph Chaudhary Reviewed and Electronically Signed By: Joseph Chaudhary Signed Date: 11/20/2024 11:19 ET Workstation ID: [id number] Transcribed By: Self Edit Transcribed Date: 11/20/2024 11:16 ET Narrative 11/20/2024 11:19 AM EDT CLINICAL: The patient is a 54 years Female presenting for routine screening mammography. COMPARISON: Most recently 11/18/2023 and most remotely 04/16/2017. TECHNIQUE: Full-field digital mammography of the breasts bilaterally consisting of tomosynthesis in MLO and CC projection is performed in the Galleone 2000-D unit. Computer aided detection utilizing the [...] MLO and CC projection is performed in theGE Senographe 2000-D unit. Computer aided detection utilizing the yWorldystem was utilized. FINDINGS: The breasts are again [...] for biopsy. PQRI CPT II 3342F Code 93019, 37836 PQRI 225 CPT II 7025F TISSUE DENSITY: There are scattered areas of fibroglandular density.(BI-RADS category B) IMPRESSION: Benign. BI-RADS CATEGORY: 2 - BENIGN RECOMMENDATION: Screening bilateral mammogram is recommended in 1 year. Mammo Location: [facility], [facility], [address] [place] [phone] -------- FINAL REPORT -------- Dictated By: Joseph Chaudhary Dictated Date: 11/20/2024 11:16 ET Assigned Physician: Joseph Chaudhary Reviewed and Electronically Signed By: Joseph Chaudhary Signed Date: 11/20/2024 11:19 ET Workstation ID: [id number] Transcribed By: Self Edit Transcribed Date: 11/20/2024 [...] probability of hip fracture of 0.9%. Code 55256 -------- FINAL REPORT -------- Dictated By: Joseph Chaudhary Dictated Date: 11/08/2024 11:55 ET Assigned Physician: Joseph Chaudhary Reviewed and Electronically Signed By: Joseph Chaudhary Signed Date: 11/08/2024 11:56 ET Workstation ID: [id number] Transcribed By: Self Edit Transcribed Date: 11/08/2024 [...] density of the femurs bilaterally is 0.886 gm/ok3gibpz is 88% of that of young normals [...] probability of hip fracture of 0.9%. Code 54573 -------- FINAL REPORT -------- Dictated By: Joseph Chaudhary Dictated Date: 11/08/2024 11:55 ET Assigned Physician: Joseph Chaudhary Reviewed and Electronically Signed By: Joseph Chaudhary Signed Date: 11/08/2024 11:56 ET Workstation ID: [id number] Transcribed By: Self Edit Transcribed Date: 11/08/2024 11:55 ET Tanja Larkin MD IMG DXA PROCEDURES Final Resul t * HPV with reflex genotype (10/26/2024 12:00 AM EDT) HPV Negative Negative LAB MICROBIOLOGY METHOD 10/29/2024 3:58 PM EDT [facility] Brushing/Spatula Cervix uteri structure / Unknown 10/26/2024 10/29/2024 6:20 AM EDT Yenni Sandoval MD LAB MOLECULAR DIAGNOSTIC S ORDERABLES Final Result [facility] [address] [place] [address], * COLONOSCOPY Anesthesia - MAC; [facility] ENDOSCOPY (07/24/2024 8:04 AM EST) Anatomical Region Laterality Modality Endoscopy 07/24/2024 7:48 AM EST Impressions 07/24/2024 8:05 AM EST - Internal hemorrhoids. - The examination was otherwise normal. - No specimens collected. Recommendation: - Discharge patient to home. - Repeat colonoscopy in 10 years for surveillance. Narrative 07/24/2024 8:05 AM EST [facility] GI Patient Name: Kristy Li [...] verified by the physician, the nurse, the customer service trainer and the traffic technician in the pre-procedure area in the [...] history of colonic polyps CPT copyright 2020 [employer]. All rights reserved. The codes documented in this report are preliminary and upon health information coder review may be revised to meet current compliance requirements. Danica Park MD 07/24/2024 8:05:30 AM This report has been signed electronically.Danica Park MD Number of Addenda: 0 Note Initiated On: 07/24/2024 7:48 AM Scope Withdrawal Time: 0 hours 6 minutes 20 seconds Scope In: 7:53:45 AM Scope Out: 8:04:47 AM Endoscopy Department at [facility] - [address] [place] [phone] Procedure Note Danica Park MD - 07/24/2024 [facility] GI Patient Name: Kristy Li [...] the physician, the nurse, theanesthetist and the traffic technician in the pre-procedure area in the [...] history of colonic polyps CPT copyright 2020 [employer]. All rights reserved. The codes documented in this report are preliminary and upon health information coder reviewmay be revised to meet current compliance requirements. Danica Park MD 07/24/2024 8:05:30 AM This report has been signed electronically.Danica Park MD Number of Addenda: 0 Note Initiated On: 07/24/2024 7:48 AM Scope Withdrawal Time: 0 hours 6 minutes 20 seconds Scope In: 7:53:45 AM Scope Out: 8:04:47 AM Endoscopy Department at [facility] - [address] [place] [phone] IMPRESSION: - Internal hemorrhoids. - The examination was otherwise normal. - No specimens collected. Recommendation: - Discharge patient to home. - Repeat colonoscopy in 10 years forsurveillance. Danica Park MD GI~PROCEDURE ORDERABLES Fin al Result * Hepatitis C Screening (05/17/2022) Hepatitis C Screening Abstracted Historical Provider HEALTH MAINTENANCE Final Result from Last 3 Months or Most Recently Relevant to Health Maintenance Insurance [facility] MEDICARE MEDICARE MEDICAID [place] Care Teams Transit Mixer Operator Relationship Specialty Start Date End Date Tanja Larkin MD [address] [facility] [address] [place] [address] PCP - General Internal Medicine 05/04/24
--- OUTSIDE RECORDS SUMMARY | 2025-05-29 12:31 | XMS_ITS | Encounter Summary ---
Author Organization [facility] Address [address] [place] [address] Care Team Providers Care Time Broker Name Role Phone Tanja Larkin MD Primary Care Provider [phone] Encounter Details Date Type Department Care Team (Late st Contact Info) Description 02/26/2025 Lab Requisition [facility] - Main Lab 299 [facility] [place] [phone] Yenni Sandoval MD 299 [facility] [address] [place] [phone] Urinary tract infection, site not specified; Acute [...] for your loved ones. For example, child protective services social worker or elderly care for an older [...] 9:00 AM EST Office Visit Pulmonology - [place] 175 [facility] 200 [place] [phone] Abhay Coppola MD [address] [place] [phone] 06/18/2025 8:40 AM EST Office Visit [facility] - [facility] [address] [facility] [address] [place] [phone] Marycarmen Georges NP [address] [place] [address] Dr [address] [place] [address] 07/31/2025 8:50 AM EST Office Visit Gastroenterology - 299 [facility] 299 [facility] [address] [place] [phone] Daphnie Almanza PA 299 [facility] [address] [place] [address] 09/03/2025 9:45 AM EDT Office Visit Internal Medicine - [address] [place] [address] Tanja Larkin MD [address] [place] [phone] documented as of this encounter Procedures Procedure [...] reflex microscopic (02/26/2025 12:00 AM EDT) Specific [place] Urine 1.022 1.003 - 1.030 LAB URINALYSIS - AUTOMATED METHOD 02/26/2025 6:27 PM [facility] LAB pH, Urine 6.0 5.0 - 8.0 pH LAB URINALYSIS - AUTOMATED METHOD 02/26/2025 6:27 PM [facility] Leukocytes, Urine Trace(A) Negative LAB URINALYSIS - AUTOMATED METHOD 02/26/2025 6:27 PM [facility] Nitrite, Urine Negative Negative LAB URINALYSIS - AUTOMATED METHOD 02/26/2025 6:27 PM [facility] Protein, Urine Negative <=Trace mg/dL LAB URINALYSIS - AUTOMATED METHOD 02/26/2025 6:27 PM [facility] Glucose, Urine Negative Negative mg/dL LAB URINALYSIS - AUTOMATED METHOD 02/26/2025 6:27 PM [facility] Ketones, Urine Trace(A) Negative mg/dL LAB URINALYSIS - AUTOMATED METHOD 02/26/2025 6:27 PM [facility] Urobilinogen, Urine 0.2 0.2 - 1.0 mg/dL LAB URINALYSIS - AUTOMATED METHOD 02/26/2025 6:27 PM [facility] Bilirubin, Urine Negative Negative LAB URINALYSIS - AUTOMATED METHOD 02/26/2025 6:27 PM [facility] Blood, Urine Negative Negative LAB URINALYSIS - AUTOMATED METHOD 02/26/2025 6:27 PM [facility] RBC, Urine 3.8 0 - 4 /HPF LAB URINALYSIS - AUTOMATED METHOD 02/26/2025 6:27 PM [facility] WBC, Urine 3.3 0 - 4 /HPF LAB URINALYSIS - AUTOMATED METHOD 02/26/2025 6:27 PM [facility] Squamous Epithelial, Urine 43 0 - 60 /LPF LAB URINALYSIS - AUTOMATED METHOD 02/26/2025 6:27 PM [facility] Bacteria, Urine Negative Negative /HPF LAB URINALYSIS - AUTOMATED METHOD 02/26/2025 6:27 PM [facility] Hyaline Casts, Urine 2.0 0 - 3 /LPF LAB URINALYSIS - AUTOMATED METHOD 02/26/2025 6:27 PM [facility] Urine Urine specimen obtained by clean catch procedure / Unknown 02/26/2025 02/26/2025 6:09 PM EDT us Yenni Sandoval MD LAB URINE ORDERABLES Fin al Result [facility] [address] [place] [address], [place] [phone] * Vaginitis pathogens molecular study (02/26/2025 12:00 AM EDT) Trichomonas vaginalis Negative Negative 02/27/2025 10:31 AM EDT [facility] Gardnerella vaginalis Negative Negative 02/27/2025 10:31 AM EDT [facility] Ann Species Negative Negative 10:31 AM EDT [facility] Swab Vaginal structure / Unknown 02/26/2025 02/26/2025 6:09 PM EDT us Yenni Sandoval MD LAB MICROBIOLOGY - GENER AL ORDERABLES Final Result Performing Organization Address City/[facility]/ZIP Co de Phone Number [facility] [address] [place] [address], * Culture urine (02/26/2025 12:00 AM EDT) Culture, Urine <10,000 cfu/mL Mixed bacterial miguel 02/27/2025 1:26 PM EDT [facility] Urine Urine specimen obtained by clean catch procedure / Unknown 02/26/2025 02/26/2025 6:09 PM EDT us Yenni Sandoval MD LAB MICROBIOLOGY - GENER AL ORDERABLES Final Result [facility] [address] [place] [address], [place] [phone] documented in this encounter Visit Diagnoses Diagnosis Urinary tract infection, site not specified Acute vaginitis Unspecified vaginitis and vulvovaginitis documented in this encounter Additional Health Concerns Assessment Noted Time PHQ-9 Depression Total Score: 19 03/2 025 3:44 PM EST documented as of this encounter Care Teams Time Broker Relationship Specialty Start Date End Date Tanja Larkin MD [address] [phone] PCP - General Internal Medicine 05/04/24 documented as of this encounter
--- OUTSIDE RECORDS SUMMARY | 2025-05-29 12:31 | XMS_ITS | Patient Health Record ---
Author Organization [facility] [address] Address [address] [place] [address] Care Team Providers Care Paint Preparer Name Role Phone JOE COOLEY Primary Care Provider SADAF Son Unavailable [phone] Maddi Pérez Unavailable [phone] Allergies Allergen (clinical drug ingredient) Drug/Non Drug Allergy documented on EMR Reaction Allergy Type Onset Date Status acetaminophen / oxycodone Percocet Unknown Drug Allergy Active codeine Codeine Unknown Drug Allergy Active ibuprofen Ibuprofen Unknown Drug Allergy Active Results Component Value Reference Range Flag Notes CBC WITH AUTO DIFFERENTIAL Reviewed date:03/12/2025 12:29:15 [...] K/mcL Immature Granulocytes Absolute 0.02 0.00-0.03 K/mcL LIPID PANEL WITH REFLEX TO D IRECT LDL Reviewed date:03/12/2025 03:09:10 PM Interpretation: Performing Lab: Notes/Report: Cholesterol 267 0-200 mg/dL H Results veri fied by repeat testing Triglycerides 145 0-150 mg/dL HDL 75 >=40 mg/dL LDL Calculated 163 0-100 mg/dL H Estimated LDL Calculated using equation: Total cholesterol - HDL cholesterol - (Triglycerides/5) VLDL Cholesterol Oliverio 29 Non HDL Chol. (LDL+VLDL) 192 <145 mg/dL H Chol/HDL Ratio 3.6 0.0-4.4 COM[address]IVE METABOLIC PANE L Reviewed date:03/12/2025 01:56:31 [...] 3.2-5.0 g/dL Total Bilirubin 0.3 0.0-1.4 mg/dL THYROID STIMULATING HORMONE WITH REFLEX TO FREE T4 AND FREE T3 Reviewed date:03/12/2025 03:08:42 PM Interpretation: Performing Lab: Notes/Report: TSH 1.41 0.40-4.00 mcIU/mL HEMOGLOBIN A1C Reviewed date:03/12/2025 03:09:17 PM Interpretation: Performing Lab: Notes/Report: Hemoglobin A1C 5.3 <6.5 % Mean Bld Glu Estim. 105 Reason For Referral No Information Medications Medication [...] Notes Problem Obesity due to excess calories (610191835) Other obesity due to excess calories (E66.09) Active confirmed Problem Overweight (506890818) Overweight (E66.3) Active confirmed Problem Anxiety disorder (171315167) Anxiety disorder, unspecified (F41.9) Active confirmed Problem Fibromyalgia (885972768) Fibromyalgia (M79.7) Active confirmed Problem Essential hypertension (58823959) Essential hypertension (I10) Active confirmed Problem BMI 25-29 - overweight (953563051) Body mass index [BMI] 29.0-29.9, adult (Z68.29) Active confirmed Problem Body mass index 30.00 to 34.99 (489498984328114 ) Body mass index [BMI] 32.0-32.9, adult (Z68.32) Active confirmed Problem Body mass index 30.00 to 34.99 (759062693030897 ) BMI 31.0-31.9,adult (Z68.31) Active confirmed Problem Depression (018812923) Depression, unspecified (F32.A) Active confirmed Problem Obesity (407575679) Obesity (E66.9) Active confirmed Problem History of asthma (522307732) History of asthma (Z87.09) Active confirmed Vital Signs Heart Rate 71 /min 03/12/2025 Oximetry 99 % 03/12/2025 Blood pressure diastolic 80 mm Hg 03/12/2025 Height 59 in 03/12/2025 Blood pressure systolic 128 mm Hg 03/12/2025 Weight 155.4 lbs 03/12/2025 BMI 31.38 kg/m2 03/12/2025 Encounters Encounter Location Date Provider Diagnosis [facility] [address] [address] 06/13/2024 Maddi Pérez Overweight E66.3 ; B [place] 28.0-28.9,adult Z68.28 ; Essential hypertension I10 ; Anxiety disorder, unspecified F41.9 ; Depression, unspecified F32.A ; Fibromyalgia M79.7 and Weight loss counseling, encounter for Z71.3 [facility] [address] [address] 03/12/2025 Maddi Svrcek Obesity E66.9 ; BMI 31.0-31.9,adult Z68.31 ; Essential hypertension I10 ; Anxiety disorder, unspecified F41.9 ; Depression, unspecified F32.A ; Fibromyalgia M79.7 and Weight loss counseling, encounter for Z71.3 [facility] [address] [address] 05/31/2024 Maddi Svrcek [facility] [address] [place] [address] 03/06/2025 Maddi Svrcek [facility] [address] [place] [address] [place] [phone] 03/08/2025 SADAF BORHOT [facility] [address] [place] [address] 03/11/2025 SADAF BORHOT [facility] [address] [address] 03/12/2025 Maddi Svrcek Other obesity due to excess calories E66.[address] [facility] [address] [place] [address] 03/20/2025 SADAF BORHOT [facility] [address] 04/10/2025 Maddi Svrcek Assessments Encounter Date [...] Dictation was accomplished with the use of [employer] voice recognition software, prone to medical [...] Dictation was accomplished with the use of [employer] voice recognition software, prone to medical [...] Dictation was accomplished with the use of [employer] voice recognition software, prone to medical [...] Dictation was accomplished with the use of [employer] voice recognition software, prone to medical [...] Dictation was accomplished with the use of [employer] voice recognition software, prone to medical [...] Dictation was accomplished with the use of [employer] voice recognition software, prone to medical [...] Dictation was accomplished with the use of [employer] voice recognition software, prone to medical [...] Dictation was accomplished with the use of [employer] voice recognition software, prone to medical [...] Dictation was accomplished with the use of [employer] voice recognition software, prone to medical [...] Dictation was accomplished with the use of [employer] voice recognition software, prone to medical [...] Dictation was accomplished with the use of [employer] voice recognition software, prone to medical [...] Dictation was accomplished with the use of [employer] voice recognition software, prone to medical [...] Dictation was accomplished with the use of [employer] voice recognition software, prone to medical [...] Dictation was accomplished with the use of [employer] voice recognition software, prone to medical [...] Insured Coverage Start Date Coverage End Date [facility] [address] [place] [address] [id number] Kristy Li Self - patient is the insured Medical (General) History Medical History History ICD Code seasonal allergies hypertension hypercholesterolemia asthma weight gain/loss gallbladder disease Arthritis heart murmur anxiety depression hearing loss Surgical History Surgery Date(Month/Year) cholecystectomy 11/28/23 biliary dyskinesia raised her bladder right TKR 12/2024
--- OUTSIDE RECORDS SUMMARY | 2025-05-29 12:31 | XMS_ITS | Encounter Summary ---
Author Organization [facility] Address [address] [place] [address] Care Team Providers Care Student Teacher Name Role Phone Tanja Larkin MD Primary Care Provider [phone] Encounter Details Date Type Department Care Team ([facility] Contact Info) Description 04/18/2025 Results Follow-Up Gastroenterology - [place] 175 [facility] 175 [facility] 200 [place] [phone] Danica Park MD 299 [facility] 419 [place] [address] Social History Tobacco Use Types Packs/Day Years [...] for your loved ones. For example, children's book author or elderly care for an older adult? [...] 9:00 AM EST Office Visit Pulmonology - [place] 175 [facility] 200 [place] [phone] Abhay Coppola MD [address] [place] [phone] 06/18/2025 8:40 AM EST Office Visit [facility] - [facility] 154 300 [facility] 154 [place] [phone] Marycarmen Georges NP [address] [place] [address] [place] [phone] 07/31/2025 8:50 AM EST Office Visit Gastroenterology - [address] [place] 299 [facility] [address] [place] [phone] Daphnie Almanza PA 299 [facility] [address] [place] [address] 09/03/2025 9:45 AM EDT Office Visit Internal Medicine - [place] [address] [place] [phone] Tanja Larkin MD [address] [place] [phone] documented as of this encounter Visit Diagnoses Not on filedocumented in this encounter Additional Health Concerns Assessment Noted Time PHQ-9 Depression Total Score: 19 08/29/ 025 3:44 PM EST documented as of this encounter Care Teams Student Teacher Relationship Specialty Start Date End Date Tanja Larkin MD 175 [facility] 200 [place] [phone] PCP - General Internal Medicine 05/04/24 documented as of this encounter
--- OUTSIDE RECORDS SUMMARY | 2025-05-29 12:31 | XMS_ITS | Encounter Summary ---
Author Organization [facility] [place] [address] Care Team Providers Care Patient Resource Coordinator Name Role Phone Tanja Larkin MD Primary Care Provider [phone] Encounter Details Date Type Department Care Team (Latest Contact Info) Description 10/29/2024 Lab Requisition [facility] - Main Lab 299 [facility] [place] [address] Yenni Sandoval MD 299 [facility] 215 [place] [phone] Encounter for gynecological examination (general) (routine) without [...] for your loved ones. For example, childcare provider or elderly care for an older adult? [...] 9:00 AM EST Office Visit Pulmonology - [place] 175 [facility] 200 [place] [phone] Abhay Coppola MD [address] [place] [phone] 06/18/2025 8:40 AM EST Office Visit [facility] - [facility] [address] [facility] 154 [place] [phone] Marycarmen Georges NP [address] [place] [address] Dr Jauregui [address] [place] [address] 07/31/2025 8:50 AM EST Office Visit Gastroenterology - 299 [facility] 299 [facility] [address] [place] [phone] Daphnie Almanza PA 299 [facility] [address] [place] [address] 09/03/2025 9:45 AM EDT Office Visit Internal Medicine [facility] 175 [facility] 200 [place] [phone] Tanja Larkin MD [address] [place] [phone] documented as of this encounter Procedures Procedure [...] LAB MICROBIOLOGY METHOD 10/29/2024 3:58 PM EDT [facility] Brushing/Spatula Cervix uteri structure / Unknown 10/26/2024 10/29/2024 6:20 AM EDT us Yenni Sandoval MD LAB MOLECULAR DIAGNOSTIC S ORDERABLES Final Result [facility] [address] [place] [address], * Pap smear (10/26/2024 12:00 AM EDT) Interpretation Negative for intraepithelial lesion or malignancy 10/30/2024 9:00 AM EDT [facility] at 0900 EDT General Categorization Negative 10/30/2024 9:00 AM EDT [facility] Other Findings Atrophy 10/30/2024 9:00 AM EDT [facility] Specimen Adequacy Satisfactory for evaluation 10/30/2024 9:00 AM EDT [facility] Pap Methodology Liquid Based Pap Test 10/30/2024 9:00 AM EDT [facility] Disclaimer The Pap test is a screening test which carries an inherent false negative rate. These test results should be correlated with the patient's clinical findings and history. This Pap test was processed using an automated screening system. Technical cytopathology services provided by [facility], at [address] [place] [address] (CLIA # [id number]/Selene Sutherland MD, Vocal Music Instructor.) 10/30/2024 9:00 AM EDT [facility] Console Pap Interpretation Reported 10/30/2024 9:00 AM EDT [facility] Brushing/Spatula Cervix uteri structure / Unknown 10/26/2024 10/29/2024 6:20 AM EDT us Yenni Sandoval MD LAB CYTOLOGY ORDERABLES Final Result [facility] [address] [place] [address], documented in this encounter Visit Diagnoses Diagnosis Encounter for gynecological examination (general) (routine) without abnormal findings documented in this encounter Additional Health Concerns Assessment Noted Time PHQ-9 Depression Total Score: 19 025 3:44 PM EST documented as of this encounter Care Teams Patient Resource Coordinator Relationship Specialty Start Date End Date Tanja Larkin MD 175 [facility] 200 [place] [phone] PCP - General Internal Medicine 05/04/24 documented as of this encounter
== END 2025-05-29 11:48 | disposition home or self-care (01) ==
LOC: HO.RHES 10:47
PROVIDERS: PCP Internal Medicine; Visit Provider Internal Medicine Rheumatology
DX: M70.61 Trochanteric bursitis, right hip (principal); M70.62 Trochanteric bursitis, left hip
CPT/HCPCS: 20610; 99213

== ENCOUNTER → 2025-05-29 10:47 | Outpatient (BNVA) | payer MEDICARE, MEDICAID, SELFPAY | PROVIDERS: PCP Internal Medicine; Visit Provider Internal Medicine Rheumatology | DX: M70.61 Trochanteric bursitis, right hip (principal); M70.62 Trochanteric bursitis, left hip | CPT/HCPCS: 20610; 99212; J2003; J3301 ==

== ENCOUNTER 2025-05-31 13:00 | Outpatient (AMB) | payer MEDICARE, MEDICAID, SELFPAY ==
--- OUTSIDE RECORDS SUMMARY | 2024-04-11 04:00 | XMS_ITS ---
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 Name Role Phone JOE COOLEY Primary Care Provider SADAF Son Unavailable [phone] Maddi Pérez Unavailable [phone] Medications Medication SIG (Take, Route, Frequency, Duration) Notes Start Date End Date Status Zepbound 2.5 MG/0.5ML Solution Auto-injector 0.5 mL Subcutaneous once weekly; Duration: 30 days Active Atorvastatin Calcium 20 MG Tablet TAKE ONE TABLET DAILY Oral; Duration: 90 Days Active Pantoprazole Sodium 40 MG Tablet Delayed Release TAKE ONE TABLET EVERY DAY Oral; Duration: 90 Days Active Cetirizine HCl 10 MG Tablet TAKE ONE TAB LET BY MOUTH TWICE DAILY Oral; Duration: 90 Days Active Trelegy Ellipta 100-62.5-25 MCG/ACT Aerosol Powder Breath Activated Inhalation; Duration: 30 Days Active traZODone HCl 50 MG Tablet TAKE 1/2 TO 1 TABLET EVERY NIGHT AT BEDTIME NEEDED FOR SLEEP Oral; Duration: 30 Days Active Albuterol Sulfate (2.5 MG/3ML) 0.083% Nebulization Solution PLEASE SEE ATTACHED FOR DETAILED DIRECTIONS Inhalation; Duration: 12 Days Active Potassium Chloride ER 10 MEQ Capsule Extended Release TAKE ONE CAPSULE TWICE DAILY Oral; Duration: 30 Days Active Sucralfate 1 GM Tablet Oral; Duration: 3 0 Days Active Montelukast Sodium 10 MG Tablet Oral; Duration: 90 Days Active hydroCHLOROthiazide 12.5 MG Capsule TAKE ONE CAPSULE DAILY Oral; Duration: 30 Days Active Cymbalta 30 MG Capsule Delayed Release Particles 1 capsule Orally Once a day twice daily Active Sulfamethoxazole-Trimethopr im 800-160 MG Tablet Oral; Duration: 7 Days Active Encounters Encounter Location Date Provider Diagnosis [facility] [id number] [address] 04/11/2024 Maddi Pérez Other obesity due to excess calories E66.09 ; Body mass index [BMI] 32.0-32.9, adult Z68.32 ; Essential hypertension I10 ; Anxiety disorder, unspecified F41.9 ; Depression, unspecified F32.A ; Fibromyalgia M79.7 ; History of asthma Z87.09 and Weight loss counseling, encounter for Z71.3 Assessments Encounter Date Diagnosis (ICD Code) Assessment Notes Treatment Notes Treatment Clinical Notes Section Notes 04/11/2024 Other obesity due to excess calories (ICD-10 - E66.09) #Obesity. 04/11/24: 03/15/24: 160.7 pounds, BMI 32.5. New patient welcomed to the practice. Reviewed Seca scale in detail with patient. Discussed medical weight loss options with patient including phentermine, Contrave, Wegovy, compounded semaglutide, Zepbound, compounded tirzepatide, Topamax and metformin. She is most interested in Wegovy or Zepbound. Unclear if her insurance covers weight management medications. Will submit for Zepbound to the pharmacy. Discussed PA can take up to 4 weeks. Reviewed risk benefits adverse effects of medication in detail with patient. Demonstrated proper use of pen autoinjector in the office. Discussed importance of protein intake with a goal of 60 to 80 g a day, calorie goal of 1200 to 1300 hollis a day as well as regular exercise including resistance training and hydration. Discussed adding probiotics and B complex vitamin. Plan to follow-up with me in 1 month for repeat Seca scale at that time. Follow-up sooner with any concerns. #Hypertension. Followed by PCP. She is not a good candidate for phentermine. #Anxiety and depression. Followed by psychiatry and therapy. Currently on Cymbalta. #Fibromyalgia. On Cymbalta as above. #Asthma. Followed by PCP. Weight Consult Plan: Patient has been found to be obese with a BMI of 32.5. Patient has class 1 obesity. Patient was reassured and welcomed to the practice. We discussed that we stress a hollistic medical approach with emphasis on lifestyle modification. Patient was informed that a healthy lifestyle with exercise and good eating habits can help reduce his risk of medical complications. He is explained that obesity increases his risk of diabetes, cardiovascular disease, or organ damage. We spent a lot of time discussing the relationship between food, exercise, sleep, mental health and obesity. Patient was counseled on the importance EATING local, organic food when possible. Patient was educated on clean 15 and dirty dozen. I provided information about reading books called The Food Rules by Arnol Callejas and Eat Fat Get Lean by Dr Awais Corbin. Self education is important in the journey for weight management. Patient was offered diagnostic testing. We want to measure visceral adiposity, advanced body composition, adverse lipids, fatty acid balance, risk for heart disease and atherosclerosis, markers of inflammation and genetic susceptibility. Patient was counseled on weight management and was advised to lose weight using B. Lifestyle management which includes several strategies as below 1. Eat a low carbohydrate good fat good protein diet. Eliminate refined carbohydrates from the diet. Continue blood sugar and sugared beverages. Eat local organic when possible. Cook your own meals. Read food labels. None about healthy snacks. Portion control and food with low glycemic index 2. Exercise regularly. Try to get at least 6000 steps a day. Use a predominant to track activity level. Consider using apps like [employer], lose it, stick as needed for self-monitoring and weight management. Consider group exercises. Consider hiring a household personal assistant. Regular exercise is mccurdy to sustainable health and prevents as a buffer against weight regain 3. Sleep is most important for healing. Tried to sleep at least 8 hours a night. A good quality sleep needs a sleep ritual with ideal room temperature of around 68. It might help to take a shower and have no electronics in the room and sleep in a very dark room without artificial light. Start her sleep routine and get up early in the morning and go to bed on time 4. Make a social connection. Surround yourself with positive people with positive energy. Connect with friends and family. 5. Get into the habit of meditating and mindfulness while doing everything. 6. Go outside and connect with nature. C. Prescription medications Patient was educated on the use of prescription medications for medical weight loss. This is a growing list and includes phentermine, Topamax,Qsymia, contrave, belviq and saxenda. All prescription medications could have side effects including but not limited to kidney stones, seizure disorder cardiac arrhythmias heart attack pancreatitis etc. etc.. Patient was encouraged to read the prescription insert and have coaching with their pharmacist and make an informed decision about taking medication and know that these medications are being prescribed with good intentions and we do not know how a patient would react to her medication. Sudden medications are FDA approved for weight loss and there is also off label use depending on patient's inability to afford medications in an attempt to lose weight D. Behavioral counseling was done to establish a relationship between food and an mood. Patient was provided information about local counseling and psychiatry and Dr Iniguez at [facility]. We would like to cover regular topics and build on low glycemic eating exercise mindful eating, using yoga and meditation along with deep breathing and connecting with friends and family. E. MASS PAT reviewed, Patient's current medications were reviewed and opinion was given on medication that can cause weight gain and can be substituted F. Patient was assessed for risk with obesity including and not limiting to atherosclerosis heart disease stroke kidney disease, restrictive lung disease, irritable bowel syndrome and overall mortality. Risk of developing prediabetes diabetes and metabolic syndrome was discussed G. Therapeutic plan: We have decided to make therapeutic plan which would include choosing wisely on calories restricting portion getting active, tracking weight, getting good quality sleep and working on time management H. Patient will follow up in (4) weeks for weight management Total time spent today was 60 minutes of which greater than 50% was spent on coordinating and counseling Case discussed with collaborating physician Rani Srinivasan who reviewed the assessment and plan. Chart, medications, labs, vital signs reviewed. Dictation was accomplished with the use of [employer] voice recognition software, prone to medical misidentifications and grammatical errors. This is unintentional and the practitioner does try to identify and correct these, but some could still be present. Please do not hesitate to contact practitioner for clarification. All questions answered to patients satisfaction. Patient verbalized understanding of diagnosis and treatments explained. To call sooner prior to next visit it any questions/concerns arise. 04/11/2024 Body mass index [BMI] 32.0-32.9, adult (ICD-10 - Z68.32) #Obesity. 04/11/24: 03/15/24: 160.7 pounds, BMI 32.5. New patient welcomed to the practice. Reviewed Seca scale in detail with patient. Discussed medical weight loss options with patient including phentermine, Contrave, Wegovy, compounded semaglutide, Zepbound, compounded tirzepatide, Topamax and metformin. She is most interested in Wegovy or Zepbound. Unclear if her insurance covers weight management medications. Will submit for Zepbound to the pharmacy. Discussed PA can take up to 4 weeks. Reviewed risk benefits adverse effects of medication in detail with patient. Demonstrated proper use of pen autoinjector in the office. Discussed importance of protein intake with a goal of 60 to 80 g a day, calorie goal of 1200 to 1300 hollis a day as well as regular exercise including resistance training and hydration. Discussed adding probiotics and B complex vitamin. Plan to follow-up with me in 1 month for repeat Seca scale at that time. Follow-up sooner with any concerns. #Hypertension. Followed by PCP. She is not a good candidate for phentermine. #Anxiety and depression. Followed by psychiatry and therapy. Currently on Cymbalta. #Fibromyalgia. On Cymbalta as above. #Asthma. Followed by PCP. Weight Consult Plan: Patient has been found to be obese with a BMI of 32.5. Patient has class 1 obesity. Patient was reassured and welcomed to the practice. We discussed that we stress a hollistic medical approach with emphasis on lifestyle modification. Patient was informed that a healthy lifestyle with exercise and good eating habits can help reduce his risk of medical complications. He is explained that obesity increases his risk of diabetes, cardiovascular disease, or organ damage. We spent a lot of time discussing the relationship between food, exercise, sleep, mental health and obesity. Patient was counseled on the importance EATING local, organic food when possible. Patient was educated on clean 15 and dirty dozen. I provided information about reading books called The Food Rules by Arnol Callejas and Eat Fat Get Lean by Dr Awais Corbin. Self education is important in the journey for weight management. Patient was offered diagnostic testing. We want to measure visceral adiposity, advanced body composition, adverse lipids, fatty acid balance, risk for heart disease and atherosclerosis, markers of inflammation and genetic susceptibility. Patient was counseled on weight management and was advised to lose weight using B. Lifestyle management which includes several strategies as below 1. Eat a low carbohydrate good fat good protein diet. Eliminate refined carbohydrates from the diet. Continue blood sugar and sugared beverages. Eat local organic when possible. Cook your own meals. Read food labels. None about healthy snacks. Portion control and food with low glycemic index 2. Exercise regularly. Try to get at least 6000 steps a day. Use a predominant to track activity level. Consider using apps like [employer], lose it, stick as needed for self-monitoring and weight management. Consider group exercises. Consider hiring a household personal assistant. Regular exercise is mccurdy to sustainable health and prevents as a buffer against weight regain 3. Sleep is most important for healing. Tried to sleep at least 8 hours a night. A good quality sleep needs a sleep ritual with ideal room temperature of around 68. It might help to take a shower and have no electronics in the room and sleep in a very dark room without artificial light. Start her sleep routine and get up early in the morning and go to bed on time 4. Make a social connection. Surround yourself with positive people with positive energy. Connect with friends and family. 5. Get into the habit of meditating and mindfulness while doing everything. 6. Go outside and connect with nature. C. Prescription medications Patient was educated on the use of prescription medications for medical weight loss. This is a growing list and includes phentermine, Topamax,Qsymia, contrave, belviq and saxenda. All prescription medications could have side effects including but not limited to kidney stones, seizure disorder cardiac arrhythmias heart attack pancreatitis etc. etc.. Patient was encouraged to read the prescription insert and have coaching with their pharmacist and make an informed decision about taking medication and know that these medications are being prescribed with good intentions and we do not know how a patient would react to her medication. Sudden medications are FDA approved for weight loss and there is also off label use depending on patient's inability to afford medications in an attempt to lose weight D. Behavioral counseling was done to establish a relationship between food and an mood. Patient was provided information about local counseling and psychiatry and Dr Iniguez at [facility]. We would like to cover regular topics and build on low glycemic eating exercise mindful eating, using yoga and meditation along with deep breathing and connecting with friends and family. E. MASS PAT reviewed, Patient's current medications were reviewed and opinion was given on medication that can cause weight gain and can be substituted F. Patient was assessed for risk with obesity including and not limiting to atherosclerosis heart disease stroke kidney disease, restrictive lung disease, irritable bowel syndrome and overall mortality. Risk of developing prediabetes diabetes and metabolic syndrome was discussed G. Therapeutic plan: We have decided to make therapeutic plan which would include choosing wisely on calories restricting portion getting active, tracking weight, getting good quality sleep and working on time management H. Patient will follow up in (4) weeks for weight management Total time spent today was 60 minutes of which greater than 50% was spent on coordinating and counseling Case discussed with collaborating physician Rani Srinivasan who reviewed the assessment and plan. Chart, medications, labs, vital signs reviewed. Dictation was accomplished with the use of [employer] voice recognition software, prone to medical misidentifications and grammatical errors. This is unintentional and the practitioner does try to identify and correct these, but some could still be present. Please do not hesitate to contact practitioner for clarification. All questions answered to patients satisfaction. Patient verbalized understanding of diagnosis and treatments explained. To call sooner prior to next visit it any questions/concerns arise. 04/11/2024 Essential hypertension (ICD-10 - I10) #Obesity. 04/11/24: 03/15/24: 160.7 pounds, BMI 32.5. New patient welcomed to the practice. Reviewed Seca scale in detail with patient. Discussed medical weight loss options with patient including phentermine, Contrave, Wegovy, compounded semaglutide, Zepbound, compounded tirzepatide, Topamax and metformin. She is most interested in Wegovy or Zepbound. Unclear if her insurance covers weight management medications. Will submit for Zepbound to the pharmacy. Discussed PA can take up to 4 weeks. Reviewed risk benefits adverse effects of medication in detail with patient. Demonstrated proper use of pen autoinjector in the office. Discussed importance of protein intake with a goal of 60 to 80 g a day, calorie goal of 1200 to 1300 hollis a day as well as regular exercise including resistance training and hydration. Discussed adding probiotics and B complex vitamin. Plan to follow-up with me in 1 month for repeat Seca scale at that time. Follow-up sooner with any concerns. #Hypertension. Followed by PCP. She is not a good candidate for phentermine. #Anxiety and depression. Followed by psychiatry and therapy. Currently on Cymbalta. #Fibromyalgia. On Cymbalta as above. #Asthma. Followed by PCP. Weight Consult Plan: Patient has been found to be obese with a BMI of 32.5. Patient has class 1 obesity. Patient was reassured and welcomed to the practice. We discussed that we stress a hollistic medical approach with emphasis on lifestyle modification. Patient was informed that a healthy lifestyle with exercise and good eating habits can help reduce his risk of medical complications. He is explained that obesity increases his risk of diabetes, cardiovascular disease, or organ damage. We spent a lot of time discussing the relationship between food, exercise, sleep, mental health and obesity. Patient was counseled on the importance EATING local, organic food when possible. Patient was educated on clean 15 and dirty dozen. I provided information about reading books called The Food Rules by Arnol Callejas and Eat Fat Get Lean by Dr Awais Corbin. Self education is important in the journey for weight management. Patient was offered diagnostic testing. We want to measure visceral adiposity, advanced body composition, adverse lipids, fatty acid balance, risk for heart disease and atherosclerosis, markers of inflammation and genetic susceptibility. Patient was counseled on weight management and was advised to lose weight using B. Lifestyle management which includes several strategies as below 1. Eat a low carbohydrate good fat good protein diet. Eliminate refined carbohydrates from the diet. Continue blood sugar and sugared beverages. Eat local organic when possible. Cook your own meals. Read food labels. None about healthy snacks. Portion control and food with low glycemic index 2. Exercise regularly. Try to get at least 6000 steps a day. Use a predominant to track activity level. Consider using apps like [employer], lose it, stick as needed for self-monitoring and weight management. Consider group exercises. Consider hiring a household personal assistant. Regular exercise is mccurdy to sustainable health and prevents as a buffer against weight regain 3. Sleep is most important for healing. Tried to sleep at least 8 hours a night. A good quality sleep needs a sleep ritual with ideal room temperature of around 68. It might help to take a shower and have no electronics in the room and sleep in a very dark room without artificial light. Start her sleep routine and get up early in the morning and go to bed on time 4. Make a social connection. Surround yourself with positive people with positive energy. Connect with friends and family. 5. Get into the habit of meditating and mindfulness while doing everything. 6. Go outside and connect with nature. C. Prescription medications Patient was educated on the use of prescription medications for medical weight loss. This is a growing list and includes phentermine, Topamax,Qsymia, contrave, belviq and saxenda. All prescription medications could have side effects including but not limited to kidney stones, seizure disorder cardiac arrhythmias heart attack pancreatitis etc. etc.. Patient was encouraged to read the prescription insert and have coaching with their pharmacist and make an informed decision about taking medication and know that these medications are being prescribed with good intentions and we do not know how a patient would react to her medication. Sudden medications are FDA approved for weight loss and there is also off label use depending on patient's inability to afford medications in an attempt to lose weight D. Behavioral counseling was done to establish a relationship between food and an mood. Patient was provided information about local counseling and psychiatry and Dr Iniguez at [facility]. We would like to cover regular topics and build on low glycemic eating exercise mindful eating, using yoga and meditation along with deep breathing and connecting with friends and family. E. MASS PAT reviewed, Patient's current medications were reviewed and opinion was given on medication that can cause weight gain and can be substituted F. Patient was assessed for risk with obesity including and not limiting to atherosclerosis heart disease stroke kidney disease, restrictive lung disease, irritable bowel syndrome and overall mortality. Risk of developing prediabetes diabetes and metabolic syndrome was discussed G. Therapeutic plan: We have decided to make therapeutic plan which would include choosing wisely on calories restricting portion getting active, tracking weight, getting good quality sleep and working on time management H. Patient will follow up in (4) weeks for weight management Total time spent today was 60 minutes of which greater than 50% was spent on coordinating and counseling Case discussed with collaborating physician Rani Srinivasan who reviewed the assessment and plan. Chart, medications, labs, vital signs reviewed. Dictation was accomplished with the use of [employer] voice recognition software, prone to medical misidentifications and grammatical errors. This is unintentional and the practitioner does try to identify and correct these, but some could still be present. Please do not hesitate to contact practitioner for clarification. All questions answered to patients satisfaction. Patient verbalized understanding of diagnosis and treatments explained. To call sooner prior to next visit it any questions/concerns arise. 04/11/2024 Anxiety disorder, unspecified (ICD-10 - F41.9) #Obesity. 04/11/24: 03/15/24: 160.7 pounds, BMI 32.5. New patient welcomed to the practice. Reviewed Seca scale in detail with patient. Discussed medical weight loss options with patient including phentermine, Contrave, Wegovy, compounded semaglutide, Zepbound, compounded tirzepatide, Topamax and metformin. She is most interested in Wegovy or Zepbound. Unclear if her insurance covers weight management medications. Will submit for Zepbound to the pharmacy. Discussed PA can take up to 4 weeks. Reviewed risk benefits adverse effects of medication in detail with patient. Demonstrated proper use of pen autoinjector in the office. Discussed importance of protein intake with a goal of 60 to 80 g a day, calorie goal of 1200 to 1300 hollis a day as well as regular exercise including resistance training and hydration. Discussed adding probiotics and B complex vitamin. Plan to follow-up with me in 1 month for repeat Seca scale at that time. Follow-up sooner with any concerns. #Hypertension. Followed by PCP. She is not a good candidate for phentermine. #Anxiety and depression. Followed by psychiatry and therapy. Currently on Cymbalta. #Fibromyalgia. On Cymbalta as above. #Asthma. Followed by PCP. Weight Consult Plan: Patient has been found to be obese with a BMI of 32.5. Patient has class 1 obesity. Patient was reassured and welcomed to the practice. We discussed that we stress a hollistic medical approach with emphasis on lifestyle modification. Patient was informed that a healthy lifestyle with exercise and good eating habits can help reduce his risk of medical complications. He is explained that obesity increases his risk of diabetes, cardiovascular disease, or organ damage. We spent a lot of time discussing the relationship between food, exercise, sleep, mental health and obesity. Patient was counseled on the importance EATING local, organic food when possible. Patient was educated on clean 15 and dirty dozen. I provided information about reading books called The Food Rules by Arnol Callejas and Eat Fat Get Lean by Dr Awais Corbin. Self education is important in the journey for weight management. Patient was offered diagnostic testing. We want to measure visceral adiposity, advanced body composition, adverse lipids, fatty acid balance, risk for heart disease and atherosclerosis, markers of inflammation and genetic susceptibility. Patient was counseled on weight management and was advised to lose weight using B. Lifestyle management which includes several strategies as below 1. Eat a low carbohydrate good fat good protein diet. Eliminate refined carbohydrates from the diet. Continue blood sugar and sugared beverages. Eat local organic when possible. Cook your own meals. Read food labels. None about healthy snacks. Portion control and food with low glycemic index 2. Exercise regularly. Try to get at least 6000 steps a day. Use a predominant to track activity level. Consider using apps like [employer], lose it, stick as needed for self-monitoring and weight management. Consider group exercises. Consider hiring a household personal assistant. Regular exercise is mccurdy to sustainable health and prevents as a buffer against weight regain 3. Sleep is most important for healing. Tried to sleep at least 8 hours a night. A good quality sleep needs a sleep ritual with ideal room temperature of around 68. It might help to take a shower and have no electronics in the room and sleep in a very dark room without artificial light. Start her sleep routine and get up early in the morning and go to bed on time 4. Make a social connection. Surround yourself with positive people with positive energy. Connect with friends and family. 5. Get into the habit of meditating and mindfulness while doing everything. 6. Go outside and connect with nature. C. Prescription medications Patient was educated on the use of prescription medications for medical weight loss. This is a growing list and includes phentermine, Topamax,Qsymia, contrave, belviq and saxenda. All prescription medications could have side effects including but not limited to kidney stones, seizure disorder cardiac arrhythmias heart attack pancreatitis etc. etc.. Patient was encouraged to read the prescription insert and have coaching with their pharmacist and make an informed decision about taking medication and know that these medications are being prescribed with good intentions and we do not know how a patient would react to her medication. Sudden medications are FDA approved for weight loss and there is also off label use depending on patient's inability to afford medications in an attempt to lose weight D. Behavioral counseling was done to establish a relationship between food and an mood. Patient was provided information about local counseling and psychiatry and Dr Iniguez at [facility]. We would like to cover regular topics and build on low glycemic eating exercise mindful eating, using yoga and meditation along with deep breathing and connecting with friends and family. E. MASS PAT reviewed, Patient's current medications were reviewed and opinion was given on medication that can cause weight gain and can be substituted F. Patient was assessed for risk with obesity including and not limiting to atherosclerosis heart disease stroke kidney disease, restrictive lung disease, irritable bowel syndrome and overall mortality. Risk of developing prediabetes diabetes and metabolic syndrome was discussed G. Therapeutic plan: We have decided to make therapeutic plan which would include choosing wisely on calories restricting portion getting active, tracking weight, getting good quality sleep and working on time management H. Patient will follow up in (4) weeks for weight management Total time spent today was 60 minutes of which greater than 50% was spent on coordinating and counseling Case discussed with collaborating physician Rani Srinivasan who reviewed the assessment and plan. Chart, medications, labs, vital signs reviewed. Dictation was accomplished with the use of [employer] voice recognition software, prone to medical misidentifications and grammatical errors. This is unintentional and the practitioner does try to identify and correct these, but some could still be present. Please do not hesitate to contact practitioner for clarification. All questions answered to patients satisfaction. Patient verbalized understanding of diagnosis and treatments explained. To call sooner prior to next visit it any questions/concerns arise. 04/11/2024 Depression, unspecified (ICD-10 - F32.A) #Obesity. 04/11/24: 03/15/24: 160.7 pounds, BMI 32.5. New patient welcomed to the practice. Reviewed Seca scale in detail with patient. Discussed medical weight loss options with patient including phentermine, Contrave, Wegovy, compounded semaglutide, Zepbound, compounded tirzepatide, Topamax and metformin. She is most interested in Wegovy or Zepbound. Unclear if her insurance covers weight management medications. Will submit for Zepbound to the pharmacy. Discussed PA can take up to 4 weeks. Reviewed risk benefits adverse effects of medication in detail with patient. Demonstrated proper use of pen autoinjector in the office. Discussed importance of protein intake with a goal of 60 to 80 g a day, calorie goal of 1200 to 1300 hollis a day as well as regular exercise including resistance training and hydration. Discussed adding probiotics and B complex vitamin. Plan to follow-up with me in 1 month for repeat Seca scale at that time. Follow-up sooner with any concerns. #Hypertension. Followed by PCP. She is not a good candidate for phentermine. #Anxiety and depression. Followed by psychiatry and therapy. Currently on Cymbalta. #Fibromyalgia. On Cymbalta as above. #Asthma. Followed by PCP. Weight Consult Plan: Patient has been found to be obese with a BMI of 32.5. Patient has class 1 obesity. Patient was reassured and welcomed to the practice. We discussed that we stress a hollistic medical approach with emphasis on lifestyle modification. Patient was informed that a healthy lifestyle with exercise and good eating habits can help reduce his risk of medical complications. He is explained that obesity increases his risk of diabetes, cardiovascular disease, or organ damage. We spent a lot of time discussing the relationship between food, exercise, sleep, mental health and obesity. Patient was counseled on the importance EATING local, organic food when possible. Patient was educated on clean 15 and dirty dozen. I provided information about reading books called The Food Rules by Arnol Callejas and Eat Fat Get Lean by Dr Awais Corbin. Self education is important in the journey for weight management. Patient was offered diagnostic testing. We want to measure visceral adiposity, advanced body composition, adverse lipids, fatty acid balance, risk for heart disease and atherosclerosis, markers of inflammation and genetic susceptibility. Patient was counseled on weight management and was advised to lose weight using B. Lifestyle management which includes several strategies as below 1. Eat a low carbohydrate good fat good protein diet. Eliminate refined carbohydrates from the diet. Continue blood sugar and sugared beverages. Eat local organic when possible. Cook your own meals. Read food labels. None about healthy snacks. Portion control and food with low glycemic index 2. Exercise regularly. Try to get at least 6000 steps a day. Use a predominant to track activity level. Consider using apps like [employer], lose it, stick as needed for self-monitoring and weight management. Consider group exercises. Consider hiring a household personal assistant. Regular exercise is mccurdy to sustainable health and prevents as a buffer against weight regain 3. Sleep is most important for healing. Tried to sleep at least 8 hours a night. A good quality sleep needs a sleep ritual with ideal room temperature of around 68. It might help to take a shower and have no electronics in the room and sleep in a very dark room without artificial light. Start her sleep routine and get up early in the morning and go to bed on time 4. Make a social connection. Surround yourself with positive people with positive energy. Connect with friends and family. 5. Get into the habit of meditating and mindfulness while doing everything. 6. Go outside and connect with nature. C. Prescription medications Patient was educated on the use of prescription medications for medical weight loss. This is a growing list and includes phentermine, Topamax,Qsymia, contrave, belviq and saxenda. All prescription medications could have side effects including but not limited to kidney stones, seizure disorder cardiac arrhythmias heart attack pancreatitis etc. etc.. Patient was encouraged to read the prescription insert and have coaching with their pharmacist and make an informed decision about taking medication and know that these medications are being prescribed with good intentions and we do not know how a patient would react to her medication. Sudden medications are FDA approved for weight loss and there is also off label use depending on patient's inability to afford medications in an attempt to lose weight D. Behavioral counseling was done to establish a relationship between food and an mood. Patient was provided information about local counseling and psychiatry and Dr Iniguez at [facility]. We would like to cover regular topics and build on low glycemic eating exercise mindful eating, using yoga and meditation along with deep breathing and connecting with friends and family. E. MASS PAT reviewed, Patient's current medications were reviewed and opinion was given on medication that can cause weight gain and can be substituted F. Patient was assessed for risk with obesity including and not limiting to atherosclerosis heart disease stroke kidney disease, restrictive lung disease, irritable bowel syndrome and overall mortality. Risk of developing prediabetes diabetes and metabolic syndrome was discussed G. Therapeutic plan: We have decided to make therapeutic plan which would include choosing wisely on calories restricting portion getting active, tracking weight, getting good quality sleep and working on time management H. Patient will follow up in (4) weeks for weight management Total time spent today was 60 minutes of which greater than 50% was spent on coordinating and counseling Case discussed with collaborating physician Rani Srinivasan who reviewed the assessment and plan. Chart, medications, labs, vital signs reviewed. Dictation was accomplished with the use of [employer] voice recognition software, prone to medical misidentifications and grammatical errors. This is unintentional and the practitioner does try to identify and correct these, but some could still be present. Please do not hesitate to contact practitioner for clarification. All questions answered to patients satisfaction. Patient verbalized understanding of diagnosis and treatments explained. To call sooner prior to next visit it any questions/concerns arise. 04/11/2024 Fibromyalgia (ICD-10 - M79.7) #Obesity. 04/11/24: 03/15/24: 160.7 pounds, BMI 32.5. New patient welcomed to the practice. Reviewed Seca scale in detail with patient. Discussed medical weight loss options with patient including phentermine, Contrave, Wegovy, compounded semaglutide, Zepbound, compounded tirzepatide, Topamax and metformin. She is most interested in Wegovy or Zepbound. Unclear if her insurance covers weight management medications. Will submit for Zepbound to the pharmacy. Discussed PA can take up to 4 weeks. Reviewed risk benefits adverse effects of medication in detail with patient. Demonstrated proper use of pen autoinjector in the office. Discussed importance of protein intake with a goal of 60 to 80 g a day, calorie goal of 1200 to 1300 hollis a day as well as regular exercise including resistance training and hydration. Discussed adding probiotics and B complex vitamin. Plan to follow-up with me in 1 month for repeat Seca scale at that time. Follow-up sooner with any concerns. #Hypertension. Followed by PCP. She is not a good candidate for phentermine. #Anxiety and depression. Followed by psychiatry and therapy. Currently on Cymbalta. #Fibromyalgia. On Cymbalta as above. #Asthma. Followed by PCP. Weight Consult Plan: Patient has been found to be obese with a BMI of 32.5. Patient has class 1 obesity. Patient was reassured and welcomed to the practice. We discussed that we stress a hollistic medical approach with emphasis on lifestyle modification. Patient was informed that a healthy lifestyle with exercise and good eating habits can help reduce his risk of medical complications. He is explained that obesity increases his risk of diabetes, cardiovascular disease, or organ damage. We spent a lot of time discussing the relationship between food, exercise, sleep, mental health and obesity. Patient was counseled on the importance EATING local, organic food when possible. Patient was educated on clean 15 and dirty dozen. I provided information about reading books called The Food Rules by Arnol Callejas and Eat Fat Get Lean by Dr Awais Corbin. Self education is important in the journey for weight management. Patient was offered diagnostic testing. We want to measure visceral adiposity, advanced body composition, adverse lipids, fatty acid balance, risk for heart disease and atherosclerosis, markers of inflammation and genetic susceptibility. Patient was counseled on weight management and was advised to lose weight using B. Lifestyle management which includes several strategies as below 1. Eat a low carbohydrate good fat good protein diet. Eliminate refined carbohydrates from the diet. Continue blood sugar and sugared beverages. Eat local organic when possible. Cook your own meals. Read food labels. None about healthy snacks. Portion control and food with low glycemic index 2. Exercise regularly. Try to get at least 6000 steps a day. Use a predominant to track activity level. Consider using apps like [employer], lose it, stick as needed for self-monitoring and weight management. Consider group exercises. Consider hiring a household personal assistant. Regular exercise is mccurdy to sustainable health and prevents as a buffer against weight regain 3. Sleep is most important for healing. Tried to sleep at least 8 hours a night. A good quality sleep needs a sleep ritual with ideal room temperature of around 68. It might help to take a shower and have no electronics in the room and sleep in a very dark room without artificial light. Start her sleep routine and get up early in the morning and go to bed on time 4. Make a social connection. Surround yourself with positive people with positive energy. Connect with friends and family. 5. Get into the habit of meditating and mindfulness while doing everything. 6. Go outside and connect with nature. C. Prescription medications Patient was educated on the use of prescription medications for medical weight loss. This is a growing list and includes phentermine, Topamax,Qsymia, contrave, belviq and saxenda. All prescription medications could have side effects including but not limited to kidney stones, seizure disorder cardiac arrhythmias heart attack pancreatitis etc. etc.. Patient was encouraged to read the prescription insert and have coaching with their pharmacist and make an informed decision about taking medication and know that these medications are being prescribed with good intentions and we do not know how a patient would react to her medication. Sudden medications are FDA approved for weight loss and there is also off label use depending on patient's inability to afford medications in an attempt to lose weight D. Behavioral counseling was done to establish a relationship between food and an mood. Patient was provided information about local counseling and psychiatry and Dr Iniguez at [facility]. We would like to cover regular topics and build on low glycemic eating exercise mindful eating, using yoga and meditation along with deep breathing and connecting with friends and family. E. MASS PAT reviewed, Patient's current medications were reviewed and opinion was given on medication that can cause weight gain and can be substituted F. Patient was assessed for risk with obesity including and not limiting to atherosclerosis heart disease stroke kidney disease, restrictive lung disease, irritable bowel syndrome and overall mortality. Risk of developing prediabetes diabetes and metabolic syndrome was discussed G. Therapeutic plan: We have decided to make therapeutic plan which would include choosing wisely on calories restricting portion getting active, tracking weight, getting good quality sleep and working on time management H. Patient will follow up in (4) weeks for weight management Total time spent today was 60 minutes of which greater than 50% was spent on coordinating and counseling Case discussed with collaborating physician Rani Srinivasan who reviewed the assessment and plan. Chart, medications, labs, vital signs reviewed. Dictation was accomplished with the use of [employer] voice recognition software, prone to medical misidentifications and grammatical errors. This is unintentional and the practitioner does try to identify and correct these, but some could still be present. Please do not hesitate to contact practitioner for clarification. All questions answered to patients satisfaction. Patient verbalized understanding of diagnosis and treatments explained. To call sooner prior to next visit it any questions/concerns arise. 04/11/2024 History of asthma (ICD-10 - Z87.09) #Obesity. 04/11/24: 03/15/24: 160.7 pounds, BMI 32.5. New patient welcomed to the practice. Reviewed Seca scale in detail with patient. Discussed medical weight loss options with patient including phentermine, Contrave, Wegovy, compounded semaglutide, Zepbound, compounded tirzepatide, Topamax and metformin. She is most interested in Wegovy or Zepbound. Unclear if her insurance covers weight management medications. Will submit for Zepbound to the pharmacy. Discussed PA can take up to 4 weeks. Reviewed risk benefits adverse effects of medication in detail with patient. Demonstrated proper use of pen autoinjector in the office. Discussed importance of protein intake with a goal of 60 to 80 g a day, calorie goal of 1200 to 1300 hollis a day as well as regular exercise including resistance training and hydration. Discussed adding probiotics and B complex vitamin. Plan to follow-up with me in 1 month for repeat Seca scale at that time. Follow-up sooner with any concerns. #Hypertension. Followed by PCP. She is not a good candidate for phentermine. #Anxiety and depression. Followed by psychiatry and therapy. Currently on Cymbalta. #Fibromyalgia. On Cymbalta as above. #Asthma. Followed by PCP. Weight Consult Plan: Patient has been found to be obese with a BMI of 32.5. Patient has class 1 obesity. Patient was reassured and welcomed to the practice. We discussed that we stress a hollistic medical approach with emphasis on lifestyle modification. Patient was informed that a healthy lifestyle with exercise and good eating habits can help reduce his risk of medical complications. He is explained that obesity increases his risk of diabetes, cardiovascular disease, or organ damage. We spent a lot of time discussing the relationship between food, exercise, sleep, mental health and obesity. Patient was counseled on the importance EATING local, organic food when possible. Patient was educated on clean 15 and dirty dozen. I provided information about reading books called The Food Rules by Arnol Callejas and Eat Fat Get Lean by Dr Awais Corbin. Self education is important in the journey for weight management. Patient was offered diagnostic testing. We want to measure visceral adiposity, advanced body composition, adverse lipids, fatty acid balance, risk for heart disease and atherosclerosis, markers of inflammation and genetic susceptibility. Patient was counseled on weight management and was advised to lose weight using B. Lifestyle management which includes several strategies as below 1. Eat a low carbohydrate good fat good protein diet. Eliminate refined carbohydrates from the diet. Continue blood sugar and sugared beverages. Eat local organic when possible. Cook your own meals. Read food labels. None about healthy snacks. Portion control and food with low glycemic index 2. Exercise regularly. Try to get at least 6000 steps a day. Use a predominant to track activity level. Consider using apps like [employer], lose it, stick as needed for self-monitoring and weight management. Consider group exercises. Consider hiring a household personal assistant. Regular exercise is mccurdy to sustainable health and prevents as a buffer against weight regain 3. Sleep is most important for healing. Tried to sleep at least 8 hours a night. A good quality sleep needs a sleep ritual with ideal room temperature of around 68. It might help to take a shower and have no electronics in the room and sleep in a very dark room without artificial light. Start her sleep routine and get up early in the morning and go to bed on time 4. Make a social connection. Surround yourself with positive people with positive energy. Connect with friends and family. 5. Get into the habit of meditating and mindfulness while doing everything. 6. Go outside and connect with nature. C. Prescription medications Patient was educated on the use of prescription medications for medical weight loss. This is a growing list and includes phentermine, Topamax,Qsymia, contrave, belviq and saxenda. All prescription medications could have side effects including but not limited to kidney stones, seizure disorder cardiac arrhythmias heart attack pancreatitis etc. etc.. Patient was encouraged to read the prescription insert and have coaching with their pharmacist and make an informed decision about taking medication and know that these medications are being prescribed with good intentions and we do not know how a patient would react to her medication. Sudden medications are FDA approved for weight loss and there is also off label use depending on patient's inability to afford medications in an attempt to lose weight D. Behavioral counseling was done to establish a relationship between food and an mood. Patient was provided information about local counseling and psychiatry and Dr Iniguez at [facility]. We would like to cover regular topics and build on low glycemic eating exercise mindful eating, using yoga and meditation along with deep breathing and connecting with friends and family. E. MASS PAT reviewed, Patient's current medications were reviewed and opinion was given on medication that can cause weight gain and can be substituted F. Patient was assessed for risk with obesity including and not limiting to atherosclerosis heart disease stroke kidney disease, restrictive lung disease, irritable bowel syndrome and overall mortality. Risk of developing prediabetes diabetes and metabolic syndrome was discussed G. Therapeutic plan: We have decided to make therapeutic plan which would include choosing wisely on calories restricting portion getting active, tracking weight, getting good quality sleep and working on time management H. Patient will follow up in (4) weeks for weight management Total time spent today was 60 minutes of which greater than 50% was spent on coordinating and counseling Case discussed with collaborating physician Rani Srinivasan who reviewed the assessment and plan. Chart, medications, labs, vital signs reviewed. Dictation was accomplished with the use of [employer] voice recognition software, prone to medical misidentifications and grammatical errors. This is unintentional and the practitioner does try to identify and correct these, but some could still be present. Please do not hesitate to contact practitioner for clarification. All questions answered to patients satisfaction. Patient verbalized understanding of diagnosis and treatments explained. To call sooner prior to next visit it any questions/concerns arise. 04/11/2024 Weight loss counseling, encounter for (ICD-10 - Z71.3) #Obesity. 04/11/24: 03/15/24: 160.7 pounds, BMI 32.5. New patient welcomed to the practice. Reviewed Seca scale in detail with patient. Discussed medical weight loss options with patient including phentermine, Contrave, Wegovy, compounded semaglutide, Zepbound, compounded tirzepatide, Topamax and metformin. She is most interested in Wegovy or Zepbound. Unclear if her insurance covers weight management medications. Will submit for Zepbound to the pharmacy. Discussed PA can take up to 4 weeks. Reviewed risk benefits adverse effects of medication in detail with patient. Demonstrated proper use of pen autoinjector in the office. Discussed importance of protein intake with a goal of 60 to 80 g a day, calorie goal of 1200 to 1300 hollis a day as well as regular exercise including resistance training and hydration. Discussed adding probiotics and B complex vitamin. Plan to follow-up with me in 1 month for repeat Seca scale at that time. Follow-up sooner with any concerns. #Hypertension. Followed by PCP. She is not a good candidate for phentermine. #Anxiety and depression. Followed by psychiatry and therapy. Currently on Cymbalta. #Fibromyalgia. On Cymbalta as above. #Asthma. Followed by PCP. Weight Consult Plan: Patient has been found to be obese with a BMI of 32.5. Patient has class 1 obesity. Patient was reassured and welcomed to the practice. We discussed that we stress a hollistic medical approach with emphasis on lifestyle modification. Patient was informed that a healthy lifestyle with exercise and good eating habits can help reduce his risk of medical complications. He is explained that obesity increases his risk of diabetes, cardiovascular disease, or organ damage. We spent a lot of time discussing the relationship between food, exercise, sleep, mental health and obesity. Patient was counseled on the importance EATING local, organic food when possible. Patient was educated on clean 15 and dirty dozen. I provided information about reading books called The Food Rules by Arnol Callejas and Eat Fat Get Lean by Dr Awais Corbin. Self education is important in the journey for weight management. Patient was offered diagnostic testing. We want to measure visceral adiposity, advanced body composition, adverse lipids, fatty acid balance, risk for heart disease and atherosclerosis, markers of inflammation and genetic susceptibility. Patient was counseled on weight management and was advised to lose weight using B. Lifestyle management which includes several strategies as below 1. Eat a low carbohydrate good fat good protein diet. Eliminate refined carbohydrates from the diet. Continue blood sugar and sugared beverages. Eat local organic when possible. Cook your own meals. Read food labels. None about healthy snacks. Portion control and food with low glycemic index 2. Exercise regularly. Try to get at least 6000 steps a day. Use a predominant to track activity level. Consider using apps like [employer] (Group), [employer], lose it, stick as needed for self-monitoring and weight management. Consider group exercises. Consider hiring a household personal assistant. Regular exercise is mccurdy to sustainable health and prevents as a buffer against weight regain 3. Sleep is most important for healing. Tried to sleep at least 8 hours a night. A good quality sleep needs a sleep ritual with ideal room temperature of around 68. It might help to take a shower and have no electronics in the room and sleep in a very dark room without artificial light. Start her sleep routine and get up early in the morning and go to bed on time 4. Make a social connection. Surround yourself with positive people with positive energy. Connect with friends and family. 5. Get into the habit of meditating and mindfulness while doing everything. 6. Go outside and connect with nature. C. Prescription medications Patient was educated on the use of prescription medications for medical weight loss. This is a growing list and includes phentermine, Topamax,Qsymia, contrave, belviq and saxenda. All prescription medications could have side effects including but not limited to kidney stones, seizure disorder cardiac arrhythmias heart attack pancreatitis etc. etc.. Patient was encouraged to read the prescription insert and have coaching with their pharmacist and make an informed decision about taking medication and know that these medications are being prescribed with good intentions and we do not know how a patient would react to her medication. Sudden medications are FDA approved for weight loss and there is also off label use depending on patient's inability to afford medications in an attempt to lose weight D. Behavioral counseling was done to establish a relationship between food and an mood. Patient was provided information about local counseling and psychiatry and Dr Iniguez at [facility]. We would like to cover regular topics and build on low glycemic eating exercise mindful eating, using yoga and meditation along with deep breathing and connecting with friends and family. E. MASS PAT reviewed, Patient's current medications were reviewed and opinion was given on medication that can cause weight gain and can be substituted F. Patient was assessed for risk with obesity including and not limiting to atherosclerosis heart disease stroke kidney disease, restrictive lung disease, irritable bowel syndrome and overall mortality. Risk of developing prediabetes diabetes and metabolic syndrome was discussed G. Therapeutic plan: We have decided to make therapeutic plan which would include choosing wisely on calories restricting portion getting active, tracking weight, getting good quality sleep and working on time management H. Patient will follow up in (4) weeks for weight management Total time spent today was 60 minutes of which greater than 50% was spent on coordinating and counseling Case discussed with collaborating physician Rani Srinivasan who reviewed the assessment and plan. Chart, medications, labs, vital signs reviewed. Dictation was accomplished with the use of [employer] voice recognition software, prone to medical misidentifications and grammatical errors. This is unintentional and the practitioner does try to identify and correct these, but some could still be present. Please do not hesitate to contact practitioner for clarification. All questions answered to patients satisfaction. Patient verbalized understanding of diagnosis and treatments explained. To call sooner prior to next visit it any questions/concerns arise. Plan Of Treatment Medication Medication Name Sig Start Date Stop Date Notes Zepbound 2.5 MG/0.5ML Solution Auto-injector 0.5 mL Subcutaneous once weekly; Duration: 30 days History and Physical Notes * HPI (History of Present Illness) Category Sub-Category Detail Notes Category Not es Constitutional Kristy is a 54-year-old female here today for weight management follow up. She has a past medical history significant for asthma, fibromyalgia, depression, anxiety, lung granuloma, osteoarthritis, GERD. Reports she lost her son several years ago in a motorcycle accident and has struggled with depression and weight gain since. She is followed by psychiatry and sees a therapist regularly. Mood has been well-controlled on Cymbalta. She was approved for Zepbound and started 2 weeks ago. PCP: Was referred by bariatric specialist- Dr. Umanzor Will be starting with type cutter PMH: Asthma, fibromyalgia, depression, anxiety, lung granuloma, OA, GERD- recent endoscopy. had dilation of esophagus for ? stricture. gallbladder removed november 27 HIighest weight: 165 Lowest weight: 125 Current weight: Weight last visit: 160 Goal weight: 125-128 Trials in the past: Saxenda, metformin Protein intake: unsure Diet: tends to crave sweets. Has been increasing salads, more take out lately Water intake: not great with water intake. small amount of coffee Exercise: walking Barriers: FH: No thyroid cancer Recent Labs: 02/29/24 5.5 a1c cortisol 1.5 total 156, tg 178, hdl 56, ldl 65 [facility]- therapist. Ewa pierre, currently on cymbalta 30 mg BID, Physical Examination Category Sub-Category Detail Notes Section Note s General: Well appearing, well nourished, age appropriate in no acute distress. Speaking in full, clear sentences. SKIN: Warm, dry intact. No rashes/lesions. HEENT: Normocephalic atraumatic. EOM intact. No nystagmus noted. PERRLA. LUNGS: Clear to auscultation bilaterally, no wheezes, rales or rhonchi CARDIAC: Regular rate and rhythm, no murmurs, rubs or gallops. Extremities: Warm and well perfused. No edema noted. Neuro: CN II-XI grossly intact. Speaking in full sentences. Hearing intact. Progress Notes * Kristy LIDOB:1970 ( 55 yo F)Acc No.[id number]:04/11/2024 Patient: Kristy Torres Provider: Lucie Pérez PA-C :1970 A ge:54 Y S ex:Female Date:04/11/2024 Address:[address] [place], [place] [id number] Pcp:JOE COOLEY Subjective: * Chief Complaints: * HPI: C onstitutional: Kristy is a 54-year-old female here today for weight management follow up. She has a past medical history significant for asthma, fibromyalgia, depression, anxiety, lung granuloma, osteoarthritis, GERD. Reports she lost her son several years ago in a motorcycle accident and has struggled with depression and weight gain since. She is followed by psychiatry and sees a therapist regularly. Mood has been well- controlled on Cymbalta. She was approved for Zepbound and started 2 weeks ago. PCP: Was referred by bariatric specialist- Dr. Umanzor Will be starting with type cutter PMH: Asthma, fibromyalgia, depression, anxiety, lung granuloma, OA, GERD- recent endoscopy. had dilation of esophagus for ? stricture. gallbladder removed november 27 HIighest weight: 165 Lowest weight: 125 Current weight: Weight last visit: 160 Goal weight: 125-128 Trials in the past: Saxenda, metformin Protein intake: unsure Diet: tends to crave sweets. Has been increasing salads, more take out lately Water intake: not great with water intake. small amount of coffee Exercise: walking Barriers: FH: No thyroid cancer Recent Labs: 02/29/24 5.5 a1c cortisol 1.5 total 156, tg 178, hdl 56, ldl 65 [facility]- therapist. Ewa pierre, currently on cymbalta 30 mg BID,. * ROS: A ll Other Systems: Review of Systems (ROS) A ll others negative except those mentioned in HPI. * Medications: T akingCymbalta 30 MG Capsule Delayed Release Particles 1 capsule Orally Once a day , Notes to Pharmacist: twice dailySulfamethoxazole-Trimethoprim 800-160 MG Tablet Oral hydroCHLOROthiazide 12.5 MG Capsule TAKE ONE CAPSULE DAILY Oral Montelukast Sodium 10 MG Tablet Oral Potassium Chloride ER 10 MEQ Capsule Extended Release TAKE ONE CAPSULE TWICE DAILY Oral Sucralfate 1 GM Tablet Oral traZODone HCl 50 MG Tablet TAKE 1/2 TO 1 TABLET EVERY NIGHT AT BEDTIME NEEDED FOR SLEEP Oral Albuterol Sulfate (2.5 MG/3ML) 0.083% Nebulization Solution PLEASE SEE ATTACHED FOR DETAILED DIRECTIONS Inhalation Cetirizine HCl 10 MG Tablet TAKE ONE TABLET BY MOUTH TWICE DAILY Oral Trelegy Ellipta 100-62.5-25 MCG/ACT Aerosol Powder Breath Activated Inhalation Atorvastatin Calcium 20 MG Tablet TAKE ONE TABLET DAILY Oral Pantoprazole Sodium 40 MG Tablet Delayed Release TAKE ONE TABLET EVERY DAY Oral Zepbound 2.5 MG/0.5ML Solution Auto- injector inject 2.5 mg Subcutaneous once weekly Taking Cymbalta 30 MG Capsule Delayed Release Particles 1 capsule Orally Once a day , Notes to Pharmacist: twice dailyTaking Sulfamethoxazole-Trimethoprim 800-160 MG Tablet Oral Taking hydroCHLOROthiazide 12.5 MG Capsule TAKE ONE CAPSULE DAILY Oral Taking Montelukast Sodium 10 MG Tablet Oral Taking Potassium Chloride ER 10 MEQ Capsule Extended Release TAKE ONE CAPSULE TWICE DAILY Oral Taking Sucralfate 1 GM Tablet Oral Taking traZODone HCl 50 MG Tablet TAKE 1/2 TO 1 TABLET EVERY NIGHT AT BEDTIME NEEDED FOR SLEEP Oral Taking Albuterol Sulfate (2.5 MG/3ML) 0.083% Nebulization Solution PLEASE SEE ATTACHED FOR DETAILED DIRECTIONS Inhalation Taking Cetirizine HCl 10 MG Tablet TAKE ONE TABLET BY MOUTH TWICE DAILY Oral Taking Trelegy Ellipta 100-62.5-25 MCG/ACT Aerosol Powder Breath Activated Inhalation Taking Atorvastatin Calcium 20 MG Tablet TAKE ONE TABLET DAILY Oral Taking Pantoprazole Sodium 40 MG Tablet Delayed Release TAKE ONE TABLET EVERY DAY Oral Taking Zepbound 2.5 MG/0.5ML Solution Auto-injector inject 2.5 mg Subcutaneous once weekly Objective: * Physical Examination: G eneral: Well appearing, well nourished, age appropriate in no acute distress. Speaking in full, clear sentences. SKIN: Warm, dry intact. No rashes/lesions. HEENT: Normocephalic atraumatic. EOM intact. No nystagmus noted. PERRLA. LUNGS: Clear to auscultation bilaterally, no wheezes, rales or rhonchi CARDIAC: Regular rate and rhythm, no murmurs, rubs or gallops. Extremities: Warm and well perfused. No edema noted. Neuro: CN II-XI grossly intact. Speaking in full sentences. Hearing intact. Assessment: * Assessment: 1. O ther obesity due to excess calories - E66.09 (Primary) 2 . B jessica mass index [BMI] 32.0-32.9, adult - Z68.32 3 . E ssential hypertension - I10 ? 4 . A nxiety disorder, unspecified - F41.9 5 . D epression, unspecified - F32.A 6 . F ibromyalgia - M79.7 7 . H istory of asthma - Z87.09 8 . W eight loss counseling, encounter for - Z71.3 #Obesity. 04/11/24: 03/15/24: 160.7 pounds, BMI 32.5. New patient welcomed to the practice. Reviewed Seca scale in detail with patient. Discussed medical weight loss options with patient including phentermine, Contrave, Wegovy, compounded semaglutide, Zepbound, compounded tirzepatide, Topamax and metformin. She is most interested in Wegovy or Zepbound. Unclear if her insurance covers weight management medications. Will submit for Zepbound to the pharmacy. Discussed PA can take up to 4 weeks. Reviewed risk benefits adverse effects of medication in detail with patient. Demonstrated proper use of pen autoinjector in the office. Discussed importance of protein intake with a goal of 60 to 80 g a day, calorie goal of 1200 to 1300 hollis a day as well as regular exercise including resistance training and hydration. Discussed adding probiotics and B complex vitamin. Plan to follow-up with me in 1 month for repeat Seca scale at that time. Follow-up sooner with any concerns. #Hypertension. Followed by PCP. She is not a good candidate for phentermine. #Anxiety and depression. Followed by psychiatry and therapy. Currently on Cymbalta. #Fibromyalgia. On Cymbalta as above. #Asthma. Followed by PCP. Weight Consult Plan: Patient has been found to be obese with a BMI of 32.5. Patient has class 1 obesity. Patient was reassured and welcomed to the practice. We discussed that we stress a hollistic medical approach with emphasis on lifestyle modification. Patient was informed that a healthy lifestyle with exercise and good eating habits can help reduce his risk of medical complications. He is explained that obesity increases his risk of diabetes, cardiovascular disease, or organ damage. We spent a lot of time discussing the relationship between food, exercise, sleep, mental health and obesity. Patient was counseled on the importance EATING local, organic food when possible. Patient was educated on clean 15 and dirty dozen. I provided information about reading books called The Food Rules by Arnol Callejas and Eat Fat Get Lean by Dr Awais Corbin. Self education is important in the journey for weight management. Patient was offered diagnostic testing. We want to measure visceral adiposity, advanced body composition, adverse lipids, fatty acid balance, risk for heart disease and atherosclerosis, markers of inflammation and genetic susceptibility. Patient was counseled on weight management and was advised to lose weight using B. Lifestyle management which includes several strategies as below 1. Eat a low carbohydrate good fat good protein diet. Eliminate refined carbohydrates from the diet. Continue blood sugar and sugared beverages. Eat local organic when possible. Cook your own meals. Read food labels. None about healthy snacks. Portion control and food with low glycemic index 2. Exercise regularly. Try to get at least 6000 steps a day. Use a predominant to track activity level. Consider using apps like [employer] (Group), [employer], lose it, stick as needed for self-monitoring and weight management. Consider group exercises. Consider hiring a household personal assistant. Regular exercise is mccurdy to sustainable health and prevents as a buffer against weight regain 3. Sleep is most important for healing. Tried to sleep at least 8 hours a night. A good quality sleep needs a sleep ritual with ideal room temperature of around 68. It might help to take a shower and have no electronics in the room and sleep in a very dark room without artificial light. Start her sleep routine and get up early in the morning and go to bed on time 4. Make a social connection. Surround yourself with positive people with positive energy. Connect with friends and family. 5. Get into the habit of meditating and mindfulness while doing everything. 6. Go outside and connect with nature. C. Prescription medications Patient was educated on the use of prescription medications for medical weight loss. This is a growing list and includes phentermine, Topamax,Qsymia, contrave, belviq and saxenda. All prescription medications could have side effects including but not limited to kidney stones, seizure disorder cardiac arrhythmias heart attack pancreatitis etc. etc.. Patient was encouraged to read the prescription insert and have coaching with their pharmacist and make an informed decision about taking medication and know that these medications are being prescribed with good intentions and we do not know how a patient would react to her medication. Sudden medications are FDA approved for weight loss and there is also off label use depending on patient's inability to afford medications in an attempt to lose weight D. Behavioral counseling was done to establish a relationship between food and an mood. Patient was provided information about local counseling and psychiatry and Dr Iniguez at [facility]. We would like to cover regular topics and build on low glycemic eating exercise mindful eating, using yoga and meditation along with deep breathing and connecting with friends and family. E. MASS PAT reviewed, Patient's current medications were reviewed and opinion was given on medication that can cause weight gain and can be substituted F. Patient was assessed for risk with obesity including and not limiting to atherosclerosis heart disease stroke kidney disease, restrictive lung disease, irritable bowel syndrome and overall mortality. Risk of developing prediabetes diabetes and metabolic syndrome was discussed G. Therapeutic plan: We have decided to make therapeutic plan which would include choosing wisely on calories restricting portion getting active, tracking weight, getting good quality sleep and working on time management H. Patient will follow up in (4) weeks for weight management Total time spent today was 60 minutes of which greater than 50% was spent on coordinating and counseling Case discussed with collaborating physician Rani Srinivasan who reviewed the assessment and plan. Chart, medications, labs, vital signs reviewed. Dictation was accomplished with the use of [employer] voice recognition software, prone to medical misidentifications and grammatical errors. This is unintentional and the practitioner does try to identify and correct these, but some could still be present. Please do not hesitate to contact practitioner for clarification. All questions answered to patients satisfaction. Patient verbalized understanding of diagnosis and treatments explained. To call sooner prior to next visit it any questions/concerns arise. Plan: * Treatment: * Procedure Codes: 9 9199 NO SHOW OFFICE VISIT Billing Information: * Procedure Codes: 21512 NO SHOW OFFICE VISIT. * Electronic signature of Maddi Pérez PA-C on 05/31/2025 at 04:54 PM EST Sign off status: Pending * Provider: Lucie Pérez PA-C Date: Generated for Savi altamirano/Eric/Carlos Eduardo on: 08/01/2024 04:54 PM EST
--- OUTSIDE RECORDS SUMMARY | 2025-04-11 04:15 | XMS_ITS ---
Author Organization [facility] [address] Address [address] [place] [address] Care Team Providers Care Permaculture Designer Name Role Phone JOE COOLEY Primary Care Provider Unavailabl SADAF Varner Unavailable [phone] Maddi Pérez Unavailable [phone] Encounters Encounter Location Date Provider Diagnosis [facility] [address] [address] 04/11/2025 Maddi Pérez Plan Of Treatment No Information Progress Notes * Kristy LIDOB:1970 ( 55 yo F)Acc No.[id number]:04/11/2025 Patient: Narinder Kristy davalos Provider: Lucie Pérez PA-C :1970 A ge:55 Y S ex:Female Date:04/11/2025 Address:[address] [place], [place] [id number] Pcp:JOE COOLEY * Electronic signature of Maddi Pérez PA-C on 05/31/2025 at 04:55 PM EST Sign off status: Pending * Provider: Lucie Pérez PA-C Date: 1 Generated for Savi altamirano/Eric/eTransmitting on: 08/01/2024 04:55 PM EST
[2025-05-31 13:11] VITALS: BP 106/52; PULSE 86; RESP 16; O2SAT 96; BMI 31.3
--- NOTE | 2025-05-31 13:11 | MHC.OFFVIS ---
Vital Signs 05/31/25 13:11 Height 4 ft 11 in Weight 155 lb BMI 31.3 BP 106/52 L Blood Pressure Location Rt brachial Position Sitting Respiration 16 Pulse 86 Pulse Source Pulse Oximeter Pulse Oximetry (%) 96 Oxygen Delivery Method Room Air Intake Visit Reasons: S/p B/l Dx C3-C4-C5 MBB 05/17/25 Lead Relay Tester Required: No Accompanied by: Self / Same As Patient Allergies aspirin (ASPIRIN) Allergy (Intermediate, Verified 05/31/25 13:16) STOMACH UPSET NSAIDS (Non-Steroidal Anti-Inflamma Allergy (Mild, Verified 05/31/25 13:16) Stomach Upset acetaminophen (Percocet) Allergy (Unknown, Verified 05/31/25 13:16) Unknown codeine (CODEINE) Adverse Reaction (Intermediate, Verified 05/31/25 13:16) STOMACH UPSET oxycodone (From PERCOCET) Adverse Reaction (Intermediate, Verified 05/31/25 13:16) STOMACH UPSET Lactose Allergy (Unknown, Uncoded 04/09/25 14:13) Unknown HPI Comments Details: The patient is a 55 year old female presenting for follow-up of chronic neck pain. She underwent bilateral diagnostic c3 c4 c5 MBBs about a month ago, which provided no relief. Following the procedure, she experienced significant swelling, tenderness, and tightness in the neck, which limited her ability to move her neck. The patient continues to experience significant neck pain, which she states makes it difficult to move her head. She also reports associated tingling, numbness, and weakness in her hands, causing her to drop things. She is currently receiving physical therapy for shoulder pain, and has tried neck exercises from past physical therapy, but these cause significant pain. She has previously seen a neurologist for her symptoms. - Location: The patient reports widespread chronic neck pain. - Severity: The pain is severe, to the point where she cannot keep her head straight. - Quality: Following her recent procedure, the area felt tender, swollen, and tight. - Associated Symptoms: The patient experiences tingling and numbness that extends from the neck down her arms into her hands. - Exacerbating Factors: Performing neck stretching exercises increases her pain. - Relieving Factors: She reports that applying Vicks VapoRub provides some mild relief by relaxing the muscles. - Analgesia: The patient recently underwent a diagnostic block a month ago which provided no relief. - Activities of Daily Living: Her pain is severe and interferes with her posture, making it difficult to keep her head straight. - Adverse Effects: Following the recent procedure, she experienced significant pain, swelling, and tightness which limited her neck mobility. - Affect: The patient expresses significant distress from her pain. - Aberrant Drug Related Behaviors: No aberrant behaviors were discussed. [facility] Medical History FH: cholecystectomy Osteoarthritis, hand Osteoarthritis of knees, bilateral Fibromyalgia Surgical History Hx of cholecystectomy History of total right knee replacement History of esophagogastroduodenoscopy (EGD) History of carpal tunnel release of both wrists Family History Father Stroke CVD (cardiovascular disease) Mother Gastritis Skin cancer Social History Household Members: Spouse Housing: House Are you a primary hemodialysis patient care specialist to a significant other at home: No Do you presently have visiting nurse or other home services: No 75 years or older and lives alone: No Alcohol intake: never Patient Tobacco Use Status: Never used Tobacco e-Cigarette/Vaping Use: Never Used Second Hand Smoke Exposure: No service: No Current occupational status: disabled Review of Systems Narrative - Neurological: Reports tingling and numbness in her hands that radiates down her arms. - Musculoskeletal: Reports chronic, severe neck pain with associated muscle spasms and tightness. - She reports shoulder pain. Physical Exam Exam Exam: General: awake, alert, oriented. Answers questions appropriately. Fully engaged in examination. Skin: warm, dry, intact HEENT: Normocephalic. Hearing intact. Cardiac: External chest normal in appearance. Respiratory: No cough, audible wheezing or stridor. Abdomen: without gross distension. MS: No obvious swelling or deformities. Neurological: Oriented to person, place, time and situation. Thought process intact. No gait abnormalities appreciated. Psychiatric: Appropriate mood and affect. Good judgment and insight. Vital Signs: Last Vital Signs Pulse 86 05/31/25 13:11 Resp 16 05/31/25 13:11 BP 106/52 L 05/31/25 13:11 Pulse Ox 96 05/31/25 13:11 Oxygen Delivery Method Room Air 05/31/25 13:11 BMI result Body Mass Index 31.3 Results Reviewed Results Reviewed: - Cervical Spine MRI (11/30/2024) from [place] reviewed on patients cell phone during visit: Findings were significant for multilevel bony and disc degenerative changes, notably at C5-6 where there is a significant decrease in disc height, a disc-osteophyte complex, narrowing of the lateral recesses and C6 neural foramina, with possible compression of the C6 nerve roots. - The report also suggests muscle spasms. - There was no evidence of focal disc herniation, spinal stenosis, or spinal cord compression, though the exam was limited by motion artifact. - Other levels showed milder degenerative changes, including minimal disc bulging at C2-3, mild bulging and foraminal narrowing at C3-4, disc height decrease and facet hypertrophy at C4-5, and disc bulging with osteophytes at C6-7. Assessment & Plan Assessment & Plan (1) Cervical spondylosis: Code(s): M47.812 - Spondylosis without myelopathy or radiculopathy, cervical region Category: Medical (2) Chronic pain syndrome: Code(s): G89.4 - Chronic pain syndrome Category: Medical (3) Degenerative disc disease, cervical: Code(s): M50.30 - Other cervical disc degeneration, unspecified cervical region Category: Medical (4) Cervical radiculopathy: Code(s): M54.12 - Radiculopathy, cervical region Category: Medical (5) Cervical disc disease: Code(s): M50.90 - Cervical disc disorder, unspecified, unspecified cervical region Category: Medical Plan The patient will be scheduled for a parasagittal cervical epidural steroid injection at the C6 level to address the possible nerve root compression identified on her MRI. The procedure will be performed with sedation for patient comfort. This will be submitted to her insurance for prior authorization. An order will be placed for physical therapy to address the cervical muscle spasms noted on the MRI and to help improve her neck pain and function. If these interventions do not provide adequate relief, the next steps discussed include a referral to neurosurgery for evaluation, followed by consideration of a spinal cord stimulator if she is not a surgical candidate. A brochure on spinal cord stimulation was provided to the patient. A release of information will be signed by the patient to obtain the official report for her cervical spine MRI from [facility]. Patient was informed and verbally consented to the use of an ambient scribe for clinic note documentation during this visit. Orders: Orders PT Evaluation and Treatment Today M47.812 - Spondylosis without myelopathy or radiculopathy, cervical region, M50.30 - Other cervical disc degeneration, unspecified cervical region, M50.90 - Cervical disc disorder, unspecified, unspecified cervical region, M54.12 - Radiculopathy, cervical region Patient Instructions: - You will be scheduled for a steroid injection in your neck to help with pain and nerve irritation. - This procedure will be done with sedation to help you relax. - We will submit this to your insurance for approval and contact you to schedule. - We are also putting in an order for you to return to physical therapy for your neck. - Please sign the release form so we can obtain the official report from your recent MRI. - If the neck injection does not help, we will discuss other options, such as seeing a spine surgeon or considering a device called a spinal cord stimulator. - Please review the brochure provided on the spinal cord stimulator. Coding Level of Care Code Est Pt Level 3 (45204) Complex visit Add On G2211 Diagnoses Cervical spondylosis M47.812 Chronic pain syndrome G89.4 Degenerative disc disease, cervical M50.30 Cervical radiculopathy M54.12 Cervical disc disease M50.90
--- OUTSIDE RECORDS SUMMARY | 2025-05-31 16:54 | XMS_ITS | Encounter Summary ---
Author Organization [employer] Address [address] [place] [address] [address] [place] [address] Care Team Providers Care Recruiting And Selection Consultant Name Role Phone Unavailable Primary Care Provider Unavailabl e Reason for Visit * Reason Comments Med Refill Encounter Details Date Type Department Care Team (Late st Contact Info) Description 05/31/2024 Refill [facility] ADULT DENTAL [address] [place] [address] Chet Wade DDS [address] [place] [address] Social History Tobacco Use Types Packs/Day Years [...]
--- OUTSIDE RECORDS SUMMARY | 2025-05-31 16:54 | XMS_ITS | Encounter Summary ---
Author Organization [facility] Address [address] [place] [address] Care Team Providers Care Map Plotter Name Role Phone Tanja Larkin MD Primary Care Provider [phone] Encounter Details Date Type Department Care Team (Late st Contact Info) Description 02/26/2025 Lab Requisition [facility] - Main Lab 299 [facility] [place] [phone] Yenni Sandoval MD 299 [facility] 215 [place] [phone] Urinary tract infection, site not specified; Acute [...] for your loved ones. For example, child development professor or elderly care for an older adult? [...] 9:00 AM EST Office Visit Pulmonology - [place] 175 [facility] 200 [place] [phone] Abhay Coppola MD [address] [place] [phone] 06/18/2025 8:40 AM EST Office Visit [facility] - [facility] 154 300 [facility] 154 [place] [phone] Marycarmen Georges NP [address] [place] [address] Dr Jauregui [address] [place] [address] 07/31/2025 8:50 AM EST Office Visit Gastroenterology - 299 [facility] 299 [facility] 419 [place] [phone] Daphnie Almanza PA 299 [facility] 419 [place] [address] 09/03/2025 9:45 AM EDT Office Visit Internal Medicine - [address] [place] [address] Tanja Larkin MD [address] [place] [phone] documented as of this encounter Procedures Procedure [...] reflex microscopic (02/26/2025 12:00 AM EDT) Specific [place] Urine 1.022 1.003 - 1.030 LAB URINALYSIS - AUTOMATED METHOD 02/26/2025 6:27 PM [facility] pH, Urine 6.0 5.0 - 8.0 pH LAB URINALYSIS - AUTOMATED METHOD 02/26/2025 6:27 PM [facility] Leukocytes, Urine Trace(A) Negative LAB URINALYSIS - AUTOMATED METHOD 02/26/2025 6:27 PM [facility] Nitrite, Urine Negative Negative LAB URINALYSIS - AUTOMATED METHOD 02/26/2025 6:27 PM [facility] Protein, Urine Negative <=Trace mg/dL LAB URINALYSIS - AUTOMATED METHOD 02/26/2025 6:27 PM [facility] Glucose, Urine Negative Negative mg/dL LAB URINALYSIS - AUTOMATED METHOD 02/26/2025 6:27 PM [facility] Ketones, Urine Trace(A) Negative mg/dL LAB URINALYSIS - AUTOMATED METHOD 02/26/2025 6:27 PM [facility] Urobilinogen, Urine 0.2 0.2 - 1.0 mg/dL LAB URINALYSIS - AUTOMATED METHOD 02/26/2025 6:27 PM [facility] Bilirubin, Urine Negative Negative LAB URINALYSIS - AUTOMATED METHOD 02/26/2025 6:27 PM [facility] Blood, Urine Negative Negative LAB URINALYSIS - AUTOMATED METHOD 02/26/2025 6:27 PM [facility] RBC, Urine 3.8 0 - 4 /HPF LAB URINALYSIS - AUTOMATED METHOD 02/26/2025 6:27 PM [facility] WBC, Urine 3.3 0 - 4 /HPF LAB URINALYSIS - AUTOMATED METHOD 02/26/2025 6:27 PM [facility] Squamous Epithelial, Urine 43 0 - 60 /LPF LAB URINALYSIS - AUTOMATED METHOD 02/26/2025 6:27 PM [facility] Bacteria, Urine Negative Negative /HPF LAB URINALYSIS - AUTOMATED METHOD 02/26/2025 6:27 PM [facility] Hyaline Casts, Urine 2.0 0 - 3 /LPF LAB URINALYSIS - AUTOMATED METHOD 02/26/2025 6:27 PM [facility] Urine Urine specimen obtained by clean catch procedure / Unknown 02/26/2025 02/26/2025 6:09 PM EDT us Yenni Sandoval MD LAB URINE ORDERABLES Fin al Result [facility] 299 [place] [address], [place] [phone] * Vaginitis pathogens molecular study (02/26/2025 12:00 AM EDT) Trichomonas vaginalis Negative Negative 02/27/2025 10:31 AM EDT [facility] Gardnerella vaginalis Negative Negative 02/27/2025 10:31 AM EDT [facility] Ann Species Negative Negative 10:31 AM EDT [facility] Swab Vaginal structure / Unknown 02/26/2025 02/26/2025 6:09 PM EDT us Yenni Sandoval MD LAB MICROBIOLOGY - GENER AL ORDERABLES Final Result Performing Organization Address City/[facility]/ZIP Co de Phone Number [facility] [address] [place] [address], * Culture urine (02/26/2025 12:00 AM EDT) Culture, Urine <10,000 cfu/mL Mixed bacterial miguel 02/27/2025 1:26 PM EDT [facility] Urine Urine specimen obtained by clean catch procedure / Unknown 02/26/2025 02/26/2025 6:09 PM EDT us Yenni Sandoval MD LAB MICROBIOLOGY - GENER AL ORDERABLES Final Result [facility] 299 [place] [address], [place] [phone] documented in this encounter Visit Diagnoses Diagnosis Urinary tract infection, site not specified Acute vaginitis Unspecified vaginitis and vulvovaginitis documented in this encounter Additional Health Concerns Assessment Noted Time PHQ-9 Depression Total Score: 19 03/2 025 3:44 PM EST documented as of this encounter Care Teams Map Plotter Relationship Specialty Start Date End Date Tanja Larkin MD [address] [phone] PCP - General Internal Medicine 05/04/24 documented as of this encounter
--- OUTSIDE RECORDS SUMMARY | 2025-05-31 16:54 | XMS_ITS | Encounter Summary ---
Author Organization [employer] Address [address] [facility] 7t [place] [address] Care Team Providers Care Varnish Finisher Name Role Phone Unavailable Primary Care Provider Unavailabl e Reason for Visit * Reason Comments Med Refill Encounter Details Date Type Department Care Team (Late st Contact Info) Description 04/10/2024 Refill [facility] ADULT DENTAL 230 [place] [address] Chet Wade DDS [address] [place] [address] Social History Tobacco Use Types Packs/Day Years [...]
--- OUTSIDE RECORDS SUMMARY | 2025-05-31 16:54 | XMS_ITS | Encounter Summary ---
Author Organization [facility] Address [address] [place] [address] 7t [place] [address] Care Team Providers Care Coil Former Name Role Phone Unavailable Primary Care Provider Unavailabl e Reason for Visit * Reason Onset Date Comments Extraction 03/22/2024 Encounter Details Date Type Department Care Team (Late st Contact Info) Description 03/22/2024 Telephone [facility] [address] [place] [address] Lopez Gill BDNicky [address] [place] [address] Extraction Social History Tobacco Use Types Packs/Day [...]
--- OUTSIDE RECORDS SUMMARY | 2025-05-31 16:54 | XMS_ITS | Encounter Summary ---
Author Organization [employer] Address [address] [facility] 7 [place] [address] Care Team Providers Care Dipper And Baker Name Role Phone Unavailable Primary Care Provider Unavailabl e Reason for Visit * Reason Onset Date Comments referral for Oral Surgery 09/14/2024 Encounter Details Date Type Department Care Team (Late st Contact Info) Description 09/14/2024 Telephone [facility] ADULT DENTAL [address] [place] [address] Mert Giang [address] [place] [address] referral for Oral Surgery Social History Tobacco [...] stating that she went to the front counter attendant and informed no documentation had been sent concerning patient request for referral. However documentation was sent to provider as opposed to front counter attendant seeing that providers provide referrals. Also sending to Jose the event she was calling patient concerning cancelled Oral Surgery appt for September. Patient called in seeking referral to go to an oral surgeon for a lesion on her tongue. Patient active requested since 03/2024 and was able to get in elsewhere sooner. Provider will prepare referral and patient will come to quill picking machine operator after having received call from front counter attendant that referral is ready. Patient questioned how soon it would be ready. I was explained to patient that I did not have an official timeframe, however office will reach out to her and she can quill picking machine operator once it is ready. Patient [...] prepare referral and patient will come to quill picking machine operator after having received call from front counter attendant that referral is ready. Patient questioned how soon it would be ready. I was explained to patient that I did not have an official timeframe, however office will reach out to her and she can quill picking machine operator once it is ready. Patient [...]
--- OUTSIDE RECORDS SUMMARY | 2025-05-31 16:54 | XMS_ITS | Encounter Summary ---
Author Organization [email or web address] Address [address] [address] [place] [address] Care Team Providers Care Program Manager Name Role Phone Sudarshan Hdz MD Primary [...] on filedocumented in this encounter Care Teams Program Manager Relationship Specialty Start Date End Date Sudarshan Hdz MD [address] [place] [id number] PCP - General Internal Medicine 11/27/19 06/30/23 documented as of this encounter
--- OUTSIDE RECORDS SUMMARY | 2025-05-31 16:54 | XMS_ITS | Clinical Summary ---
Author Organization [facility] Address [address] [place] [phone] Phone Care Team Providers Care Feed In Worker Name Role Phone Tanja Larkin MD Primary Care Provider [phone] Allergies Active Allergy Reactions Criticality Noted Date [...] 90 each 12/05 Active HYDROMORPHONE 0.2 MG/ML SEED SERVICE ADVISOR OPIOID TOLERANT DOSING RULE Active Breztri Aerosphere [...] sleep apnea) 10/13/2017 Overview (03/28/2024): [facility] Home Sleep Apnea Test: Date 11/22/2018; [...] Department Care Team Description 05/01/2025 Tele[address] [phone] Abhay Coppola MD 04/18/2025 Results Follow-Up Gastroenterology [address] [phone] Danica Park MD 04/15/2025 Telephone Internal Medicine [address] [phone] Tanja Larkin MD 04/05/2025 10:00 AM EDT Office Visit Internal Medicine [address] [phone] Tanja Larkin MD Gastroesophageal reflux disease without esophagitis (Primary Dx); Mixed hyperlipidemia; Primary hypertension; Obesity (BMI 30.0-34.9); Fibromyalgia; Mild persistent asthma without complication; RAMOS on CPAP 04/05/2025 Telephone Internal Medicine [address] [phone] Tanja Larkin MD 04/03/2025 Telephone [facility] - [facility] [address] 300 [facility] 154 [place] [address] Lázaro Mcguire MD 04/01/2025 Telephone [facility] Cardiology [facility] [address] [place] [address] Lázaro Mcguire MD 03/29/2025 10:58 AM EDT - 03/29/2025 1:37 PM EDT Emergency [facility] Emergency [address] [place] [address] Chas Rodriguez MD Nonintractable headache, unspecified chronicity pattern, unspecified headache type (Primary Dx); Secondary hypertension Discharge Disposition: Home or Self Care 03/29/[address] [facility] [address] [phone] Tanja Larkin MD 03/29/2025 Telephone Internal Medicine [address] [phone] Tanja Larkin MD 03/29/2025 Telephone Internal Medicine [address] [address] Tanja Larkin MD 03/28/2025 3:52 PM EDT - 03/28/2025 4:59 PM EDT Emergency [facility] Emergency [address] [place] [address] Sarah Sage MD Acute pain of right shoulder (Primary Dx) Discharge Disposition: Home or Self Care 03/07/2025 9:54 AM EDT Anesthesia Event [facility] Endoscopy [address] [place] [phone] Carlitos Joseph MD 03/07/2025 8:54 AM EDT - 03/07/2025 11:59 PM EDT Hospital Encounter [facility] Endoscopy [address] [place] [address] Danica Park MD Steele, Matthew G, CRNA Gastroesophageal reflux disease without esophagitis; Pharyngeal dysphagia Discharge Disposition: Home or Self Care 03/04/2025 9:10 AM EDT Office Visit Gastroenterology [facility] [address] [phone] Daphnie Almanza PA Gastroesophageal reflux disease without esophagitis (Primary Dx); Esophageal stenosis; Chronic constipation 03/04/[address] [facility] [address] [address] [place] [address] Daphnie Almanza PA from Last 3 Months Immunizations Immunization Administration Dates Next Due Hepatitis B (Ozafwen-A-Riggp , Recombivax HB-Adult) 19yo and older 11/07/2013,06/13/2013,05/09/2013 [...] from spine a few mths VAGINOSCOPY PROCEDURE: TX COLPOSCOPY CERVIX VAG LOOP ELTRD BX CERVIX; COMMENT: hx of abnormal pap smear EYE SURGERY PROCEDURE: TX TRABECULOPLASTY BY LASER SURGERY; COMMENT: SENG schneider/marisa ESOPHAGOGASTRODUODENOSCOPY 06/16/2012 PROCEDURE: TX ESOPHAGOGASTRODUODENOSCOPY TRANSORAL DIAGNOSTIC; COMMENT: normal ESOPHAGOGASTRODUODENOSCOPY 09/2018 PROCEDURE: TX ESOPHAGOGASTRODUODENOSCOPY TRANSORAL DIAGNOSTIC KNEE SURGERY 08/2020 Right PROCEDURE: HISTORICAL KNEE SURGERY; COMMENT: arthroscopic CHOLECYSTECTOMY PROCEDURE: TX LAPAROSCOPY SURG CHOLECYSTECTOMY COLONOSCOPY Medical History Medical History Date Comments Seasonal allergies DX:Seasonal a llergies Lumbago DX:Lumbago Cervicalgia DX:Cervicalgia Esophageal reflux DX:Esophageal reflux Sciatica DX:Sciatica Solitary pulmonary nodule 06/15/2013 DX:Merari itary pulmonary nodule RAMOS (obstructive sleep apnea) 10/13/2017 DX :RAMOS (obstructive sleep apnea); COMMENT: [facility] Home Sleep Apnea Test: Date 11/22/2018; [...] for your loved ones. For example, children's author or elderly care for an older [...] 9:00 AM EST Office Visit Pulmonology - [place] 175 [facility] 200 [place] [phone] Abhay Coppola MD [address] [place] [phone] 06/18/2025 8:40 AM EST Office Visit [facility] - [facility] 154 300 [facility] [address] [place] [phone] Marycarmen Georges NP [address] [place] [address] Dr [address] [place] [address] 07/31/2025 8:50 AM EST Office Visit Gastroenterology - [address] [facility] [address] [place] [phone] Daphnie Almanza PA 299 [facility] 419 [place] [address] 09/03/2025 9:45 AM EDT Office Visit Internal Medicine - [place] 175 [facility] [address] [place] [address] Tanja Larkin MD [facility] [place] [address] Health Maintenance Due Date Last [...] this topic Medical Devices Implanted Type Area Scrubbing Machine Operator Device Identifier Shelf Expiration Date Model / [...] mellitus Routine general medical examination at a [facility] care facility Screening for thyroid disorder Screening for lipoid disorders THYROID STIMULATING HORMONE WITH REFLEX TO FREE T4 AND FREE T3 Routine 03/12/2025 9:41 AM EDT Screening for diabetes mellitus Routine general medical examination at a [facility] care facility Screening for thyroid disorder Screening for lipoid disorders CBC AND DIFFERENTIAL Routine 03/12/2025 9:41 AM EDT Screening for diabetes mellitus Routine general medical examination at a [facility] care facility Screening for thyroid disorder Screening for lipoid disorders COMPREHENSIVE METABOLIC PANEL Routine 03/12/2025 9:41 AM EDT Screening for diabetes mellitus Routine general medical examination at a [facility] care facility Screening for thyroid disorder [...] lingula, as also seen on 08/21/2024. Code 89425 -------- FINAL REPORT -------- Dictated By: Joseph Chaudhary Dictated Date: 03/29/2025 11:16 ET Assigned Physician: Joseph Chaudhary Reviewed and Electronically Signed By: Joseph Chaudhary Signed Date: 03/29/2025 11:19 ET Workstation ID: [id number] Transcribed By: Self Edit Transcribed Date: 03/29/2025 [...] the lingula, as also seenon 08/21/2024. Code 51267 -------- FINAL REPORT -------- Dictated By: Joseph Chaudhary Dictated Date: 03/29/2025 11:16 ET Assigned Physician: Joseph Chaudhary Reviewed and Electronically Signed By: Joseph Chaudhary Signed Date: 03/29/2025 11:19 ET Workstation ID: [id number] Transcribed By: Self Edit Transcribed Date: 03/29/2025 11:16 ET us Mica Roman MD IMG XR PROCEDURES Final Res ult * Troponin I high sensitivity (03/29/2025 10:49 AM EDT) High Sensitivity Troponin I <3 <=54 ng/L LAB CHEMISTRY METHOD 03/29/2025 11:32 AM EDT [facility] Blood Venous blood specimen / Unknown Venipuncture / Unknown 03/29/2025 10:49 AM EDT 03/29/2025 10:55 AM EDT Narrative [facility] - 03/29/2025 11:32 AM EDT High levels of biotin in samples may falsely decrease hsTroponin values. Use caution when interpreting hsTroponin results in patients taking biotin who exhibit renal impairment (eGFR <60) or in patients taking more than 20 mg/day of biotin. us Mica Roman MD LAB BLOOD ORDERABLES Final Result [facility] [address] [place] [address], * (ABNORMAL) CBC auto differential (03/29/2025 10:49 AM EDT) Only the most recent of2 resultswithin the time period is included. Pathologist [facility] WBC 9.2 4.8 - 10.8 K/mcL LAB HEMETOLOGY METHOD 03/29/2025 11:02 AM [facility] RBC 4.50 3.80 - 4.80 M/mcL LAB HEMETOLOGY METHOD 03/29/2025 11:02 AM [facility] Hemoglobin 12.7 11.5 - 16.0 g/dL LAB HEMETOLOGY METHOD 03/29/2025 11:02 AM [facility] Hematocrit 40.4 35.0 - 47.0 % LAB HEMETOLOGY METHOD 03/29/2025 11:02 AM [facility] MCV 89.2 79.0 - 98.0 FL LAB HEMETOLOGY METHOD 03/29/2025 11:02 AM [facility] MCH 28.0 27.0 - 32.0 pcg LAB HEMETOLOGY METHOD 03/29/2025 11:02 AM [facility] MCHC 31.4(L) 32.0 - 37.0 g/dL LAB HEMETOLOGY METHOD 03/29/2025 11:02 AM [facility] RDW 14.5 11.0 - 15.0 % LAB HEMETOLOGY METHOD 03/29/2025 11:02 AM [facility] Platelets 416(H) 130 - 400 K/mcL LAB HEMETOLOGY METHOD 03/29/2025 11:02 AM [facility] MPV 9.1 7.0 - 11.0 FL LAB HEMETOLOGY METHOD 03/29/2025 11:02 AM [facility] NRBC 0.0 <1.0 % LAB HEMETOLOGY METHOD 03/29/2025 11:02 AM [facility] NRBC Absolute 0.00 <0.10 K/mcL LAB HEMETOLOGY METHOD 03/29/2025 11:02 AM [facility] Neutrophils Relative 68.5 % LAB HEMETOLOGY METHOD 03/29/2025 11:02 AM [facility] Lymphocytes Relative 18.3 % LAB HEMETOLOGY METHOD 03/29/2025 11:02 AM [facility] Monocytes Relative 11.4 % LAB HEMETOLOGY METHOD 03/29/2025 11:02 AM [facility] Eosinophils Relative 1.0 % LAB HEMETOLOGY METHOD 03/29/2025 11:02 AM [facility] Basophils Relative 0.5 % LAB HEMETOLOGY METHOD 03/29/2025 11:02 AM [facility] Immature Granulocytes Relative 0.3 % LAB HEMETOLOGY METHOD 03/29/2025 11:02 AM [facility] Neutrophils Absolute 6.33 1.50 - 7.00 K/mcL LAB HEMETOLOGY METHOD 03/29/2025 11:02 AM [facility] Lymphocytes Absolute 1.69 1.00 - 5.00 K/mcL LAB HEMETOLOGY METHOD 03/29/2025 11:02 AM [facility] Monocytes Absolute 1.05(H) 0.20 - 1.00 K/mcL LAB HEMETOLOGY METHOD 03/29/2025 11:02 AM [facility] Eosinophils Absolute 0.09 0.00 - 0.50 K/mcL LAB HEMETOLOGY METHOD 03/29/2025 11:02 AM EDT [facility] Basophils Absolute 0.05 0.00 - 0.20 K/mcL LAB HEMETOLOGY METHOD 03/29/2025 11:02 AM EDT [facility] Immature Granulocytes Absolute 0.03 0.00 - 0.03 K/[facility] LAB HEMETOLOGY METHOD 03/29/2025 11:02 AM EDT [facility] Blood Venous blood specimen / Unknown Venipuncture / Unknown 03/29/2025 10:49 AM EDT 03/29/2025 10:55 AM EDT Mica Roman MD LAB BLOOD ORDERABLES Final Result Performing Organization Address City/[facility]/ZIP Co de Phone Number [facility] [address] [place] [address], [place] [phone] * B-type natriuretic peptide (03/29/2025 10:49 AM EDT) BNP 12 <=100 pcg/mL LAB CHEMISTRY METHOD 03/29/2025 11:58 AM EDT [facility] Blood Venous blood specimen / Unknown Venipuncture / Unknown 03/29/2025 10:49 AM EDT 03/29/2025 10:55 AM EDT Mica Roman MD LAB BLOOD ORDERABLES Final Result [facility] [address] [place] [address], [place] [phone] * Magnesium (03/29/2025 10:49 AM EDT) Magnesium 2.4 1.9 - 2.6 mg/dL LAB CHEMISTRY METHOD 03/29/2025 11:18 AM EDT [facility] Blood Venous blood specimen / Unknown Venipuncture / Unknown 03/29/2025 10:49 AM EDT 03/29/2025 10:55 AM EDT Mica Roman MD LAB BLOOD ORDERABLES Final Result Performing Organization Address [facility] Co de Phone Number [facility] [address] [place] [address], [place] [phone] * Lipase (03/29/2025 10:49 AM EDT) [facility] Lipase 24 13 - 75 unit/L LAB CHEMISTRY METHOD 03/29/2025 11:18 AM EDT [facility] Blood Venous blood specimen / Unknown Venipuncture / Unknown 03/29/2025 10:49 AM EDT 03/29/2025 10:55 AM EDT Mica Roman MD LAB BLOOD ORDERABLES Final Result Performing Organization Address [facility] Phone Number [facility] [address] [place] [address], [place] [phone] * ECG 12 lead (03/29/2025 10:46 AM EDT) [facility] Ventricular Rate ECG 85 BPM GEMUSE Atrial Rate 85 BPM GEMUSE P-R Interval 158 ms GEMUSE QRS Duration 86 ms GEMUSE Q-T Interval 380 ms GEMUSE QTc 452 ms GEMUSE P Wave Sherman 32 degrees GEMUSE R Sherman -18 degrees GEMUSE T Sherman 9 degrees GEMUSE ECG Interpretation Normal sinus rhythm Normal ECG When compared with ECG of 21-AUG-2024 18:32, No significant change was found Confirmed by DIANDRA SANCHES ([id number]) on 03/30/2025 11:07:15 AM GEMUSE 03/29/2025 10:4 6 AM EDT 03/30/2025 11:07 AM EDT Mica Roman MD ECG ORDERABLES Final Resul t Performing Organization Address [facility] Co de Phone Number GEMUSE * XR [...] Signed Date: 03/28/2025 17:08 ET Workstation ID: [id number] Transcribed By: Self Edit Transcribed Date: 03/28/2025 [...] Signed Date: 03/28/2025 17:08 ET Workstation ID: [id number] Transcribed By: Self Edit Transcribed Date: 03/28/2025 16:55 ET Sarah Sage MD IMG XR PROCEDURES Final Result * Thyroid stimulating hormone with reflex to free t4 and free t3 (03/12/2025 9:41 AM EDT) TSH 1.41 0.40 - 4.00 mcIU/mL LAB CHEMISTRY METHOD 03/12/2025 2:32 PM EDT [facility] Blood Venous blood specimen / Unknown Venipuncture / Unknown 03/12/2025 9:41 AM EDT 03/12/2025 12:11 PM EDT Maddi FUNEZ LAB BLOOD ORDERABLES Final Resul t [facility] [address] [place] [address], [place] [phone] * (ABNORMAL) Lipid panel with reflex to direct LDL (03/12/2025 9:41 AM EDT) Cholesterol 267(H) 0 - 200 mg/dL LAB CHEMISTRY METHOD 03/12/2025 2:02 PM EDT [facility] Comment:Results verified by repeat testing Triglycerides 145 0 - 150 mg/dL LAB CHEMISTRY METHOD 03/12/2025 2:02 PM EDT [facility] HDL 75 >=40 mg/dL LAB CHEMISTRY METHOD 03/12/2025 2:02 PM EDT [facility] LDL Calculated 163(H) 0 - 100 mg/dL LAB CHEMISTRY METHOD 03/12/2025 2:02 PM EDT [facility] Comment:Estimated LDL Calcul ated using equation: Total cholesterol - HDL cholesterol - (Triglycerides/5) VLDL Cholesterol Oliverio 29 mg/dL LAB CHEMISTRY METHOD 03/12/2025 2:02 PM EDT [facility] Non HDL Chol. (LDL+VLDL) 192(H) <145 mg/dL LAB CHEMISTRY METHOD 03/12/2025 2:02 PM EDT [facility] Chol/HDL Ratio 3.6 0.0 - 4.4 LAB CHEMISTRY METHOD 03/12/2025 2:02 PM EDT [facility] Blood Venous blood specimen / Unknown Venipuncture / Unknown 03/12/2025 9:41 AM EDT 03/12/2025 12:11 PM EDT us Maddi FUNEZ LAB BLOOD ORDERABLES Final Resul t [facility] [address] [place] [address], [place] [phone] * Hemoglobin A1c (03/12/2025 9:41 AM EDT) [facility] Hemoglobin A1C 5.3 <6.5 % LAB CHEMISTRY METHOD 03/12/2025 2:26 PM EDT [facility] Mean Bld Glu Estim. 105 mg/dL LAB CHEMISTRY METHOD 03/12/2025 2:26 PM EDT [facility] Blood Venous blood specimen / Unknown Venipuncture / Unknown 03/12/2025 9:41 AM EDT 03/12/2025 12:14 PM EDT Maddi FUNEZ LAB BLOOD ORDERABLES Final Resul t [facility] [address] [place] [address], [place] [phone] * (ABNORMAL) Comprehensive metabolic panel (03/12/2025 9:41 AM EDT) [facility] Sodium 139 133 - 145 mmol/L LAB CHEMISTRY METHOD 03/12/2025 1:51 PM [facility] Potassium 3.5 3.5 - 5.5 mmol/L LAB CHEMISTRY METHOD 03/12/2025 1:51 PM [facility] Chloride 106 96 - 110 mmol/L LAB CHEMISTRY METHOD 03/12/2025 1:51 PM T [facility] CO2 26 21 - 32 mmol/L LAB CHEMISTRY METHOD 03/12/2025 1:51 PM [facility] Anion Gap 7 3 - 11 LAB CHEMISTRY METHOD 03/12/2025 1:51 PM [facility] Glucose 113(H) 70 - 100 mg/dL LAB CHEMISTRY METHOD 03/12/2025 1:51 PM [facility] BUN 19 5 - 25 mg/dL LAB CHEMISTRY METHOD 03/12/2025 1:51 PM [facility] Creatinine 0.69 0.50 - 1.10 mg/dL LAB CHEMISTRY METHOD 03/12/2025 1:51 PM [facility] eGFR 102 >=60 mL/min/1. 73m2 LAB CHEMISTRY METHOD 03/12/2025 1:51 PM [facility] Comment:Calculation based on the Chronic Kidney Disease Epidemiology Collaboration (CKD-EPI) equation refit without adjustment for race. BUN/Creatinine Ratio 27.5 LAB CHEMISTRY METHOD 03/12/2025 1:51 PM [facility] Calcium 8.9 8.5 - 10.5 mg/dL LAB CHEMISTRY METHOD 03/12/2025 1:51 PM [facility] AST (SGOT) 13 10 - 42 unit/L LAB CHEMISTRY METHOD 03/12/2025 1:51 PM [facility] ALT (SGPT) 24 10 - 60 unit/L LAB CHEMISTRY METHOD 03/12/2025 1:51 PM [facility] Alkaline Phosphatase 100 42 - 121 unit/L LAB CHEMISTRY METHOD 03/12/2025 1:51 PM [facility] Total Protein 6.7 6.0 - 8.0 g/dL LAB CHEMISTRY METHOD 03/12/2025 1:51 PM [facility] Albumin 3.6 3.2 - 5.0 g/dL LAB CHEMISTRY METHOD 03/12/2025 1:51 PM [facility] Total Bilirubin 0.3 0.0 - 1.4 mg/dL LAB CHEMISTRY METHOD 03/12/2025 1:51 PM [facility] Blood Venous blood specimen / Unknown Venipuncture / Unknown 03/12/2025 9:41 AM EDT 03/12/2025 12:11 PM EDT Maddi FUNEZ LAB BLOOD ORDERABLES Final Resul t [facility] [address] [place] [address], * EGD Dilation; Anesthesia - MAC; [facility] ENDOSCOPY (03/07/2025 10:14 AM EDT) Anatomical Region Laterality Modality Endoscopy 03/07/2025 9:59 AM EDT Impressions 03/07/2025 10:15 AM EDT - Normal examined duodenum. - Gastritis. Biopsied. - Small hiatal hernia. Recommendation: - Discharge patient to home. - Await pathology results. - Return to GI clinic PRN. Narrative 03/07/2025 10:15 AM EDT [facility] GI Patient Name: Kristy [...] verified by the physician, the nurse, the laborer pipeline and the mechanic sound technician in the pre-procedure area in the [...] was present. Procedure Code(s): --- Professional --- 35124, Esophagogastroduodenoscopy, flexible, transoral; with insertion of guide wire followed by passage of dilator(s) through esophagus over guide wire 43687, 59, Esophagogastroduodenoscopy, flexible, transoral; with biopsy, single or multiple Diagnosis Code(s): --- Professional --- K29.70, Gastritis, unspecified, without bleeding K44.9, Diaphragmatic hernia without obstruction or gangrene R13.10, Dysphagia, unspecified CPT copyright 2020 [employer]. All rights reserved. The codes documented in this report are preliminary and upon debt management counselor review may be revised to meet current compliance requirements. Danica Park MD 03/07/2025 10:15:15 AM This report has been signed electronically.Danica Park MD Number of Addenda: 0 Note Initiated On: 03/07/2025 9:59 AM Scope In: Scope Out: Endoscopy Department at [facility] - [address] [place] [phone] Procedure Note Danica Park MD - 03/07/2025 [facility] GI Patient Name: Kristy [...] the physician, the nurse, theanesthetist and the mechanic sound technician in the pre-procedure area in the [...] was present. Procedure Code(s): --- Professional --- 41221, Esophagogastroduodenoscopy, flexible, transoral; with insertion of guide wire followed by passage of dilator(s) through esophagus over guidewire 15032, 59, Esophagogastroduodenoscopy, flexible, transoral; with biopsy, single or multiple Diagnosis Code(s): --- Professional --- K29.70, Gastritis, unspecified, without bleeding K44.9, Diaphragmatic hernia without obstruction or gangrene R13.10, Dysphagia, unspecified CPT copyright 2020 [employer]. All rights reserved. The codes documented in this report are preliminary and upon debt management counselor reviewmay be revised to meet current compliance requirements. Danica Park MD 03/07/2025 10:15:15 AM This report has been signed electronically.Danica Park MD Number of Addenda: 0 Note Initiated On: 03/07/2025 9:59 AM Scope In: Scope Out: Endoscopy Department at [facility] - [address] [place] [phone] IMPRESSION: - Normal examined duodenum. - Gastritis. Biopsied. - Small hiatal hernia. Recommendation: - Discharge patient to home. - Await pathology results. - Return to GI clinic PRN. us Danica Park MD GI~PROCEDURE ORDERABLES Fin al Result * Tissue exam (03/07/2025 10:04 AM EDT) Addendum Immunohistochemistry : Helicobacter pylori: negative. 10:59 AM EDT [facility] Addendum electronically signed by Vi [...] on H&E stained slide. 10:59 AM EDT [facility] at 1013 EDT Gross Description A. Stomach, gastric biopsy: Labeled stomach gastric . Received in formalin are three irregular preciado mucosal tissue fragments, each measuring approximately 0.4 cm in greatest dimension, which are wrapped in paper and submitted in toto in one cassette, three pieces, multiple levels on one slide. EUSEBIO 10:59 AM EDT [facility] Disclaimer NOTE: The immunohistochemical tests and in situ hybridization tests were developed and their performance characteristics were determined by [facility]. They have not been [...] fixed and paraffin embedded. 10:59 AM EDT [facility] Tissue Stomach structure / Unknown 03/07/2025 10:04 AM EDT 03/07/2025 12:15 PM EDT us Danica Park MD LAB PATHOLOGY ORDERABLES Ed ited Result - Final [facility] [address] [place] [address], * MG Mammo Digital Screening w Tino [...] for biopsy. PQRI CPT II 3342F Code 94330, 86835 PQRI 225 CPT II 7025F TISSUE DENSITY: There are scattered areas of fibroglandular density. (BI-RADS category B) IMPRESSION: Benign. BI-RADS CATEGORY: 2 - BENIGN RECOMMENDATION: Screening bilateral mammogram is recommended in 1 year. Mammo Location: [facility], [address] [place] [address] -------- FINAL REPORT -------- Dictated By: Joseph Chaudhary Dictated Date: 11/20/2024 11:16 ET Assigned Physician: Joseph Chaudhary Reviewed and Electronically Signed By: Joseph Chaudhary Signed Date: 11/20/2024 11:19 ET Workstation ID: [id number] Transcribed By: Self Edit Transcribed Date: 11/20/2024 11:16 ET Narrative 11/20/2024 11:19 AM EDT CLINICAL: The patient is a 54 years Female presenting for routine screening mammography. COMPARISON: Most recently 11/18/2023 and most remotely 04/16/2017. TECHNIQUE: Full-field digital mammography of the breasts bilaterally consisting of tomosynthesis in MLO and CC projection is performed in the [employer] 2000-D unit. Computer aided detection utilizing the iCAD system was utilized. FINDINGS: The breasts are again seen to be composed of a combination of fatty and fibroglandular elements. A few scattered benign calcifications bilaterally are stable. There is no suspicious cluster of microcalcifications, mass, or area of architectural distortion. There is no skin thickening or nipple retraction. Procedure Note Joseph Cahudhary MD - 11/20/2024 CLINICAL: The patient is a 54 years Female presenting for routinescreening mammography. COMPARISON: Most recently 11/18/2023 and most remotely 04/16/2017. TECHNIQUE: Full-field digital mammography of the breasts bilaterallyconsisting of tomosynthesis in MLO and CC projection is performed in theGE Senographe 2000-D unit. Computer aided detection utilizing the PE INTERNATIONALystem was utilized. FINDINGS: The breasts are again [...] for biopsy. PQRI CPT II 3342F Code 47032, 84664 PQRI 225 CPT II 7025F TISSUE DENSITY: There are scattered areas of fibroglandular density.(BI-RADS category B) IMPRESSION: Benign. BI-RADS CATEGORY: 2 - BENIGN RECOMMENDATION: Screening bilateral mammogram is recommended in 1 year. Mammo Location: [facility], [address] [place] [phone] -------- FINAL REPORT -------- Dictated By: Joseph Chaudhary Dictated Date: 11/20/2024 11:16 ET Assigned Physician: Joseph Chaudhary Reviewed and Electronically Signed By: Joseph Chaudhary Signed Date: 11/20/2024 11:19 ET Workstation ID: [id number] Transcribed By: Self Edit Transcribed Date: 11/20/2024 [...] probability of hip fracture of 0.9%. Code 71780 -------- FINAL REPORT -------- Dictated By: Joseph Chaudhary Dictated Date: 11/08/2024 11:55 ET Assigned Physician: Joseph Chaudhary Reviewed and Electronically Signed By: Joseph Chaudhary Signed Date: 11/08/2024 11:56 ET Workstation ID: [id number] Transcribed By: Self Edit Transcribed Date: 11/08/2024 [...] density of the femurs bilaterally is 0.886 gm/ft4wzhli is 88% of that of young normals [...] probability of hip fracture of 0.9%. Code 29255 -------- FINAL REPORT -------- Dictated By: Joseph Chaudhary Dictated Date: 11/08/2024 11:55 ET Assigned Physician: Joseph Chaudhary Reviewed and Electronically Signed By: Joseph Chaudhary Signed Date: 11/08/2024 11:56 ET Workstation ID: [id number] Transcribed By: Self Edit Transcribed Date: 11/08/2024 11:55 ET Tanja Larkin MD IMG DXA PROCEDURES Final Resul t * HPV with reflex genotype (10/26/2024 12:00 AM EDT) HPV Negative Negative LAB MICROBIOLOGY METHOD 10/29/2024 3:58 PM EDT [facility] Brushing/Spatula Cervix uteri structure / Unknown 10/26/2024 10/29/2024 6:20 AM EDT Yenni Sandoval MD LAB MOLECULAR DIAGNOSTIC S ORDERABLES Final Result [facility] [address] [place] [address], * COLONOSCOPY Anesthesia - MAC; [facility] ENDOSCOPY (07/24/2024 8:04 AM EST) [...] verified by the physician, the nurse, the laborer pipeline and the mechanic sound technician in the pre-procedure area in the [...] history of colonic polyps CPT copyright 2020 [employer]. All rights reserved. The codes documented in this report are preliminary and upon debt management counselor review may be revised to meet current compliance requirements. Danica Park MD 07/24/2024 8:05:30 AM This report has been signed electronically.Danica Park MD Number of Addenda: 0 Note Initiated On: 07/24/2024 7:48 AM Scope Withdrawal Time: 0 hours 6 minutes 20 seconds Scope In: 7:53:45 AM Scope Out: 8:04:47 AM Endoscopy Department at [facility] - [address] [place] [phone] Procedure Note Danica Park MD - 07/24/2024 [...] the physician, the nurse, theanesthetist and the mechanic sound technician in the pre-procedure area in the [...] history of colonic polyps CPT copyright 2020 [employer]. All rights reserved. The codes documented in this report are preliminary and upon debt management counselor reviewmay be revised to meet current compliance requirements. Danica Park MD 07/24/2024 8:05:30 AM This report has been signed electronically.Danica Park MD Number of Addenda: 0 Note Initiated On: 07/24/2024 7:48 AM Scope Withdrawal Time: 0 hours 6 minutes 20 seconds Scope In: 7:53:45 AM Scope Out: 8:04:47 AM Endoscopy Department at [facility] - [address] [place] [phone] IMPRESSION: - Internal hemorrhoids. - The examination [...] Relevant to Health Maintenance Insurance MEDICARE MEDICARE [place]ID [place] Care Teams Feed In Worker Relationship Specialty Start Date End Date Tanja Larkin MD [address] [place] [phone] PCP - General Internal Medicine 05/04/24
--- OUTSIDE RECORDS SUMMARY | 2025-05-31 16:54 | XMS_ITS | Encounter Summary ---
Author Organization [employer] Address [address] [place] [address] Care Team Providers Care Planner/Scheduler Name Role Phone Unavailable Primary Care Provider Unavailabl e Reason for Visit * Reason Onset Date Comments walking in 12/19/2023 Encounter Details Date Type Department Care Team (Late st Contact Info) Description 12/19/2023 Telephone [facility] [address] [place] [address] Lopez Gill BDS [address] [place] [address] walking in Social History Tobacco Use Types [...] Ordaz - 12/19/2023 12:47 PM EDT Contacted [facility] and front desk manager informed if patient is looking to be [...]
--- OUTSIDE RECORDS SUMMARY | 2025-05-31 16:54 | XMS_ITS | Clinical Summary ---
Author Organization [employer] Address [address] [facility] [address] [place] [address] Care Team Providers Care Electric Stove Installer Name Role Phone Unavailable Primary Care [...] TABLET FOUR TIMES DAILY Active nystatin (Mycostatin) 877908 UNIT/ML suspension Take 4 mL by mouth [...] Date Last Done Comments CT Colonography 1969 Depression Screening 1969 FIT DNA/Cologuard 1969 [...] 11/20/2024 Dental X-Ray: Full Mouth 04/14/2027 04/13/2024 Colonoscopy 07/24/2034 07/24/2024 Colorectal Cancer Screening 07/24/2034 Hepatitis B Vaccines Completed 11/07/2013, 06/13/2013, 05/09/2013 [...] Most Recently Relevant to Health Maintenance Insurance [facility]
--- OUTSIDE RECORDS SUMMARY | 2025-05-31 16:54 | XMS_ITS | Clinical Summary ---
Author Organization [facility] Address [address] [place] [address] Phone Care Team Providers Care Insurance Verification Clerk Name Role Phone Carlos Gonsales MD Primary Care Provider [phone] Social History Tobacco Use Types Packs/Day Years [...] Medical Devices Not on file Insurance [place]UE [place] OUT STATE PPO OUT [facility] PPO OUT [facility] PPO [place] OUT OF STATE PPO [facility] OUT OF STATE PPO [facility] OUT OF STATE PPO OUT [facility] [place] [address] [place] [address] PPO [place] [place] OUT OF STATE PPO Care Teams Insurance Verification Clerk Relationship Specialty Start Date End Date Carlos Gonsales MD [address] [place] [address] PCP - General Internal Medicine 08/14/21 Additional Source Comments The information contained in this document represents components of the legal health record. It is not the complete legal health record.[facility]
--- OUTSIDE RECORDS SUMMARY | 2025-05-31 16:55 | XMS_ITS | Patient Health Record ---
Author Organization [facility] [address] Address [address] [place] [address] Care Team Providers Care Tire Duster Name Role Phone JOE COOLEY Primary Care Provider SADAF Son Unavailable [phone] Maddi Pérez Unavailable [phone] Allergies Allergen (clinical drug ingredient) Drug/Non Drug [...] <145 mg/dL H Chol/HDL Ratio 3.6 0.0-4.4 THYROID STIMULATING HORMONE WITH REFLEX TO FREE [...] Notes Problem Obesity due to excess calories (924071101) Other obesity due to excess calories (E66.09) Active confirmed Problem Overweight (924571088) Overweight (E66.3) Active confirmed Problem Anxiety disorder (416762424) Anxiety disorder, unspecified (F41.9) Active confirmed Problem Fibromyalgia (000746557) Fibromyalgia (M79.7) Active confirmed Problem Essential hypertension (35668722) Essential hypertension (I10) Active confirmed Problem BMI 25-29 - overweight (102022098) Body mass index [BMI] 29.0-29.9, adult (Z68.29) Active confirmed Problem Body mass index 30.00 to 34.99 (166764460441836 ) Body mass index [BMI] 32.0-32.9, adult (Z68.32) Active confirmed Problem Body mass index 30.00 to 34.99 (897177957661699 ) BMI 31.0-31.9,adult (Z68.31) Active confirmed Problem Depression (268414585) Depression, unspecified (F32.A) Active confirmed Problem Obesity (861538307) Obesity (E66.9) Active confirmed Problem History of asthma (818520391) History of asthma (Z87.09) Active confirmed Vital Signs Heart Rate 71 /min 03/12/2025 Oximetry 99 % 03/12/2025 Blood pressure diastolic 80 mm Hg 03/12/2025 Height 59 in 03/12/2025 Blood pressure systolic 128 mm Hg 03/12/2025 Weight 155.4 lbs 03/12/2025 BMI 31.38 kg/m2 03/12/2025 Encounters Encounter Location Date Provider Diagnosis [facility] [address] [address] 06/13/2024 Maddi Pérez Overweight E66.3 ; B AK 28.0-28.9,adult Z68.28 ; Essential hypertension I10 ; Anxiety disorder, unspecified F41.9 ; Depression, unspecified F32.A ; Fibromyalgia M79.7 and Weight loss counseling, encounter for Z71.3 [facility] [address] [address] 03/12/2025 Maddi Svrcek Obesity E66.9 ; BMI 31.0-31.9,adult Z68.31 ; Essential hypertension I10 ; Anxiety disorder, unspecified F41.9 ; Depression, unspecified F32.A ; Fibromyalgia M79.7 and Weight loss counseling, encounter for Z71.3 [facility] [address] [address] 05/31/2024 Maddi Svrcek [facility] [address] [place] [address] 03/06/2025 Maddi Svrcek [facility] [address] [place] [address] [place] [phone] 03/08/2025 SADAF BORHOT [facility] [address] [place] [address] 03/11/2025 SDAAF BORHOT [facility] [address] [address] 03/12/2025 Maddi Svrcek Other obesity due to excess calories E66.[address] [facility] [address] [place] [address] 03/20/2025 SADAF BORHOT [facility] [address] 04/10/2025 Maddi Svrcek Assessments Encounter Date [...] Dictation was accomplished with the use of [employer] voice recognition software, prone to medical misidentifications [...] Dictation was accomplished with the use of [employer] voice recognition software, prone to medical misidentifications [...] Dictation was accomplished with the use of [employer] voice recognition software, prone to medical misidentifications [...] Dictation was accomplished with the use of [employer] voice recognition software, prone to medical misidentifications [...] Dictation was accomplished with the use of [employer] voice recognition software, prone to medical misidentifications [...] Dictation was accomplished with the use of [employer] voice recognition software, prone to medical misidentifications [...] Dictation was accomplished with the use of [employer] voice recognition software, prone to medical misidentifications [...] Dictation was accomplished with the use of [employer] voice recognition software, prone to medical misidentifications [...] Dictation was accomplished with the use of [employer] voice recognition software, prone to medical misidentifications [...] Dictation was accomplished with the use of [employer] voice recognition software, prone to medical misidentifications [...] Dictation was accomplished with the use of [employer] voice recognition software, prone to medical misidentifications [...] Dictation was accomplished with the use of [employer] voice recognition software, prone to medical misidentifications [...] Dictation was accomplished with the use of [employer] voice recognition software, prone to medical misidentifications [...] Dictation was accomplished with the use of [employer] voice recognition software, prone to medical misidentifications [...] Insured Coverage Start Date Coverage End Date [facility] [address] [place] [address] [id number] Kristy Li Self - patient is the insured Medical (General) History Medical History History ICD Code seasonal allergies hypertension hypercholesterolemia asthma weight gain/loss gallbladder disease Arthritis heart murmur anxiety depression hearing loss Surgical History Surgery Date(Month/Year) cholecystectomy 11/28/23 biliary dyskinesia raised her bladder right TKR 12/2024
--- OUTSIDE RECORDS SUMMARY | 2025-05-31 16:55 | XMS_ITS | Encounter Summary ---
Author Organization [facility] Address [address] [place] [address] Care Team Providers Care Wharf Tally Clerk Name Role Phone Tanja Larkin MD Primary Care Provider [phone] Encounter Details Date Type Department Care Team ([facility] Contact Info) Description 04/18/2025 Results Follow-Up Gastroenterology - [place] 175 [facility] 175 [facility] 200 [place] [phone] Danica Park MD 299 [facility] [address] [place] [address] Social History Tobacco Use Types Packs/Day Years [...] for your loved ones. For example, child adolescent care or elderly care for an older [...] 9:00 AM EST Office Visit Pulmonology - [place] 175 [facility] 200 [place] [phone] Abhay Coppola MD [address] [place] [phone] 06/18/2025 8:40 AM EST Office Visit [facility] - [facility] 154 300 [facility] 154 [place] [phone] Marycarmen Georges NP [address] [place] [address] [place] [phone] 07/31/2025 8:50 AM EST Office Visit Gastroenterology - [address] [facility] [address] [place] [phone] Daphnie Almanza PA [address] [facility] [address] [place] [address] 09/03/2025 9:45 AM EDT Office Visit Internal Medicine - [place] [address] [place] [phone] Tanja Larkin MD [address] [place] [phone] documented as of this encounter Visit Diagnoses Not on filedocumented in this encounter Additional Health Concerns Assessment Noted Time PHQ-9 Depression Total Score: 19 08/29/ 025 3:44 PM EST documented as of this encounter Care Teams Wharf Tally Clerk Relationship Specialty Start Date End Date Tanja Larkin MD 175 [facility] 200 [place] [phone] PCP - General Internal Medicine 05/04/24 documented as of this encounter
--- OUTSIDE RECORDS SUMMARY | 2025-05-31 16:55 | XMS_ITS | Encounter Summary ---
Author Organization [facility] [place] [address] Care Team Providers Care Occupational Psychologist Name Role Phone Tanja Larkin MD Primary Care Provider [phone] Encounter Details Date Type Department Care Team (Latest Contact Info) Description 10/29/2024 Lab Requisition [facility] 299 [facility] [place] [address] Yenni Sandoval MD [address] [facility] [address] [place] [phone] Encounter for gynecological examination (general) (routine) without [...] for your loved ones. For example, rn maternal child or elderly care for an older [...] 9:00 AM EST Office Visit Pulmonology - [place] 175 [facility] 200 [place] [phone] Abhay Coppola MD [address] [place] [phone] 06/18/2025 8:40 AM EST Office Visit [facility] - [facility] 154 300 [facility] 154 [place] [phone] Marycarmen Georges NP [address] [place] [address] Dr [address] [place] [address] 07/31/2025 8:50 AM EST Office Visit Gastroenterology - 299 [facility] 299 [facility] [address] [place] [phone] Daphnie Almanza PA 299 [facility] [address] [place] [address] 09/03/2025 9:45 AM EDT Office Visit Internal Medicine [facility] 175 [facility] 200 [place] [phone] Tanja Larkin MD [address] [place] [phone] documented as of this encounter Procedures Procedure [...] LAB MICROBIOLOGY METHOD 10/29/2024 3:58 PM EDT [facility] Brushing/Spatula Cervix uteri structure / Unknown 10/26/2024 10/29/2024 6:20 AM EDT us Yenni Sandoval MD LAB MOLECULAR DIAGNOSTIC S ORDERABLES Final Result [facility] [address] [place] [address], * Pap smear (10/26/2024 12:00 AM EDT) Interpretation Negative for intraepithelial lesion or malignancy 10/30/2024 9:00 AM EDT [facility] at 0900 EDT General Categorization Negative 10/30/2024 9:00 AM EDT [facility] Other Findings Atrophy 10/30/2024 9:00 AM EDT [facility] Specimen Adequacy Satisfactory for evaluation 10/30/2024 9:00 AM EDT [facility] Pap Methodology Liquid Based Pap Test 10/30/2024 9:00 AM EDT [facility] Disclaimer The Pap test is a screening test which carries an inherent false negative rate. These test results should be correlated with the patient's clinical findings and history. This Pap test was processed using an automated screening system. Technical cytopathology services provided by [facility], at [address] [place] [address] (CLIA # [id number]/Selene Sutherland MD, Chinese Language Professor.) 10/30/2024 9:00 AM EDT [facility] Console Pap Interpretation Reported 10/30/2024 9:00 AM EDT [facility] Brushing/Spatula Cervix uteri structure / Unknown 10/26/2024 10/29/2024 6:20 AM EDT us Yenni Sandoval MD LAB CYTOLOGY ORDERABLES Final Result [facility] [address] [place] [address], documented in this encounter Visit Diagnoses Diagnosis Encounter for gynecological examination (general) (routine) without abnormal findings documented in this encounter Additional Health Concerns Assessment Noted Time PHQ-9 Depression Total Score: 19 025 3:44 PM EST documented as of this encounter Care Teams Occupational Psychologist Relationship Specialty Start Date End Date Tanja Larkin MD [address] [facility] 200 [place] [phone] PCP - General Internal Medicine 05/04/24 documented as of this encounter
== END 2025-05-31 13:42 | disposition home or self-care (01) ==
PROVIDERS: PCP Internal Medicine; Visit Provider Registered Nurse Emergency
DX: M47.812 Spondylosis without myelopathy or radiculopathy, cervical region (principal); G89.4 Chronic pain syndrome; M50.30 Other cervical disc degeneration, unspecified cervical region; M54.12 Radiculopathy, cervical region; M50.90 Cervical disc disorder, unspecified, unspecified cervical region
CPT/HCPCS: 99213; G2211

== ENCOUNTER → 2025-05-31 13:00 | Outpatient (BNVA) | payer MEDICARE, MEDICAID, SELFPAY | PROVIDERS: PCP Internal Medicine; Visit Provider Registered Nurse Emergency | DX: G89.4 Chronic pain syndrome (principal); M47.812 Spondylosis without myelopathy or radiculopathy, cervical region; M50.30 Other cervical disc degeneration, unspecified cervical region; M54.12 Radiculopathy, cervical region; M50.90 Cervical disc disorder, unspecified, unspecified cervical region | CPT/HCPCS: 99212 ==